=== PATIENT | female | born 1940 | race Caucasian/White ===

== ENCOUNTER 2016-12-19 10:36 | Inpatient (IN) | payer MEDICARE, BC ==
[~2016-12-19] VITALS: Ht 152.4 cm; Wt 86.0 kg
[2016-12-19] VITALS (9 sets, daily range): BP systolic 141–161; BP diastolic 65–73; PULSE 78–104; RESP 20–28; TEMP 96.4–97.7; O2SAT 88–94; Ht 152.4 cm; Wt 86.0 kg
[~2016-12-19 10:36] MED LIST: ACET-2723 PO; ALBU1.252 AEROSOL; ALBU18HF2 INH; AMLO5TAB2 PO; ASPI81TA2 PO; CITA10TA7 PO; FURO40TA5 PO; GABA-305 PO; GABA-336 PO; HYDR-4246 PO; LANS15TA3 PO; MELO-32 PO; POTA10TA14 PO; PRED20TA PO
--- OUTSIDE RECORDS SUMMARY | 2016-12-19 10:44 | XMS REPORT | Referral Summary ---
Author Author [facility], Family [facility] Organization [facility] Address Unknown Phone Unavailable Care Team Providers Care Hat Marker Name Role Phone Angelique Santiago Primary Care Physician [phone] Encounter VC Date(s): 11/14/16 - 11/14/16 [facility], [address] [place] [id number] Discharge Diagnosis: Chronic pain Discharge Diagnosis: Benign hypertension Discharge Diagnosis: Great toe pain Discharge Diagnosis: COPD (chronic obstructive pulmonary disease) Discharge Disposition: 01-Home or Self Care Attending Physician: Feli Santiago DO Admitting Physician: Feli Santiago DO Vital Signs Most recent to 1 oldest [Reference Range]: Temperature Tympanic 36.7 degC [36.6-38.1 degC] (11/14/16 8:24 AM) Peripheral Pulse 73 bpm Rate [60-100 bpm] (11/14/16 8:24 AM) Blood Pressure 134/78 mmHg [90-140/60-90 mmHg] (11/14/16 8:24 AM) SpO2 95 % (11/14/16 8:24 AM) Problem List Condition Effective Dates Status Health Status Informant COPD with acute Active exacerbation(Confirm ed) Anxiety(Confirmed) Active Asthma(Confirmed) Active Benign Active hypertension(Confirm ed) Spondylosis of Active cervical joint(Confirmed) COPD (chronic Active obstructive pulmonary disease)(Confirmed) Chronic Active pain(Confirmed) Degenerative disc Active disease, cervical(Confirmed) Gout(Confirmed) Active Cervicalgia(Confirme Active d) Obesity(Confirmed) Active patient Osteoarthritis(Confi Active rmed) Acute and chronic Active respiratory failure with hypoxia(Confirmed) Acquired Active spondylolisthesis(Co nfirmed) Tobacco Active patient user(Confirmed) Allergies, Adverse Reactions, Alerts Substance Reaction Severity Status cefaclor MUSCLES RELAX Active Medications amLODIPine 5 mg oral tablet 5 mg 1 tabs, Oral, Daily, for blood pressures above 140, # 30 tabs, 11 Refill(s) , Pharmacy: [facility] #[id number], 1 tabs Oral Daily,Instr:for blood pressures above 140 Start Date: 08/14/16 Status: Ordered aspirin 81 mg, Oral, Daily, 0 Refill(s) Start Date: 06/30/14 Status: Ordered Breo Ellipta 100 mcg-25 mcg/inh inhalation powder 1 puffs, Inhalation, Daily, SAMPLE GIVEN, # 30 Each, 0 Refill(s) Start Date: 05/15/16 Status: Ordered citalopram 10 mg oral tablet 10 mg 1 tabs, Oral, Daily, # 30 tabs, 11 Refill(s), Pharmacy: [facility] # [id number], 1 tabs Oral Daily Start Date: 08/14/16 Status: Ordered DuoNeb 0.5 mg-2.5 mg/3 mL inhalation solution 3 mL, Inhalation, QID, # 30 Each, 2 Refill(s), Pharmacy: [facility] # [id number] Start Date: 07/24/16 Status: Ordered gabapentin 100 mg oral capsule 100 mg 1 caps, Oral, BID, as needed for pain, 0 Refill(s) Start Date: 06/19/16 Status: Ordered gabapentin 600 mg oral tablet See Instructions, TAKE ONE TABLET BY MOUTH AT BEDTIME, # 90 tabs, eRx: [facility] #[id number], TAKE ONE TABLET BY MOUTH AT BEDTIME Start Date: 09/20/16 Status: Ordered gabapentin 600 mg oral tablet 600 mg 1 tabs, Oral, Bedtime (once a day), 0 Refill(s) Start Date: 06/19/16 Status: Ordered Lasix 40 mg oral tablet See Instructions, TAKE 1 TABLET BY MOUTH EVERY DAY, # 30 tabs, 2 Refill(s), eRx : [facility] #[id number], TAKE 1 TABLET BY MOUTH EVERY DAY Start Date: 01/12/15 Status: Ordered meloxicam 15 mg oral tablet 15 mg 1 tabs, Oral, Daily, # 30 tabs, 0 Refill(s) Start Date: 08/14/16 Status: Ordered Mucinex DM 30 mg-600 mg oral tablet, extended release 1 tabs, Oral, q12hr, as needed., 0 Refill(s) Start Date: 05/20/14 Status: Ordered multivitamin Daily, 0 Refill(s) Start Date: 11/17/14 Status: Ordered [place] 5 mg-325 mg oral tablet 1-2 tabs, Oral, q4hr, as needed for pain, # 90 tabs, 0 Refill(s) Start Date: 11/14/16 Status: Ordered potassium chloride 10 mEq oral tablet, extended release See Instructions, TAKE 1 TABLET BY MOUTH EVERY DAY, # 30 unknown unit, 2 Refill( s), eRx: [facility] #[id number], TAKE 1 TABLET BY MOUTH EVERY DAY Start Date: 01/12/15 Status: Ordered PriLOSEC 20 mg oral delayed release capsule 20 mg 1 caps, Oral, BID, # 180 caps, 0 Refill(s), Pharmacy: [facility] # [id number], 1 caps Oral BID Start Date: 11/14/16 Status: Ordered ProAir HFA 90 mcg/inh inhalation aerosol See Instructions, INHALE TWO PUFFS BY MOUTH EVERY 4 TO 6 HOURS NEEDED, # 8.5 g, 2 Refill(s), Pharmacy: [facility] #[id number] Start Date: 07/02/15 Status: Ordered Promethazine DM 6.25 mg-15 mg/5 mL oral syrup 5 mL, Oral, q6hr, as needed for cough, # 120 mL, 0 Refill(s), Pharmacy: [facility] #[id number] Start Date: 09/14/16 Status: Ordered Results No data available for this section Immunizations Given and Recorded Vaccine Date Status Refusal Reason influenza virus vaccine, inactivated1 06/22/16 Given influenza virus vaccine, inactivated 06/25/15 Recorded influenza virus vaccine, live 06/25/13 Given influenza virus vaccine, live 07/15/12 Given pneumococcal 13-valent conjugate vaccine 03/22/15 Given pneumococcal 13-valent conjugate vaccine2 08/14/13 Given pneumococcal 23-polyvalent vaccine 08/14/13 Given tetanus-diphth toxoids (Td) adult/adol 03/27/08 Recorded zoster vaccine live 08/07/13 Given 1Result Comment: Seqirus 2Result Comment: [06/10/2015 Uncharted] Uploaded in Error - CC Procedures Procedure Date Related Diagnosis Body Site Appendectomy Cholecystectomy Hysterectomy Social History Social History Type Response Smoking Status Former smoker; Type: Cigarettes; Tobacco use per day: 1 Pack ; Number of years: 30; Total pack years: 301 1Quit in 1990 Assessment and Plan Extracted from: Title: Office Visit Note Author: Feli Santiago DO Date: 11/14/16 Assessment/Plan Benign hypertension BMP today, continue current regimen. Ordered: Office Visit Level 4 Est 48010 Chronic pain Continue current regimen, return to clinic in 3 months. Ordered: Office Visit Level 4 Est 60999 COPD (chronic obstructive pulmonary disease) Exacerbation is improving, continue to monitor. Ordered: Office Visit Level 4 Est 84799 Great toe pain Uric acid today with further recommendations after results. Ordered: Office Visit Level 4 Est 54719 Uric Acid
--- OUTSIDE RECORDS SUMMARY | 2016-12-19 10:44 | XMS REPORT | Continuity of Care Document ---
Author Author [facility] Organization [facility] Address Unknown Phone Unavailable Support Name Relationship Address Phone ALIREZA MOBLEY MD Caregiver [address] [place] [address] [place] [address] JALYN DONOVAN MD Caregiver [address] [place] [address] [place] [address] [phone] RAMIRO SHARPE Next Of Kin [address] [place] [address] Insurance Providers Payer Name Policy Number Subscriber Name Relationship Medicare [id number] Valeria Corrigan 18 Self [facility] [id number] Valeria Corrigan 18 Self Advance Directives Directive Response Recorded Date/Time Advanced Directives Type Living Will DPOA for Healthcare 05/07/14 5:47pm Ordered Resuscitation Status Full Code 05/07/14 5:50pm Resuscitation Documents on File No 05/07/14 5:47pm Chief Complaint and Reason for Visit Chief Complaint COPD EXACERBATION Reason for Visit COPD exacerbation Hyponatremia Hypokalemia Atrial fibrillation, currently in sinus rhythm Constipation Problems Medical Problems Problem Onset Date Status COPD exacerbation Unknown Active COPD exacerbation Unknown Active Hypoxia Unknown Active COPD exacerbation Unknown Active Acute respiratory insufficiency Unknown Active HTN (hypertension) Unknown Active Obesity (BMI 30-39.9) Unknown Active Steroid-induced hyperglycemia Unknown Active Hyponatremia Unknown Active Elevated serum creatinine Unknown Resolved Hypokalemia Unknown Resolved Atrial fibrillation, currently in sinus rhythm Unknown Active Constipation Unknown Active Medications Medication Dose Route Sig Days/Qty Instructions Order Date Discontinued Date Status Meloxicam 15 Mg PO DAILY 03/14/11 Active Hydrochlorothiazide 25 Mg PO DAILY 03/14/11 Active Lansoprazole 15 Mg PO DAILY 03/14/11 05/07/14 Discontinued Gabapentin 300 TID PRN 04/30/14 05/07/14 Discontinued Gabapentin 500 BEDTIME 04/30/14 05/18/14 Discontinued Acetaminophen 325-650 EVERY 5 HOURS PRN PRN ORDERS 05/08/14 Active Amlodipine Besylate 5 Mg PO DAILY 05/08/14 05/18/14 Discontinued Azithromycin IV DAILY 05/08/14 05/18/14 Discontinued Budesonide 05/08/14 05/18/14 Discontinued Ceftriaxone Na/Dextrose,Iso IV DAILY 05/08/14 05/18/14 Discontinued Clotrimazole 1 Tab PO 5 TIMES DAILY DISSOLVE IN MOUTH. 05/08/14 Discontinued Diphenhydramine HCl 1 Cap PO BEDTIME 05/08/14 Active Docusate Sodium 1 Cap PO TWICE A DAY 05/08/14 Active Guaifenesin EVERY 12 HOURS 05/08/14 05/18/14 Discontinued Hydrocodone/Acetaminophen 1-2 EVERY 4 HOURS PRN PRN ORDERS Active Hydrocodone/Chlorphen Polis TWICE A DAY 05/08/14 05/18/14 Discontinued Insulin Glargine,Hum.rec.anlog 5 SQ BEDTIME 05/08/14 05/18/14 Discontinued Loratadine 1 Tab PO DAILY 05/08/14 Active Lorazepam 0.5 IV Every 6 Hours PRN PRN ORDERS 05/08/14 05/18/14 Discontinued Methylprednisolone Sod Succ IV Every 6 Hours 05/08/14 05/18/14 Discontinued Albuterol Sulfate 2 Puff ORAL INH Q4H PRN SHORTNESS OF AIR/WHEEZING 30 Days 05/18/14 Active Amlodipine Besylate 10 Mg PO DAILY 30 Qty 05/18/14 Active Digoxin 125 Mcg PO DAILY 30 Qty 05/18/14 Active Gabapentin 300 Mg PO BEDTIME 30 Days 05/18/14 Active Guaifenesin/Dextromethorphan 1 Tab PO EVERY 12 HOURS 30 Days 05/18/14 Active Hydrocodone/Chlorphen Polis 5 Ml PO TWICE A DAY PRN COUGH 150 Qty 05/18 Active Polyethylene Glycol 3350 17 Gm PO DAILY 1 Qty 05/18/14 Active Sodium Chloride 2 Ransom EA NOSTRIL FOUR TIMES DAILY 30 Days 05/18/14 Active Lorazepam 0.5 Mg PO Every 6 Hours PRN ANXIETY/AIRHUNGER/AGITATION 30 Qty 05/18/14 Active Fluticasone/Salmeterol 1 Puff ORAL INH TWICE A DAY 1 Qty 05/18/14 Active Lansoprazole 1 Cap PO DAILY 30 Qty 05/18/14 Active Prednisone 1 Tab PO taper 13 Qty Take 1 tablet, by mouth, daily with breakfast. 05/18/14 Active Social History No social history. Hospital Discharge Instructions Instructions: Care Instructions: Reason for Hospitalization: COPD exasterbation I was in the hospital because (patient own words): " I couldn't breathe" Discharge Diet: No added salt, may have up to 2 Quarts fluid a day Discharge Activity: As tolerated Follow Up Appointments: Dr Donovan in 1 week Patient Instructions: Refrain from smoking Use Acapella regularly Condition at time of discharge: Good If you have questions about your care or wound, Call [facility] at [phone] and have the smokehouse operator page Dr. Schneider. Condition at time of discharge: Good 1.May drive in 4 weeks if you had your LEFT extremity operated on. 2.May drive in 6 weeks if you had your RIGHT extremity operated on. Wound/Incision Care: Tegaderm 1.Clear dressing is to remain in place for 2 weeks. 2.Do not pick at it or scrub it while showering. 3.If the dressing begins to pull up, secure it with 4x4 gauze pad and tape. 4.You may shower; however, do not submerge yourself in water until the incision is completely healed. Mepilex 1.Dressing to remain in place until your follow up appointment. 2.If this dressing starts peeling up slightly, it may be reinforced, if it peels excessively, notify your surgeon's office. 3.You may shower with the dressing in place, but do not submerge in water 4.Do not allow water to seep under the dressing, if it should seep under, remove the dressing and notify your surgeon. Notify Physician If: Call your Surgeon if you have: 1.Chest pain, difficulty breathing, fever>100.5 degrees, chills, heart rate >100, confusion, or persistent nausea/vomitting. 2.Severe pain, swelling, redness, or warmth in either of your legs. 3.During office hours, call [phone] 4. After hours, please call [facility] at [phone], and have the smokehouse operator page your Surgeon IN THE EVENT OF AN EMERGENCY, seek medical care at the nearest Emergency Room General Information: Please make a follow up with Dr. Grant in regards to the questionable pulmonary nodule seen on CXR. It likely appears as artifact, but follow up is warrented in 2 weeks. Condition at time of discharge: Good Care Plan Discharge Patient: Goal: Understand discharge plan Patient Instructions: see patient instructions Plan of Care Discharge Date 05/18/14 6:10pm Disposition 01 DISCHARGED HOME, SELF-CARE Instructions/Education Provided Chronic Obstructive Pulmonary Disease Prescriptions See Medications Section Functional Status Query Response Date Recorded Physical Hygiene Self May 18, 2014 3:50pm Disabilities Visual May 18, 2014 3:50pm Devices Used Glasses May 18, 2014 3:50pm Dressing Self May 18, 2014 3:50pm Ambulation Self May 18, 2014 3:50pm Diet Self May 18, 2014 3:50pm Mental Status Alert May 18, 2014 3:50pm Disabilities Visual May 18, 2014 3:50pm Devices Used Glasses May 18, 2014 3:50pm Physical Hygiene Self May 18, 2014 3:50pm Dressing Self May 18, 2014 3:50pm Ambulation Self May 18, 2014 3:50pm Diet Self May 18, 2014 3:50pm Allergies, Adverse Reactions, Alerts Allergen Type Severity Reaction Status Last Updated No Known Allergies Active 04/30/14 Immunizations Name Given Type Hx Influenza Vaccination Y fall 2012 Historical Hx Pneumococcal Vaccination Y fall 2012 Historical Hx Influenza Vaccination Y fall 2012 Historical Vital Signs Acute Vital Signs Vital Response Date/Time Temperature (Fahrenheit) 95.8 deg F (96.8 - 99.1) Temperature (Calculated Celsius) 35.11252 degrees C (36.0 - 37.3) Temperature Source Oral Pulse Rate (adult) 81 bpm (60 - 100) Respiratory Rate 12 breaths/min (10 - 20) O2 Sat by Pulse Oximetry 95 % (90 - 100) Oxygen Delivery Method Room Air Blood Pressure 161/71 mm Hg Blood Pressure Source Automatic Cuff Height 5 ft 3 in Weight 199 lb Body Mass Index 35.0 kg/m^2 Results Test Source Date Result Interp. Ref. Range Comments Activated Partial Thromboplast Time March 13, 2011 11:50pm 30.1 SEC N 24- 36 Alanine Aminotransferase (ALT/SGPT) May 11, 2014 4:25am 52 U/L N 9- 52 Albumin May 11, 2014 4:25am 3.2 G/DL L 3.5-5.0 Albumin/Globulin Ratio May 11, 2014 4:25am 1.4 RATIO N 1.1-2.2 Alkaline Phosphatase May 11, 2014 4:25am 65 U/L N 38-126 Amylase Level March 13, 2011 11:50pm 68 U/L N 30-110 Anion Gap May 18, 2014 4:48am 7 MEQ/L N 5-15 Anisocytosis May 18, 2014 4:48am 1+ - Aspartate Amino Transf (AST/SGOT) May 11, 2014 4:25am 30 U/L N 14-36 B-Type Natriuretic Peptide March 13, 2011 11:50pm 117 PG/ML H 15-100 BUN/Creatinine Ratio May 18, 2014 4:48am 34 RATIO H 6-26 Band Neutrophils # May 18, 2014 4:48am 0.1 T/MM3 - Band Neutrophils % May 18, 2014 4:48am 1.0 % N 0-6 Basophils # (Auto) March 13, 2011 11:50pm 0.0 T/MM3 N 0-0.2 Basophils (%) (Auto) March 13, 2011 11:50pm 0.5 % N 0-2 Blood Urea Nitrogen May 18, 2014 4:48am 41.0 MG/DL H 7-17 Calcium Level May 18, 2014 4:48am 9.0 MG/DL N 8.4-10.2 Calculated Osmolality May 18, 2014 4:48am 260 MOSM/KG L 261-280 Carbon Dioxide Level May 18, 2014 4:48am 28 MEQ/L N 22-30 Chemistry Specimen Hemolysis May 18, 2014 4:48am < 15 0-25 0-25: No Hemolysis.26-70: Slight Hemolysis - can falsely elevate K and Urine Protein. 71-285: Moderate Hemolysis - can falsely elevate K, Troponin I, CA 19-9, PTH, CSF GLucose, and Urine Protein, and can falsely decrease Phenytoin. 286-999: Gross Hemolysis - can falsely elevate K, Troponin I, CA 19-9, PTH, CSF Glucose, and Urine Protine, and can falsely decrease Phenytoin. Recommend specimen recollection. Chloride Level May 18, 2014 4:48am 94 MEQ/L L 98-107 Conjugated Bilirubin March 13, 2011 11:50pm 0.00 MG/DL N 0.00-0.30 Creatinine May 18, 2014 4:48am 1.2 MG/DL N 0.7-1.2 D-Dimer April 12, 2011 11:35am 349 NG/ML H 0-230 CALLED TO SANA 1225 CAU READ BACK <224 NG/ML=PRESUMPTIVE NEGATIVE FOR PE OR DVT >224 NG/ML=ADDITIONAL EVALUATION FOR PE OR DVT RECOMMENDED Eosinophils # (Auto) March 13, 2011 11:50pm 0.4 T/MM3 N 0-0.5 Eosinophils (%) (Auto) March 13, 2011 11:50pm 4.9 % H 0-4 Globulin May 11, 2014 4:25am 2.3 G/DL L 2.4-3.6 Glomerular Filtration Rate Calc May 18, 2014 4:48am 44 - Glucometer May 18, 2014 5:06pm 108 mg/dL N 65-110 Glucose Level May 18, 2014 4:48am 123 MG/DL H 65-110 Hematocrit May 18, 2014 4:48am 35.9 % L 36-46 Hemoglobin May 18, 2014 4:48am 12.2 GM/DL N 12-16 Hemoglobin A1c May 04, 2014 5:05am 5.3 % L 6-7 <6.0 NON-DIABETIC RANGE6.0-7.0 ADA THERAPEUTIC RANGE >7.0 ACTION SUGGESTED Icterus Index May 18, 2014 4:48am < 2 0-7 Immature Granulocyte # (Auto) March 13, 2011 11:50pm 0.02 T/MM3 N 0.00- 0.03 Immature Granulocyte % (Auto) March 13, 2011 11:50pm 0.3 % N 0.0-0.5 Lab Scanned Report December 02, 2013 1:53pm LAB TEST FORM REQUEST [id number] - Lipase March 13, 2011 11:50pm 112 U/L N 23-300 Lymphocytes # (Auto) March 13, 2011 11:50pm 3.7 T/MM3 N 1-4.8 Lymphocytes # (Manual) May 18, 2014 4:48am 0.5 T/MM3 L 1-4.8 Lymphocytes % (Manual) May 18, 2014 4:48am 6.0 % L 23-45 Lymphocytes (%) (Auto) March 13, 2011 11:50pm 47.1 % H 23-45 Magnesium Level May 09, 2014 4:36am 2.0 MG/DL N 1.6-2.3 COMMENT sampson Mean Corpuscular Hemoglobin May 18, 2014 4:48am 30.1 UUG N 26-34 Mean Corpuscular Hemoglobin Concent May 18, 2014 4:48am 34.0 GM/DL N 31-37 Mean Corpuscular Volume May 18, 2014 4:48am 88.6 UM3 N 80-100 Mean Platelet Volume May 18, 2014 4:48am 10.2 UM3 N 9.4-12.4 Metamyelocytes # May 10, 2014 4:50am 0.1 T/MM3 - Metamyelocytes % May 10, 2014 4:50am 1.0 % H 0-0 Monocytes # (Auto) March 13, 2011 11:50pm 0.7 T/MM3 N 0-0.8 Monocytes # (Manual) May 18, 2014 4:48am 0.2 T/MM3 N 0-0.8 Monocytes % (Manual) May 18, 2014 4:48am 2.0 % N 0-9.0 Monocytes (%) (Auto) March 13, 2011 11:50pm 8.4 % N 0-9.0 AB-Hrl-P-Type Natriuretic Peptide April 30, 2014 8:30pm 441 PG/ML H 0- 175 Rule in cut points: <50 years old=450; 50-75 years old=900; >75 years old=1800; When utilizing ProBNP rule-in cut points, adjustment for impaired renal function is typically not required. Neutrophils # (Auto) March 13, 2011 11:50pm 3.0 T/MM3 N 1.8-7.7 Neutrophils # (Manual) May 18, 2014 4:48am 8.2 T/MM3 H 1.8-7.7 Neutrophils % (Manual) May 18, 2014 4:48am 91.0 % H 33-66 Neutrophils (%) (Auto) March 13, 2011 11:50pm 38.8 % N 33-66 Platelet Count May 18, 2014 4:48am 93 T/MM3 L 130-400 Potassium Level May 18, 2014 4:48am 4.7 MEQ/L N 3.6-5 Prealbumin May 01, 2014 4:00am 27.1 MG/DL N 17.6-36.0 COMMENT sampson Prothromb Time International Ratio March 13, 2011 11:50pm 1.01 N 0.86- 1.10 THERAPUTIC RANGE=2.00-3.00 FOR ANTI-THROMBOSIS THERAPUTIC RANGE=2.50- 3.50 FOR IMPLANTED VALVE RDW Standard Deviation May 18, 2014 4:48am 45.1 FL N 36.9-50.2 Reactive Lymphocytes # April 30, 2014 8:30pm 0.1 T/MM3 H 0-0 Reactive Lymphocytes % April 30, 2014 8:30pm 1.0 % H 0-0 Red Blood Count May 18, 2014 4:48am 4.05 M/MM3 N 4.00-5.20 Sodium Level May 18, 2014 4:48am 129 MEQ/L L 134-144 Thyroid Stimulating Hormone (TSH) May 01, 2014 4:00am 1.10 MIU/L N 0.47-4.68 COMMENT sampson Total Bilirubin May 11, 2014 4:25am 0.40 MG/DL N 0.20-1.30 Total Protein May 11, 2014 4:25am 5.5 G/DL L 6.3-8.2 Troponin I April 30, 2014 8:30pm < 0.012 ng/ml 0-0.12 Turbidity May 18, 2014 4:48am < 20 0-20 Unconjugated Bilirubin March 13, 2011 11:50pm 0.10 MG/DL N 0.00-1.10 Urinalysis Comment May 01, 2014 12:01am Microscopic not ind. - Has specimen been collected/obtained? Y Urine Bilirubin May 01, 2014 12:01am Negative - Has specimen been collected/obtained? Y Urine Blood May 01, 2014 12:01am Negative - Has specimen been collected/obtained? Y Urine Collection Type May 01, 2014 12:01am Voided-not cc-midstr - Has specimen been collected/obtained? Y Urine Color May 01, 2014 12:01am Yellow - Has specimen been collected/obtained? Y Urine Glucose (UA) May 01, 2014 12:01am Negative - Has specimen been collected/obtained? Y Urine Ketones May 01, 2014 12:01am Negative - Has specimen been collected/obtained? Y Urine Leukocyte Esterase May 01, 2014 12:01am Negative - Has specimen been collected/obtained? Y Urine Nitrite May 01, 2014 12:01am Negative - Has specimen been collected/obtained? Y Urine Protein May 01, 2014 12:01am Negative - Has specimen been collected/obtained? Y Urine Specific Hope May 01, 2014 12:01am 1.010 L - Has specimen been collected/obtained? Y Urine Turbidity May 01, 2014 12:01am Clear - Has specimen been collected/obtained? Y Urine Urobilinogen May 01, 2014 12:01am 0.2 EU/DL - Has specimen been collected/obtained? Y Urine pH May 01, 2014 12:01am 6.0 - Has specimen been collected/ obtained? Y White Blood Count May 18, 2014 4:48am 9.0 T/MM3 N 4.5-11.0 Name: VALERIA CORRIGAN Unit #: [id number] : 1940 Sex: F Loc / Svc: MED DOS: Signed Report #: [id number] DIAGNOSTIC IMAGING REPORT TYPE OF EXAM: CHEST 1 VIEW Dictated By: JACKY GRANT MD INDICATION: ITS.REASON: cough, soa CHEST 1 VIEW: Comparison: May 11, 2014 Findings: New platelike atelectasis in the right lung base. Left lung base is stable. Upper lung mott are clear. No pneumothorax. Left-sided PICC line in place. Cardiac silhouette, pulmonary vascularity and mediastinal contours are within normal limits. Impression: New right basilar atelectasis. Small left effusion. . Procedures No known history of procedures. Encounters Encounter Location Date/Time Discharged Inpatient [facility] 05/07/14 5:25pm Discharged Inpatient [facility] 04/30/14 10:28pm Recent Diagnosis COPD exacerbation Hyponatremia Hypokalemia Atrial fibrillation, currently in sinus rhythm Constipation
--- OUTSIDE RECORDS SUMMARY | 2016-12-19 10:44 | XMS REPORT | Referral Summary ---
Author Author [facility], [facility] Organization [facility] Address Unknown Phone Unavailable Care Team Providers Care Laryngologist Name Role Phone Angelique Santiago Primary Care Physician [phone] Encounter Date(s): 06/22/16 - 06/22/16 [facility] Tenorio [place], [address] [place] [address] Discharge Diagnosis: COPD with acute exacerbation Discharge Diagnosis: Acute and chronic respiratory failure with hypoxia Discharge Diagnosis: Benign hypertension Discharge Diagnosis: Encounter for immunization Discharge Diagnosis: Hospital discharge follow-up Discharge Disposition: 01-Home or Self Care Attending Physician: Feli Santiago DO Admitting Physician: Feli Santiago DO Vital Signs Most recent to 1 oldest [Reference Range]: Temperature Tympanic 36.6 degC [36.6-38.1 degC] (06/22/16 9:00 AM) Peripheral Pulse 70 bpm Rate [60-100 bpm] (06/22/16 9:00 AM) Respiratory Rate 18 br/min [14-20 br/min] (06/22/16 9:00 AM) Blood Pressure 160/80 mmHg [90-140/60-90 mmHg] *HI* (06/22/16 9:00 AM) SpO2 90 % (06/22/16 9:00 AM) Problem List Condition Effective Dates Status [...] Severity Status cefaclor MUSCLES RELAX Active Medications acetaminophen 325 mg oral tablet 1-2 tabs, Oral, q5hr, as needed for pain, 0 Refill(s) Start Date: 05/20/14 Status: Ordered amLODIPine 5 mg oral tablet 5 mg 1 tabs, Oral, Daily, for blood pressures above 140, # 30 tabs, 0 Refill(s) , Pharmacy: [facility] #[id number], 1 tabs Oral Daily,Instr:for blood pressures above 140 Start Date: 06/22/16 Status: Ordered aspirin 81 mg, Oral, Daily, 0 Refill(s) Start Date: 06/30/14 Status: Ordered Bactroban 2% topical cream 1 donta, Topical, TID, # 30 g, 0 Refill(s), Pharmacy: [facility] #[id number] Start Date: 05/03/16 Status: Ordered Breo Ellipta 100 mcg-25 mcg/inh inhalation powder 1 puffs, Inhalation, Daily, SAMPLE GIVEN, # 30 Each, 0 Refill(s) Start Date: 05/15/16 Status: Ordered citalopram 10 mg oral tablet 10 mg 1 tabs, Oral, Daily, # 30 tabs, 1 Refill(s), Pharmacy: [facility] # [id number], 1 tabs Oral Daily Start Date: 05/15/16 Status: Ordered Colace 100 mg oral capsule 1 caps, Oral, BID, as needed for constipation, # 20 caps, 0 Refill(s) Start Date: 05/20/14 Status: Ordered DuoNeb 0.5 mg-2.5 mg/3 mL inhalation solution 3 mL, Inhalation, QID, # 30 Each, 0 Refill(s), Pharmacy: [facility] # [id number] Start Date: 11/05/14 Status: Ordered gabapentin 100 mg oral capsule [...] # 30 tabs, 2 Refill(s), eRx : [facility] #[id number], TAKE 1 TABLET BY MOUTH EVERY DAY Start Date: 01/12/15 Status: Ordered Mucinex DM 30 mg-600 mg oral tablet, extended release 1 tabs, Oral, q12hr, as needed., 0 Refill(s) Start Date: 05/20/14 Status: Ordered multivitamin Daily, 0 Refill(s) Start Date: 11/17/14 Status: Ordered Longview 5 mg-325 mg oral tablet 1-2 tabs, Oral, q4hr, as needed for pain, # 90 tabs, 0 Refill(s) Start Date: 05/15/16 Status: Ordered potassium chloride 10 mEq oral tablet, extended release See Instructions, TAKE 1 TABLET BY MOUTH EVERY DAY, # 30 unknown unit, 2 Refill( s), eRx: [facility] #[id number], TAKE 1 TABLET BY MOUTH EVERY DAY Start Date: 01/12/15 Status: Ordered predniSONE 20 mg oral tablet 20 mg 1 tabs, Oral, Daily, X 14 days, # 14 tabs, 0 Refill(s), Pharmacy: [facility] #[id number], 1 tabs Oral Daily,x14 days Start Date: 06/22/16 Stop Date: 07/06/16 Status: Ordered Prevacid SoluTab 15 mg oral tablet, disintegrating 15 mg 1 tabs, Oral, BID, 0 Refill(s) Start Date: 06/19/16 Status: Ordered ProAir HFA 90 mcg/inh inhalation aerosol See Instructions, INHALE TWO PUFFS BY MOUTH EVERY 4 TO 6 HOURS NEEDED, # 8.5 g, 2 Refill(s), Pharmacy: [facility] #[id number] Start Date: 07/02/15 Status: Ordered Spiriva 18 mcg, Inhalation, Daily, 0 Refill(s), Samples: 1 Start Date: 06/22/16 Status: Ordered Valium 5 mg oral tablet 2.5 mg 0.5 tabs, Oral, Daily, as needed for anxiety, # 15 tabs, 0 Refill(s) Start Date: 10/25/15 Status: Ordered Results No data available for this section Immunizations Vaccine Date Refusal Reason influenza virus vaccine, inactivated1 06/22/16 influenza virus vaccine, inactivated 06/25/15 influenza virus vaccine, live 06/25/13 influenza virus vaccine, live 07/15/12 pneumococcal 13-valent conjugate vaccine 03/22/15 pneumococcal 23-polyvalent vaccine 08/14/13 tetanus-diphth toxoids (Td) adult/adol 03/27/08 zoster vaccine live 08/07/13 1Result Comment: Seqirus Procedures Procedure Date Related Diagnosis Body Site Appendectomy Cholecystectomy Hysterectomy Social History Social History Type Response Smoking Status Former smoker; Type: Cigarettes; Tobacco use per day: 1 Pack ; Number of years: 30; Total pack years: 301 1Quit in 1990 Assessment and Plan Extracted from: Title: TCM Hosp f/u Author: Feli Santiago DO Date: 06/22/16 Assessment/Plan Acute and chronic respiratory failure with hypoxia Continue the oxygen for now. We discussed that her goal will be to try to get herO2 sat above 92 percent. She should probably wear oxygen at all times now as indicated by her O2 sats off of oxygen. We will reevaluate in one month. Ordered: [facility] 7 Day Disch 71518 Benign hypertension Continue amlodipine, recheck blood pressure was 144/68. We'll reevaluate in one month when she is off the steroids. Ordered: [facility] 7 Day Disch [id number] COPD with acute exacerbation We will go ahead and add Spiriva and a sample was given today. We will lengthen out patient's prednisone taper. She'll go back up to 20 mg dose and will do this for 2 weeks and then come down to 10 mg for one week prior to discontinuing. In 1 month she will follow-up in one been off the steroids for about a week. Ordered: [facility] 7 Day Disch [id number] Encounter for immunization Hospital discharge follow-up Continue oxygen, continue all medication changes, return to clinic in 1 month. Ordered: [facility] 7 Day Disch [id number]
--- OUTSIDE RECORDS SUMMARY | 2016-12-19 10:44 | XMS REPORT | Continuity of Care Document ---
Author Author [facility] Organization [facility] Address Unknown Phone Unavailable Support Name Relationship Address Phone SERENITYEKATERINA CALLEJAS Caregiver [address] [place] [address] [address] [place] [address] NEENA SIMS MD Caregiver [address] [place] [address] JALYN TIDWELL MD Caregiver [address] [phone] RAMIRO SHARPE Next Of Kin [address] [place] [address] Insurance Providers Payer Name Policy Number Subscriber Name Relationship Medicare [id number] Valeria Corrigan 18 Self [facility] [id number] Valeria Corrigan 18 Self Advance Directives Directive Response Recorded Date/Time Advanced Directives Type Living Will DPOA for Healthcare 05/01/14 12:11am Ordered Resuscitation Status Full Code 04/30/14 10:28pm Resuscitation Documents on File Yes 05/01/14 12:11am Chief Complaint and Reason for Visit Chief Complaint COPD EXACERBATION Reason for Visit COPD exacerbation COPD exacerbation Hypoxia COPD exacerbation Acute respiratory insufficiency HTN (hypertension) Obesity (BMI 30-39.9) Steroid-induced hyperglycemia Hyponatremia Elevated serum creatinine Problems Medical Problems Problem Onset Date Status COPD exacerbation Unknown Active COPD exacerbation Unknown Active Hypoxia Unknown Active COPD exacerbation Unknown Active Acute respiratory insufficiency Unknown Active HTN (hypertension) Unknown Active Obesity (BMI 30-39.9) Unknown Active Steroid-induced hyperglycemia Unknown Active Hyponatremia Unknown Resolved Elevated serum creatinine Unknown Resolved Medications Medication Dose Route Sig Days/Qty Instructions Order Date Discontinued Date Status Meloxicam 15 Mg PO DAILY 03/14/11 Active Hydrochlorothiazide 25 Mg PO DAILY 03/14/11 Active Lansoprazole 15 Mg PO DAILY 03/14/11 05/07/14 Discontinued Gabapentin 300 TID PRN 04/30/14 05/07/14 Discontinued Gabapentin 500 BEDTIME 04/30/14 Active Social History No social history. Hospital Discharge Instructions Instructions: Care Instructions: Reason for Hospitalization: COPD I was in the hospital because (patient own words): copd-help breathe Discharge Diet: 1800 ada New Scripts Called to Pharmacy: -Duoneb QID 3ml -Norvasc 5mg daily -Zithromax 500mg IV daily -Pulmicort 0.5 mg aerosol BID -Rocephin 1 gm IV daily -Mycelex 10mg PO 5xD -Colace 100mg BID -Benadryl 25mg at bedtime -Mucinex LA 600mg q12hrs -Tussionex 5ml po BID -Lantus 5 units at bedtime -Claritin 10mg before breakfast -Solumedrol 62.5mg IV every 6hrs -Protonix 40mg daily before breakfast -Deep Sea 2 sprays each nostril 4 times a day -Tylenol 325-650mg every 5 hours as needed for pain/fever -Ventolin HFA 2 puffs inhalation every 4hours as needed -Duoneb 3ml aerosol as needed -[place] 5/325 1-2 tablets every 5 hours as needed for pain -Humalog (sliding scale) as needed -Ativan 0.5mg IV every 6 hours as needed for anxiety -Metoprolol 5mg IV every 4 hours for Blood pressure greater then 180 as needed -Zofran 4mg IV every 6 hours as needed -Miralax 17 grams daily as needed -saline flush as needed -PRN orders - Condition at time of discharge: Good Care Plan Discharge Patient: Goal: Baseline oxygen level Patient Instructions: other see patient instructions Discharge Patient: Goal: Baseline oxygen level Patient Instructions: other see patient instructions Patient Instructions: see patient instructions see patient instructions Care Plan Discharge Patient: Goal: Maximum functional status Patient Instructions: see patient instructions Plan of Care Discharge Date 05/07/14 5:24pm Disposition 61 TO ANY SWING BED Instructions/Education Provided Chronic Obstructive Pulmonary Disease Prescriptions See Medications Section Functional Status Query Response Date Recorded Physical Hygiene Self May 07, 2014 5:20pm Disabilities Visual May 07, 2014 5:20pm Devices Used Glasses None May 07, 2014 5:20pm Dressing Self May 07, 2014 5:20pm Ambulation Self May 07, 2014 5:20pm Diet Self May 07, 2014 5:20pm Mental Status Alert Oriented May 07, 2014 5:20pm Disabilities Visual May 07, 2014 5:20pm Devices Used Glasses None May 07, 2014 5:20pm Physical Hygiene Self May 07, 2014 5:20pm Dressing Self May 07, 2014 5:20pm Ambulation Self May 07, 2014 5:20pm Diet Self May 07, 2014 5:20pm Allergies, Adverse Reactions, Alerts Allergen Type Severity Reaction Status Last Updated No Known Allergies Active 04/30/14 Immunizations Name Given Type Hx Influenza Vaccination Y fall 2012 Historical Hx Pneumococcal Vaccination fall Historical Hx Influenza Vaccination fall Historical Vital Signs Acute Vital Signs Vital Response Date/Time Temperature (Fahrenheit) 98.0 deg F (96.8 - 99.1) Temperature (Calculated Celsius) 36.78197 degrees C (36.0 - 37.3) Temperature Source Temporal Pulse Rate (adult) 73 bpm (60 - 100) Respiratory Rate 16 breaths/min (10 - 20) O2 Sat by Pulse Oximetry 93 % (90 - 100) Oxygen Flow Rate 3.00 L/min Blood Pressure 148/67 mm Hg Blood Pressure Source Automatic Cuff Height 5 ft 3 in Weight 206 lb Body Mass Index 36.0 kg/m^2 Results Test Source Date Result Interp. Ref. Range Comments Activated Partial Thromboplast Time March 13, 2011 11:50pm 30.1 SEC N 24- 36 Alanine Aminotransferase (ALT/SGPT) May 05, 2014 4:38am 69 U/L H 9- 52 Albumin May 05, 2014 4:38am 3.1 G/DL L 3.5-5.0 Albumin/Globulin Ratio May 05, 2014 4:38am 1.5 RATIO N 1.1-2.2 Alkaline Phosphatase May 05, 2014 4:38am 61 U/L N 38-126 Amylase Level March 13, 2011 11:50pm 68 U/L N 30-110 Anion Gap May 07, 2014 4:30am 9 MEQ/L N 5-15 Aspartate Amino Transf (AST/SGOT) May 05, 2014 4:38am 48 U/L H 14-36 B-Type Natriuretic Peptide March 13, 2011 11:50pm 117 PG/ML H 15-100 BUN/Creatinine Ratio May 07, 2014 4:30am 36 RATIO H 6-26 Band Neutrophils # May 06, 2014 5:21am 0.2 T/MM3 - Band Neutrophils % May 06, 2014 5:21am 2.0 % N 0-6 Basophils # (Auto) March 13, 2011 11:50pm 0.0 T/MM3 N 0-0.2 Basophils (%) (Auto) March 13, 2011 11:50pm 0.5 % N 0-2 Blood Urea Nitrogen May 07, 2014 4:30am 36.0 MG/DL H 7-17 Calcium Level May 07, 2014 4:30am 9.2 MG/DL N 8.4-10.2 Calculated Osmolality May 07, 2014 4:30am 276 MOSM/KG N 261-280 Carbon Dioxide Level May 07, 2014 4:30am 30 MEQ/L N 22-30 Chemistry Specimen Hemolysis May 07, 2014 4:30am 136 H 0-25 0-25: No Hemolysis.26-70: Slight Hemolysis - [...] Phenytoin. Recommend specimen recollection. Chloride Level May 07, 2014 4:30am 100 MEQ/L N 98-107 Conjugated Bilirubin March 13, 2011 11:50pm 0.00 MG/DL N 0.00-0.30 Creatinine May 07, 2014 4:30am 1.0 MG/DL N 0.7-1.2 D-Dimer April 12, 2011 11:35am 349 NG/ML H 0-230 CALLED TO SANA 1225 CAU READ BACK <224 NG/ML=PRESUMPTIVE NEGATIVE FOR PE OR DVT >224 NG/ML=ADDITIONAL EVALUATION FOR PE OR DVT RECOMMENDED Eosinophils # (Auto) March 13, 2011 11:50pm 0.4 T/MM3 N 0-0.5 Eosinophils (%) (Auto) March 13, 2011 11:50pm 4.9 % H 0-4 Globulin May 05, 2014 4:38am 2.1 G/DL L 2.4-3.6 Glomerular Filtration Rate Calc May 07, 2014 4:30am 54 - Glucometer May 07, 2014 10:02am 165 mg/dL H 65-110 Glucose Level May 07, 2014 4:30am 105 MG/DL N 65-110 Hematocrit May 07, 2014 4:30am 35.1 % L 36-46 Hemoglobin May 07, 2014 4:30am 11.4 GM/DL L 12-16 Hemoglobin A1c May 04, 2014 5:05am 5.3 % L 6-7 <6.0 NON-DIABETIC RANGE6.0-7.0 ADA THERAPEUTIC RANGE >7.0 ACTION SUGGESTED Icterus Index May 07, 2014 4:30am < 2 0-7 Immature Granulocyte # (Auto) March 13, 2011 11:50pm 0.02 T/MM3 N 0.00- 0.03 Immature Granulocyte % (Auto) March 13, 2011 11:50pm 0.3 % N 0.0-0.5 Lab Scanned Report December 02, 2013 1:53pm LAB TEST FORM REQUEST [id number] - Lipase March 13, 2011 11:50pm 112 U/L N 23-300 Lymphocytes # (Auto) March 13, 2011 11:50pm 3.7 T/MM3 N 1-4.8 Lymphocytes # (Manual) May 07, 2014 4:30am 0.7 T/MM3 L 1-4.8 Lymphocytes % (Manual) May 07, 2014 4:30am 7.0 % L 23-45 Lymphocytes (%) (Auto) March 13, 2011 11:50pm 47.1 % H 23-45 Mean Corpuscular Hemoglobin May 07, 2014 4:30am 29.3 UUG N 26-34 Mean Corpuscular Hemoglobin Concent May 07, 2014 4:30am 32.5 GM/DL N 31-37 Mean Corpuscular Volume May 07, 2014 4:30am 90.2 UM3 N 80-100 Mean Platelet Volume May 07, 2014 4:30am 10.9 UM3 N 9.4-12.4 Monocytes # (Auto) March 13, 2011 11:50pm 0.7 T/MM3 N 0-0.8 Monocytes # (Manual) May 07, 2014 4:30am 0.2 T/MM3 N 0-0.8 Monocytes % (Manual) May 07, 2014 4:30am 2.0 % N 0-9.0 Monocytes (%) (Auto) March 13, 2011 11:50pm 8.4 % N 0-9.0 SH-Xhg-L-Type Natriuretic Peptide April 30, 2014 8:30pm 441 PG/ML H 0- 175 Rule in cut points: <50 years old=450; 50-75 years old=900; >75 years old=1800; When utilizing ProBNP rule-in cut points, adjustment for impaired renal function is typically not required. Neutrophils # (Auto) March 13, 2011 11:50pm 3.0 T/MM3 N 1.8-7.7 Neutrophils # (Manual) May 07, 2014 4:30am 8.7 T/MM3 H 1.8-7.7 Neutrophils % (Manual) May 07, 2014 4:30am 91.0 % H 33-66 Neutrophils (%) (Auto) March 13, 2011 11:50pm 38.8 % N 33-66 Platelet Count May 07, 2014 4:30am 188 T/MM3 N 130-400 Potassium Level May 07, 2014 4:30am 4.1 MEQ/L N 3.6-5 Prealbumin May 01, 2014 4:00am 27.1 MG/DL N 17.6-36.0 COMMENT sampson Prothromb Time International Ratio March 13, 2011 11:50pm 1.01 N 0.86- 1.10 THERAPUTIC RANGE=2.00-3.00 FOR ANTI-THROMBOSIS THERAPUTIC RANGE=2.50- 3.50 FOR IMPLANTED VALVE RDW Standard Deviation May 07, 2014 4:30am 46.4 FL N 36.9-50.2 Reactive Lymphocytes # April 30, 2014 8:30pm 0.1 T/MM3 H 0-0 Reactive Lymphocytes % April 30, 2014 8:30pm 1.0 % H 0-0 Red Blood Count May 07, 2014 4:30am 3.89 M/MM3 L 4.00-5.20 Sodium Level May 07, 2014 4:30am 139 MEQ/L N 134-144 Thyroid Stimulating Hormone (TSH) May 01, 2014 4:00am 1.10 MIU/L N 0.47-4.68 COMMENT sampson Total Bilirubin May 05, 2014 4:38am < 0.10 MG/DL L 0.20-1.30 Total Protein May 05, 2014 4:38am 5.2 G/DL L 6.3-8.2 Troponin I April 30, 2014 8:30pm < 0.012 ng/ml 0-0.12 Turbidity May 07, 2014 4:30am 82 H 0-20 0-21: Turbidity not present.22-999: Turbidity present - Gross turbidity can falsely decrease Lipase and Triglycerides. Unconjugated Bilirubin March 13, 2011 11:50pm 0.10 [...] Has specimen been collected/obtained? Y Urine Specific Sprakers May 01, 2014 12:01am 1.010 L - Has specimen been collected/obtained? Y Urine Turbidity May 01, 2014 12:01am Clear - Has specimen been collected/obtained? Y Urine Urobilinogen May 01, 2014 12:01am 0.2 EU/DL - Has specimen been collected/obtained? Y Urine pH May 01, 2014 12:01am 6.0 - Has specimen been collected/ obtained? Y White Blood Count May 07, 2014 4:30am 9.6 T/MM3 N 4.5-11.0 Name: VALERIA CORRIGAN Unit #: [id number] : 1940 Sex: F Loc / Svc: MED DOS: 04/30/14 Signed Report #: [id number] DIAGNOSTIC IMAGING REPORT TYPE OF EXAM: CHEST POST PROCEDURE 1 VIEW Dictated By: JACKY GRANT MD INDICATION: ITS.REASON: confirm picc placement CHEST POST PROCEDURE 1 VIEW: Comparison: May 04, 2014 Findings: New left PICC line tip projects over the mid SVC. No pneumothorax. No new areas of airspace consolidation. No pleural effusion. Heart size, pulmonary vascularity and mediastinal contours are unchanged. Impression: New left PICC line tip projects over the mid SVC. . Procedures No known history of procedures. Encounters Encounter Location Date/Time Discharged Inpatient [facility] 04/30/14 10:28pm Recent Diagnosis COPD exacerbation COPD exacerbation Hypoxia COPD exacerbation Acute respiratory insufficiency HTN (hypertension) Obesity (BMI 30-39.9) Steroid-induced hyperglycemia Hyponatremia Elevated serum creatinine
--- OUTSIDE RECORDS SUMMARY | 2016-12-19 10:45 | XMS REPORT | Continuity of Care Document ---
Author Author [facility] Organization [facility] Address Unknown Phone Unavailable Support Name Relationship Address Phone ARCHANATAISHA LICEA Caregiver [facility] [address], [place] [id number] JALYN TIDWELL MD Caregiver [address], [place] [phone] RAMIRO SHARPE Next Of Kin [address] [place], [place] [id number] Insurance Providers Payer Name Policy Number Subscriber Name Relationship Medicare [id number] Valeria Corrigan 17 Self Blue [employer] Select Plan 65 [id number] Valeria Corrigan 17 Self Advance Directives Directive Response Recorded Date/Time Advanced Directives Type Living Will DPOA for Healthcare 10/16/14 6:55pm Problems Medical Problems Problem Onset Date Status COPD exacerbation Unknown Active COPD exacerbation Unknown Active Hypoxia Unknown Active COPD exacerbation Unknown Active Acute respiratory insufficiency Unknown Active HTN (hypertension) Unknown Active Obesity (BMI 30-39.9) Unknown Active Steroid-induced hyperglycemia Unknown Active Hyponatremia Unknown Active Elevated serum creatinine Unknown Resolved Hypokalemia Unknown Resolved Atrial fibrillation, currently in sinus rhythm Unknown Active Constipation Unknown Active Serum potassium elevated Unknown Active Serum potassium elevated Unknown Active Medications Medication Dose Route Sig Days/Qty Instructions Order Date Discontinued Date Status Meloxicam 15 Mg PO DAILY 03/14/11 Active Lansoprazole 15 [...] TIMES DAILY DISSOLVE IN MOUTH. 05/08/14 Discontinued Docusate Sodium 1 Cap PO TWICE A DAY 05/08/14 Active Guaifenesin EVERY 12 HOURS 05/08/14 05/18/14 Discontinued Hydrocodone/Acetaminophen 1-2 EVERY 4 HOURS PRN PRN ORDERS Active Hydrocodone/Chlorphen Polis TWICE A DAY 05/08/14 05/18/14 Discontinued Insulin Glargine,Hum.rec.anlog 5 SQ BEDTIME 05/08/14 05/18/14 Discontinued Lorazepam 0.5 IV Every 6 Hours PRN [...] Mg PO BEDTIME 30 Days 05/18/14 Active Hydrocodone/Chlorphen Polis 5 Ml PO TWICE A DAY PRN COUGH 150 Qty 05/18 Active Lansoprazole 1 Cap PO DAILY 30 Qty 05/18/14 Active Social History Query Response Start Date Stop Date Smoking Status Former smoker Hospital Discharge Instructions No hospital discharge instructions. Plan of Care No plan of care. Functional Status Query Response Date Recorded Physical Hygiene Self October 16, 2014 8:41pm Disabilities Visual October 16, 2014 8:41pm Devices Used Cane October 16, 2014 8:41pm Dressing Self October 16, 2014 8:41pm Ambulation Self October 16, 2014 8:41pm Diet Self October 16, 2014 8:41pm Mental Status Alert October 16, 2014 8:41pm Disabilities Visual October 16, 2014 8:41pm Devices Used Cane October 16, 2014 8:41pm Physical Hygiene Self October 16, 2014 8:41pm Dressing Self October 16, 2014 8:41pm Ambulation Self October 16, 2014 8:41pm Diet Self October 16, 2014 8:41pm Allergies, Adverse Reactions, Alerts Allergen Type Severity Reaction Status Last Updated Cefaclor Allergy Unknown Active 10/16/14 Immunizations Name Given Type Hx Influenza Vaccination Y 2013 Historical Hx Pneumococcal Vaccination Y fall 2012 Historical Hx Tetanus, Diptheria, Pertussis Y PAST 10 YRS Historical Hx Influenza Vaccination Y 2014 Historical Hx Tetanus, Diptheria, Pertussis Y PAST 10 YRS Historical Vital Signs Acute Vital Signs Vital Response Date/Time Temperature (Fahrenheit) 96.8 deg F (96.8 - 99.1) Temperature (Calculated Celsius) 36.62692 degrees C (36.0 - 37.3) Pulse Rate (adult) 71 bpm (60 - 100) Respiratory Rate 18 breaths/min (10 - 20) O2 Sat by Pulse Oximetry 95 % (90 - 100) Blood Pressure 178/75 mm Hg Height 5 ft 2 in Weight 197 lb Body Mass Index 36.0 kg/m^2 Results Test Source Date Result Interp. Ref. Range Comments Activated Partial Thromboplast Time March 13, 2011 11:50pm 30.1 SEC N 24- 36 Alanine Aminotransferase (ALT/SGPT) October 16, 2014 7:20pm 18 U/L N 9- 52 Albumin October 16, 2014 7:20pm 3.9 G/DL N 3.5-5.0 Albumin/Globulin Ratio October 16, 2014 7:20pm 1.3 RATIO N 1.1-2.2 Alkaline Phosphatase October 16, 2014 7:20pm 107 U/L N 38-126 Amylase Level October 16, 2014 5:20pm 100 U/L N 30-110 Anion Gap October 16, 2014 7:20pm 4 MEQ/L L 5-15 Anisocytosis May 18, 2014 4:48am 1+ - Aspartate Amino Transf (AST/SGOT) October 16, 2014 7:20pm 25 U/L N 14- 36 B-Type Natriuretic Peptide March 13, 2011 11:50pm 117 PG/ML H 15-100 BUN/Creatinine Ratio October 16, 2014 7:20pm 24 RATIO N 6-26 Band Neutrophils # May 18, 2014 4:48am 0.1 T/MM3 - Band Neutrophils % May 18, 2014 4:48am 1.0 % N 0-6 Basophils # (Auto) March 13, 2011 11:50pm 0.0 T/MM3 N 0-0.2 Basophils (%) (Auto) March 13, 2011 11:50pm 0.5 % N 0-2 Blood Urea Nitrogen October 16, 2014 7:20pm 29.0 MG/DL H 7-17 Calcium Level October 16, 2014 7:20pm 9.7 MG/DL N 8.4-10.2 Calculated Osmolality October 16, 2014 7:20pm 273 MOSM/KG N 261-280 Carbon Dioxide Level October 16, 2014 7:20pm 24 MEQ/L N 22-30 Chloride Level October 16, 2014 7:20pm 111 MEQ/L H 98-107 Conjugated Bilirubin March 13, 2011 11:50pm 0.00 MG/DL N 0.00-0.30 Creatinine October 16, 2014 7:20pm 1.2 MG/DL N 0.7-1.2 D-Dimer April 12, 2011 11:35am 349 NG/ML H 0-230 CALLED TO SANA 1225 CAU READ BACK <224 NG/ML=PRESUMPTIVE NEGATIVE FOR PE OR DVT >224 NG/ML=ADDITIONAL EVALUATION FOR PE OR DVT RECOMMENDED Eosinophils # (Auto) March 13, 2011 11:50pm 0.4 T/MM3 N 0-0.5 Eosinophils (%) (Auto) March 13, 2011 11:50pm 4.9 % H 0-4 Globulin October 16, 2014 7:20pm 2.9 G/DL N 2.4-3.6 Glucose Level October 16, 2014 7:20pm 81 MG/DL N 65-110 Hematocrit May 18, 2014 4:48am 35.9 % L 36-46 Hemoglobin May 18, 2014 4:48am 12.2 GM/DL N 12-16 Hemoglobin A1c May 04, 2014 5:05am 5.3 % L 6-7 <6.0 NON-DIABETIC RANGE6.0-7.0 ADA THERAPEUTIC RANGE >7.0 ACTION SUGGESTED Lipase October 16, 2014 5:20pm 174 U/L N 23-300 Lymphocytes # (Auto) March [...] 13, 2011 11:50pm 8.4 % N 0-9.0 Neutrophils # (Auto) March 13, 2011 11:50pm 3.0 T/MM3 N 1.8-7.7 Neutrophils # (Manual) May 18, 2014 4:48am 8.2 T/MM3 H 1.8-7.7 Neutrophils % (Manual) May 18, 2014 4:48am 91.0 % H 33-66 Neutrophils (%) (Auto) March 13, 2011 11:50pm 38.8 % N 33-66 Platelet Count May 18, 2014 4:48am 93 T/MM3 L 130-400 Potassium Level October 16, 2014 9:50pm 5.3 MEQ/L H 3.6-5 Prealbumin May 01, 2014 4:00am 27.1 MG/DL N 17.6-36.0 COMMENT sampson Prothromb Time International Ratio March 13, 2011 11:50pm 1.01 N 0.86- 1.10 THERAPUTIC RANGE=2.00-3.00 FOR ANTI-THROMBOSIS THERAPUTIC RANGE=2.50- 3.50 FOR IMPLANTED VALVE RDW Standard Deviation May 18, 2014 4:48am 45.1 FL N 36.9-50.2 Red Blood Count May 18, 2014 4:48am 4.05 M/MM3 N 4.00-5.20 Sodium Level October 16, 2014 7:20pm 139 MEQ/L N 134-144 Thyroid Stimulating Hormone (TSH) May 01, 2014 4:00am 1.10 MIU/L N 0.47-4.68 COMMENT sampson Total Bilirubin October 16, 2014 7:20pm 0.30 MG/DL N 0.20-1.30 Total Protein October 16, 2014 7:20pm 6.8 G/DL N 6.3-8.2 Troponin I April 30, 2014 8:30pm < 0.012 ng/ml 0-0.12 Unconjugated Bilirubin March 13, 2011 11:50pm 0.10 MG/DL N 0.00-1.10 Urine Bilirubin May 01, 2014 12:01am Negative [...] Has specimen been collected/obtained? Y Urine Specific [place] May 01, 2014 12:01am 1.010 L - [...] 18, 2014 4:48am 9.0 T/MM3 N 4.5-11.0 Chemistry Specimen Hemolysis October 16, 2014 9:50pm < 15 0-25 0-25: No Hemolysis.26-70: Slight [...] can falsely decrease Phenytoin. Recommend specimen recollection. Urinalysis Comment May 01, 2014 12:01am Microscopic not ind. - Has specimen been collected/obtained? Y Glucometer May 18, 2014 5:06pm 108 mg/dL N 65-110 Lab Scanned Report October 16, 2014 8:34pm LAB TEST FORM REQUEST [id number] - Turbidity October 16, 2014 7:20pm < 20 0-20 Reactive Lymphocytes % April 30, 2014 8:30pm 1.0 % H 0-0 Glomerular Filtration Rate Calc October 16, 2014 7:20pm 44 - Reactive Lymphocytes # April 30, 2014 8:30pm 0.1 T/MM3 H 0-0 Immature Granulocyte # (Auto) March 13, 2011 11:50pm 0.02 T/MM3 N 0.00- 0.03 Immature Granulocyte % (Auto) March 13, 2011 11:50pm 0.3 % N 0.0-0.5 Icterus Index October 16, 2014 7:20pm < 2 0-7 [id number] Natriuretic Peptide June 22, 2014 11:13am 433 PG/ML H 0-175 Rule in cut points: <50 years old=450; 50-75 years old=900; >75 years old=1800; When utilizing ProBNP rule-in cut points, adjustment for impaired renal function is typically not required. Procedures No known history of procedures. Encounters Encounter Location Date/Time Departed Emergency Room [facility] 10/16/14 6:45pm Registered Clinic [facility] 10/16/14 5:29pm Recent Diagnosis
--- OUTSIDE RECORDS SUMMARY | 2016-12-19 10:45 | XMS REPORT | Continuity of Care Document ---
Author Author [facility] Organization [facility] Address Unknown Phone Unavailable Support Name Relationship Address Phone SILVIO JARRETT MD Caregiver [address] [place] [address] [place] [address] Unavailable SILVIO JARRETT MD Caregiver [address] [place] [address] [place] [id number] Unavailable ARTEM GOODMAN DO Caregiver Unknown Unavailable BRITT LEW MD Caregiver [address] [place] [address] [place] [id number] Unavailable MEENU REKHA Next Of Kin [address] [id number] C Insurance Providers Guarantor Valeria Corrigan Address [address] [place], [place] [id number] Email DENIED/NO PT PORTAL Payer Medicare Policy Number [id number] Subscriber's Name Valeria Corrigan Relationship 18 Self Effective Date 04 Payer [employer] Select Plan 65 Policy Number [id number] Subscriber's Name Valeria Corrigan Relationship 18 Self Group Number [id number] Effective Date 90 Advance Directives Directive Response Recorded Date/Time Advanced Directives Type Living Will DPOA for Healthcare 06/12/16 2:35pm Ordered Resuscitation Status Full Code 06/12/16 5:24pm Resuscitation Documents on File Yes 06/12/16 4:19pm DPOA for Healthcare Only Y brennan Paul 06/12/16 4:19pm Living Will Yes 06/12/16 4:19pm Problems Active Problems Medical Problem Onset Date Status Acute respiratory insufficiency Unknown Acute Anxiety Unknown Chronic Atrial fibrillation, currently in sinus rhythm Unknown Acute Bronchitis Unknown Acute COPD exacerbation Unknown Acute COPD exacerbation Unknown Acute COPD exacerbation Unknown Acute Constipation Unknown Acute Elevated serum creatinine Unknown Resolved GERD (gastroesophageal reflux disease) Unknown Chronic Gouty arthritis Unknown Chronic HTN (hypertension) Unknown Chronic Hyperkalemia Unknown Resolved Hypokalemia Unknown Resolved Hyponatremia Unknown Acute Hypoxia Unknown Acute Moderate to severe pulmonary hypertension Unknown Chronic OA (osteoarthritis) Unknown Chronic Obesity (BMI 30-39.9) Unknown Chronic Rash Unknown Acute Serum potassium elevated Unknown Acute Serum potassium elevated Unknown Acute Steroid-induced hyperglycemia Unknown Acute Thrush Unknown Acute Varicella zoster Unknown Acute Medications Current Home Medications Medication Dose Units Route Directions Days Qty Instructions Start Date Acetaminophen (Tylenol Extra Strength) 500 Mg Tablet 1,000 Mg Oral Every 6 Hours as needed for Pain 02/10/15 Albuterol Sulfate 1.25 Mg/3 Ml Vial.neb 1 Vial Aerosol Tx. Every 6 Hours as needed for Prn Orders 06/12/16 Albuterol Sulfate (Ventolin Hfa 90 Mcg/Actuation) 18 Gm Hfa.aer.ad 1 Puff Inhalation Daily as needed for Prn Orders 06/12/16 Amlodipine Besylate 5 Mg Tablet 5 Mg Oral Daily 30 Days 30 Tablet Aspirin 81 Mg Tab.chew 81 Mg Oral Daily 02/09/15 Citalopram Hydrobromide (Citalopram Hbr) 10 Mg Tablet 5 Mg Oral Daily 06/12/16 Furosemide 40 Mg Tablet 40 Mg Oral Daily as needed for Edema 09/14 Gabapentin 100 Mg Capsule 100 Mg Oral Twice A Day as needed for Prn Orders 06/12/16 Gabapentin 600 Mg Tablet 600 Mg Oral Bedtime 02/09/15 Hydrocodone/Acetaminophen ([place] 5-325 Tablet) 1 Each Tablet 1-2 Tab Oral Every 4-6 Hours as needed for Pain 60 Tablet 02/10/15 Lansoprazole (Prevacid) 15 Mg Tab.rap.dr 15 Mg Oral Twice A Day 06/12/16 Meloxicam (Mobic) 15 Mg Tablet 15 Mg Oral Daily as needed for Pain 03/14/11 Potassium Chloride 10 Meq Tablet.er 10 Meq Oral Daily as needed for With Furosemide 02/09/15 Prednisone 20 Mg Tablet 40 Mg Oral Daily 10 Days 20 Tablet 40 mg PO daily X1 day 30 mg PO dailyt X3 days 20 mg PO dailyt X3 days 10 mg PO dailyt X3 days Then discontinue 06/17/16 Past Home Medications Medication Directions Ordered Status Amlodipine Besylate 5 Mg Tablet, 5 Mg Oral Daily 05/08/14 Discontinued Azithromycin 500 Mg Vial, Intraven Daily 05/08/14 Discontinued Budesonide (Pulmicort) 0.5 Mg/2 Ml Inha, 05/08/14 Discontinued Ceftriaxone Na/Dextrose,Iso (Ceftriaxone 1 Gm Piggyback) 1 Gm/50 Ml Froz.piggy , Intraven Daily 05/08/14 Discontinued Clotrimazole 10 Mg Guillermo, 1 Tab Oral 5 Times Daily 05/08/14 Discontinued Gabapentin 100 Mg Capsule, 500 Bedtime 04/30/14 Discontinued Gabapentin 300 Mg Capsule, 300 Tid Prn 04/30/14 Discontinued Guaifenesin 600 Mg Tablet.er, Every 12 Hours 05/08/14 Discontinued Hydrocodone/Acetaminophen (Hydrocodon-Acetaminophen 5-325) 1 Each Tablet, 1 Tab Oral Every 6 Hours as needed for Pain 02/09/15 Discontinued Hydrocodone/Chlorphen Polis (Hydrocodone-Chlorpheniram Susp) 5 Ml Agueda.er.12h, Twice A Day 05/08/14 Discontinued Ibuprofen 200 Mg Tablet, 800 Mg Oral Every 8 Hours as needed for Pain Discontinued Insulin Glargine,Hum.rec.anlog (Lantus) 100 Unit/Ml Inj, 5 Sub-Q Bedtime 05/14 Discontinued Lansoprazole (Prevacid) 15 Mg Capsule.dr, 15 Mg Oral Daily 03/14/11 Discontinued Lorazepam 2 Mg/1 Ml Vial, 0.5 Intraven Every 6 Hours as needed for Prn Orders 05/08/14 Discontinued Meloxicam (Mobic) 15 Mg Tablet, 1 Tab Oral Daily 02/10/15 Discontinued Methylprednisolone Sod Succ 125 Mg Vial, Intraven Every 6 Hours 05/08/14 Discontinued Ondansetron Hcl (Zofran) 4 Mg Tablet, 4 Mg Oral Every 6 Hours for Nausea Discontinued Social History Social History Problem Response Recorded Date/Time Onset Date Status Tobacco abuse 05/01/2014 10:30am Unknown Active Reason for Hospitalization COPD EXASERBATION 06/17/2016 9:39am Not Applicable Not Applicable Hx Substance Use No 06/12/2016 2:47pm Not Applicable Not Applicable Hx Alcohol Use Yes 06/12/2016 2:47pm Not Applicable Not Applicable Has the pt used tobacco in the last 12 months Yes 06/12/2016 4:26pm Not Applicable Not Applicable Tobacco Usage none 05/08/2014 5:50pm Not Applicable Not Applicable Query Response Start Date Stop Date Smoking Status Former smoker Hospital Discharge Instructions Instructions: Care Instructions: I was in the hospital because (patient own words): I had trouble breathing Discharge Diet: regular Discharge Activity: ad rema Follow Up Appointments: with pcp in 1 week Pending Lab / Results: No Pending Lab Wound/Incision Care: na Pain Management/Treatment: as needed, tylenol, meloxicam Expected Signs/Symptoms: cough Notify Physician If: worsening dyspnea During Business Hours:: Please call the physician's office at After Business Hours:: Please call [phone] and have the blow down operator page the physician. Condition at time of discharge: Good Plan of Care Discharge Date 06/17/16 3:15pm Disposition 01 DISCHARGED HOME, SELF-CARE Instructions/Education Provided DI for Chronic Obstructive Pulmonary Disease Prescriptions See Medication Section Care Plan and Goals See Discharge Instructions Section Functional Status Query Response Date Recorded Mobility Status Ambulatory June 17, 2016 9:39am Assistive Devices Cane June 17, 2016 9:39am Activity Limitations Shortness of breath June 17, 2016 9:39am Feeding Ability Independent June 17, 2016 9:39am Toileting Ability Independent June 17, 2016 9:39am Grooming Ability Independent June 17, 2016 9:39am Dressing Ability Independent June 17, 2016 9:39am Driving Ability Assist June 17, 2016 9:39am Housework Ability Independent June 17, 2016 9:39am Meal Preparation Ability Independent June 17, 2016 9:39am Stair Climbing Ability Assist June 17, 2016 9:39am Ability to complete ADL's impeded by No change June 17, 2016 9:39am Cognitive/Perceptual Impairments Impaired vision June 17, 2016 9:39am Visual Assistive Devices Glasses June 15, 2016 4:20pm Preferred Method of Learning Reading June 15, 2016 4:20pm Allergies, Adverse Reactions, Alerts Allergen Type Severity Reaction Status Last Updated Cefaclor Allergy Unknown Active 06/12/16 Immunizations Query Response on File Recorded Date/Time Hx Influenza Vaccination Y fall 201406/12/16 4:26pm Hx Pneumococcal Vaccination Y prevfall06/12/16 4:26pm Hx Tetanus, Diptheria, Pertussis Y PAST 10 YRS 10/16/14 8:41pm Hx Influenza Vaccination Y fall 201406/12/16 4:26pm Hx Tetanus, Diptheria, Pertussis Y PAST 10 YRS 10/16/14 8:41pm Influenza Vaccine Hx Jul 2015 06/14/16 12:00pm Vital Signs Acute Vital Signs Vital Response Date/Time Temperature (Fahrenheit) 96.3 deg F (96.8 - 99.1) 06/17/2016 8:08am Temperature (Calculated Celsius) 35.08193 degrees C (36.0 - 37.3) 06/17/2016 8:08am Pulse Rate (adult) 74 bpm (60 - 100) 06/17/2016 10:59am Respiratory Rate 20 breaths/min (10 - 20) 06/17/2016 10:59am O2 Sat by Pulse Oximetry 89 % (90 - 100) 06/17/2016 3:00pm Oxygen Delivery Method Nasal Cannula 06/17/2016 3:14pm Oxygen Delivery Method Room Air 06/17/2016 8:08am Oxygen Flow Rate 0.50 L/min 06/16/2016 7:39am Blood Pressure 155/65 mm Hg 06/17/2016 8:08am Blood Pressure Source Automatic Cuff 06/17/2016 8:08am Height (Feet) 5 feet 06/16/2016 8:55am Height (Inches) 2.00 inches 06/16/2016 8:55am Weight (Kilograms) 85.700 kg 06/17/2016 8:08am Body Mass Index (BMI) 33.9 06/12/2016 4:18pm Results Laboratory Results Test Name Result Units Flags Reference Collection Date/Time Result Date/ Time Comments NZ-Zdi-D-Type Natriuretic Peptide 271 PG/ML H 0-175 04/28/2016 9:18am 9:56am Rule in cut points: <50 years old=450; 50-75 years old=900; >75 years old=1800; When utilizing ProBNP rule-in cut points, adjustment for impaired renal function is typically not required. White Blood Count 9.4 T/MM3 D 4.5-11.0 06/14/2016 4:23am 06/14/2016 5: 38am Red Blood Count 4.06 M/MM3 4.00-5.20 06/14/2016 4:23am 06/14/2016 5: 38am Hemoglobin 12.3 GM/DL 12-16 06/14/2016 4:06/14/2016 5:38am Hematocrit 37.5 % 36-46 06/14/2016 4:23am 06/14/2016 5:38am Mean Corpuscular Volume 92.4 UM3 80-100 06/14/2016 4:am 06/14/2016 5: 38am Mean Corpuscular Hemoglobin 30.3 UUG 26-34 06/14/2016 4:2015 5:38am Mean Corpuscular Hemoglobin Concent 32.8 GM/DL 31-37 06/14/2016 4:06/14/2016 5:38am RDW Standard Deviation 47.2 FL 36.9-50.2 06/14/2016 4:06/14/2016 5 :38am Platelet Count 224 T/MM3 130-400 06/14/2016 4:06/14/2016 5:38am Mean Platelet Volume 10.6 UM3 9.4-12.4 06/14/2016 4:06/14/2016 5: 38am Neutrophils % (Manual) 90.0 % H 33-66 06/14/2016 4:06/14/2016 6: 05am Band Neutrophils % 1.0 % 0-6 06/14/2016 4:06/14/2016 6:05am Lymphocytes % (Manual) 8.0 % L 23-45 06/14/2016 4:06/14/2016 6: 05am Monocytes % (Manual) 1.0 % 0-9.0 06/14/2016 4:06/14/2016 6:05am Band Neutrophils # 0.1 T/MM3 06/14/2016 4:06/14/2016 6:05am Absolute Neutrophils (Manual) 8.5 T/MM3 H 1.8-7.7 06/14/2016 4: 6:05am Lymphocytes # (Manual) 0.8 T/MM3 L 1-4.8 06/14/2016 4:06/14/2016 6: 05am Monocytes # (Manual) 0.1 T/MM3 0-0.8 06/14/2016 4:06/14/2016 6: 05am Red Cell Morphology Comment NORMAL 06/14/2016 4:06/14/2016 6: 05am Icterus Index < 2 0-7 06/15/2016 4:06/15/2016 5:32am Chemistry Specimen Hemolysis < 15 0-25 06/15/2016 4:06/15/2016 5 :32am 0-25: Specimen Exhibited No Hemolysis. Turbidity < 20 0-20 06/15/2016 4:1806/15/2016 5:32am Sodium Level 141 MEQ/L 134-144 06/15/2016 4:06/15/2016 5:32am Potassium Level 5.0 MEQ/L 3.6-5 06/15/2016 4:06/15/2016 5:32am Chloride Level 103 MEQ/L 98-107 06/15/2016 4:06/15/2016 5:32am Carbon Dioxide Level 29 MEQ/L 22-30 06/15/2016 4:06/15/2016 5: 32am Anion Gap 9 MEQ/L 5-15 06/15/2016 4:06/15/2016 5:32am Blood Urea Nitrogen 30.0 MG/DL H 7-17 06/15/2016 4:06/15/2016 5: 32am Creatinine 0.9 MG/DL 0.7-1.2 06/15/2016 4:06/15/2016 5:32am BUN/Creatinine Ratio 33 RATIO H 6-26 06/15/2016 4:06/15/2016 5: 32am Glomerular Filtration Rate Calc 61 06/15/2016 4:06/15/2016 5: 32am Glucose Level 147 MG/DL H 65-110 06/15/2016 4:06/15/2016 5:32am Calculated Osmolality 280 MOSM/KG 261-280 06/15/2016 4:06/15/2016 5:32am Calcium Level 9.6 MG/DL 8.4-10.2 06/15/2016 4:06/15/2016 5:32am Total Bilirubin 0.30 MG/DL 0.20-1.30 06/15/2016 4:06/15/2016 5: 32am Alkaline Phosphatase 66 U/L 38-126 06/15/2016 4:06/15/2016 5:32am Total Protein 6.1 G/DL L 6.3-8.2 06/15/2016 4:06/15/2016 5:32am Albumin 3.6 G/DL 3.5-5.0 06/15/2016 4:06/15/2016 5:32am Globulin 2.5 G/DL 2.4-3.6 06/15/2016 4:18am 06/15/2016 5:32am Albumin/Globulin Ratio 1.4 RATIO 1.1-2.2 06/15/2016 4:18am 06/15/2016 5 :32am Aspartate Amino Transf (AST/SGOT) 44 U/L H 14-36 06/15/2016 4:18am 06/15 5:32am Alanine Aminotransferase (ALT/SGPT) 36 U/L 9-52 06/15/2016 4:18am 06/15 5:32am Microbiology Results Procedure Source Organism/Result Collection Date/Time Result Date/Time Result Status Blood Culture Peripheral/Iv Start NO GROWTH AFTER 5 DAYS 06/12/2016 3:55pm 06/17/2016 3:58pm Final Name: VALERAI CORRIGAN Unit #: [id number] : 1940 Sex: F DISCHARGE SUMMARY Admit Date: 06/12/16 Report #: [id number] [facility] General Date Date DATE: 06/17/16 TIME: 11:11 Attending Physician Silvio Jarrett MD Admitting Physician Silvio Jarrett MD Consulting Physician Admitting Diagnosis COPD with acute exacerbation, hypoxia, acute respiratiory insufficiency Discharge Diagnosis COPD with acute exacerbation, acute bronchitis Dyspnea on exertion, hypoxia with exertion Hospital Course 06/12 - Admitted to inpatient status for COPD exacerbation. Started Levaquin 500 mg daily. Solu- Medrol 125 mg QID and DuoNeb + budesonide treatments. Placed on oxygen. SCDs. PT /OT consult. 06/13 - Continue with Levaquin, IV steroids given her pulmonary debility. K improved and is back within normal range at 4.7. BUN decreased to 22 and creatinine improved to 1.0. Norvasc started for elevated BP. 06/14 COPD exacerbation improving. Decrease solu-medrol dosing to 62.5 mg QID. Continue Levaquin. Will repeat CXR in am due to abnormal findings of atelectasis vs. infiltrate on initial CXR. Continue with nebs. Wean oxygen as able - she's down to 2.5L today. Start Mycelex for thrush. PT and OT both noted her to be completely independent with ambulation and 6/7 with ADLs. Both services were discontinued but they recommended that nurses ambulate with her 3- 4 x/days to maintain her strength. Blood pressure mildly improved after starting her on Norvasc. Will discuss with attending. Possible discharge in next 1-2 days, though she may need home oxygen. 06/15/16 Until used to make improvements requiring less oxygen. Is currently down to 1 liter. Will continue to wean down as able Continue to encourage use of a cappella and ambulation. Chest x-ray today does show improvement in atelectasis of the right base. Continue Mycelex PO for thrush Continue Levaquin and solu-medrol 40 mg BID for pulmonary inflammation Hopeful for discharge in the next 1-2 days depending on hypoxia. 06/16/16 Currently weaning down off of oxygen. Is on room air during conversation sats 90 -91%. Will have respiratory therapy do an ambulatory saturation monitoring. Overall, patient is feeling better and improving. She still does have some mild inspiratory wheezing on auscultation. Continue Mycelex PO for thrush Continue Levaquin and solu-medrol 40 mg BID for pulmonary inflammation Will reevaluate patient later today and recheck oxygenation. Hopeful for discharge either later today or tomorrow. 06/17/16 Patient remained on room air overnight, was able to go to the [facility] and come back, still a little short of breath after activity, cough is persistent, mainly nonproductive, afebrile, overall feels better, no new complaints, appetite is good, no chest pain or palpitation, fever or chills, nausea or vomiting. Exam is unchanged, lungs are clear to auscultation bilaterally, good air exchange, no wheezing Atraumatic normocephalic, alert and oriented 3, no acute distress, cooperative , normal judgment Abdomen is soft, nondistended, nontender. Heart normal S1 and S2 without murmurs. Skin is warm and dry without rash, neuro grossly intact without focal deficits. Plan is to discharge the patient home with oxygen to be used with exercise 4 L according to her exercise oximetry test. She will be sent on 10 more days of oral redness or tape, she has finished 5 days course of Levaquin for acute bronchitis, repeat chest x-ray showed resolution of right lower lobe atelectasis. She is to follow-up with her physician in one week, discharge condition was stable and improved. One new medication aside from steroids was added which is amlodipine 5 mg daily for blood pressures above 140 persistently in the hospital. This will also need to be followed up with her PCP. Her other medications were unchanged. Problems: (1) COPD exacerbation Status: Acute (2) Acute respiratory insufficiency Status: Acute (3) Hypoxia Status: Acute (4) Hyperkalemia Status: Resolved Assessment & Plan: POA (5) Moderate to severe pulmonary hypertension Status: Chronic (6) HTN (hypertension) Status: Chronic (7) GERD (gastroesophageal reflux disease) Status: Chronic (8) Anxiety Status: Chronic (9) OA (osteoarthritis) Status: Chronic (10) Gouty arthritis Status: Chronic (11) Steroid-induced hyperglycemia Status: Acute (12) Obesity (BMI 30-39.9) Status: Chronic (13) Thrush Status: Acute Assessment & Plan: Mycelex started on 06/14 Code Status Full Code Home Meds Active Scripts Amlodipine Besylate (Amlodipine Besylate) 5 Mg Tablet, 5 MG PO DAILY for 30 Days , #30 TAB Prov:OLIVIA WALLACE MD 06/17/16 Prednisone (Prednisone) 20 Mg Tablet, 40 MG PO DAILY for 10 Days, #20 TAB 40 mg PO daily X1 day 30 mg PO dailyt X3 days 20 mg PO dailyt X3 days 10 mg PO dailyt X3 days Then discontinue Prov:OLIVIA WALLACE MD 06/17/16 Hydrocodone/Acetaminophen ([place] 5-325 Tablet) 1 Each Tablet, 1-2 TAB PO Q4-6H Y for PAIN, #60 TAB Prov:TORY CATES 02/10/15 Reported Medications Citalopram Hydrobromide (Citalopram HBr) 10 Mg Tablet, 5 MG PO DAILY 06/12/16 Lansoprazole (Prevacid) 15 Mg Tab.rap.dr, 15 MG PO BID 06/12/16 Gabapentin (Gabapentin) 100 Mg Capsule, 100 MG PO BID Y for PRN ORDERS 06/12/16 Albuterol Sulfate (Ventolin HFA 90 mcg/actuation) 18 Gm Hfa.aer.ad, 1 PUFF INH DAILY Y for PRN ORDERS 06/12/16 Albuterol Sulfate (Albuterol Sulfate) 1.25 Mg/3 Ml Vial.neb, 1 VIAL AEROSOL Q6H Y for PRN ORDERS 06/12/16 Acetaminophen (Tylenol Extra Strength) 500 Mg Tablet, 1000 MG PO Q6H Y for PAIN 02/10/15 Potassium Chloride (Potassium Chloride) 10 Meq Tablet.er, 10 MEQ PO DAILY Y for WITH FUROSEMIDE 02/09/15 Furosemide (Furosemide) 40 Mg Tablet, 40 MG PO DAILY Y for EDEMA 02/09/15 Gabapentin (Gabapentin) 600 Mg Tablet, 600 MG PO HS 02/09/15 Aspirin (Aspirin) 81 Mg Tab.chew, 81 MG PO DAILY 02/09/15 Meloxicam (Mobic) 15 Mg Tablet, 15 MG PO DAILY Y for PAIN 03/14/11 Discontinued Reported Medications Ibuprofen (Ibuprofen) 200 Mg Tablet, 800 MG PO Q8H Y for PAIN 06/12/16 Discharge Disposition Home OLIVIA WALLACE MD Jun 17, 2016 11:11 Procedures Procedure Status Date Provider(s) ASSAY OF NATRIURETIC PEPTIDE Completed 04/28/16 Encounters Encounter Location Arrival/Admit Date Discharge/Depart Date Attending Provider Discharged Inpatient [facility] 06/12/16 3:33pm 06/17/16 3:15pm SILVIO JARRETT MD Registered Clinic [facility] 04/28/16 9:33am CHAPARRO FRANCIS APRN
--- OUTSIDE RECORDS SUMMARY | 2016-12-19 10:45 | XMS REPORT | Continuity of Care Document ---
Author Author [facility] Organization [facility] Address Unknown Phone Unavailable Allergies Medications Problems Procedures Results Encounters ACCT No. Visit Date/Time Discharge Status Pt. Type Provider Facility Loc./Unit Complaint [id number] 12/25/2013 09:42:00 12/25/2013 23 :59:59 CLS Outpatient [id number] 12/18/2013 10:35:00 12/18/2013 23 :59:59 CLS Outpatient [id number] 12/05/2013 08:26:00 12/05/2013 23 :59:59 CLS Outpatient [id number] 12/02/2013 10:50:00 12/02/2013 23 :59:59 CLS Outpatient [id number] 11/13/2013 09:25:00 11/13/2013 23 :59:59 CLS Outpatient [id number] 10/16/2013 12:00:00 10/16/2013 23 :59:59 CLS Outpatient [id number] 07/22/2013 13:41:00 07/22/2013 23 :59:59 CLS Outpatient
--- OUTSIDE RECORDS SUMMARY | 2016-12-19 10:45 | XMS REPORT | Referral Summary ---
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 Name Role Phone Angelique Santiago Primary Care Physician [phone] Encounter Date(s): 08/14/16 - 08/14/16 [facility], [address] [place] [id number] Discharge Diagnosis: Chronic pain Discharge Diagnosis: Muscle spasm Discharge Diagnosis: Benign hypertension Discharge Diagnosis: COPD (chronic obstructive pulmonary disease) Discharge Disposition: 01-Home or Self Care Attending Physician: Feli Santiago DO Admitting Physician: Feli Santiago DO Vital Signs Most recent to 1 oldest [Reference Range]: Temperature Tympanic 36.9 degC [36.6-38.1 degC] (08/14/16 8:56 AM) Peripheral Pulse 71 bpm Rate [60-100 bpm] (08/14/16 8:56 AM) Respiratory Rate 16 br/min [14-20 br/min] (08/14/16 8:56 AM) Blood Pressure 130/62 mmHg [90-140/60-90 mmHg] (08/14/16 8:56 AM) SpO2 92 % (08/14/16 8:56 AM) Problem List Condition Effective Dates Status [...] # 30 tabs, 11 Refill(s) , Pharmacy: [facility] #[id number], 1 tabs Oral Daily,Instr:for blood pressures above 140 Start Date: 08/14/16 Status: Ordered aspirin 81 mg, Oral, Daily, 0 Refill(s) Start Date: 06/30/14 Status: Ordered Bactroban 2% topical cream 1 donta, Topical, TID, # 30 g, 0 Refill(s), Pharmacy: [facility] #[id number] Start Date: 05/03/16 Status: Ordered Breo Ellipta 100 mcg-25 mcg/inh inhalation powder 1 puffs, Inhalation, Daily, SAMPLE GIVEN, # 30 Each, 0 Refill(s) Start Date: 05/15/16 Status: Ordered citalopram 10 mg oral tablet 10 mg 1 tabs, Oral, Daily, # 30 tabs, 11 Refill(s), Pharmacy: [facility] # [id number], 1 tabs Oral Daily Start Date: 08/14/16 Status: Ordered Colace 100 mg oral capsule 1 caps, Oral, BID, as needed for constipation, # 20 caps, 0 Refill(s) Start Date: 05/20/14 Status: Ordered DuoNeb 0.5 mg-2.5 mg/3 mL inhalation solution 3 mL, Inhalation, QID, # 30 Each, 2 Refill(s), Pharmacy: [facility] # [id number] Start Date: 07/24/16 Status: Ordered gabapentin 100 [...] # 30 tabs, 2 Refill(s), eRx : [facility] #[id number], TAKE 1 TABLET BY MOUTH EVERY DAY [...] 0 Refill(s) Start Date: 11/17/14 Status: Ordered [place] 5 mg-325 mg oral tablet 1-2 tabs, Oral, q4hr, as needed for pain, # 90 tabs, 0 Refill(s) Start Date: 08/14/16 Status: Ordered potassium chloride 10 mEq oral tablet, extended release See Instructions, TAKE 1 TABLET BY MOUTH EVERY DAY, # 30 unknown unit, 2 Refill( s), eRx: [facility] #[id number], TAKE 1 TABLET BY MOUTH EVERY DAY Start Date: 01/12/15 Status: Ordered Prevacid SoluTab 15 mg oral tablet, disintegrating 15 mg 1 tabs, Oral, BID, 0 Refill(s) Start Date: 06/19/16 Status: Ordered ProAir HFA 90 mcg/inh inhalation aerosol See Instructions, INHALE TWO PUFFS BY MOUTH EVERY 4 TO 6 HOURS NEEDED, # 8.5 g, 2 Refill(s), Pharmacy: [facility] #[id number] Start Date: 07/02/15 Status: Ordered Spiriva 18 [...] Visit Note Author: Feli Santiago DO Date: 08/14/16 Assessment/Plan Benign hypertension Continue current regimen, return to clinic in 3 months. Ordered: Office Visit Level 4 Est 81328 Chronic pain New controlled substance agreement signed today,patient should return to clinic in 3 months, continue current regimen. Ordered: Office Visit Level 4 Est 19586 COPD (chronic obstructive pulmonary disease) Advised patient that it was time to contact pulmonology and get in to see them. Continue oxygen, return to clinic with any signs or symptoms of COPD exacerbation. Ordered: Office Visit Level 4 Est 60712 Muscle spasm This is improving with tonic water, continue current plan. Ordered: Office Visit Level 4 Est 84993
--- OUTSIDE RECORDS SUMMARY | 2016-12-19 10:46 | XMS REPORT | Referral Summary ---
Author Author [facility], Family [facility] Organization [facility] Address Unknown Phone Unavailable Care Team Providers Care Manager Club Name Role Phone Angelique Santiago Primary Care Physician [phone] Encounter VC Date(s): 10/31/16 - 10/31/16 [facility], [address] [place] [address] Discharge Diagnosis: Acute bacterial sinusitis Discharge Disposition: 01-Home or Self Care Attending Physician: Feli Santiago DO Admitting Physician: Feli Santiago DO Vital Signs Most recent to 1 oldest [Reference Range]: Temperature Tympanic 37.4 degC [36.6-38.1 degC] (10/31/16 1:12 PM) Peripheral Pulse 69 bpm Rate [60-100 bpm] (10/31/16 1:12 PM) Blood Pressure 136/88 mmHg [90-140/60-90 mmHg] (10/31/16 1:12 PM) SpO2 97 % (10/31/16 1:12 PM) Problem List Condition Effective Dates Status Health [...] # 30 tabs, 11 Refill(s) , Pharmacy: [facility] #[id number], 1 tabs Oral Daily,Instr:for blood pressures above 140 Start Date: 08/14/16 Status: Ordered aspirin 81 mg, Oral, Daily, 0 Refill(s) Start Date: 06/30/14 Status: Ordered Augmentin 875 mg-125 mg oral tablet 1 tabs, Oral, q12hr, X 7 days, # 14 tabs, 0 Refill(s), Pharmacy: [facility] #[id number] Start Date: 10/31/16 Stop Date: 11/07/16 Status: Ordered Breo Ellipta 100 mcg-25 mcg/inh inhalation powder 1 puffs, Inhalation, Daily, SAMPLE GIVEN, # 30 Each, 0 Refill(s) Start Date: 05/15/16 Status: Ordered citalopram 10 mg oral tablet 10 mg 1 tabs, Oral, Daily, # 30 tabs, 11 Refill(s), Pharmacy: [facility] # [id number], 1 tabs Oral Daily Start Date: 08/14/16 Status: Ordered DuoNeb 0.5 mg-2.5 mg/3 mL inhalation solution 3 mL, Inhalation, QID, # 30 Each, 2 Refill(s), Pharmacy: [facility] # [id number] Start Date: 07/24/16 Status: Ordered gabapentin 100 mg oral capsule 100 mg 1 caps, Oral, BID, as needed for pain, 0 Refill(s) Start Date: 06/19/16 Status: Ordered gabapentin 600 mg oral tablet See Instructions, TAKE ONE TABLET BY MOUTH AT BEDTIME, # 90 tabs, eRx: [facility] #[id number], TAKE ONE TABLET BY MOUTH AT BEDTIME Start Date: 09/20/16 Status: Ordered gabapentin 600 mg oral tablet 600 mg 1 tabs, Oral, Bedtime (once a day), 0 Refill(s) Start Date: 06/19/16 Status: Ordered Lasix 40 mg oral tablet See Instructions, TAKE 1 TABLET BY MOUTH EVERY DAY, # 30 tabs, 2 Refill(s), eRx : [facility] #[id number], TAKE 1 TABLET BY MOUTH EVERY DAY [...] 0 Refill(s) Start Date: 11/17/14 Status: Ordered [place] 5 mg-325 mg oral tablet 1-2 tabs, Oral, q4hr, as needed for pain, # 90 tabs, 0 Refill(s) Start Date: 08/14/16 Status: Ordered potassium chloride 10 mEq oral tablet, extended release See Instructions, TAKE 1 TABLET BY MOUTH EVERY DAY, # 30 unknown unit, 2 Refill( s), eRx: [facility] #[id number], TAKE 1 TABLET BY MOUTH EVERY DAY Start Date: 01/12/15 Status: Ordered ProAir HFA 90 mcg/inh inhalation aerosol See Instructions, INHALE TWO PUFFS BY MOUTH EVERY 4 TO 6 HOURS NEEDED, # 8.5 g, 2 Refill(s), Pharmacy: [facility] #[id number] Start Date: 07/02/15 Status: Ordered Promethazine DM 6.25 mg-15 mg/5 mL oral syrup 5 mL, Oral, q6hr, as needed for cough, # 120 mL, 0 Refill(s), Pharmacy: [facility] #[id number] Start Date: 09/14/16 Status: Ordered Results No [...] Visit Note Author: Feli Santiago DO Date: 10/31/16 Assessment/Plan Acute bacterial sinusitis Augmentin, try Flonase and/or nasal saline, otherwise continue supportive care, keep appointment in 2 weeks for regular med check, return to clinic sooner if needed. Ordered: Office Visit Level 3 Est 35208
--- OUTSIDE RECORDS SUMMARY | 2016-12-19 10:46 | XMS REPORT | Referral Summary ---
Author Author [facility], [facility]monary Organization [facility], [facility] Address Unknown Phone Unavailable Care Team Providers Care Educator Senior Clinical Name Role Phone Angelique Santiago Primary Care Physician [phone] Encounter Date(s): 10/10/16 - 10/10/16 [facility] [address] [place], [place] [address] Discharge Diagnosis: Abnormal CT scan, chest Discharge Diagnosis: Focal atelectasis Discharge Disposition: 01-Home or Self Care Attending Physician: Xander Ford MD Admitting Physician: Xander Ford MD Vital Signs Most recent to 1 oldest [Reference Range]: Peripheral Pulse 66 bpm Rate [60-100 bpm] (10/10/16 9:15 AM) Respiratory Rate 18 br/min [14-20 br/min] (10/10/16 9:15 AM) Blood Pressure 150/82 mmHg [90-140/60-90 mmHg] *[place]* (10/10/16 9:15 AM) SpO2 91 % (10/10/16 9:15 AM) Problem List Condition Effective Dates Status [...] # 30 tabs, 11 Refill(s) , Pharmacy: [facility] #[id number], 1 tabs Oral Daily,Instr:for blood pressures above [...] Daily, # 30 tabs, 11 Refill(s), Pharmacy: [facility] # [id number], 1 tabs Oral Daily Start Date: 08/14/16 Status: Ordered DuoNeb 0.5 mg-2.5 mg/3 mL inhalation solution 3 mL, Inhalation, QID, # 30 Each, 2 Refill(s), Pharmacy: [facility] # [id number] Start Date: 07/24/16 Status: Ordered gabapentin 100 mg oral capsule 100 mg 1 caps, Oral, BID, as needed for pain, 0 Refill(s) Start Date: 06/19/16 Status: Ordered gabapentin 600 mg oral tablet See Instructions, TAKE ONE TABLET BY MOUTH AT BEDTIME, # 90 tabs, eRx: [facility] #[id number], TAKE ONE TABLET BY MOUTH AT BEDTIME Start Date: 09/20/16 Status: Ordered gabapentin 600 mg oral tablet 600 mg 1 tabs, Oral, Bedtime (once a day), 0 Refill(s) Start Date: 06/19/16 Status: Ordered Lasix 40 mg oral tablet See Instructions, TAKE 1 TABLET BY MOUTH EVERY DAY, # 30 tabs, 2 Refill(s), eRx : [facility] #[id number], TAKE 1 TABLET BY MOUTH EVERY DAY [...] 0 Refill(s) Start Date: 11/17/14 Status: Ordered [place] 5 mg-325 mg oral tablet 1-2 tabs, Oral, q4hr, as needed for pain, # 90 tabs, 0 Refill(s) Start Date: 08/14/16 Status: Ordered potassium chloride 10 mEq oral tablet, extended release See Instructions, TAKE 1 TABLET BY MOUTH EVERY DAY, # 30 unknown unit, 2 Refill( s), eRx: [facility] #[id number], TAKE 1 TABLET BY MOUTH EVERY DAY Start Date: 01/12/15 Status: Ordered ProAir HFA 90 mcg/inh inhalation aerosol See Instructions, INHALE TWO PUFFS BY MOUTH EVERY 4 TO 6 HOURS NEEDED, # 8.5 g, 2 Refill(s), Pharmacy: [facility] #[id number] Start Date: 07/02/15 Status: Ordered Promethazine DM 6.25 mg-15 mg/5 mL oral syrup 5 mL, Oral, q6hr, as needed for cough, # 120 mL, 0 Refill(s), Pharmacy: [facility] #[id number] Start Date: 09/14/16 Status: Ordered Spiriva 18 mcg, Inhalation, Daily, 0 Refill(s), Samples: 1 Start Date: 06/22/16 Status: Ordered Results No data available for [...] Extracted from: Title: Office Visit Note Author: Xander Ford MD Date: 10/10/16 Assessment/Plan 1.Abnormal CT scan, chest 1. Reassurance about the pulmonary nodules. These appear smaller to resolved than on previous. 2. Have discussed the causes of atelectasis with the patient. Because of the findings of atelectasis the right middle lobe which I think her acute although asymptomatic would repeat her CT scan in 6 months. She agrees this is reasonable. 2.Focal atelectasis 1. Please see above. We'll see her back in [address] scan without contrast. She's come back if she has worsening symptoms. She's currently asymptomatic.
--- OUTSIDE RECORDS SUMMARY | 2016-12-19 10:46 | XMS REPORT | Referral Summary ---
Author Author [facility], Family [facility] Organization [facility] Address Unknown Phone Unavailable Care Team Providers Care Public Health Professor Name Role Phone Angelique Santiago Primary Care Physician [phone] Encounter Date(s): 07/24/16 - 07/24/16 [facility] Newton, [address] [place] [address] Discharge Diagnosis: Muscle cramps Discharge Diagnosis: Benign hypertension Discharge Disposition: 01-Home or Self Care Attending Physician: Feli Santiago DO Admitting Physician: Feli Santiago DO Vital Signs Most recent to 1 oldest [Reference Range]: Temperature Tympanic 36.7 degC [36.6-38.1 degC] (07/24/16 8:38 AM) Peripheral Pulse 71 bpm Rate [60-100 bpm] (07/24/16 8:38 AM) Respiratory Rate 16 br/min [14-20 br/min] (07/24/16 8:38 AM) Blood Pressure 140/60 mmHg [90-140/60-90 mmHg] (07/24/16 8:38 AM) SpO2 95 % (07/24/16 8:38 AM) Problem List Condition Effective Dates Status [...] # 30 tabs, 0 Refill(s) , Pharmacy: [facility] #[id number], 1 tabs Oral Daily,Instr:for blood pressures above 140 Start Date: 06/22/16 Status: Ordered aspirin 81 mg, Oral, Daily, 0 Refill(s) Start Date: 06/30/14 Status: Ordered Bactroban 2% topical cream 1 donta, Topical, TID, # 30 g, 0 Refill(s), Pharmacy: [facility] #[id number] Start Date: 05/03/16 Status: Ordered Breo Ellipta 100 mcg-25 mcg/inh inhalation powder 1 puffs, Inhalation, Daily, SAMPLE GIVEN, # 30 Each, 0 Refill(s) Start Date: 05/15/16 Status: Ordered citalopram 10 mg oral tablet 10 mg 1 tabs, Oral, Daily, # 30 tabs, 1 Refill(s), Pharmacy: [facility] # [id number], 1 tabs Oral Daily Start Date: 05/15/16 Status: Ordered Colace 100 mg oral capsule 1 caps, Oral, BID, as needed for constipation, # 20 caps, 0 Refill(s) Start Date: 05/20/14 Status: Ordered DuoNeb 0.5 mg-2.5 mg/3 mL inhalation solution 3 mL, Inhalation, QID, # 30 Each, 2 Refill(s), Pharmacy: [facility] # [id number] Start Date: 07/24/16 Status: Ordered gabapentin 100 [...] # 30 tabs, 2 Refill(s), eRx : [facility] #[id number], TAKE 1 TABLET BY MOUTH EVERY DAY Start Date: 01/12/15 Status: Ordered Mucinex DM 30 mg-600 mg oral tablet, extended release 1 tabs, Oral, q12hr, as needed., 0 Refill(s) Start Date: 05/20/14 Status: Ordered multivitamin Daily, 0 Refill(s) Start Date: 11/17/14 Status: Ordered [place] 5 mg-325 mg oral tablet 1-2 tabs, Oral, q4hr, as needed for pain, # 90 tabs, 0 Refill(s) Start Date: 05/15/16 Status: Ordered potassium chloride 10 mEq oral tablet, extended release See Instructions, TAKE 1 TABLET BY MOUTH EVERY DAY, # 30 unknown unit, 2 Refill( s), eRx: [facility] #[id number], TAKE 1 TABLET BY MOUTH EVERY DAY Start Date: 01/12/15 Status: Ordered Prevacid SoluTab 15 mg oral tablet, disintegrating 15 mg 1 tabs, Oral, BID, 0 Refill(s) Start Date: 06/19/16 Status: Ordered ProAir HFA 90 mcg/inh inhalation aerosol See Instructions, INHALE TWO PUFFS BY MOUTH EVERY 4 TO 6 HOURS NEEDED, # 8.5 g, 2 Refill(s), Pharmacy: [facility] #[id number] Start Date: 07/02/15 Status: Ordered Spiriva 18 [...] Visit Note Author: Feli Santiago DO Date: 07/24/16 Assessment/Plan Benign hypertension Advised patient to take her blood pressure every day for the next couple of weeks so that we can decide whether she needs to use the amlodipine or not. As have an appointmentin about 3 weeks already for her chronic disease follow-up. Ordered: Office Visit Level 4 Est 31417 Chronic obstructive pulmonary disease (COPD) Continue with the Brio samples , continue with oxygenwith activity during the day and all night long. Ordered: ipratropium-albuterol, 3 mL, Inhalation, QID, # 30 Each, 2 Refill(s), Pharmacy : [facility] #[id number] Office Visit Level 4 Est 81924 Muscle cramps Patient will try tonic water and if this is not effective we will do lab work at her chronic disease visit in a few weeks. Ordered: Office Visit Level 4 Est 91795
--- OUTSIDE RECORDS SUMMARY | 2016-12-19 10:47 | XMS REPORT | Referral Summary ---
Author Author [facility], Family [facility] Organization [facility] Address Unknown Phone Unavailable Care Team Providers Care Supervisor Costuming Name Role Phone Angelique Santiago Primary Care Physician [phone] Encounter VC Date(s): 11/20/16 - 11/20/16 [facility], [address] [place] [address] Discharge Diagnosis: COPD with acute exacerbation Discharge Disposition: 01-Home or Self Care Attending Physician: Feli Santiago DO Admitting Physician: Feli Santiago DO Vital Signs Most recent to 1 oldest [Reference Range]: Temperature Tympanic 37.1 degC [36.6-38.1 degC] (11/20/16 10:48 AM) Peripheral Pulse 73 bpm Rate [60-100 bpm] (11/20/16 10:48 AM) Respiratory Rate 20 br/min [14-20 br/min] (11/20/16 10:48 AM) Blood Pressure 130/58 mmHg [90-140/60-90 mmHg] (11/20/16 10:48 AM) SpO2 92 % (11/20/16 10:48 AM) Problem List Condition Effective Dates Status [...] Severity Status cefaclor MUSCLES RELAX Active Medications allopurinol 100 mg oral tablet 100 mg 1 tabs, Oral, Daily, # 90 tabs, 0 Refill(s), Pharmacy: [facility] # [id number], 1 tabs Oral Daily Start Date: 11/17/16 Status: Ordered amLODIPine 5 mg oral tablet 5 mg 1 tabs, Oral, Daily, for blood pressures above 140, # 30 tabs, 11 Refill(s) , Pharmacy: [facility] #[id number], 1 tabs Oral Daily,Instr:for blood pressures above 140 Start Date: 08/14/16 Status: Ordered aspirin 81 mg, Oral, Daily, 0 Refill(s) Start Date: 06/30/14 Status: Ordered Augmentin 875 mg-125 mg oral tablet 1 tabs, Oral, q12hr, X 10 days, # 20 tabs, 0 Refill(s), Pharmacy: [facility] #[id number] Start Date: 11/20/16 Stop Date: 11/30/16 Status: Ordered Breo Ellipta 100 mcg-25 mcg/inh inhalation powder 1 puffs, Inhalation, Daily, SAMPLE GIVEN, # 30 Each, 0 Refill(s) Start Date: 05/15/16 Status: Ordered citalopram 10 mg oral tablet 10 mg 1 tabs, Oral, Daily, # 30 tabs, 11 Refill(s), Pharmacy: [facility] # [id number], 1 tabs Oral Daily Start Date: 08/14/16 Status: Ordered DuoNeb 0.5 mg-2.5 mg/3 mL inhalation solution 3 mL, Inhalation, QID, # 30 Each, 2 Refill(s), Pharmacy: [facility] # [id number] Start Date: 07/24/16 Status: Ordered gabapentin 100 mg oral capsule 100 mg 1 caps, Oral, BID, as needed for pain, 0 Refill(s) Start Date: 06/19/16 Status: Ordered gabapentin 600 mg oral tablet See Instructions, TAKE ONE TABLET BY MOUTH AT BEDTIME, # 90 tabs, eRx: [facility] #[id number], TAKE ONE TABLET BY MOUTH AT BEDTIME Start Date: 09/20/16 Status: Ordered gabapentin 600 mg oral tablet 600 mg 1 tabs, Oral, Bedtime (once a day), 0 Refill(s) Start Date: 06/19/16 Status: Ordered Lasix 40 mg oral tablet See Instructions, TAKE 1 TABLET BY MOUTH EVERY DAY, # 30 tabs, 2 Refill(s), eRx : [facility] #[id number], TAKE 1 TABLET BY MOUTH EVERY DAY [...] 0 Refill(s) Start Date: 11/17/14 Status: Ordered [place] 5 mg-325 mg oral tablet 1-2 tabs, Oral, q4hr, as needed for pain, # 90 tabs, 0 Refill(s) Start Date: 11/14/16 Status: Ordered potassium chloride 10 mEq oral tablet, extended release See Instructions, TAKE 1 TABLET BY MOUTH EVERY DAY, # 30 unknown unit, 2 Refill( s), eRx: [facility] #[id number], TAKE 1 TABLET BY MOUTH EVERY DAY Start Date: 01/12/15 Status: Ordered predniSONE 20 mg oral tablet See Instructions, 80mg X 4 days 60mg X 4 days 40mg X 4 days 20mg X 4 days 10mg X 4 days, # 45 tabs, 0 Refill(s), Pharmacy: [facility] #[id number], 80mg X 4 days; 60mg X 4 days; 40mg X 4 days; 20mg X 4 days; 10mg X 4 days Start Date: 11/20/16 Status: Ordered PriLOSEC 20 mg oral delayed release capsule 20 mg 1 caps, Oral, BID, # 180 caps, 0 Refill(s), Pharmacy: [facility] # [id number], 1 caps Oral BID Start Date: 11/14/16 Status: Ordered ProAir HFA 90 mcg/inh inhalation aerosol See Instructions, INHALE TWO PUFFS BY MOUTH EVERY 4 TO 6 HOURS NEEDED, # 8.5 g, 2 Refill(s), Pharmacy: [facility] #[id number] Start Date: 07/02/15 Status: Ordered Promethazine DM 6.25 mg-15 mg/5 mL oral syrup 5 mL, Oral, q6hr, as needed for cough, # 120 mL, 0 Refill(s), Pharmacy: [facility] #[id number] Start Date: 09/14/16 Status: Ordered Results No [...] 1990 Assessment and Plan Extracted from: Title: ACUTE COPD exac Author: Feli Santiago DO Date: 11/20/16 Assessment/Plan COPD with acute exacerbation Chest x-ray was negative for pneumonia,this is likely COPD exacerbation, will give patient Augmentin as well as a slow prednisone taper. Patient should continue oxygen and return to clinic or emergency department with any significant change in symptoms or respiratory distress. Ordered: Office Visit Level 4 Est 42049 Cough Ordered: amoxicillin-clavulanate, 1 tabs, Oral, q12hr, X 10 days, # 20 tabs, 0 Refill (s), Pharmacy: [facility] #[id number] predniSONE, See Instructions, 80mg X 4 days 60mg X 4 days 40mg X 4 days 20mg X 4 days 10mg X 4 days, # 45 tabs, 0 Refill(s), Pharmacy: [facility] # [id number], 80mg X 4 days; 60mg X 4 days; 40mg X 4 days; 20mg X 4 days; 10mg X 4 days XR Chest 2 Views
--- OUTSIDE RECORDS SUMMARY | 2016-12-19 10:47 | XMS REPORT | Referral Summary ---
Author Author [facility], [facility] Organization [facility] Address Unknown Phone Unavailable Care Team Providers Care Certified Rehabilitation Counselor Name Role Phone Angelique Santiago Primary Care Physician [phone] Encounter VC Date(s): 08/21/16 - 08/21/16 [facility], [address] [place] [address] Discharge Diagnosis: COPD with acute exacerbation Discharge Disposition: 01-Home or Self Care Attending Physician: Feli Santiago DO Admitting Physician: Feli Santiago DO Vital Signs Most recent to 1 oldest [Reference Range]: Temperature Tympanic 36.7 degC [36.6-38.1 degC] (08/21/16 2:41 PM) Peripheral Pulse 89 bpm Rate [60-100 bpm] (08/21/16 2:41 PM) Respiratory Rate 28 br/min [14-20 br/min] *[place]* (08/21/16 2:41 PM) Blood Pressure 138/66 mmHg [90-140/60-90 mmHg] (08/21/16 2:41 PM) SpO2 76 % (08/21/16 2:41 PM) Problem List Condition Effective Dates Status [...] # 30 tabs, 11 Refill(s) , Pharmacy: [facility] #[id number], 1 tabs Oral Daily,Instr:for blood pressures above 140 Start Date: 08/14/16 Status: Ordered aspirin 81 mg, Oral, Daily, 0 Refill(s) Start Date: 06/30/14 Status: Ordered Bactroban 2% topical cream 1 donta, Topical, TID, # 30 g, 0 Refill(s), Pharmacy: [facility] #[id number] Start Date: 05/03/16 Status: Ordered Breo Ellipta 100 mcg-25 mcg/inh inhalation powder 1 puffs, Inhalation, Daily, SAMPLE GIVEN, # 30 Each, 0 Refill(s) Start Date: 05/15/16 Status: Ordered citalopram 10 mg oral tablet 10 mg 1 tabs, Oral, Daily, # 30 tabs, 11 Refill(s), Pharmacy: [facility] # [id number], 1 tabs Oral Daily Start Date: 08/14/16 Status: Ordered Colace 100 mg oral capsule 1 caps, Oral, BID, as needed for constipation, # 20 caps, 0 Refill(s) Start Date: 05/20/14 Status: Ordered doxycycline hyclate 100 mg oral tablet 100 mg 1 tabs, Oral, Daily, X 10 days, # 10 tabs, 0 Refill(s), Pharmacy: [facility] #[id number], 1 tabs Oral Daily,x10 days Start Date: 08/21/16 Stop Date: 08/31/16 Status: Ordered DuoNeb 0.5 mg-2.5 mg/3 mL inhalation solution 3 mL, Inhalation, QID, # 30 Each, 2 Refill(s), Pharmacy: [facility] # [id number] Start Date: 07/24/16 Status: Ordered gabapentin 100 [...] # 30 tabs, 2 Refill(s), eRx : [facility] #[id number], TAKE 1 TABLET BY MOUTH EVERY DAY [...] 0 Refill(s) Start Date: 11/17/14 Status: Ordered [place] 5 mg-325 mg oral tablet 1-2 tabs, Oral, q4hr, as needed for pain, # 90 tabs, 0 Refill(s) Start Date: 08/14/16 Status: Ordered potassium chloride 10 mEq oral tablet, extended release See Instructions, TAKE 1 TABLET BY MOUTH EVERY DAY, # 30 unknown unit, 2 Refill( s), eRx: [facility] #[id number], TAKE 1 TABLET BY MOUTH EVERY DAY Start Date: 01/12/15 Status: Ordered predniSONE 20 mg oral tablet See Instructions, 3 tablets daily for 3 days, 2 tables daily for 3 days, 1 tablet daily for 3 days, 1/2 tablet daily for 3 days. with food., # 20 tabs, 0 Refill(s), Pharmacy: [facility] #[id number], 3 tablets daily for 3 days, 2 tables daily for 3 d... Start Date: 08/21/16 Status: Ordered Prevacid SoluTab 15 mg oral tablet, disintegrating 15 mg 1 tabs, Oral, BID, 0 Refill(s) Start Date: 06/19/16 Status: Ordered ProAir HFA 90 mcg/inh inhalation aerosol See Instructions, INHALE TWO PUFFS BY MOUTH EVERY 4 TO 6 HOURS NEEDED, # 8.5 g, 2 Refill(s), Pharmacy: [facility] #[id number] Start Date: 07/02/15 Status: Ordered Spiriva 18 [...] Assessment and Plan Extracted from: Title: ACUTE copd exac Author: Feli Santiago DO Date: 08/21/16 Assessment/Plan COPD with acute exacerbation Patient has her oxygen out in the car and will go immediately and place this on. She'll continue to do breathing treatments regularly. Steroids and doxycycline were prescribed today. Patient should return to clinic if not improving orpresent to emergency department with worsening respiratory distress. Ordered: Office Visit Level 4 Est 24218
--- NOTE | 2016-12-19 11:08 | NUR ---
PHYSICIAN VISIT DR. MAGAÑA IN TO SEE PATIENT.
--- OUTSIDE RECORDS SUMMARY | 2016-12-19 11:13 | XMS REPORT | Continuity of Care Document ---
Author Author [facility] Organization [facility] Address Unknown Phone Unavailable Support Name Relationship Address Phone ALIREZA MOBLEY MD Caregiver [address] [place] [address] [place] [address] JALYN DONOVAN MD Caregiver [address] [place] [address] [place] [address] [phone] RAMIRO SHARPE Next Of Kin [address] [place] [address] Insurance Providers Payer Name Policy Number Subscriber Name Relationship Medicare [id number] Valeria Corrigan 17 Self [facility] [id number] Valeria Corrigan 17 Self Advance Directives Directive [...] 1 Qty 05/18/14 Active Sodium Chloride 2 [place] EA NOSTRIL FOUR TIMES DAILY 30 Days [...] questions about your care or wound, Call [facility] at [phone] and have the auxiliary equipment operator page Dr. Schneider. Condition at time [...] of your legs. 3.During office hours, call [phone] 4. After hours, please call [facility] at [phone], and have the auxiliary equipment operator page your Surgeon IN THE EVENT [...] F (96.8 - 99.1) Temperature (Calculated Celsius) 35.21464 degrees C (36.0 - 37.3) Temperature Source [...] 02, 2013 1:53pm LAB TEST FORM REQUEST [id number] - Lipase March 13, 2011 11:50pm 112 [...] 13, 2011 11:50pm 8.4 % N 0-9.0 EX-Dzv-I-Type Natriuretic Peptide April 30, 2014 8:30pm 441 [...] Has specimen been collected/obtained? Y Urine Specific [place] May 01, 2014 12:01am 1.010 L - [...] N 4.5-11.0 Name: VALERIA CORRIGAN Unit #: [id number] : 1940 Sex: F Loc / Svc: MED DOS: Signed Report #: [id number] DIAGNOSTIC IMAGING REPORT TYPE OF EXAM: CHEST [...] procedures. Encounters Encounter Location Date/Time Discharged Inpatient [facility] 05/07/14 5:25pm Discharged Inpatient [facility] 04/30/14 10:28pm Recent Diagnosis COPD exacerbation Hyponatremia Hypokalemia Atrial fibrillation, currently in sinus rhythm Constipation
--- OUTSIDE RECORDS SUMMARY | 2016-12-19 11:14 | XMS REPORT | Continuity of Care Document ---
Author Author [facility] Organization [facility] Address Unknown Phone Unavailable Allergies Medications Problems Procedures Results Encounters ACCT No. Visit Date/Time Discharge Status Pt. Type Provider Facility Loc./Unit Complaint [id number] 12/25/2013 09:42:00 12/25/2013 23 :59:59 CLS Outpatient [id number] 12/18/2013 10:35:00 12/18/2013 23 :59:59 CLS Outpatient [id number] 12/05/2013 08:26:00 12/05/2013 23 :59:59 CLS Outpatient [id number] 12/02/2013 10:50:00 12/02/2013 23 :59:59 CLS Outpatient [id number] 11/13/2013 09:25:00 11/13/2013 23 :59:59 CLS Outpatient [id number] 10/16/2013 12:00:00 10/16/2013 23 :59:59 CLS Outpatient [id number] 07/22/2013 13:41:00 07/22/2013 23 :59:59 CLS Outpatient
--- OUTSIDE RECORDS SUMMARY | 2016-12-19 11:14 | XMS REPORT | Continuity of Care Document ---
Author Author [facility] Organization [facility] Address Unknown Phone Unavailable Support Name Relationship Address Phone ARCHANATAISHA LICEA Caregiver [facility] [address] [place], [place] [id number] JALYN TIDWELL MD Caregiver [address] [place], [place] [phone] RAMIRO SHARPE Next Of Kin [address] [place], [place] [id number] Insurance Providers Payer Name Policy Number Subscriber Name Relationship Medicare [id number] Valeria Crorigan 17 Self Blue Cross Select Plan 65 [id number] Valeria Corrigan 17 Self Advance Directives Directive [...] F (96.8 - 99.1) Temperature (Calculated Celsius) 36.59833 degrees C (36.0 - 37.3) Pulse Rate [...] Has specimen been collected/obtained? Y Urine Specific [place] May 01, 2014 12:01am 1.010 L - [...] 16, 2014 8:34pm LAB TEST FORM REQUEST [id number] - Turbidity October 16, 2014 7:20pm < [...] October 16, 2014 7:20pm < 2 0-7 ED-Kbo-R-Type Natriuretic Peptide June 22, 2014 11:13am 433 PG/ML H 0-175 Rule in cut points: <50 years old=450; 50-75 years old=900; >75 years old=1800; When utilizing ProBNP rule-in cut points, adjustment for impaired renal function is typically not required. Procedures No known history of procedures. Encounters Encounter Location Date/Time Departed Emergency Room [facility] 10/16/14 6:45pm Registered Clinic [facility] 10/16/14 5:29pm Recent Diagnosis
--- OUTSIDE RECORDS SUMMARY | 2016-12-19 11:14 | XMS REPORT | Continuity of Care Document ---
Author Author [facility] Organization [facility] Address Unknown Phone Unavailable Support Name Relationship Address Phone SERENITYEKATERINA CALLEJAS Caregiver [address] [place] [address] [address] [place] [address] NEENA SIMS MD Caregiver [address] [place] [address] JALYN TIDWELL MD Caregiver [address] [place] [phone] RAMIRO SHARPE Next Of Kin [address] [place] [address] Insurance Providers Payer Name Policy Number Subscriber Name Relationship Medicare [id number] Valeria Corrigan 17 Self [facility] [id number] Valeria Corrigan 17 Self Advance Directives Directive [...] as needed -Duoneb 3ml aerosol as needed -[place] 5/325 1-2 tablets every 5 hours as [...] F (96.8 - 99.1) Temperature (Calculated Celsius) 36.51911 degrees C (36.0 - 37.3) Temperature Source [...] 02, 2013 1:53pm LAB TEST FORM REQUEST [id number] - Lipase March 13, 2011 11:50pm 112 [...] 13, 2011 11:50pm 8.4 % N 0-9.0 AI-Pnk-J-Type Natriuretic Peptide April 30, 2014 8:30pm 441 [...] Has specimen been collected/obtained? Y Urine Specific [place] May 01, 2014 12:01am 1.010 L - [...] N 4.5-11.0 Name: VALERIA CORRIGAN Unit #: [id number] : 1940 Sex: F Loc / Svc: MED DOS: 04/30/14 Signed Report #: [id number] DIAGNOSTIC IMAGING REPORT TYPE OF EXAM: CHEST [...] procedures. Encounters Encounter Location Date/Time Discharged Inpatient [facility] 04/30/14 10:28pm Recent Diagnosis COPD exacerbation COPD exacerbation Hypoxia COPD exacerbation Acute respiratory insufficiency HTN (hypertension) Obesity (BMI 30-39.9) Steroid-induced hyperglycemia Hyponatremia Elevated serum creatinine
[2016-12-19] MEDS ORDERED: ALBUTEROL/IPRATROPIUM INHAL. 2.5mg-0.5mg/3ml Neb. AEROSOL ONE (11:15)
[2016-12-19 11:16] LABS: BASOPHILS % (AUTO) 0.2 % (0-2); EOSINOPHILS % (AUTO) 0.3 % (0-4); HCT - HEMATOCRIT 40.9 % (36-46); IMMATURE GRANULOCYTE # (AUTO) 0.16 T/MM3 (0.00-0.03); IMMATURE GRANULOCYTE % (AUTO) 1.4 % (0.0-0.5); LYMPHOCYTES # (AUTO) 1.5 T/MM3 (1-4.8); LYMPHOCYTES % (AUTO) 13.3 % (23-45); MEAN CORPUSCULAR HGB 29.4 UUG (26-34); MEAN CORPUSCULAR HGB CONC(MCHC 31.8 GM/DL (31-37); MEAN CORPUSCULAR VOLUME 92.5 UM3 (80-100); MEAN PLATELET VOLUME 10.2 UM3 (9.4-12.4); MONOCYTES # (AUTO) 0.5 T/MM3 (0-0.8); MONOCYTES % (AUTO) 4.1 % (0-9.0); NEUTROPHILS #(AUTO)-ABSOLUTE 9.3 T/MM3 (1.8-7.7); NEUTROPHILS % (AUTO) 80.7 % (33-66); RED BLOOD COUNT 4.42 M/MM3 (4.00-5.20); WBC - WHITE BLOOD COUNT 11.5 T/MM3 (4.5-11.0)
[2016-12-19] MEDS ORDERED: ALLO100T PEG (11:17)
[2016-12-19 11:21] LABS: ANION GAP 9 MEQ/L (5-15); BUN/CREATININE RATIO 29 RATIO (6-26); CALCIUM 10.2 MG/DL (8.4-10.2); CHLORIDE 104 MEQ/L (98-107); CO2 - CARBON DIOXIDE 32 MEQ/L (22-30); CREATININE 0.9 MG/DL (0.7-1.2); GLOMERULAR FILTRATION RATE 61; GLUCOSE 94 MG/DL (65-110); POTASSIUM 4.1 MEQ/L (3.6-5); SODIUM 145 MEQ/L (134-144)
[2016-12-19 11:33] LABS: PROBNP 612 PG/ML (0-175)
--- NOTE | 2016-12-19 11:55 | NUR ---
X-RAY X-RAY IN ROOM TO PERFORM PORTABLE CHEST X-RAY.
[2016-12-19 12:02] LABS: INFLUENZA A AG SCREEN NEGATIVE (NEGATIVE); INFLUENZA B AG SCREEN NEGATIVE (NEGATIVE)
--- NOTE | 2016-12-19 12:05 | DI ---
Indication: ITS.REASON: Dyspnea PROCEDURE: CHEST 1 VIEW: Encounter: Initial Comparison: June 15, 2016, June 12, 2016 and May 11, 2014 Findings: There is some hazy airspace opacity in the right infrahilar region and right base along the diaphragm which is slightly more prominent than the comparison studies. Left lung appears clear. No pneumothorax or definite pleural effusion. Heart size and mediastinal contours are stable. Pulmonary vascularity is within normal limits. Impression: Increasing prominence of right basilar airspace opacity, some of which is chronic although there is probably superimposed atelectasis or pneumonia. .
[2016-12-19] MEDS ORDERED: LEVOFLOXACIN 750 mg IVPB 750 MG in D5W 150 ML IV ONE (12:30)
--- NOTE | 2016-12-19 12:35 | ERPDOC ---
Departure Disposition Decision Date: Dec 19, 2016 Disposition Decision Time: 12:15 Disposition: 02 TO [facility] Impression Impression Impression: Primary Impression: Pneumonia Pneumonia type: due to unspecified organism Laterality: right Lung location : lower lobe of lung Qualified Codes: J18.1 - Lobar pneumonia, unspecified organism Severity: Moderate Condition: Stable Seen By: Physician only Referrals: ARTEM GOODMAN DO (Family) Problems/Meds/Labs Reviewed?: Yes Medications reviewed and manag: Yes Follow up care ordered?: Yes Mental Status: Alert, Oriented HPI - Cough/URI General Chief Complaint: Dyspnea/Respdistress Stated Complaint: DIFF BREATHING Time Seen by Provider: 11:07 Source: patient (Patient presents to the ER with a 1 week complaint of increasing SOA. Patient was seen by Dr. Goodman, started on a Prednisone taper, but the patient is not getting relief. Patient has home nebs and a concentrator at home, which she usualy utilizes at night, but has had to use continuously. ), other (Patient's Initial oxygen saturations at 88% on room air ) Exam Limitations: no limitations HPI - Cough/URI Occurred At: home Onset/Timing: Changing over time Duration: 1 week Pain/Severity Scale: Now & Worst: 0/10 Prior Episodes/Possible Cause: occasional episodes Modifying Factors: IMPROVES WITH: inhaler, nebulizer, oxygen, rest, WORSE WITH : activity, coughing Associated Symptoms: cough, shortness of breath, wheezing, DENIES: chest pain/ soreness, dizziness, earache, facial pain, fever/chills, headache, lightheadedness, muscle aches, nasal congestion, nasal drainage, sinus infection , sore throat Hx of Similar Symptoms: Yes Allergies: Coded Allergies: cefaclor (Verified Allergy, Unknown, 06/12/16) Past History Past Medical History Metabolic: hypertension Respiratory: COPD GI: GERD, gallbladder disease Musculoskeletal: osteoarthritis Psychological: anxiety Surgical History General: appendix, gallbladder Reproductive/: hysterectomy Family History Family PMH: FOUND: CAD, COPD, cancer Vaccines Hx Influenza Vaccination: Yes (FALL 2014) Hx Pneumococcal Vaccination: Yes (fall) Hx Tetanus, Diptheria, Pertuss: Yes (PAST 10 YRS) Social History Smoking Status: Former smoker Does patient use chewing tobac: No Second Hand Exposure: No Substance Use Type: does not use Alcohol Intake: none Sexuality: male partner Housing: house Service: No Occupational Hazard: No Advance Directives: Yes Full Code Record Review Pertinent history updated: Yes Review of Systems Constitutional Constitutional: DENIES: chills, fever Eyes Lids/Accessories: DENIES: erythema, swelling ENMT Ears: DENIES: erythema, pain Balance: DENIES: ataxia, vertigo Sinuses: DENIES: congestion, rhinorrhea Mouth/Throat: DENIES: sore throat Cardiovascular Cardiac: DENIES: chest pain, dyspnea on exertion, orthopnea Rhythm/Rate: DENIES: tachycardia Pulmonary Respiratory: cough, dyspnea, tachypnea, DENIES: sputum GI Upper Abdomen: DENIES: nausea, pain, vomiting Lower Abdomen: DENIES: constipation, diarrhea, pain General: DENIES: dysuria Musculoskeletal General: DENIES: cramps, pain, weakness Integumentary Skin: DENIES: color change, itching, rash Neurological General: DENIES: ataxia, change in strength, headache, numbness, poor coordination, seizures, syncope, vertigo, weakness Psychiatric Psychiatric: DENIES: anxiety, depression, nervousness Hematologic/Lymphatic Hematologic/Lymphatic: DENIES: anemia Allergic/Immunological Allergic/Immunoligical: DENIES: sneezing All other Systems All Other Systems: Reviewed and Negative Physical Exam General General Nourishment: well nourished, well developed, appears stated age, adult General Body Habitus: well groomed Vitals and Pain First Documented Vital Signs Date Time Temp Pulse Resp B/P Pulse Ox O2 Delivery O2 Flow Rate FiO2 12/19/16 10:38 98.2 76 28 159/70 88 Room Air 12/19/16 10:41 2.00 Weight: Kilograms: 85.900 Height (feet): 5 Height (inches): 0 Triage Pain Scale: RN VS reviewed by Provider: Yes Eyes (brief) Eyes Brief: found: EOMI, PERRL ENMT (brief) ENMT Brief: FOUND: TM clear, TM good light reflex, mucosa moist, NOT FOUND: pharnyx erythema Neck (brief) Neck: FOUND: trachea midline, NOT FOUND: adenopathy, tenderness, tracheal deviation Respiratory Inspection: FOUND: increased effort, tachypnea, NOT FOUND: accessory muscle use , asymmetry, audible stridor, audible wheezing Palpation: NOT FOUND: tenderness Auscultation: FOUND: decreased, rhonchi, wheezes Cardiovascular (brief) Cardiac: FOUND: regular rate, regular rhythm Capillary Refill: <2 sec Pulses: all distal extremities, equal, strong Abdomen (brief) Abdominal Brief: FOUND: bowel normo active x4, soft, NOT FOUND: distended, tender Lymphatic (brief) Lymphatic Brief: NOT FOUND: adenopathy Musculoskeletal (brief) Musculoskeletal Brief: NOT FOUND: spasm, tenderness Integumentary (brief) Integumentary Brief: FOUND: pink, warm Neurologic (brief) Neurological Brief: FOUND: CN w/o gross def to obs, gait w/o gross def to obs, motor-no gross deficits, sensory-no gross deficits, NOT FOUND: ataxia Psychiatric (brief) Psychiatric Brief: FOUND: alert, attentive, normal affect, oriented Differential Diagnoses Differential Diagnoses Considering: Acute Bronchitis, Asthma Exacerbation, COPD Exacerbation, Influenza, Pneumonia, URI, Viral Syndrome, Other Progress Results/Orders Orders Procedure Category Date Status Time Bmp - Basic Metabolic LAB 12/19/16 Complete Panel 11:07 Blood Gas, Arterial - LAB 12/19/16 Logged ABG 11:07 Probnp LAB 12/19/16 Complete 11:07 Cbc W/Auto LAB 12/19/16 Complete Diff-Reflex Manual 11:07 Blood Culture TRACEY 12/19/16 In Process 11:07 Troponin I W LAB 12/19/16 Complete Hemolysis Index 11:07 EKG EKG 12/19/16 Taken 11:07 Chest 1 View RAD 12/19/16 Resulted 11:07 Iv Lock (Ed Only) EDM 12/19/16 Transmitted 11:07 Albuterol/Ipratropium PHA 12/19/16 Complete (Duoneb) 11:15 Methylprednisolone PHA 12/19/16 Complete Sod Succ (Solu-Medrol 11:15 Oxygen Administration EDM 12/19/16 Transmitted 11:07 Influenza A/B Screen LAB 12/19/16 Complete 11:07 Lactate - Lactic Acid LAB 12/19/16 Complete Procalcitonin LAB 12/19/16 Complete 11:50 Levofloxacin 750 Mg PHA 12/19/16 In Process Ivpb (Levaquin 750 M 12:30 Place In Facility: ED ADM 12/19/16 Transmitted 12:20 Measure Vital Signs MARTHA 12/19/16 In Process 12:20 Up In Room With Assist MARTHA 12/19/16 In Process 12:20 Regular Diet DIET 12/19/16 Transmitted Dinner Iv Lock (Nursing) MARTHA 12/19/16 In Process 12:20 Notify Adm Physician MARTHA 12/19/16 In Process In Am 12:20 Albuterol/Ipratropium PHA 12/19/16 In Process (Duoneb) 15:00 Albuterol/Ipratropium PHA 12/19/16 In Process (Duoneb) 12:30 Levofloxacin 750 Mg PHA 12/20/16 In Process Ivpb (Levaquin 750 M 09:00 Methylprednisolone PHA 12/19/16 In Process Sod Succ (Solu-Medrol 15:00 Lab Results Laboratory Tests Test 12/19/16 10:58 12/19/16 11:37 White Blood Count 11.5T/MM3 Red Blood Count 4.42M/MM3 Hemoglobin 13.0GM/DL Hematocrit 40.9% Mean Corpuscular Volume 92.5UM3 Mean Corpuscular Hemoglobin 29.4UUG Mean Corpuscular Hemoglobin Concent 31.8GM/DL RDW Standard Deviation 47.1FL Platelet Count 274T/MM3 Mean Platelet Volume 10.2UM3 Immature Granulocyte % (Auto) 1.4% Neutrophils (%) (Auto) 80.7% Lymphocytes (%) (Auto) 13.3% Monocytes (%) (Auto) 4.1% Eosinophils (%) (Auto) 0.3% Basophils (%) (Auto) 0.2% Absolute Immature Granulocyte (auto 0.16T/MM3 Absolute Neutrophils (auto) 9.3T/MM3 Absolute Lymphocytes (auto) 1.5T/MM3 Absolute Monocytes (auto) 0.5T/MM3 Absolute Eosinophils (auto) 0.0T/MM3 Absolute Basophils (auto) 0.0T/MM3 Turbidity < 20 Sodium Level 145MEQ/L Potassium Level 4.1MEQ/L Chloride Level 104MEQ/L Carbon Dioxide Level 32MEQ/L Anion Gap 9MEQ/L Blood Urea Nitrogen 26.0MG/DL Creatinine 0.9MG/DL Glomerular Filtration Rate Calc 61 BUN/Creatinine Ratio 29RATIO Glucose Level 94MG/DL Calculated Osmolality 284MOSM/KG Calcium Level 10.2MG/DL Icterus Index < 2 Troponin I < 0.012ng/ml YH-Srr-S-Type Natriuretic Peptide 612PG/ML Chemistry Specimen Hemolysis < 15 Plasma Lactate 1.8MMOL/L Procalcitonin < 0.05NG/ML Influenza Type A Antigen Negative Influenza Type B Antigen Negative Medications Current ED Medications Albuterol/ Ipratropium (Duoneb) 3 ml O ONCE AEROSOL Last administered on 11:15; Start 12/19/16 at 11:15; Stop 12/19/16 at 11:16; Status DC Methylprednisolone Sodium Succinate 125 mg 125 mg O ONCE IV Last administered on 12/19/16 12:01; Start 12/19/16 at 11:15; Stop 12/19/16 at 11:16; Status DC Levofloxacin/ Dextrose/Water (LEVAQUIN 750 mg IVPB/D5W) 150 ml @ 100 mls/hr O ONCE IV Last administered on 12/19/16 12:30; Start 12/19/16 at 12:30; Stop at 13:59 Albuterol/ Ipratropium (Duoneb) 3 ml RTQID AEROSOL ; Start 12/19/16 at 15:00 Albuterol/ Ipratropium 3 ml 3 ml Q4HR PRN AEROSOL SHORTNESS OF AIR; Start 12/19 at 12:30 Levofloxacin/ Dextrose/Water (LEVAQUIN 750 mg IVPB/D5W) 150 ml @ 100 mls/hr DAILY IV ; Start 12/20/16 at 09:00 Methylprednisolone Sodium Succinate (Solu-Medrol) 125 mg Q6HR IV ; Start at 15:00 Progress Progress Patient breathing easier following medications Patient continues to have expiratory wheezing Patient refused ABG EKG EKG : Rate: 60-100 Rhythm: sinus [place]: normal QRS: normal Intervals: normal ST/T: non-specific changes Interpreted by: signing physician EKG ScImage/Pico EKG interpreted in ScImage/Pic: No Consult/PCP Consult/PCP : Physician Contacted: Dr. Jarrett Time Called: 12:15 Time of first response: 12:19 Type of discussion: Admit Discussion/PCP Discussion Details Discussed patient history, examination, labs and x-ray Comments Admit Inpatient Levaquin 750 mg IV Daily Solu Medrol 125mg IV q6hrs DuoNeb RTQID then q4hrs PRN Regular Diet Xray Xray : Reason for Exam: SOA Xray: CXR Portable Interpretation: Abnormal, Reviewed Written Report (RLL infiltrate) TAISHA MAGAÑA DO Dec 19, 2016 12:34
--- NOTE | 2016-12-19 12:36 | NUR ---
ADMISSION SPOKE WITH FRANNY ARSHAD, MEDICAL UNIT CHARGE. PATIENT ASSIGNED ROOM 140. SERGEY TO TAKE REPORT AT EXTENSION [id number].
--- NOTE | 2016-12-19 12:40 | NUR ---
REPORT REPORT CALLED TO FRANNY RINCON, MEDICAL UNIT.
--- NOTE | 2016-12-19 12:43 | NUR ---
REPORT THIS NURSE RECEIVED REPORT FROM ARTEM BLANTON AT THIS TIME, NO CONCERNS AT THIS TIME.
--- NOTE | 2016-12-19 12:55 | NUR ---
ADMIT PT ADMITTED BY CART TO ROOM 140 AT THIS TIME. PT ALERT AND ORIENTED X3. PT ON 4L/NC, EXPERIENCES SOA WITH ACTIVITY. WILL CONTINUE TO MONITOR.
[2016-12-19] MEDS ORDERED: PRN ORDERS MC (13:00)
[2016-12-19] MEDS ORDERED: MILK OF MAGNESIA 30 ML SUSP PO PRN (13:00)
[2016-12-19] MEDS ORDERED: ONDANSETRON 4mg/2ml INJECTION IV PRN (13:00)
[2016-12-19] MEDS ORDERED: MELOXICAM 15 MG TABLET PO PRN (13:00)
[2016-12-19] MEDS ORDERED: MAG-AL + SIM LIQUID 30 ML UDC PO PRN (13:00)
[2016-12-19] MEDS ORDERED: NITROGLYCERIN 0.4 MG SUBLINGUAL TABLET SL PRN (13:00)
[2016-12-19] MEDS ORDERED: BISACODYL 10 MG SUPPOSITORY RECTALLY PRN (13:00)
[2016-12-19 13:34] LABS: ALBUMIN 4.1 G/DL (3.5-5.0); ALBUMIN/GLOBULIN RATIO 1.4 RATIO (1.1-2.2); ALKALINE PHOSPHATASE 79 U/L (38-126); ALT (SGPT) 26 U/L (9-52); AST (SGOT) 24 U/L (14-36)
[2016-12-19 13:43] LABS: BLOOD, URINE NEGATIVE (NEGATIVE); COLOR,URINE YELLOW (YELLOW); LEUKOCYTE ESTERASE ,URINE NEGATIVE (NEGATIVE); NITRITE,URINE NEGATIVE (NEGATIVE); UROBILINOGEN,URINE 0.2 EU/DL (NORMAL)
[2016-12-19] MEDS ORDERED: PNEUMOCOCCAL 23 VACCINE 0.5 ML INJECTION IM ONE (13:45)
--- NOTE | 2016-12-19 14:10 | HPPDOC ---
BRYCE STAFFORD 12/19/16 1350: HPI - Adult Date DATE: 12/19/16 TIME: 13:41 General Chief Complaint: shortness of breath History of Present Illness Valeria Corrigan (Judy) is a pleasant 76-year-old female with COPD/emphysema and severe pulmonary hypertension who presented to [facility] emergency room today, 12/19/16 , for evaluation fo progressively worsening shortness of breath and cough. She reports that about 4-5 days ago she started to have increased shortness of breath and difficulty breathing with non-productive, "deep" cough. She admits to chronically requiring 2L nocturnal O2 but for the past few days was requiring supplemental oxygen. She also states that she has been using her breathing treatments more frequently without complete improvement in her symptoms. She admits to chills and denies any fevers, headache, changes in vision, chest pain, abdominal pain, nausea, vomiting, dysuria, diarrhea or constipation. No recent travel or known sick contacts. Appetite has been stable. She was seen by her PCP, Dr. Santiago on 12/14/16 and started on a prednisone taper without improvement. She tried to follow up with her PCP but was notified that she is currently out of town. Due to her worsening shortness of breath and cough, she presented to [facility] emergency department for further evaluation. Upon arrival, she was found to have a SAO2 of 88% on room air which improved with supplemental oxygen and tachypneic with respiratory rate of 28. CXR was obtained and revealed increasing prominence of right basilar airspace opacity, some of which is chronic, although there is probably superimposed atelectasis or pneumonia. Labs were obtained and revealed leukocytosis 11.5, hgb 13.0, platelets 274, hypernatremia 145, potassium 4.1, BUN 26, SCr 0.9 and glucose 94. Troponin was negative at <0.012. Lactate was 1.8 and procalcitonin was negative at <0.05. Influenza was negative. Due to her acute respiratory failure secondary to pneumonia and COPD, Dr. Jarrett was contacted and she was admitted into inpatient status for further evaluation , close respiratory monitoring, IV antibiotics and respiratory support. Her length of stay is expected to exceed more than 2 over nights. She is seen shortly after her arrival to her room, #140. She is sitting up in bed and is alert and orientated x 3 and nontoxic. She has mild conversational dyspnea with 4-5 word sentences despite wearing supplemental oxygen at 4L. Deep , nonproductive cough noted on exam. Cardiac exam reveals regular rate and rhythm. Lung sounds are diminished bilaterally, worse in the right base with fine crackles noted in the right base. No wheezing or rhonchi. Abdomen is soft , nontender with active bowel sounds. 2+ pedal pulses bilaterally with SCDs in place and no edema noted. . Past Medical History Past Medical History Patient's Medical History: (1) COPD (chronic obstructive pulmonary disease) (2) History of atrial fibrillation (3) HTN (hypertension) (4) Obesity (BMI 30-39.9) (5) GERD (gastroesophageal reflux disease) (6) Moderate to severe pulmonary hypertension (7) OA (osteoarthritis) (8) Gouty arthritis (9) Anxiety Surgical History Patient's Surgical History: Appendectomy - 1954. Cholecystectomy - 1984. Hysterectomy - 1984. Left knee arthroscopy - 2013. Bilateral cataract - 2015. Current Medications Home Meds Active Scripts Amlodipine Besylate (Amlodipine Besylate) 5 Mg Tablet, 5 MG PO DAILY for 30 Days , #30 TAB Prov:OLIVIA WALLACE MD 06/17/16 Prednisone (Prednisone) 20 Mg Tablet, 40 MG PO DAILY for 10 Days, #20 TAB 40 mg PO daily X1 day 30 mg PO dailyt X3 days 20 mg PO dailyt X3 days 10 mg PO dailyt X3 days Then discontinue Prov:OLIVIA WALLACE MD 06/17/16 Hydrocodone/Acetaminophen ([place] 5-325 Tablet) 1 Each Tablet, 1-2 TAB PO Q4-6H Y for PAIN, #60 TAB Prov:TORY CATES 02/10/15 Reported Medications Allopurinol (Allopurinol) 100 Mg Tablet, 100 MG PEG DAILY, TAB 12/19/16 Citalopram Hydrobromide (Citalopram HBr) 10 Mg Tablet, 5 MG PO DAILY 06/12/16 Lansoprazole (Prevacid) 15 Mg Tab.rap.dr, 15 MG PO BID 06/12/16 Gabapentin (Gabapentin) 100 Mg Capsule, 100 MG PO BID Y for PRN ORDERS 06/12/16 Albuterol Sulfate (Ventolin HFA 90 mcg/actuation) 18 Gm Hfa.aer.ad, 1 PUFF INH DAILY Y for PRN ORDERS 06/12/16 Albuterol Sulfate (Albuterol Sulfate) 1.25 Mg/3 Ml Vial.neb, 1 VIAL AEROSOL Q6H Y for PRN ORDERS 06/12/16 Acetaminophen (Tylenol Extra Strength) 500 Mg Tablet, 1000 MG PO Q6H Y for PAIN 02/10/15 Potassium Chloride (Potassium Chloride) 10 Meq Tablet.er, 10 MEQ PO DAILY Y for WITH FUROSEMIDE 02/09/15 Furosemide (Furosemide) 40 Mg Tablet, 40 MG PO DAILY Y for EDEMA 02/09/15 Gabapentin (Gabapentin) 600 Mg Tablet, 600 MG PO HS 02/09/15 Aspirin (Aspirin) 81 Mg Tab.chew, 81 MG PO DAILY 02/09/15 Meloxicam (Mobic) 15 Mg Tablet, 15 MG PO DAILY Y for PAIN 03/14/11 Allergies: Coded Allergies: cefaclor (Verified Allergy, Unknown, 06/12/16) Family History Family History: Mother - , 61, oat cell cancer. Father - , 77, [place], CAD. Daughter - , 55, CHF. 3 living children, reportedly healthy. Social History Smoking Status: Former smoker Does patient use chewing tobac: No Second Hand Exposure: No Quit Date: Oct 01, 1990 Substance Use Type: does not use Alcohol Intake: none, occasionally, a few times a month Marital Status: Housing: house (lives alone) Household Members: none Service: No Occupational Hazard: No Advance Directives: Yes DPOA for Healthcare Only (REKHA CORRIGAN-SON), Yes Full Code Social History Comments PCP - Dr. Santiago. Review of Systems Constitutional: REPORTS: chills, DENIES: appetite decrease, appetite increase, dizziness, fatigue, fever, syncope, weakness, weight gain, weight loss Eyes General: DENIES: photophobia Vision: DENIES: blurring, double vision ENMT Sinuses: NOT FOUND: congestion Mouth/Throat: DENIES: change in swallowing, sore throat Cardiovascular dyspnea on exertion, DENIES: chest pain Rhythm/Rate: DENIES: irregular beat, palpitations, tachycardia Vascular: DENIES: pallor of an extremity, pedal edema, unilateral swelling Pulmonary Respiratory: cough, dyspnea, pneumonia hx, tachypnea, DENIES: pleuritic chest pain, sputum GI Upper Abdomen: DENIES: dysphagia, heartburn/indigestion, nausea, pain, vomiting Lower Abdomen: DENIES: blood in stool, constipation, diarrhea, pain General: DENIES: burning, dysuria, frequency, pain, urgency Musculoskeletal General: DENIES: pain, weakness Integumentary Skin: DENIES: rash Neurological General: DENIES: change in strength, headache, memory disturbances, numbness, seizures, syncope, vertigo, weakness Psychiatric Psychiatric: anxiety, DENIES: depression, memory impairment All Other Systems All Other Systems: Reviewed (remainder of 10-point ROS Neg.) Physical Exam General General Nourishment: well nourished, well developed, obese, adult General Body Habitus: well groomed Vital Signs Vital Signs Date Time Temp Pulse Resp B/P Pulse Ox O2 Delivery O2 Flow Rate FiO2 12/19/16 13:11 91 Nasal Cannula 4.00 12/19/16 13:02 97.7 80 28 161/73 Height (Feet): 5 Height (Inches): 0.00 Eyes Brief: FOUND: PERRL, NOT FOUND: scleral icterus ENMT Brief: FOUND: mucosa moist, normal dentition Neck Brief: FOUND: midline, NOT FOUND: nuchal rigidity, tracheal deviation Respiratory Inspection: FOUND: increased effort, tachypnea, NOT FOUND: asymmetry, audible stridor, prolonged expiration Palpation: NOT FOUND: tenderness Percussion: FOUND: hyper-resonance Auscultation: FOUND: decreased, rales, NOT FOUND: rhonchi, wheezes Breasts: FOUND: symmetric Cardiovascular Auscultation: FOUND: S1, S2, regular Peripheral Pulses: 2+: Carotid (L), Carotid (R), Dorasalis Pedis (L), Dorsalis Pedis (R), Radial (L), Radial (R) Edema: 0: Anasarca, Arm (L), Arm (R), Face, Leg (L), Leg (R) Abdomen Inspection: NOT FOUND: distention Palpation: FOUND: soft, NOT FOUND: involuntary guarding, rebound, tender, voluntary guarding Auscultation: FOUND: normo active Lymphatic (brief) Lymphatic Brief: NOT FOUND: lymphedema Musculoskeletal (brief) Musculoskeletal Brief: FOUND: extremities move equally, NOT FOUND: deformity, loss of motion Integumentary (brief) Integumentary Brief: FOUND: dry, pink, warm Comments afebrile Neurologic (brief) Neurological Brief: FOUND: cranial 2-12 intact, NOT FOUND: facial droop Neurologic RN Documented GCS Eye Opening: Verbal: Motor: Total: Cranial Nerves: FOUND: shoulder shrug, NOT FOUND: facial asymmetry Motor: 5: Biceps (L), Biceps (R), Finger Extensors (L), Foot Extension (L), Foot Extension (R), Foot Flexion (L), Foot Flexion (R), Hamstring (L), Hamstring (R), Quadriceps (L), Quadriceps (R), Triceps (L), Triceps (R), Wrist Extensors (L), Wrist Extensors (R) Sensation: FOUND: cold, soft touch Other Reflexes: FOUND: great toe movement Psychiatric (brief) FOUND: alert, attentive, normal affect, oriented Psychiatric Attitude: FOUND: cooperative Laboratory Laboratory Tests Test 12/19/16 10:58 12/19/16 11:37 12/19/16 13:08 White Blood Count 11.5T/MM3 Red Blood Count 4.42M/MM3 Hemoglobin 13.0GM/DL Hematocrit 40.9% Mean Corpuscular Volume 92.5UM3 Mean Corpuscular Hemoglobin 29.4UUG Mean Corpuscular Hemoglobin Concent 31.8GM/DL RDW Standard Deviation 47.1FL Platelet Count 274T/MM3 Mean Platelet Volume 10.2UM3 Immature Granulocyte % (Auto) 1.4% Neutrophils (%) (Auto) 80.7% Lymphocytes (%) (Auto) 13.3% Monocytes (%) (Auto) 4.1% Eosinophils (%) (Auto) 0.3% Basophils (%) (Auto) 0.2% Absolute Immature Granulocyte (auto 0.16T/MM3 Absolute Neutrophils (auto) 9.3T/MM3 Absolute Lymphocytes (auto) 1.5T/MM3 Absolute Monocytes (auto) 0.5T/MM3 Absolute Eosinophils (auto) 0.0T/MM3 Absolute Basophils (auto) 0.0T/MM3 Turbidity < 20 < 20 Sodium Level 145MEQ/L Potassium Level 4.1MEQ/L Chloride Level 104MEQ/L Carbon Dioxide Level 32MEQ/L Anion Gap 9MEQ/L Blood Urea Nitrogen 26.0MG/DL Creatinine 0.9MG/DL Glomerular Filtration Rate Calc 61 BUN/Creatinine Ratio 29RATIO Glucose Level 94MG/DL Calculated Osmolality 284MOSM/KG Calcium Level 10.2MG/DL Icterus Index < 2 < 2 Troponin I < 0.012ng/ml [id number] Natriuretic Peptide 612PG/ML Chemistry Specimen Hemolysis < 15 < 15 Total Bilirubin 0.70MG/DL Conjugated Bilirubin 0.00MG/DL Unconjugated Bilirubin 0.10MG/DL Aspartate Amino Transf (AST/SGOT) 24U/L Alanine Aminotransferase (ALT/SGPT) 26U/L Alkaline Phosphatase 79U/L Total Protein 7.0G/DL Albumin 4.1G/DL Globulin 2.9G/DL Albumin/Globulin Ratio 1.4RATIO Plasma Lactate 1.8MMOL/L Procalcitonin < 0.05NG/ML Influenza Type A Antigen Negative Influenza Type B Antigen Negative Assessment & Plan Problems: (1) Acute respiratory failure with hypoxia Status: Acute Assessment & Plan: present on admission. (2) Pneumonia Status: Acute Qualifiers: Pneumonia type: due to unspecified organism Laterality: right Lung location: lower lobe of lung Qualified Codes: J18.1 - Lobar pneumonia, unspecified organism (3) COPD exacerbation Status: Acute (4) Leukocytosis Status: Acute Assessment & Plan: present on admission. (5) Hypernatremia Status: Acute Assessment & Plan: present on admission. (6) HTN (hypertension) Status: Chronic (7) Atrial fibrillation, currently in sinus rhythm Status: Chronic (8) Moderate to severe pulmonary hypertension Status: Chronic (9) Anxiety Status: Chronic (10) GERD (gastroesophageal reflux disease) Status: Chronic (11) Obesity (BMI 30-39.9) Status: Chronic Plan/Intensity of Service 12/19/16: Marc.ADMIT - Assessment/Plan. Acute respiratory failure with hypoxia: * Admit to inpatient status under the care of Dr. Jarrett. * Monitor respiratory function closely with continuous pulse oximetry. * SCDs for DVT prophylaxis. Pneumonia, acute with leukocytosis (WBC 11.5 on admission): * CXR in ED showed increased prominence of right basilar airspace opacity, some of which is chronic although maybe superimposed atelectasis or pneumonia. * Levaquin 750mg IV daily initiated in ED for coverage of pulmonary pathogens. Blood cultures pending; monitor sensitivities. Will try and obtain sputum culture. * Acapella for pulmonary toileting. * Mucinex for mucolytic effect. * Respiratory support including breathing treatments - DuoNeb QID and PRN and budesonide BID. * Tessalon pearls and Ricola for cough. * Routine medications for bowel motivation. * Recheck CBC and BMP in AM to monitor blood counts, electrolytes and renal function. Acute COPD exacerbation: * Solu-medrol 125mg IV Q6H for pulmonary inflammation. Consider changing to oral prednisone when more stable. * Influenza swab negative. Will check respiratory panel now. Hypernatremia: * Initiate NS 75cc/hr for gentle hydration. Monitor closely for signs of fluid overload with daily weights. Hypertension, chronic: * Continue home Norvasc and Lasix; monitor blood pressure closely. History of a-fib, currently sinus rhythm: * Monitor closely on telemetry. Moderate to severe pulmonary hypertension: * Echocardiogram from 05/05/2014 - normal VL systolic function with EF 70%; biatrial dilation, mitral sclerosis and mild mitral regurg, mild tricuspid regurg with severe pulmonary hypertension with estimated pulmonary artery systolic pressure of 73. GERD: * Continue home Prevacid for GI protection and GERD. Anxiety, chronic: * Ativan as needed for anxiety. Obesity: Upon discharge, patient's care will be returned to her PCP, Dr. Santiago. DVT Prophylaxis: SCD'S Code Status Full Code Hospital Course Summary Disclaimer The hospital course summary below is not to be considered part of the above Progress Note. Hospital Course Summary 12/19/16: Marc.ADMIT - Assessment/Plan. Acute respiratory failure with hypoxia: * Admit to inpatient status under the care of Dr. Jarrett. * Monitor respiratory function closely with continuous pulse oximetry. * SCDs for DVT prophylaxis. Pneumonia, acute with leukocytosis (WBC 11.5 on admission): * CXR in ED showed increased prominence of right basilar airspace opacity, some of which is chronic although maybe superimposed atelectasis or pneumonia. * Levaquin 750mg IV daily initiated in ED for coverage of pulmonary pathogens. Blood cultures pending; monitor sensitivities. Will try and obtain sputum culture. * Acapella for pulmonary toileting. * Mucinex for mucolytic effect. * Respiratory support including breathing treatments - DuoNeb QID and PRN and budesonide BID. * Tessalon pearls and Ricola for cough. * Routine medications for bowel motivation. * Recheck CBC and BMP in AM to monitor blood counts, electrolytes and renal function. Acute COPD exacerbation: * Solu-medrol 125mg IV Q6H for pulmonary inflammation. Consider changing to oral prednisone when more stable. * Influenza swab negative. Will check respiratory panel now. Hypernatremia: * Initiate NS 75cc/hr for gentle hydration. Monitor closely for signs of fluid overload with daily weights. Hypertension, chronic: * Continue home Norvasc and Lasix; monitor blood pressure closely. History of a-fib, currently sinus rhythm: * Monitor closely on telemetry. Moderate to severe pulmonary hypertension: * Echocardiogram from 05/05/2014 - normal VL systolic function with EF 70%; biatrial dilation, mitral sclerosis and mild mitral regurg, mild tricuspid regurg with severe pulmonary hypertension with estimated pulmonary artery systolic pressure of 73. GERD: * Continue home Prevacid for GI protection and GERD. Anxiety, chronic: * Ativan as needed for anxiety. Obesity: Upon discharge, patient's care will be returned to her PCP, Dr. Santiago. ALIREZA JARRETT MD 12/19/16 3481: Past Medical History Current Medications Home Meds Active Scripts Amlodipine Besylate (Amlodipine Besylate) 5 Mg Tablet, 5 MG PO DAILY for 30 Days , #30 TAB Prov:OLIVIA WALLACE MD 06/17/16 Prednisone (Prednisone) 20 Mg Tablet, 40 MG PO DAILY for 10 Days, #20 TAB 40 mg PO daily X1 day 30 mg PO dailyt X3 days 20 mg PO dailyt X3 days 10 mg PO dailyt X3 days Then discontinue Prov:OLIVIA WALLACE MD 06/17/16 Hydrocodone/Acetaminophen ([place] 5-325 Tablet) 1 Each Tablet, 1-2 TAB PO Q4-6H Y for PAIN, #60 TAB Prov:TORY CATES 02/10/15 Reported Medications Allopurinol (Allopurinol) 100 Mg Tablet, 100 MG PEG DAILY, TAB 12/19/16 Citalopram Hydrobromide (Citalopram HBr) 10 Mg Tablet, 5 MG PO DAILY 06/12/16 Lansoprazole (Prevacid) 15 Mg Tab.rap., 15 MG PO BID 06/12/16 Gabapentin (Gabapentin) 100 Mg Capsule, 100 MG PO BID Y for PRN ORDERS 06/12/16 Albuterol Sulfate (Ventolin HFA 90 mcg/actuation) 18 Gm Hfa.aer.ad, 1 PUFF INH DAILY Y for PRN ORDERS 06/12/16 Albuterol Sulfate (Albuterol Sulfate) 1.25 Mg/3 Ml Vial.neb, 1 VIAL AEROSOL Q6H Y for PRN ORDERS 06/12/16 Acetaminophen (Tylenol Extra Strength) 500 Mg Tablet, 1000 MG PO Q6H Y for PAIN 02/10/15 Potassium Chloride (Potassium Chloride) 10 Meq Tablet.er, 10 MEQ PO DAILY Y for WITH FUROSEMIDE 02/09/15 Furosemide (Furosemide) 40 Mg Tablet, 40 MG PO DAILY Y for EDEMA 02/09/15 Gabapentin (Gabapentin) 600 Mg Tablet, 600 MG PO HS 02/09/15 Aspirin (Aspirin) 81 Mg Tab.chew, 81 MG PO DAILY 02/09/15 Meloxicam (Mobic) 15 Mg Tablet, 15 MG PO DAILY Y for PAIN 03/14/11 Allergies: Coded Allergies: cefaclor (Verified Allergy, Unknown, 06/12/16) Assessment & Plan Problems: (1) Pneumonia Status: Acute Qualifiers: Pneumonia type: due to unspecified organism Laterality: right Lung location: lower lobe of lung Qualified Codes: J18.1 - Lobar pneumonia, unspecified organism (2) Acute respiratory failure with hypoxia Status: Acute Assessment & Plan: present on admission. (3) COPD exacerbation Status: Acute (4) Leukocytosis Status: Acute Assessment & Plan: present on admission. (5) Hypernatremia Status: Acute Assessment & Plan: present on admission. (6) HTN (hypertension) Status: Chronic (7) Atrial fibrillation, currently in sinus rhythm Status: Chronic (8) Moderate to severe pulmonary hypertension Status: Chronic (9) Anxiety Status: Chronic (10) GERD (gastroesophageal reflux disease) Status: Chronic (11) Obesity (BMI 30-39.9) Status: Chronic Plan/Intensity of Service Have independently interviewed and examined pt. Chart reviewed. Case discussed with ED physician and my DRAY DRIVER. Care plan developed with my supervision; agree with above. Increasing SOA and cough for the past week. Cough nonproductive - not able to mobilize sputum. More winded with activities-walks short distances and O2 saturations will decrease to 85-88%. Seen in clinic and started on Prednisone 40mg, but not helping symptoms. Using Mucinex DM and acapella to no avail. Having episodes of anxiety due to shortness of breath. Notes chills. No nausea or ab pain. Eating well - trying to drink plenty of fluids to maintain hydration. Bowel stable. Urine stable. Notes increased sinus congestion and dryness. Much more tired and weak. Not smoking. Lungs: decreased, little air movement, scattered wheezes. Conversational dyspnea despite O2. Frequent cough. CV: regular. AB: soft nt/nd +BS MSE: awake alert appropriate Gen: looks tired and ill Plan: Inpatient admission-anticipate greater than 2 midnights of care needed. IV Levaquin for pulmonary coverage. IV Solu-Medrol to decrease pulmonary inflammation. Neb treatments of Duoneb and budesonide. Mucinex DM routinely with Tessalon Perle and Phenergan with Codeine prn cough. Acapella. Supplemental O2. Ativan prn anxiety due to air hunger. SCD. PRN medications okayed. Continue home medications. Monitor lab. BRYCE STAFFORD Dec 19, 2016 13:50 ALIREZA JARRETT MD Dec 19, 2016 15:51
[2016-12-19] MEDS: GUAIFENESIN DM 600mg/30mg TABLET PO SCH ×2 (14:13→20:49)
[2016-12-19] MEDS ORDERED: FUROSEMIDE 40 MG TABLET PO PRN ×2 (14:30→18:15)
[2016-12-19] MEDS ORDERED: POTASSIUM CHLORIDE 10 MEQ TABLET PO PRN (14:30)
[2016-12-19] MEDS: NORMAL SALINE 1,000 ML IV SCH (14:47)
[2016-12-19] MEDS: SALINE NASAL SPRAY 45ml EA NOSTRIL SCH ×3 (15:30→20:50)
[2016-12-19] MEDS: ALBUTEROL/IPRATROPIUM INHAL. 2.5mg-0.5mg/3ml Neb. AEROSOL SCH ×2 (16:57→21:15)
[2016-12-19] MEDS: PROMETHAZINE/CODEINE ORAL SYRUP PO PRN (17:08)
--- NOTE | 2016-12-19 18:32 | NUR ---
SHIFT SUMMARY PT ALERT AND ORIENTED X3. PT ON 3.5L/NC, EXPERIENCES SOA WITH COUGHING SPELLS WELL ACTIVITY. PT DENIES PAIN, DENIES N/V. UP WITH STAND BY ASSIST, STEADY ON FEET. PT DENIES LIGHTHEADEDNESS, DENIES DIZZINESS. IVF INFUSING ORDERED INTO LEFT AC. ADEQUATE URINE OUTPUT. PT ABLE TO MAKE NEEDS KNOWN. BED ALARM ON, CALL LIGHT WITHIN REACH.
[2016-12-19] MEDS: GABAPENTIN 600 MG TABLET PO SCH (20:49)
[2016-12-19] MEDS: DOCUSATE SODIUM 100 MG CAPSULE PO SCH (20:49)
[2016-12-19] MEDS: LANSOPRAZOLE SOLU-TAB 15 MG TABLET PO SCH (20:49)
[2016-12-19] MEDS: BUDESONIDE INH.SOLN. 0.5mg/2ml NEB AEROSOL SCH (21:14)
[2016-12-19] MEDS: ACETAMINOPHEN 500 MG TABLET PO PRN (22:20)
[2016-12-20] VITALS (7 sets, daily range): BP systolic 153–168; BP diastolic 62–68; PULSE 72–85; RESP 16–24; TEMP 96.2–98.5; O2SAT 90–95
[2016-12-20] MEDS: NORMAL SALINE 1,000 ML IV SCH ×2 (03:47→10:15)
[2016-12-20 05:21] LABS: HGB - HEMOGLOBIN 11.8 GM/DL (12-16); MEAN CORPUSCULAR HGB 29.4 UUG (26-34); MEAN CORPUSCULAR HGB CONC(MCHC 31.9 GM/DL (31-37); MEAN CORPUSCULAR VOLUME 92.3 UM3 (80-100); MEAN PLATELET VOLUME 10.3 UM3 (9.4-12.4); RED BLOOD COUNT 4.01 M/MM3 (4.00-5.20); WBC - WHITE BLOOD COUNT 6.1 T/MM3 (4.5-11.0)
[2016-12-20] MEDS: ACETAMINOPHEN 500 MG TABLET PO PRN (05:22)
--- NOTE | 2016-12-20 05:29 | NUR ---
SUMMARY PT SLEPT ON AND OFF THIS SHIFT. A&O X3. ABLE TO VOICE NEEDS TOT THE STAFFS. PT IS ASSIST X 1 TO THE BATHROOM. WAS GIVEN TYLENOL X 2 THIS SHIFT FOR HEADACHE. WAS EDUCATED ABOUT CALL LIGHT USE AND PT SAFETY. VOICED UNDERSTANDING. CONTINUES ON IV FLUIDS THAT SHE TOLERATES WELL.
[2016-12-20 05:41] LABS: ANION GAP 10 MEQ/L (5-15); BUN/CREATININE RATIO 29 RATIO (6-26); CALCIUM 9.2 MG/DL (8.4-10.2); CHLORIDE 105 MEQ/L (98-107); CO2 - CARBON DIOXIDE 25 MEQ/L (22-30); CREATININE 0.8 MG/DL (0.7-1.2); GLOMERULAR FILTRATION RATE 70; GLUCOSE 132 MG/DL (65-110); SODIUM 140 MEQ/L (134-144)
[2016-12-20 05:42] LABS: POTASSIUM 5.5 MEQ/L (3.6-5)
[2016-12-20 06:12] LABS: MYELOCYTES # 0.1 T/MM3; NEUTROPHILS #(MANUAL)-ABSOLUTE 1.7 T/MM3 (1.8-7.7); TOTAL CELLS COUNTED 100 %
[2016-12-20] MEDS: BUDESONIDE INH.SOLN. 0.5mg/2ml NEB AEROSOL SCH ×2 (07:33→19:57)
[2016-12-20] MEDS: ALBUTEROL/IPRATROPIUM INHAL. 2.5mg-0.5mg/3ml Neb. AEROSOL SCH ×4 (07:33→19:57)
--- NOTE | 2016-12-20 10:20 | PNPDOC ---
Subjective Date DATE: 12/20/16 TIME: 10:06 Subjective F/U: Pneumonia, acute respiratory failure with hypoxia Doing a little better. Feels able to breath slightly better. Still with significant cough and congestion, not mobilizing sputum. Notes frontal NGO - feels from all the coughing. No nausea or ab pain. Eating well. Passing flatus. Urinating well. Did go for walk this am, but O2 saturations decreased to the 80' s. Objective Vital Signs Vital signs Vital Signs Date Time Temp Pulse Resp B/P Pulse Ox O2 Delivery O2 Flow Rate FiO2 12/20/16 08:12 96.2 72 16 168/67 92 Nasal Cannula 12/20/16 07:34 2.00 Height (Feet): 5 Height (Inches): 0.00 Weight (Kilograms): 85.200 General General Appearance: Alert, Obese, Orientated x 3, Well Nourished, Well Developed, Cooperative, Mild Distress Eyes (Brief) Eyes: FOUND: EOMI, PERRL, NOT FOUND: scleral icterus ENMT (Brief) ENMT: FOUND: hearing intact, mucosa moist Neck (Brief) Neck: FOUND: nuchal rigidity, spasm, NOT FOUND: midline Respiratory (Brief) Respiratory: FOUND: other (Conversational dyspnea. ), wheezes, NOT FOUND: clear all mott (Coarse bilaterally. Decreased air movement.) Cardiovascular (Brief) Cardiac: FOUND: regular rate, regular rhythm, NOT FOUND: pedal edema Abdomen (Brief) Abdominal: FOUND: BS normo active x4, soft, NOT FOUND: distended, tender Extremities (Brief) Extremity : Side: Bilateral Extremity: leg Extremity Finding: FOUND: other (SCD ), NOT FOUND: edema Musculoskeletal (Brief) Musculoskeletal: FOUND: extremities move equally, NOT FOUND: deformity, loss of motion, spasm, tenderness Neurologic (Brief) Neurological: FOUND: cranial 2-12 intact, motor (Intact ) Psychiatric (Brief) Psychiatric: FOUND: alert, attentive, normal affect, oriented Laboratory Laboratory Laboratory Tests 12/19/16 10:58 12/20/16 03:42 Laboratory Tests 12/19/16 10:58 12/20/16 03:42 Microbiology Microbiology Microbiology Date/Time Source Procedure Growth Status 12/19/16 11:38 Peripheral/Iv Start Blood Culture - Preliminary CULTURE INITIATED - RESULTS PENDING Resulted 12/19/16 11:38 Peripheral/Iv Start Blood Culture - Preliminary CULTURE INITIATED - RESULTS PENDING Resulted Assessment & Plan Problems: (1) Pneumonia Status: Acute Qualifiers: Pneumonia type: due to unspecified organism Laterality: right Lung location: lower lobe of lung Qualified Codes: J18.1 - Lobar pneumonia, unspecified organism (2) Acute respiratory failure with hypoxia Status: Acute Assessment & Plan: present on admission. (3) COPD exacerbation Status: Acute (4) Leukocytosis Status: Acute Assessment & Plan: present on admission. (5) Hypernatremia Status: Acute Assessment & Plan: present on admission. (6) HTN (hypertension) Status: Chronic (7) Atrial fibrillation, currently in sinus rhythm Status: Chronic (8) Moderate to severe pulmonary hypertension Status: Chronic (9) Anxiety Status: Chronic (10) GERD (gastroesophageal reflux disease) Status: Chronic (11) Obesity (BMI 30-39.9) Status: Chronic Plan/Intensity of Service Continue Levaquin 750mg IV daily for antimicrobial coverage. Continue with Steroids and Neb treatments. Decrease IVF to 50cc/hr. Continue supplemental O2, weaning as able. Encourage ambulation as able. Will hold on am lab tomorrow due to pt's request. Time spent with patient 25 minutes. DVT Prophylaxis: SCD'S Code Status Full Code Hospital Course Summary Disclaimer The hospital course summary below is not to be considered part of the above Progress Note. Hospital Course Summary 12/19/16: Marc.ADMIT - Assessment/Plan. Acute respiratory failure with hypoxia: * Admit to inpatient status under the care of Dr. Jarrett. * Monitor respiratory function closely with continuous pulse oximetry. * SCDs for DVT prophylaxis. Pneumonia, acute with leukocytosis (WBC 11.5 on admission): * CXR in ED showed increased prominence of right basilar airspace opacity, some of which is chronic although maybe superimposed atelectasis or pneumonia. * Levaquin 750mg IV daily initiated in ED for coverage of pulmonary pathogens. Blood cultures pending; monitor sensitivities. Will try and obtain sputum culture. * Acapella for pulmonary toileting. * Mucinex for mucolytic effect. * Respiratory support including breathing treatments - DuoNeb QID and PRN and budesonide BID. * Tessalon pearls and Ricola for cough. * Routine medications for bowel motivation. * Recheck CBC and BMP in AM to monitor blood counts, electrolytes and renal function. Acute COPD exacerbation: * Solu-medrol 125mg IV Q6H for pulmonary inflammation. Consider changing to oral prednisone when more stable. * Influenza swab negative. Will check respiratory panel now. Hypernatremia: * Initiate NS 75cc/hr for gentle hydration. Monitor closely for signs of fluid overload with daily weights. Hypertension, chronic: * Continue home Norvasc and Lasix; monitor blood pressure closely. History of a-fib, currently sinus rhythm: * Monitor closely on telemetry. Moderate to severe pulmonary hypertension: * Echocardiogram from 05/05/2014 - normal VL systolic function with EF 70%; biatrial dilation, mitral sclerosis and mild mitral regurg, mild tricuspid regurg with severe pulmonary hypertension with estimated pulmonary artery systolic pressure of 73. GERD: * Continue home Prevacid for GI protection and GERD. Anxiety, chronic: * Ativan as needed for anxiety. Obesity: Upon discharge, patient's care will be returned to her PCP, Dr. Santiago. 12/20 Doing a little better. Feels able to breath slightly better. Still with significant cough and congestion, not mobilizing sputum. Notes frontal NGO - feels from all the coughing. No nausea or ab pain. Eating well. Passing flatus. Urinating well. Did go for walk this am, but O2 saturations decreased to the 80' s. Potassium with increase, but with significant hemolysis. Continue Levaquin 750mg IV daily for antimicrobial coverage. Continue with Steroids and Neb treatments. Decrease IVF to 50cc/hr. Continue supplemental O2, weaning as able. Encourage ambulation as able. Will hold on am lab tomorrow due to pt's request. ALIREZA JARRETT MD Dec 20, 2016 10:10
[2016-12-20] MEDS: CITALOPRAM 10mg TABLET PO SCH (10:27)
[2016-12-20] MEDS: ASPIRIN 81 MG CHEWABLE TABLET PO SCH (10:27)
[2016-12-20] MEDS: ALLOPURINOL 100 MG TABLET PO SCH (10:28)
[2016-12-20] MEDS: SALINE NASAL SPRAY 45ml EA NOSTRIL SCH ×4 (10:28→21:00)
[2016-12-20] MEDS: LANSOPRAZOLE SOLU-TAB 15 MG TABLET PO SCH ×2 (10:28→21:31)
[2016-12-20] MEDS: AMLODIPINE 5 MG TABLET PO SCH (10:28)
[2016-12-20] MEDS: GUAIFENESIN DM 600mg/30mg TABLET PO SCH ×2 (10:28→21:31)
[2016-12-20] MEDS: DOCUSATE SODIUM 100 MG CAPSULE PO SCH ×2 (10:28→21:31)
--- NOTE | 2016-12-20 11:05 | NUR ---
CM HAYDENE SCORE IS 8 Addendum: 12/20/16 at 1105 by [place] Amended: Links added.
--- NOTE | 2016-12-20 11:13 | NUR ---
CM SPOKE WITH PT, INTRODUCED SELF, EXPLAINED ROLE, PROVIDED CONTACT INFO. PT STATED SHE LIVES IN [place] AND PLANS ON RETURNING HOME UPON DC. HER SON WILL PICK HER UP. SHE HAS OXYGEN AT NIGHT THROUGH [employer], AND SHE HAS A PORTABLE THAT SHE KEEPS FOR EMERGENCIES. SHE HAS NO OTHER DME, AND STATED SHE WILL NOT NEED ANY DME. SHE HAD NO DC QUESTIONS/NEEDS FOR THIS WORKER. ENCOURAGED HER TO CALL IF QUESTIONS/NEEDS DO ARISE. Addendum: 12/20/16 at 1116 by [place] Amended: Links added.
[2016-12-20] MEDS: LEVOFLOXACIN 750 mg IVPB 750 MG in D5W 150 ML IV SCH (11:58)
[2016-12-20] MEDS: HYDROCODONE/APAP 5 mg/325 mg TABLET PO PRN (12:00)
--- NOTE | 2016-12-20 15:49 | NUR ---
Shift summary Pt experienced SOA with ambulation. Oxygen saturation remained between 83-99 during ambulation with increasing oxygen to 5L. Patient oxygen levels reached 93% once resting in bed after ambulation with oxygen at 3L. Patient stated this being the first time she has walked in the halls.
--- NOTE | 2016-12-20 19:16 | NUR ---
status Pt A/O x3, V/S stable on 2-4L depending on if she has ambulated to bathroom. Pt eating well, good urination for shift. Pt denies pain and no PRN meds given. Pt did ambulate in halls, did have SOA but denies pain while ambulating.
[2016-12-20] MEDS: GABAPENTIN 100 MG CAPSULE PO PRN (21:31)
[2016-12-20] MEDS: LORAZEPAM 2 MG/ML INJECTION IV PRN (21:32)
[2016-12-20] MEDS: GABAPENTIN 600 MG TABLET PO SCH (22:00)
[2016-12-21] VITALS (11 sets, daily range): BP systolic 153–157; BP diastolic 69–80; PULSE 75–103; RESP 18–28; TEMP 95.8–96.5; O2SAT 91–98
[2016-12-21] MEDS: PROMETHAZINE/CODEINE ORAL SYRUP PO PRN ×3 (00:02→20:58)
[2016-12-21] MEDS: LORAZEPAM 2 MG/ML INJECTION IV PRN ×3 (02:04→21:00)
[2016-12-21] MEDS: HYDROCODONE/APAP 5 mg/325 mg TABLET PO PRN ×2 (02:10→15:04)
--- NOTE | 2016-12-21 04:56 | NUR ---
SHIFT SUMMARY PT A/O X 3. CONTINUE ON 4L OF 02 PER PT'S REQUEST. SHE STATES FEELING SOA WITH ACTIVITIES. V/S STABLE THIS SHIFT. PT REQUESTED ATIVAN FOR SLEEP X 2. PT UP TO BATHROOM WITH ONE ASSIST AFTER RECEIVING ATIVAN. INCREASED COUGHING PER PT THOUGH SHIFT. SCD'S ON FOR MOST OF THE SHIFT. PT ASKED FOR THEM TO BE OFF AT 0300 FOR COMFORT. HAD HEADACHE MOST OF THE SHIFT WAS UNABLE TO SLEEP. PT ASKED FOR MEDICATION FOR H/A. CALL LIGHT WITHIN REACH. BED ALARM OFF.
[2016-12-21] MEDS: NORMAL SALINE 1,000 ML IV SCH (06:15)
[2016-12-21] MEDS: ALBUTEROL/IPRATROPIUM INHAL. 2.5mg-0.5mg/3ml Neb. AEROSOL SCH ×4 (07:12→19:21)
[2016-12-21] MEDS: BUDESONIDE INH.SOLN. 0.5mg/2ml NEB AEROSOL SCH ×2 (07:13→19:21)
--- NOTE | 2016-12-21 08:00 | NUR ---
received report Patient is alert and oriented. Resting in bed in no apparent distress at this time. Patient gets SOA with Ambulation. Remain in bed with 2LNC, 3L with bathroom trip. Denies any concerns at this time. NS @50ml/hr LAC.
[2016-12-21] MEDS: ASPIRIN 81 MG CHEWABLE TABLET PO SCH (09:15)
[2016-12-21] MEDS: AMLODIPINE 5 MG TABLET PO SCH ×2 (09:15→09:17)
[2016-12-21] MEDS: SALINE NASAL SPRAY 45ml EA NOSTRIL SCH ×4 (09:16→21:00)
[2016-12-21] MEDS: ALLOPURINOL 100 MG TABLET PO SCH (09:17)
[2016-12-21] MEDS: GUAIFENESIN DM 600mg/30mg TABLET PO SCH ×2 (09:17→20:59)
[2016-12-21] MEDS: CITALOPRAM 10mg TABLET PO SCH (09:17)
[2016-12-21] MEDS: LANSOPRAZOLE SOLU-TAB 15 MG TABLET PO SCH ×2 (09:17→20:59)
[2016-12-21] MEDS: DOCUSATE SODIUM 100 MG CAPSULE PO SCH ×2 (09:19→20:59)
[2016-12-21] MEDS ORDERED: POLYETHYL.GLYCOL 3350 PACKET 17gm PO PRN (09:45)
[2016-12-21] MEDS: LEVOFLOXACIN 750 mg IVPB 750 MG in D5W 150 ML IV SCH (12:16)
--- NOTE | 2016-12-21 12:22 | PNPDOC ---
Subjective Date DATE: 12/21/16 TIME: 12:13 Subjective F/U: Pneumonia, acute respiratory failure with hypoxia Rough night-slept poorly. More SOA and O2 needed to be increased. Continued cough. Minimal sputum production. Does feel lungs starting to loosen up slightly. Eating well without nausea or ab pain. Did have bowel movement. Tongue starting to feel sore - worries about developing thrush. Urinating well. Did ambulate this am. Objective Vital Signs Vital signs Vital Signs Date Time Temp Pulse Resp B/P Pulse Ox O2 Delivery O2 Flow Rate FiO2 12/21/16 11:53 70 12/21/16 11:46 96 3.00 12/21/16 11:43 18 12/21/16 08:00 96.1 153/71 Nasal Cannula Height (Feet): 5 Height (Inches): 0.00 Weight (Kilograms): 85.900 General General Appearance: Alert, Obese, Orientated x 3, Well Nourished, Well Developed, Cooperative, Other (Looks more tired and weak today), Moderate Distress, Looks Stated Age Eyes (Brief) Eyes: FOUND: EOMI, PERRL, NOT FOUND: scleral icterus ENMT (Brief) ENMT: FOUND: hearing intact, mucosa moist (No thrush ) Neck (Brief) Neck: FOUND: midline, NOT FOUND: nuchal rigidity, spasm Respiratory (Brief) Respiratory: FOUND: other (Conversational dyspnea despite O2 use. ), wheezes, NOT FOUND: clear all mott, equal bilaterally (Better air movement on left as compaired to right. ) Cardiovascular (Brief) Cardiac: FOUND: pedal edema (trace ), regular rate, regular rhythm Abdomen (Brief) Abdominal: FOUND: BS normo active x4, soft, NOT FOUND: distended, tender Musculoskeletal (Brief) Musculoskeletal: FOUND: extremities move equally, NOT FOUND: deformity, spasm Integumentary (Brief) Integumentary: FOUND: dry, warm Neurologic (Brief) Neurological: FOUND: cranial 2-12 intact, motor (Intact ) Psychiatric (Brief) Psychiatric: FOUND: alert, attentive, normal affect, oriented Laboratory Laboratory Laboratory Tests 12/20/16 03:42 Laboratory Tests 12/20/16 03:42 Microbiology Microbiology Microbiology Date/Time Source Procedure Growth Status 12/19/16 11:38 Peripheral/Iv Start Blood Culture - Preliminary NO GROWTH AFTER 48 HOURS Resulted 12/19/16 11:38 Peripheral/Iv Start Blood Culture - Preliminary NO GROWTH AFTER 48 HOURS Resulted Assessment & Plan Problems: (1) Pneumonia Status: Acute Qualifiers: Pneumonia type: due to unspecified organism Laterality: right Lung location: lower lobe of lung Qualified Codes: J18.1 - Lobar pneumonia, unspecified organism (2) Acute respiratory failure with hypoxia Status: Acute Assessment & Plan: present on admission. (3) COPD exacerbation Status: Acute (4) Leukocytosis Status: Acute Assessment & Plan: present on admission. (5) Hypernatremia Status: Acute Assessment & Plan: present on admission. (6) HTN (hypertension) Status: Chronic (7) Atrial fibrillation, currently in sinus rhythm Status: Chronic (8) Moderate to severe pulmonary hypertension Status: Chronic (9) Anxiety Status: Chronic (10) GERD (gastroesophageal reflux disease) Status: Chronic (11) Obesity (BMI 30-39.9) Status: Chronic Plan/Intensity of Service Continue Levaquin 750mg IV daily for antimicrobial coverage. Day #3. Continue with Steroids and Neb treatments. Continue acapella use. Continue with supplemental O2. May d/c IVF as taking po well. Will place PICC line as having difficulty maintaining IV access. Start Mycelex to decrease risk of thrush - antibiotics and steroids risk factors. Encourage ambulation as able. Recheck BMP in am to assess electrolytes and renal status in light of medication use. Recheck CBC in am due to pneumonia CXR PA/Lat in am for F/U of infiltrate. Time spent with patient 35 minutes. DVT Prophylaxis: SCD'S Code Status Full Code Hospital Course Summary Disclaimer The hospital course summary below is not to be considered part of the above Progress Note. Hospital Course Summary 12/19/16: Marc.ADMIT - Assessment/Plan. Acute respiratory failure with hypoxia: * Admit to inpatient status under the care of Dr. Jarrett. * Monitor respiratory function closely with continuous pulse oximetry. * SCDs for DVT prophylaxis. Pneumonia, acute with leukocytosis (WBC 11.5 on admission): * CXR in ED showed increased prominence of right basilar airspace opacity, some of which is chronic although maybe superimposed atelectasis or pneumonia. * Levaquin 750mg IV daily initiated in ED for coverage of pulmonary pathogens. Blood cultures pending; monitor sensitivities. Will try and obtain sputum culture. * Acapella for pulmonary toileting. * Mucinex for mucolytic effect. * Respiratory support including breathing treatments - DuoNeb QID and PRN and budesonide BID. * Tessalon pearls and Ricola for cough. * Routine medications for bowel motivation. * Recheck CBC and BMP in AM to monitor blood counts, electrolytes and renal function. Acute COPD exacerbation: * Solu-medrol 125mg IV Q6H for pulmonary inflammation. Consider changing to oral prednisone when more stable. * Influenza swab negative. Will check respiratory panel now. Hypernatremia: * Initiate NS 75cc/hr for gentle hydration. Monitor closely for signs of fluid overload with daily weights. Hypertension, chronic: * Continue home Norvasc and Lasix; monitor blood pressure closely. History of a-fib, currently sinus rhythm: * Monitor closely on telemetry. Moderate to severe pulmonary hypertension: * Echocardiogram from 05/05/2014 - normal VL systolic function with EF 70%; biatrial dilation, mitral sclerosis and mild mitral regurg, mild tricuspid regurg with severe pulmonary hypertension with estimated pulmonary artery systolic pressure of 73. GERD: * Continue home Prevacid for GI protection and GERD. Anxiety, chronic: * Ativan as needed for anxiety. Obesity: Upon discharge, patient's care will be returned to her PCP, Dr. Santiago. 12/20 Doing a little better. Feels able to breath slightly better. Still with significant cough and congestion, not mobilizing sputum. Notes frontal NGO - feels from all the coughing. No nausea or ab pain. Eating well. Passing flatus. Urinating well. Did go for walk this am, but O2 saturations decreased to the 80' s. Potassium with increase, but with significant hemolysis. Continue Levaquin 750mg IV daily for antimicrobial coverage. Continue with Steroids and Neb treatments. Decrease IVF to 50cc/hr. Continue supplemental O2, weaning as able. Encourage ambulation as able. Will hold on am lab tomorrow due to pt's request. 12/21 Rough night-slept poorly. More SOA and O2 needed to be increased. Continued cough. Minimal sputum production. Does feel lungs starting to loosen up slightly. Eating well without nausea or ab pain. Did have bowel movement. Tongue starting to feel sore - worries about developing thrush. Urinating well. Did ambulate this am. Continue Levaquin 750mg IV daily for antimicrobial coverage. Day #3. Continue with Steroids and Neb treatments. Continue acapella use. Continue with supplemental O2. May d/c IVF as taking po well. Will place PICC line as having difficulty maintaining IV access. Start Mycelex to decrease risk of thrush - antibiotics and steroids risk factors. Encourage ambulation as able. Recheck BMP in am to assess electrolytes and renal status in light of medication use. Recheck CBC in am due to pneumonia CXR PA/Lat in am for F/U of infiltrate. ALIREZA JARRETT MD Dec 21, 2016 12:16
--- NOTE | 2016-12-21 12:30 | NUR ---
Elevated BNP IVF stopped. Patient remains on antibiotics. Mid line is ordered due exhaustion with peripheral sites.
--- NOTE | 2016-12-21 12:57 | NUR ---
CM CM IN TO VISIT PATIENT, SHE VERIFIES THE DISCHARGE PLAN IS TO RETURN HOME. SHE HAS HOME OXYGEN THAT PRIOR TO ADMISSION SHE WAS ON OXYGEN AT NIGHT ONLY BUT HAS A PORTABLE OXYGEN SYSTEM ALREADY. THIS CM CONTACT INFORMATION GIVEN.
[2016-12-21] MEDS: BENZONATATE 200 MG CAPSULE PO PRN (15:04)
[2016-12-21] MEDS: CLOTRIMAZOLE 10 MG TROCHE PO SCH ×3 (15:04→23:00)
--- NOTE | 2016-12-21 17:35 | NUR ---
Ambulation Patient requests to ambulate. Uses 5L NC during ambulation and still gets SOA.
--- NOTE | 2016-12-21 19:23 | NUR ---
EOS Patient is resting in bed in no apparent distress. Report given to oncoming nurse. Remains on 2L NC O2 this evening.
[2016-12-21] MEDS: MENTHOL COUGH DROPS (RICOLA) MM PRN (20:59)
[2016-12-21] MEDS: GABAPENTIN 600 MG TABLET PO SCH (20:59)
[2016-12-22] VITALS (9 sets, daily range): BP systolic 158–177; BP diastolic 72–80; PULSE 71–87; RESP 12–22; TEMP 96.1–96.7; O2SAT 92–97
[2016-12-22] MEDS: BENZONATATE 200 MG CAPSULE PO PRN ×3 (01:59→20:35)
[2016-12-22] MEDS: LORAZEPAM 2 MG/ML INJECTION IV PRN ×3 (02:00→20:25)
[2016-12-22 05:36] LABS: HCT - HEMATOCRIT 36.2 % (36-46); HGB - HEMOGLOBIN 11.7 GM/DL (12-16); MEAN CORPUSCULAR HGB 29.5 UUG (26-34); MEAN CORPUSCULAR HGB CONC(MCHC 32.3 GM/DL (31-37); MEAN CORPUSCULAR VOLUME 91.4 UM3 (80-100); MEAN PLATELET VOLUME 10.2 UM3 (9.4-12.4); RED BLOOD COUNT 3.96 M/MM3 (4.00-5.20); WBC - WHITE BLOOD COUNT 7.6 T/MM3 (4.5-11.0)
[2016-12-22 05:40] LABS: ANION GAP 7 MEQ/L (5-15); BUN/CREATININE RATIO 28 RATIO (6-26); CALCIUM 9.6 MG/DL (8.4-10.2); CHLORIDE 103 MEQ/L (98-107); CO2 - CARBON DIOXIDE 31 MEQ/L (22-30); GLOMERULAR FILTRATION RATE 54; GLUCOSE 186 MG/DL (65-110); SODIUM 141 MEQ/L (134-144)
[2016-12-22 06:16] LABS: BAND NEUTROPHILS # 0.8 T/MM3; LYMPHOCYTES # (MANUAL) 0.2 T/MM3 (1-4.8); MONOCYTES # (MANUAL) 0.2 T/MM3 (0-0.8); NEUTROPHILS #(MANUAL)-ABSOLUTE 6.5 T/MM3 (1.8-7.7); REACTIVE LYMPHOCYTES # 0.1 T/MM3 (0-0); TOTAL CELLS COUNTED 100 %
--- NOTE | 2016-12-22 06:17 | NUR ---
SHIFT SUMMARY PT ALERT AND ORIENTED X 3. UP AT [facility]ATTY IN HER ROOM. CALLS NEEDED FOR ASSIST. PT BECOMES SOA WITH ACTIVITIES. CONTINUES ON 02 PER NC ON 2-3L AT REST. 02 TURNED UP TO 4-5L NEEDED WITH PT IS WALKING. MIDLINE INTACT DIFFICULT AT TIMES TO PUSH MEDICATIONS. LABS WERE DONE USING MIDLINE PER PT'S REQUEST. RECEIVED IN REPORT NOT TO USE THE MIDLINE FOR LABS. INFUSION STAFF WAS CONCERN IT EFFECT THE MIDLINE. REVIEWED WITH LAB STAFF AND PT. PT WAS ABLE TO SLEEP FOR 3 HOURS AFTER TAKING ATIVAN. WENT FOR X-RAY PER W/C CALL LIGHT WITHIN REACH.
[2016-12-22] MEDS: CLOTRIMAZOLE 10 MG TROCHE PO SCH ×5 (06:53→23:46)
[2016-12-22] MEDS: BUDESONIDE INH.SOLN. 0.5mg/2ml NEB AEROSOL SCH ×2 (08:19→21:01)
[2016-12-22] MEDS: ALBUTEROL/IPRATROPIUM INHAL. 2.5mg-0.5mg/3ml Neb. AEROSOL SCH ×4 (08:19→21:01)
--- NOTE | 2016-12-22 08:19 | DI ---
INDICATION: ITS.REASON: F/U PROCEDURE: CHEST 2-VIEWS UPRIGHT (PA \T\ LAT) Encounter: Initial COMPARISON: December 19, 2016 FINDINGS: Aeration of the right lung base has improved with minimal residual opacity. Lung mott are otherwise clear. Probable calcified granuloma in the right upper lobe. There is no pleural effusion or pneumothorax. The heart size, mediastinal contours and pulmonary vascularity are within normal limits. There is no significant skeletal abnormality. IMPRESSION: Improving aeration of the right lower lobe. .
[2016-12-22] MEDS: LANSOPRAZOLE SOLU-TAB 15 MG TABLET PO SCH ×2 (09:05→20:25)
[2016-12-22] MEDS: ALLOPURINOL 100 MG TABLET PO SCH (09:06)
[2016-12-22] MEDS: GUAIFENESIN DM 600mg/30mg TABLET PO SCH ×2 (09:06→20:25)
[2016-12-22] MEDS: CITALOPRAM 10mg TABLET PO SCH (09:06)
[2016-12-22] MEDS: SALINE NASAL SPRAY 45ml EA NOSTRIL SCH ×4 (09:06→20:27)
[2016-12-22] MEDS: ASPIRIN 81 MG CHEWABLE TABLET PO SCH (09:06)
[2016-12-22] MEDS: DOCUSATE SODIUM 100 MG CAPSULE PO SCH ×2 (09:07→20:25)
--- NOTE | 2016-12-22 10:09 | PNPDOC ---
Subjective Date DATE: 12/22/16 TIME: 09:54 Subjective F/U: Pneumonia, acute respiratory failure with hypoxia Feeling making gains. Did sleep better last night-still very tired and weak this am. Cough with decrease, not mobilizing sputum. Feels less SOA and congested. Eating well. Mouth much less discomfortable. Bowels moving. Working on ambulating to keep strength up. No f/c. Urinating well. Objective Vital Signs Vital signs Vital Signs Date Time Temp Pulse Resp B/P Pulse Ox O2 Delivery O2 Flow Rate FiO2 12/22/16 08:20 20 12/22/16 08:20 97 Nasal Cannula 2.00 12/22/16 01:43 96.1 86 165/74 Height (Feet): 5 Height (Inches): 0.00 Weight (Kilograms): 85.900 General General Appearance: Alert, Obese, Orientated x 3, Well Nourished, Well Developed, Cooperative, Mild Distress, Other (Appears tired), Looks Stated Age Eyes (Brief) Eyes: FOUND: EOMI, PERRL, NOT FOUND: scleral icterus ENMT (Brief) ENMT: FOUND: hearing intact, NOT FOUND: mucosa moist (Dry) Neck (Brief) Neck: FOUND: nuchal rigidity, spasm, NOT FOUND: midline Respiratory (Brief) Respiratory: FOUND: other (Decrease breath sounds bilaterally, improving air movement on right. No coverasational dyspnea with O2.), NOT FOUND: rales, wheezes Cardiovascular (Brief) Cardiac: FOUND: regular rate, regular rhythm, NOT FOUND: pedal edema Abdomen (Brief) Abdominal: FOUND: BS normo active x4, soft, NOT FOUND: distended, tender Extremities (Brief) Extremity : Side: Bilateral Extremity: leg Extremity Finding: NOT FOUND: edema Musculoskeletal (Brief) Musculoskeletal: FOUND: extremities move equally, NOT FOUND: deformity, loss of motion, spasm, tenderness Integumentary (Brief) Integumentary: FOUND: dry, warm Neurologic (Brief) Neurological: FOUND: cranial 2-12 intact, motor (Intact ) Psychiatric (Brief) Psychiatric: FOUND: alert, attentive, normal affect, oriented Laboratory Laboratory Laboratory Tests 12/22/16 04:31 Laboratory Tests 12/22/16 04:31 Microbiology Microbiology Microbiology Date/Time Source Procedure Growth Status 12/19/16 11:38 Peripheral/Iv Start Blood Culture - Preliminary NO GROWTH AFTER 48 HOURS Resulted 3/21/17 11:38 Peripheral/Iv Start Blood Culture - Preliminary NO GROWTH AFTER 48 HOURS Resulted Assessment & Plan Problems: (1) Pneumonia Status: Acute Qualifiers: Pneumonia type: due to unspecified organism Laterality: right Lung location: lower lobe of lung Qualified Codes: J18.1 - Lobar pneumonia, unspecified organism (2) Acute respiratory failure with hypoxia Status: Acute Assessment & Plan: present on admission. (3) COPD exacerbation Status: Acute (4) Leukocytosis Status: Acute Assessment & Plan: present on admission. (5) Hypernatremia Status: Resolved Assessment & Plan: present on admission. (6) HTN (hypertension) Status: Chronic (7) Atrial fibrillation, currently in sinus rhythm Status: Chronic (8) Moderate to severe pulmonary hypertension Status: Chronic (9) Anxiety Status: Chronic (10) GERD (gastroesophageal reflux disease) Status: Chronic (11) Obesity (BMI 30-39.9) Status: Chronic Plan/Intensity of Service Continue Levaquin 750mg IV daily for antimicrobial coverage. Day #4. Decrease Solu-Medrol to 62.5mg IV q 6 hours. Continue with DuoNeb and budesonide. Pt using Acapella routinely and finds is helpful. Continue with supplemental O2 - wean as able. Encourage ambulation to increase functional status. Case discussed with CM. Time spent with patient 35 minutes. DVT Prophylaxis: SCD'S Code Status Full Code Hospital Course Summary Disclaimer The hospital course summary below is not to be considered part of the above Progress Note. Hospital Course Summary 12/19/16: Marc.ADMIT - Assessment/Plan. Acute respiratory failure with hypoxia: * Admit to inpatient status under the care of Dr. Jarrett. * Monitor respiratory function closely with continuous pulse oximetry. * SCDs for DVT prophylaxis. Pneumonia, acute with leukocytosis (WBC 11.5 on admission): * CXR in ED showed increased prominence of right basilar airspace opacity, some of which is chronic although maybe superimposed atelectasis or pneumonia. * Levaquin 750mg IV daily initiated in ED for coverage of pulmonary pathogens. Blood cultures pending; monitor sensitivities. Will try and obtain sputum culture. * Acapella for pulmonary toileting. * Mucinex for mucolytic effect. * Respiratory support including breathing treatments - DuoNeb QID and PRN and budesonide BID. * Tessalon pearls and Ricola for cough. * Routine medications for bowel motivation. * Recheck CBC and BMP in AM to monitor blood counts, electrolytes and renal function. Acute COPD exacerbation: * Solu-medrol 125mg IV Q6H for pulmonary inflammation. Consider changing to oral prednisone when more stable. * Influenza swab negative. Will check respiratory panel now. Hypernatremia: * Initiate NS 75cc/hr for gentle hydration. Monitor closely for signs of fluid overload with daily weights. Hypertension, chronic: * Continue home Norvasc and Lasix; monitor blood pressure closely. History of a-fib, currently sinus rhythm: * Monitor closely on telemetry. Moderate to severe pulmonary hypertension: * Echocardiogram from 05/05/2014 - normal VL systolic function with EF 70%; biatrial dilation, mitral sclerosis and mild mitral regurg, mild tricuspid regurg with severe pulmonary hypertension with estimated pulmonary artery systolic pressure of 73. GERD: * Continue home Prevacid for GI protection and GERD. Anxiety, chronic: * Ativan as needed for anxiety. Obesity: Upon discharge, patient's care will be returned to her PCP, Dr. Santiago. 12/20 Doing a little better. Feels able to breath slightly better. Still with significant cough and congestion, not mobilizing sputum. Notes frontal NGO - feels from all the coughing. No nausea or ab pain. Eating well. Passing flatus. Urinating well. Did go for walk this am, but O2 saturations decreased to the 80' s. Potassium with increase, but with significant hemolysis. Continue Levaquin 750mg IV daily for antimicrobial coverage. Continue with Steroids and Neb treatments. Decrease IVF to 50cc/hr. Continue supplemental O2, weaning as able. Encourage ambulation as able. Will hold on am lab tomorrow due to pt's request. 12/21 Rough night-slept poorly. More SOA and O2 needed to be increased. Continued cough. Minimal sputum production. Does feel lungs starting to loosen up slightly. Eating well without nausea or ab pain. Did have bowel movement. Tongue starting to feel sore - worries about developing thrush. Urinating well. Did ambulate this am. Continue Levaquin 750mg IV daily for antimicrobial coverage. Day #3. Continue with Steroids and Neb treatments. Continue acapella use. Continue with supplemental O2. May d/c IVF as taking po well. Will place PICC line as having difficulty maintaining IV access. Start Mycelex to decrease risk of thrush - antibiotics and steroids risk factors. Encourage ambulation as able. Recheck BMP in am to assess electrolytes and renal status in light of medication use. Recheck CBC in am due to pneumonia CXR PA/Lat in am for F/U of infiltrate. 12/22 Feeling making gains. Did sleep better last night-still very tired and weak this am. Cough with decrease, not mobilizing sputum. Feels less SOA and congested. Eating well. Mouth much less discomfortable. Bowels moving. Working on ambulating to keep strength up. No f/c. Urinating well. Continue Levaquin 750mg IV daily for antimicrobial coverage. Day #4. Decrease Solu-Medrol to 62.5mg IV q 6 hours. Continue with DuoNeb and budesonide. Pt using Acapella routinely and finds is helpful. Continue with supplemental O2 - wean as able. Encourage ambulation to increase functional status. ALIREZA JARRETT MD Dec 22, 2016 09:57
[2016-12-22] MEDS: LEVOFLOXACIN 750 mg IVPB 750 MG in D5W 150 ML IV SCH (12:33)
--- NOTE | 2016-12-22 18:42 | NUR ---
status Pt A/O x3, V/S stable on 3-5L, pt will increase O2 when ambulating and turn back down after recovering. Pt denies pain at this time and no PRN meds given for pain. PRN ativan to help with sleep this afternoon, pt stated it helps. Pt up at rema in room, denies dizziness. Urine output good for shift, had 2 BM today. Midline remains hard to flush, does not aspirate. Pt did walk the halls with RT, O2 elevated to 5L to maintain 90%, this is her baseline at home.
[2016-12-22] MEDS: GABAPENTIN 100 MG CAPSULE PO PRN (20:25)
[2016-12-22] MEDS: GABAPENTIN 600 MG TABLET PO SCH (20:29)
--- NOTE | 2016-12-22 20:40 | NUR ---
PRN PT WAS GIVEN PRN COUGH MEDICATION AND ATIVAN FOR ANXIETY PER HER REQUEST. PT ALERT AND ORIENTED. EDUCATED ABOUT USE OF CALL LIGHT AND SAFETY. DENIED ANY PAIN.
[2016-12-23] VITALS (11 sets, daily range): BP systolic 143–184; BP diastolic 76–96; PULSE 78–150; RESP 20–24; TEMP 96.2–96.7; O2SAT 92–97
[2016-12-23] MEDS: CLOTRIMAZOLE 10 MG TROCHE PO SCH ×4 (05:40→19:47)
--- NOTE | 2016-12-23 06:28 | NUR ---
SUMMARY. PT WATCHING TV AT THE MOMENT. CALL LIGHT WITHIN REACH. PT A&O X 3. DENIED ANY PAIN. SLEPT WELL AFTER TAKING ATIVAN LAST NIGHT. AMBULATE TO THE BATHROOM WITH NO ASSIST. GAIT STEADY. EDUCATED ABOUT CALL LIGHT USE AND SAFETY. WILL CONTINUE TO MONITOR.
[2016-12-23] MEDS: ALBUTEROL/IPRATROPIUM INHAL. 2.5mg-0.5mg/3ml Neb. AEROSOL SCH ×4 (07:40→14:56)
[2016-12-23] MEDS: BUDESONIDE INH.SOLN. 0.5mg/2ml NEB AEROSOL SCH ×2 (07:40→20:09)
[2016-12-23] MEDS: ALLOPURINOL 100 MG TABLET PO SCH (09:08)
[2016-12-23] MEDS: ASPIRIN 81 MG CHEWABLE TABLET PO SCH (09:08)
[2016-12-23] MEDS: SALINE NASAL SPRAY 45ml EA NOSTRIL SCH ×4 (09:08→21:13)
[2016-12-23] MEDS: CITALOPRAM 10mg TABLET PO SCH (09:08)
[2016-12-23] MEDS: GUAIFENESIN DM 600mg/30mg TABLET PO SCH ×2 (09:08→21:12)
[2016-12-23] MEDS: AMLODIPINE 5 MG TABLET PO SCH (09:08)
[2016-12-23] MEDS: BENZONATATE 200 MG CAPSULE PO PRN (09:08)
[2016-12-23] MEDS: DOCUSATE SODIUM 100 MG CAPSULE PO SCH ×2 (09:08→21:23)
[2016-12-23] MEDS: LANSOPRAZOLE SOLU-TAB 15 MG TABLET PO SCH ×2 (09:08→21:12)
[2016-12-23] MEDS: PROMETHAZINE/CODEINE ORAL SYRUP PO PRN ×2 (10:18→19:47)
[2016-12-23] MEDS: LEVOFLOXACIN 750 mg IVPB 750 MG in D5W 150 ML IV SCH (11:20)
[2016-12-23] MEDS ORDERED: DILTIAZEM 25mg/5ml INJECTION IV ONE ×2 (12:30→13:15)
--- NOTE | 2016-12-23 12:47 | NUR ---
status Talked with EDWARD Cole with increased SOA for pt, N.O. to use more PRN breathing TX and start incentive spirometer. Addendum: 12/23/16 at 1252 by CRISTAL MANN RN this was at 0830.
--- NOTE | 2016-12-23 12:48 | NUR ---
status Talked with dr Jarrett at 1200 r/t increased hrt and SOA. N.O. for state EKG and 1x cardizem IV. SBP came down, hrt down to 140-150.
--- NOTE | 2016-12-23 12:52 | NUR ---
status Cardizem given, pt denies hrt chest pain before and after med given. Through out morning pt has denies any pain, just hard to breath.
--- NOTE | 2016-12-23 14:04 | NUR ---
status Updated dr Jarrett on hrt after 1st does of arnold. N.O. to give another does.
[2016-12-23] MEDS ORDERED: DIGOXIN 500mcg/2ml INJECTION IV ONE ×2 (14:15→20:00)
--- NOTE | 2016-12-23 14:57 | PNPDOC ---
Subjective Date DATE: 12/23/16 TIME: 14:32 Subjective F/U: Pneumonia, acute respiratory failure with hypoxia More SOA today. O2 needs increased. Cough, but no sputum. No chest pain or pain with breathing. Not with nausea or ab pain. More tired and weak today. HR did increase around noon. EKG showing Afib with RVR. Objective Vital Signs Vital signs Vital Signs Date Time Temp Pulse Resp B/P Pulse Ox O2 Delivery O2 Flow Rate FiO2 12/23/16 14:20 144 12/23/16 12:39 22 143/96 94 Nasal Cannula 5.00 12/23/16 08:00 96.7 Height (Feet): 5 Height (Inches): 0.00 Weight (Kilograms): 85.100 General General Appearance: Alert, Obese, Orientated x 3, Well Nourished, Well Developed, Cooperative, Mild Distress, Other (Appears more weak and tired. ), Looks Stated Age Eyes (Brief) Eyes: FOUND: EOMI, PERRL, NOT FOUND: scleral icterus ENMT (Brief) ENMT: FOUND: hearing intact, mucosa moist Neck (Brief) Neck: FOUND: midline, NOT FOUND: nuchal rigidity, spasm Respiratory (Brief) Respiratory: FOUND: equal bilaterally, other (Conversational dyspnea ), wheezes (Increased wheezes bilaterally ), NOT FOUND: clear all mott Cardiovascular (Brief) Cardiac: NOT FOUND: pedal edema, regular rate (irregular ), regular rhythm ( Irregular ) Abdomen (Brief) Abdominal: FOUND: BS normo active x4, soft, NOT FOUND: distended, tender Extremities (Brief) Extremity : Side: Bilateral Extremity: leg Extremity Finding: NOT FOUND: edema Musculoskeletal (Brief) Musculoskeletal: FOUND: extremities move equally, NOT FOUND: deformity, loss of motion, spasm, tenderness Integumentary (Brief) Integumentary: FOUND: dry, warm Neurologic (Brief) Neurological: FOUND: cranial 2-12 intact, motor (Intact ) Psychiatric (Brief) Psychiatric: FOUND: alert, attentive, normal affect, oriented, other (Tired apearing ) Laboratory Laboratory Laboratory Tests 12/22/16 04:31 Laboratory Tests 12/22/16 04:31 Assessment & Plan Problems: (1) Atrial fibrillation with rapid ventricular response Status: Acute Assessment & Plan: Onset 12/23 (2) Pneumonia Status: Acute Qualifiers: Pneumonia type: due to unspecified organism Laterality: right Lung location: lower lobe of lung Qualified Codes: J18.1 - Lobar pneumonia, unspecified organism (3) Acute respiratory failure with hypoxia Status: Acute Assessment & Plan: present on admission. (4) COPD exacerbation Status: Acute (5) Leukocytosis Status: Acute Assessment & Plan: present on admission. (6) Hypernatremia Status: Resolved Assessment & Plan: present on admission. (7) HTN (hypertension) Status: Chronic (8) Atrial fibrillation, currently in sinus rhythm Status: Chronic Assessment & Plan: POA - RVR developed on 12/23 (9) Moderate to severe pulmonary hypertension Status: Chronic (10) Anxiety Status: Chronic (11) GERD (gastroesophageal reflux disease) Status: Chronic (12) Obesity (BMI 30-39.9) Status: Chronic Plan/Intensity of Service Diltiazem bolus of 5mgx1 and then 10mgx1 given without decrease in HR. Digoxin 0.5mg IV x1 given Monitor HR - if not decreasing will need to transfer to CCU for diltiazem drip. Continue Levaquin 750mg IV daily for antimicrobial coverage. Day #5. Decrease Solu-Medrol to 62.5mg IV q 6 hours. Continue with DuoNeb and budesonide. Continue Acapella. Continue with supplemental O2. Case discussed with CM, nursing and pt's daughter. Time spent with patient 35 minutes. Code Status Full Code Hospital Course Summary Disclaimer The hospital course summary below is not to be considered part of the above Progress Note. Hospital Course Summary 12/19/16: Marc.ADMIT - Assessment/Plan. Acute respiratory failure with hypoxia: * Admit to inpatient status under the care of Dr. Jarrett. * Monitor respiratory function closely with continuous pulse oximetry. * SCDs for DVT prophylaxis. Pneumonia, acute with leukocytosis (WBC 11.5 on admission): * CXR in ED showed increased prominence of right basilar airspace opacity, some of which is chronic although maybe superimposed atelectasis or pneumonia. * Levaquin 750mg IV daily initiated in ED for coverage of pulmonary pathogens. Blood cultures pending; monitor sensitivities. Will try and obtain sputum culture. * Acapella for pulmonary toileting. * Mucinex for mucolytic effect. * Respiratory support including breathing treatments - DuoNeb QID and PRN and budesonide BID. * Tessalon pearls and Ricola for cough. * Routine medications for bowel motivation. * Recheck CBC and BMP in AM to monitor blood counts, electrolytes and renal function. Acute COPD exacerbation: * Solu-medrol 125mg IV Q6H for pulmonary inflammation. Consider changing to oral prednisone when more stable. * Influenza swab negative. Will check respiratory panel now. Hypernatremia: * Initiate NS 75cc/hr for gentle hydration. Monitor closely for signs of fluid overload with daily weights. Hypertension, chronic: * Continue home Norvasc and Lasix; monitor blood pressure closely. History of a-fib, currently sinus rhythm: * Monitor closely on telemetry. Moderate to severe pulmonary hypertension: * Echocardiogram from 05/05/2014 - normal VL systolic function with EF 70%; biatrial dilation, mitral sclerosis and mild mitral regurg, mild tricuspid regurg with severe pulmonary hypertension with estimated pulmonary artery systolic pressure of 73. GERD: * Continue home Prevacid for GI protection and GERD. Anxiety, chronic: * Ativan as needed for anxiety. Obesity: Upon discharge, patient's care will be returned to her PCP, Dr. Santiago. 12/20 Doing a little better. Feels able to breath slightly better. Still with significant cough and congestion, not mobilizing sputum. Notes frontal NGO - feels from all the coughing. No nausea or ab pain. Eating well. Passing flatus. Urinating well. Did go for walk this am, but O2 saturations decreased to the 80' s. Potassium with increase, but with significant hemolysis. Continue Levaquin 750mg IV daily for antimicrobial coverage. Continue with Steroids and Neb treatments. Decrease IVF to 50cc/hr. Continue supplemental O2, weaning as able. Encourage ambulation as able. Will hold on am lab tomorrow due to pt's request. 12/21 Rough night-slept poorly. More SOA and O2 needed to be increased. Continued cough. Minimal sputum production. Does feel lungs starting to loosen up slightly. Eating well without nausea or ab pain. Did have bowel movement. Tongue starting to feel sore - worries about developing thrush. Urinating well. Did ambulate this am. Continue Levaquin 750mg IV daily for antimicrobial coverage. Day #3. Continue with Steroids and Neb treatments. Continue acapella use. Continue with supplemental O2. May d/c IVF as taking po well. Will place PICC line as having difficulty maintaining IV access. Start Mycelex to decrease risk of thrush - antibiotics and steroids risk factors. Encourage ambulation as able. Recheck BMP in am to assess electrolytes and renal status in light of medication use. Recheck CBC in am due to pneumonia CXR PA/Lat in am for F/U of infiltrate. 12/22 Feeling making gains. Did sleep better last night-still very tired and weak this am. Cough with decrease, not mobilizing sputum. Feels less SOA and congested. Eating well. Mouth much less discomfortable. Bowels moving. Working on ambulating to keep strength up. No f/c. Urinating well. Continue Levaquin 750mg IV daily for antimicrobial coverage. Day #4. Solu-Medrol continues Continue with DuoNeb and budesonide. Pt using Acapella routinely and finds is helpful. Continue with supplemental O2 - wean as able. Encourage ambulation to increase functional status. 12/23 More SOA today. O2 needs increased. Cough, but no sputum. No chest pain or pain with breathing. Not with nausea or ab pain. More tired and weak today. HR did increase around noon. EKG showing Afib with RVR. Diltiazem bolus of 5mgx1 and then 10mgx1 given without decrease in HR. Digoxin 0.5mg IV x1 given Monitor HR - if not decreasing will need to transfer to CCU for diltiazem drip. Continue Levaquin 750mg IV daily for antimicrobial coverage. Day #5. Decrease Solu-Medrol to 62.5mg IV q 6 hours. Continue with DuoNeb and budesonide. Continue Acapella. Continue with supplemental O2. ALIREZA JARRETT MD Dec 23, 2016 14:36
[2016-12-23] MEDS: LORAZEPAM 2 MG/ML INJECTION IV PRN ×2 (15:37→21:22)
[2016-12-23] MEDS: ALBUTEROL/IPRATROPIUM INHAL. 2.5mg-0.5mg/3ml Neb. AEROSOL PRN ×2 (17:06→20:13)
--- NOTE | 2016-12-23 19:52 | NUR ---
status Pt A/O x3, V/S stable on 5L after digoxin, hrt remained between 90-110. Pt denies pain and no PRN pain meds given. PRN ativan given and pt able to get rest. Pt eating well, urine output good for shift. O2 remains on 5L for comfort.
[2016-12-23] MEDS: GABAPENTIN 600 MG TABLET PO SCH (21:12)
--- NOTE | 2016-12-23 22:00 | NUR ---
PRN PT WAS GIVEN ATIVAN FOR ANXIETY AND PHENERGAN PER HER REQUEST. PT DENIED ANY PAIN. COUGHING AT THE MOMENT. PT HAD REQUESTED TO GET HER HS MEDS EARLY SO THAT SHE CAN SLEEP. ON 5L/NC O2. WILL CONTINUE TO MONITOR.
[2016-12-24] VITALS (14 sets, daily range): BP systolic 143–196; BP diastolic 71–101; PULSE 76–97; RESP 16–22; TEMP 96–96.9; O2SAT 92–99
[2016-12-24] MEDS: CLOTRIMAZOLE 10 MG TROCHE PO SCH ×6 (00:05→22:21)
[2016-12-24 05:09] LABS: HCT - HEMATOCRIT 38.8 % (36-46); HGB - HEMOGLOBIN 12.4 GM/DL (12-16); MEAN CORPUSCULAR VOLUME 90.9 UM3 (80-100); MEAN PLATELET VOLUME 9.7 UM3 (9.4-12.4); RED BLOOD COUNT 4.27 M/MM3 (4.00-5.20); WBC - WHITE BLOOD COUNT 6.6 T/MM3 (4.5-11.0)
[2016-12-24 05:28] LABS: ANION GAP 4 MEQ/L (5-15); BUN/CREATININE RATIO 28 RATIO (6-26); CALCIUM 9.2 MG/DL (8.4-10.2); CHLORIDE 101 MEQ/L (98-107); CO2 - CARBON DIOXIDE 34 MEQ/L (22-30); CREATININE 0.9 MG/DL (0.7-1.2); GLOMERULAR FILTRATION RATE 61; GLUCOSE 173 MG/DL (65-110); POTASSIUM 3.8 MEQ/L (3.6-5); SODIUM 139 MEQ/L (134-144)
[2016-12-24 06:15] LABS: LYMPHOCYTES # (MANUAL) 0.5 T/MM3 (1-4.8); MONOCYTES # (MANUAL) 0.1 T/MM3 (0-0.8); NEUTROPHILS #(MANUAL)-ABSOLUTE 5.9 T/MM3 (1.8-7.7); TOTAL CELLS COUNTED 100 %
--- NOTE | 2016-12-24 06:51 | NUR ---
SUMMARY PT HAS NO CHANGES THIS SHIFT. A&O X3. SLEPT WELL AFTER HS ATIVAN. DENIED PAIN THIS AM. TOOK A BATH THIS AM. EDUCATED ABOUT CALL LIGHT USE AND PT SAFETY. WATCHING TV AT THE MOMENT.
[2016-12-24] MEDS: ALBUTEROL/IPRATROPIUM INHAL. 2.5mg-0.5mg/3ml Neb. AEROSOL SCH ×4 (07:03→20:48)
[2016-12-24] MEDS: BUDESONIDE INH.SOLN. 0.5mg/2ml NEB AEROSOL SCH ×2 (07:03→20:49)
[2016-12-24] MEDS: PROMETHAZINE/CODEINE ORAL SYRUP PO PRN ×3 (07:41→22:21)
[2016-12-24] MEDS: BENZONATATE 200 MG CAPSULE PO PRN ×2 (07:41→14:16)
[2016-12-24] MEDS: ASPIRIN 81 MG CHEWABLE TABLET PO SCH (09:48)
[2016-12-24] MEDS: CITALOPRAM 10mg TABLET PO SCH (09:49)
[2016-12-24] MEDS: DOCUSATE SODIUM 100 MG CAPSULE PO SCH ×2 (09:49→20:18)
[2016-12-24] MEDS: GUAIFENESIN DM 600mg/30mg TABLET PO SCH ×2 (09:49→20:15)
[2016-12-24] MEDS: LANSOPRAZOLE SOLU-TAB 15 MG TABLET PO SCH ×2 (09:49→20:17)
[2016-12-24] MEDS: DIGOXIN 125 MCG TABLET PO SCH (09:49)
[2016-12-24] MEDS: AMLODIPINE 5 MG TABLET PO SCH (09:49)
[2016-12-24] MEDS: ALLOPURINOL 100 MG TABLET PO SCH (09:49)
[2016-12-24] MEDS: SALINE NASAL SPRAY 45ml EA NOSTRIL SCH ×4 (09:53→20:16)
[2016-12-24] MEDS: LORAZEPAM 2 MG/ML INJECTION IV PRN ×3 (09:58→20:16)
[2016-12-24] MEDS ORDERED: acetaZOLAMIDE 250 MG TABLET PO ONE (10:15)
--- NOTE | 2016-12-24 11:26 | PNPDOC ---
Subjective Date DATE: 12/24/16 TIME: 11:16 Subjective F/U: Pneumonia, acute respiratory failure with hypoxia About the same. Breathing still very short and congested. Cough, but not able to mobilize sputum. Chest wall sore from coughing. Very tired and fatigued-did sleep okay last night, but just washed out this am. No chest pressure or heaviness. No nausea. Eating okay. Ab with slight bloating-feels like she needs to have bowel movement. Urinating well. No f/c. Objective Vital Signs Vital signs Vital Signs Date Time Temp Pulse Resp B/P Pulse Ox O2 Delivery O2 Flow Rate FiO2 12/24/16 10:43 89 170/77 12/24/16 09:30 20 12/24/16 07:35 96.0 94 Nasal Cannula 5.00 Height (Feet): 5 Height (Inches): 0.00 Weight (Kilograms): 82.300 General General Appearance: Alert, Obese, Orientated x 3, Well Nourished, Well Developed, Cooperative, Mild Distress, Other (Looks very tired ) Eyes (Brief) Eyes: FOUND: EOMI, PERRL, NOT FOUND: scleral icterus ENMT (Brief) ENMT: FOUND: hearing intact, mucosa moist (No thrush ) Neck (Brief) Neck: FOUND: midline, NOT FOUND: nuchal rigidity, spasm Respiratory (Brief) Respiratory: FOUND: other (Mild conversational dyspnea despite O2. ), NOT FOUND : clear all mott (Coarse upper airway noises. ), wheezes Cardiovascular (Brief) Cardiac: FOUND: regular rate, regular rhythm, NOT FOUND: pedal edema Abdomen (Brief) Abdominal: FOUND: soft, NOT FOUND: BS normo active x4 (Decreased ), distended, tender Extremities (Brief) Extremity : Side: Bilateral Extremity: leg Extremity Finding: NOT FOUND: edema Musculoskeletal (Brief) Musculoskeletal: FOUND: extremities move equally, NOT FOUND: deformity, spasm Integumentary (Brief) Integumentary: FOUND: dry, warm Neurologic (Brief) Neurological: FOUND: cranial 2-12 intact, motor (Intact ) Psychiatric (Brief) Psychiatric: FOUND: alert, attentive, normal affect, oriented, other (Looks tired and weak. ) Laboratory Laboratory Laboratory Tests 12/24/16 04:29 Laboratory Tests 12/24/16 04:29 Assessment & Plan Problems: (1) Pneumonia Status: Acute Qualifiers: Pneumonia type: due to unspecified organism Laterality: right Lung location: lower lobe of lung Qualified Codes: J18.1 - Lobar pneumonia, unspecified organism (2) Acute respiratory failure with hypoxia Status: Acute Assessment & Plan: present on admission. (3) COPD exacerbation Status: Acute (4) Atrial fibrillation with rapid ventricular response Status: Resolved Assessment & Plan: Onset 12/23 (5) Leukocytosis Status: Resolved Assessment & Plan: present on admission. (6) Hypernatremia Status: Resolved Assessment & Plan: present on admission. (7) HTN (hypertension) Status: Chronic (8) Atrial fibrillation, currently in sinus rhythm Status: Chronic Assessment & Plan: POA - RVR developed on 12/23 (9) Moderate to severe pulmonary hypertension Status: Chronic (10) Anxiety Status: Chronic (11) GERD (gastroesophageal reflux disease) Status: Chronic (12) Obesity (BMI 30-39.9) Status: Chronic Plan/Intensity of Service Converted to NSR yesterday evening. Will continue with Digoxin. Change Norvasc to Cardizem 180mg to help BP and HR. Diamox 500mg today to help motivate fluid and minimize contraction alkalosis. Continue Levaquin 750mg IV daily for antimicrobial coverage. Day #6. Continue Solu-Medrol to 62.5mg IV q 6 hours. Continue with DuoNeb and budesonide. Continue Acapella. Encourage deep breathing for gas exchange. Continue with supplemental O2, using lowest flow to keep sats 89-91%. Recheck CXR in am. Repeat BMP in am due to medication use. Time spent with patient care 35 minutes. DVT Prophylaxis: SCD'S Code Status Full Code Hospital Course Summary Disclaimer The hospital course summary below is not to be considered part of the above Progress Note. Hospital Course Summary 12/19/16: Marc ADMIT - Assessment/Plan. Acute respiratory failure with hypoxia: * Admit to inpatient status under the care of Dr. Jarrett. * Monitor respiratory function closely with continuous pulse oximetry. * SCDs for DVT prophylaxis. Pneumonia, acute with leukocytosis (WBC 11.5 on admission): * CXR in ED showed increased prominence of right basilar airspace opacity, some of which is chronic although maybe superimposed atelectasis or pneumonia. * Levaquin 750mg IV daily initiated in ED for coverage of pulmonary pathogens. Blood cultures pending; monitor sensitivities. Will try and obtain sputum culture. * Acapella for pulmonary toileting. * Mucinex for mucolytic effect. * Respiratory support including breathing treatments - DuoNeb QID and PRN and budesonide BID. * Tessalon pearls and Ricola for cough. * Routine medications for bowel motivation. * Recheck CBC and BMP in AM to monitor blood counts, electrolytes and renal function. Acute COPD exacerbation: * Solu-medrol 125mg IV Q6H for pulmonary inflammation. Consider changing to oral prednisone when more stable. * Influenza swab negative. Will check respiratory panel now. Hypernatremia: * Initiate NS 75cc/hr for gentle hydration. Monitor closely for signs of fluid overload with daily weights. Hypertension, chronic: * Continue home Norvasc and Lasix; monitor blood pressure closely. History of a-fib, currently sinus rhythm: * Monitor closely on telemetry. Moderate to severe pulmonary hypertension: * Echocardiogram from 05/05/2014 - normal VL systolic function with EF 70%; biatrial dilation, mitral sclerosis and mild mitral regurg, mild tricuspid regurg with severe pulmonary hypertension with estimated pulmonary artery systolic pressure of 73. GERD: * Continue home Prevacid for GI protection and GERD. Anxiety, chronic: * Ativan as needed for anxiety. Obesity: Upon discharge, patient's care will be returned to her PCP, Dr. Santiago. 12/20 Doing a little better. Feels able to breath slightly better. Still with significant cough and congestion, not mobilizing sputum. Notes frontal NGO - feels from all the coughing. No nausea or ab pain. Eating well. Passing flatus. Urinating well. Did go for walk this am, but O2 saturations decreased to the 80' s. Potassium with increase, but with significant hemolysis. Continue Levaquin 750mg IV daily for antimicrobial coverage. Continue with Steroids and Neb treatments. Decrease IVF to 50cc/hr. Continue supplemental O2, weaning as able. Encourage ambulation as able. Will hold on am lab tomorrow due to pt's request. 12/21 Rough night-slept poorly. More SOA and O2 needed to be increased. Continued cough. Minimal sputum production. Does feel lungs starting to loosen up slightly. Eating well without nausea or ab pain. Did have bowel movement. Tongue starting to feel sore - worries about developing thrush. Urinating well. Did ambulate this am. Continue Levaquin 750mg IV daily for antimicrobial coverage. Day #3. Continue with Steroids and Neb treatments. Continue acapella use. Continue with supplemental O2. May d/c IVF as taking po well. Will place PICC line as having difficulty maintaining IV access. Start Mycelex to decrease risk of thrush - antibiotics and steroids risk factors. Encourage ambulation as able. Recheck BMP in am to assess electrolytes and renal status in light of medication use. Recheck CBC in am due to pneumonia CXR PA/Lat in am for F/U of infiltrate. 24 Feeling making gains. Did sleep better last night-still very tired and weak this am. Cough with decrease, not mobilizing sputum. Feels less SOA and congested. Eating well. Mouth much less discomfortable. Bowels moving. Working on ambulating to keep strength up. No f/c. Urinating well. Continue Levaquin 750mg IV daily for antimicrobial coverage. Day #4. Solu-Medrol continues Continue with DuoNeb and budesonide. Pt using Acapella routinely and finds is helpful. Continue with supplemental O2 - wean as able. Encourage ambulation to increase functional status. /25 More SOA today. O2 needs increased. Cough, but no sputum. No chest pain or pain with breathing. Not with nausea or ab pain. More tired and weak today. HR did increase around noon. EKG showing Afib with RVR. Diltiazem bolus of 5mgx1 and then 10mgx1 given without decrease in HR. Digoxin 0.5mg IV x1 given Monitor HR - if not decreasing will need to transfer to CCU for diltiazem drip. Continue Levaquin 750mg IV daily for antimicrobial coverage. Day #5. Decrease Solu-Medrol to 62.5mg IV q 6 hours. Continue with DuoNeb and budesonide. Continue Acapella. Continue with supplemental O2. 12/24 About the same. Breathing still very short and congested. Cough, but not able to mobilize sputum. Chest wall sore from coughing. Very tired and fatigued-did sleep okay last night, but just washed out this am. No chest pressure or heaviness. No nausea. Eating okay. Ab with slight bloating-feels like she needs to have bowel movement. Urinating well. No f/c. Converted to NSR yesterday evening. Will continue with Digoxin. Change Norvasc to Cardizem 180mg to help BP and HR. Diamox 500mg today to help motivate fluid and minimize contraction alkalosis. Continue Levaquin 750mg IV daily for antimicrobial coverage. Day #6. Continue Solu-Medrol to 62.5mg IV q 6 hours. Continue with DuoNeb and budesonide. Continue Acapella. Encourage deep breathing for gas exchange. Continue with supplemental O2, using lowest flow to keep sats 89-91%. Recheck CXR in am. Repeat BMP in am due to medication use. ALIREZA JARRETT MD Dec 24, 2016 11:19
[2016-12-24] MEDS: LEVOFLOXACIN 750 mg IVPB 750 MG in D5W 150 ML IV SCH (12:18)
--- NOTE | 2016-12-24 17:50 | NUR ---
status Pt A/O x3, V/S stable. Weaning O2, after ambulating requiring more, constant changing of O2 during the day. Pt able to adjust the O2 as needed. Pt denies pain and no PRN pain meds given. PRN ativan given 2xs, pt stated it helps with breathing and rest. Urine output good, no BM this shift. Using PRN cough syrup and tesslon perls to help control coughing.
--- NOTE | 2016-12-24 18:19 | NUR ---
meds Pt received new cardiac meds during the day. Pt was given teaching and instructed to call if any chest discomfort. Pt denies any chest pain.
[2016-12-24] MEDS: GABAPENTIN 600 MG TABLET PO SCH (20:14)
[2016-12-24] MEDS: ACETAMINOPHEN 500 MG TABLET PO PRN (20:15)
--- NOTE | 2016-12-24 20:20 | NUR ---
PRN PT WAS GIVEN TYLENOL FOR HEADACHE AND ATIVAN FOR ANXIETY PER HER REQUEST. PT ALERT AND ORIENTED. DENIED ANY PAIN. EDUCATED ABOUT CALL LIGHT USE AND SAFETY. AMBULATE HERSELF TO THE BATHROOM. ON O2 3-5 L/NC DEPENDING ON ACTIVITY.
--- NOTE | 2016-12-24 22:25 | NUR ---
PRN. PT WAS GIVEN LIQUID COUGH MEDICATION PER HER REQUEST. REPORTED HEADACHE HAS BEEN RESOLVED. WILL CONTINUE TO MONITOR.
[2016-12-25] VITALS (9 sets, daily range): BP systolic 148–164; BP diastolic 66–85; PULSE 74–92; RESP 16–24; TEMP 96.7–96.9; O2SAT 90–98
[2016-12-25 05:43] LABS: HCT - HEMATOCRIT 39.4 % (36-46); HGB - HEMOGLOBIN 12.8 GM/DL (12-16); MEAN CORPUSCULAR HGB 29.5 UUG (26-34); MEAN CORPUSCULAR HGB CONC(MCHC 32.5 GM/DL (31-37); MEAN CORPUSCULAR VOLUME 90.8 UM3 (80-100); MEAN PLATELET VOLUME 9.9 UM3 (9.4-12.4); RED BLOOD COUNT 4.34 M/MM3 (4.00-5.20); WBC - WHITE BLOOD COUNT 7.2 T/MM3 (4.5-11.0)
[2016-12-25] MEDS: CLOTRIMAZOLE 10 MG TROCHE PO SCH ×5 (05:51→23:00)
[2016-12-25 05:54] LABS: ALBUMIN 3.2 G/DL (3.5-5.0); ALBUMIN/GLOBULIN RATIO 1.4 RATIO (1.1-2.2); ALKALINE PHOSPHATASE 70 U/L (38-126); ALT (SGPT) 40 U/L (9-52); ANION GAP 7 MEQ/L (5-15); AST (SGOT) 21 U/L (14-36); BUN/CREATININE RATIO 31 RATIO (6-26); CALCIUM 9.3 MG/DL (8.4-10.2); CHLORIDE 102 MEQ/L (98-107); CO2 - CARBON DIOXIDE 31 MEQ/L (22-30); GLOMERULAR FILTRATION RATE 54; GLUCOSE 190 MG/DL (65-110); POTASSIUM 3.7 MEQ/L (3.6-5); SODIUM 140 MEQ/L (134-144); TOTAL PROTEIN 5.5 G/DL (6.3-8.2)
[2016-12-25 06:04] LABS: DIGOXIN 1.2 NG/ML (0.8-2.0)
[2016-12-25 06:18] LABS: LYMPHOCYTES # (MANUAL) 0.4 T/MM3 (1-4.8); MONOCYTES # (MANUAL) 0.1 T/MM3 (0-0.8); NEUTROPHILS #(MANUAL)-ABSOLUTE 6.6 T/MM3 (1.8-7.7); TOTAL CELLS COUNTED 100 %
[2016-12-25 06:23] LABS: THYROID STIM HORMONE-TSH 0.09 MIU/L (0.47-4.68)
[2016-12-25] MEDS: BUDESONIDE INH.SOLN. 0.5mg/2ml NEB AEROSOL SCH ×2 (07:26→19:13)
[2016-12-25] MEDS: ALBUTEROL/IPRATROPIUM INHAL. 2.5mg-0.5mg/3ml Neb. AEROSOL SCH ×4 (07:26→19:13)
--- NOTE | 2016-12-25 07:53 | NUR ---
SUMMARY PT SLEPT ON AND OFF WITH EPISODES OF COUGHING. PT ALERT AND ORIENTED X 3. DENIED ANY PAIN. AMBULATES SELF TO THE BATHROOM. PT WAS EDUCATED ABOUT CALL LIGHT USE AND PT SAFETY. ABLE TO VOICE NEEDS TO THE STAFFS.
--- NOTE | 2016-12-25 09:21 | DI ---
INDICATION: ITS.REASON: F/U PROCEDURE: CHEST 2-VIEWS UPRIGHT (PA \T\ LAT) Encounter: Subsequent COMPARISON: Two-view chest, 12/22/2016 FINDINGS: Continued right basal infiltrate or atelectasis. Plate of atelectasis in the left base. Lungs otherwise clear. There is no pleural effusion or pneumothorax. The heart size, mediastinal contours and pulmonary vascularity are within normal limits. There is no significant skeletal abnormality. Monitor leads overlie the chest. IMPRESSION: Bibasal opacities most in keeping with atelectasis, slightly progressive. .
[2016-12-25] MEDS: DOCUSATE SODIUM 100 MG CAPSULE PO SCH ×2 (09:36→20:26)
[2016-12-25] MEDS: ASPIRIN 81 MG CHEWABLE TABLET PO SCH (09:36)
[2016-12-25] MEDS: ALLOPURINOL 100 MG TABLET PO SCH (09:36)
[2016-12-25] MEDS: LANSOPRAZOLE SOLU-TAB 15 MG TABLET PO SCH ×2 (09:36→20:26)
[2016-12-25] MEDS: CITALOPRAM 10mg TABLET PO SCH (09:37)
[2016-12-25] MEDS: DIGOXIN 125 MCG TABLET PO SCH (09:38)
[2016-12-25] MEDS: GUAIFENESIN DM 600mg/30mg TABLET PO SCH ×2 (09:38→20:26)
[2016-12-25] MEDS: DILTIAZEM CD 180 MG PO SCH (09:39)
[2016-12-25] MEDS: SALINE NASAL SPRAY 45ml EA NOSTRIL SCH ×4 (09:39→20:31)
[2016-12-25] MEDS: LORAZEPAM 2 MG/ML INJECTION IV PRN ×2 (10:01→20:30)
--- NOTE | 2016-12-25 10:36 | PNPDOC ---
ADDIS OBREGON V [employer] 12/25/16 1031: Subjective Date DATE: 12/25/16 TIME: 10:27 Subjective Delma is seen today in follow up for Pneumonia and COPD. She complains of feeling extremely weak today. She reports feeling "worn out" and she is worried about getting too weak while laying in the hospital as she wants to return home independly. Denies having any chest pain or GI complaints. Breathing is about the same. Dry coughing without production. Currently on 3-5 liters of oxygen. Usually uses 2 liters of oxygen at night only. BP 143/71. Objective Vital Signs Vital signs Vital Signs Date Time Temp Pulse Resp B/P Pulse Ox O2 Delivery O2 Flow Rate FiO2 12/25/16 09:38 82 12/25/16 07:29 95 Nasal Cannula 3.00 12/25/16 07:29 20 12/24/16 23:53 96.6 143/71 Height (Feet): 5 Height (Inches): 0.00 Weight (Kilograms): 82.300 General General Appearance: Alert, Orientated x 3, Cooperative, No Acute Distress Eyes (Brief) Eyes: FOUND: EOMI ENMT (Brief) ENMT: FOUND: mucosa moist, normal dentition, NOT FOUND: pharnyx erythema Neck (Brief) Neck: FOUND: midline, NOT FOUND: adenopathy, carotid bruits, tracheal deviation Respiratory (Brief) Respiratory: NOT FOUND: wheezes Comments Diminished with course breath sounds Cardiovascular (Brief) Cardiac: FOUND: regular rate, regular rhythm, NOT FOUND: murmur, pedal edema Capillary Refill: <2 sec Abdomen (Brief) Abdominal: FOUND: BS normo active x4, soft, NOT FOUND: distended, tender Extremities (Brief) Extremity : Side: Bilateral Extremity: leg Extremity Finding: FOUND: edema (mild) Lymphatic (Brief) Lymphatic: NOT FOUND: adenopathy Musculoskeletal (Brief) Musculoskeletal: NOT FOUND: tenderness Integumentary (Brief) Integumentary: FOUND: dry, pink, warm Neurologic (Brief) Neurological: FOUND: cranial 2-12 intact Psychiatric (Brief) Psychiatric: FOUND: alert, attentive, normal affect, oriented Laboratory Laboratory Laboratory Tests 12/24/16 04:29 12/25/16 05:21 Laboratory Tests 12/24/16 04:29 12/25/16 05:21 Assessment & Plan Problems: (1) Pneumonia Status: Acute Qualifiers: Pneumonia type: due to unspecified organism Laterality: right Lung location: lower lobe of lung Qualified Codes: J18.1 - Lobar pneumonia, unspecified organism (2) Acute respiratory failure with hypoxia Status: Acute Assessment & Plan: present on admission. (3) COPD exacerbation Status: Acute (4) Atrial fibrillation with rapid ventricular response Status: Resolved Assessment & Plan: Onset 12/23 (5) Leukocytosis Status: Resolved Assessment & Plan: present on admission. (6) Hypernatremia Status: Resolved Assessment & Plan: present on admission. (7) HTN (hypertension) Status: Chronic (8) Atrial fibrillation, currently in sinus rhythm Status: Chronic Assessment & Plan: POA - RVR developed on 12/23 (9) Moderate to severe pulmonary hypertension Status: Chronic (10) Anxiety Status: Chronic (11) GERD (gastroesophageal reflux disease) Status: Chronic (12) Obesity (BMI 30-39.9) Status: Chronic Plan/Intensity of Service 12/25/16 Overall fatigued and worn out. Discussed resting today and attempting to get up with PT tomorrow Continues in NSR on telemetry. Continue with Cardizem and digoxin Today is day 7 of Levaquin antibiotic Chest X-ray this morning does show a slight improvement in bibasilar atelectasis Continue with scheduled Solu-Medrol every 6 hours for pulmonary inflammation Continue with scheduled DuoNeb and budesonide. Continue Acapella. Will place PT/OT order for tomorrow Code Status Full Code Hospital Course Summary Disclaimer The hospital course summary below is not to be considered part of the above Progress Note. Hospital Course Summary 12/19/16: Marc ADMIT - Assessment/Plan. Acute respiratory failure with hypoxia: * Admit to inpatient status under the care of Dr. Jarrett. * Monitor respiratory function closely with continuous pulse oximetry. * SCDs for DVT prophylaxis. Pneumonia, acute with leukocytosis (WBC 11.5 on admission): * CXR in ED showed increased prominence of right basilar airspace opacity, some of which is chronic although maybe superimposed atelectasis or pneumonia. * Levaquin 750mg IV daily initiated in ED for coverage of pulmonary pathogens. Blood cultures pending; monitor sensitivities. Will try and obtain sputum culture. * Acapella for pulmonary toileting. * Mucinex for mucolytic effect. * Respiratory support including breathing treatments - DuoNeb QID and PRN and budesonide BID. * Tessalon pearls and Ricola for cough. * Routine medications for bowel motivation. * Recheck CBC and BMP in AM to monitor blood counts, electrolytes and renal function. Acute COPD exacerbation: * Solu-medrol 125mg IV Q6H for pulmonary inflammation. Consider changing to oral prednisone when more stable. * Influenza swab negative. Will check respiratory panel now. Hypernatremia: * Initiate NS 75cc/hr for gentle hydration. Monitor closely for signs of fluid overload with daily weights. Hypertension, chronic: * Continue home Norvasc and Lasix; monitor blood pressure closely. History of a-fib, currently sinus rhythm: * Monitor closely on telemetry. Moderate to severe pulmonary hypertension: * Echocardiogram from 05/05/2014 - normal VL systolic function with EF 70%; biatrial dilation, mitral sclerosis and mild mitral regurg, mild tricuspid regurg with severe pulmonary hypertension with estimated pulmonary artery systolic pressure of 73. GERD: * Continue home Prevacid for GI protection and GERD. Anxiety, chronic: * Ativan as needed for anxiety. Obesity: Upon discharge, patient's care will be returned to her PCP, Dr. Santiago. 12/20 Doing a little better. Feels able to breath slightly better. Still with significant cough and congestion, not mobilizing sputum. Notes frontal NGO - feels from all the coughing. No nausea or ab pain. Eating well. Passing flatus. Urinating well. Did go for walk this am, but O2 saturations decreased to the 80' s. Potassium with increase, but with significant hemolysis. Continue Levaquin 750mg IV daily for antimicrobial coverage. Continue with Steroids and Neb treatments. Decrease IVF to 50cc/hr. Continue supplemental O2, weaning as able. Encourage ambulation as able. Will hold on am lab tomorrow due to pt's request. 12/21 Rough night-slept poorly. More SOA and O2 needed to be increased. Continued cough. Minimal sputum production. Does feel lungs starting to loosen up slightly. Eating well without nausea or ab pain. Did have bowel movement. Tongue starting to feel sore - worries about developing thrush. Urinating well. Did ambulate this am. Continue Levaquin 750mg IV daily for antimicrobial coverage. Day #3. Continue with Steroids and Neb treatments. Continue acapella use. Continue with supplemental O2. May d/c IVF as taking po well. Will place PICC line as having difficulty maintaining IV access. Start Mycelex to decrease risk of thrush - antibiotics and steroids risk factors. Encourage ambulation as able. Recheck BMP in am to assess electrolytes and renal status in light of medication use. Recheck CBC in am due to pneumonia CXR PA/Lat in am for F/U of infiltrate. 12/22 Feeling making gains. Did sleep better last night-still very tired and weak this am. Cough with decrease, not mobilizing sputum. Feels less SOA and congested. Eating well. Mouth much less discomfortable. Bowels moving. Working on ambulating to keep strength up. No f/c. Urinating well. Continue Levaquin 750mg IV daily for antimicrobial coverage. Day #4. Solu-Medrol continues Continue with DuoNeb and budesonide. Pt using Acapella routinely and finds is helpful. Continue with supplemental O2 - wean as able. Encourage ambulation to increase functional status. 12/23 More SOA today. O2 needs increased. Cough, but no sputum. No chest pain or pain with breathing. Not with nausea or ab pain. More tired and weak today. HR did increase around noon. EKG showing Afib with RVR. Diltiazem bolus of 5mgx1 and then 10mgx1 given without decrease in HR. Digoxin 0.5mg IV x1 given Monitor HR - if not decreasing will need to transfer to CCU for diltiazem drip. Continue Levaquin 750mg IV daily for antimicrobial coverage. Day #5. Decrease Solu-Medrol to 62.5mg IV q 6 hours. Continue with DuoNeb and budesonide. Continue Acapella. Continue with supplemental O2. 12/24 About the same. Breathing still very short and congested. Cough, but not able to mobilize sputum. Chest wall sore from coughing. Very tired and fatigued-did sleep okay last night, but just washed out this am. No chest pressure or heaviness. No nausea. Eating okay. Ab with slight bloating-feels like she needs to have bowel movement. Urinating well. No f/c. Converted to NSR yesterday evening. Will continue with Digoxin. Change Norvasc to Cardizem 180mg to help BP and HR. Diamox 500mg today to help motivate fluid and minimize contraction alkalosis. Continue Levaquin 750mg IV daily for antimicrobial coverage. Day #6. Continue Solu-Medrol to 62.5mg IV q 6 hours. Continue with DuoNeb and budesonide. Continue Acapella. Encourage deep breathing for gas exchange. Continue with supplemental O2, using lowest flow to keep sats 89-91%. Recheck CXR in am. Repeat BMP in am due to medication use. 12/25/16 Overall fatigued and worn out. Discussed resting today and attempting to get up with PT tomorrow Continues in NSR on telemetry. Continue with Cardizem and digoxin Today is day 7 of Levaquin antibiotic Chest X-ray this morning does show a slight improvement in bibasilar atelectasis Continue with scheduled Solu-Medrol every 6 hours for pulmonary inflammation Continue with scheduled DuoNeb and budesonide. Continue Acapella. Will place PT/OT order for tomorrow ALIREZA JARRETT MD 12/25/16 1453: Assessment & Plan Plan/Intensity of Service Have independently interviewed and examined pt. Chart reviewed. Case discussed with my [employer]. Care plan developed with my supervision; agree with above. Rough day. Very tired. No strength/energy. Not feeling able to be up much. Did sleep okay last night. Less appetite. No nausea or ab pain. Stools stable-not getting loose or too urgent. No chest pressure or palpations. No f/c. Lungs: decreased and congested bilaterally; continued wheezing. Less conversational dyspnea as compared to yesterday. CV: regular Ab; soft nt/nd +BS Ext: trace edema. MSE: awake alert appropriate GEN: looks very weak and tired Plan: Continue Levaquin for antimicrobial coverage. Steroids decreased yesterday. HR improved - continue with Cardizem to help hr and BP; can stop digoxin. Monitor HR. Encourage activities - not sure how much she will be able to do today, hope for more activities tomorrow. Will need home O2 at discharge ( met qualification at last discharge, but had not been using at home except for at night). Time spent with pt care 35 minutes. DVT Prophylaxis: SCD'S ADDIS OBREGON APRN Dec 25, 2016 10:31 ALIREZA JARRETT MD Dec 25, 2016 14:53
[2016-12-25] MEDS: LEVOFLOXACIN 750 mg IVPB 750 MG in D5W 150 ML IV SCH (13:39)
[2016-12-25] MEDS: ACETAMINOPHEN 500 MG TABLET PO PRN (15:06)
--- NOTE | 2016-12-25 20:09 | NUR ---
Shift summary. Patient alert and oriented x3. Did not want to walk in halls this shift. PT and OT ordered. Patient aware. Midline to left upper extremity patent. Patient up ad rema to the bathroom. Appetite good. Short of breath with activity. O2 at 3 liters. Lungs coarse and with wheezes, loose sounding cough. Tylenol for headache this afternoon with stated relief.
[2016-12-25] MEDS: GABAPENTIN 100 MG CAPSULE PO PRN ×2 (20:28→20:31)
[2016-12-25] MEDS: PROMETHAZINE/CODEINE ORAL SYRUP PO PRN (20:29)
[2016-12-25] MEDS: BENZONATATE 200 MG CAPSULE PO PRN (20:29)
[2016-12-25] MEDS: GABAPENTIN 600 MG TABLET PO SCH (20:32)
[2016-12-26] VITALS (10 sets, daily range): BP systolic 150–157; BP diastolic 70–71; PULSE 85–88; RESP 16–20; TEMP 96.4–97.6; O2SAT 90–96
[2016-12-26] MEDS: ALBUTEROL/IPRATROPIUM INHAL. 2.5mg-0.5mg/3ml Neb. AEROSOL PRN (05:12)
--- NOTE | 2016-12-26 05:25 | NUR ---
END OF SHIFT SUMMARY: Alert and orientated. Had PRN: Tesslon Pearls; Phenergan with Codeine and Ativan at HS last evening. Slept well. Awakened at 3am when scheduled solu medrol was given; then this morning at 5AM when V/S checked. Deep cough, non productive causing some discomfort in her chest. HOB elevated. O2 @ 3L. SPO2 is 94%. V/S checked. 98.2; 98; 24; 163/81; . Phone call to Resp. Therapy. PRN Breathing treatment administered by Resp. Therapist. Pt. reports easier breathing and chest discomfort much less after breathing tx. Pt. asks for cup of coffee. Coffee brought.
[2016-12-26 05:44] LABS: HCT - HEMATOCRIT 39.3 % (36-46); HGB - HEMOGLOBIN 12.7 GM/DL (12-16); MEAN CORPUSCULAR HGB 29.3 UUG (26-34); MEAN CORPUSCULAR HGB CONC(MCHC 32.3 GM/DL (31-37); MEAN CORPUSCULAR VOLUME 90.6 UM3 (80-100); MEAN PLATELET VOLUME 10.2 UM3 (9.4-12.4); RED BLOOD COUNT 4.34 M/MM3 (4.00-5.20); WBC - WHITE BLOOD COUNT 8.2 T/MM3 (4.5-11.0)
[2016-12-26 05:53] LABS: ANION GAP 5 MEQ/L (5-15); BUN/CREATININE RATIO 28 RATIO (6-26); CALCIUM 9.1 MG/DL (8.4-10.2); CHLORIDE 102 MEQ/L (98-107); CO2 - CARBON DIOXIDE 31 MEQ/L (22-30); CREATININE 1.1 MG/DL (0.7-1.2); GLOMERULAR FILTRATION RATE 48; GLUCOSE 181 MG/DL (65-110); POTASSIUM 3.9 MEQ/L (3.6-5); SODIUM 138 MEQ/L (134-144)
[2016-12-26] MEDS: CLOTRIMAZOLE 10 MG TROCHE PO SCH ×5 (06:06→22:23)
[2016-12-26 06:20] LABS: LYMPHOCYTES # (MANUAL) 0.3 T/MM3 (1-4.8); MONOCYTES # (MANUAL) 0.2 T/MM3 (0-0.8); NEUTROPHILS #(MANUAL)-ABSOLUTE 7.7 T/MM3 (1.8-7.7); TOTAL CELLS COUNTED 100 %
[2016-12-26] MEDS: BUDESONIDE INH.SOLN. 0.5mg/2ml NEB AEROSOL SCH ×2 (07:02→21:32)
[2016-12-26] MEDS: ALBUTEROL/IPRATROPIUM INHAL. 2.5mg-0.5mg/3ml Neb. AEROSOL SCH ×4 (07:02→21:32)
[2016-12-26] MEDS: CITALOPRAM 10mg TABLET PO SCH (07:27)
[2016-12-26] MEDS: GUAIFENESIN DM 600mg/30mg TABLET PO SCH ×2 (07:27→22:17)
[2016-12-26] MEDS: DILTIAZEM CD 180 MG PO SCH (07:27)
[2016-12-26] MEDS: ASPIRIN 81 MG CHEWABLE TABLET PO SCH (07:27)
[2016-12-26] MEDS: DOCUSATE SODIUM 100 MG CAPSULE PO SCH ×2 (07:27→22:17)
[2016-12-26] MEDS: SALINE NASAL SPRAY 45ml EA NOSTRIL SCH ×4 (07:28→22:20)
[2016-12-26] MEDS: ALLOPURINOL 100 MG TABLET PO SCH (07:28)
[2016-12-26] MEDS: LANSOPRAZOLE SOLU-TAB 15 MG TABLET PO SCH ×2 (07:28→22:17)
[2016-12-26] MEDS: PROMETHAZINE/CODEINE ORAL SYRUP PO PRN ×2 (07:29→22:19)
--- NOTE | 2016-12-26 07:55 | NUR ---
Status Pt alert and oriented. Pt continues to have harsh-sounding cough. Phenergan with codeine given for cough. O2 sat 94% with O2 at 3L per nc. Lungs diminished/coarse sounding through-out. Pt denies pain except with coughing. Will continue to monitor.
[2016-12-26] MEDS: LEVOFLOXACIN 750 mg IVPB 750 MG in D5W 150 ML IV SCH (11:39)
[2016-12-26] MEDS: LORAZEPAM 2 MG/ML INJECTION IV PRN (12:25)
--- NOTE | 2016-12-26 12:25 | NUR ---
STATUS PT CONTINUES TO C/O FEELING EXHAUSTED. PT SLEEPS BETWEEN CARES AND THEN AT TIMES DOES NOT KNOW WHAT TIME OF DAY IT IS UPON AWAKING. VITALS OBTAINED AND STABLE CHARTED. O2 SAT 90-91% WITH O2 AT 3L PER NC. ATIVAN 0.5 MG IV GIVEN AT PT REQUEST FOR "PANIC" FEELING WITH HER COUGH. STATUS UPDATE GIVEN TO DR. JOHNSON. WILL CONTINUE TO MONITOR.
--- NOTE | 2016-12-26 16:32 | PNPDOC ---
Subjective Date DATE: 12/26/16 TIME: 16:23 Subjective The patient was seen today accompanied by her daughter, Kelly. The patient states she's been feeling heavy in her chest for about 3 days and then describes it as more congestion. She has some pleuritic pain if she takes a deep breath or coughs. She continues to have a nonproductive cough. She feels like she needs to cough something up however. She is eating and drinking okay. She feels very exhausted and states she can't sleep well at night because of interruptions frequently for vital signs were labs. She was able to get up and walk with physical therapy and had no chest pain or shortness of breath. She states overall she is feeling a little bit better every day. She is urinating without difficulties. She had a bowel movement today. Patient has a suppressed TSH. She states she does not have history of any thyroid problems that she is aware of. She does not take any thyroid medications. There is no family history of any thyroid problems. Objective Vital Signs Vital signs Vital Signs Date Time Temp Pulse Resp B/P Pulse Ox O2 Delivery O2 Flow Rate FiO2 12/26/16 14:39 72 12/26/16 14:36 16 96 12/26/16 12:23 97.5 12/26/16 11:46 150/71 Nasal Cannula 3.00 Weight is stable at 85 kg GEN-alert, oriented, no acute distress HEENT-clear and anicteric, oropharynx is moist NECK-supple without lymphadenopathy or thyromegaly CV-regular rate and rhythm CHEST-mild wheezing bilaterally, deep inspiration elicits a cough, decreased breath sounds in the bases ABD-soft, nontender, nondistended with positive bowel sounds -no Jacome EXT-no edema NEURO-focal deficits SKIN-warm and dry and without rashes Height (Feet): 5 Height (Inches): 0.00 Weight (Kilograms): 85.300 Laboratory Laboratory Laboratory Tests 12/25/16 05:21 12/26/16 05:10 Laboratory Tests 12/25/16 05:21 12/26/16 05:10 TSH yesterday 0.09 Assessment & Plan Problems: (1) Pneumonia Status: Acute Qualifiers: Pneumonia type: due to unspecified organism Laterality: right Lung location: lower lobe of lung Qualified Codes: J18.1 - Lobar pneumonia, unspecified organism (2) Acute respiratory failure with hypoxia Status: Acute Assessment & Plan: present on admission. (3) COPD exacerbation Status: Acute (4) Atrial fibrillation with rapid ventricular response Status: Resolved Assessment & Plan: Onset 12/23 (5) Leukocytosis Status: Resolved Assessment & Plan: present on admission. (6) Hypernatremia Status: Resolved Assessment & Plan: present on admission. (7) HTN (hypertension) Status: Chronic (8) Atrial fibrillation, currently in sinus rhythm Status: Chronic Assessment & Plan: POA - RVR developed on 12/23 (9) Moderate to severe pulmonary hypertension Status: Chronic (10) Anxiety Status: Chronic (11) GERD (gastroesophageal reflux disease) Status: Chronic (12) Obesity (BMI 30-39.9) Status: Chronic Assessment 12/26/2016-Dr. Davidson Acute hypoxic respiratory failure-currently requiring 3 L Pneumonia-improving, day 7 Levaquin, change to oral. Check chest x-ray tomorrow COPD exacerbation-requiring 3 L of oxygen, was only needing 2 L at night at home. Change to oral steroids. Continue breathing treatments. Continue incentive spirometer and Acapella. A. fib with RVR-resolved Suppressed TSH-check free T3 and free T4 Leukocytosis-resolved Anxiety-change lorazepam to by mouth Questionable chest tightness-check EKG and troponin, doubt cardiac PT saw the patient and recommended home with home health. OT recommended home. Hyperglycemia-likely secondary to steroids, change to ADA diet Possibly home in the next 1-2 days. Discussed with the patient's daughter. Discussed with case management. Greater than 35 minutes of time spent seeing and evaluating the patient, reviewing chart, and determining care plan. DVT Prophylaxis: SCD'S Code Status Full Code Hospital Course Summary Disclaimer The hospital course summary below is not to be considered part of the above Progress Note. Hospital Course Summary 12/19/16: Marc ADMIT - Assessment/Plan. Acute respiratory failure with hypoxia: * Admit to inpatient status under the care of Dr. Jarrett. * Monitor respiratory function closely with continuous pulse oximetry. * SCDs for DVT prophylaxis. Pneumonia, acute with leukocytosis (WBC 11.5 on admission): * CXR in ED showed increased prominence of right basilar airspace opacity, some of which is chronic although maybe superimposed atelectasis or pneumonia. * Levaquin 750mg IV daily initiated in ED for coverage of pulmonary pathogens. Blood cultures pending; monitor sensitivities. Will try and obtain sputum culture. * Acapella for pulmonary toileting. * Mucinex for mucolytic effect. * Respiratory support including breathing treatments - DuoNeb QID and PRN and budesonide BID. * Tessalon pearls and Ricola for cough. * Routine medications for bowel motivation. * Recheck CBC and BMP in AM to monitor blood counts, electrolytes and renal function. Acute COPD exacerbation: * Solu-medrol 125mg IV Q6H for pulmonary inflammation. Consider changing to oral prednisone when more stable. * Influenza swab negative. Will check respiratory panel now. Hypernatremia: * Initiate NS 75cc/hr for gentle hydration. Monitor closely for signs of fluid overload with daily weights. Hypertension, chronic: * Continue home Norvasc and Lasix; monitor blood pressure closely. History of a-fib, currently sinus rhythm: * Monitor closely on telemetry. Moderate to severe pulmonary hypertension: * Echocardiogram from 05/05/2014 - normal VL systolic function with EF 70%; biatrial dilation, mitral sclerosis and mild mitral regurg, mild tricuspid regurg with severe pulmonary hypertension with estimated pulmonary artery systolic pressure of 73. GERD: * Continue home Prevacid for GI protection and GERD. Anxiety, chronic: * Ativan as needed for anxiety. Obesity: Upon discharge, patient's care will be returned to her PCP, Dr. Santiago. 12/20 Doing a little better. Feels able to breath slightly better. Still with significant cough and congestion, not mobilizing sputum. Notes frontal NGO - feels from all the coughing. No nausea or ab pain. Eating well. Passing flatus. Urinating well. Did go for walk this am, but O2 saturations decreased to the 80' s. Potassium with increase, but with significant hemolysis. Continue Levaquin 750mg IV daily for antimicrobial coverage. Continue with Steroids and Neb treatments. Decrease IVF to 50cc/hr. Continue supplemental O2, weaning as able. Encourage ambulation as able. Will hold on am lab tomorrow due to pt's request. 12/21 Rough night-slept poorly. More SOA and O2 needed to be increased. Continued cough. Minimal sputum production. Does feel lungs starting to loosen up slightly. Eating well without nausea or ab pain. Did have bowel movement. Tongue starting to feel sore - worries about developing thrush. Urinating well. Did ambulate this am. Continue Levaquin 750mg IV daily for antimicrobial coverage. Day #3. Continue with Steroids and Neb treatments. Continue acapella use. Continue with supplemental O2. May d/c IVF as taking po well. Will place PICC line as having difficulty maintaining IV access. Start Mycelex to decrease risk of thrush - antibiotics and steroids risk factors. Encourage ambulation as able. Recheck BMP in am to assess electrolytes and renal status in light of medication use. Recheck CBC in am due to pneumonia CXR PA/Lat in am for F/U of infiltrate. 24 Feeling making gains. Did sleep better last night-still very tired and weak this am. Cough with decrease, not mobilizing sputum. Feels less SOA and congested. Eating well. Mouth much less discomfortable. Bowels moving. Working on ambulating to keep strength up. No f/c. Urinating well. Continue Levaquin 750mg IV daily for antimicrobial coverage. Day #4. Solu-Medrol continues Continue with DuoNeb and budesonide. Pt using Acapella routinely and finds is helpful. Continue with supplemental O2 - wean as able. Encourage ambulation to increase functional status. /25 More SOA today. O2 needs increased. Cough, but no sputum. No chest pain or pain with breathing. Not with nausea or ab pain. More tired and weak today. HR did increase around noon. EKG showing Afib with RVR. Diltiazem bolus of 5mgx1 and then 10mgx1 given without decrease in HR. Digoxin 0.5mg IV x1 given Monitor HR - if not decreasing will need to transfer to CCU for diltiazem drip. Continue Levaquin 750mg IV daily for antimicrobial coverage. Day #5. Decrease Solu-Medrol to 62.5mg IV q 6 hours. Continue with DuoNeb and budesonide. Continue Acapella. Continue with supplemental O2. 12/24 About the same. Breathing still very short and congested. Cough, but not able to mobilize sputum. Chest wall sore from coughing. Very tired and fatigued-did sleep okay last night, but just washed out this am. No chest pressure or heaviness. No nausea. Eating okay. Ab with slight bloating-feels like she needs to have bowel movement. Urinating well. No f/c. Converted to NSR yesterday evening. Will continue with Digoxin. Change Norvasc to Cardizem 180mg to help BP and HR. Diamox 500mg today to help motivate fluid and minimize contraction alkalosis. Continue Levaquin 750mg IV daily for antimicrobial coverage. Day #6. Continue Solu-Medrol to 62.5mg IV q 6 hours. Continue with DuoNeb and budesonide. Continue Acapella. Encourage deep breathing for gas exchange. Continue with supplemental O2, using lowest flow to keep sats 89-91%. Recheck CXR in am. Repeat BMP in am due to medication use. 12/25/16 Overall fatigued and worn out. Discussed resting today and attempting to get up with PT tomorrow Continues in NSR on telemetry. Continue with Cardizem and digoxin Today is day 7 of Levaquin antibiotic Chest X-ray this morning does show a slight improvement in bibasilar atelectasis Continue with scheduled Solu-Medrol every 6 hours for pulmonary inflammation Continue with scheduled DuoNeb and budesonide. Continue Acapella. Will place PT/OT order for tomorrow FOZIA DAVIDSON MD Dec 26, 2016 16:26
[2016-12-26] MEDS: LORAZEPAM 0.5 MG TABLET PO SCH (22:17)
[2016-12-26] MEDS: GABAPENTIN 600 MG TABLET PO SCH (22:18)
[2016-12-27] VITALS (9 sets, daily range): BP systolic 147–153; BP diastolic 61–74; PULSE 74–81; RESP 16–20; TEMP 96.4–96.9; O2SAT 91–95
[2016-12-27] MEDS: BENZONATATE 200 MG CAPSULE PO PRN (01:12)
[2016-12-27] MEDS: HYDROCODONE/APAP 5 mg/325 mg TABLET PO PRN (01:13)
[2016-12-27] MEDS: LORAZEPAM 0.5 MG TABLET PO PRN (01:18)
[2016-12-27 01:46] LABS: FREE T4 (FREE THYROXINE)-BATCH 0.52 NG/DL (0.78-2.19)
[2016-12-27 01:47] LABS: T3 FREE - BATCH 1.88 PG/ML (2.77-5.27)
--- NOTE | 2016-12-27 03:01 | NUR ---
SUMMARY PT ALERT AND ORIENTED. PT HAS REPORTED BEING ANXIOUS 2 TIMES DURING SHIFT, THE FIRST TIME SHE WAS GIVEN HR BEDTIME LORAZEPAM 0.5MG, THE SECOND SHE WAS GIVEN A PRN LORAZEPAM 0.5MG. NO FURTHER ANXIETY REPORTED. PT HAS ALSO REPORTED A HEADACHE RATED 7/10, NORCO 5/325 WAS ADMINISTERED ORDERED. PT IS UP AD MATTY IN HER ROOM. PT HAS A LOCKED MIDLINE IN THE UPPER LT ARM, FLUSHES AND ASPIRATES WELL.
[2016-12-27 05:55] LABS: HCT - HEMATOCRIT 35.6 % (36-46); HGB - HEMOGLOBIN 11.6 GM/DL (12-16); MEAN CORPUSCULAR HGB 29.2 UUG (26-34); MEAN CORPUSCULAR HGB CONC(MCHC 32.6 GM/DL (31-37); MEAN CORPUSCULAR VOLUME 89.7 UM3 (80-100); MEAN PLATELET VOLUME 10.6 UM3 (9.4-12.4); RED BLOOD COUNT 3.97 M/MM3 (4.00-5.20); WBC - WHITE BLOOD COUNT 7.3 T/MM3 (4.5-11.0)
[2016-12-27] MEDS: CLOTRIMAZOLE 10 MG TROCHE PO SCH ×5 (06:03→23:30)
[2016-12-27 06:36] LABS: BAND NEUTROPHILS # 0.1 T/MM3; LYMPHOCYTES # (MANUAL) 0.2 T/MM3 (1-4.8); MONOCYTES # (MANUAL) 0.3 T/MM3 (0-0.8); NEUTROPHILS #(MANUAL)-ABSOLUTE 6.7 T/MM3 (1.8-7.7); TOTAL CELLS COUNTED 100 %
[2016-12-27] MEDS: ALBUTEROL/IPRATROPIUM INHAL. 2.5mg-0.5mg/3ml Neb. AEROSOL SCH ×4 (06:55→19:00)
[2016-12-27] MEDS: BUDESONIDE INH.SOLN. 0.5mg/2ml NEB AEROSOL SCH ×2 (06:55→20:24)
--- NOTE | 2016-12-27 08:23 | DI ---
INDICATION: ITS.REASON: pneumonia and hypoxia PROCEDURE: CHEST 2-VIEWS UPRIGHT (PA \T\ LAT) Encounter: Initial COMPARISON: December 25, 2016 FINDINGS: Improving aeration of the right lower lobe with decreasing airspace disease. Remaining lung mott are stable and clear. There is no pleural effusion or pneumothorax. The heart size, mediastinal contours and pulmonary vascularity are unchanged. IMPRESSION: Improving right lower lobe pneumonia. .
[2016-12-27] MEDS: PredniSONE 10 MG TABLET PO SCH (08:34)
[2016-12-27] MEDS: DOCUSATE SODIUM 100 MG CAPSULE PO SCH ×2 (08:34→20:48)
[2016-12-27] MEDS: GUAIFENESIN DM 600mg/30mg TABLET PO SCH ×2 (08:34→20:48)
[2016-12-27] MEDS: ASPIRIN 81 MG CHEWABLE TABLET PO SCH (08:34)
[2016-12-27] MEDS: LANSOPRAZOLE SOLU-TAB 15 MG TABLET PO SCH ×2 (08:34→20:48)
[2016-12-27] MEDS: SALINE NASAL SPRAY 45ml EA NOSTRIL SCH ×4 (08:35→20:48)
[2016-12-27] MEDS: DILTIAZEM CD 180 MG PO SCH (08:35)
[2016-12-27] MEDS: ALLOPURINOL 100 MG TABLET PO SCH (08:35)
[2016-12-27] MEDS: CITALOPRAM 10mg TABLET PO SCH (08:35)
[2016-12-27 08:59] LABS: ALBUMIN 3.4 G/DL (3.5-5.0); ANION GAP 5 MEQ/L (5-15); BUN/CREATININE RATIO 29 RATIO (6-26); CALCIUM 9.2 MG/DL (8.4-10.2); CHLORIDE 100 MEQ/L (98-107); CO2 - CARBON DIOXIDE 33 MEQ/L (22-30); GLOMERULAR FILTRATION RATE 54; GLUCOSE 139 MG/DL (65-110); PHOSPHORUS 3.9 MG/DL (2.5-4.5); POTASSIUM 4.2 MEQ/L (3.6-5); SODIUM 138 MEQ/L (134-144)
[2016-12-27] MEDS: LEVOFLOXACIN 750 MG TABLET PO SCH (11:24)
[2016-12-27] MEDS: PROMETHAZINE/CODEINE ORAL SYRUP PO PRN ×2 (13:01→20:52)
--- NOTE | 2016-12-27 13:56 | NUR ---
SCARLETT PANTOJA VISITED PT. CM EXPLAINED ROLE AND PROVIDED CONTACT INFORMATION. PT PLANS TO RETURN HOME POST STAY AT [facility]. PT DOES WANT TO USE [facility] AT TIME OF D/C FROM [facility]. SCARLETT SPOKE WITH JUAN FROM HOME HEALTH AND SHE IS AWARE OF ANTICIPATED D/C FOR TOMORROW. PT DOES HAVE HOME OXYGEN SUPPLIED BY [facility]. PT IS AWARE TO CONTACT CM IF NEEDS ARISE.
--- NOTE | 2016-12-27 14:10 | PNPDOC ---
ADDIS OBREGON V [employer] 12/27/16 1409: Subjective Date DATE: 12/27/16 TIME: 14:07 Subjective Delma is seen twice throughout the day. She continues to have intermittent shortness of breath and coughing. She does reports that she has "congestion" in her chest that is only present with coughing spells. She is currently on 3 liters of oxygen with mild respiratory distress. Appetite is fair, no difficulty with urination and bowels are moving regularly. BP this morning 153/ 74. Objective Vital Signs Vital signs Vital Signs Date Time Temp Pulse Resp B/P Pulse Ox O2 Delivery O2 Flow Rate FiO2 12/27/16 12:06 72 12/27/16 11:55 22 95 12/27/16 11:55 3.00 12/27/16 08:00 96.4 153/74 Nasal Cannula Height (Feet): 5 Height (Inches): 0.00 Weight (Kilograms): 85.900 General General Appearance: Alert, Orientated x 3, Cooperative, No Acute Distress Eyes (Brief) Eyes: FOUND: EOMI ENMT (Brief) ENMT: FOUND: mucosa moist, normal dentition, NOT FOUND: pharnyx erythema Neck (Brief) Neck: FOUND: midline, NOT FOUND: adenopathy, carotid bruits, tracheal deviation Respiratory (Brief) Respiratory: NOT FOUND: wheezes Comments Diminished throughout Cardiovascular (Brief) Cardiac: FOUND: regular rate, regular rhythm, NOT FOUND: murmur, pedal edema Capillary Refill: <2 sec Abdomen (Brief) Abdominal: FOUND: BS normo active x4, soft, NOT FOUND: distended, tender Lymphatic (Brief) Lymphatic: NOT FOUND: adenopathy Musculoskeletal (Brief) Musculoskeletal: NOT FOUND: tenderness Integumentary (Brief) Integumentary: FOUND: dry, pink, warm Neurologic (Brief) Neurological: FOUND: cranial 2-12 intact Psychiatric (Brief) Psychiatric: FOUND: alert, attentive, normal affect, oriented Laboratory Laboratory Laboratory Tests 12/26/16 05:10 12/27/16 08:31 Laboratory Tests 12/26/16 05:10 12/27/16 04:20 Assessment & Plan Problems: (1) Pneumonia Status: Acute Qualifiers: Pneumonia type: due to unspecified organism Laterality: right Lung location: lower lobe of lung Qualified Codes: J18.1 - Lobar pneumonia, unspecified organism (2) Acute respiratory failure with hypoxia Status: Acute Assessment & Plan: present on admission. (3) COPD exacerbation Status: Acute (4) Atrial fibrillation with rapid ventricular response Status: Resolved Assessment & Plan: Onset 12/23 (5) Leukocytosis Status: Resolved Assessment & Plan: present on admission. (6) Hypernatremia Status: Resolved Assessment & Plan: present on admission. (7) HTN (hypertension) Status: Chronic (8) Atrial fibrillation, currently in sinus rhythm Status: Chronic Assessment & Plan: POA - RVR developed on 12/23 (9) Moderate to severe pulmonary hypertension Status: Chronic (10) Anxiety Status: Chronic (11) GERD (gastroesophageal reflux disease) Status: Chronic (12) Obesity (BMI 30-39.9) Status: Chronic Assessment Plan/Intensity of Service 12/27/16 In regards to acute on chronic respiratory failure, patient is currently requiring 3 liters of oxygen by nasal cannula chronically. She'll likely need to be discharged home on 24-hour oxygen. Today is day 8 of [facility]. Chest x-ray repeated this morning does show an improvement in right-sided pneumonia. Continue with oral steroids for acute pulmonary. Patient does voice concern of steroid taper as she feels that every time she is off of steroid she gets another exacerbation. She does have a medical referral coordinator, Dr. Ford in [employer]. May need to discuss discharge plan. Consult placed to Dr. Galdamez in regards to thyroid abnormalities. Appreciate his expertise in endocrinology. Serial troponins were evaluated, however, never elevated to a critical level. Likely chest "congestion"/pressure is pulmonary in nature We did discuss in great detail regarding her discharge plans. She does want to go home independently, however, agrees that she needs home health assistance. She would also like to have PT and OT for continued strengthening Will discuss further plan of care with Dr. Davidson Code Status Full Code Hospital Course Summary Disclaimer The hospital course summary below is not to be considered part of the above Progress Note. Hospital Course Summary 12/19/16: Marc ADMIT - Assessment/Plan. Acute respiratory failure with hypoxia: * Admit to inpatient status under the care of Dr. Jarrett. * Monitor respiratory function closely with continuous pulse oximetry. * SCDs for DVT prophylaxis. Pneumonia, acute with leukocytosis (WBC 11.5 on admission): * CXR in ED showed increased prominence of right basilar airspace opacity, some of which is chronic although maybe superimposed atelectasis or pneumonia. * Levaquin 750mg IV daily initiated in ED for coverage of pulmonary pathogens. Blood cultures pending; monitor sensitivities. Will try and obtain sputum culture. * Acapella for pulmonary toileting. * Mucinex for mucolytic effect. * Respiratory support including breathing treatments - DuoNeb QID and PRN and budesonide BID. * Tessalon pearls and Ricola for cough. * Routine medications for bowel motivation. * Recheck CBC and BMP in AM to monitor blood counts, electrolytes and renal function. Acute COPD exacerbation: * Solu-medrol 125mg IV Q6H for pulmonary inflammation. Consider changing to oral prednisone when more stable. * Influenza swab negative. Will check respiratory panel now. Hypernatremia: * Initiate NS 75cc/hr for gentle hydration. Monitor closely for signs of fluid overload with daily weights. Hypertension, chronic: * Continue home Norvasc and Lasix; monitor blood pressure closely. History of a-fib, currently sinus rhythm: * Monitor closely on telemetry. Moderate to severe pulmonary hypertension: * Echocardiogram from 05/05/2014 - normal VL systolic function with EF 70%; biatrial dilation, mitral sclerosis and mild mitral regurg, mild tricuspid regurg with severe pulmonary hypertension with estimated pulmonary artery systolic pressure of 73. GERD: * Continue home Prevacid for GI protection and GERD. Anxiety, chronic: * Ativan as needed for anxiety. Obesity: Upon discharge, patient's care will be returned to her PCP, Dr. Santiago. 12/20 Doing a little better. Feels able to breath slightly better. Still with significant cough and congestion, not mobilizing sputum. Notes frontal NGO - feels from all the coughing. No nausea or ab pain. Eating well. Passing flatus. Urinating well. Did go for walk this am, but O2 saturations decreased to the 80' s. Potassium with increase, but with significant hemolysis. Continue Levaquin 750mg IV daily for antimicrobial coverage. Continue with Steroids and Neb treatments. Decrease IVF to 50cc/hr. Continue supplemental O2, weaning as able. Encourage ambulation as able. Will hold on am lab tomorrow due to pt's request. 12/21 Rough night-slept poorly. More SOA and O2 needed to be increased. Continued cough. Minimal sputum production. Does feel lungs starting to loosen up slightly. Eating well without nausea or ab pain. Did have bowel movement. Tongue starting to feel sore - worries about developing thrush. Urinating well. Did ambulate this am. Continue Levaquin 750mg IV daily for antimicrobial coverage. Day #3. Continue with Steroids and Neb treatments. Continue acapella use. Continue with supplemental O2. May d/c IVF as taking po well. Will place PICC line as having difficulty maintaining IV access. Start Mycelex to decrease risk of thrush - antibiotics and steroids risk factors. Encourage ambulation as able. Recheck BMP in am to assess electrolytes and renal status in light of medication use. Recheck CBC in am due to pneumonia CXR PA/Lat in am for F/U of infiltrate. 12/22 Feeling making gains. Did sleep better last night-still very tired and weak this am. Cough with decrease, not mobilizing sputum. Feels less SOA and congested. Eating well. Mouth much less discomfortable. Bowels moving. Working on ambulating to keep strength up. No f/c. Urinating well. Continue Levaquin 750mg IV daily for antimicrobial coverage. Day #4. Solu-Medrol continues Continue with DuoNeb and budesonide. Pt using Acapella routinely and finds is helpful. Continue with supplemental O2 - wean as able. Encourage ambulation to increase functional status. 12/23 More SOA today. O2 needs increased. Cough, but no sputum. No chest pain or pain with breathing. Not with nausea or ab pain. More tired and weak today. HR did increase around noon. EKG showing Afib with RVR. Diltiazem bolus of 5mgx1 and then 10mgx1 given without decrease in HR. Digoxin 0.5mg IV x1 given Monitor HR - if not decreasing will need to transfer to CCU for diltiazem drip. Continue Levaquin 750mg IV daily for antimicrobial coverage. Day #5. Decrease Solu-Medrol to 62.5mg IV q 6 hours. Continue with DuoNeb and budesonide. Continue Acapella. Continue with supplemental O2. 12/24 About the same. Breathing still very short and congested. Cough, but not able to mobilize sputum. Chest wall sore from coughing. Very tired and fatigued-did sleep okay last night, but just washed out this am. No chest pressure or heaviness. No nausea. Eating okay. Ab with slight bloating-feels like she needs to have bowel movement. Urinating well. No f/c. Converted to NSR yesterday evening. Will continue with Digoxin. Change Norvasc to Cardizem 180mg to help BP and HR. Diamox 500mg today to help motivate fluid and minimize contraction alkalosis. Continue Levaquin 750mg IV daily for antimicrobial coverage. Day #6. Continue Solu-Medrol to 62.5mg IV q 6 hours. Continue with DuoNeb and budesonide. Continue Acapella. Encourage deep breathing for gas exchange. Continue with supplemental O2, using lowest flow to keep sats 89-91%. Recheck CXR in am. Repeat BMP in am due to medication use. 12/25/16 Overall fatigued and worn out. Discussed resting today and attempting to get up with PT tomorrow Continues in NSR on telemetry. Continue with Cardizem and digoxin Today is day 7 of Levaquin antibiotic Chest X-ray this morning does show a slight improvement in bibasilar atelectasis Continue with scheduled Solu-Medrol every 6 hours for pulmonary inflammation Continue with scheduled DuoNeb and budesonide. Continue Acapella. Will place PT/OT order for tomorrow 12/26/2016-Dr. Davidson Acute hypoxic respiratory failure-currently requiring 3 L Pneumonia-improving, day 7 Levaquin, change to oral. Check chest x-ray tomorrow COPD exacerbation-requiring 3 L of oxygen, was only needing 2 L at night at home. Change to oral steroids. Continue breathing treatments. Continue incentive spirometer and Acapella. A. fib with RVR-resolved Suppressed TSH-check free T3 and free T4 Leukocytosis-resolved Anxiety-change lorazepam to by mouth Questionable chest tightness-check EKG and troponin, doubt cardiac PT saw the patient and recommended home with home health. OT recommended home. Hyperglycemia-likely secondary to steroids, change to ADA diet Possibly home in the next 1-2 days. Discussed with the patient's daughter. Discussed with case management. Greater than 35 minutes of time spent seeing and evaluating the patient, reviewing chart, and determining care plan. 12/27/16 In regards to acute on chronic respiratory failure, patient is currently requiring 3 liters of oxygen by nasal cannula chronically. She'll likely need to be discharged home on 24-hour oxygen. Today is day 8 of [facility]. Chest x-ray repeated this morning does show an improvement in right-sided pneumonia. Continue with oral steroids for acute pulmonary. Patient does voice concern of steroid taper as she feels that every time she is off of steroid she gets another exacerbation. She does have a medical referral coordinator, Dr. Ford in [employer]. May need to discuss discharge plan. Consult placed to Dr. Galdamez in regards to thyroid abnormalities. Appreciate his expertise in endocrinology. Serial troponins were evaluated, however, never elevated to a critical level. Likely chest "congestion"/pressure is pulmonary in nature We did discuss in great detail regarding her discharge plans. She does want to go home independently, however, agrees that she needs home health assistance. She would also like to have PT and OT for continued strengthening Will discuss further plan of care with FOZIA Ventura MD 12/27/162027: Assessment & Plan Assessment 12/27/2016-I reviewed this chart, the patient history, and the [employer]'s/PA's documented findings as above. We discussed and formulated the assessment and plan as above with the additions below.-Stuart The patient had a low TSH of 0.09. On testing her free T4 and free T3 were also low. I did call and talk with Dr. Galdamez this morning and he recommended a reverse T3 test and asked if she had signs or symptoms of hypothyroidism. The patient does complain of being very fatigued for the past 2 months and having no energy. She has been feeling sleepy and a little depressed. She is slow to improve with her COPD exacerbation and pneumonia this time. She has been coughing more today. She is currently on 2.5 L per nasal cannula. On exam she appears mildly drowsy. She is able to stay awake during the entire visit. Neck is supple. Chest reveals expiratory wheezes throughout posteriorly. Cardiovascular reveals a regular rate and rhythm. Abdomen is soft and nontender. Extremities are free of edema. Chest x-ray today shows improving right lower lobe pneumonia on my read and per radiology Continue with current treatment for now. Reverse T3 was obtained and will need to be followed up as an outpatient by her primary care physician with a call to Dr. Galdamez. Will discuss with Dr. Galdamez whether or not thyroid placement should be started this hospitalization. ADDIS OBREGON APRN Dec 27, 2016 14:09 FOZIA DAVIDSON MD Dec 27, 2016 20:28
--- NOTE | 2016-12-27 19:13 | NUR ---
Shift Summary Patient alert and oriented x3 this shift. VSS. Weaned down to 2L NC, used 4L while walking in halls. Patient ambulated in halls twice today. Up ad rema in room. Patient reported adequate output, small BM this AM. Patient had adequate oral intake. IVL left upper arm midline, flushed and aspirated. Patient c/o fatigue today, slept often between cares.
[2016-12-27] MEDS: LORAZEPAM 0.5 MG TABLET PO SCH (20:48)
[2016-12-27] MEDS: GABAPENTIN 600 MG TABLET PO SCH (20:50)
--- NOTE | 2016-12-27 23:00 | NUR ---
status Assumed care of pt at 2300. patient is a/ox4 in room. Denies pain/discomfort. independent with cares. able to make needs known. will continue to monitor.
[2016-12-28] VITALS (8 sets, daily range): BP systolic 143–160; BP diastolic 66–69; PULSE 69–85; RESP 18–20; TEMP 96.6–96.9; O2SAT 92–95
[2016-12-28] MEDS: LORAZEPAM 0.5 MG TABLET PO PRN (01:10)
--- NOTE | 2016-12-28 01:32 | NUR ---
PRN Patient complained of racing thoughts, being anxious, and not able to sleep. PRN Ativan 0.5mg given PO per patient request.
[2016-12-28] MEDS: CLOTRIMAZOLE 10 MG TROCHE PO SCH ×5 (05:43→22:54)
[2016-12-28] MEDS: BUDESONIDE INH.SOLN. 0.5mg/2ml NEB AEROSOL SCH ×2 (06:36→20:13)
[2016-12-28] MEDS: ALBUTEROL/IPRATROPIUM INHAL. 2.5mg-0.5mg/3ml Neb. AEROSOL SCH ×4 (06:36→20:14)
--- NOTE | 2016-12-28 07:26 | NUR ---
summary patient a/ox4 able to make needs known. patient walked in the halls accompanied by staff. patient only complained of SOA during activity. While walking patient's O2sat drops to 85% on 4L. Returns to 92-95% on 2L while resting. patient received ativan 0.5mg during the night at 0132 per request. no other complaints. VSS.
--- NOTE | 2016-12-28 07:45 | NUR ---
Pt Assessment Pt is alert and oriented x4, able to verbalize needs. Reports she plans to go home today. Has nonproductive cough and coarse lungs sounds bilaterally with rhonchi and left greater than right and expiratory wheezes bilaterally. O2 continued at 2L per cannula. Denies pain at this time.
[2016-12-28 08:39] LABS: ANION GAP 7 MEQ/L (5-15); BUN/CREATININE RATIO 33 RATIO (6-26); CHLORIDE 102 MEQ/L (98-107); CO2 - CARBON DIOXIDE 31 MEQ/L (22-30); GLOMERULAR FILTRATION RATE 54; GLUCOSE 79 MG/DL (65-110); POTASSIUM 3.9 MEQ/L (3.6-5); SODIUM 140 MEQ/L (134-144)
[2016-12-28] MEDS: ASPIRIN 81 MG CHEWABLE TABLET PO SCH (09:07)
[2016-12-28] MEDS: PredniSONE 10 MG TABLET PO SCH (09:07)
[2016-12-28] MEDS: LANSOPRAZOLE SOLU-TAB 15 MG TABLET PO SCH ×2 (09:08→19:52)
[2016-12-28] MEDS: CITALOPRAM 10mg TABLET PO SCH (09:08)
[2016-12-28] MEDS: DILTIAZEM CD 180 MG PO SCH (09:08)
[2016-12-28] MEDS: DOCUSATE SODIUM 100 MG CAPSULE PO SCH ×2 (09:08→20:03)
[2016-12-28] MEDS: ALLOPURINOL 100 MG TABLET PO SCH (09:08)
[2016-12-28] MEDS: GUAIFENESIN DM 600mg/30mg TABLET PO SCH ×2 (09:08→20:03)
[2016-12-28] MEDS: SALINE NASAL SPRAY 45ml EA NOSTRIL SCH ×4 (09:09→20:03)
[2016-12-28] MEDS ORDERED: LEVOTHYROXINE 50 MCG TABLET PO ONE (11:00)
[2016-12-28] MEDS ORDERED: FUROSEMIDE 20 MG/2 ML INJECTION IV ONE (11:15)
--- NOTE | 2016-12-28 11:15 | PNPDOC ---
ADDIS OBREGON V SEWER AND INSPECTOR 12/28/16 1111: Subjective Date DATE: 12/28/16 TIME: 11:05 Subjective Delma is seen this morning for follow-up pneumonia, COPD exacerbation. She continues to have a significant amount of wheezing on auscultation. She continues on 2 liters of oxygen by nasal cannula. She does report that she was up and ambulated in the [place] without oxygen and quickly became significantly short of breath with sats at 85%. Denies having chest pain, or GI complaints. She continues to feel significantly weak and fatigued. She has a significant amount of anxiety about being discharged home. Objective Vital Signs Vital signs Vital Signs Date Time Temp Pulse Resp B/P Pulse Ox O2 Delivery O2 Flow Rate FiO2 12/28/16 11:02 69 12/28/16 10:59 94 Nasal Cannula 2.00 12/28/16 10:51 20 12/28/16 08:00 96.8 151/68 Height (Feet): 5 Height (Inches): 0.00 Weight (Kilograms): 86.400 General General Appearance: Alert, Orientated x 3, Cooperative, No Acute Distress Eyes (Brief) Eyes: FOUND: EOMI ENMT (Brief) ENMT: FOUND: mucosa moist, normal dentition, NOT FOUND: pharnyx erythema Neck (Brief) Neck: FOUND: midline, NOT FOUND: adenopathy, carotid bruits, tracheal deviation Respiratory (Brief) Respiratory: FOUND: wheezes Cardiovascular (Brief) Cardiac: FOUND: regular rate, regular rhythm, NOT FOUND: murmur, pedal edema Capillary Refill: <2 sec Abdomen (Brief) Abdominal: FOUND: BS normo active x4, soft, NOT FOUND: distended, tender Lymphatic (Brief) Lymphatic: NOT FOUND: adenopathy Musculoskeletal (Brief) Musculoskeletal: NOT FOUND: tenderness Integumentary (Brief) Integumentary: FOUND: dry, pink, warm Neurologic (Brief) Neurological: FOUND: cranial 2-12 intact Psychiatric (Brief) Psychiatric: FOUND: alert, attentive, normal affect, oriented Laboratory Laboratory Laboratory Tests 12/27/16 08:31 12/28/16 08:23 Laboratory Tests 12/27/16 04:20 Assessment & Plan Problems: (1) Pneumonia Status: Acute Qualifiers: Pneumonia type: due to unspecified organism Laterality: right Lung location: lower lobe of lung Qualified Codes: J18.1 - Lobar pneumonia, unspecified organism (2) Acute respiratory failure with hypoxia Status: Acute Assessment & Plan: present on admission. (3) COPD exacerbation Status: Acute (4) Atrial fibrillation with rapid ventricular response Status: Resolved Assessment & Plan: Onset 12/23 (5) Leukocytosis Status: Resolved Assessment & Plan: present on admission. (6) Hypernatremia Status: Resolved Assessment & Plan: present on admission. (7) HTN (hypertension) Status: Chronic (8) Atrial fibrillation, currently in sinus rhythm Status: Chronic Assessment & Plan: POA - RVR developed on 12/23 (9) Moderate to severe pulmonary hypertension Status: Chronic (10) Anxiety Status: Chronic (11) GERD (gastroesophageal reflux disease) Status: Chronic (12) Obesity (BMI 30-39.9) Status: Chronic Plan/Intensity of Service 12/28/16 Wheezing continues to be moderate, noted that weight is up this morning. Will give 20 grams of IV Lasix 1 now. Continue to work on weaning oxygen as able. Today is day 9 of Levaquin for treatment of pneumonia, which appears to be improving on x-ray. Continue on prednisone 30 milligrams daily for pulmonary inflammation. Continue with scheduled DuoNeb and Pulmicort breathing treatments. Encourage the use of Tessalon Perles and Mucinex to help with coughing. Reverse T3 lab is pending for further endocrinology evaluation. Patient is started on levothyroxine 50 micrograms daily PT and OT for continued strengthening Delma continues to verbalize her fear and anxiety regarding being discharged Will discuss further plan of care with Dr. Davidson Code Status Full Code Hospital Course Summary Disclaimer The hospital course summary below is not to be considered part of the above Progress Note. Hospital Course Summary 12/19/16: Marc ADMIT - Assessment/Plan. Acute respiratory failure with hypoxia: * Admit to inpatient status under the care of Dr. Jarrett. * Monitor respiratory function closely with continuous pulse oximetry. * SCDs for DVT prophylaxis. Pneumonia, acute with leukocytosis (WBC 11.5 on admission): * CXR in ED showed increased prominence of right basilar airspace opacity, some of which is chronic although maybe superimposed atelectasis or pneumonia. * Levaquin 750mg IV daily initiated in ED for coverage of pulmonary pathogens. Blood cultures pending; monitor sensitivities. Will try and obtain sputum culture. * Acapella for pulmonary toileting. * Mucinex for mucolytic effect. * Respiratory support including breathing treatments - DuoNeb QID and PRN and budesonide BID. * Tessalon pearls and Ricola for cough. * Routine medications for bowel motivation. * Recheck CBC and BMP in AM to monitor blood counts, electrolytes and renal function. Acute COPD exacerbation: * Solu-medrol 125mg IV Q6H for pulmonary inflammation. Consider changing to oral prednisone when more stable. * Influenza swab negative. Will check respiratory panel now. Hypernatremia: * Initiate NS 75cc/hr for gentle hydration. Monitor closely for signs of fluid overload with daily weights. Hypertension, chronic: * Continue home Norvasc and Lasix; monitor blood pressure closely. History of a-fib, currently sinus rhythm: * Monitor closely on telemetry. Moderate to severe pulmonary hypertension: * Echocardiogram from 05/05/2014 - normal VL systolic function with EF 70%; biatrial dilation, mitral sclerosis and mild mitral regurg, mild tricuspid regurg with severe pulmonary hypertension with estimated pulmonary artery systolic pressure of 73. GERD: * Continue home Prevacid for GI protection and GERD. Anxiety, chronic: * Ativan as needed for anxiety. Obesity: Upon discharge, patient's care will be returned to her PCP, Dr. Santiago. 12/20 Doing a little better. Feels able to breath slightly better. Still with significant cough and congestion, not mobilizing sputum. Notes frontal NGO - feels from all the coughing. No nausea or ab pain. Eating well. Passing flatus. Urinating well. Did go for walk this am, but O2 saturations decreased to the 80' s. Potassium with increase, but with significant hemolysis. Continue Levaquin 750mg IV daily for antimicrobial coverage. Continue with Steroids and Neb treatments. Decrease IVF to 50cc/hr. Continue supplemental O2, weaning as able. Encourage ambulation as able. Will hold on am lab tomorrow due to pt's request. 12/21 Rough night-slept poorly. More SOA and O2 needed to be increased. Continued cough. Minimal sputum production. Does feel lungs starting to loosen up slightly. Eating well without nausea or ab pain. Did have bowel movement. Tongue starting to feel sore - worries about developing thrush. Urinating well. Did ambulate this am. Continue Levaquin 750mg IV daily for antimicrobial coverage. Day #3. Continue with Steroids and Neb treatments. Continue acapella use. Continue with supplemental O2. May d/c IVF as taking po well. Will place PICC line as having difficulty maintaining IV access. Start Mycelex to decrease risk of thrush - antibiotics and steroids risk factors. Encourage ambulation as able. Recheck BMP in am to assess electrolytes and renal status in light of medication use. Recheck CBC in am due to pneumonia CXR PA/Lat in am for F/U of infiltrate. 12/22 Feeling making gains. Did sleep better last night-still very tired and weak this am. Cough with decrease, not mobilizing sputum. Feels less SOA and congested. Eating well. Mouth much less discomfortable. Bowels moving. Working on ambulating to keep strength up. No f/c. Urinating well. Continue Levaquin 750mg IV daily for antimicrobial coverage. Day #4. Solu-Medrol continues Continue with DuoNeb and budesonide. Pt using Acapella routinely and finds is helpful. Continue with supplemental O2 - wean as able. Encourage ambulation to increase functional status. /25 More SOA today. O2 needs increased. Cough, but no sputum. No chest pain or pain with breathing. Not with nausea or ab pain. More tired and weak today. HR did increase around noon. EKG showing Afib with RVR. Diltiazem bolus of 5mgx1 and then 10mgx1 given without decrease in HR. Digoxin 0.5mg IV x1 given Monitor HR - if not decreasing will need to transfer to CCU for diltiazem drip. Continue Levaquin 750mg IV daily for antimicrobial coverage. Day #5. Decrease Solu-Medrol to 62.5mg IV q 6 hours. Continue with DuoNeb and budesonide. Continue Acapella. Continue with supplemental O2. 12/24 About the same. Breathing still very short and congested. Cough, but not able to mobilize sputum. Chest wall sore from coughing. Very tired and fatigued-did sleep okay last night, but just washed out this am. No chest pressure or heaviness. No nausea. Eating okay. Ab with slight bloating-feels like she needs to have bowel movement. Urinating well. No f/c. Converted to NSR yesterday evening. Will continue with Digoxin. Change Norvasc to Cardizem 180mg to help BP and HR. Diamox 500mg today to help motivate fluid and minimize contraction alkalosis. Continue Levaquin 750mg IV daily for antimicrobial coverage. Day #6. Continue Solu-Medrol to 62.5mg IV q 6 hours. Continue with DuoNeb and budesonide. Continue Acapella. Encourage deep breathing for gas exchange. Continue with supplemental O2, using lowest flow to keep sats 89-91%. Recheck CXR in am. Repeat BMP in am due to medication use. 12/25/16 Overall fatigued and worn out. Discussed resting today and attempting to get up with PT tomorrow Continues in NSR on telemetry. Continue with Cardizem and digoxin Today is day 7 of Levaquin antibiotic Chest X-ray this morning does show a slight improvement in bibasilar atelectasis Continue with scheduled Solu-Medrol every 6 hours for pulmonary inflammation Continue with scheduled DuoNeb and budesonide. Continue Acapella. Will place PT/OT order for tomorrow 12/26/2016-Dr. Davidson Acute hypoxic respiratory failure-currently requiring 3 L Pneumonia-improving, day 7 Levaquin, change to oral. Check chest x-ray tomorrow COPD exacerbation-requiring 3 L of oxygen, was only needing 2 L at night at home. Change to oral steroids. Continue breathing treatments. Continue incentive spirometer and Acapella. A. fib with RVR-resolved Suppressed TSH-check free T3 and free T4 Leukocytosis-resolved Anxiety-change lorazepam to by mouth Questionable chest tightness-check EKG and troponin, doubt cardiac PT saw the patient and recommended home with home health. OT recommended home. Hyperglycemia-likely secondary to steroids, change to ADA diet Possibly home in the next 1-2 days. Discussed with the patient's daughter. Discussed with case management. Greater than 35 minutes of time spent seeing and evaluating the patient, reviewing chart, and determining care plan. 12/27/16 In regards to acute on chronic respiratory failure, patient is currently requiring 3 liters of oxygen by nasal cannula chronically. She'll likely need to be discharged home on 24-hour oxygen. Today is day 8 of Levaquin. Chest x-ray repeated this morning does show an improvement in right-sided pneumonia. Continue with oral steroids for acute pulmonary. Patient does voice concern of steroid taper as she feels that every time she is off of steroid she gets another exacerbation. She does have a healthcare business analyst, Dr. Ford in [place]. May need to discuss discharge plan. Consult placed to Dr. Galdamez in regards to thyroid abnormalities. Appreciate his expertise in endocrinology. Serial troponins were evaluated, however, never elevated to a critical level. Likely chest "congestion"/pressure is pulmonary in nature We did discuss in great detail regarding her discharge plans. She does want to go home independently, however, agrees that she needs home health assistance. She would also like to have PT and OT for continued strengthening Will discuss further plan of care with Dr. Davidson 12/28/16 Wheezing continues to be moderate, noted that weight is up this morning. Will give 20 grams of IV Lasix 1 now. Continue to work on weaning oxygen as able. Today is day 9 of Levaquin for treatment of pneumonia, which appears to be improving on x-ray. Continue on prednisone 30 milligrams daily for pulmonary inflammation. Continue with scheduled DuoNeb and Pulmicort breathing treatments. Encourage the use of Tessalon Perles and Mucinex to help with coughing. Reverse T3 lab is pending for further endocrinology evaluation. Patient is started on levothyroxine 50 micrograms daily PT and OT for continued strengthening Delma continues to verbalize her fear and anxiety regarding being discharged Will discuss further plan of care with FOZIA Ventura MD 12/28/16 1935: Assessment & Plan Assessment 12/28/2016-I reviewed this chart, the patient history, and the SEWER AND INSPECTOR's/PA's documented findings as above. We discussed and formulated the assessment and plan as above with the additions below.-Dr. Davidson Patient states she feels a little bit better today. She's not coughing quite as much. She is down to 2 L of oxygen. She is still worried about her breathing worsening when she goes home. She is eating okay. On exam she is alert and oriented and in no acute distress. She does cough during the exam. Chest reveals continued wheezing throughout but a little better than yesterday. Cardiovascular reveals a regular rate and rhythm. Abdomen is soft and nontender. Extremities are free of edema. In a dose of Lasix today to see if this would help with her breathing. I talked with Dr. Galdamez earlier today and the patient was started on Synthroid low-dose. Reverse T3 was ordered and obtained prior to starting Synthroid. Hopefully the thyroid replacement will help with her excessive fatigue. Possibly home in the next 1-2 days. ADDIS OBREGON APRN Dec 28, 2016 11:11 FOZIA DAVIDSON MD Dec 28, 2016 19:35
[2016-12-28] MEDS: LEVOFLOXACIN 750 MG TABLET PO SCH (11:43)
--- NOTE | 2016-12-28 11:43 | NUR ---
SCARLETT PANTOJA VISITED PT. PT IS AWARE THAT SHE WILL NOT BE GOING HOME TODAY. PT IS HOPEFUL TO GO HOME TOMORROW. PT PLANS TO USE [employer] AT TIME OF D/C FROM [facility]. SCARLETT SPOKE WITH JUAN FROM [employer] AND SHE IS AWARE THAT PT IS NOT GOING HOME TODAY BUT MAY D/C HOME TOMORROW. JUAN AWARE TO CONTACT CM IF NEEDS [facility].
[2016-12-28] MEDS: PROMETHAZINE/CODEINE ORAL SYRUP PO PRN ×2 (13:46→20:05)
--- NOTE | 2016-12-28 14:27 | CONSF ---
DATE OF CONSULT 12/28/2016 DATE OF ADMISSION 12/19/2016 REASON FOR CONSULTATION Abnormal thyroid tests. HISTORY OF PRESENT ILLNESS This 76-year-old female with COPD and severe pulmonary hypertension was admitted for worsening dyspnea with cough. She was found to have pneumonia and is under treatment with oxygen and antibiotics. During the course of her hospital stay she was found to have a suppressed TSH of 0.09 but free T4 was only to 0.52 and free T3 1.88 which did not seem to agree with the low TSH level. She is not known to have had any prior thyroid disorder. She denies any swelling or tightness in her neck. She has had no difficulty swallowing. She has had extreme fatigue that had been ascribed to her exacerbated lung disease. She occasionally notices some palpitations and tremor, usually after some of her breathing treatments. She denies any change of bowel habits. She has not had unusual amount of hair loss. She tends to have some heat intolerance. She denies anxiety. She has had some depression but attributes this to a in the family last year. ALLERGIES Cefaclor. PAST MEDICAL HISTORY Remarkable for COPD, atrial fibrillation, hypertension, GERD, pulmonary hypertension, osteoarthritis, gouty arthritis, and obesity. She is status post appendectomy, cholecystectomy, hysterectomy, left knee arthroscopy and bilateral cataract excision. CURRENT MEDICATIONS Per EMR. FAMILY HISTORY Remarkable for oat cell cancer, PR, coronary artery disease and CHF. SOCIAL HISTORY The patient is a former smoker and quit in 1990. She rarely drinks any alcohol. Her primary care physician is Feli Santiago DO. REVIEW OF SYSTEMS Remarkable for cough, dyspnea, wheezing and otherwise as mentioned in HPI. PHYSICAL EXAM GENERAL: Well-developed, well-nourished obese female, alert, oriented and in no acute distress. HEENT: Unremarkable. NECK: Without thyromegaly or lymphadenopathy. LUNGS: Reveal expiratory wheezes. HEART: Regular rate and rhythm. ABDOMEN: Normal bowel sounds. Soft. Nontender. EXTREMITIES: Without edema. SKIN: Warm and dry. NEUROLOGIC: No hand tremor today. LABS Reverse T3 is pending. ASSESSMENT 1. Abnormal thyroid tests. The patient's low TSH in the presence of low free T4 and free T3 suggest either central hypothyroidism or the euthyroid sick syndrome. The reverse T3 will help discriminate between these possibilities. Meanwhile a low dose of thyroid hormone replacement would certainly be acceptable until the exact diagnosis is known. 2. Hypertension. 3. COPD. 4. Pneumonia. 5. Atrial fibrillation. 6. Obesity. RECOMMENDATIONS I discussed yesterday evening with Dr. Davidson the checking of reverse T3 which has been sent. We also discussed starting 50 mcg of Synthroid q.a.m. This should not be high enough to risk reverting into atrial fibrillation. She will be able to follow up for the results of the reverse T3 and to decide whether ongoing thyroid hormone supplementation is required about three weeks after her hospitalization at my office. Thank you very much for asking me to assist in caring for this nice lady. I will follow her along with you while she remains in the hospital. KEISHA
[2016-12-28] MEDS: HYDROCODONE/APAP 5 mg/325 mg TABLET PO PRN (18:23)
[2016-12-28] MEDS: LORAZEPAM 0.5 MG TABLET PO SCH (20:03)
[2016-12-28] MEDS: BENZONATATE 200 MG CAPSULE PO PRN (20:05)
[2016-12-28] MEDS: GABAPENTIN 600 MG TABLET PO SCH (22:54)
[2016-12-29] VITALS (9 sets, daily range): BP systolic 141–149; BP diastolic 67–75; PULSE 80–88; RESP 14–16; TEMP 96–96.4; O2SAT 3–94
[2016-12-29] MEDS: LORAZEPAM 0.5 MG TABLET PO PRN (01:55)
--- NOTE | 2016-12-29 01:59 | NUR ---
PRN PT WAS GIVEN ATIVAN PRN PER HER REQUEST FOR ANXIETY. PT VOICED THAT SHE CAN'T SLEEP. ON 2 L NC O2 THAT SHE TOLERATES WELL. WILL CONTINUE TO MONITOR.
[2016-12-29] MEDS: MENTHOL COUGH DROPS (RICOLA) MM PRN (04:26)
[2016-12-29 05:15] LABS: ANION GAP 4 MEQ/L (5-15); BUN/CREATININE RATIO 27 RATIO (6-26); CALCIUM 8.4 MG/DL (8.4-10.2); CHLORIDE 103 MEQ/L (98-107); CO2 - CARBON DIOXIDE 32 MEQ/L (22-30); GLOMERULAR FILTRATION RATE 54; GLUCOSE 90 MG/DL (65-110); POTASSIUM 4.6 MEQ/L (3.6-5); SODIUM 139 MEQ/L (134-144)
[2016-12-29] MEDS: LEVOTHYROXINE 50 MCG TABLET PO SCH (05:46)
[2016-12-29] MEDS: CLOTRIMAZOLE 10 MG TROCHE PO SCH ×5 (05:46→21:20)
--- NOTE | 2016-12-29 06:46 | NUR ---
SUMMARY PT AWAKE. WATCHING TV AND DRINKING COFFEE. PT IS ALERT AND ORIENTED. DENIED ANY PAIN THIS SHIFT. WAS GIVEN PRN ATIVAN FOR ANXIETY AND COUGH DROP PER HER REQUEST. VOICED THAT SHE DIDN'T SLEEP WELL THIS SHIFT. AMBULATE SELF TO THE BATHROOM. GAIT STEADY. EDUCATED ABOUT THE CALL LIGHT USE AND SAFETY. PT TELE SINUS RHYTHM. MIDLINE IN PLACE. FLUSHING AND ASPIRATING.
[2016-12-29] MEDS: ALBUTEROL/IPRATROPIUM INHAL. 2.5mg-0.5mg/3ml Neb. AEROSOL SCH ×4 (07:24→19:08)
[2016-12-29] MEDS: BUDESONIDE INH.SOLN. 0.5mg/2ml NEB AEROSOL SCH ×2 (07:24→19:08)
--- NOTE | 2016-12-29 08:35 | PNPDOC ---
Subjective Date DATE: 12/29/16 TIME: 08:26 Subjective Still tired. Little less dyspnea. Wants to go home. Tolerating Synthroid without problems thus far. No palpitations. Objective Vital Signs Vital Signs Vital Signs 12/29/16 12/29/16 12/29/16 12/29/16 00:39 07:25 07:25 07:25 Temp 96.0 Pulse 80 88 Resp 16 22 B/P 141/69 Pulse Ox 93 93 3 O2 Delivery Nasal Cannula O2 Flow Rate 2.00 2.00 12/29/16 12/29/16 07:43 08:25 Temp 96.0 Pulse 75 88 Resp 14 B/P 142/75 Pulse Ox 90 O2 Delivery Nasal Cannula O2 Flow Rate 2.00 Height (Feet): 5 Height (Inches): 0.00 Weight (Kilograms): 86.400 General General Nourishment: Well Nourished, Well Developed, Obese, Adult Eyes (Brief) Eyes Brief: FOUND: EOMI, PERRL Neck (Brief) Neck Brief: NOT FOUND: adenopathy, thyromegaly Respiratory (Brief) Respiratory Brief: FOUND rales Cardiovascular (Brief) Cardiac Brief: FOUND: regular rate, regular rhythm, NOT FOUND: pedal edema Abdomen (Brief) Abdominal Brief: FOUND: BS normo active x4 Integumentary(Brief) Integumentary Brief: FOUND: dry, warm Neurologic(Brief) Neurological Brief: FOUND: motor Psychiatric(Brief) Psychiatric Brief: FOUND: alert, attentive, normal affect, oriented Laboratory Laboratory Laboratory Tests Test 12/29/16 04:21 Anion Gap 4MEQ/L (5-15) BUN/Creatinine Ratio 27RATIO (6-26) Blood Urea Nitrogen 27.0MG/DL (7-17) Calcium Level 8.4MG/DL (8.4-10.2) Calculated Osmolality 273MOSM/KG (261-280) Carbon Dioxide Level 32MEQ/L (22-30) Chloride Level 103MEQ/L (98-107) Creatinine 1.0MG/DL (0.7-1.2) Glomerular Filtration Rate Calc 54 Glucose Level 90MG/DL (65-110) Potassium Level 4.6MEQ/L (3.6-5) Sodium Level 139MEQ/L (134-144) Laboratory Tests Test 12/29/16 04:21 Turbidity < 20 (0-20) Sodium Level 139MEQ/L (134-144) Potassium Level 4.6MEQ/L (3.6-5) Chloride Level 103MEQ/L (98-107) Carbon Dioxide Level 32MEQ/L (22-30) Anion Gap 4MEQ/L (5-15) Blood Urea Nitrogen 27.0MG/DL (7-17) Creatinine 1.0MG/DL (0.7-1.2) Glomerular Filtration Rate Calc 54 BUN/Creatinine Ratio 27RATIO (6-26) Glucose Level 90MG/DL (65-110) Calculated Osmolality 273MOSM/KG (261-280) Calcium Level 8.4MG/DL (8.4-10.2) Icterus Index < 2 (0-7) Chemistry Specimen Hemolysis < 15 (0-25) Assessment & Plan Problems: (1) Abnormal thyroid blood test Status: Acute Assessment & Plan: The rT3 is still pending at this time. Unclear whether low TSH, FT4 and FT3 are due to euthyroid sick syndrome vs central hypothyroidism. Would advise continuing Synthroid 50 mcg until office followup which should be in 3-4 weeks. ABIGAIL STEELE MD Dec 29, 2016 08:34
[2016-12-29] MEDS: ASPIRIN 81 MG CHEWABLE TABLET PO SCH (08:43)
[2016-12-29] MEDS: DILTIAZEM CD 180 MG PO SCH (08:44)
[2016-12-29] MEDS: GUAIFENESIN DM 600mg/30mg TABLET PO SCH ×2 (08:44→21:14)
[2016-12-29] MEDS: LANSOPRAZOLE SOLU-TAB 15 MG TABLET PO SCH ×2 (08:46→21:13)
[2016-12-29] MEDS: CITALOPRAM 10mg TABLET PO SCH (08:46)
[2016-12-29] MEDS: ALLOPURINOL 100 MG TABLET PO SCH (08:47)
[2016-12-29] MEDS: DOCUSATE SODIUM 100 MG CAPSULE PO SCH ×2 (08:47→21:12)
[2016-12-29] MEDS: PredniSONE 10 MG TABLET PO SCH (08:48)
[2016-12-29] MEDS: SALINE NASAL SPRAY 45ml EA NOSTRIL SCH ×4 (08:49→21:13)
[2016-12-29] MEDS: LEVOFLOXACIN 750 MG TABLET PO SCH (11:45)
[2016-12-29] MEDS: HYDROCODONE/APAP 5 mg/325 mg TABLET PO PRN (11:46)
--- NOTE | 2016-12-29 18:22 | NUR ---
SHIFT SUMMARY Patient has been pleasant, patient complained of pain this morning [place] 5/325 po PRN was given this morning, during follow up patient stated it helped her reduce her pain. patient has not taken any naps today, patient has a midline on her left arm, midline is not patent, unable to flush, and unable to aspirate. Dressing is CDI. patient has a steady gait and is able to ambulate her self to the bathroom. patient denies needs or concerns at the moment.
[2016-12-29] MEDS: LORAZEPAM 0.5 MG TABLET PO SCH (21:13)
[2016-12-29] MEDS: GABAPENTIN 600 MG TABLET PO SCH (21:17)
[2016-12-29] MEDS: ALBUTEROL/IPRATROPIUM INHAL. 2.5mg-0.5mg/3ml Neb. AEROSOL PRN (21:41)
[2016-12-30] VITALS (10 sets, daily range): BP systolic 126–152; BP diastolic 56–74; PULSE 71–92; RESP 16–18; TEMP 96.3–97.8; O2SAT 91–95
--- NOTE | 2016-12-30 00:03 | PNPDOC ---
Subjective Date DATE: 12/29/16 TIME: 23:56 Subjective The patient was seen a little earlier this evening. She states her breathing is about the same to a little better. She is having more cough this evening and would like her cough suppressant. She is eating and drinking okay. She is hoping to be well enough to be discharged tomorrow. She does complain of a painful rash on her left buttock. Vesicles appear to be scabbed over and there is some raw skin as well. She states it is been there for several days. When I looked at the rash it looks like possible shingles. She states she has had shingles a couple of times in the past. Objective Vital Signs Vital signs Vital Signs Date Time Temp Pulse Resp B/P Pulse Ox O2 Delivery O2 Flow Rate FiO2 12/29/16 21:48 92 12/29/16 21:38 18 94 12/29/16 15:36 96.4 149/67 Nasal Cannula 2.00 GEN-alert, oriented, no acute distress HEENT-sclera anicteric, oropharynx is moist NECK-supple CV-regular rate and rhythm CHEST-minimal wheezing, mild coarse breath most likely sounds from upper airways ABD-soft, nontender, nondistended -no Jacome EXT-edema NEURO-focal deficits SKIN-approximately 2-3 inch area of rash on her left buttock/hip which looks like it was a vesicular rash that is now mostly scabbed over with some denuded skin Height (Feet): 5 Height (Inches): 0.00 Weight (Kilograms): 86.400 Laboratory Laboratory Laboratory Tests 12/28/16 08:23 12/29/16 04:21 Assessment & Plan Problems: (1) Pneumonia Status: Acute Qualifiers: Pneumonia type: due to unspecified organism Laterality: right Lung location: lower lobe of lung Qualified Codes: J18.1 - Lobar pneumonia, unspecified organism (2) Acute respiratory failure with hypoxia Status: Acute Assessment & Plan: present on admission. (3) COPD exacerbation Status: Acute (4) Atrial fibrillation with rapid ventricular response Status: Resolved Assessment & Plan: Onset 12/23 (5) Leukocytosis Status: Resolved Assessment & Plan: present on admission. (6) Hypernatremia Status: Resolved Assessment & Plan: present on admission. (7) HTN (hypertension) Status: Chronic (8) Atrial fibrillation, currently in sinus rhythm Status: Chronic Assessment & Plan: POA - RVR developed on 12/23 (9) Moderate to severe pulmonary hypertension Status: Chronic (10) Anxiety Status: Chronic (11) GERD (gastroesophageal reflux disease) Status: Chronic (12) Obesity (BMI 30-39.9) Status: Chronic Assessment 12/29/2016-Dr. Davidson Re: COPD exacerbation-continue with current treatment regarding pneumonia-we'll likely discontinue Levaquin after discharge Regarding possible shingles-likely start oral medication tomorrow. 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 Discussed with Dr. Galdamez. He recommends continuing Synthroid 50 g daily and following up 3-4 weeks. Patient continues to feel fatigued. Hopefully discharge tomorrow. Code Status Full Code Hospital Course Summary Disclaimer The hospital course summary below is not to be considered part of the above Progress Note. Hospital Course Summary 12/19/16: Marc ADMIT - Assessment/Plan. Acute respiratory failure with hypoxia: * Admit to inpatient status under the care of Dr. Jarrett. * Monitor respiratory function closely with continuous pulse oximetry. * SCDs for DVT prophylaxis. Pneumonia, acute with leukocytosis (WBC 11.5 on admission): * CXR in ED showed increased prominence of right basilar airspace opacity, some of which is chronic although maybe superimposed atelectasis or pneumonia. * Levaquin 750mg IV daily initiated in ED for coverage of pulmonary pathogens. Blood cultures pending; monitor sensitivities. Will try and obtain sputum culture. * Acapella for pulmonary toileting. * Mucinex for mucolytic effect. * Respiratory support including breathing treatments - DuoNeb QID and PRN and budesonide BID. * Tessalon pearls and Ricola for cough. * Routine medications for bowel motivation. * Recheck CBC and BMP in AM to monitor blood counts, electrolytes and renal function. Acute COPD exacerbation: * Solu-medrol 125mg IV Q6H for pulmonary inflammation. Consider changing to oral prednisone when more stable. * Influenza swab negative. Will check respiratory panel now. Hypernatremia: * Initiate NS 75cc/hr for gentle hydration. Monitor closely for signs of fluid overload with daily weights. Hypertension, chronic: * Continue home Norvasc and Lasix; monitor blood pressure closely. History of a-fib, currently sinus rhythm: * Monitor closely on telemetry. Moderate to severe pulmonary hypertension: * Echocardiogram from 05/05/2014 - normal VL systolic function with EF 70%; biatrial dilation, mitral sclerosis and mild mitral regurg, mild tricuspid regurg with severe pulmonary hypertension with estimated pulmonary artery systolic pressure of 73. GERD: * Continue home Prevacid for GI protection and GERD. Anxiety, chronic: * Ativan as needed for anxiety. Obesity: Upon discharge, patient's care will be returned to her PCP, Dr. Santiago. 12/20 Doing a little better. Feels able to breath slightly better. Still with significant cough and congestion, not mobilizing sputum. Notes frontal NGO - feels from all the coughing. No nausea or ab pain. Eating well. Passing flatus. Urinating well. Did go for walk this am, but O2 saturations decreased to the 80' s. Potassium with increase, but with significant hemolysis. Continue Levaquin 750mg IV daily for antimicrobial coverage. Continue with Steroids and Neb treatments. Decrease IVF to 50cc/hr. Continue supplemental O2, weaning as able. Encourage ambulation as able. Will hold on am lab tomorrow due to pt's request. 12/21 Rough night-slept poorly. More SOA and O2 needed to be increased. Continued cough. Minimal sputum production. Does feel lungs starting to loosen up slightly. Eating well without nausea or ab pain. Did have bowel movement. Tongue starting to feel sore - worries about developing thrush. Urinating well. Did ambulate this am. Continue Levaquin 750mg IV daily for antimicrobial coverage. Day #3. Continue with Steroids and Neb treatments. Continue acapella use. Continue with supplemental O2. May d/c IVF as taking po well. Will place PICC line as having difficulty maintaining IV access. Start Mycelex to decrease risk of thrush - antibiotics and steroids risk factors. Encourage ambulation as able. Recheck BMP in am to assess electrolytes and renal status in light of medication use. Recheck CBC in am due to pneumonia CXR PA/Lat in am for F/U of infiltrate. 12/22 Feeling making gains. Did sleep better last night-still very tired and weak this am. Cough with decrease, not mobilizing sputum. Feels less SOA and congested. Eating well. Mouth much less discomfortable. Bowels moving. Working on ambulating to keep strength up. No f/c. Urinating well. Continue Levaquin 750mg IV daily for antimicrobial coverage. Day #4. Solu-Medrol continues Continue with DuoNeb and budesonide. Pt using Acapella routinely and finds is helpful. Continue with supplemental O2 - wean as able. Encourage ambulation to increase functional status. 12/23 More SOA today. O2 needs increased. Cough, but no sputum. No chest pain or pain with breathing. Not with nausea or ab pain. More tired and weak today. HR did increase around noon. EKG showing Afib with RVR. Diltiazem bolus of 5mgx1 and then 10mgx1 given without decrease in HR. Digoxin 0.5mg IV x1 given Monitor HR - if not decreasing will need to transfer to CCU for diltiazem drip. Continue Levaquin 750mg IV daily for antimicrobial coverage. Day #5. Decrease Solu-Medrol to 62.5mg IV q 6 hours. Continue with DuoNeb and budesonide. Continue Acapella. Continue with supplemental O2. 12/24 About the same. Breathing still very short and congested. Cough, but not able to mobilize sputum. Chest wall sore from coughing. Very tired and fatigued-did sleep okay last night, but just washed out this am. No chest pressure or heaviness. No nausea. Eating okay. Ab with slight bloating-feels like she needs to have bowel movement. Urinating well. No f/c. Converted to NSR yesterday evening. Will continue with Digoxin. Change Norvasc to Cardizem 180mg to help BP and HR. Diamox 500mg today to help motivate fluid and minimize contraction alkalosis. Continue Levaquin 750mg IV daily for antimicrobial coverage. Day #6. Continue Solu-Medrol to 62.5mg IV q 6 hours. Continue with DuoNeb and budesonide. Continue Acapella. Encourage deep breathing for gas exchange. Continue with supplemental O2, using lowest flow to keep sats 89-91%. Recheck CXR in am. Repeat BMP in am due to medication use. 12/25/16 Overall fatigued and worn out. Discussed resting today and attempting to get up with PT tomorrow Continues in NSR on telemetry. Continue with Cardizem and digoxin Today is day 7 of Levaquin antibiotic Chest X-ray this morning does show a slight improvement in bibasilar atelectasis Continue with scheduled Solu-Medrol every 6 hours for pulmonary inflammation Continue with scheduled DuoNeb and budesonide. Continue Acapella. Will place PT/OT order for tomorrow 12/26/2016-Dr. Davidson Acute hypoxic respiratory failure-currently requiring 3 L Pneumonia-improving, day 7 Levaquin, change to oral. Check chest x-ray tomorrow COPD exacerbation-requiring 3 L of oxygen, was only needing 2 L at night at home. Change to oral steroids. Continue breathing treatments. Continue incentive spirometer and Acapella. A. fib with RVR-resolved Suppressed TSH-check free T3 and free T4 Leukocytosis-resolved Anxiety-change lorazepam to by mouth Questionable chest tightness-check EKG and troponin, doubt cardiac PT saw the patient and recommended home with home health. OT recommended home. Hyperglycemia-likely secondary to steroids, change to ADA diet Possibly home in the next 1-2 days. Discussed with the patient's daughter. Discussed with case management. Greater than 35 minutes of time spent seeing and evaluating the patient, reviewing chart, and determining care plan. 12/27/16 In regards to acute on chronic respiratory failure, patient is currently requiring 3 liters of oxygen by nasal cannula chronically. She'll likely need to be discharged home on 24-hour oxygen. Today is day 8 of Levaquin. Chest x-ray repeated this morning does show an improvement in right-sided pneumonia. Continue with oral steroids for acute pulmonary. Patient does voice concern of steroid taper as she feels that every time she is off of steroid she gets another exacerbation. She does have a inspector outside [employer], Dr. Ford in [place]. May need to discuss discharge plan. Consult placed to Dr. Galdamez in regards to thyroid abnormalities. Appreciate his expertise in endocrinology. Serial troponins were evaluated, however, never elevated to a critical level. Likely chest "congestion"/pressure is pulmonary in nature We did discuss in great detail regarding her discharge plans. She does want to go home independently, however, agrees that she needs home health assistance. She would also like to have PT and OT for continued strengthening Will discuss further plan of care with Dr. Davidson 12/28/16 Wheezing continues to be moderate, noted that weight is up this morning. Will give 20 grams of IV Lasix 1 now. Continue to work on weaning oxygen as able. Today is day 9 of Levaquin for treatment of pneumonia, which appears to be improving on x-ray. Continue on prednisone 30 milligrams daily for pulmonary inflammation. Continue with scheduled DuoNeb and Pulmicort breathing treatments. Encourage the use of Tessalon Perles and Mucinex to help with coughing. Reverse T3 lab is pending for further endocrinology evaluation. Patient is started on levothyroxine 50 micrograms daily PT and OT for continued strengthening Delma continues to verbalize her fear and anxiety regarding being discharged Will discuss further plan of care with Dr. Davidson 12/28/2016-I reviewed this chart, the patient history, and the SENIOR HOUSEKEEPER's/PA's documented findings as above. We discussed and formulated the assessment and plan as above with the additions below.-Dr. Davidson Patient states she feels a little bit better today. She's not coughing quite as much. She is down to 2 L of oxygen. She is still worried about her breathing worsening when she goes home. She is eating okay. On exam she is alert and oriented and in no acute distress. She does cough during the exam. Chest reveals continued wheezing throughout but a little better than yesterday. Cardiovascular reveals a regular rate and rhythm. Abdomen is soft and nontender. Extremities are free of edema. In a dose of Lasix today to see if this would help with her breathing. I talked with Dr. Galdamez earlier today and the patient was started on Synthroid low-dose. Reverse T3 was ordered and obtained prior to starting Synthroid. Hopefully the thyroid replacement will help with her excessive fatigue. Possibly home in the next 1-2 days. FOZIA DAVIDSON MD Dec 29, 2016 23:59
[2016-12-30] MEDS: PROMETHAZINE/CODEINE ORAL SYRUP PO PRN (02:49)
--- NOTE | 2016-12-30 02:54 | NUR ---
PRN PT REPORTS COUGHING AND REQUESTS COUGH MEDICATION AND NEB TREATMENT. SEE EMAR. RT NOTIFIED. PT HAS WHEEZES IN UPPER LOBES.
[2016-12-30] MEDS: ALBUTEROL/IPRATROPIUM INHAL. 2.5mg-0.5mg/3ml Neb. AEROSOL PRN ×2 (03:08→10:48)
[2016-12-30] MEDS: HYDROCODONE/APAP 5 mg/325 mg TABLET PO PRN ×3 (04:01→18:09)
[2016-12-30] MEDS: CLOTRIMAZOLE 10 MG TROCHE PO SCH ×5 (05:40→22:16)
[2016-12-30] MEDS: LEVOTHYROXINE 50 MCG TABLET PO SCH (05:40)
--- NOTE | 2016-12-30 06:50 | NUR ---
SHIFT SUMMARY PT A&O X3 PT PLEASANT AND REPORTED AT START OF SHIFT SHE WAS VERY TIRED AND HAD NOT SLEPT MUCH SINCE IN HOSPITAL REPORTS SHE IS EXCITED TO BE GOING HOME IN MORNING. PT WAS SEEN BY PROVIDER AND TOLD POSSIBLE SHINGLES AND WOULD BE TESTED IN THE MORNING. PT GOT MINIMAL SLEEP COMPLAINED THROUGH THE NIGHT OF COUGH AND HEADACHE AND WAS REQUESTING COFFEE (DECAF) AND LIGHTS WERE ON MOST OF THE NIGHT. PT WAS GIVEN PRN MEDS SEE EMAR. PT REMAINED IN GOOD SPIRITS. PT ON OXYGEN 2-5L NC ADJUSTED BY PT WHO IS UP AD MATTY IN ROOM TO RESTROOM. PT TAKES MEDS WELL AND HAD MINIMAL COMPLAINTS OTHER THAN LACK OF SLEEP, COUGH AND HEADACHE. PT CURRENTLY ON PRECAUTIONS UNTIL SCREENING COMPLETE FOR SHINGLES. MIDLINE IV SITE IN LEFT UPPER ARM. FLUSHED DIFFICULTY FOR THIS RN PRIOR REPORTED NO FLUSH NO ASPIRATION. NO ASPIRATION FOR THIS RN. PT DID NOT RECEIVE FLUIDS OR MEDICATIONS THRU SITE.
[2016-12-30] MEDS: BUDESONIDE INH.SOLN. 0.5mg/2ml NEB AEROSOL SCH ×2 (08:31→20:26)
[2016-12-30] MEDS: ALBUTEROL/IPRATROPIUM INHAL. 2.5mg-0.5mg/3ml Neb. AEROSOL SCH ×4 (08:31→20:26)
[2016-12-30] MEDS: PredniSONE 10 MG TABLET PO SCH (08:32)
[2016-12-30] MEDS: ASPIRIN 81 MG CHEWABLE TABLET PO SCH (08:32)
[2016-12-30] MEDS: CITALOPRAM 10mg TABLET PO SCH (08:33)
[2016-12-30] MEDS: DILTIAZEM CD 180 MG PO SCH (08:33)
[2016-12-30] MEDS: DOCUSATE SODIUM 100 MG CAPSULE PO SCH ×2 (08:33→19:54)
[2016-12-30] MEDS: LANSOPRAZOLE SOLU-TAB 15 MG TABLET PO SCH ×2 (08:34→19:55)
[2016-12-30] MEDS: ALLOPURINOL 100 MG TABLET PO SCH (08:34)
[2016-12-30] MEDS: SALINE NASAL SPRAY 45ml EA NOSTRIL SCH ×4 (08:34→19:55)
[2016-12-30] MEDS: GUAIFENESIN DM 600mg/30mg TABLET PO SCH ×2 (08:34→19:54)
--- NOTE | 2016-12-30 11:22 | NUR ---
Status/PRN Pt is A/O x3. Pt has been in bed resting most of the morning. Pt does have redness and open areas to lt buttock, Dr. Davidson aware order was put in last night to check for Shingles, Dr. Davidson gave verbal order to cancel this order this morning. Pt denies pain this area. Did complain of NGO, [place] given. Pt also received prn breathing tx. Pt is able to ambulate in room on own. Ate most of breakfast, denies other needs at this time.
[2016-12-30] MEDS: LEVOFLOXACIN 750 MG TABLET PO SCH (11:39)
--- NOTE | 2016-12-30 21:02 | PNPDOC ---
Subjective Date DATE: 12/30/16 TIME: 20:57 Subjective The patient was seen earlier this evening accompanied by her daughter. She was feeling worn out by the day and did not feel ready to go home. She is continuing to have some cough. We have been able to wean down on her oxygen. Her fatigue has not been improving with addition of levothyroxin so far. She denies any pain. She is eating okay. She denies any other complaints. Objective Vital Signs Vital signs Vital Signs Date Time Temp Pulse Resp B/P Pulse Ox O2 Delivery O2 Flow Rate FiO2 12/30/16 20:36 Nasal Cannula 2.00 12/30/16 20:36 85 12/30/16 20:21 18 93 12/30/16 15:40 97.0 143/74 GEN-alert, oriented, no acute distress HEENT-sclera anicteric, oropharynx is moist NECK-supple CV-regular rate and rhythm CHEST-mild wheezing, upper airway rhonchi ABD-soft, nontender, nondistended with positive bowel sounds -no Jacome EXT-no edema NEURO-no focal deficits SKIN-warm and dry Height (Feet): 5 Height (Inches): 0.00 Weight (Kilograms): 83.900 Laboratory Laboratory Laboratory Tests 12/29/16 04:21 Assessment & Plan Problems: (1) Pneumonia Status: Resolved Qualifiers: Pneumonia type: due to unspecified organism Laterality: right Lung location: lower lobe of lung Qualified Codes: J18.1 - Lobar pneumonia, unspecified organism (2) Acute respiratory failure with hypoxia Status: Acute Assessment & Plan: present on admission. (3) COPD exacerbation Status: Acute (4) Atrial fibrillation with rapid ventricular response Status: Resolved Assessment & Plan: Onset 12/23 (5) Leukocytosis Status: Resolved Assessment & Plan: present on admission. (6) Hypernatremia Status: Resolved Assessment & Plan: present on admission. (7) HTN (hypertension) Status: Chronic (8) Atrial fibrillation, currently in sinus rhythm Status: Chronic Assessment & Plan: POA - RVR developed on 12/23 (9) Moderate to severe pulmonary hypertension Status: Chronic (10) Anxiety Status: Chronic (11) GERD (gastroesophageal reflux disease) Status: Chronic (12) Obesity (BMI 30-39.9) Status: Chronic Assessment 12/30/2016-Dr. 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 Galdamez Home tomorrow morning Code Status Full Code Hospital Course Summary Disclaimer The hospital course summary below is not to be considered part of the above Progress Note. Hospital Course Summary 12/19/16: Marc ADMIT - Assessment/Plan. Acute respiratory failure with hypoxia: * Admit to inpatient status under the care of Dr. Jarrett. * Monitor respiratory function closely with continuous pulse oximetry. * SCDs for DVT prophylaxis. Pneumonia, acute with leukocytosis (WBC 11.5 on admission): * CXR in ED showed increased prominence of right basilar airspace opacity, some of which is chronic although maybe superimposed atelectasis or pneumonia. * Levaquin 750mg IV daily initiated in ED for coverage of pulmonary pathogens. Blood cultures pending; monitor sensitivities. Will try and obtain sputum culture. * Acapella for pulmonary toileting. * Mucinex for mucolytic effect. * Respiratory support including breathing treatments - DuoNeb QID and PRN and budesonide BID. * Tessalon pearls and Ricola for cough. * Routine medications for bowel motivation. * Recheck CBC and BMP in AM to monitor blood counts, electrolytes and renal function. Acute COPD exacerbation: * Solu-medrol 125mg IV Q6H for pulmonary inflammation. Consider changing to oral prednisone when more stable. * Influenza swab negative. Will check respiratory panel now. Hypernatremia: * Initiate NS 75cc/hr for gentle hydration. Monitor closely for signs of fluid overload with daily weights. Hypertension, chronic: * Continue home Norvasc and Lasix; monitor blood pressure closely. History of a-fib, currently sinus rhythm: * Monitor closely on telemetry. Moderate to severe pulmonary hypertension: * Echocardiogram from 05/05/2014 - normal VL systolic function with EF 70%; biatrial dilation, mitral sclerosis and mild mitral regurg, mild tricuspid regurg with severe pulmonary hypertension with estimated pulmonary artery systolic pressure of 73. GERD: * Continue home Prevacid for GI protection and GERD. Anxiety, chronic: * Ativan as needed for anxiety. Obesity: Upon discharge, patient's care will be returned to her PCP, Dr. Santiago. 12/20 Doing a little better. Feels able to breath slightly better. Still with significant cough and congestion, not mobilizing sputum. Notes frontal NGO - feels from all the coughing. No nausea or ab pain. Eating well. Passing flatus. Urinating well. Did go for walk this am, but O2 saturations decreased to the 80' s. Potassium with increase, but with significant hemolysis. Continue Levaquin 750mg IV daily for antimicrobial coverage. Continue with Steroids and Neb treatments. Decrease IVF to 50cc/hr. Continue supplemental O2, weaning as able. Encourage ambulation as able. Will hold on am lab tomorrow due to pt's request. 12/21 Rough night-slept poorly. More SOA and O2 needed to be increased. Continued cough. Minimal sputum production. Does feel lungs starting to loosen up slightly. Eating well without nausea or ab pain. Did have bowel movement. Tongue starting to feel sore - worries about developing thrush. Urinating well. Did ambulate this am. Continue Levaquin 750mg IV daily for antimicrobial coverage. Day #3. Continue with Steroids and Neb treatments. Continue acapella use. Continue with supplemental O2. May d/c IVF as taking po well. Will place PICC line as having difficulty maintaining IV access. Start Mycelex to decrease risk of thrush - antibiotics and steroids risk factors. Encourage ambulation as able. Recheck BMP in am to assess electrolytes and renal status in light of medication use. Recheck CBC in am due to pneumonia CXR PA/Lat in am for F/U of infiltrate. 12/22 Feeling making gains. Did sleep better last night-still very tired and weak this am. Cough with decrease, not mobilizing sputum. Feels less SOA and congested. Eating well. Mouth much less discomfortable. Bowels moving. Working on ambulating to keep strength up. No f/c. Urinating well. Continue Levaquin 750mg IV daily for antimicrobial coverage. Day #4. Solu-Medrol continues Continue with DuoNeb and budesonide. Pt using Acapella routinely and finds is helpful. Continue with supplemental O2 - wean as able. Encourage ambulation to increase functional status. 12/23 More SOA today. O2 needs increased. Cough, but no sputum. No chest pain or pain with breathing. Not with nausea or ab pain. More tired and weak today. HR did increase around noon. EKG showing Afib with RVR. Diltiazem bolus of 5mgx1 and then 10mgx1 given without decrease in HR. Digoxin 0.5mg IV x1 given Monitor HR - if not decreasing will need to transfer to CCU for diltiazem drip. Continue Levaquin 750mg IV daily for antimicrobial coverage. Day #5. Decrease Solu-Medrol to 62.5mg IV q 6 hours. Continue with DuoNeb and budesonide. Continue Acapella. Continue with supplemental O2. 12/24 About the same. Breathing still very short and congested. Cough, but not able to mobilize sputum. Chest wall sore from coughing. Very tired and fatigued-did sleep okay last night, but just washed out this am. No chest pressure or heaviness. No nausea. Eating okay. Ab with slight bloating-feels like she needs to have bowel movement. Urinating well. No f/c. Converted to NSR yesterday evening. Will continue with Digoxin. Change Norvasc to Cardizem 180mg to help BP and HR. Diamox 500mg today to help motivate fluid and minimize contraction alkalosis. Continue Levaquin 750mg IV daily for antimicrobial coverage. Day #6. Continue Solu-Medrol to 62.5mg IV q 6 hours. Continue with DuoNeb and budesonide. Continue Acapella. Encourage deep breathing for gas exchange. Continue with supplemental O2, using lowest flow to keep sats 89-91%. Recheck CXR in am. Repeat BMP in am due to medication use. 12/25/16 Overall fatigued and worn out. Discussed resting today and attempting to get up with PT tomorrow Continues in NSR on telemetry. Continue with Cardizem and digoxin Today is day 7 of Levaquin antibiotic Chest X-ray this morning does show a slight improvement in bibasilar atelectasis Continue with scheduled Solu-Medrol every 6 hours for pulmonary inflammation Continue with scheduled DuoNeb and budesonide. Continue Acapella. Will place PT/OT order for tomorrow 12/26/2016-Dr. Davidson Acute hypoxic respiratory failure-currently requiring 3 L Pneumonia-improving, day 7 Levaquin, change to oral. Check chest x-ray tomorrow COPD exacerbation-requiring 3 L of oxygen, was only needing 2 L at night at home. Change to oral steroids. Continue breathing treatments. Continue incentive spirometer and Acapella. A. fib with RVR-resolved Suppressed TSH-check free T3 and free T4 Leukocytosis-resolved Anxiety-change lorazepam to by mouth Questionable chest tightness-check EKG and troponin, doubt cardiac PT saw the patient and recommended home with home health. OT recommended home. Hyperglycemia-likely secondary to steroids, change to ADA diet Possibly home in the next 1-2 days. Discussed with the patient's daughter. Discussed with case management. Greater than 35 minutes of time spent seeing and evaluating the patient, reviewing chart, and determining care plan. 12/27/16 In regards to acute on chronic respiratory failure, patient is currently requiring 3 liters of oxygen by nasal cannula chronically. She'll likely need to be discharged home on 24-hour oxygen. Today is day 8 of Levaquin. Chest x-ray repeated this morning does show an improvement in right-sided pneumonia. Continue with oral steroids for acute pulmonary. Patient does voice concern of steroid taper as she feels that every time she is off of steroid she gets another exacerbation. She does have a field sales consultant, Dr. Ford in [place]. May need to discuss discharge plan. Consult placed to Dr. Galdamez in regards to thyroid abnormalities. Appreciate his expertise in endocrinology. Serial troponins were evaluated, however, never elevated to a critical level. Likely chest "congestion"/pressure is pulmonary in nature We did discuss in great detail regarding her discharge plans. She does want to go home independently, however, agrees that she needs home health assistance. She would also like to have PT and OT for continued strengthening Will discuss further plan of care with Dr. Davidson 12/28/16 Wheezing continues to be moderate, noted that weight is up this morning. Will give 20 grams of IV Lasix 1 now. Continue to work on weaning oxygen as able. Today is day 9 of Levaquin for treatment of pneumonia, which appears to be improving on x-ray. Continue on prednisone 30 milligrams daily for pulmonary inflammation. Continue with scheduled DuoNeb and Pulmicort breathing treatments. Encourage the use of Tessalon Perles and Mucinex to help with coughing. Reverse T3 lab is pending for further endocrinology evaluation. Patient is started on levothyroxine 50 micrograms daily PT and OT for continued strengthening Delma continues to verbalize her fear and anxiety regarding being discharged Will discuss further plan of care with Dr. Davidson 12/28/2016-I reviewed this chart, the patient history, and the ROOM COOLER INSTALLER's/PA's documented findings as above. We discussed and formulated the assessment and plan as above with the additions below.-Dr. Davidson Patient states she feels a little bit better today. She's not coughing quite as much. She is down to 2 L of oxygen. She is still worried about her breathing worsening when she goes home. She is eating okay. On exam she is alert and oriented and in no acute distress. She does cough during the exam. Chest reveals continued wheezing throughout but a little better than yesterday. Cardiovascular reveals a regular rate and rhythm. Abdomen is soft and nontender. Extremities are free of edema. In a dose of Lasix today to see if this would help with her breathing. I talked with Dr. Galdamez earlier today and the patient was started on Synthroid low-dose. Reverse T3 was ordered and obtained prior to starting Synthroid. Hopefully the thyroid replacement will help with her excessive fatigue. Possibly home in the next 1-2 days. 12/29/2016-Dr. Davidson Re: COPD exacerbation-continue with current treatment regarding pneumonia-we'll likely discontinue Levaquin after discharge Regarding possible shingles-likely start oral medication tomorrow. 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 Discussed with Dr. Galdamez. He recommends continuing Synthroid 50 g daily and following up 3-4 weeks. Patient continues to feel fatigued. Hopefully discharge tomorrow. FOZIA DAVIDSON MD Dec 30, 2016 21:02
[2016-12-30] MEDS: GABAPENTIN 600 MG TABLET PO SCH (22:16)
[2016-12-30] MEDS: LORAZEPAM 0.5 MG TABLET PO SCH (22:16)
[2016-12-31] VITALS (7 sets, daily range): BP systolic 149–159; BP diastolic 69–71; PULSE 73–88; RESP 15–22; TEMP 96.6–97; O2SAT 92–96
--- NOTE | 2016-12-31 03:10 | NUR ---
STATUS PT AWOKE SUDDENLY COMPLAINT OF ANXIOUS FEELING WITH PAIN IN HER CHEST AND FEELING SHORT OF BREATH LIKE SHE CANNOT GET A BGOOD BREATH. PT HR 73 NOTED ON ECG TO HAVE OCCASIONAL PVC'S. BP 143/67 SP02 95% 2L NC. TIGER TEXT TO DR. JHAVERI WITH REQUEST FOR ORDERS ON TREATMENT. PT REQUESTING ATIVAN STATING IT WAS A PANIC ATTACK, CONCERNED ABOUT CHEST PAIN AND SOA.
--- NOTE | 2016-12-31 03:14 | NUR ---
PROVIDER CALL DR. JHAVERI CALLED AT THIS TIME REQUEST TO GIVE PT ATIVAN AND HAVE EKG PERFORMED AND FAXED TO HIM.
[2016-12-31] MEDS: LORAZEPAM 0.5 MG TABLET PO PRN (03:25)
--- NOTE | 2016-12-31 05:44 | NUR ---
PROVIDER CALL DR. JHAVERI CALLED BACK AT THIS TIME ABOUT PT EKG FAXED TO HIM. NO CONCERN AT THIS TIME, PT MORE COMFORTABLE NO CHEST PAIN AT THIS TIME. WILL CONTINUE TO MONITOR PT AND NOTIFY PROVIDER OF ANY CHANGES.
--- NOTE | 2016-12-31 06:27 | NUR ---
SHIFT SUMMARY PT A&O X3. PT PLEASANT AND APPROPRIATE. PT HAD MINIMAL COMPLAINT THROUGHOUT THE NIGHT UNTIL AROUND 0300 WHEN SHE AWOKE AND HAD CHEST PAIN. SINCE PT HAS BEEN COMFORTABLE IN BED WITH NO COMPLAINTS. PT SLEPT BETTER THIS EVENING. PT INSISTS THAT SHE IS GOING HOME IN THE MORNING. PT ON OXYGEN SHE ADJUSTS NEEDED FOR SOA WITH EXERTION. PT UP AD MATTY TO RESTROOM.
[2016-12-31] MEDS: BUDESONIDE INH.SOLN. 0.5mg/2ml NEB AEROSOL SCH ×2 (06:36→21:03)
[2016-12-31] MEDS: ALBUTEROL/IPRATROPIUM INHAL. 2.5mg-0.5mg/3ml Neb. AEROSOL SCH ×4 (06:37→21:03)
[2016-12-31] MEDS: LEVOTHYROXINE 50 MCG TABLET PO SCH (06:47)
[2016-12-31] MEDS: CLOTRIMAZOLE 10 MG TROCHE PO SCH ×5 (06:48→23:12)
--- NOTE | 2016-12-31 07:00 | NUR ---
BEGINNING OF SHIFT PT IS AWAKE AND A&OX3, RESP RATE IS RAPID AND SHALLOW, COARSE LUNG SOUNDS AUSCULTATED THROUGHOUT. PT WEARING 2L OF NC, DENIES ANY PAIN, REPORTS SHE IS SUPPOSED TO GO HOME TODAY. DENIES ANY NEEDS AT THIS TIME.
[2016-12-31] MEDS: SALINE NASAL SPRAY 45ml EA NOSTRIL SCH ×4 (07:48→21:21)
[2016-12-31] MEDS: DOCUSATE SODIUM 100 MG CAPSULE PO SCH ×2 (07:48→21:20)
[2016-12-31] MEDS: DILTIAZEM CD 180 MG PO SCH (07:48)
[2016-12-31] MEDS: ASPIRIN 81 MG CHEWABLE TABLET PO SCH (07:48)
[2016-12-31] MEDS: LANSOPRAZOLE SOLU-TAB 15 MG TABLET PO SCH ×2 (07:48→21:20)
[2016-12-31] MEDS: ALLOPURINOL 100 MG TABLET PO SCH (07:48)
[2016-12-31] MEDS: GUAIFENESIN DM 600mg/30mg TABLET PO SCH ×2 (07:48→21:20)
[2016-12-31] MEDS: CITALOPRAM 10mg TABLET PO SCH (07:48)
[2016-12-31] MEDS: PredniSONE 10 MG TABLET PO SCH (07:48)
--- NOTE | 2016-12-31 10:40 | NUR ---
STATUS DR JOHNSON AT BEDSIDE. STATES WE WILL CONTINUE TO MONITOR PT TODAY AND REPEAT LAB WORK WELL X-RAY. PT REPORTS SOME SOA, STILL WHEEZE. BLOOD DRAWN FROM PTS MIDLINE. HUB CHANGED AND FLUSHED WITH 20ML OF NS.
[2016-12-31 10:45] LABS: HCT - HEMATOCRIT 38.9 % (36-46); HGB - HEMOGLOBIN 12.6 GM/DL (12-16); MEAN CORPUSCULAR HGB 29.4 UUG (26-34); MEAN CORPUSCULAR HGB CONC(MCHC 32.4 GM/DL (31-37); MEAN CORPUSCULAR VOLUME 90.7 UM3 (80-100); MEAN PLATELET VOLUME 10.5 UM3 (9.4-12.4); RED BLOOD COUNT 4.29 M/MM3 (4.00-5.20); WBC - WHITE BLOOD COUNT 13.7 T/MM3 (4.5-11.0)
[2016-12-31 10:57] LABS: ANION GAP 4 MEQ/L (5-15); BUN/CREATININE RATIO 23 RATIO (6-26); CALCIUM 9.3 MG/DL (8.4-10.2); CHLORIDE 95 MEQ/L (98-107); CO2 - CARBON DIOXIDE 33 MEQ/L (22-30); GLOMERULAR FILTRATION RATE 54; GLUCOSE 113 MG/DL (65-110); POTASSIUM 5.2 MEQ/L (3.6-5); SODIUM 132 MEQ/L (134-144)
[2016-12-31 11:16] LABS: BAND NEUTROPHILS # 0.5 T/MM3; EOSINOPHILS # (MANUAL) 0.3 T/MM3 (0-0.5); LYMPHOCYTES # (MANUAL) 0.3 T/MM3 (1-4.8); METAMYELOCYTES # 0.1 T/MM3; MONOCYTES # (MANUAL) 0.7 T/MM3 (0-0.8); NEUTROPHILS #(MANUAL)-ABSOLUTE 11.8 T/MM3 (1.8-7.7); TOTAL CELLS COUNTED 100 %
[2016-12-31] MEDS: ACETAMINOPHEN 500 MG TABLET PO PRN (13:36)
--- NOTE | 2016-12-31 13:46 | DI ---
INDICATION: ITS.REASON: dyspnea, copd exac recent pneumonia PROCEDURE: CHEST 2-VIEWS UPRIGHT (PA \T\ LAT) Encounter: Initial COMPARISON: December 27, 2016 FINDINGS: Right lower lobe pneumonia continues to improve with minimal residual opacity. There is some new platelike atelectasis in the left lower lobe. Upper lung mott are clear. No pneumothorax or significant pleural fluid. Heart size and mediastinal contours are within normal limits. Pulmonary vascularity appears normal. Impression: Continued improvement in the right lower lobe pneumonia which has nearly resolved. .
--- NOTE | 2016-12-31 18:31 | NUR ---
SHIFT SUMMARY PT WAS UNABLE TO GO HOME TODAY DUE TO INCREASED SHORTNESS OF AIR EARLY THIS AM. HOWEVER PT WAS ABLE TO AMBULATE TWICE, ONCE DURING THE AFTERNOON AND ONCE DURING THE EVENING, BOTH TIMES HER O2 SAT DROPPED TO 90% WHILE ON 2L WHEN WALKING BUT PT WAS ABLE TO TOLERATE WELL. PT HAS COARSE LUNG SOUNDS THROUGHOUT, X-RAY TODAY SHOWED IMPROVEMENT OF THE PNEUMONIA. PT CONTINUES TO GET SCHEDULED BREATHING TREATMENTS, DENIES ANY PAIN.
--- NOTE | 2016-12-31 20:21 | PNPDOC ---
Subjective Date DATE: 12/31/16 TIME: 20:11 Subjective The patient was seen this morning and she was still complaining of cough and excessive fatigue. She stated she had an episode of chest pain and shortness of breath that awoke her from sleep. She wonders if it was a panic attack. Symptoms resolved with Ativan. She denied any associated nausea or sweating. The pain did not radiate anywhere. She has no further chest pain. She is urinating well. She did have a bowel movement today. Objective Vital Signs Vital signs Vital Signs Date Time Temp Pulse Resp B/P Pulse Ox O2 Delivery O2 Flow Rate FiO2 12/31/16 15:52 20 95 12/31/16 15:52 69 12/31/16 15:28 96.6 149/69 Nasal Cannula 2.00 Weight is stable GEN-alert, oriented, no acute distress, respiratory rate is 26 HEENT-clear and anicteric, oropharynx is moist NECK-supple CV-regular rate and rhythm CHEST-mild coarse upper airway rhonchi, minimal end expiratory wheezing ABD-soft, nontender, nondistended with positive bowel sounds -no Jacome EXT-no edema NEURO-no focal deficits SKIN-warm and dry without rashes Height (Feet): 5 Height (Inches): 0.00 Weight (Kilograms): 84.200 Laboratory Laboratory Laboratory Tests 12/31/16 10:32 Laboratory Tests 12/31/16 10:32 Troponin 0.034 EKG EKG shows sinus rhythm, minimal voltage for LVH, nonspecific T-wave abnormalities overall looks okay- Radiology Chest x-ray on my read and per radiology showed continued improvement in the right lower lobe pneumonia which has nearly resolved Assessment & Plan Problems: (1) Pneumonia Status: Resolved Qualifiers: Pneumonia type: due to unspecified organism Laterality: right Lung location: lower lobe of lung Qualified Codes: J18.1 - Lobar pneumonia, unspecified organism (2) Acute respiratory failure with hypoxia Status: Acute Assessment & Plan: present on admission. (3) COPD exacerbation Status: Acute (4) Atrial fibrillation with rapid ventricular response Status: Resolved Assessment & Plan: Onset 12/23 (5) Leukocytosis Status: Resolved Assessment & Plan: present on admission. (6) Hypernatremia Status: Resolved Assessment & Plan: present on admission. (7) HTN (hypertension) Status: Chronic (8) Atrial fibrillation, currently in sinus rhythm Status: Chronic Assessment & Plan: POA - RVR developed on 12/23 (9) Moderate to severe pulmonary hypertension Status: Chronic (10) Anxiety Status: Chronic (11) GERD (gastroesophageal reflux disease) Status: Chronic (12) Obesity (BMI 30-39.9) Status: Chronic Assessment 12/31/2016-Dr. 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 Galdamez Hypokalemia Hyponatremia Impression Had increased respiratory rate and cough this morning. Chest x-ray was obtained and fortunately showed improvement. She continues to have excessive fatigue. Hopefully she will be stable for discharge tomorrow. Regarding chest pain, EKG and troponin were okay. She most likely had an anxiety attack. Symptoms resolved with Ativan. Hopefully home tomorrow. We'll recheck basic metabolic profile regarding hyperkalemia and hyponatremia DVT Prophylaxis: SCD'S Code Status Full Code Hospital Course Summary Disclaimer The hospital course summary below is not to be considered part of the above Progress Note. Hospital Course Summary 12/19/16: Marc ADMIT - Assessment/Plan. Acute respiratory failure with hypoxia: * Admit to inpatient status under the care of Dr. Jarrett. * Monitor respiratory function closely with continuous pulse oximetry. * SCDs for DVT prophylaxis. Pneumonia, acute with leukocytosis (WBC 11.5 on admission): * CXR in ED showed increased prominence of right basilar airspace opacity, some of which is chronic although maybe superimposed atelectasis or pneumonia. * Levaquin 750mg IV daily initiated in ED for coverage of pulmonary pathogens. Blood cultures pending; monitor sensitivities. Will try and obtain sputum culture. * Acapella for pulmonary toileting. * Mucinex for mucolytic effect. * Respiratory support including breathing treatments - DuoNeb QID and PRN and budesonide BID. * Tessalon pearls and Ricola for cough. * Routine medications for bowel motivation. * Recheck CBC and BMP in AM to monitor blood counts, electrolytes and renal function. Acute COPD exacerbation: * Solu-medrol 125mg IV Q6H for pulmonary inflammation. Consider changing to oral prednisone when more stable. * Influenza swab negative. Will check respiratory panel now. Hypernatremia: * Initiate NS 75cc/hr for gentle hydration. Monitor closely for signs of fluid overload with daily weights. Hypertension, chronic: * Continue home Norvasc and Lasix; monitor blood pressure closely. History of a-fib, currently sinus rhythm: * Monitor closely on telemetry. Moderate to severe pulmonary hypertension: * Echocardiogram from 05/05/2014 - normal VL systolic function with EF 70%; biatrial dilation, mitral sclerosis and mild mitral regurg, mild tricuspid regurg with severe pulmonary hypertension with estimated pulmonary artery systolic pressure of 73. GERD: * Continue home Prevacid for GI protection and GERD. Anxiety, chronic: * Ativan as needed for anxiety. Obesity: Upon discharge, patient's care will be returned to her PCP, Dr. Santiago. 12/20 Doing a little better. Feels able to breath slightly better. Still with significant cough and congestion, not mobilizing sputum. Notes frontal NGO - feels from all the coughing. No nausea or ab pain. Eating well. Passing flatus. Urinating well. Did go for walk this am, but O2 saturations decreased to the 80' s. Potassium with increase, but with significant hemolysis. Continue Levaquin 750mg IV daily for antimicrobial coverage. Continue with Steroids and Neb treatments. Decrease IVF to 50cc/hr. Continue supplemental O2, weaning as able. Encourage ambulation as able. Will hold on am lab tomorrow due to pt's request. 12/21 Rough night-slept poorly. More SOA and O2 needed to be increased. Continued cough. Minimal sputum production. Does feel lungs starting to loosen up slightly. Eating well without nausea or ab pain. Did have bowel movement. Tongue starting to feel sore - worries about developing thrush. Urinating well. Did ambulate this am. Continue Levaquin 750mg IV daily for antimicrobial coverage. Day #3. Continue with Steroids and Neb treatments. Continue acapella use. Continue with supplemental O2. May d/c IVF as taking po well. Will place PICC line as having difficulty maintaining IV access. Start Mycelex to decrease risk of thrush - antibiotics and steroids risk factors. Encourage ambulation as able. Recheck BMP in am to assess electrolytes and renal status in light of medication use. Recheck CBC in am due to pneumonia CXR PA/Lat in am for F/U of infiltrate. 12/22 Feeling making gains. Did sleep better last night-still very tired and weak this am. Cough with decrease, not mobilizing sputum. Feels less SOA and congested. Eating well. Mouth much less discomfortable. Bowels moving. Working on ambulating to keep strength up. No f/c. Urinating well. Continue Levaquin 750mg IV daily for antimicrobial coverage. Day #4. Solu-Medrol continues Continue with DuoNeb and budesonide. Pt using Acapella routinely and finds is helpful. Continue with supplemental O2 - wean as able. Encourage ambulation to increase functional status. 12/23 More SOA today. O2 needs increased. Cough, but no sputum. No chest pain or pain with breathing. Not with nausea or ab pain. More tired and weak today. HR did increase around noon. EKG showing Afib with RVR. Diltiazem bolus of 5mgx1 and then 10mgx1 given without decrease in HR. Digoxin 0.5mg IV x1 given Monitor HR - if not decreasing will need to transfer to CCU for diltiazem drip. Continue Levaquin 750mg IV daily for antimicrobial coverage. Day #5. Decrease Solu-Medrol to 62.5mg IV q 6 hours. Continue with DuoNeb and budesonide. Continue Acapella. Continue with supplemental O2. 12/24 About the same. Breathing still very short and congested. Cough, but not able to mobilize sputum. Chest wall sore from coughing. Very tired and fatigued-did sleep okay last night, but just washed out this am. No chest pressure or heaviness. No nausea. Eating okay. Ab with slight bloating-feels like she needs to have bowel movement. Urinating well. No f/c. Converted to NSR yesterday evening. Will continue with Digoxin. Change Norvasc to Cardizem 180mg to help BP and HR. Diamox 500mg today to help motivate fluid and minimize contraction alkalosis. Continue Levaquin 750mg IV daily for antimicrobial coverage. Day #6. Continue Solu-Medrol to 62.5mg IV q 6 hours. Continue with DuoNeb and budesonide. Continue Acapella. Encourage deep breathing for gas exchange. Continue with supplemental O2, using lowest flow to keep sats 89-91%. Recheck CXR in am. Repeat BMP in am due to medication use. 12/25/16 Overall fatigued and worn out. Discussed resting today and attempting to get up with PT tomorrow Continues in NSR on telemetry. Continue with Cardizem and digoxin Today is day 7 of Levaquin antibiotic Chest X-ray this morning does show a slight improvement in bibasilar atelectasis Continue with scheduled Solu-Medrol every 6 hours for pulmonary inflammation Continue with scheduled DuoNeb and budesonide. Continue Acapella. Will place PT/OT order for tomorrow 12/26/2016-Dr. Davidson Acute hypoxic respiratory failure-currently requiring 3 L Pneumonia-improving, day 7 Levaquin, change to oral. Check chest x-ray tomorrow COPD exacerbation-requiring 3 L of oxygen, was only needing 2 L at night at home. Change to oral steroids. Continue breathing treatments. Continue incentive spirometer and Acapella. A. fib with RVR-resolved Suppressed TSH-check free T3 and free T4 Leukocytosis-resolved Anxiety-change lorazepam to by mouth Questionable chest tightness-check EKG and troponin, doubt cardiac PT saw the patient and recommended home with home health. OT recommended home. Hyperglycemia-likely secondary to steroids, change to ADA diet Possibly home in the next 1-2 days. Discussed with the patient's daughter. Discussed with case management. Greater than 35 minutes of time spent seeing and evaluating the patient, reviewing chart, and determining care plan. 12/27/16 In regards to acute on chronic respiratory failure, patient is currently requiring 3 liters of oxygen by nasal cannula chronically. She'll likely need to be discharged home on 24-hour oxygen. Today is day 8 of Levaquin. Chest x-ray repeated this morning does show an improvement in right-sided pneumonia. Continue with oral steroids for acute pulmonary. Patient does voice concern of steroid taper as she feels that every time she is off of steroid she gets another exacerbation. 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 Ford in [place]. May need to discuss discharge plan. Consult placed to Dr. Galdamez in regards to thyroid abnormalities. Appreciate his expertise in endocrinology. Serial troponins were evaluated, however, never elevated to a critical level. Likely chest "congestion"/pressure is pulmonary in nature We did discuss in great detail regarding her discharge plans. She does want to go home independently, however, agrees that she needs home health assistance. She would also like to have PT and OT for continued strengthening Will discuss further plan of care with Dr. Davidson 12/28/16 Wheezing continues to be moderate, noted that weight is up this morning. Will give 20 grams of IV Lasix 1 now. Continue to work on weaning oxygen as able. Today is day 9 of Levaquin for treatment of pneumonia, which appears to be improving on x-ray. Continue on prednisone 30 milligrams daily for pulmonary inflammation. Continue with scheduled DuoNeb and Pulmicort breathing treatments. Encourage the use of Tessalon Perles and Mucinex to help with coughing. Reverse T3 lab is pending for further endocrinology evaluation. Patient is started on levothyroxine 50 micrograms daily PT and OT for continued strengthening Delma continues to verbalize her fear and anxiety regarding being discharged Will discuss further plan of care with Dr. Davidson 12/28/2016-I reviewed this chart, the patient history, and the [employer]'s/PA's documented findings as above. We discussed and formulated the assessment and plan as above with the additions below.-Dr. Davidson Patient states she feels a little bit better today. She's not coughing quite as much. She is down to 2 L of oxygen. She is still worried about her breathing worsening when she goes home. She is eating okay. On exam she is alert and oriented and in no acute distress. She does cough during the exam. Chest reveals continued wheezing throughout but a little better than yesterday. Cardiovascular reveals a regular rate and rhythm. Abdomen is soft and nontender. Extremities are free of edema. In a dose of Lasix today to see if this would help with her breathing. I talked with Dr. Galdamez earlier today and the patient was started on Synthroid low-dose. Reverse T3 was ordered and obtained prior to starting Synthroid. Hopefully the thyroid replacement will help with her excessive fatigue. Possibly home in the next 1-2 days. 12/29/2016-Dr. Davidson Re: COPD exacerbation-continue with current treatment regarding pneumonia-we'll likely discontinue Levaquin after discharge Regarding possible shingles-likely start oral medication tomorrow. 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 Discussed with Dr. Galdamez. He recommends continuing Synthroid 50 g daily and following up 3-4 weeks. Patient continues to feel fatigued. Hopefully discharge tomorrow. 12/30/2016-Dr. 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 Galdamez Home tomorrow morning FOZIA DAVIDSON MD Dec 31, 2016 20:14
[2016-12-31] MEDS: LORAZEPAM 0.5 MG TABLET PO SCH (21:20)
[2016-12-31] MEDS: PROMETHAZINE/CODEINE ORAL SYRUP PO PRN (21:20)
[2016-12-31] MEDS: GABAPENTIN 600 MG TABLET PO SCH (21:20)
[2016-12-31] MEDS: MENTHOL COUGH DROPS (RICOLA) MM PRN (23:12)
--- NOTE | 2016-12-31 23:15 | NUR ---
PRN PT WAS GIVEN PRN COUGH MEDICINE AND LOZENGES PER HER REQUEST. PT IN BED WATCHING TV.
[2017-01-01 00:13] VITALS: BP 126/56; PULSE 79; RESP 20; TEMP 97.4; O2SAT 90
[2017-01-01] MEDS: LEVOTHYROXINE 50 MCG TABLET PO SCH (05:59)
[2017-01-01] MEDS: CLOTRIMAZOLE 10 MG TROCHE PO SCH ×2 (05:59→11:09)
--- NOTE | 2017-01-01 06:30 | NUR ---
SUMMARY. PT ALERT AND ORIENTED. AMBULATING ALONG THE HALLWAY WITH NO ASSIST. GAIT STEADY. PT USING PORTABLE O2 AT THE MOMENT. USING 4L/NC WHEN AMBULATING. PT O2 LEVELS 92% WHEN AMBULATING. DENIED ANY PAIN THIS SHIFT. WAS GIVEN PRN COUGH MEDICATION AT THE BEGINNING OF THE SHIFT. PT IS ON 2L/NC WHEN SLEEPING. PT HAS A DRY COUGH. EDUCATED ABOUT USE OF CALL LIGHT AND PT SAFETY.
[2017-01-01] MEDS: ALBUTEROL/IPRATROPIUM INHAL. 2.5mg-0.5mg/3ml Neb. AEROSOL SCH ×2 (07:00→10:43)
[2017-01-01] MEDS: BUDESONIDE INH.SOLN. 0.5mg/2ml NEB AEROSOL SCH (07:23)
[2017-01-01 07:25] VITALS: O2SAT 95
[2017-01-01 08:00] VITALS: BP 156/70; PULSE 84; RESP 18; TEMP 96.7; O2SAT 90
[2017-01-01] MEDS: ASPIRIN 81 MG CHEWABLE TABLET PO SCH (08:25)
[2017-01-01] MEDS: ALLOPURINOL 100 MG TABLET PO SCH (08:26)
[2017-01-01] MEDS: HYDROCODONE/APAP 5 mg/325 mg TABLET PO PRN (08:26)
[2017-01-01] MEDS: GUAIFENESIN DM 600mg/30mg TABLET PO SCH (08:26)
[2017-01-01] MEDS: SALINE NASAL SPRAY 45ml EA NOSTRIL SCH ×2 (08:27→13:34)
[2017-01-01] MEDS: LANSOPRAZOLE SOLU-TAB 15 MG TABLET PO SCH (08:27)
[2017-01-01] MEDS: DILTIAZEM CD 180 MG PO SCH (08:27)
[2017-01-01] MEDS: PredniSONE 10 MG TABLET PO SCH (08:27)
[2017-01-01] MEDS: CITALOPRAM 10mg TABLET PO SCH (08:27)
[2017-01-01] MEDS: DOCUSATE SODIUM 100 MG CAPSULE PO SCH (08:27)
[2017-01-01] MEDS: BENZONATATE 200 MG CAPSULE PO PRN (08:28)
[2017-01-01 08:30] LABS: HCT - HEMATOCRIT 39.3 % (36-46); HGB - HEMOGLOBIN 12.8 GM/DL (12-16); MEAN CORPUSCULAR HGB 29.6 UUG (26-34); MEAN CORPUSCULAR HGB CONC(MCHC 32.6 GM/DL (31-37); RED BLOOD COUNT 4.32 M/MM3 (4.00-5.20); WBC - WHITE BLOOD COUNT 11.3 T/MM3 (4.5-11.0)
--- NOTE | 2017-01-01 08:40 | PNPDOC ---
Subjective Date DATE: 01/01/17 TIME: 08:38 Subjective Tolerating Synthroid without problems. No palpitations. Objective Vital Signs Vital Signs Vital Signs 12/31/16 12/31/16 12/31/16 12/31/16 20:57 20:57 21:12 21:14 Pulse 74 78 Resp 18 Pulse Ox 94 O2 Delivery Nasal Cannula O2 Flow Rate 2.00 01/01/17 01/01/17 01/01/17 01/01/17 00:13 07:24 07:25 07:30 Temp 97.4 Pulse 79 76 79 Resp 20 16 B/P 126/56 Pulse Ox 90 95 O2 Delivery Nasal Cannula O2 Flow Rate 2.00 Height (Feet): 5 Height (Inches): 0.00 Weight (Kilograms): 84.200 General General Nourishment: Well Nourished, Well Developed, Obese, Adult Eyes (Brief) Eyes Brief: FOUND: EOMI, PERRL Neck (Brief) Neck Brief: NOT FOUND: adenopathy, thyromegaly Respiratory (Brief) Respiratory Brief: FOUND rales Cardiovascular (Brief) Cardiac Brief: FOUND: regular rate, regular rhythm, NOT FOUND: pedal edema Abdomen (Brief) Abdominal Brief: FOUND: BS normo active x4 Integumentary(Brief) Integumentary Brief: FOUND: dry, warm Neurologic(Brief) Neurological Brief: FOUND: motor Psychiatric(Brief) Psychiatric Brief: FOUND: alert, attentive, normal affect, oriented Laboratory Laboratory Laboratory Tests Test 12/31/16 10:32 01/01/17 08:17 Anion Gap 4MEQ/L (5-15) Pending BUN/Creatinine Ratio 23RATIO (6-26) Pending Blood Urea Nitrogen 23.0MG/DL (7-17) Pending Calcium Level 9.3MG/DL (8.4-10.2) Pending Calculated Osmolality 260MOSM/KG (261-280) Pending Carbon Dioxide Level 33MEQ/L (22-30) Pending Chloride Level 95MEQ/L (98-107) Pending Creatinine 1.0MG/DL (0.7-1.2) Pending Glomerular Filtration Rate Calc 54 Pending Glucose Level 113MG/DL (65-110) Pending Potassium Level 5.2MEQ/L (3.6-5) Pending Sodium Level 132MEQ/L (134-144) Pending Laboratory Tests Test 12/31/16 10:32 01/01/17 08:17 White Blood Count 13.7T/MM3 (4.5-11.0) 11.3T/MM3 (4.5-11.0) Red Blood Count 4.29M/MM3 (4.00-5.20) 4.32M/MM3 (4.00-5.20) Hemoglobin 12.6GM/DL (12-16) 12.8GM/DL (12-16) Hematocrit 38.9% (36-46) 39.3% (36-46) Mean Corpuscular Volume 90.7UM3 (80-100) 91.0UM3 (80-100) Mean Corpuscular Hemoglobin 29.4UUG (26-34) 29.6UUG (26-34) Mean Corpuscular Hemoglobin Concent 32.4GM/DL (31-37) 32.6GM/DL (31-37) RDW Standard Deviation 48.1FL (36.9-50.2) 47.2FL (36.9-50.2) Platelet Count 139T/MM3 (130-400) 130T/MM3 (130-400) Mean Platelet Volume 10.5UM3 (9.4-12.4) 11.0UM3 (9.4-12.4) Neutrophils % (Manual) 86.0% (33-66) Band Neutrophils % 4.0% (0-6) Lymphocytes % (Manual) 2.0% (23-45) Monocytes % (Manual) 5.0% (0-9.0) Eosinophils % (Manual) 2.0% (0-4) Metamyelocytes % 1.0% (0-0) Absolute Neutrophils (Manual) 11.8T/MM3 (1.8-7.7) Band Neutrophils # 0.5T/MM3 Lymphocytes # (Manual) 0.3T/MM3 (1-4.8) Monocytes # (Manual) 0.7T/MM3 (0-0.8) Eosinophils # (Manual) 0.3T/MM3 (0-0.5) Metamyelocytes # 0.1T/MM3 Red Cell Morphology Comment Normal Turbidity < 20 (0-20) Sodium Level 132MEQ/L (134-144) Potassium Level 5.2MEQ/L (3.6-5) Chloride Level 95MEQ/L (98-107) Carbon Dioxide Level 33MEQ/L (22-30) Anion Gap 4MEQ/L (5-15) Blood Urea Nitrogen 23.0MG/DL (7-17) Creatinine 1.0MG/DL (0.7-1.2) Glomerular Filtration Rate Calc 54 BUN/Creatinine Ratio 23RATIO (6-26) Glucose Level 113MG/DL (65-110) Calculated Osmolality 260MOSM/KG (261-280) Calcium Level 9.3MG/DL (8.4-10.2) Icterus Index < 2 (0-7) Troponin I 0.034ng/ml (0-0.12) Chemistry Specimen Hemolysis < 15 (0-25) Assessment & Plan Problems: (1) Abnormal thyroid blood test Status: Acute Assessment & Plan: The rT3 is still pending and will need to be followed up as an outpatient. Unclear whether low TSH, FT4 and FT3 are due to euthyroid sick syndrome vs central hypothyroidism. Would advise continuing Synthroid 50 mcg until office followup which should be in 3-4 weeks. ABIGAIL STEELE MD Jan 01, 2017 08:40
[2017-01-01 08:42] LABS: ANION GAP 9 MEQ/L (5-15); BUN/CREATININE RATIO 24 RATIO (6-26); CALCIUM 9.3 MG/DL (8.4-10.2); CHLORIDE 98 MEQ/L (98-107); CO2 - CARBON DIOXIDE 31 MEQ/L (22-30); GLOMERULAR FILTRATION RATE 54; GLUCOSE 94 MG/DL (65-110); POTASSIUM 4.1 MEQ/L (3.6-5); SODIUM 138 MEQ/L (134-144)
[2017-01-01 08:56] LABS: BAND NEUTROPHILS # 0.3 T/MM3; EOSINOPHILS # (MANUAL) 0.5 T/MM3 (0-0.5); LYMPHOCYTES # (MANUAL) 1.4 T/MM3 (1-4.8); MONOCYTES # (MANUAL) 0.8 T/MM3 (0-0.8); NEUTROPHILS #(MANUAL)-ABSOLUTE 8.4 T/MM3 (1.8-7.7); TOTAL CELLS COUNTED 100 %
[2017-01-01 09:53] VITALS: PULSE 112
[2017-01-01 10:44] VITALS: O2SAT 92
--- NOTE | 2017-01-01 12:08 | NUR ---
SCARLETT CM PT PLANS TO DC TO HOME. PT SON WILL COME TO GET HER AND IS ABLE TO COME ANY TIME. PT WILL DC TO HOME WITH [facility].
[2017-01-01] MEDS ORDERED: DILT180C63 PO (13:42)
[2017-01-01] MEDS ORDERED: POLY17PO18 PO (13:42)
[2017-01-01] MEDS ORDERED: DOCU-168 PO (13:42)
[2017-01-01] MEDS ORDERED: LORA0.5T86 PO (13:42)
[2017-01-01] MEDS ORDERED: IPRA3AMP AEROSOL (13:42)
[2017-01-01] MEDS ORDERED: PRED10TA PO (13:42)
[2017-01-01] MEDS ORDERED: BENZ200C36 PO (13:42)
[2017-01-01] MEDS ORDERED: HYDR-4246 PO (13:42)
--- NOTE | 2017-01-01 14:30 | NUR ---
SCARLETT MARTINEZ FROM [facility] IS AWARE THAT PT IS D/C HOME TODAY. PT IS AWARE TO CONTACT CM IF NEEDS ARISE.
--- NOTE | 2017-01-01 14:38 | DSPDOC ---
ADDIS OBREGON V HYDROCHLORIC ACID OPERATOR 01/01/17 1422: General Date Date DATE: 01/01/17 TIME: 14:19 Attending Physician Fozia Davidson MD Admitting Physician Fozia Davidson MD Consulting Physician Luis Alberto Galdamez MD Admitting Diagnosis Pneumonia Discharge Diagnosis Pneumonia Respiratory failure with hypoxia COPD exacerbation Leukocytosis. Hypernatremia- resolved Abnormal thyroid studies Procedures none Laboratory Laboratory Tests Test 12/31/16 10:32 01/01/17 08:17 White Blood Count 13.7T/MM3 (4.5-11.0) 11.3T/MM3 (4.5-11.0) Red Blood Count 4.29M/MM3 (4.00-5.20) 4.32M/MM3 (4.00-5.20) Hemoglobin 12.6GM/DL (12-16) 12.8GM/DL (12-16) Hematocrit 38.9% (36-46) 39.3% (36-46) Mean Corpuscular Volume 90.7UM3 (80-100) 91.0UM3 (80-100) Mean Corpuscular Hemoglobin 29.4UUG (26-34) 29.6UUG (26-34) Mean Corpuscular Hemoglobin Concent 32.4GM/DL (31-37) 32.6GM/DL (31-37) RDW Standard Deviation 48.1FL (36.9-50.2) 47.2FL (36.9-50.2) Platelet Count 139T/MM3 (130-400) 130T/MM3 (130-400) Mean Platelet Volume 10.5UM3 (9.4-12.4) 11.0UM3 (9.4-12.4) Neutrophils % (Manual) 86.0% (33-66) 74.0% (33-66) Band Neutrophils % 4.0% (0-6) 3.0% (0-6) Lymphocytes % (Manual) 2.0% (23-45) 12.0% (23-45) Monocytes % (Manual) 5.0% (0-9.0) 7.0% (0-9.0) Eosinophils % (Manual) 2.0% (0-4) 4.0% (0-4) Metamyelocytes % 1.0% (0-0) Absolute Neutrophils (Manual) 11.8T/MM3 (1.8-7.7) 8.4T/MM3 (1.8-7.7) Band Neutrophils # 0.5T/MM3 0.3T/MM3 Lymphocytes # (Manual) 0.3T/MM3 (1-4.8) 1.4T/MM3 (1-4.8) Monocytes # (Manual) 0.7T/MM3 (0-0.8) 0.8T/MM3 (0-0.8) Eosinophils # (Manual) 0.3T/MM3 (0-0.5) 0.5T/MM3 (0-0.5) Metamyelocytes # 0.1T/MM3 Red Cell Morphology Comment Normal Normal Turbidity < 20 (0-20) < 20 (0-20) Sodium Level 132MEQ/L (134-144) 138MEQ/L (134-144) Potassium Level 5.2MEQ/L (3.6-5) 4.1MEQ/L (3.6-5) Chloride Level 95MEQ/L (98-107) 98MEQ/L (98-107) Carbon Dioxide Level 33MEQ/L (22-30) 31MEQ/L (22-30) Anion Gap 4MEQ/L (5-15) 9MEQ/L (5-15) Blood Urea Nitrogen 23.0MG/DL (7-17) 24.0MG/DL (7-17) Creatinine 1.0MG/DL (0.7-1.2) 1.0MG/DL (0.7-1.2) Glomerular Filtration Rate Calc 54 54 BUN/Creatinine Ratio 23RATIO (6-26) 24RATIO (6-26) Glucose Level 113MG/DL (65-110) 94MG/DL (65-110) Calculated Osmolality 260MOSM/KG (261-280) 270MOSM/KG (261-280) Calcium Level 9.3MG/DL (8.4-10.2) 9.3MG/DL (8.4-10.2) Icterus Index < 2 (0-7) < 2 (0-7) Troponin I 0.034ng/ml (0-0.12) Chemistry Specimen Hemolysis < 15 (0-25) < 15 (0-25) Microbiology PATIENT: VALERIA CORRIGAN#:[id number] Loc: MED 140-P Specimen: [id number] Collected: 12/19/16 Received: 12/19/[address]: TAISHA MAGAÑA DO Source: PERIPHERAL Procedure Result Verified MICROBIOLOGY BLOOD CULTURE. Final 12/24/16 NO GROWTH AFTER 5 DAYS BLOOD CULTURE. Preliminary (changed) 12/23/16 NO GROWTH AFTER 4 DAYS BLOOD CULTURE. Preliminary (changed) 12/22/16 NO GROWTH AFTER 72 HOURS BLOOD CULTURE. Preliminary (changed) 12/21/16 NO GROWTH AFTER 48 HOURS BLOOD CULTURE. Preliminary (changed) 12/20/16 NO GROWTH AFTER 24 HOURS BLOOD CULTURE. Preliminary (changed) 12/19/16 CULTURE INITIATED - RESULTS PENDING Radiology 12/19/16-chest x-ray increasing prominence in the right basilar airspace opacity likely representing pneumonia 12/22/16-chest [id number] aeration in the right lower lobe 12/25/16-chest x-ray by basilar opacities with progression 12/27/16- rest x-ray- overall improving right lower lobe pneumonia 12/31/16-chest [id number] improvement in right lower lobe pneumonia, Nearly resolved History of Present Illness Valeria Corrigan (Judy) is a pleasant 76-year-old female with COPD/emphysema and severe pulmonary hypertension who presented [place] [facility] [place] today, 12/19/16 , for evaluation fo progressively worsening shortness of breath and cough. She reports that about 4-5 days ago she started to have increased shortness of breath and difficulty breathing with non-productive, "deep" cough. She admits to chronically requiring 2L nocturnal O2 but for the past few days was requiring supplemental oxygen. She also states that she has been using her breathing treatments more frequently without complete improvement in her symptoms. She admits to chills and denies any fevers, headache, changes in vision, chest pain, abdominal pain, nausea, vomiting, dysuria, diarrhea or constipation. No recent travel or known sick contacts. Appetite has been stable. She was seen by her PCP, Dr. Santiago on 12/14/16 and started on a prednisone taper without improvement. She tried to follow up with her PCP but was notified that she is currently out of town. Due to her worsening shortness of breath and cough, she presented to [facility] emergency department for further evaluation. Upon arrival, she was found to have a SAO2 of 88% on room air which improved with supplemental oxygen and tachypneic with respiratory rate of 28. CXR was obtained and revealed increasing prominence of right basilar airspace opacity, some of which is chronic, although there is probably superimposed atelectasis or pneumonia. Labs were obtained and revealed leukocytosis 11.5, hgb 13.0, platelets 274, hypernatremia 145, potassium 4.1, BUN 26, SCr 0.9 and glucose 94. Troponin was negative at <0.012. Lactate was 1.8 and procalcitonin was negative at <0.05. Influenza was negative. Due to her acute respiratory failure secondary to pneumonia and COPD, Dr. Jarrett was contacted and she was admitted into inpatient status for further evaluation , close respiratory monitoring, IV antibiotics and respiratory support. Her length of stay is expected to exceed more than 2 over nights. She is seen shortly after her arrival to her room, #140. She is sitting up in bed and is alert and orientated x 3 and nontoxic. She has mild conversational dyspnea with 4-5 word sentences despite wearing supplemental oxygen at 4L. Deep , nonproductive cough noted on exam. Cardiac exam reveals regular rate and rhythm. Lung sounds are diminished bilaterally, worse in the right base with fine crackles noted in the right base. No wheezing or rhonchi. Abdomen is soft , nontender with active bowel sounds. 2+ pedal pulses bilaterally with SCDs in place and no edema noted. . Hospital Course 12/19/16: Marc ADMIT - Assessment/Plan. Acute respiratory failure with hypoxia: * Admit to inpatient status under the care of Dr. Jarrett. * Monitor respiratory function closely with continuous pulse oximetry. * SCDs for DVT prophylaxis. Pneumonia, acute with leukocytosis (WBC 11.5 on admission): * CXR in ED showed increased prominence of right basilar airspace opacity, some of which is chronic although maybe superimposed atelectasis or pneumonia. * Levaquin 750mg IV daily initiated in ED for coverage of pulmonary pathogens. Blood cultures pending; monitor sensitivities. Will try and obtain sputum culture. * Acapella for pulmonary toileting. * Mucinex for mucolytic effect. * Respiratory support including breathing treatments - DuoNeb QID and PRN and budesonide BID. * Tessalon pearls and Ricola for cough. * Routine medications for bowel motivation. * Recheck CBC and BMP in AM to monitor blood counts, electrolytes and renal function. Acute COPD exacerbation: * Solu-medrol 125mg IV Q6H for pulmonary inflammation. Consider changing to oral prednisone when more stable. * Influenza swab negative. Will check respiratory panel now. Hypernatremia: * Initiate NS 75cc/hr for gentle hydration. Monitor closely for signs of fluid overload with daily weights. Hypertension, chronic: * Continue home Norvasc and Lasix; monitor blood pressure closely. History of a-fib, currently sinus rhythm: * Monitor closely on telemetry. Moderate to severe pulmonary hypertension: * Echocardiogram from 05/05/2014 - normal VL systolic function with EF 70%; biatrial dilation, mitral sclerosis and mild mitral regurg, mild tricuspid regurg with severe pulmonary hypertension with estimated pulmonary artery systolic pressure of 73. GERD: * Continue home Prevacid for GI protection and GERD. Anxiety, chronic: * Ativan as needed for anxiety. Obesity: Upon discharge, patient's care will be returned to her PCP, Dr. Santiago. 12/20 Doing a little better. Feels able to breath slightly better. Still with significant cough and congestion, not mobilizing sputum. Notes frontal NGO - feels from all the coughing. No nausea or ab pain. Eating well. Passing flatus. Urinating well. Did go for walk this am, but O2 saturations decreased to the 80' s. Potassium with increase, but with significant hemolysis. Continue Levaquin 750mg IV daily for antimicrobial coverage. Continue with Steroids and Neb treatments. Decrease IVF to 50cc/hr. Continue supplemental O2, weaning as able. Encourage ambulation as able. Will hold on am lab tomorrow due to pt's request. 12/21 Rough night-slept poorly. More SOA and O2 needed to be increased. Continued cough. Minimal sputum production. Does feel lungs starting to loosen up slightly. Eating well without nausea or ab pain. Did have bowel movement. Tongue starting to feel sore - worries about developing thrush. Urinating well. Did ambulate this am. Continue Levaquin 750mg IV daily for antimicrobial coverage. Day #3. Continue with Steroids and Neb treatments. Continue acapella use. Continue with supplemental O2. May d/c IVF as taking po well. Will place PICC line as having difficulty maintaining IV access. Start Mycelex to decrease risk of thrush - antibiotics and steroids risk factors. Encourage ambulation as able. Recheck BMP in am to assess electrolytes and renal status in light of medication use. Recheck CBC in am due to pneumonia CXR PA/Lat in am for F/U of infiltrate. 12/22 Feeling making gains. Did sleep better last night-still very tired and weak this am. Cough with decrease, not mobilizing sputum. Feels less SOA and congested. Eating well. Mouth much less discomfortable. Bowels moving. Working on ambulating to keep strength up. No f/c. Urinating well. Continue Levaquin 750mg IV daily for antimicrobial coverage. Day #4. Solu-Medrol continues Continue with DuoNeb and budesonide. Pt using Acapella routinely and finds is helpful. Continue with supplemental O2 - wean as able. Encourage ambulation to increase functional status. 12/23 More SOA today. O2 needs increased. Cough, but no sputum. No chest pain or pain with breathing. Not with nausea or ab pain. More tired and weak today. HR did increase around noon. EKG showing Afib with RVR. Diltiazem bolus of 5mgx1 and then 10mgx1 given without decrease in HR. Digoxin 0.5mg IV x1 given Monitor HR - if not decreasing will need to transfer to CCU for diltiazem drip. Continue Levaquin 750mg IV daily for antimicrobial coverage. Day #5. Decrease Solu-Medrol to 62.5mg IV q 6 hours. Continue with DuoNeb and budesonide. Continue Acapella. Continue with supplemental O2. 12/24 About the same. Breathing still very short and congested. Cough, but not able to mobilize sputum. Chest wall sore from coughing. Very tired and fatigued-did sleep okay last night, but just washed out this am. No chest pressure or heaviness. No nausea. Eating okay. Ab with slight bloating-feels like she needs to have bowel movement. Urinating well. No f/c. Converted to NSR yesterday evening. Will continue with Digoxin. Change Norvasc to Cardizem 180mg to help BP and HR. Diamox 500mg today to help motivate fluid and minimize contraction alkalosis. Continue Levaquin 750mg IV daily for antimicrobial coverage. Day #6. Continue Solu-Medrol to 62.5mg IV q 6 hours. Continue with DuoNeb and budesonide. Continue Acapella. Encourage deep breathing for gas exchange. Continue with supplemental O2, using lowest flow to keep sats 89-91%. Recheck CXR in am. Repeat BMP in am due to medication use. 12/25/16 Overall fatigued and worn out. Discussed resting today and attempting to get up with PT tomorrow Continues in NSR on telemetry. Continue with Cardizem and digoxin Today is day 7 of Levaquin antibiotic Chest X-ray this morning does show a slight improvement in bibasilar atelectasis Continue with scheduled Solu-Medrol every 6 hours for pulmonary inflammation Continue with scheduled DuoNeb and budesonide. Continue Acapella. Will place PT/OT order for tomorrow 12/26/2016-Dr. Davidson Acute hypoxic respiratory failure-currently requiring 3 L Pneumonia-improving, day 7 Levaquin, change to oral. Check chest x-ray tomorrow COPD exacerbation-requiring 3 L of oxygen, was only needing 2 L at night at home. Change to oral steroids. Continue breathing treatments. Continue incentive spirometer and Acapella. A. fib with RVR-resolved Suppressed TSH-check free T3 and free T4 Leukocytosis-resolved Anxiety-change lorazepam to by mouth Questionable chest tightness-check EKG and troponin, doubt cardiac PT saw the patient and recommended home with home health. OT recommended home. Hyperglycemia-likely secondary to steroids, change to ADA diet Possibly home in the next 1-2 days. Discussed with the patient's daughter. Discussed with case management. Greater than 35 minutes of time spent seeing and evaluating the patient, reviewing chart, and determining care plan. 12/27/16 In regards to acute on chronic respiratory failure, patient is currently requiring 3 liters of oxygen by nasal cannula chronically. She'll likely need to be discharged home on 24-hour oxygen. Today is day 8 of Levaquin. Chest x-ray repeated this morning does show an improvement in right-sided pneumonia. Continue with oral steroids for acute pulmonary. Patient does voice concern of steroid taper as she feels that every time she is off of steroid she gets another exacerbation. She does have a instrument technician apprentice, Dr. Ford in [place]. May need to discuss discharge plan. Consult placed to Dr. Galdamez in regards to thyroid abnormalities. Appreciate his expertise in endocrinology. Serial troponins were evaluated, however, never elevated to a critical level. Likely chest "congestion"/pressure is pulmonary in nature We did discuss in great detail regarding her discharge plans. She does want to go home independently, however, agrees that she needs home health assistance. She would also like to have PT and OT for continued strengthening Will discuss further plan of care with Dr. Davidson 12/28/16 Wheezing continues to be moderate, noted that weight is up this morning. Will give 20 grams of IV Lasix 1 now. Continue to work on weaning oxygen as able. Today is day 9 of Levaquin for treatment of pneumonia, which appears to be improving on x-ray. Continue on prednisone 30 milligrams daily for pulmonary inflammation. Continue with scheduled DuoNeb and Pulmicort breathing treatments. Encourage the use of Tessalon Perles and Mucinex to help with coughing. Reverse T3 lab is pending for further endocrinology evaluation. Patient is started on levothyroxine 50 micrograms daily PT and OT for continued strengthening Delma continues to verbalize her fear and anxiety regarding being discharged Will discuss further plan of care with Dr. Davidson 12/28/2016-I reviewed this chart, the patient history, and the HYDROCHLORIC ACID OPERATOR's/PA's documented findings as above. We discussed and formulated the assessment and plan as above with the additions below.-Dr. Davidson Patient states she feels a little bit better today. She's not coughing quite as much. She is down to 2 L of oxygen. She is still worried about her breathing worsening when she goes home. She is eating okay. On exam she is alert and oriented and in no acute distress. She does cough during the exam. Chest reveals continued wheezing throughout but a little better than yesterday. Cardiovascular reveals a regular rate and rhythm. Abdomen is soft and nontender. Extremities are free of edema. In a dose of Lasix today to see if this would help with her breathing. I talked with Dr. Galdamez earlier today and the patient was started on Synthroid low-dose. Reverse T3 was ordered and obtained prior to starting Synthroid. Hopefully the thyroid replacement will help with her excessive fatigue. Possibly home in the next 1-2 days. 12/29/2016-Dr. Davidson Re: COPD exacerbation-continue with current treatment regarding pneumonia-we'll likely discontinue Levaquin after discharge Regarding possible shingles-likely start oral medication tomorrow. 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 Discussed with Dr. Galdamez. He recommends continuing Synthroid 50 g daily and following up 3-4 weeks. Patient continues to feel fatigued. Hopefully discharge tomorrow. 12/30/2016-Dr. 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 Galdamez Home tomorrow morning 01/01/17- Discharge Valeria was seen and examined today. She overall is looking good today and appears less wheezing. She feels that she is getting stronger and feels ready to go home. She continues to worry about her chronic lung disease and verbalizes anxiety regarding breathing. She has received 11 days of IV antibiotics. We will continue on a prednisone taper for treatment of her underlying COPD. Will decrease today to 20 mg daily for 5 days, then 10 milligrams daily for 5 days. At that time. She will need to follow with primary care to discuss further in taper and/or discontinuation of steroids. Patient will be discharged on Ativan to utilize at night to help with anxiety and breathing. Patient will be discharged on home oxygen to utilize 24 hours a day. She requires 3 liters of oxygen to maintain adequate saturations. Patient will be discharged home on levothyroxine, which is a new medication for her. She is planning to follow with Dr. Galdamez in the next 3-4 weeks. Delma will be discharged home with home health for outpatient follow-up and therapy. Total discharge time greater than 35 minutes. This is a general summation of the patients hospital course. Please refer to the medical record if additional detail is needed. Problems: (1) Pneumonia Status: Resolved (2) Acute respiratory failure with hypoxia Status: Acute Assessment & Plan: present on admission. (3) COPD exacerbation Status: Acute (4) Atrial fibrillation with rapid ventricular response Status: Resolved Assessment & Plan: Onset 12/23 (5) Leukocytosis Status: Resolved Assessment & Plan: present on admission. (6) Hypernatremia Status: Resolved Assessment & Plan: present on admission. (7) HTN (hypertension) Status: Chronic (8) Atrial fibrillation, currently in sinus rhythm Status: Chronic Assessment & Plan: POA - RVR developed on 12/23 (9) Moderate to severe pulmonary hypertension Status: Chronic (10) Anxiety Status: Chronic (11) GERD (gastroesophageal reflux disease) Status: Chronic (12) Obesity (BMI 30-39.9) Status: Chronic Code Status Full Code Home Meds Active Scripts Prednisone (Prednisone) 10 Mg Tablet, 10 MG PO WB, #15 TAB Take 2 tabs daily in the morning for 5 days, then decrease to 1 tab daily in the morning for 5 days Prov:ADDIS OBREGON APRN 01/01/17 Polyethylene Glycol 3350 (Healthylax) 17 Gm Powd.pack, 17 G PO DAILY Y for CONSTIPATION for 30 Days Prov:ADDIS OBREGON APRN 01/01/17 Docusate Sodium (Colace) 100 Mg Capsule, 100 MG PO BID for 30 Days, #60 CAP Prov:ADDIS OBREGON APRN 01/01/17 Benzonatate (Benzonatate) 200 Mg Capsule, 200 MG PO TID Y for COUGH, #20 CAP Prov:ADDIS OBREGON APRN 01/01/17 Lorazepam (Ativan) 0.5 Mg Tablet, 0.5 MG PO HS for 30 Days, #30 TAB Prov:ADDIS OBREGON APRN 01/01/17 Diltiazem HCl (Cardizem Cd) 180 Mg Cap.er.24h, 180 MG PO DAILY for 30 Days, #30 CAP Prov:ADDIS OBREGON APRN 01/01/17 Ipratropium/Albuterol Sulfate (Iprat-Albut 0.5-3(2.5) mg/3 ml) 3 Ml Ampul.neb, 3 ML AEROSOL RTQID for 30 Days Prov:ADDIS OBREGON APRN 01/01/17 Hydrocodone/Acetaminophen ([place] 5-325 Tablet) 1 Each Tablet, 1-2 TAB PO Q4-6H Y for PAIN, #60 TAB Prov:ADDIS OBREGON APRN 01/01/17 Reported Medications Allopurinol (Allopurinol) 100 Mg Tablet, 100 MG PEG DAILY, TAB 12/19/16 Citalopram Hydrobromide (Citalopram HBr) 10 Mg Tablet, 5 MG PO DAILY 06/12/16 Lansoprazole (Prevacid) 15 Mg Tab.rap.dr, 15 MG PO BID 06/12/16 Gabapentin (Gabapentin) 100 Mg Capsule, 100 MG PO BID Y for PRN ORDERS 06/12/16 Albuterol Sulfate (Ventolin HFA 90 mcg/actuation) 18 Gm Hfa.aer.ad, 1 PUFF INH DAILY Y for PRN ORDERS 06/12/16 Acetaminophen (Tylenol Extra Strength) 500 Mg Tablet, 1000 MG PO Q6H Y for PAIN 02/10/15 Potassium Chloride (Potassium Chloride) 10 Meq Tablet.er, 10 MEQ PO DAILY Y for WITH FUROSEMIDE 02/09/15 Furosemide (Furosemide) 40 Mg Tablet, 40 MG PO DAILY Y for EDEMA 02/09/15 Gabapentin (Gabapentin) 600 Mg Tablet, 600 MG PO HS 02/09/15 Aspirin (Aspirin) 81 Mg Tab.chew, 81 MG PO DAILY 02/09/15 Meloxicam (Mobic) 15 Mg Tablet, 15 MG PO DAILY Y for PAIN 03/14/11 Discontinued Reported Medications Albuterol Sulfate (Albuterol Sulfate) 1.25 Mg/3 Ml Vial.neb, 1 VIAL AEROSOL Q6H Y for PRN ORDERS 06/12/16 Discontinued Scripts Amlodipine Besylate (Amlodipine Besylate) 5 Mg Tablet, 5 MG PO DAILY for 30 Days , #30 TAB Prov:OLIVIA WALLACE MD 06/17/16 Prednisone (Prednisone) 20 Mg Tablet, 40 MG PO DAILY for 10 Days, #20 TAB 40 mg PO daily X1 day 30 mg PO dailyt X3 days 20 mg PO dailyt X3 days 10 mg PO dailyt X3 days Then discontinue Prov:OLIVIA WALLACE MD 06/17/16 Face to Face Encounter I met with patient on the day of dismissal and discussed follow up appointments , medications, and safety plan. Discharge Disposition stable Copies To 1: ARTEM SANTIAGO DO Copies To 2: FOZIA Cohen MD 01/01/172007: Hospital Course 01/01/2017-I reviewed this chart, the patient history, and the HYDROCHLORIC ACID OPERATOR's/PA's documented findings as above. We discussed and formulated the assessment and plan as above with the additions below.-Dr. Davidson The patient is doing better today. Her energy seems to be improved. She is coughing much less. Breathing seems easier. On exam chest reveals decreased wheezing. Cardiovascular reveals a regular rate and rhythm. Abdomen is soft and nontender. Extremities are free of edema. The patient appears to be stable for dismissal to home with home health. Problems: Home Meds Active Scripts Prednisone (Prednisone) 10 Mg Tablet, 10 MG PO WB, #15 TAB Take 2 tabs daily in the morning for 5 days, then decrease to 1 tab daily in the morning for 5 days Prov:ADDIS OBREGON APRN 01/01/17 Polyethylene Glycol 3350 (Healthylax) 17 Gm Powd.pack, 17 G PO DAILY Y for CONSTIPATION for 30 Days Prov:ADDIS OBREGON APRN 01/01/17 Docusate Sodium (Colace) 100 Mg Capsule, 100 MG PO BID for 30 Days, #60 CAP Prov:ADDIS OBREGON APRN 01/01/17 Benzonatate (Benzonatate) 200 Mg Capsule, 200 MG PO TID Y for COUGH, #20 CAP Prov:ADDIS OBREGON APRN 01/01/17 Lorazepam (Ativan) 0.5 Mg Tablet, 0.5 MG PO HS for 30 Days, #30 TAB Prov:ADDIS OBREGON APRN 01/01/17 Diltiazem HCl (Cardizem Cd) 180 Mg Cap.er.24h, 180 MG PO DAILY for 30 Days, #30 CAP Prov:ADDIS OBREGON APRN 01/01/17 Ipratropium/Albuterol Sulfate (Iprat-Albut 0.5-3(2.5) mg/3 ml) 3 Ml Ampul.neb, 3 ML AEROSOL RTQID for 30 Days Prov:ADDIS OBREGON APRN 01/01/17 Hydrocodone/Acetaminophen ([place] 5-325 Tablet) 1 Each Tablet, 1-2 TAB PO Q4-6H Y for PAIN, #60 TAB Prov:ADDIS OBREGON APRN 01/01/17 Reported Medications Allopurinol (Allopurinol) 100 Mg Tablet, 100 MG PEG DAILY, TAB 12/19/16 Citalopram Hydrobromide (Citalopram HBr) 10 Mg Tablet, 5 MG PO DAILY 06/12/16 Lansoprazole (Prevacid) 15 Mg Tab.rap.dr, 15 MG PO BID 06/12/16 Gabapentin (Gabapentin) 100 Mg Capsule, 100 MG PO BID Y for PRN ORDERS 06/12/16 Albuterol Sulfate (Ventolin HFA 90 mcg/actuation) 18 Gm Hfa.aer.ad, 1 PUFF INH DAILY Y for PRN ORDERS 06/12/16 Acetaminophen (Tylenol Extra Strength) 500 Mg Tablet, 1000 MG PO Q6H Y for PAIN 02/10/15 Potassium Chloride (Potassium Chloride) 10 Meq Tablet.er, 10 MEQ PO DAILY Y for WITH FUROSEMIDE 02/09/15 Furosemide (Furosemide) 40 Mg Tablet, 40 MG PO DAILY Y for EDEMA 02/09/15 Gabapentin (Gabapentin) 600 Mg Tablet, 600 MG PO HS 02/09/15 Aspirin (Aspirin) 81 Mg Tab.chew, 81 MG PO DAILY 02/09/15 Meloxicam (Mobic) 15 Mg Tablet, 15 MG PO DAILY Y for PAIN 03/14/11 Discontinued Reported Medications Albuterol Sulfate (Albuterol Sulfate) 1.25 Mg/3 Ml Vial.neb, 1 VIAL AEROSOL Q6H Y for PRN ORDERS 06/12/16 Discontinued Scripts Amlodipine Besylate (Amlodipine Besylate) 5 Mg Tablet, 5 MG PO DAILY for 30 Days , #30 TAB Prov:OLIVIA WALLACE MD 06/17/16 Prednisone (Prednisone) 20 Mg Tablet, 40 MG PO DAILY for 10 Days, #20 TAB 40 mg PO daily X1 day 30 mg PO dailyt X3 days 20 mg PO dailyt X3 days 10 mg PO dailyt X3 days Then discontinue Prov:OLIVIA WALLACE MD 06/17/16 Copies To 1: ARTEM SANTIAGO DO Copies To 2: ADDIS Arndt APRN Jan 01, 2017 14:22 FOZIA DAVIDSON MD Jan 01, 2017 20:08
--- NOTE | 2017-01-01 14:40 | NUR ---
status/ DC Pt A/O x3, V/S stable on RA. Pt ambulating well in room, denies pain and no PRN meds given. Eating well, no N/V. DC instructions given and no questions at this time. Midline taken out, cath tip intact. Pt dressed, belongings gathered and waiting for family to pickle pumper.
--- NOTE | 2017-01-01 15:05 | NUR ---
DC Family here to pickup pt, taken to front via WC with O2.
== END 2017-01-01 15:05 | disposition home health service (06) | DRG 193 ==
LOC: ED 10:36 → EDHOLD 12:20 → MED 12:52
PROVIDERS: ADMIT Hospitalist; ATTEND Internal Medicine
DX: J18.9 Pneumonia, unspecified organism (principal); J96.01 Acute respiratory failure with hypoxia; J44.1 Chronic obstructive pulmonary disease with (acute) exacerbation; E87.0 Hyperosmolality and hypernatremia; I10 Essential (primary) hypertension; I48.91 Unspecified atrial fibrillation; R23.8 Other skin changes; R94.6 Abnormal results of thyroid function studies; E66.9 Obesity, unspecified; K21.9 Gastro-esophageal reflux disease without esophagitis; I27.2 Other secondary pulmonary hypertension; F41.9 Anxiety disorder, unspecified; M19.91 Primary osteoarthritis, unspecified site; M10.9 Gout, unspecified; Z79.82 Long term (current) use of aspirin; Z79.52 Long term (current) use of systemic steroids; Z87.891 Personal history of nicotine dependence; Z68.37 Body mass index [BMI] 37.0-37.9, adult
CPT/HCPCS: 36415; 80048; 80053; 80069; 80076; 80162; 81003; 83605; 83880; 84145; 84439; 84443; 84481; 84482; 84484; 85007; 85025; 85027; 87040; 87400; 87486; 87581; 87633; 87798; 93005; 94640; 94667; 94668; 94762; 96374

== ENCOUNTER 2017-01-11 12:11 | Emergency (ER) | payer MEDICARE, BC ==
[~2017-01-11] VITALS: Ht 157.5 cm; Wt 82.5 kg
[~2017-01-11 12:11] MED LIST changes: -ALBU1.252 AEROSOL; +ALLO100T PO; -AMLO5TAB2 PO; +BENZ200C36 PO; +DILT180C63 PO; +DOCU-168 PO; +IPRA3AMP AEROSOL; +LORA0.5T86 PO; +POLY17PO18 PO; +PRED10TA PO; -PRED20TA PO
[2017-01-11 12:13] VITALS: Ht 157.5 cm; Wt 82.5 kg
--- OUTSIDE RECORDS SUMMARY | 2017-01-11 12:16 | XMS REPORT | Continuity of Care Document ---
Author Author [facility] Organization [facility] Address Unknown Phone Unavailable Support Name Relationship Address Phone ARTEM GOODMAN Angelique PISANO Caregiver Unknown Unavailable REKHA CORRIGAN Next Of Kin [address] [place] [address] Insurance Providers Guarantor Valeria Corrigan Address [address] [place], [place] [address] Payer Medicare Policy Number [id number] Subscriber's Name Valeria Corrigan Relationship 18 Self Effective Date 04 Payer [id number] Select Plan 65 Policy Number [id number] Subscriber's Name Valeria Corrigan Relationship 18 Self Group Number [id number] Effective Date 90 Problems Active Problems Medical Problem Onset Date Status Abnormal thyroid blood test Unknown Acute Acute respiratory failure with hypoxia Unknown Acute Acute respiratory insufficiency Unknown Acute Anxiety Unknown Chronic Atrial fibrillation with rapid ventricular response Unknown Resolved Atrial fibrillation, currently in sinus rhythm Unknown Chronic Bronchitis Unknown Acute COPD (chronic obstructive pulmonary disease) Unknown COPD exacerbation Unknown Acute COPD exacerbation Unknown Acute COPD exacerbation Unknown Acute Constipation Unknown Acute Elevated serum creatinine Unknown Resolved GERD (gastroesophageal reflux disease) Unknown Chronic Gouty arthritis Unknown Chronic HTN (hypertension) Unknown Chronic History of atrial fibrillation Unknown Hyperkalemia Unknown Resolved Hypernatremia Unknown Resolved Hypokalemia Unknown Resolved Hyponatremia Unknown Acute Hypoxia Unknown Acute Leukocytosis Unknown Resolved Moderate to severe pulmonary hypertension Unknown Chronic OA (osteoarthritis) Unknown Chronic Obesity (BMI 30-39.9) Unknown Chronic Rash Unknown Acute Serum potassium elevated Unknown Acute Serum potassium elevated Unknown Acute Steroid-induced hyperglycemia Unknown Acute Thrush Unknown Acute Varicella zoster Unknown Acute Past Problems Medical Problem Onset Date Pneumonia Unknown Medications Current Home Medications Medication Dose Units Route Directions Days Qty Instructions Start Date Acetaminophen (Tylenol Extra Strength) 500 Mg Tablet 1,000 Mg Oral Every 6 Hours as needed for Pain 02/10/15 Albuterol Sulfate (Ventolin Hfa 90 Mcg/Actuation) 18 Gm Hfa.aer.ad 1 Puff Inhalation Daily as needed for Prn Orders 06/12/16 Allopurinol 100 Mg Tablet 100 Mg Peg Tube Daily 12/19/16 Aspirin 81 Mg Tab.chew 81 Mg Oral Daily 02/09/15 Benzonatate 200 Mg Capsule 200 Mg Oral Three Times A Day as needed for Cough 20 Capsule 01/01/17 Citalopram Hydrobromide (Citalopram Hbr) 10 Mg Tablet 5 Mg Oral Daily 06/12/16 Diltiazem Hcl (Cardizem Cd) 180 Mg Cap.er.24h 180 Mg Oral Daily 30 Days 30 Capsule 01/01/17 Docusate Sodium (Colace) 100 Mg Capsule 100 Mg Oral Twice A Day 30 Days 60 Capsule 01/01/17 Furosemide 40 Mg Tablet 40 Mg Oral Daily as needed for Edema 09/14 Gabapentin 100 Mg Capsule 100 Mg Oral Twice A Day as needed for Prn Orders 06/12/16 Gabapentin 600 Mg Tablet 600 Mg Oral Bedtime 02/09/15 Hydrocodone/Acetaminophen ([place] 5-325 Tablet) 1 Each Tablet 1-2 Tab Oral Every 4-6 Hours as needed for Pain 60 Tablet 01/01/17 Ipratropium/Albuterol Sulfate (Iprat-Albut 0.5-3(2.5) Mg/3 Ml) 3 Ml Ampul.neb 3 Ml Aerosol Tx. Resp.tx 4 Times A Day 30 Days 01/01/17 Lansoprazole (Prevacid) 15 Mg Tab.rap.dr 15 Mg Oral Twice A Day 06/12/16 Lorazepam (Ativan) 0.5 Mg Tablet 0.5 Mg Oral Bedtime 30 Days 30 Tablet 01/01/17 Meloxicam (Mobic) 15 Mg Tablet 15 Mg Oral Daily as needed for Pain 03/14/11 Polyethylene Glycol 3350 (Healthylax) 17 Gm Powd.pack 17 G Oral Daily as needed for Constipation 30 Days 01/01/17 Potassium Chloride 10 Meq Tablet.er 10 Meq Oral Daily as needed for With Furosemide 02/09/15 Prednisone 10 Mg Tablet 10 Mg Oral Give With Breakfast 15 Tablet Take 2 tabs daily in the morning for 5 days, then decrease to 1 tab daily in the morning for 5 days 01/01/17 Past Home Medications Medication Directions Ordered Status Acetaminophen/Hydrocodone Bitart ([place] 5-325 Tablet) 1 Each Tablet, 1 Tab Oral Every 6 Hours as needed for Pain 02/09/15 Discontinued Albuterol Sulfate 1.25 Mg/3 Ml Vial.neb, 1 Vial Aerosol Tx. Every 6 Hours as needed for Prn Orders 06/12/16 Discontinued Amlodipine Besylate 5 Mg Tablet, 5 Mg Oral Daily 06/17/16 Discontinued Amlodipine Besylate 5 Mg Tablet, 5 Mg [...] Tablet.er, Every 12 Hours 05/08/14 Discontinued Hydrocodone/Acetaminophen ([place] 5-325 Tablet) 1 Each Tablet, 1-2 Tab Oral Every 4-6 Hours as needed for Pain 02/10/15 Discontinued Hydrocodone/Chlorphen Polis (Hydrocodone-Chlorpheniram Susp) 5 Ml [...] Oral Every 6 Hours for Nausea Discontinued Prednisone 20 Mg Tablet, 40 Mg Oral Daily 06/17/16 Discontinued Social History Social History Problem Response Recorded Date/Time Onset Date Status Tobacco abuse 05/01/2014 10:30am Unknown Active Hx Substance Use No 12/19/2016 10:38am Not Applicable Not Applicable Hx Alcohol Use Y OCCASIONAL 12/19/2016 10:38am Not Applicable Not Applicable Has the pt used tobacco in the last 12 months Yes 12/19/2016 1:15pm Not Applicable Not Applicable Tobacco Usage none 05/08/2014 5:50pm Not Applicable Not Applicable Hospital Discharge Instructions Current inpatient/outpatient. Discharge instructions are currently unavailable. Plan of Care Current inpatient/outpatient. The plan of care is currently unavailable Functional Status No functional status results. Allergies, Adverse Reactions, Alerts Allergen Type Severity Reaction Status Last Updated Cefaclor Allergy Unknown Active 12/19/16 Immunizations Immunization Event Date Type Not Given Reason Dose Number Lot Number [employer] Grade [employer] VIS Given pneumococcal polysaccharide [id number] 12/19/16 Not Given Discontinued Query Response on File Recorded Date/Time Hx Influenza Vaccination Y JUN 2016 12/19/16 1:15pm Hx Pneumococcal Vaccination Y prevnar 13, 03/22/15 12/19/16 1:15pm Hx Tetanus, Diptheria, Pertussis Y PAST 10 YRS 10/16/14 8:41pm Hx Influenza Vaccination Y JUN 2016 12/19/16 1:15pm Hx Tetanus, Diptheria, Pertussis Y PAST 10 YRS 10/16/14 8:41pm Influenza Vaccine Hx 06/22/16 12/19/16 2:16pm Vital Signs Acute Vital Signs Vital Response Date/Time Temperature (Fahrenheit) 96.7 deg F (96.8 - 99.1) 01/01/2017 8:00am Temperature (Calculated Celsius) 35.14616 degrees C (36.0 - 37.3) 01/01/2017 8:00am Pulse Rate (adult) 112 bpm (60 - 100) 01/01/2017 9:53am Respiratory Rate 18 breaths/min (10 - 20) 01/01/2017 8:00am O2 Sat by Pulse Oximetry 92 % (90 - 100) 01/01/2017 10:44am Oxygen Delivery Method Nasal Cannula 01/01/2017 3:05pm Oxygen Delivery Method Nasal Cannula 01/01/2017 8:00am Oxygen Flow Rate 2.00 L/min 01/01/2017 3:05pm Blood Pressure 156/70 mm Hg 01/01/2017 8:00am Blood Pressure Source Automatic Cuff 01/01/2017 8:00am Height (Feet) 5 feet 12/31/2016 8:21pm Height (Inches) 0.00 inches 12/31/2016 8:21pm Weight (Kilograms) 86.000 kg 01/01/2017 8:00am Body Mass Index (BMI) 36.3 12/19/2016 1:03pm Results No known relevant diagnostic tests, laboratory data and/or discharge summary. Procedures No known history of procedures. Encounters Encounter Location Arrival/Admit Date Discharge/Depart Date Attending Provider Registered Recurring [facility] 01/01/17 2:13pm ARTEM GOODMAN DO Discharged Inpatient [facility] 12/19/16 12:20pm 01/01/17 3:05pm FOZIA JOHNSON MD
--- OUTSIDE RECORDS SUMMARY | 2017-01-11 12:16 | XMS REPORT | Continuity of Care Document ---
Author Author [facility] Organization [facility] Address Unknown Phone Unavailable Support Name Relationship Address Phone ALIREZA MOBLEY MD Caregiver [address] [place] [address] [place] [address] JALYN DONOVAN MD Caregiver [address] [place] [address] [place] [address] [phone] RAMIRO SHARPE Next Of Kin [address] [place] [address] Insurance Providers Payer Name Policy Number Subscriber Name Relationship Medicare [id number] Valeria Corrigan 18 Self [facility] [id number] Valeria Corrigan 18 Self Advance Directives Directive [...] 1 Qty 05/18/14 Active Sodium Chloride 2 [place] EA NOSTRIL FOUR TIMES DAILY 30 Days [...] questions about your care or wound, Call [facility] at [phone] and have the resistance welding machine operator page Dr. Schneider. Condition at time [...] of your legs. 3.During office hours, call [phone] 4. After hours, please call [facility] at [phone], and have the resistance welding machine operator page your Surgeon IN THE EVENT [...] F (96.8 - 99.1) Temperature (Calculated Celsius) 35.13732 degrees C (36.0 - 37.3) Temperature Source [...] 02, 2013 1:53pm LAB TEST FORM REQUEST [id number] - Lipase March 13, 2011 11:50pm 112 [...] 13, 2011 11:50pm 8.4 % N 0-9.0 CM-Rxb-G-Type Natriuretic Peptide April 30, 2014 8:30pm 441 [...] Has specimen been collected/obtained? Y Urine Specific [place] May 01, 2014 12:01am 1.010 L - [...] N 4.5-11.0 Name: VALERIA CORRIGAN Unit #: [id number] : 1940 Sex: F Loc / Svc: MED DOS: Signed Report #: [id number] DIAGNOSTIC IMAGING REPORT TYPE OF EXAM: CHEST [...] procedures. Encounters Encounter Location Date/Time Discharged Inpatient [facility] 05/07/14 5:25pm Discharged Inpatient [facility] 04/30/14 10:28pm Recent Diagnosis COPD exacerbation Hyponatremia Hypokalemia Atrial fibrillation, currently in sinus rhythm Constipation
--- OUTSIDE RECORDS SUMMARY | 2017-01-11 12:16 | XMS REPORT | Continuity of Care Document ---
Author Author [facility] Organization [facility] Address Unknown Phone Unavailable Support Name Relationship Address Phone SERENITYEKATERINA CALLEJAS Caregiver [address] [place] [address] [address] [place] [address] NEENA SIMS MD Caregiver [address] [facility] [place] [address] JALYN TIDWELL MD Caregiver [address] [facility] [facility] [place] [phone] RAMIRO SHARPE Next Of Kin [address] [place] [address] Insurance Providers Payer Name Policy Number Subscriber Name Relationship Medicare [id number] Valeria Corrigan 18 Self [facility] [id number] Valeria Corrigan 18 Self Advance Directives Directive [...] as needed -Duoneb 3ml aerosol as needed -[place] 5/325 1-2 tablets every 5 hours as [...] F (96.8 - 99.1) Temperature (Calculated Celsius) 36.59214 degrees C (36.0 - 37.3) Temperature Source [...] 02, 2013 1:53pm LAB TEST FORM REQUEST [id number] - Lipase March 13, 2011 11:50pm 112 [...] 13, 2011 11:50pm 8.4 % N 0-9.0 ZF-Ctr-I-Type Natriuretic Peptide April 30, 2014 8:30pm 441 [...] Has specimen been collected/obtained? Y Urine Specific [place] May 01, 2014 12:01am 1.010 L - [...] N 4.5-11.0 Name: VALERIA CORRIGAN Unit #: [id number] : 1940 Sex: F Loc / Svc: MED DOS: 04/30/14 Signed Report #: [id number] DIAGNOSTIC IMAGING REPORT TYPE OF EXAM: CHEST [...] procedures. Encounters Encounter Location Date/Time Discharged Inpatient [facility] 04/30/14 10:28pm Recent Diagnosis COPD exacerbation COPD exacerbation Hypoxia COPD exacerbation Acute respiratory insufficiency HTN (hypertension) Obesity (BMI 30-39.9) Steroid-induced hyperglycemia Hyponatremia Elevated serum creatinine
--- OUTSIDE RECORDS SUMMARY | 2017-01-11 12:18 | XMS REPORT | Continuity of Care Document ---
Author Author [facility] Organization [facility] Address Unknown Phone Unavailable Allergies Medications Problems Procedures Results Encounters ACCT No. Visit Date/Time Discharge Status Pt. Type Provider Facility Loc./Unit Complaint [id number] 12/25/2013 09:42:00 12/25/2013 23 :59:59 [facility] Outpatient [id number] 12/18/2013 10:35:00 12/18/2013 23 :59:59 CLS Outpatient [id number] 12/05/2013 08:26:00 12/05/2013 23 :59:59 CLS Outpatient [id number] 12/02/2013 10:50:00 12/02/2013 23 :59:59 CLS Outpatient [id number] 11/13/2013 09:25:00 11/13/2013 23 :59:59 CLS Outpatient [id number] 10/16/2013 12:00:00 10/16/2013 23 :59:59 CLS Outpatient [id number] 07/22/2013 13:41:00 07/22/2013 23 :59:59 CLS Outpatient
--- OUTSIDE RECORDS SUMMARY | 2017-01-11 12:18 | XMS REPORT | Continuity of Care Document ---
Author Author [facility] Organization [facility] Address Unknown Phone Unavailable Support Name Relationship Address Phone ARCHANATAISHA LICEA Caregiver [facility] [address] [place], [place] [id number] JALYN TIDWELL MD Caregiver [address] [place], [place] [phone] RAMIRO SHARPE Next Of Kin [address] [place], [place] [address] Insurance Providers Payer Name Policy Number Subscriber Name Relationship Medicare [id number] Valeria Corrigan 18 Self [employer] Select Plan 65 [id number] Valeria Corrigan 18 Self Advance Directives Directive [...] F (96.8 - 99.1) Temperature (Calculated Celsius) 36.66977 degrees C (36.0 - 37.3) Pulse Rate [...] Has specimen been collected/obtained? Y Urine Specific [place] May 01, 2014 12:01am 1.010 L - [...] 16, 2014 8:34pm LAB TEST FORM REQUEST [id number] - Turbidity October 16, 2014 7:20pm < [...] October 16, 2014 7:20pm < 2 0-7 EK-Tlv-G-Type Natriuretic Peptide June 22, 2014 11:13am 433 PG/ML H 0-175 Rule in cut points: <50 years old=450; 50-75 years old=900; >75 years old=1800; When utilizing ProBNP rule-in cut points, adjustment for impaired renal function is typically not required. Procedures No known history of procedures. Encounters Encounter Location Date/Time Departed Emergency Room [facility] 10/16/14 6:45pm Registered Clinic [facility] 10/16/14 5:29pm Recent Diagnosis
--- NOTE | 2017-01-11 12:35 | ERPDOC ---
Departure Disposition Decision Date: Jan 11, 2017 Disposition Decision Time: 14:54 (YANELI SILVERMAN APRN) Disposition: 01 DISCHARGED HOME, SELF-CARE Impression Impression (YANELI SILVERMAN APRN) Impression: Primary Impression: COPD exacerbation Additional Impression: CHF (congestive heart failure) Condition: Improved Seen By: Mid-level only (YANELI SILVERMAN APRN) Referrals: ARTEM HOPSON DO (Family) Patient Instructions: COPD (Chronic Obstructive Pulmonary Disease) (ED), Heart Failure (ED) Problems/Meds/Labs Reviewed?: Yes Medications reviewed and manag: Yes (YANELI SILVERMAN APRN) Additional Instructions: 1. Use nebulized treatments and rescue inhaler as instructed 2. Take your home Lasix if you have lower extremity swelling 3. Follow up with Dr. Hopson tomorrow at 2:40 pm in her clinic 4. Return to ER if you develop worsening breathing. Follow up care ordered?: Yes Mental Status: Alert, Oriented (YANELI SILVERMAN APRN) HPI - Dyspnea General Chief Complaint: Dyspnea/Respdistress Stated Complaint: SOB Time Seen by Provider: 12:48 Source: patient, family (DAUGHTER IN LAW) (YANELI SILVERMAN APRN) Time Seen by Provider: 12:48 (OLMAN RZAA DO) HPI - Dyspnea Initial Comments Delma is a 76 year old female patient of Dr. Hopson who was discharged from [facility] on 01/02 with PNA and exacerbation of COPD. Patient has long history of COPD and is o2 dependent usually on 2 liters. Over the last two days has increased her o2 up to 4 liters. Last night felt her breathing was getting more difficult and came to ER today to get checked out. Saw Dr. Hopson on 01/09 for follow up and had a chest xray done that day. Was supposed to start on another round of prednisone however insurance would not pay for the medication until 01/12 so she has been off steroids for a week. Has not been on any diuretics although was diagnosed with CHF with this recent hospitalization and reportedly has some Lasix at home she is supposed to take when she gets more lower leg swelling. She has noticed more swelling over the last few days, but just didn't take any Lasix, she states. Denies fevers. Denies productive cough. Has had shingles since hospitalization as well, no antiviral therapy completed due to duration of rash prior to diagnosis. Denies chest pain. Denies abdominal pain. Denies n/v /d. Daughter in law does report patient's health has deteriorated over last few months and since recent hospitalization patient has had minimal activity, goes from chair to bathroom and has home health. Occurred At: home Onset/Timing: Getting worse Duration: other (2 ays) Activities at Onset: none Prior Episodes/Possible Cause: frequent episodes, chronic episodes Associated Symptoms: shortness of breath Hx of Similar Symptoms: Yes (YANELI SILVERMAN APRN) Allergies: Coded Allergies: cefaclor (Verified Allergy, Unknown, 01/11/17) Past History Patient Surgical History Appendectomy - 1954. Cholecystectomy - 1984. Hysterectomy - 1984. Left knee arthroscopy - 2013. Bilateral cataract - 2015. (YANELI SILVERMAN APRN) Past Medical History Metabolic: hypertension, hypothyroidism ENMT: cataracts, sleep apnea Cardiac: A-fib, CHF Respiratory: COPD, pulmonary hypertension GI: GERD, gallbladder disease Musculoskeletal: osteoarthritis Integumentary: rashes (shingles) Psychological: anxiety, depression (YANELI SILVERMAN APRN) Surgical History General: appendix, gallbladder Reproductive/: hysterectomy (YANELI SILVERMAN APRN) Family History Family PMH: FOUND: CAD, CHF, COPD, cancer (oat cell) (YANELI SILVERMAN APRN) Vaccines Hx Influenza Vaccination: Yes (JUN 2016) Hx Pneumococcal Vaccination: Yes (prevnar 13, 03/22/15) Hx Tetanus, Diptheria, Pertuss: Yes (PAST 10 YRS) (YANELI SILVERMAN APRN) Social History Smoking Status: Former smoker Does patient use chewing tobac: No Second Hand Exposure: No Quit Date: Oct 01, 1990 Substance Use Type: does not use Alcohol Intake: none, occasionally, a few times a month Marital Status: Housing: house Household Members: none Service: No Occupational Hazard: No Advance Directives: Yes Full Code (YANELI SILVERMAN APRN) Review of Systems Constitutional Constitutional: chills, DENIES: fever (YANELI SILVERMAN APRN) ENMT Sinuses: DENIES: congestion, rhinorrhea Mouth/Throat: DENIES: sore throat (YANELI SILVERMAN APRN) Cardiovascular Cardiac: dyspnea on exertion, DENIES: chest pain (SILVERMAN,YANELI SUSTAINABLE DEVELOPMENT POLICY ANALYST) Pulmonary Respiratory: cough, dyspnea, DENIES: sputum (YANELI SILVERMAN SUSTAINABLE DEVELOPMENT POLICY ANALYST) GI Upper Abdomen: DENIES: vomiting Lower Abdomen: DENIES: diarrhea (YANELI SILVERMAN SUSTAINABLE DEVELOPMENT POLICY ANALYST) General: DENIES: dysuria (KRIS SILVERMANARA SUSTAINABLE DEVELOPMENT POLICY ANALYST) Musculoskeletal General: weakness (YANELI SILVERMAN SUSTAINABLE DEVELOPMENT POLICY ANALYST) Integumentary Skin: rash (shingles) (YANELI SILVERMAN SUSTAINABLE DEVELOPMENT POLICY ANALYST) All other Systems All Other Systems: Reviewed and Negative (YANELI SILVERMAN APRN) Physical Exam General General Nourishment: well developed, obese, acute distress (mild) (YANELI SILVERMAN SUSTAINABLE DEVELOPMENT POLICY ANALYST) Vitals and Pain First Documented Vital Signs Date Time Temp Pulse Resp B/P Pulse Ox O2 Delivery O2 Flow Rate FiO2 01/11/17 12:13 98.0 77 28 140/63 90 Nasal Cannula 4.00 (OLMAN RAZA DO) Vitals and Pain Weight: Kilograms: 82.500 Height (feet): 5 Height (inches): 2.00 Triage Pain Scale: (YANELI SILVERMAN APRN) Eyes (brief) Eyes Brief: found: PERRL, not found: scleral icterus (KRIS SILVERMANARA SUSTAINABLE DEVELOPMENT POLICY ANALYST) ENMT (brief) ENMT Brief: FOUND: mucosa moist, NOT FOUND: nasal exudate, nasal swelling, pharnyx erythema (KRIS SILVERMANARA SUSTAINABLE DEVELOPMENT POLICY ANALYST) Neck (brief) Neck: NOT FOUND: adenopathy (KRIS SILVERMANARA SUSTAINABLE DEVELOPMENT POLICY ANALYST) Respiratory (brief) Respiratory: FOUND: wheezes (diminished throughout) (YANELI SILVERMAN SUSTAINABLE DEVELOPMENT POLICY ANALYST) Cardiovascular (brief) Cardiac: FOUND: peripheral edema, regular rate, regular rhythm Pulses: all distal extremities (KRIS SILVERMANARA SUSTAINABLE DEVELOPMENT POLICY ANALYST) Abdomen (brief) Abdominal Brief: FOUND: bowel normo active x4, soft, NOT FOUND: tender (ANDRA YANELI SUSTAINABLE DEVELOPMENT POLICY ANALYST) Lymphatic (brief) Lymphatic Brief: NOT FOUND: adenopathy (ANDRAYANELI SUSTAINABLE DEVELOPMENT POLICY ANALYST) Musculoskeletal (brief) Musculoskeletal Brief: NOT FOUND: tenderness (SILVERMANYANELI SUSTAINABLE DEVELOPMENT POLICY ANALYST) Integumentary (brief) Integumentary Brief: FOUND: dry, pink, rash (healing plaque like area to left glute), warm (KRIS SILVERMANARA SUSTAINABLE DEVELOPMENT POLICY ANALYST) Psychiatric (brief) Psychiatric Brief: FOUND: alert, attentive, normal affect, oriented (YANELI SILVERMAN APRN) Differential Diagnoses Considering: CHF, COPD Exacerbation, Pneumonia, Pulmonary Embolus, Viral Syndrome (YANELI SILVERMAN APRN) Progress Results/Orders Orders Procedure Category Date Status Time Bmp - Basic Metabolic LAB 01/11/17 Complete Panel 12:48 Probnp LAB 01/11/17 Complete 12:48 Cbc W/Auto LAB 01/11/17 Complete Diff-Reflex Manual 12:48 D-Dimer LAB 01/11/17 Complete 12:48 Troponin I W LAB 01/11/17 Complete Hemolysis Index 12:48 EKG EKG 01/11/17 Taken 12:48 Iv Lock (Ed Only) EDM 01/11/17 Transmitted 12:48 Albuterol/Ipratropium PHA 01/11/17 Complete (Duoneb) 13:00 Methylprednisolone PHA 01/11/17 Complete Sod Succ (Solu-Medrol 13:00 Oxygen Administration EDM 01/11/17 Transmitted 12:[address] 01/11/17 Resulted Iohexol (Omnipaque) PHA 01/11/17 Complete 13:56 Normal Saline (Ns) PHA 01/11/17 Complete 13:56 Saline Flush (Iv PHA 01/11/17 Complete Flush) 13:56 Furosemide (Lasix) PHA 01/11/17 Complete 15:00 (OLMAN RAZA DO) Lab Results Laboratory Tests Test 01/11/17 13:24 White Blood Count 3.5T/MM3 Red Blood Count 3.50M/MM3 Hemoglobin 10.2GM/DL Hematocrit 31.0% Mean Corpuscular Volume 88.6UM3 Mean Corpuscular Hemoglobin 29.1UUG Mean Corpuscular Hemoglobin Concent 32.9GM/DL RDW Standard Deviation 45.7FL Platelet Count 266T/MM3 Mean Platelet Volume 9.9UM3 Immature Granulocyte % (Auto) 0.6% Neutrophils (%) (Auto) 84.9% Lymphocytes (%) (Auto) 9.9% Monocytes (%) (Auto) 4.0% Eosinophils (%) (Auto) 0.3% Basophils (%) (Auto) 0.3% Absolute Immature Granulocyte (auto 0.02T/MM3 Absolute Neutrophils (auto) 3.0T/MM3 Absolute Lymphocytes (auto) 0.4T/MM3 Absolute Monocytes (auto) 0.1T/MM3 Absolute Eosinophils (auto) 0.0T/MM3 Absolute Basophils (auto) 0.0T/MM3 D-Dimer 645NG/ML Turbidity < 20 Sodium Level 138MEQ/L Potassium Level 3.9MEQ/L Chloride Level 101MEQ/L Carbon Dioxide Level 26MEQ/L Anion Gap 11MEQ/L Blood Urea Nitrogen 20.0MG/DL Creatinine 0.8MG/DL Glomerular Filtration Rate Calc 70 BUN/Creatinine Ratio 25RATIO Glucose Level 151MG/DL Calculated Osmolality 272MOSM/KG Calcium Level 8.8MG/DL Icterus Index < 2 Troponin I < 0.012ng/ml KJ-Fdg-L-Type Natriuretic Peptide 1080PG/ML Chemistry Specimen Hemolysis < 15 (OLMAN RAZA DO) Lab Results Laboratory Tests Test 01/11/17 13:24 White Blood Count 3.5T/MM3 Red Blood Count 3.50M/MM3 Hemoglobin 10.2GM/DL Hematocrit 31.0% Mean Corpuscular Volume 88.6UM3 Mean Corpuscular Hemoglobin 29.1UUG Mean Corpuscular Hemoglobin Concent 32.9GM/DL RDW Standard Deviation 45.7FL Platelet Count 266T/MM3 Mean Platelet Volume 9.9UM3 Immature Granulocyte % (Auto) 0.6% Neutrophils (%) (Auto) 84.9% Lymphocytes (%) (Auto) 9.9% Monocytes (%) (Auto) 4.0% Eosinophils (%) (Auto) 0.3% Basophils (%) (Auto) 0.3% Absolute Immature Granulocyte (auto 0.02T/MM3 Absolute Neutrophils (auto) 3.0T/MM3 Absolute Lymphocytes (auto) 0.4T/MM3 Absolute Monocytes (auto) 0.1T/MM3 Absolute Eosinophils (auto) 0.0T/MM3 Absolute Basophils (auto) 0.0T/MM3 D-Dimer 645NG/ML Turbidity < 20 Sodium Level 138MEQ/L Potassium Level 3.9MEQ/L Chloride Level 101MEQ/L Carbon Dioxide Level 26MEQ/L Anion Gap 11MEQ/L Blood Urea Nitrogen 20.0MG/DL Creatinine 0.8MG/DL Glomerular Filtration Rate Calc 70 BUN/Creatinine Ratio 25RATIO Glucose Level 151MG/DL Calculated Osmolality 272MOSM/KG Calcium Level 8.8MG/DL Icterus Index < 2 Troponin I < 0.012ng/ml HU-Jpp-L-Type Natriuretic Peptide 1080PG/ML Chemistry Specimen Hemolysis < 15 (YANELI SILVERMAN APRN) Medications Current ED Medications Albuterol/ Ipratropium (Duoneb) 3 ml O ONCE AEROSOL Last administered on 13:01; Start 01/11/17 at 13:00; Stop 01/11/17 at 13:01; Status DC Methylprednisolone Sodium Succinate (Solu-Medrol) 125 mg O ONCE IV Last administered on 01/11/17 13:23; Start 01/11/17 at 13:00; Stop 01/11/17 at 13:01 ; Status DC Iohexol 1 bottle 1 bottle STK-MED ONCE .ROUTE ; Start 01/11/17 at 13:56; Stop at 13:57; Status DC Sodium Chloride (NS) 100 ml @ As Directed STK-MED ONCE .ROUTE ; Start 01/11/17 at 13:56; Stop 01/11/17 at 13:57; Status DC Sodium Chloride (Iv Flush) 10 ml STK-MED ONCE .ROUTE ; Start 01/11/17 at 13:56; Stop 01/11/17 at 13:57; Status DC Furosemide (Lasix) 20 mg O ONCE IV Last administered on 01/11/17 14:58; Start 01/11/17 at 15:00; Stop 01/11/17 at 15:01; Status DC (OLMAN RAZA DO) Progress Progress 1320 - Duoneb treatment given. Improved aeration to left but remains diminished with few wheezes on right. Patient states does not feel significantly better yet. 1450 - patient breathing better. feels able to go home with op f/u tomorrow with dr. hopson. agrees to return to ER if soa worsens. (YANELI SILVERMAN APRN) EKG EKG : Rate: 60-100 Rhythm: sinus [place]: normal QRS: normal Intervals: normal ST/T: normal Interpreted by: signing physician (YANELI SILVERMAN APRN) Consult/PCP Consult/PCP : Physician Contacted: Pamela Time Called: 14:40 Time of first response: 14:42 Type of discussion: Phone Consult/PCP Discussion Details ok for home. maintaining sats on 02 at 4 liters. SM given. F/u clinic 240 pm tomorrow (YANELI SILVERMAN APRN) CT CT : CT: Other (CTA) Interpretation: Abnormal (groundglass opacities, no PE, no consolidative pna ), Reviewed Written Report (YANELI SILVERMAN APRN) YANELI SILVERMAN APRN Jan 11, 2017 12:35 OLMAN RAZA DO Jan 11, 2017 15:13
[2017-01-11] MEDS ORDERED: DILT180C63 PO (12:41)
[2017-01-11] MEDS ORDERED: ALBUTEROL/IPRATROPIUM INHAL. 2.5mg-0.5mg/3ml Neb. AEROSOL ONE (13:00)
--- NOTE | 2017-01-11 13:00 | NUR ---
RT RT HERE GIVING BREATHING TREATMENT.
--- OUTSIDE RECORDS SUMMARY | 2017-01-11 13:11 | XMS REPORT | Continuity of Care Document ---
Author Author [facility] Organization [facility] Address Unknown Phone Unavailable Support Name Relationship Address Phone ALIREZA MOBLEY MD Caregiver [address] [place] [address] [place] [address] JALYN DONOVAN MD Caregiver [address] [place] [address] [place] [address] [phone] RAMIRO SHARPE Next Of Kin [address] [place] [address] Insurance Providers Payer Name Policy Number Subscriber Name Relationship Medicare [id number] Valeria Corrigan 17 Self [facility] [id number] Valeria Corrigan 17 Self Advance Directives Directive [...] 1 Qty 05/18/14 Active Sodium Chloride 2 Stites EA NOSTRIL FOUR TIMES DAILY 30 Days [...] questions about your care or wound, Call [facility] at [phone] and have the gauge machine operator page Dr. Schneider. Condition at [...] of your legs. 3.During office hours, call [phone] 4. After hours, please call [facility] at [phone], and have the gauge machine operator page your Surgeon IN THE [...] F (96.8 - 99.1) Temperature (Calculated Celsius) 35.02502 degrees C (36.0 - 37.3) Temperature Source [...] 02, 2013 1:53pm LAB TEST FORM REQUEST [id number] - Lipase March 13, 2011 11:50pm 112 [...] 13, 2011 11:50pm 8.4 % N 0-9.0 LV-Aod-O-Type Natriuretic Peptide April 30, 2014 8:30pm 441 [...] Has specimen been collected/obtained? Y Urine Specific [place] May 01, 2014 12:01am 1.010 L - [...] N 4.5-11.0 Name: VALERIA CORRIGAN Unit #: [id number] : 1940 Sex: F Loc / Svc: MED DOS: Signed Report #: [id number] DIAGNOSTIC IMAGING REPORT TYPE OF EXAM: CHEST [...] procedures. Encounters Encounter Location Date/Time Discharged Inpatient [facility] 05/07/14 5:25pm Discharged Inpatient [facility] 04/30/14 10:28pm Recent Diagnosis COPD exacerbation Hyponatremia Hypokalemia Atrial fibrillation, currently in sinus rhythm Constipation
--- OUTSIDE RECORDS SUMMARY | 2017-01-11 13:12 | XMS REPORT | Continuity of Care Document ---
Author Author [facility] Organization [facility] Address Unknown Phone Unavailable Support Name Relationship Address Phone SERENITYEKATERINA CALLEJAS Caregiver [address] [place] [address] [address] [place] [address] NEENA SIMS MD Caregiver [address] [place] [address] JALYN TIDWELL MD Caregiver [address] [phone] RAMIRO SHARPE Next Of Kin [address] [place] [address] Insurance Providers Payer Name Policy Number Subscriber Name Relationship Medicare [id number] Valeria Corrigan 17 Self [facility] [id number] Valeria Corrigan 17 Self Advance Directives Directive [...] as needed -Duoneb 3ml aerosol as needed -[place] 5/325 1-2 tablets every 5 hours as [...] F (96.8 - 99.1) Temperature (Calculated Celsius) 36.90306 degrees C (36.0 - 37.3) Temperature Source [...] 02, 2013 1:53pm LAB TEST FORM REQUEST [id number] - Lipase March 13, 2011 11:50pm 112 [...] 13, 2011 11:50pm 8.4 % N 0-9.0 UZ-Smv-N-Type Natriuretic Peptide April 30, 2014 8:30pm 441 [...] Has specimen been collected/obtained? Y Urine Specific [place] May 01, 2014 12:01am 1.010 L - [...] N 4.5-11.0 Name: VALERIA CORRIGAN Unit #: [id number] : 1940 Sex: F Loc / Svc: MED DOS: 04/30/14 Signed Report #: [id number] DIAGNOSTIC IMAGING REPORT TYPE OF EXAM: CHEST [...] procedures. Encounters Encounter Location Date/Time Discharged Inpatient [facility] 04/30/14 10:28pm Recent Diagnosis COPD exacerbation COPD exacerbation Hypoxia COPD exacerbation Acute respiratory insufficiency HTN (hypertension) Obesity (BMI 30-39.9) Steroid-induced hyperglycemia Hyponatremia Elevated serum creatinine
--- OUTSIDE RECORDS SUMMARY | 2017-01-11 13:12 | XMS REPORT | Continuity of Care Document ---
Author Author [facility] Organization [facility] Address Unknown Phone Unavailable Support Name Relationship Address Phone ARCHANATAISHA LICEA Caregiver [facility] [address] [place], [place] [phone] JALYN TIDWELL MD Caregiver [address] [place], [place] [phone] RAMIRO SHARPE Next Of Kin [address] [place], [place] [id number] Insurance Providers Payer Name Policy Number Subscriber Name Relationship Medicare [id number] Valeria Corrigan 17 Self [employer] Plan 65 [id number] Valeria Corrigan 17 Self Advance Directives Directive [...] F (96.8 - 99.1) Temperature (Calculated Celsius) 36.29808 degrees C (36.0 - 37.3) Pulse Rate [...] Has specimen been collected/obtained? Y Urine Specific [place] May 01, 2014 12:01am 1.010 L - [...] 16, 2014 8:34pm LAB TEST FORM REQUEST [id number] - Turbidity October 16, 2014 7:20pm < [...] October 16, 2014 7:20pm < 2 0-7 AJ-Sds-J-Type Natriuretic Peptide June 22, 2014 11:13am 433 PG/ML H 0-175 Rule in cut points: <50 years old=450; 50-75 years old=900; >75 years old=1800; When utilizing ProBNP rule-in cut points, adjustment for impaired renal function is typically not required. Procedures No known history of procedures. Encounters Encounter Location Date/Time Departed Emergency Room [facility] 10/16/14 6:45pm Registered Clinic [facility] 10/16/14 5:29pm Recent Diagnosis
--- OUTSIDE RECORDS SUMMARY | 2017-01-11 13:13 | XMS REPORT | Continuity of Care Document ---
Author Author [facility] Organization [facility] Address Unknown Phone Unavailable Allergies Medications Problems Procedures Results Encounters ACCT No. Visit Date/Time Discharge Status Pt. Type Provider Facility Loc./Unit Complaint [id number] 12/25/2013 09:42:00 12/25/2013 23 :59:59 CLS Outpatient [id number] 12/18/2013 10:35:00 12/18/2013 23 :59:59 CLS Outpatient [id number] 12/05/2013 08:26:00 12/05/2013 23 :59:59 CLS Outpatient [id number] 12/02/2013 10:50:00 12/02/2013 23 :59:59 CLS Outpatient [id number] 11/13/2013 09:25:00 11/13/2013 23 :59:59 CLS Outpatient [id number] 10/16/2013 12:00:00 10/16/2013 23 :59:59 CLS Outpatient [id number] 07/22/2013 13:41:00 07/22/2013 23 :59:59 CLS Outpatient
--- NOTE | 2017-01-11 13:15 | NUR ---
IVL IV LOCK STARTED ON SECOND ATTEMPT AND BLOOD DRAWN FOR LAB.
--- NOTE | 2017-01-11 13:23 | NUR ---
SOLUMEDROL SOLUMEDROL GIVEN IV.
[2017-01-11 13:30] LABS: BASOPHILS % (AUTO) 0.3 % (0-2); EOSINOPHILS % (AUTO) 0.3 % (0-4); HGB - HEMOGLOBIN 10.2 GM/DL (12-16); IMMATURE GRANULOCYTE # (AUTO) 0.02 T/MM3 (0.00-0.03); IMMATURE GRANULOCYTE % (AUTO) 0.6 % (0.0-0.5); LYMPHOCYTES # (AUTO) 0.4 T/MM3 (1-4.8); LYMPHOCYTES % (AUTO) 9.9 % (23-45); MEAN CORPUSCULAR HGB 29.1 UUG (26-34); MEAN CORPUSCULAR HGB CONC(MCHC 32.9 GM/DL (31-37); MEAN CORPUSCULAR VOLUME 88.6 UM3 (80-100); MEAN PLATELET VOLUME 9.9 UM3 (9.4-12.4); MONOCYTES # (AUTO) 0.1 T/MM3 (0-0.8); NEUTROPHILS % (AUTO) 84.9 % (33-66); WBC - WHITE BLOOD COUNT 3.5 T/MM3 (4.5-11.0)
[2017-01-11 13:40] LABS: ANION GAP 11 MEQ/L (5-15); BUN/CREATININE RATIO 25 RATIO (6-26); CALCIUM 8.8 MG/DL (8.4-10.2); CHLORIDE 101 MEQ/L (98-107); CO2 - CARBON DIOXIDE 26 MEQ/L (22-30); CREATININE 0.8 MG/DL (0.7-1.2); GLOMERULAR FILTRATION RATE 70; GLUCOSE 151 MG/DL (65-110); POTASSIUM 3.9 MEQ/L (3.6-5); SODIUM 138 MEQ/L (134-144)
[2017-01-11] MEDS ORDERED: SALINE FLUSH 10ml SYRINGE ONE (13:56)
[2017-01-11] MEDS ORDERED: IOHEXOL 350 MG/ML 75ml INJECTION ONE (13:56)
[2017-01-11] MEDS ORDERED: NORMAL SALINE 100 ML ONE (13:56)
--- NOTE | 2017-01-11 14:00 | NUR ---
CT PT. TO CT PER CART.
[2017-01-11 14:13] LABS: PROBNP 1080 PG/ML (0-175)
--- NOTE | 2017-01-11 14:16 | NUR ---
CT PT. RETURNS FROM CT.
--- NOTE | 2017-01-11 14:32 | DI ---
Indication: ITS.REASON: elev ddimer. soa PROCEDURE: CTA PULMONARY EMBOLI: Encounter: Initial Comparison: Chest x-ray dated December 31, 2016 Technique: Axial CT pulmonary angiographic phase images were performed through the chest after the administration of intravenous contrast. Coronal and Sagittal MIP reconstructed images were created and reviewed. Automated Exposure Control and Iterative Reconstruction dose reducing techniques were utilized. Contrast: Omnipaque 350 70 mL Findings: Pulmonary arteries: Exam is diagnostic to the interlobar pulmonary arterial level. No large or saddle embolus identified. The segmental and subsegmental pulmonary cannot be well evaluated due to severe motion artifact. Other findings: There is scattered groundglass opacities seen in both upper lobes. No pneumothorax or focal consolidative pneumonia. The central airways are patent. There are two nodules seen in the superior segment left lower lobe best seen on coronal image #48 measuring up to 7 mm in diameter. No axillary or mediastinal adenopathy. The heart size is normal. No pericardial effusion. The upper abdomen shows no acute findings. Bone windows are unremarkable for age. Impression: 1. No large or central pulmonary embolus. 2. Scattered inflammatory or infectious opacities in the upper lobes which are nonspecific. 3. Left lower lobe pulmonary nodules for which a noncontrast CT follow-up is recommended in 6-12 months. .
--- NOTE | 2017-01-11 14:58 | NUR ---
LASIX LASIX GIVEN IV.
[2017-01-11] MEDS ORDERED: FUROSEMIDE 20 MG/2 ML INJECTION IV ONE (15:00)
--- NOTE | 2017-01-11 15:10 | NUR ---
ELIMINATION PT. TAKEN TO BATHROOM PER WHEELCHAIR.
--- NOTE | 2017-01-11 15:15 | NUR ---
DISMISSAL NOTE DISMISSAL INSTRUCTIONS GIVEN TO PT. AND NO FURTHER QUESTIONS. PT. LEFT ED PER WHEELCHAIR WITH HER O2 ACCOMPANIED BY SON.
[2017-01-11 18:41] VITALS: BP 107/53; PULSE 67; RESP 30; TEMP 98; O2SAT 95
== END 2017-01-11 15:15 | disposition home or self-care (01) ==
LOC: ED 12:11
DX: J44.1 Chronic obstructive pulmonary disease with (acute) exacerbation (principal); I11.0 Hypertensive heart disease with heart failure; I50.9 Heart failure, unspecified; Z99.81 Dependence on supplemental oxygen; Z87.891 Personal history of nicotine dependence
CPT/HCPCS: 71275; 80048; 83880; 84484; 85025; 85379; 93005; 94640; 96374; 96375; 99284; J1940; J2930; J7050; Q9967

== ENCOUNTER 2017-07-19 16:36 | Inpatient (IN) ==
[2017-07-19] MEDS ORDERED: ALBUTEROL/IPRATROPIUM 2.5mg-0.5mg/3ml NEB AEROSOL ONE (16:48)
[2017-07-19] MEDS ORDERED: METHYLPREDNISOLONE SOD SUCC 125mg/2ml INJECTION IVP ONE (16:48)
--- NOTE | 2017-07-19 16:52 | Emergency Department Report ---
SOB HPI - General Chief Complaint: Shortness of Breath/Dyspnea Stated Complaint: diff breathing Time Seen by Provider: 07/19/17 16:44 Source: patient Mode of arrival: ambulatory Limitations: no limitations - History of Present Illness She has a history of COPD. She has been having increased SOA over the last 2 weeks. Is worse today. Has been seeing her PCP for this and was started on Prednisone. Is taking 80mg/day currently. Last took an RT treatment at home just prior to arrival. She does wear O2 at home overnight. Is noted to be tachypneic and in tripod position. She is speaking in complete sentences. O2 sats are 90% on RA. MD Complaint: shortness of breath Severity: moderate Relieving factors: oxygen, rest Exacerbating factors: exertion Known history of: COPD Associated symptoms: cough, wheezing, sputum production, orthopnea Treatment prior to arrival: none - Related Data Home Medications Medication Instructions Recorded Confirmed Meloxicam 15 mg PO DAILY PRN #0 03/14/11 07/19/17 Gabapentin 600 mg PO HS #0 02/09/15 07/19/17 Potassium Chloride 10 meq PO DAILY PRN #0 02/09/15 07/19/17 Acetaminophen [Tylenol Extra 1,000 mg PO Q6H PRN #0 02/10/15 07/19/17 Strength] Albuterol Sulfate [Ventolin Hfa] 1 puff INH DAILY PRN #0 06/12/16 07/19/17 Citalopram Hydrobromide 10 mg PO DAILY #0 06/12/16 07/19/17 [Citalopram HBr] Gabapentin 100 mg PO TID PRN #0 06/12/16 07/19/17 Lansoprazole [Prevacid] 15 mg PO BID #0 06/12/16 07/19/17 Allopurinol 100 mg PO DAILY #0 12/19/16 07/19/17 Amox/Clav [Augmentin] 1 tab PO BID 07/19/17 07/19/17 Furosemide [Lasix] 20 mg PO DAILY PRN 07/19/17 07/19/17 LORazepam [Ativan] 0.5 mg PO HS PRN 07/19/17 07/19/17 PredniSONE [Deltasone] 80 mg PO DAILY 07/19/17 07/19/17 Promethazine + Dm Liq [Phenergan 5 ml PO Q4H PRN 07/19/17 07/19/17 Dm Syrup] dilTIAZem HCl [Cartia Xt] 180 mg PO DAILY 07/19/17 07/19/17 Allergies Allergy/AdvReac Type Severity Reaction Status Date / Time cefaclor Allergy Unknown Verified 07/19/17 16:41 Review of Systems Constitutional: Denies: fever, chills, weakness ENT: Denies: ear pain, throat pain, congestion Cardiovascular: Denies: chest pain, palpitations, dyspnea on exertion, edema Respiratory: Denies: cough, dyspnea, wheezes Gastrointestinal: Denies: abdominal pain, nausea, vomiting, diarrhea Integumentary: Denies: rash Neurological: Denies: headache, weakness, numbness, paresthesias PFSH Patient Stated Medical History Cataracts Yes Cardiac Arrhythmia Yes: A FIB Hypertension Yes Asthma Yes Bronchitis Yes Chronic Obstructive Pulmonary Yes Disease (COPD) Pneumonia Yes Gastroesophageal Reflux Yes Disease Ulcer Yes Shingles Yes COPD - Social History Smoking status: Former smoker Physical Exam - Limitations Limitations: no limitations - General General appearance: alert, in no apparent distress - Normal Exams: Neck:: Full range of motion, without adenopathy, JVD, bruits or thyromegaly Cardiovascular:: Regular rate and rhythm, without murmur or gallop, Pulses 2+ all extremities, capillary refill, <2 seconds all extremities Abdomen:: Bowel sounds positive, soft, non-tender, non-distended, no hepatosplenomegaly, masses or bruits noted Neurological:: Patient is alert, and oriented Psychiatric:: Patient exhibits, appropriate attention, emotion and affect - Respiratory Respiratory exam: Present: wheezes (inspiratory and expiratory wheezes throughout all lobes) Course Vital Signs Temperature 97.6 F 07/19/17 16:41 Pulse Rate 84 07/19/17 16:41 Respiratory Rate 26 H 07/19/17 16:41 Blood Pressure 186/81 H 07/19/17 16:41 Pulse Oximetry 92 07/19/17 16:41 Temperature 97.6 F 07/19/17 16:41 Pulse Rate 69 07/19/17 18:51 Respiratory Rate 16 07/19/17 18:51 Blood Pressure 152/68 H 07/19/17 18:51 Pulse Oximetry 96 07/19/17 18:51 Shortness of Breath/Dyspnea - [facility] Narrative Medical decision making narrative: She does have a right middle lobe pneumonia so will start her on some Levaquin today. Labs are normal. She does feel a little better after the duoneb and the solumedrol. Is sating 93% on 3.5 liters per NC. Did talk with Dr Wells and he will accept for admission given her failure on prednisone as an outpatient. - Differential Diagnosis Likely: acute exacerbation of chronic obstructive airways disease, community acquired pneumonia, asthma with exacerbation - Lab Data Attestation: I reviewed the patient's lab results. Result diagrams: 07/19/17 17:56 07/19/17 17:56 Lab Results 07/19/17 07/19/17 Range/Units 17:56 17:56 WBC 8.8 (4.5-11.0) T/MM3 RBC 4.25 (4.00-5.20) M/MM3 Hgb 12.3 (12-16) GM/DL Hct 39.3 (36-46) % MCV 92.5 (80-100) UM3 MCH 28.9 (26-34) UUG MCHC 31.3 (31-37) GM/DL RDW Std Deviation 52.7 H (36.9-50.2) FL Plt Count 253 (130-400) T/MM3 MPV 10.8 (9.4-12.4) UM3 Immature Gran % (Auto) 1.4 H (0.0-0.5) % Neut % (Auto) 84.5 H (33-66) % Lymph % (Auto) 9.8 L (23-45) % [place] % (Auto) 4.1 (0-9.0) % Eos % (Auto) 0.1 (0-4) % Baso % (Auto) 0.1 (0-2) % Neut # (Auto) 7.5 (1.8-7.7) T/MM3 Lymph # (Auto) 0.9 L (1-4.8) T/MM3 [place] # (Auto) 0.4 (0-0.8) T/MM3 Eos # (Auto) 0.0 (0-0.5) T/MM3 Baso # (Auto) 0.0 (0-0.2) T/MM3 Abs Immat Gran (auto) 0.12 H (0.00-0.03) T/MM3 Turbidity < 20 (0-20) Sodium 145 H (134-144) MEQ/L Potassium 4.9 (3.6-5) MEQ/L Chloride 113 H (98-107) MEQ/L Carbon Dioxide 23 (22-30) MEQ/L Anion Gap 9 (5-15) MEQ/L BUN 27.0 H (7-17) MG/DL Creatinine 1.1 (0.7-1.2) MG/DL GFR Calculation 48 BUN/Creatinine Ratio 25 (6-26) RATIO Glucose 111 H (65-110) MG/DL Calculated Osmolality 285 H (261-280) MOSM/KG Calcium 9.4 (8.4-10.2) MG/DL Icterus Index < 2 (0-7) Troponin I < 0.012 (0-0.12) ng/ml Specimen Hemolysis < 15 (0-25) - Radiology Data Attestation: I reviewed the patient's radiology results. Date of Exam: 07/19/17 Ordering Provider: Cherrie Elizondo APRN Type of Exam(s): XR chest 2V Reason for Exam(s): dyspnea INDICATION: dyspnea PROCEDURE: CHEST 2-VIEWS UPRIGHT (PA & LAT) Encounter: Initial COMPARISON: Chest CT dated January 11, 2017 and chest x-ray dated December 31, 2016 FINDINGS: New airspace consolidation in the right middle lobe with obscuration of the right heart border. Left lung appears clear. There is no pleural effusion or pneumothorax. The heart size, mediastinal contours and pulmonary vascularity are within normal limits. There is no significant skeletal abnormality. IMPRESSION: Right middle lobe pneumonia or atelectasis. . Disposition Clinical Impression: COPD exacerbation Disposition: 01 Discharged Home, Self-Care Condition: Stable Prescriptions: No Action Meloxicam 15 mg PO DAILY PRN #0 PRN Reason: PAIN Gabapentin 600 mg PO HS #0 Potassium Chloride 10 meq PO DAILY PRN #0 PRN Reason: WITH FUROSEMIDE Acetaminophen [Tylenol Extra Strength] 1,000 mg PO Q6H PRN #0 PRN Reason: PAIN Albuterol Sulfate [Ventolin Hfa] 1 puff INH DAILY PRN #0 PRN Reason: PRN ORDERS Lansoprazole [Prevacid] 15 mg PO BID #0 Citalopram Hydrobromide [Citalopram HBr] 10 mg PO DAILY #0 Amox/Clav [Augmentin] 1 tab PO BID Promethazine + Dm Liq [Phenergan Dm Syrup] 5 ml PO Q4H PRN PRN Reason: Cough dilTIAZem HCl [Cartia Xt] 180 mg PO DAILY LORazepam [Ativan] 0.5 mg PO HS PRN PRN Reason: Prn Orders Furosemide [Lasix] 20 mg PO DAILY PRN PRN Reason: Prn Orders Gabapentin 100 mg PO TID PRN #0 PRN Reason: PRN ORDERS Allopurinol 100 mg PO DAILY #0 PredniSONE [Deltasone] 80 mg PO DAILY Time of Disposition: 18:53 - Seen By: saud
--- OUTSIDE RECORDS SUMMARY | 2017-07-19 17:23 | External Medical Summary | Referral Summary ---
:1940 Author Organization [facility] Address [address] [place] [address] [place] [address] Care Team Providers Name Role Phone Feli Santiago Primary Care Physician Encounter [facility] [id number] Date(s): 05/13/15 - 05/13/15 [facility] [place] [phone] [place] Discharge Diagnosis: Bronchitis Discharge Diagnosis: Asthma Discharge Disposition: 01-Home or Self Care Attending Physician: Donna Donovan MD Admitting Physician: Donna Donovan MD Vital Signs Most recent to oldest [Reference Range]: 1 Temperature Tympanic [36.6-38.1 degC] 36.9 degC (05/13/15 8:52 AM) Peripheral Pulse Rate [60-100 bpm] 78 bpm (05/13/15 8:52 AM) Respiratory Rate [14-20 br/min] 17 br/min (05/13/15 8:52 AM) Blood Pressure [90-140/60-90 mmHg] 150/68 mmHg *[place]* (05/13/15 8:52 AM) Problem List Condition Effective Dates Status Health Status Informant COPD with acute Active exacerbation(Confirmed) Asthma(Confirmed) Active COPD (chronic obstructive pulmonary Active disease)(Confirmed) Chronic pain(Confirmed) Active Gout(Confirmed) Active Obesity(Confirmed) Active patient Osteoarthritis(Confirmed) Active Tobacco user(Confirmed) Active patient Allergies, Adverse Reactions, Alerts Substance Reaction Severity Status cefaclor MUSCLES RELAX Active Medications acetaminophen 325 mg oral tablet 1-2 tabs, Oral, q5hr, as needed for pain, 0 Refill(s) Start Date: 05/20/14 Status: Orderedaspirin 81 mg, Oral, Daily, 0 Refill(s) Start Date: 06/30/14 Status: Orderedcitalopram 10 mg oral tablet 10 mg 1 tabs, Oral, Daily, # 30 tabs, 0 Refill(s), Pharmacy: [facility] # [id number], 1 tabs Oral Daily Start Date: 10/25/15 Status: OrderedColace 100 mg oral capsule 1 caps, Oral, BID, as needed for constipation, # 20 caps, 0 Refill(s) Start Date: 05/20/14 Status: OrderedDuoNeb 0.5 mg-2.5 mg/3 mL inhalation solution 3 mL, Inhalation, QID, # 30 Each, 0 Refill(s), Pharmacy: [facility] # [id number] Start Date: 11/05/14 Status: Orderedgabapentin 100 mg oral capsule 200 mg 2 caps, Oral, BID, # 120 caps, 4 Refill(s) Start Date: 03/12/15 Status: Orderedipratropium 500 mcg/2.5 mL inhalation solution See Instructions, INHALE ONE VIAL VIA NEBULIZER THREE TIMES A DAY NEEDED FOR WHEEZING, # 120 Each, 1 Refill(s), Pharmacy: [facility] #[id number], INHALE ONE VIAL VIA NEBULIZER THREE TIMES A DAY ASNEEDED FOR WHEEZING Start Date: 08/31/15 Status: OrderedLasix 40 mg oral tablet See Instructions, TAKE 1 TABLET BY MOUTH EVERY DAY, # 30 tabs, 2 Refill(s), eRx : [facility] #[id number], TAKE 1 TABLET BY MOUTH EVERY DAY Start Date: 01/12/15 Status: OrderedMucinex DM 30 mg-600 mg oral tablet, extended release 1 tabs, Oral, q12hr, as needed., 0 Refill(s) Start Date: 05/20/14 Status: Orderedmultivitamin Daily, 0 Refill(s) Start Date: 11/17/14 Status: OrderedNorco 5 mg-325 mg oral tablet 1-2 tabs, Oral, q4hr, as needed for pain, # 90 tabs, 0 Refill(s) Start Date: 05/13/15 Status: Orderedpotassium chloride 10 mEq oral tablet, extended release See Instructions, TAKE 1 TABLET BY MOUTH EVERY DAY, # 30 unknown unit, 2 Refill( s), eRx: [facility] #[id number], TAKE 1 TABLET BY MOUTH EVERY DAY Start Date: 01/12/15 Status: OrderedPriLOSEC 20 mg oral delayed release capsule 20 mg 1 caps, Oral, BID, # 180 caps, 3 Refill(s), Pharmacy: [facility] # [id number], 1 caps Oral BID Start Date: 03/12/15 Status: OrderedProAir HFA 90 mcg/inh inhalation aerosol See Instructions, INHALE TWO PUFFS BY MOUTH EVERY 4 TO 6 HOURS NEEDED, # 8.5 g, 2 Refill(s), Pharmacy: [facility] #[id number] Start Date: 07/02/15 Status: Orderedpromethazine-dextromethorphan 6.25 mg-15 mg/5 mL oral syrup See Instructions, TAKE 5 ML BY MOUTH EVERY 6 HOURS NEEDED FOR COUGH, # 120 unknown unit, eRx: [facility] #[id number], TAKE 5 ML BY MOUTH EVERY 6 HOURS NEEDED FOR COUGH Start Date: 08/31/15 Status: OrderedTessalon Perles 100 mg oral capsule 100 mg 1 caps, Oral, TID, # 30 caps, 3 Refill(s), Pharmacy: [facility] # [id number], 1 caps Oral TID Start Date: 09/23/15 Status: OrderedValium 5 mg oral tablet 2.5 mg 0.5 tabs, Oral, Daily, as needed for anxiety, # 15 tabs, 0 Refill(s) Start Date: 10/25/15 Status: OrderedVentolin HFA 90 mcg/inh inhalation aerosol 1 puffs, Inhalation, QID, as needed for wheezing, # 8 g, 6 Refill(s), Pharmacy: [facility] #[id number], 1 puffs Inhalation QID,PRN:as needed for wheezing Start Date: 09/23/15 Status: Ordered Results No data available for this section Immunizations Vaccine Date Refusal Reason influenza virus vaccine, inactivated 06/25/15 influenza virus vaccine, live 06/25/13 influenza virus vaccine, live 07/15/12 pneumococcal 13-valent conjugate vaccine 03/22/15 pneumococcal 23-polyvalent vaccine 08/14/13 tetanus-diphth toxoids (Td) adult/adol 03/27/08 zoster vaccine live 08/07/13 Procedures Procedure Date Related Diagnosis Body Site Appendectomy Cholecystectomy Hysterectomy Social History Social History Type Response Smoking Status Former smoker; Type: Cigarettes; Tobacco use per day: 1 Pack; Number of years: 30; Total pack years: 301 1Quit in 1990 Assessment and Plan Extracted from: Title: Ambulatory Patient Education Author: Donna Donovan MD Date: 05/13/15 Family Medicine Bronchitis Bronchitis is inflammation of the airways that extend from the windpipe into the lungs (bronchi). The inflammation often causes mucus to develop, which leads to a cough. If the inflammation becomes severe, it may cause shortness of breath. CAUSES Bronchitis may be caused by: Viral infections. Bacteria. Cigarette smoke. Allergens, pollutants, and other irritants. SIGNS AND SYMPTOMS The most common symptom of bronchitis is a frequent cough that produces mucus. Other symptoms include: Fever. Body aches. Chest congestion. Chills. Shortness of breath. Sore throat. DIAGNOSIS Bronchitis is usually diagnosed through a medical history and physical exam. Tests, such as chest X-rays, are sometimes done to rule out other conditions. TREATMENT You may need to avoid contact with whatever caused the problem (smoking, for example). Medicines are sometimes needed. These may include: Antibiotics. These may be prescribed if the condition is caused by bacteria. Cough suppressants. These may be prescribed for relief of cough symptoms. Inhaled medicines. These may be prescribed to help open your airways and make it easier for you to breathe. Steroid medicines. These may be prescribed for those with recurrent ( chronic) bronchitis. HOME CARE INSTRUCTIONS Get plenty of rest. Drink enough fluids to keep your urine clear or pale yellow (unless you have a medical condition that requires fluid restriction). Increasing fluids may help thin your secretions and will prevent dehydration. Only take [id number] or prescription medicines as directed by your health care provider. Only take antibiotics as directed. Make sure you finish them even if you start to feel better. Avoid secondhand smoke, irritating chemicals, and strong fumes. These will make bronchitis worse. If you are a smoker, quit smoking. Consider using nicotine gum or skin patches to help control with drawal symptoms. Quitting smoking will help your lungs heal faster. Put a cool-mist humidifier in your bedroom at night to moisten the air. This may help loosen mucus. Change the water in the humidifier daily. You can also run the hot water in your shower and sit i n the bathroom with the door closed for 510 minutes. Follow up with your health care provider as directed. Wash your hands frequently to avoid catching bronchitis again or spreading an infection to others. SEEK MEDICAL CARE IF: Your symptoms do not improve after 1 week of treatment. SEEK IMMEDIATE MEDICAL CARE IF: Your fever increases. You have chills. You have chest pain. You have worsening shortness of breath. You have bloody sputum. You faint. You have lightheadedness. You have a severe headache. You vomit repeatedly. MAKE SURE YOU: Understand these instructions. Will watch your condition. Will get help right away if you are not doing well or get worse. Document Released: 09/17/2006 Document Revised: 07/08/2014 Document Reviewed: 05/12/2014 [facility] Patient Information 2015 aroundtheway. This information is not intended to replace advice given to you by your health care provider. Make sure you discuss any questions you have with your health care provider. No follow up information was provided. Extracted from: Title: Office Visit Note Author: Donna Donovan MD Date: 05/13/15 Assessment/Plan Asthma Bronchitis Orders: doxycycline, 100 mg 1 caps, Oral, BID, X 3 weeks, # 42 caps, 0 Refill (s), Pharmacy: [facility] #[id number], 1 caps Oral BID,x3 weeks HYDROcodone-acetaminophen, 1-2 tabs, Oral, q4hr, as needed for pain, # 90 tabs, 0 Refill(s) promethazine-codeine, 5 mL, Oral, q4hr, as needed for cough, # 120 mL, 0 Refill(s)
--- OUTSIDE RECORDS SUMMARY | 2017-07-19 17:23 | External Medical Summary | Referral Summary ---
:1940 Author [facility] Address [address] [place] [address] [place] [address] Care Team Providers Name Role Phone Feli Santiago Primary Care Physician Encounter [facility] [id number] Date(s): 10/15/15 - 10/15/15 [facility] [place] [phone] [place] Discharge Diagnosis: COPD with acute exacerbation Discharge Disposition: 01-Home or Self Care Attending Physician: Leona Castro APRN Admitting Physician: Leona Castro APRN Vital Signs Most recent to oldest [Reference Range]: 1 Temperature Tympanic [36.6-38.1 degC] 36.6 degC (10/15/15 1:26 PM) Peripheral Pulse Rate [60-100 bpm] 75 bpm (10/15/15 1:26 PM) Blood Pressure [90-140/60-90 mmHg] 142/72 mmHg *[place]* (10/15/15 1:26 PM) SpO2 94 % (10/15/15 1:26 PM) Problem List Condition Effective Dates Status [...] Daily, # 30 tabs, 0 Refill(s), Pharmacy: [facility] # [id number], 1 tabs Oral Daily Start Date: 10/15/15 Status: OrderedColace 100 mg oral capsule 1 caps, Oral, BID, as needed for constipation, # 20 caps, 0 Refill(s) Start Date: 05/20/14 Status: OrderedDuoNeb 0.5 mg-2.5 mg/3 mL inhalation solution 3 mL, Inhalation, QID, # 30 Each, 0 Refill(s), Pharmacy: [facility] # [id number] Start Date: 11/05/14 Status: Orderedgabapentin 100 mg oral capsule 200 mg 2 caps, Oral, BID, # 120 caps, 4 Refill(s) Start Date: 03/12/15 Status: Orderedipratropium 500 mcg/2.5 mL inhalation solution See Instructions, INHALE ONE VIAL VIA NEBULIZER THREE TIMES A DAY NEEDED FOR WHEEZING, # 120 Each, 1 Refill(s), Pharmacy: [facility] #[id number], INHALE ONE VIAL VIA NEBULIZER THREE TIMES A DAY ASNEEDED FOR WHEEZING Start Date: 08/31/15 Status: OrderedLasix 40 mg oral tablet See Instructions, TAKE 1 TABLET BY MOUTH EVERY DAY, # 30 tabs, 2 Refill(s), eRx : [facility] #[id number], TAKE 1 TABLET BY MOUTH EVERY DAY Start Date: 01/12/15 Status: OrderedLevaquin 750 mg oral tablet 750 mg 1 tabs, Oral, q24hr, X 10 days, # 10 tabs, 0 Refill(s), Pharmacy: [facility] #[id number], 1tabs Oral q24hr,x10 days Start Date: 10/15/15 Stop Date: 10/25/15 Status: OrderedMucinex DM 30 mg-600 mg oral [...] 30 unknown unit, 2 Refill( s), eRx: [facility] #[id number], TAKE 1 TABLET BY MOUTH EVERY DAY Start Date: 01/12/15 Status: OrderedPriLOSEC 20 mg oral delayed release capsule 20 mg 1 caps, Oral, BID, # 180 caps, 3 Refill(s), Pharmacy: [facility] # [id number], 1 caps Oral BID Start Date: 03/12/15 Status: OrderedProAir HFA 90 mcg/inh inhalation aerosol See Instructions, INHALE TWO PUFFS BY MOUTH EVERY 4 TO 6 HOURS NEEDED, # 8.5 g, 2 Refill(s), Pharmacy: [facility] #[id number] Start Date: 07/02/15 Status: Orderedpromethazine-dextromethorphan 6.25 mg-15 mg/5 mL oral syrup See Instructions, TAKE 5 ML BY MOUTH EVERY 6 HOURS NEEDED FOR COUGH, # 120 unknown unit, eRx: [facility] #[id number], TAKE 5 ML BY MOUTH EVERY 6 HOURS NEEDED FOR COUGH Start Date: 08/31/15 Status: OrderedTessalon Perles 100 mg oral capsule 100 mg 1 caps, Oral, TID, # 30 caps, 3 Refill(s), Pharmacy: [facility] # [id number], 1 caps Oral TID Start Date: 09/23/15 Status: OrderedValium 5 mg oral tablet 2.5 mg 0.5 tabs, Oral, Daily, as needed for anxiety, FAX TO El[facility], # 15 tabs, 0 Refill(s) Start Date: 10/11/15 Status: OrderedVentolin HFA 90 mcg/inh inhalation aerosol 1 puffs, Inhalation, QID, as needed for wheezing, # 8 g, 6 Refill(s), Pharmacy: [facility] #[id number], 1 puffs Inhalation QID,PRN:as needed for wheezing [...] 301 1Quit in 1990 Assessment and Plan No data available for this section
--- OUTSIDE RECORDS SUMMARY | 2017-07-19 17:23 | External Medical Summary | Referral Summary ---
:1939 Author Organization [facility] Address [address] [place] [address] [place] [address] Care Team Providers Name Role Phone Feli Santiago Primary Care Physician Encounter [facility] Date(s): 08/20/15 - 08/20/15 [facility] [address] [place] [phone] [place] Discharge Disposition: 01-Home or Self Care Attending Physician: Leona Castro APRN Admitting Physician: Leona Castro APRN Vital Signs Most recent to oldest [Reference Range]: 1 Temperature Tympanic [36.6-38.1 degC] 36.9 degC (08/20/15 10:03 AM) Peripheral Pulse Rate [60-100 bpm] 63 bpm (08/20/15 10:03 AM) Blood Pressure [90-140/60-90 mmHg] 144/76 mmHg *[place]* (08/20/15 10:03 AM) SpO2 96 % (08/20/15 10:03 AM) Problem List Condition Effective Dates Status Health Status Informant COPD with acute Active exacerbation(Confirmed) Asthma(Confirmed) Active Chronic pain(Confirmed) Active Gout(Confirmed) Active Obesity(Confirmed) Active patient Osteoarthritis(Confirmed) Active Tobacco user(Confirmed) Active patient Allergies, Adverse Reactions, Alerts Substance Reaction Severity Status cefaclor MUSCLES RELAX Active Medications acetaminophen 325 mg oral tablet 1-2 tabs, Oral, q5hr, as needed for pain, 0 Refill(s) Start Date: 05/20/14 Status: Orderedaspirin 81 mg, Oral, Daily, 0 Refill(s) Start Date: 06/30/14 Status: OrderedColace 100 mg oral capsule 1 caps, Oral, BID, as needed for constipation, # 20 caps, 0 Refill(s) Start Date: 05/20/14 Status: OrderedDuoNeb 0.5 mg-2.5 mg/3 mL inhalation solution 3 mL, Inhalation, QID, # 30 Each, 0 Refill(s), Pharmacy: [facility] # [id number] Start Date: 11/05/14 Status: Orderedgabapentin 100 mg oral capsule 200 mg 2 caps, Oral, BID, # 120 caps, 4 Refill(s) Start Date: 03/12/15 Status: Orderedipratropium 500 mcg/2.5 mL inhalation solution See Instructions, INHALE ONE VIAL VIA NEBULIZER THREE TIMES A DAY NEEDED FOR WHEEZING, # 225 unknown unit, eRx: [facility] #[id number], INHALE ONE VIAL VIA NEBULIZER THREE TIMES A DAY NEEDED FOR WHEEZING Start Date: 06/30/15 Status: OrderedLasix 40 mg oral tablet See Instructions, TAKE 1 TABLET BY MOUTH EVERY DAY, # 30 tabs, 2 Refill(s), eRx : [facility] #[id number], TAKE 1 TABLET BY MOUTH EVERY DAY [...] 30 unknown unit, 2 Refill( s), eRx: [facility] #[id number], TAKE 1 TABLET BY MOUTH EVERY DAY Start Date: 01/12/15 Status: OrderedPriLOSEC 20 mg oral delayed release capsule 20 mg 1 caps, Oral, BID, # 180 caps, 3 Refill(s), Pharmacy: [facility] # [id number], 1 caps Oral BID Start Date: 03/12/15 Status: OrderedProAir HFA 90 mcg/inh inhalation aerosol See Instructions, INHALE TWO PUFFS BY MOUTH EVERY 4 TO 6 HOURS NEEDED, # 8.5 g, 2 Refill(s), Pharmacy: [facility] #[id number] Start Date: 07/02/15 Status: OrderedPromethazine VC with Codeine oral syrup See Instructions, as needed for cough, 5-10 mL Oral q4-6hr, # 240 mL, 0 Refill(s ) Start Date: 08/20/15 Status: OrderedValium 5 mg oral tablet 2.5 mg 0.5 tabs, Oral, Daily, as needed for anxiety, # 15 tabs, 0 Refill(s) Start Date: 03/12/15 Status: OrderedZithromax Z-Best 250 mg oral tablet 1 packets, Oral, Daily, as directed on package labeling, X 5 days, # 6 tabs, 0 Refill(s), Pharmacy: [facility] #[id number], 1 packets Oral Daily,x5 days, Instr:as directed on package labeling Start Date: 08/20/15 Stop Date: 08/25/15 Status: Ordered Results No data available for [...]
--- OUTSIDE RECORDS SUMMARY | 2017-07-19 17:23 | External Medical Summary | Referral Summary ---
:1940 Author Organization [facility] Address [address] [place] [address] [place] [address] Care Team Providers Name Role Phone Feli Santiago Primary Care Physician Encounter VC Date(s): 02/07/16 - 02/07/16 [facility] [place] [address] Discharge Diagnosis: Chronic pain Discharge Diagnosis: COPD (chronic obstructive pulmonary disease) Discharge Disposition: 01-Home or Self Care Attending Physician: Feli Santiago DO Admitting Physician: Feli Santiago DO Vital Signs Most recent to oldest [Reference Range]: 1 Peripheral Pulse Rate [60-100 bpm] 78 bpm (02/07/16 8:29 AM) Blood Pressure [90-140/60-90 mmHg] 145/78 mmHg *[place]* (02/07/16 8:29 AM) SpO2 97 % (02/07/16 8:29 AM) Problem List Condition Effective Dates Status [...] 06/30/14 Status: Orderedcitalopram 10 mg oral tablet See Instructions, 1 tabs Oral every other day., # 30 tabs, 0 Refill(s), Pharmacy : [facility] #[id number], 1 tabs Oral every other day. Start Date: 01/07/16 Status: OrderedColace 100 mg oral capsule 1 caps, Oral, BID, as needed for constipation, # 20 caps, 0 Refill(s) Start Date: 05/20/14 Status: OrderedDuoNeb 0.5 mg-2.5 mg/3 mL inhalation solution 3 mL, Inhalation, QID, # 30 Each, 0 Refill(s), Pharmacy: [facility] # [id number] Start Date: 11/05/14 Status: Orderedgabapentin 100 mg oral capsule 200 mg 2 caps, Oral, BID, # 120 caps, 4 Refill(s) Start Date: 03/12/15 Status: Orderedipratropium 500 mcg/2.5 mL inhalation solution See Instructions, INHALE ONE VIAL VIA NEBULIZER THREE TIMES A DAY NEEDED FOR WHEEZING, # 120 Each, 1 Refill(s), Pharmacy: [facility] #[id number], INHALE ONE VIAL VIA NEBULIZER THREE TIMES A DAY ASNEEDED FOR WHEEZING Start Date: 08/31/15 Status: OrderedLasix 40 mg oral tablet See Instructions, TAKE 1 TABLET BY MOUTH EVERY DAY, # 30 tabs, 2 Refill(s), eRx : [facility] #[id number], TAKE 1 TABLET BY MOUTH EVERY DAY Start Date: 01/12/15 Status: OrderedMucinex DM 30 mg-600 mg oral tablet, extended release 1 tabs, Oral, q12hr, as needed., 0 Refill(s) Start Date: 05/20/14 Status: Orderedmultivitamin Daily, 0 Refill(s) Start Date: 11/17/14 Status: OrderedNorco 5 mg-325 mg oral tablet 1-2 tabs, Oral, q4hr, as needed for pain, # 90 tabs, 0 Refill(s) Start Date: 01/31/16 Status: Orderedpotassium chloride 10 mEq oral tablet, extended release See Instructions, TAKE 1 TABLET BY MOUTH EVERY DAY, # 30 unknown unit, 2 Refill( s), eRx: [facility] #[id number], TAKE 1 TABLET BY MOUTH EVERY DAY Start Date: 01/12/15 Status: OrderedPriLOSEC 20 mg oral delayed release capsule 20 mg 1 caps, Oral, BID, # 180 caps, 3 Refill(s), Pharmacy: [facility] # [id number], 1 caps Oral BID Start Date: 03/12/15 Status: OrderedProAir HFA 90 mcg/inh inhalation aerosol See Instructions, INHALE TWO PUFFS BY MOUTH EVERY 4 TO 6 HOURS NEEDED, # 8.5 g, 2 Refill(s), Pharmacy: [facility] #[id number] Start Date: 07/02/15 Status: OrderedValium 5 mg oral tablet 2.5 mg 0.5 tabs, Oral, Daily, as needed for anxiety, # 15 tabs, 0 Refill(s) Start Date: 10/25/15 Status: OrderedVentolin HFA 90 mcg/inh inhalation aerosol 1 puffs, Inhalation, QID, as needed for wheezing, # 8 g, 6 Refill(s), Pharmacy: [facility] #[id number], 1 puffs Inhalation QID,PRN:as needed for wheezing Start Date: 01/07/16 Status: Ordered Results No data available for [...] Visit Note Author: Feli Santiago DO Date: 02/07/16 Assessment/Plan Chronic pain Discussed with patient thatit is imperative that she comes in to see me every 3 months and that we cannot continue to prescribe prescriptions if she doesn't comply with this. We victoria terated the conditions of her controlled substance agreement. Patient voices understanding. Return to clinic in 3 months. Ordered: Office Visit Level 4 Est 06724 COPD (chronic obstructive pulmonary disease) She is to let me know if she has any increased sputum production. I advised that she start using her nebulizer again to see if this will improve her symptoms. Ordered: Office Visit Level 4 Est 09328
--- OUTSIDE RECORDS SUMMARY | 2017-07-19 17:23 | External Medical Summary | Referral Summary ---
:1940 Author [facility] Address [address] [place] [address] [place] [address] Care Team Providers Name Role Phone Feli Santiago Primary Care Physician Encounter VC Date(s): 05/03/16 - 05/03/16 [facility] [place] [phone] [place] Discharge Diagnosis: COPD with acute exacerbation Discharge Diagnosis: Rash Discharge Disposition: 01-Home or Self Care Attending Physician: Feli Santiago DO Admitting Physician: Feli Santiago DO Vital Signs Most recent to oldest [Reference Range]: 1 Temperature Tympanic [36.6-38.1 degC] 37.0 degC (05/03/16 9:21 AM) Peripheral Pulse Rate [60-100 bpm] 63 bpm (05/03/16 9:21 AM) Respiratory Rate [14-20 br/min] 18 br/min (05/03/16 9:21 AM) Blood Pressure [90-140/60-90 mmHg] 118/72 mmHg (05/03/16 9:21 AM) SpO2 96 % (05/03/16 9:21 AM) Problem List Condition Effective Dates Status Health Status Informant COPD with acute Active exacerbation(Confirmed) Asthma(Confirmed) Active Spondylosis of cervical Active joint(Confirmed) COPD (chronic obstructive pulmonary Active disease)(Confirmed) Chronic pain(Confirmed) Active Degenerative disc disease, Active cervical(Confirmed) Gout(Confirmed) Active Cervicalgia(Confirmed) Active Obesity(Confirmed) Active patient Osteoarthritis(Confirmed) Active Acquired spondylolisthesis(Confirmed) Active Tobacco user(Confirmed) Active patient Allergies, Adverse Reactions, Alerts Substance Reaction Severity Status cefaclor MUSCLES RELAX Active Medications acetaminophen 325 mg oral tablet 1-2 tabs, Oral, q5hr, as needed for pain, 0 Refill(s) Start Date: 05/20/14 Status: Orderedaspirin 81 mg, Oral, Daily, 0 Refill(s) Start Date: 06/30/14 Status: OrderedBactroban 2% topical cream 1 donta, Topical, TID, # 30 g, 0 Refill(s), Pharmacy: [facility] #[id number] Start Date: 05/03/16 Status: Orderedcitalopram 10 mg oral tablet See Instructions, TAKE ONE TABLET BY MOUTH EVERY OTHER DAY, # 30 tabs, eRx: [facility] #[id number], TAKE ONE TABLET BY MOUTH EVERY OTHER DAY Start Date: 04/24/16 Status: OrderedColace 100 mg oral capsule 1 caps, Oral, BID, as needed for constipation, # 20 caps, 0 Refill(s) Start Date: 05/20/14 Status: Ordereddoxycycline hyclate 100 mg oral tablet 100 mg 1 tabs, Oral, BID, X 7 days, # 14 tabs, 0 Refill(s), Pharmacy: [facility] #[id number], 1 tabs Oral BID,x7 days Start Date: 05/03/16 Stop Date: 05/10/16 Status: OrderedDuoNeb 0.5 mg-2.5 mg/3 mL inhalation solution 3 mL, Inhalation, QID, # 30 Each, 0 Refill(s), Pharmacy: [facility] # [id number] Start Date: 11/05/14 Status: Orderedgabapentin 100 mg oral capsule 200 mg 2 caps, Oral, BID, # 120 caps, 4 Refill(s) Start Date: 03/12/15 Status: Orderedipratropium 500 mcg/2.5 mL inhalation solution See Instructions, INHALE ONE VIAL VIA NEBULIZER THREE TIMES A DAY NEEDED FOR WHEEZING, # 120 Each, 1 Refill(s), Pharmacy: [facility] #[id number], INHALE ONE VIAL VIA NEBULIZER THREE TIMES A DAY ASNEEDED FOR WHEEZING Start Date: 08/31/15 Status: OrderedLasix 40 mg oral tablet See Instructions, TAKE 1 TABLET BY MOUTH EVERY DAY, # 30 tabs, 2 Refill(s), eRx : [facility] #[id number], TAKE 1 TABLET BY MOUTH EVERY DAY [...] 30 unknown unit, 2 Refill( s), eRx: [facility] #[id number], TAKE 1 TABLET BY MOUTH EVERY DAY Start Date: 01/12/15 Status: OrderedpredniSONE 10 mg oral tablet See Instructions, 5 tabs PO daily x3 days, 4 tabs PO daily x3 days, 3 tabs PO daily x3 days, 2 tabs PO daily x3 days, 1 tab PO daily x3 days, # 45 tabs, 0 Refill(s), Pharmacy: [facility] #[id number],5 tabs PO daily x3 days, 4 tabs PO daily x3 days,... Start Date: 04/28/16 Stop Date: 05/05/16 Status: OrderedPriLOSEC 20 mg oral delayed release capsule 20 mg 1 caps, Oral, BID, # 180 caps, 0 Refill(s), Pharmacy: [facility] # [id number], 1 caps Oral BID Start Date: 05/01/16 Status: OrderedProAir HFA 90 mcg/inh inhalation aerosol See Instructions, INHALE TWO PUFFS BY MOUTH EVERY 4 TO 6 HOURS NEEDED, # 8.5 g, 2 Refill(s), Pharmacy: [facility] #[id number] Start Date: 07/02/15 Status: OrderedValium 5 mg oral tablet 2.5 mg 0.5 tabs, Oral, Daily, as needed for anxiety, # 15 tabs, 0 Refill(s) Start Date: 10/25/15 Status: OrderedVentolin HFA 90 mcg/inh inhalation aerosol 1 puffs, Inhalation, QID, as needed for wheezing, # 8 g, 6 Refill(s), Pharmacy: [facility] #[id number], 1 puffs Inhalation QID,PRN:as needed for wheezing [...] Visit Note Author: Feli Santiago DO Date: 05/03/16 Assessment/Plan COPD with acute exacerbation We will go ahead and give her doxycycline and she should continue steroid therapy. Ordered: Office Visit Level 3 Est 06521 Rash We discussed thatit's tough to say if this started out as a spider bite secondary to thetime that it's taken and the differing look of it today. If it was a spider bite we would simply be having her on some steroids and since she is Gene on oral we will make no changes. She is concerned about secondary infection so we will give her some Bactroban toward this off. Ordered: Office Visit Level 3 Est 23495 Orders: doxycycline, 100 mg 1 tabs, Oral, BID, X 7 days, # 14 tabs, 0 Refill( s), Pharmacy: [facility] #[id number], 1 tabs Oral BID,x7 days mupirocin topical, 1 donta, Topical, TID, # 30 g, 0 Refill(s), Pharmacy: [facility] #[id number]
--- OUTSIDE RECORDS SUMMARY | 2017-07-19 17:23 | External Medical Summary | Referral Summary ---
:1939 Author Organization [facility] Address [address] [place] [address] Care Team Providers Name Role Phone Feli Santiago Primary Care Physician Encounter VC Date(s): 03/22/15 - 03/22/15 [facility] [address] [place] [address]- [place] Discharge Diagnosis: Abnormal CT scan, chest Discharge Diagnosis: Multiple lung nodules Discharge Diagnosis: Need for pneumococcal vaccine Discharge Disposition: 01-Home or Self Care Attending Physician: Xander Ford MD Admitting Physician: Xander Ford MD Vital Signs Most recent to oldest [Reference Range]: 1 Temperature Oral [35.8-37.3 degC] 36.9 degC (03/22/15 10:28 AM) Peripheral Pulse Rate [60-100 bpm] 58 bpm *LOW* (03/22/15 10:28 AM) Respiratory Rate [14-20 br/min] 14 br/min (03/22/15 10:28 AM) Blood Pressure [90-140/60-90 mmHg] 140/72 mmHg (03/22/15 10:28 AM) SpO2 96 % (03/22/15 10:28 AM) Problem List Condition Effective Dates Status [...] QID, # 30 Each, 0 Refill(s), Pharmacy: [facility] # [id number] Start Date: 11/05/14 Status: Orderedgabapentin 100 mg oral capsule 200 mg 2 caps, Oral, BID, # 120 caps, 4 Refill(s) Start Date: 03/12/15 Status: Orderedipratropium 500 mcg/2.5 mL inhalation solution See Instructions, INHALE ONE VIAL VIA NEBULIZER THREE TIMES A DAY NEEDED FOR WHEEZING, # 120 Each, 1 Refill(s), Pharmacy: [facility] #[id number], INHALE ONE VIAL VIA NEBULIZER THREE TIMES A DAY ASNEEDED FOR WHEEZING Start Date: 08/31/15 Status: OrderedLasix 40 mg oral tablet See Instructions, TAKE 1 TABLET BY MOUTH EVERY DAY, # 30 tabs, 2 Refill(s), eRx : [facility] #[id number], TAKE 1 TABLET BY MOUTH EVERY DAY [...] 30 unknown unit, 2 Refill( s), eRx: [facility] #[id number], TAKE 1 TABLET BY MOUTH EVERY DAY Start Date: 01/12/15 Status: OrderedPriLOSEC 20 mg oral delayed release capsule 20 mg 1 caps, Oral, BID, # 180 caps, 3 Refill(s), Pharmacy: [facility] # [id number], 1 caps Oral BID Start Date: 03/12/15 Status: OrderedProAir HFA 90 mcg/inh inhalation aerosol See Instructions, INHALE TWO PUFFS BY MOUTH EVERY 4 TO 6 HOURS NEEDED, # 8.5 g, 2 Refill(s), Pharmacy: [facility] #[id number] Start Date: 07/02/15 Status: OrderedPromethazine VC with Codeine oral syrup See Instructions, as needed for cough, 5-10 mL Oral q4-6hr, # 240 mL, 0 Refill(s ) Start Date: 08/20/15 Status: Orderedpromethazine-dextromethorphan 6.25 mg-15 mg/5 mL oral syrup See Instructions, TAKE 5 ML BY MOUTH EVERY 6 HOURS NEEDED FOR COUGH, # 120 unknown unit, eRx: [facility] #[id number], TAKE 5 ML BY MOUTH EVERY 6 HOURS NEEDED FOR COUGH Start Date: 08/31/15 Status: OrderedTessalon Perles 100 mg oral capsule 100 mg 1 caps, Oral, TID, # 30 caps, 3 Refill(s), Pharmacy: [facility] # [id number], 1 caps Oral TID Start Date: 09/23/15 Status: OrderedValium 5 mg oral tablet 2.5 mg 0.5 tabs, Oral, Daily, as needed for anxiety, # 15 tabs, 0 Refill(s) Start Date: 03/12/15 Status: OrderedVentolin HFA 90 mcg/inh inhalation aerosol 1 puffs, Inhalation, QID, as needed for wheezing, # 8 g, 6 Refill(s), Pharmacy: [facility] #[id number], 1 puffs Inhalation QID,PRN:as needed for wheezing [...]
--- OUTSIDE RECORDS SUMMARY | 2017-07-19 17:23 | External Medical Summary | Referral Summary ---
:1939 Author Organization [facility] Address [address] [place] [address] [place] [address] Care Team Providers Name Role Phone Feli Santiago Primary Care Physician Encounter VC Date(s): 05/15/16 - 05/15/16 [facility] [place] [address] [place] Discharge Diagnosis: Anxiety Discharge Diagnosis: COPD (chronic obstructive pulmonary disease) Discharge Diagnosis: Chronic pain Discharge Disposition: 01-Home or Self Care Attending Physician: Feli Santiago DO Admitting Physician: Feli Santiago DO Vital Signs Most recent to oldest [Reference Range]: 1 Peripheral Pulse Rate [60-100 bpm] 62 bpm (05/15/16 8:30 AM) Respiratory Rate [14-20 br/min] 18 br/min (05/15/16 8:30 AM) Blood Pressure [90-140/60-90 mmHg] 144/84 mmHg *[place]* (05/15/16 8:30 AM) SpO2 94 % (05/15/16 8:30 AM) Problem List Condition Effective Dates Status Health Status Informant COPD with acute Active exacerbation(Confirmed) Anxiety(Confirmed) Active Asthma(Confirmed) Active Spondylosis of cervical Active joint(Confirmed) [...] TID, # 30 g, 0 Refill(s), Pharmacy: [facility] #[id number] Start Date: 05/03/16 Status: OrderedBreo Ellipta 100 mcg-25 mcg/inh inhalation powder 1 puffs, Inhalation, Daily, SAMPLE GIVEN, # 30 Each, 0 Refill(s) Start Date: 05/15/16 Status: Orderedcitalopram 10 mg oral tablet 10 mg 1 tabs, Oral, Daily, # 30 tabs, 1 Refill(s), Pharmacy: [facility] # [id number], 1 tabs Oral Daily Start Date: 05/15/16 Status: OrderedColace 100 mg oral capsule 1 caps, Oral, BID, as needed for constipation, # 20 caps, 0 Refill(s) Start Date: 05/20/14 Status: OrderedDuoNeb 0.5 mg-2.5 mg/3 mL inhalation solution 3 mL, Inhalation, QID, # 30 Each, 0 Refill(s), Pharmacy: [facility] # [id number] Start Date: 11/05/14 Status: Orderedgabapentin 100 mg oral capsule 200 mg 2 caps, Oral, BID, # 120 caps, 4 Refill(s) Start Date: 03/12/15 Status: Orderedipratropium 500 mcg/2.5 mL inhalation solution See Instructions, INHALE ONE VIAL VIA NEBULIZER THREE TIMES A DAY NEEDED FOR WHEEZING, # 120 Each, 1 Refill(s), Pharmacy: [facility] #[id number], INHALE ONE VIAL VIA NEBULIZER THREE TIMES A DAY ASNEEDED FOR WHEEZING Start Date: 08/31/15 Status: OrderedLasix 40 mg oral tablet See Instructions, TAKE 1 TABLET BY MOUTH EVERY DAY, # 30 tabs, 2 Refill(s), eRx : [facility] #[id number], TAKE 1 TABLET BY MOUTH EVERY DAY Start Date: 01/12/15 Status: OrderedMucinex DM 30 mg-600 mg oral tablet, extended release 1 tabs, Oral, q12hr, as needed., 0 Refill(s) Start Date: 05/20/14 Status: Orderedmultivitamin Daily, 0 Refill(s) Start Date: 11/17/14 Status: OrderedNorco 5 mg-325 mg oral tablet 1-2 tabs, Oral, q4hr, as needed for pain, # 90 tabs, 0 Refill(s) Start Date: 05/15/16 Status: Orderedpotassium chloride 10 mEq oral tablet, extended release See Instructions, TAKE 1 TABLET BY MOUTH EVERY DAY, # 30 unknown unit, 2 Refill( s), eRx: [facility] #[id number], TAKE 1 TABLET BY MOUTH EVERY DAY Start Date: 01/12/15 Status: OrderedPriLOSEC 20 mg oral delayed release capsule 20 mg 1 caps, Oral, BID, # 180 caps, 0 Refill(s), Pharmacy: [facility] # [id number], 1 caps Oral BID Start Date: 05/01/16 Status: OrderedProAir HFA 90 mcg/inh inhalation aerosol See Instructions, INHALE TWO PUFFS BY MOUTH EVERY 4 TO 6 HOURS NEEDED, # 8.5 g, 2 Refill(s), Pharmacy: [facility] #[id number] Start Date: 07/02/15 Status: OrderedValium 5 mg oral tablet 2.5 mg 0.5 tabs, Oral, Daily, as needed for anxiety, # 15 tabs, 0 Refill(s) Start Date: 10/25/15 Status: OrderedVentolin HFA 90 mcg/inh inhalation aerosol 1 puffs, Inhalation, QID, as needed for wheezing, # 8 g, 6 Refill(s), Pharmacy: [facility] #[id number], 1 puffs Inhalation QID,PRN:as needed for wheezing [...] Visit Note Author: Feli Santiago DO Date: 05/15/16 Assessment/Plan Anxiety We will go ahead and officially increase hercitalopram to daily. We will follow-up with her in 3 months. Ordered: Office Visit Level 4 Est 08112 Chronic pain Continue current pain regimen. Return to clinic 3 months. Ordered: Office Visit Level 4 Est 51335 COPD (chronic obstructive pulmonary disease) We will add BreoEllipta 100 daily to her regimen. I demonstrated the inhaler to her and advised her to rinse her mouth out after use. She will retu rn to clinic in 3 months if this is effective and sooner if it is not. Ordered: Office Visit Level 4 Est 01817 Orders: citalopram, 10 mg 1 tabs, Oral, Daily, # 30 tabs, 1 Refill(s), Pharmacy: [facility] #[id number], 1 tabs Oral Daily HYDROcodone-acetaminophen, 1-2 tabs, Oral, q4hr, as needed for pain, # 90 tabs, 0 Refill(s) Lipid Panel
--- OUTSIDE RECORDS SUMMARY | 2017-07-19 17:23 | External Medical Summary | Referral Summary ---
:1939 Author Organization [facility] Address [address] [place] [address] Care Team Providers Name Role Phone Feli Santiago Primary Care Physician Encounter VC Date(s): 03/22/15 - 03/22/15 [facility] [address] [place] [address]- [place] Discharge Diagnosis: Abnormal CT [...] QID, # 30 Each, 0 Refill(s), Pharmacy: [facility] # [id number] Start Date: 11/05/14 Status: Orderedgabapentin 100 mg oral capsule 200 mg 2 caps, Oral, BID, # 120 caps, 4 Refill(s) Start Date: 03/12/15 Status: Orderedipratropium 500 mcg/2.5 mL inhalation solution See Instructions, INHALE ONE VIAL VIA NEBULIZER THREE TIMES A DAY NEEDED FOR WHEEZING, # 120 Each, 1 Refill(s), Pharmacy: [facility] #[id number], INHALE ONE VIAL VIA NEBULIZER THREE TIMES A DAY ASNEEDED FOR WHEEZING Start Date: 08/31/15 Status: OrderedLasix 40 mg oral tablet See Instructions, TAKE 1 TABLET BY MOUTH EVERY DAY, # 30 tabs, 2 Refill(s), eRx : [facility] #[id number], TAKE 1 TABLET BY MOUTH EVERY DAY [...] unknown unit, 2 Refill( s), eRx: [facility] #[id number], TAKE 1 TABLET BY MOUTH EVERY DAY Start Date: 01/12/15 Status: OrderedPriLOSEC 20 mg oral delayed release capsule 20 mg 1 caps, Oral, BID, # 180 caps, 3 Refill(s), Pharmacy: [facility] # [id number], 1 caps Oral BID Start Date: 03/12/15 Status: OrderedProAir HFA 90 mcg/inh inhalation aerosol See Instructions, INHALE TWO PUFFS BY MOUTH EVERY 4 TO 6 HOURS NEEDED, # 8.5 g, 2 Refill(s), Pharmacy: [facility] #[id number] Start Date: 07/02/15 Status: OrderedPromethazine VC with Codeine oral syrup See Instructions, as needed for cough, 5-10 mL Oral q4-6hr, # 240 mL, 0 Refill(s ) Start Date: 08/20/15 Status: Orderedpromethazine-dextromethorphan 6.25 mg-15 mg/5 mL oral syrup See Instructions, TAKE 5 ML BY MOUTH EVERY 6 HOURS NEEDED FOR COUGH, # 120 unknown unit, eRx: [facility] #[id number], TAKE 5 ML BY MOUTH EVERY 6 HOURS NEEDED FOR COUGH Start Date: 08/31/15 Status: OrderedTessalon Perles 100 mg oral capsule 100 mg 1 caps, Oral, TID, # 30 caps, 3 Refill(s), Pharmacy: [facility] # [id number], 1 caps Oral TID Start Date: 09/23/15 Status: OrderedValium 5 mg oral tablet 2.5 mg 0.5 tabs, Oral, Daily, as needed for anxiety, # 15 tabs, 0 Refill(s) Start Date: 03/12/15 Status: OrderedVentolin HFA 90 mcg/inh inhalation aerosol 1 puffs, Inhalation, QID, as needed for wheezing, # 8 g, 6 Refill(s), Pharmacy: [facility] #[id number], 1 puffs Inhalation QID,PRN:as needed for wheezing [...]
--- OUTSIDE RECORDS SUMMARY | 2017-07-19 17:23 | External Medical Summary | Referral Summary ---
:1940 Author Organization [facility] Address [address] [place] [address] [place] [address] Care Team Providers Name Role Phone Feli Santiago Primary Care Physician Encounter VC Date(s): 11/14/16 - 11/14/16 [facility] [place] [address] [place] Discharge Diagnosis: Chronic pain Discharge Diagnosis: Benign hypertension Discharge Diagnosis: Great toe pain Discharge Diagnosis: COPD (chronic obstructive pulmonary disease) Discharge Disposition: 01-Home or Self Care Attending Physician: Feli Santiago DO Admitting Physician: Feli Santiago DO Vital Signs Most recent to oldest [Reference Range]: 1 Temperature Tympanic [36.6-38.1 degC] 36.7 degC (11/14/16 8:24 AM) Peripheral Pulse Rate [60-100 bpm] 73 bpm (11/14/16 8:24 AM) Blood Pressure [90-140/60-90 mmHg] 134/78 mmHg (11/14/16 8:24 AM) SpO2 95 % (11/14/16 8:24 AM) Problem List Condition Effective Dates Status Health Status Informant COPD with acute Active exacerbation(Confirmed) Anxiety(Confirmed) Active Asthma(Confirmed) Active Benign hypertension(Confirmed) Active Spondylosis of cervical Active joint(Confirmed) COPD (chronic obstructive pulmonary Active disease)(Confirmed) Chronic pain(Confirmed) Active Degenerative disc disease, Active cervical(Confirmed) Gout(Confirmed) Active Cervicalgia(Confirmed) Active Obesity(Confirmed) Active patient Osteoarthritis(Confirmed) Active Acute and chronic respiratory failure Active with hypoxia(Confirmed) Acquired spondylolisthesis(Confirmed) Active Tobacco user(Confirmed) Active patient Allergies, Adverse Reactions, Alerts Substance Reaction Severity Status cefaclor MUSCLES RELAX Active Medications amLODIPine 5 mg oral tablet 5 mg 1 tabs, Oral, Daily, for blood pressures above 140, # 30 tabs, 11 Refill(s) , Pharmacy: [facility] #[id number], 1 tabs Oral Daily,Instr:for blood pressures above 140 Start Date: 08/14/16 Status: Orderedaspirin 81 mg, Oral, Daily, 0 Refill(s) Start Date: 06/30/14 Status: OrderedBreo Ellipta 100 mcg-25 mcg/inh inhalation powder 1 puffs, Inhalation, Daily, SAMPLE GIVEN, # 30 Each, 0 Refill(s) Start Date: 05/15/16 Status: Orderedcitalopram 10 mg oral tablet 10 mg 1 tabs, Oral, Daily, # 30 tabs, 11 Refill(s), Pharmacy: [facility] # [id number], 1 tabs Oral Daily Start Date: 08/14/16 Status: OrderedDuoNeb 0.5 mg-2.5 mg/3 mL inhalation solution 3 mL, Inhalation, QID, # 30 Each, 2 Refill(s), Pharmacy: [facility] # [id number] Start Date: 07/24/16 Status: Orderedgabapentin 100 mg oral capsule 100 mg 1 caps, Oral, BID, as needed for pain, 0 Refill(s) Start Date: 06/19/16 Status: Orderedgabapentin 600 mg oral tablet See Instructions, TAKE ONE TABLET BY MOUTH AT BEDTIME, # 90 tabs, eRx: [facility] #[id number], TAKE ONE TABLET BY MOUTH AT BEDTIME Start Date: 09/20/16 Status: Orderedgabapentin 600 mg oral tablet 600 mg 1 tabs, Oral, Bedtime (once a day), 0 Refill(s) Start Date: 06/19/16 Status: OrderedLasix 40 mg oral tablet See Instructions, TAKE 1 TABLET BY MOUTH EVERY DAY, # 30 tabs, 2 Refill(s), eRx : [facility] #[id number], TAKE 1 TABLET BY MOUTH EVERY DAY Start Date: 01/12/15 Status: Orderedmeloxicam 15 mg oral tablet 15 mg 1 tabs, Oral, Daily, # 30 tabs, 0 Refill(s) Start Date: 08/14/16 Status: OrderedMucinex DM 30 mg-600 mg oral tablet, extended release 1 tabs, Oral, q12hr, as needed., 0 Refill(s) Start Date: 05/20/14 Status: Orderedmultivitamin Daily, 0 Refill(s) Start Date: 11/17/14 Status: OrderedNorco 5 mg-325 mg oral tablet 1-2 tabs, Oral, q4hr, as needed for pain, # 90 tabs, 0 Refill(s) Start Date: 11/14/16 Status: Orderedpotassium chloride 10 mEq oral tablet, extended release See Instructions, TAKE 1 TABLET BY MOUTH EVERY DAY, # 30 unknown unit, 2 Refill( s), eRx: [facility] #[id number], TAKE 1 TABLET BY MOUTH EVERY DAY Start Date: 01/12/15 Status: OrderedPriLOSEC 20 mg oral delayed release capsule 20 mg 1 caps, Oral, BID, # 180 caps, 0 Refill(s), Pharmacy: [facility] # [id number], 1 caps Oral BID Start Date: 11/14/16 Status: OrderedProAir HFA 90 mcg/inh inhalation aerosol See Instructions, INHALE TWO PUFFS BY MOUTH EVERY 4 TO 6 HOURS NEEDED, # 8.5 g, 2 Refill(s), Pharmacy: [facility] #[id number] Start Date: 07/02/15 Status: OrderedPromethazine DM 6.25 mg-15 mg/5 mL oral syrup 5 mL, Oral, q6hr, as needed for cough, # 120 mL, 0 Refill(s), Pharmacy: [facility] #[id number] Start Date: 09/14/16 Status: Ordered Results No [...] zoster vaccine live 08/07/13 Given 1Result Comment: [id number] Comment: [06/10/2015 Uncharted] Uploaded in Error - [...] regimen. Ordered: Office Visit Level 4 Est 90803 Chronic pain Continue current regimen, return to clinic in 3 months. Ordered: Office Visit Level 4 Est 86323 COPD (chronic obstructive pulmonary disease) Exacerbation is improving, continue to monitor. Ordered: Office Visit Level 4 Est 25979 Great toe pain Uric acid today with further recommendations after results. Ordered: Office Visit Level 4 Est 75160 Uric Acid
--- OUTSIDE RECORDS SUMMARY | 2017-07-19 17:23 | External Medical Summary | Referral Summary ---
:1940 Author Organization [facility], [facility] Address [address] [place] [address] Care Team Providers Name Role Phone Feli Santiago Primary Care Physician Encounter VC Date(s): 03/22/15 - 03/22/15 [facility] [address] [place] [address]- [place] Discharge Diagnosis: Abnormal CT [...] # 30 Each, 0 Refill(s), Pharmacy: [facility] # [id number] Start Date: 11/05/14 Status: Orderedgabapentin 100 mg oral capsule 200 mg 2 caps, Oral, BID, # 120 caps, 4 Refill(s) Start Date: 03/12/15 Status: Orderedipratropium 500 mcg/2.5 mL inhalation solution See Instructions, INHALE ONE VIAL VIA NEBULIZER THREE TIMES A DAY NEEDED FOR WHEEZING, # 225 unknown unit, eRx: [facility] #[id number], INHALE ONE VIAL VIA NEBULIZER THREE TIMES A DAY NEEDED FOR WHEEZING Start Date: 06/30/15 Status: OrderedLasix 40 mg oral tablet See Instructions, TAKE 1 TABLET BY MOUTH EVERY DAY, # 30 tabs, 2 Refill(s), eRx : [facility] #[id number], TAKE 1 TABLET BY MOUTH EVERY DAY [...] unknown unit, 2 Refill( s), eRx: [facility] #[id number], TAKE 1 TABLET BY MOUTH EVERY DAY Start Date: 01/12/15 Status: OrderedPriLOSEC 20 mg oral delayed release capsule 20 mg 1 caps, Oral, BID, # 180 caps, 3 Refill(s), Pharmacy: [facility] # [id number], 1 caps Oral BID Start Date: 03/12/15 Status: OrderedProAir HFA 90 mcg/inh inhalation aerosol See Instructions, INHALE TWO PUFFS BY MOUTH EVERY 4 TO 6 HOURS NEEDED, # 8.5 g, 2 Refill(s), Pharmacy: [facility] #[id number] Start Date: 07/02/15 Status: OrderedPromethazine VC with Codeine oral syrup 5 mL, Oral, q4hr, as needed for cough, # 240 mL, 0 Refill(s) Start Date: 06/16/15 Status: OrderedValium 5 mg oral tablet 2.5 mg 0.5 tabs, Oral, Daily, as needed for anxiety, # 15 tabs, 0 Refill(s) Start Date: 03/12/15 Status: Ordered Results No data available for [...]
--- OUTSIDE RECORDS SUMMARY | 2017-07-19 17:24 | External Medical Summary | Referral Summary ---
:1939 Author Organization [facility]BDIR[facility], [facility] Address [address] [place] [address] [place] [address] Care Team Providers Name Role Phone Feli Santiago Primary Care Physician Encounter VC Date(s): 07/19/15 - 07/19/15 [facility], [address] [place] [address] [place] Discharge Diagnosis: Viral URI with cough Discharge Diagnosis: Gastroenteritis Discharge Disposition: 01-Home or Self Care Attending Physician: Fausto Garcia PA-C Admitting Physician: Fausto Garcia PA-C Vital Signs Most recent to oldest [Reference Range]: 1 Temperature Tympanic [36.6-38.1 degC] 36.7 degC (07/19/15 12:50 PM) Apical Heart Rate [60-100 bpm] 62 bpm (07/19/15 12:50 PM) Blood Pressure [90-140/60-90 mmHg] 116/68 mmHg (07/19/15 12:50 PM) SpO2 96 % (07/19/15 12:50 PM) Problem List Condition Effective Dates Status [...] Refill(s), Pharmacy: [facility] # [id number] Start Date: 11/05/14 Status: Orderedgabapentin 100 mg oral capsule 200 mg 2 caps, Oral, BID, # 120 caps, 4 Refill(s) Start Date: 03/12/15 Status: Orderedipratropium 500 mcg/2.5 mL inhalation solution See Instructions, INHALE ONE VIAL VIA NEBULIZER THREE TIMES A DAY NEEDED FOR WHEEZING, # 225 unknown unit, eRx: [facility] #[id number], INHALE ONE VIAL VIA NEBULIZER THREE TIMES A DAY NEEDED FOR WHEEZING Start Date: 06/30/15 Status: OrderedLasix 40 mg oral tablet See Instructions, TAKE 1 TABLET BY MOUTH EVERY DAY, # 30 tabs, 2 Refill(s), eRx : [facility] #[id number], TAKE 1 TABLET BY MOUTH EVERY DAY [...] Refill( s), eRx: [facility] #[id number], TAKE 1 TABLET BY MOUTH EVERY DAY Start Date: 01/12/15 Status: OrderedPriLOSEC 20 mg oral delayed release capsule 20 mg 1 caps, Oral, BID, # 180 caps, 3 Refill(s), Pharmacy: [facility] # [id number], 1 caps Oral BID Start Date: 03/12/15 Status: OrderedProAir HFA 90 mcg/inh inhalation aerosol See Instructions, INHALE TWO PUFFS BY MOUTH EVERY 4 TO 6 HOURS NEEDED, # 8.5 g, 2 Refill(s), Pharmacy: [facility] #[id number] Start Date: 07/02/15 Status: OrderedPromethazine VC with Codeine oral syrup 5 mL, Oral, q4hr, as needed for cough, # 240 mL, 0 Refill(s) Start Date: 06/16/15 Status: OrderedValium 5 mg oral tablet 2.5 mg 0.5 tabs, Oral, Daily, as needed for anxiety, # 15 tabs, 0 Refill(s) Start Date: 03/12/15 Status: Ordered Results Hematology Most recent to oldest [Reference Range]: 1 WBC [5.0-10.0 10*3/uL] 7.8 10*3/uL (07/19/15 1:45 PM) RBC [3.70-5.20] 3.99 (07/19/15 1:45 PM) Hgb [12.0-16.0 gm/dL] 11.7 gm/dL *LOW* (07/19/15 1:45 PM) Hct [37.0-47.0 %] 35.3 % *LOW* (07/19/15 1:45 PM) MCV [80.0-96.0 fL] 88.5 fL (07/19/15 1:45 PM) MCH [26.0-34.0 pg] 29.3 pg (07/19/15 1:45 PM) MCHC [32.0-36.0 gm/dL] 33.1 gm/dL (07/19/15 1:45 PM) RDW [0.0-14.5 %] 12.9 % (07/19/15 1:45 PM) Platelet [150-400 10*3/uL] 301 10*3/uL (07/19/15 1:45 PM) MPV [8.8-14.8 fL] 9.7 fL (07/19/15 1:45 PM) Neutrophils [50-70 %] 58 % (07/19/15 1:45 PM) Lymphocytes [20-40 %] 32 % (07/19/15 1:45 PM) Monocytes [4-8 %] 6 % (07/19/15 1:45 PM) Eosinophils [0-6 %] 3 % (07/19/15 1:45 PM) Basophils [0-2 %] 0 % (07/19/15 1:45 PM) Neutro Absolute [2.50-7.00 10*3] 4.57 10*3 (07/19/15 1:45 PM) Lymph Absolute [1.00-4.00 10*3] 2.48 10*3 (07/19/15 1:45 PM) [place] Absolute [0.20-0.80 10*3] 0.50 10*3 (07/19/15 1:45 PM) Eos Absolute [0.00-0.60 10*3] 0.27 10*3 (07/19/15 1:45 PM) Baso Absolute [0.00-0.30] 0.02 (07/19/15 1:45 PM) Immunizations Vaccine Date Refusal Reason influenza virus [...] 1990 Assessment and Plan Extracted from: Title: diarrhea, nausea Author: Fausto Garcia PA-C Date: 07/19/15 Assessment/Plan Gastroenteritis Patient requested something to make something for the stomach ; I don't think there is anything that I can give her that would be helpful. Her nausea and vomiting and diarrhea ceased, she just doesn't feel right. If her abdomen becomes acute,discussed those symptoms, Irecommended follow up with the emergency roomassessment by primary care if still symptomatic in a week. Viral URI with cough Recommend supportive care. Rest. Practice good hand hygiene. Increase fluids. Okay to use [id number] cough and cold medication as needed. Tylenol/Ibuprofen as needed for fev er or pain. FU with PCP if not improving, worsening symptoms, or as needed. Questions were answered. Patient verbalized understanding. Patient left in stable condition. Orders: CBC w/ Differential Comprehensive Metabolic Panel XR Chest 2 Views
--- OUTSIDE RECORDS SUMMARY | 2017-07-19 17:24 | External Medical Summary | Referral Summary ---
:1939 Author Organization [facility] Address [address] [place] [address] [place] [address] Care Team Providers Name Role Phone Feli Santiago Primary Care Physician Encounter [facility] [id number] Date(s): 06/22/16 - 06/22/16 [facility] [place] [address] [place] Discharge Diagnosis: [...] 1 Temperature Tympanic [36.6-38.1 degC] 36.6 degC (06/22/16 9:00 AM) Peripheral Pulse Rate [60-100 bpm] 70 bpm (06/22/16 9:00 AM) Respiratory Rate [14-20 br/min] 18 br/min (06/22/16 9:00 AM) Blood Pressure [90-140/60-90 mmHg] 160/80 mmHg *HI* (06/22/16 9:00 AM) SpO2 90 % [...] pain, 0 Refill(s) Start Date: 05/20/14 Status: OrderedamLODIPine 5 mg oral tablet 5 mg 1 tabs, Oral, Daily, for blood pressures above 140, # 30 tabs, 0 Refill(s) , Pharmacy: [facility] #[id number], 1 tabs Oral Daily,Instr:for blood pressures above 140 Start Date: 06/22/16 Status: Orderedaspirin 81 mg, Oral, Daily, 0 Refill(s) Start Date: 06/30/14 Status: OrderedBactroban 2% topical cream 1 donta, Topical, TID, # 30 g, 0 Refill(s), Pharmacy: [facility] #[id number] Start Date: 05/03/16 Status: OrderedBreo Ellipta 100 mcg-25 mcg/inh inhalation powder 1 puffs, Inhalation, Daily, SAMPLE GIVEN, # 30 Each, 0 Refill(s) Start Date: 05/15/16 Status: Orderedcitalopram 10 mg oral tablet 10 mg 1 tabs, Oral, Daily, # 30 tabs, 1 Refill(s), Pharmacy: [facility] # [id number], 1 tabs Oral Daily Start Date: 05/15/16 Status: OrderedColace 100 mg oral capsule 1 caps, Oral, BID, as needed for constipation, # 20 caps, 0 Refill(s) Start Date: 05/20/14 Status: OrderedDuoNeb 0.5 mg-2.5 mg/3 mL inhalation solution 3 mL, Inhalation, QID, # 30 Each, 0 Refill(s), Pharmacy: [facility] # [id number] Start Date: 11/05/14 Status: Orderedgabapentin 100 mg oral capsule 100 mg 1 caps, Oral, BID, as needed for pain, 0 Refill(s) Start Date: 06/19/16 Status: Orderedgabapentin 600 mg oral tablet 600 mg 1 tabs, Oral, Bedtime (once a day), 0 Refill(s) Start Date: 06/19/16 Status: OrderedLasix 40 mg oral tablet See Instructions, TAKE 1 TABLET BY MOUTH EVERY DAY, # 30 tabs, 2 Refill(s), eRx : [facility] #[id number], TAKE 1 TABLET BY MOUTH EVERY DAY [...] 30 unknown unit, 2 Refill( s), eRx: [facility] #[id number], TAKE 1 TABLET BY MOUTH EVERY DAY Start Date: 01/12/15 Status: OrderedpredniSONE 20 mg oral tablet 20 mg 1 tabs, Oral, Daily, X 14 days, # 14 tabs, 0 Refill(s), Pharmacy: [facility] #[id number], 1 tabs Oral Daily,x14 days Start Date: 06/22/16 Stop Date: 07/06/16 Status: OrderedPrevacid SoluTab 15 mg oral tablet, disintegrating 15 mg 1 tabs, Oral, BID, 0 Refill(s) Start Date: 06/19/16 Status: OrderedProAir HFA 90 mcg/inh inhalation aerosol See Instructions, INHALE TWO PUFFS BY MOUTH EVERY 4 TO 6 HOURS NEEDED, # 8.5 g, 2 Refill(s), Pharmacy: [facility] #[id number] Start Date: 07/02/15 Status: OrderedSpiriva 18 mcg, Inhalation, Daily, 0 Refill(s), Samples: 1 Start Date: 06/22/16 Status: OrderedValium 5 mg oral tablet 2.5 [...] in one month. Ordered: [facility] 7 Day Disch 91921 Benign hypertension Continue amlodipine, recheck blood pressure was 144/ 68. We'll reevaluate in one month when she is off the steroids. Ordered: [facility] 7 Day Disch 71276 COPD with acute exacerbation We will go [...] about a week. Ordered: [facility] 7 Day Disch [id number] Encounter for immunization Hospital discharge follow-up Continue oxygen, continue all medication changes, return to clinic in 1 month. Ordered: [facility] 7 Day Disch [id number]
--- OUTSIDE RECORDS SUMMARY | 2017-07-19 17:24 | External Medical Summary | Referral Summary ---
:1939 Author [facility] Address [address] [place] [address] [place] [address] Care Team Providers Name Role Phone Feli Santiago Primary Care Physician Encounter [facility] [id number] Date(s): 01/07/16 - 01/07/16 [facility] [place] [address] [place] Discharge Diagnosis: Neck pain Discharge Disposition: 01-Home or Self Care Attending Physician: Leona Castro APRN Admitting Physician: Leona Castro APRN Vital Signs Most recent to oldest [Reference Range]: 1 Temperature Tympanic [36.6-38.1 degC] 36.6 degC (01/07/16 9:55 AM) Peripheral Pulse Rate [60-100 bpm] 50 bpm *LOW* (01/07/16 9:55 AM) Blood Pressure [90-140/60-90 mmHg] 130/68 mmHg (01/07/16 9:55 AM) SpO2 97 % (01/07/16 9:55 AM) Problem List Condition Effective Dates Status [...] # 30 tabs, 0 Refill(s), Pharmacy : [facility] #[id number], 1 tabs Oral every other day. Start Date: 01/07/16 Status: OrderedColace 100 mg oral capsule 1 caps, Oral, BID, as needed for constipation, # 20 caps, 0 Refill(s) Start Date: 05/20/14 Status: OrderedDuoNeb 0.5 mg-2.5 mg/3 mL inhalation solution 3 mL, Inhalation, QID, # 30 Each, 0 Refill(s), Pharmacy: [facility] # [id number] Start Date: 11/05/14 Status: Orderedgabapentin 100 mg oral capsule 200 mg 2 caps, Oral, BID, # 120 caps, 4 Refill(s) Start Date: 03/12/15 Status: Orderedipratropium 500 mcg/2.5 mL inhalation solution See Instructions, INHALE ONE VIAL VIA NEBULIZER THREE TIMES A DAY NEEDED FOR WHEEZING, # 120 Each, 1 Refill(s), Pharmacy: [facility] #[id number], INHALE ONE VIAL VIA NEBULIZER THREE TIMES A DAY ASNEEDED FOR WHEEZING Start Date: 08/31/15 Status: OrderedLasix 40 mg oral tablet See Instructions, TAKE 1 TABLET BY MOUTH EVERY DAY, # 30 tabs, 2 Refill(s), eRx : [facility] #[id number], TAKE 1 TABLET BY MOUTH EVERY DAY [...] Refill( s), eRx: [facility] #[id number], TAKE 1 TABLET BY MOUTH EVERY DAY Start Date: 01/12/15 Status: OrderedPriLOSEC 20 mg oral delayed release capsule 20 mg 1 caps, Oral, BID, # 180 caps, 3 Refill(s), Pharmacy: [facility] # [id number], 1 caps Oral BID Start Date: 03/12/15 Status: OrderedProAir HFA 90 mcg/inh inhalation aerosol See Instructions, INHALE TWO PUFFS BY MOUTH EVERY 4 TO 6 HOURS NEEDED, # 8.5 g, 2 Refill(s), Pharmacy: [facility] #[id number] Start Date: 07/02/15 Status: OrderedValium 5 mg oral tablet 2.5 mg 0.5 tabs, Oral, Daily, as needed for anxiety, # 15 tabs, 0 Refill(s) Start Date: 10/25/15 Status: OrderedVentolin HFA 90 mcg/inh inhalation aerosol 1 puffs, Inhalation, QID, as needed for wheezing, # 8 g, 6 Refill(s), Pharmacy: [facility] #[id number], 1 puffs Inhalation QID,PRN:as needed for wheezing [...]
--- OUTSIDE RECORDS SUMMARY | 2017-07-19 17:24 | External Medical Summary | Referral Summary ---
:1939 Author Organization [facility] Address [address] [place] [address] [place] [address] Care Team Providers Name Role Phone Feli Santiago Primary Care Physician Encounter [facility] [id number] Date(s): 08/14/16 - 08/14/16 [facility] [place] [address] [place] Discharge Diagnosis: Chronic pain Discharge Diagnosis: Muscle spasm Discharge Diagnosis: Benign hypertension Discharge Diagnosis: COPD (chronic obstructive pulmonary disease) Discharge Disposition: 01-Home or Self Care Attending Physician: Feli Santiago DO Admitting Physician: Feli Santiago DO Vital Signs Most recent to oldest [Reference Range]: 1 Temperature Tympanic [36.6-38.1 degC] 36.9 degC (08/14/16 8:56 AM) Peripheral Pulse Rate [60-100 bpm] 71 bpm (08/14/16 8:56 AM) Respiratory Rate [14-20 br/min] 16 br/min (08/14/16 8:56 AM) Blood Pressure [90-140/60-90 mmHg] 130/62 mmHg (08/14/16 8:56 AM) SpO2 92 % (08/14/16 [...] # 30 tabs, 11 Refill(s) , Pharmacy: [facility] #[id number], 1 tabs Oral Daily,Instr:for blood pressures above 140 Start Date: 08/14/16 Status: Orderedaspirin 81 mg, Oral, Daily, 0 Refill(s) Start Date: 06/30/14 Status: OrderedBactroban 2% topical cream 1 donta, Topical, TID, # 30 g, 0 Refill(s), Pharmacy: [facility] #[id number] Start Date: 05/03/16 Status: OrderedBreo Ellipta 100 mcg-25 mcg/inh inhalation powder 1 puffs, Inhalation, Daily, SAMPLE GIVEN, # 30 Each, 0 Refill(s) Start Date: 05/15/16 Status: Orderedcitalopram 10 mg oral tablet 10 mg 1 tabs, Oral, Daily, # 30 tabs, 11 Refill(s), Pharmacy: [facility] # [id number], 1 tabs Oral Daily Start Date: 08/14/16 Status: OrderedColace 100 mg oral capsule 1 caps, Oral, BID, as needed for constipation, # 20 caps, 0 Refill(s) Start Date: 05/20/14 Status: OrderedDuoNeb 0.5 mg-2.5 mg/3 mL inhalation solution 3 mL, Inhalation, QID, # 30 Each, 2 Refill(s), Pharmacy: [facility] # [id number] Start Date: 07/24/16 Status: Orderedgabapentin 100 mg [...] # 30 tabs, 2 Refill(s), eRx : [facility] #[id number], TAKE 1 TABLET BY MOUTH EVERY DAY [...] tabs, 0 Refill(s) Start Date: 08/14/16 Status: Orderedpotassium chloride 10 mEq oral tablet, extended release See Instructions, TAKE 1 TABLET BY MOUTH EVERY DAY, # 30 unknown unit, 2 Refill( s), eRx: [facility] #[id number], TAKE 1 TABLET BY MOUTH EVERY DAY Start Date: 01/12/15 Status: OrderedPrevacid SoluTab 15 mg oral tablet, disintegrating 15 mg 1 tabs, Oral, BID, 0 Refill(s) Start Date: 06/19/16 Status: OrderedProAir HFA 90 mcg/inh inhalation aerosol See Instructions, INHALE TWO PUFFS BY MOUTH EVERY 4 TO 6 HOURS NEEDED, # 8.5 g, 2 Refill(s), Pharmacy: [facility] #[id number] Start Date: 07/02/15 Status: OrderedSpiriva 18 mcg, [...] months. Ordered: Office Visit Level 4 Est 92186 Chronic pain New controlled substance agreement signed today,patient should return to clinic in 3 months, continue current regimen. Ordered: Office Visit Level 4 Est 55881 COPD (chronic obstructive pulmonary disease) Advised patient that it was time to contact pulmonology and get in to see them. Continue oxygen, return to clinic with any signs or symptoms of COPD exacerbation. Ordered: Office Visit Level 4 Est 15098 Muscle spasm This is improving with tonic water, continue current plan. Ordered: Office Visit Level 4 Est 47667
--- OUTSIDE RECORDS SUMMARY | 2017-07-19 17:24 | External Medical Summary | Referral Summary ---
:1940 Author Organization [facility] Address [address] [place] [address] Care Team Providers Name Role Phone Feli Santiago Primary Care Physician Encounter VC Date(s): 03/22/15 - 03/22/15 [facility] [address] [place] [address]- [place] Discharge Diagnosis: Abnormal CT [...] QID, # 30 Each, 0 Refill(s), Pharmacy: [facility] # [id number] Start Date: 11/05/14 Status: Orderedgabapentin 100 mg oral capsule 200 mg 2 caps, Oral, BID, # 120 caps, 4 Refill(s) Start Date: 03/12/15 Status: Orderedipratropium 500 mcg/2.5 mL inhalation solution See Instructions, INHALE ONE VIAL VIA NEBULIZER THREE TIMES A DAY NEEDED FOR WHEEZING, # 120 Each, 1 Refill(s), Pharmacy: [facility] #[id number], INHALE ONE VIAL VIA NEBULIZER THREE TIMES A DAY ASNEEDED FOR WHEEZING Start Date: 08/31/15 Status: OrderedLasix 40 mg oral tablet See Instructions, TAKE 1 TABLET BY MOUTH EVERY DAY, # 30 tabs, 2 Refill(s), eRx : [facility] #[id number], TAKE 1 TABLET BY MOUTH EVERY DAY [...] 30 unknown unit, 2 Refill( s), eRx: [facility] #[id number], TAKE 1 TABLET BY MOUTH EVERY DAY Start Date: 01/12/15 Status: OrderedPriLOSEC 20 mg oral delayed release capsule 20 mg 1 caps, Oral, BID, # 180 caps, 3 Refill(s), Pharmacy: [facility] # [id number], 1 caps Oral BID Start Date: 03/12/15 Status: OrderedProAir HFA 90 mcg/inh inhalation aerosol See Instructions, INHALE TWO PUFFS BY MOUTH EVERY 4 TO 6 HOURS NEEDED, # 8.5 g, 2 Refill(s), Pharmacy: [facility] #[id number] Start Date: 07/02/15 Status: OrderedPromethazine VC with Codeine oral syrup See Instructions, as needed for cough, 5-10 mL Oral q4-6hr, # 240 mL, 0 Refill(s ) Start Date: 08/20/15 Status: Orderedpromethazine-dextromethorphan 6.25 mg-15 mg/5 mL oral syrup See Instructions, TAKE 5 ML BY MOUTH EVERY 6 HOURS NEEDED FOR COUGH, # 120 unknown unit, eRx: [facility] #[id number], TAKE 5 ML BY MOUTH EVERY 6 HOURS NEEDED FOR COUGH Start Date: 08/31/15 Status: OrderedTessalon Perles 100 mg oral capsule 100 mg 1 caps, Oral, TID, # 30 caps, 3 Refill(s), Pharmacy: [facility] # [id number], 1 caps Oral TID Start Date: 09/23/15 Status: OrderedValium 5 mg oral tablet 2.5 mg 0.5 tabs, Oral, Daily, as needed for anxiety, # 15 tabs, 0 Refill(s) Start Date: 03/12/15 Status: OrderedVentolin HFA 90 mcg/inh inhalation aerosol 1 puffs, Inhalation, QID, as needed for wheezing, # 8 g, 6 Refill(s), Pharmacy: [facility] #[id number], 1 puffs Inhalation QID,PRN:as needed for wheezing [...]
--- OUTSIDE RECORDS SUMMARY | 2017-07-19 17:24 | External Medical Summary | Referral Summary ---
:1939 Author Organization [facility] Address [address] [place] [address] [place] [address] Care Team Providers Name Role Phone Feli Santiago Primary Care Physician Encounter VC Date(s): 04/28/16 - 04/28/16 [facility] [place] [address]- [place] Discharge Disposition: 01-Home or Self Care Attending Physician: Eloy Singleton APRN Admitting Physician: Eloy Singleton APRN Vital Signs Most recent to oldest [Reference Range]: 1 Peripheral Pulse Rate [60-100 bpm] 64 bpm (04/28/16 8:19 AM) Respiratory Rate [14-20 br/min] 18 br/min (04/28/16 8:19 AM) Blood Pressure [90-140/60-90 mmHg] 124/68 mmHg (04/28/16 8:19 AM) SpO2 94 % (04/28/16 8:19 AM) Problem List Condition Effective Dates Status [...] EVERY OTHER DAY, # 30 tabs, eRx: [facility] #[id number], TAKE ONE TABLET BY MOUTH EVERY OTHER DAY Start Date: 04/24/16 Status: OrderedColace 100 mg oral capsule 1 caps, Oral, BID, as needed for constipation, # 20 caps, 0 Refill(s) Start Date: 05/20/14 Status: OrderedDuoNeb 0.5 mg-2.5 mg/3 mL inhalation solution 3 mL, Inhalation, QID, # 30 Each, 0 Refill(s), Pharmacy: [facility] # [id number] Start Date: 11/05/14 Status: Orderedgabapentin 100 mg oral capsule 200 mg 2 caps, Oral, BID, # 120 caps, 4 Refill(s) Start Date: 03/12/15 Status: Orderedipratropium 500 mcg/2.5 mL inhalation solution See Instructions, INHALE ONE VIAL VIA NEBULIZER THREE TIMES A DAY NEEDED FOR WHEEZING, # 120 Each, 1 Refill(s), Pharmacy: [facility] #[id number], INHALE ONE VIAL VIA NEBULIZER THREE TIMES A DAY ASNEEDED FOR WHEEZING Start Date: 08/31/15 Status: OrderedLasix 40 mg oral tablet See Instructions, TAKE 1 TABLET BY MOUTH EVERY DAY, # 30 tabs, 2 Refill(s), eRx : [facility] #[id number], TAKE 1 TABLET BY MOUTH EVERY DAY [...] s), eRx: [facility] #[id number], TAKE 1 TABLET BY MOUTH EVERY DAY Start Date: 01/12/15 Status: OrderedpredniSONE 10 mg oral tablet See Instructions, 5 tabs PO daily x3 days, 4 tabs PO daily x3 days, 3 tabs PO daily x3 days, 2 tabs PO daily x3 days, 1 tab PO daily x3 days, # 45 tabs, 0 Refill(s), Pharmacy: [facility] #[id number],5 tabs PO daily x3 days, 4 tabs PO daily x3 days,... Start Date: 04/28/16 Stop Date: 05/05/16 Status: OrderedPriLOSEC 20 mg oral delayed release capsule 20 mg 1 caps, Oral, BID, # 180 caps, 1 Refill(s), Pharmacy: [facility] # [id number], 1 caps Oral BID Start Date: 04/28/16 Status: OrderedProAir HFA 90 mcg/inh inhalation aerosol See Instructions, INHALE TWO PUFFS BY MOUTH EVERY 4 TO 6 HOURS NEEDED, # 8.5 g, 2 Refill(s), Pharmacy: [facility] #[id number] Start Date: 07/02/15 Status: OrderedValium 5 mg oral tablet 2.5 mg 0.5 tabs, Oral, Daily, as needed for anxiety, # 15 tabs, 0 Refill(s) Start Date: 10/25/15 Status: OrderedVentolin HFA 90 mcg/inh inhalation aerosol 1 puffs, Inhalation, QID, as needed for wheezing, # 8 g, 6 Refill(s), Pharmacy: [facility] #[id number], 1 puffs Inhalation QID,PRN:as needed for wheezing Start Date: 01/07/16 Status: Ordered Results Hematology Most recent to oldest [Reference Range]: 1 WBC [5.0-10.0 10*3/uL] 12.6 10*3/uL *HI* (04/28/16 9:18 AM) RBC [3.70-5.20] 4.33 (04/28/16 9:18 AM) Hgb [12.0-16.0 gm/dL] 13.1 gm/dL (04/28/16 9:18 AM) Hct [37.0-47.0 %] 40.4 % (04/28/16 9:18 AM) MCV [80.0-96.0 fL] 93.3 fL (04/28/16 9:18 AM) MCH [26.0-34.0 pg] 30.3 pg (04/28/16:18 AM) MCHC [32.0-36.0 gm/dL] 32.4 gm/dL (04/28/16:18 AM) RDW [0.0-14.5 %] 14.9 % *HI* (04/28/16:18 AM) Platelet [150-400 10*3/uL] 205 10*3/uL (04/28/16 9:18 AM) MPV [8.8-14.8 fL] 10.3 fL (04/28/16:18 AM) Neutrophils [50-70 %] 45 % *LOW* (04/28/16:18 AM) Lymphocytes [20-40 %] 44 % *HI* (04/28/16:18 AM) Abn Lymph Man [-1-0 %] 2 % *HI* (04/28/16:18 AM) Monocytes [4-8 %] 6 % (04/28/16 9:18 AM) Eosinophils [0-6 %] 3 % (04/28/16 9:18 AM) Basophils [0-2 %] 0 % (04/28/16:18 AM) Neutro Absolute [2.50-7.00 10*3] 5.67 10*3 (04/28/16 9:18 AM) Lymph Absolute [1.00-4.00 10*3] 5.80 10*3 *HI* (04/28/16 9:18 AM) Marinette Absolute [0.20-0.80 10*3] 0.76 10*3 (04/28/16 9:18 AM) Eos Absolute [0.00-0.60 10*3] 0.38 10*3 (04/28/16 9:18 AM) Baso Absolute [0.00-0.30] 0.00 (04/28/16 9:18 AM) Differential Manual *ABN* (04/28/16:18 AM) Chemistry Most recent to oldest [Reference Range]: 1 Sodium Venous [136-145 mmol/L] 139 mmol/L (04/28/16 9:18 AM) Potassium Venous [3.5-5.1 mmol/L] 4.2 mmol/L 1 (04/28/16 9:18 AM) Calcium Ionized Venous [1.10-1.30 mmol/L] 1.21 mmol/L (04/28/16 9:18 AM) Total CO2 Venous [24-29 mmol/L] 25 mmol/L (04/28/16 9:18 AM) Glucose Venous [70-100 mg/dL] 81 mg/dL (04/28/16 9:18 AM) BUN Venous [8-26] 23 (04/28/16 9:18 AM) Creatinine Venous [0.6-1.2 mg/dL] 1.0 mg/dL (04/28/16 9:18 AM) Venous CL [98-109 mmol/L] 103 mmol/L (04/28/16 9:18 AM) 1Result Comment: This test was performed on a whole blood specimen. The presence or absence of hemolysis cannot be assessed. Hemolysis can falsely elevate potassium levels. Normals are for venous specimens only. Immunizations Vaccine Date Refusal Reason influenza virus [...]
--- OUTSIDE RECORDS SUMMARY | 2017-07-19 17:24 | External Medical Summary | Referral Summary ---
:1939 Author Organization [facility] Address [address] [place] [address] Care Team Providers Name Role Phone Feli Santiago Primary Care Physician Encounter VC [facility] [id number] Date(s): 12/20/15 - 12/20/15 [facility] [address] [place] [address]- [place] Discharge Diagnosis: Abnormal chest CT Discharge Diagnosis: Multiple lung nodules Discharge Disposition: 01-Home or Self Care Attending Physician: Xander Ford MD Admitting Physician: Xander Ford MD Vital Signs Most recent to oldest [Reference Range]: 1 Peripheral Pulse Rate [60-100 bpm] 52 bpm *LOW* (12/20/15 10:37 AM) Respiratory Rate [14-20 br/min] 16 br/min (12/20/15 10:37 AM) Blood Pressure [90-140/60-90 mmHg] 120/70 mmHg (12/20/15 10:37 AM) SpO2 94 % (12/20/15 10:37 AM) Problem List Condition Effective Dates Status [...] Daily, 0 Refill(s) Start Date: 06/30/14 Status: Orderedazithromycin 250 mg oral tablet See Instructions, as directed on package labeling, # 6 tabs, 0 Refill(s), Pharmacy: [facility]#[id number], as directed on package labeling Start Date: 12/20/15 Stop Date: 12/28/15 Status: Orderedcitalopram 10 mg oral tablet See Instructions, TAKE ONE TABLET BY MOUTH DAILY, # 30 tabs, eRx: [facility] #[id number], TAKE ONETABLET BY MOUTH DAILY Start Date: 12/13/15 Status: OrderedColace 100 mg oral capsule 1 caps, Oral, BID, as needed for constipation, # 20 caps, 0 Refill(s) Start Date: 05/20/14 Status: OrderedDuoNeb 0.5 mg-2.5 mg/3 mL inhalation solution 3 mL, Inhalation, QID, # 30 Each, 0 Refill(s), Pharmacy: [facility] # [id number] Start Date: 11/05/14 Status: Orderedgabapentin 100 mg oral capsule 200 mg 2 caps, Oral, BID, # 120 caps, 4 Refill(s) Start Date: 03/12/15 Status: Orderedipratropium 500 mcg/2.5 mL inhalation solution See Instructions, INHALE ONE VIAL VIA NEBULIZER THREE TIMES A DAY NEEDED FOR WHEEZING, # 120 Each, 1 Refill(s), Pharmacy: [facility] #[id number], INHALE ONE VIAL VIA NEBULIZER THREE TIMES A DAY ASNEEDED FOR WHEEZING Start Date: 08/31/15 Status: OrderedLasix 40 mg oral tablet See Instructions, TAKE 1 TABLET BY MOUTH EVERY DAY, # 30 tabs, 2 Refill(s), eRx : [facility] #[id number], TAKE 1 TABLET BY MOUTH EVERY DAY [...] 30 unknown unit, 2 Refill( s), eRx: [facility] #[id number], TAKE 1 TABLET BY MOUTH EVERY DAY Start Date: 01/12/15 Status: OrderedpredniSONE 10 mg oral tablet See Instructions, Take 4 tabs daily for 4 days, then take 3 tabs on day 5, then take 2 tabs on day 6, then take 1 tab on day 7., # 22 tabs, 0 Refill(s), Pharmacy: [facility] #[id number], Take 4 tabs daily for 4 days, then take 3 tabs on day 5, then... Start Date: 12/20/15 Stop Date: 12/26/15 Status: OrderedPriLOSEC 20 mg oral delayed release capsule 20 mg 1 caps, Oral, BID, # 180 caps, 3 Refill(s), Pharmacy: [facility] # [id number], 1 caps Oral BID Start Date: 03/12/15 Status: OrderedProAir HFA 90 mcg/inh inhalation aerosol See Instructions, INHALE TWO PUFFS BY MOUTH EVERY 4 TO 6 HOURS NEEDED, # 8.5 g, 2 Refill(s), Pharmacy: [facility] #[id number] Start Date: 07/02/15 Status: Orderedpromethazine-dextromethorphan 6.25 mg-15 mg/5 mL oral syrup See Instructions, TAKE 5 ML BY MOUTH EVERY 6 HOURS NEEDED FOR COUGH, # 120 unknown unit, eRx: [facility] #[id number], TAKE 5 ML BY MOUTH EVERY 6 HOURS NEEDED FOR COUGH Start Date: 08/31/15 Status: OrderedTessalon Perles 100 mg oral capsule 100 mg 1 caps, Oral, TID, # 30 caps, 3 Refill(s), Pharmacy: [facility] # [id number], 1 caps Oral TID Start Date: 09/23/15 Status: OrderedValium 5 mg oral tablet 2.5 mg 0.5 tabs, Oral, Daily, as needed for anxiety, # 15 tabs, 0 Refill(s) Start Date: 10/25/15 Status: OrderedVentolin HFA 90 mcg/inh inhalation aerosol 1 puffs, Inhalation, QID, as needed for wheezing, # 8 g, 6 Refill(s), Pharmacy: [facility] #[id number], 1 puffs Inhalation QID,PRN:as needed for wheezing [...]
--- OUTSIDE RECORDS SUMMARY | 2017-07-19 17:24 | External Medical Summary | Referral Summary ---
:1939 Author Organization [facility] Address [address] [place] [address] [place] [address] Care Team Providers Name Role Phone Feli Santiago Primary Care Physician Encounter VC Date(s): 09/23/15 - 09/23/15 [facility] [place] [address]- [place] Discharge Diagnosis: COPD (chronic obstructive pulmonary disease) Discharge Diagnosis: Chronic pain Discharge Disposition: 01-Home or Self Care Attending Physician: Feli Santiago DO Admitting Physician: Feli Santiago DO Vital Signs Most recent to oldest [Reference Range]: 1 Temperature Tympanic [36.6-38.1 degC] 36.9 degC (09/23/15 9:33 AM) Peripheral Pulse Rate [60-100 bpm] 76 bpm (09/23/15 9:33 AM) Respiratory Rate [14-20 br/min] 17 br/min (09/23/15 9:33 AM) Blood Pressure [90-140/60-90 mmHg] 120/80 mmHg (09/23/15 9:33 AM) SpO2 98 % (09/23/15 9:33 AM) Problem List Condition Effective Dates Status [...] QID, # 30 Each, 0 Refill(s), Pharmacy: [facility] # [id number] Start Date: 11/05/14 Status: Orderedgabapentin 100 mg oral capsule 200 mg 2 caps, Oral, BID, # 120 caps, 4 Refill(s) Start Date: 03/12/15 Status: Orderedipratropium 500 mcg/2.5 mL inhalation solution See Instructions, INHALE ONE VIAL VIA NEBULIZER THREE TIMES A DAY NEEDED FOR WHEEZING, # 120 Each, 1 Refill(s), Pharmacy: [facility] #[id number], INHALE ONE VIAL VIA NEBULIZER THREE TIMES A DAY ASNEEDED FOR WHEEZING Start Date: 08/31/15 Status: OrderedLasix 40 mg oral tablet See Instructions, TAKE 1 TABLET BY MOUTH EVERY DAY, # 30 tabs, 2 Refill(s), eRx : [facility] #[id number], TAKE 1 TABLET BY MOUTH EVERY DAY [...] 30 unknown unit, 2 Refill( s), eRx: [facility] #[id number], TAKE 1 TABLET BY MOUTH EVERY DAY Start Date: 01/12/15 Status: OrderedPriLOSEC 20 mg oral delayed release capsule 20 mg 1 caps, Oral, BID, # 180 caps, 3 Refill(s), Pharmacy: [facility] # [id number], 1 caps Oral BID Start Date: 03/12/15 Status: OrderedProAir HFA 90 mcg/inh inhalation aerosol See Instructions, INHALE TWO PUFFS BY MOUTH EVERY 4 TO 6 HOURS NEEDED, # 8.5 g, 2 Refill(s), Pharmacy: [facility] #[id number] Start Date: 07/02/15 Status: OrderedPromethazine VC with Codeine oral syrup See Instructions, as needed for cough, 5-10 mL Oral q4-6hr, # 240 mL, 0 Refill(s ) Start Date: 08/20/15 Status: Orderedpromethazine-dextromethorphan 6.25 mg-15 mg/5 mL oral syrup See Instructions, TAKE 5 ML BY MOUTH EVERY 6 HOURS NEEDED FOR COUGH, # 120 unknown unit, eRx: [facility] #[id number], TAKE 5 ML BY MOUTH EVERY 6 HOURS NEEDED FOR COUGH Start Date: 08/31/15 Status: OrderedTessalon Perles 100 mg oral capsule 100 mg 1 caps, Oral, TID, # 30 caps, 3 Refill(s), Pharmacy: [facility] # [id number], 1 caps Oral TID Start Date: 09/23/15 Status: OrderedValium 5 mg oral tablet 2.5 mg 0.5 tabs, Oral, Daily, as needed for anxiety, # 15 tabs, 0 Refill(s) Start Date: 03/12/15 Status: OrderedVentolin HFA 90 mcg/inh inhalation aerosol 1 puffs, Inhalation, QID, as needed for wheezing, # 8 g, 6 Refill(s), Pharmacy: [facility] #[id number], 1 puffs Inhalation QID,PRN:as needed for wheezing [...] Visit Note Author: Feli Santiago DO Date: 09/23/15 Assessment/Plan Chronic pain Controlled substance agreement signed today. Return to clinic in 3 months. Ordered: Office Visit Level 4 Est 40365 COPD (chronic obstructive pulmonary disease) Due to patient's increased nebulizer use will start patient on Breo Ellipta 100/25. 6 boxes with 14 day sample inhalers were given to patient and she was instructed on their use. We'll reevaluate effectiveness at visit in 3 months. Patient was also given a when necessary Rx for Tessalon Perles. Ordered: Office Visit Level 4 Est 81283 Orders: albuterol, 1 puffs, Inhalation, QID, as needed for wheezing, # 8 g, 6 Refill(s), Pharmacy: [facility] #[id number], 1 puffs Inhalation QID,PRN:as needed for wheezing benzonatate, 100 mg 1 caps, Oral, TID, # 30 caps, 3 Refill(s), Pharmacy: [facility] #[id number], 1 caps Oral TID
--- OUTSIDE RECORDS SUMMARY | 2017-07-19 17:24 | External Medical Summary | Referral Summary ---
:1940 Author Organization [facility] Address [address] [place] [address] [place] [id number] Care Team Providers Name Role Phone Feli Santiago Primary Care Physician Encounter [facility] Date(s): 06/16/15 - 06/16/15 [facility] [address] [place] [phone] [place] Discharge Diagnosis: Chronic pain Discharge Diagnosis: COPD with acute exacerbation Discharge Disposition: 01-Home or Self Care Attending Physician: Feli Santiago DO Admitting Physician: Feli Santiago DO Vital Signs Most recent to oldest [Reference Range]: 1 Temperature Tympanic [36.6-38.1 degC] 36.9 degC (06/16/15 8:48 AM) Peripheral Pulse Rate [60-100 bpm] 82 bpm (06/16/15 8:48 AM) Respiratory Rate [14-20 br/min] 16 br/min (06/16/15 8:48 AM) Blood Pressure [90-140/60-90 mmHg] 130/70 mmHg (06/16/15 8:48 AM) SpO2 96 % (06/16/15 8:48 AM) Problem List Condition Effective Dates Status [...] labeling, # 6 tabs, 0 Refill(s), Pharmacy: [facility]#[id number], as directed on package labeling Start Date: 12/20/15 Stop Date: 12/28/15 Status: Orderedcitalopram 10 mg oral tablet See Instructions, TAKE ONE TABLET BY MOUTH DAILY, # 30 tabs, eRx: [facility] #[id number], TAKE ONETABLET BY MOUTH DAILY Start Date: 12/13/15 Status: OrderedColace 100 mg oral capsule 1 caps, Oral, BID, as needed for constipation, # 20 caps, 0 Refill(s) Start Date: 05/20/14 Status: OrderedDuoNeb 0.5 mg-2.5 mg/3 mL inhalation solution 3 mL, Inhalation, QID, # 30 Each, 0 Refill(s), Pharmacy: [facility] # [id number] Start Date: 11/05/14 Status: Orderedgabapentin 100 mg oral capsule 200 mg 2 caps, Oral, BID, # 120 caps, 4 Refill(s) Start Date: 03/12/15 Status: Orderedipratropium 500 mcg/2.5 mL inhalation solution See Instructions, INHALE ONE VIAL VIA NEBULIZER THREE TIMES A DAY NEEDED FOR WHEEZING, # 120 Each, 1 Refill(s), Pharmacy: [facility] #[id number], INHALE ONE VIAL VIA NEBULIZER THREE TIMES A DAY ASNEEDED FOR WHEEZING Start Date: 08/31/15 Status: OrderedLasix 40 mg oral tablet See Instructions, TAKE 1 TABLET BY MOUTH EVERY DAY, # 30 tabs, 2 Refill(s), eRx : [facility] #[id number], TAKE 1 TABLET BY MOUTH EVERY DAY [...] unknown unit, 2 Refill( s), eRx: [facility] #[id number], TAKE 1 TABLET BY MOUTH EVERY DAY Start Date: 01/12/15 Status: OrderedPriLOSEC 20 mg oral delayed release capsule 20 mg 1 caps, Oral, BID, # 180 caps, 3 Refill(s), Pharmacy: [facility] # [id number], 1 caps Oral BID Start Date: 03/12/15 Status: OrderedProAir HFA 90 mcg/inh inhalation aerosol See Instructions, INHALE TWO PUFFS BY MOUTH EVERY 4 TO 6 HOURS NEEDED, # 8.5 g, 2 Refill(s), Pharmacy: [facility] #[id number] Start Date: 07/02/15 Status: Orderedpromethazine-dextromethorphan 6.25 mg-15 mg/5 mL oral syrup See Instructions, TAKE 5 ML BY MOUTH EVERY 6 HOURS NEEDED FOR COUGH, # 120 unknown unit, eRx: [facility] #[id number], TAKE 5 ML BY MOUTH EVERY 6 HOURS NEEDED FOR COUGH Start Date: 08/31/15 Status: OrderedTessalon Perles 100 mg oral capsule 100 mg 1 caps, Oral, TID, # 30 caps, 3 Refill(s), Pharmacy: [facility] # [id number], 1 caps Oral TID Start Date: 09/23/15 Status: OrderedValium 5 mg oral tablet 2.5 mg 0.5 tabs, Oral, Daily, as needed for anxiety, # 15 tabs, 0 Refill(s) Start Date: 10/25/15 Status: OrderedVentolin HFA 90 mcg/inh inhalation aerosol 1 puffs, Inhalation, QID, as needed for wheezing, # 8 g, 6 Refill(s), Pharmacy: [facility] #[id number], 1 puffs Inhalation QID,PRN:as needed for wheezing [...] Extracted from: Title: Ambulatory Patient Education Author: Feli Santiago DO Date: 06/16/15 [facility] Chronic Obstructive Pulmonary Disease Exacerbation Chronic obstructive pulmonary disease (COPD) is a common lung condition in which airflow from the lungs is limited. COPD is a general term that can be used to describe many different lung problems that limit airflow, including chronic bronchitis and emphysema. COPD exacerbations are episodes when breathing symptoms become much worse and require extra treatment. Without treatment, COPD exacerbations ca n be life threatening, and frequent COPD exacerbations can cause further damage to your lungs. CAUSES Respiratory infections. Exposure to smoke. Exposure to air pollution, chemical fumes, or dust. Sometimes there is no apparent cause or trigger. RISK FACTORS Smoking cigarettes. Older age. Frequent prior COPD exacerbations. SIGNS AND SYMPTOMS Increased coughing. Increased thick spit (sputum) production. Increased wheezing. Increased shortness of breath. Rapid breathing. Chest tightness. DIAGNOSIS Your medical history, a physical exam, and tests will help your health care provider make a diagnosis. Tests may include: A chest X-ray. Basic lab tests. Sputum testing. An arterial blood gas test. TREATMENT Depending on the severity of your COPD exacerbation, you may need to be admitted to a hospital for treatment. Some of the treatments commonly used to treat COPD exacerbations are: Antibiotic medicines. Bronchodilators. These are drugs that expand the air passages. They may be given with an inhaler or nebulizer. Spacer devices may be needed to help improve drug delivery. Corticosteroid medicines. Supplemental oxygen therapy. HOME CARE INSTRUCTIONS Do not smoke. Quitting smoking is very important to prevent COPD from getting worse and exacerbations from happening as often. Avoid exposure to all substances that irritate the airway, especially to tobacco smoke. If you were prescribed an antibiotic medicine, finish it all even if you start to feel better. Take all medicines as directed by your health care provider.It is important to use correct technique with inhaled medicines. Drink enough fluids to keep your urine clear or pale yellow (unless you have a medical condition that requires fluid restriction). Use a cool mist vaporizer. This makes it easier to clear your chest when you cough. If you have a home nebulizer and oxygen, continue to use them as directed. Maintain all necessary vaccinations to prevent infections. Exercise regularly. Eat a healthy diet. Keep all follow-up appointments as directed by your health care provider. SEEK IMMEDIATE MEDICAL CARE IF: You have worsening shortness of breath. You have trouble talking. You have severe chest pain. You have blood in your sputum. You have a fever. You have weakness, vomit repeatedly, or faint. You feel confused. You continue to get worse. MAKE SURE YOU: Understand these instructions. Will watch your condition. Will get help right away if you are not doing well or get worse. Document Released: 07/14/2008 Document Revised: 02/01/2015 Document Reviewed: 05/22/2014 [facility] Patient Information 2015 [employer]. This information is not intended to replace advice given to you by your health care provider. Make sure you discuss any questions you have with your health care provider. No follow up information was provided. Extracted from: Title: Office Visit Note Author: Feli Santiago DO Date: 06/16/15 Assessment/Plan Chronic pain continue current regimen, return to clinic in 3 mo. Ordered: Office Visit Level 4 Est 23481 COPD with acute exacerbation will try augmentin, patient advised to use caution with cough syrup and chronic norco, patient will call if not improved at the end of the antibiotic or with worsening symptoms. She should continue her nebulizer. Ordered: Office Visit Level 4 Est [id number] Orders: amoxicillin-clavulanate, 1 tabs, Oral, q12hr, X 14 days, # 28 tabs, 0 Refill(s), Pharmacy: [facility] #[id number] promethazine/phenylephrine/codeine, 5 mL, Oral, q4hr, as needed for cough, # 240 mL, 0 Refill(s)
--- OUTSIDE RECORDS SUMMARY | 2017-07-19 17:24 | External Medical Summary | Referral Summary ---
:1939 Author Care Team Providers Name Role Phone Donna Donovan Primary Care Physician Encounter [facility] [id number] Date(s): 01/25/15 - 01/25/15 [facility] Tenorio, [place], Family [address] [place] [address] Discharge Diagnosis: OA (osteoarthritis) of knee Discharge Diagnosis: Asthma Discharge Diagnosis: Pre-operative laboratory examination Discharge Diagnosis: Pre-operative respiratory examination Discharge Disposition: Home or Self Care Attending Physician: Donna Donovan MD Admitting Physician: Donna Donovan MD Vital Signs Most recent to oldest [Reference Range]: 1 Temperature Tympanic [36.6-38.1 degC] 36.9 degC (01/25/15 8:28 AM) Peripheral Pulse Rate [60-100 bpm] 68 bpm (01/25/15 8:28 AM) Blood Pressure [90-140/60-90 mmHg] 130/70 mmHg (01/25/15 8:28 AM) Problem List Condition Effective Dates Status Health Status Informant Asthma(Confirmed) Active Gout(Confirmed) Active Osteoarthritis(Confirmed) Active Tobacco user(Confirmed) Active patient Allergies, [...] caps, 0 Refill(s) Start Date: 05/20/14 Status: OrderedDeep Sea Nasal [place] 2 sprays, Nasal, QID, 0 Refill(s) Start Date: 05/20/14 Status: OrderedDuoNeb 0.5 mg-2.5 mg/3 mL inhalation solution 3 mL, Inhalation, QID, # 30 Each, 0 Refill(s), Pharmacy: [facility] # [id number] Start Date: 11/05/14 Status: Orderedgabapentin 300 mg oral capsule 1 caps, Oral, Bedtime (once a day) Start Date: 03/05/14 Status: OrderedLasix 40 mg oral tablet See Instructions, TAKE 1 TABLET BY MOUTH EVERY DAY, # 30 tabs, 2 Refill(s), eRx : [facility] #[id number], TAKE 1 TABLET BY MOUTH EVERY DAY Special Instructions: TAKE 1 TABLET BY MOUTH EVERY DAY Start Date: 01/12/15 Status: OrderedLORazepam 0.5 mg oral tablet 1 tabs, Oral, TID, as needed for anxiety, # 30 tabs, 0 Refill(s) Start Date: 06/02/14 Status: Orderedmeloxicam 15 mg oral tablet See Instructions, TAKE ONE TABLET BY MOUTH EVERY DAY WITH FOOD, # 90 tabs, 1 Refill(s), eRx: [facility] #[id number], TAKE ONE TABLET BY MOUTH EVERY DAY WITH FOOD Special Instructions: TAKE ONE TABLET BY MOUTH EVERY DAY WITH FOOD Start Date: 12/03/14 Status: OrderedMiraLax oral powder for reconstitution 17 g, Oral, Daily, as needed., 0 Refill(s) Special Instructions: as needed. Start Date: 05/20/14 Status: OrderedMucinex DM 30 mg-600 mg oral tablet, extended release 1 tabs, Oral, q12hr, as needed., 0 Refill(s) Special Instructions: as needed. Start Date: 05/20/14 Status: Orderedmultivitamin Daily, 0 Refill(s) Start Date: 11/17/14 Status: OrderedNorco 5 mg-325 mg oral tablet 1-2 tabs, Oral, q4hr, as needed for pain, # 90 tabs, 0 Refill(s) Start Date: 01/25/15 Status: Orderedomeprazole 20 mg oral delayed release capsule 1 caps, Oral, BID, # 90 caps, 0 Refill(s), Pharmacy: [facility] #[id number], 1 caps Oral BID Start Date: 06/02/14 Status: Orderedpotassium chloride 10 mEq oral tablet, extended release See Instructions, TAKE 1 TABLET BY MOUTH EVERY DAY, # 30 unknown unit, 2 Refill( s), eRx: [facility] #[id number], TAKE 1 TABLET BY MOUTH EVERY DAY Special Instructions: TAKE 1 TABLET BY MOUTH EVERY DAY Start Date: 01/12/15 Status: OrderedProAir HFA 90 mcg/inh inhalation aerosol See Instructions, INHALE TWO PUFFS BY MOUTH EVERY 4 TO 6 HOURS NEEDED, # 8.5 unknown unit, 1 Refill(s), eRx: [facility] #[id number], INHALE TWO PUFFS BY MOUTH EVERY 4 TO 6 HOURS NEEDED Special Instructions: INHALE TWO PUFFS BY MOUTH EVERY 4 TO 6 HOURS NEEDED Start Date: 04/13/14 Status: OrderedTussionex [employer] 10 mg-8 mg/5 mL oral suspension, extended release 5 mL, Oral, q12hr, as needed for cough, # 120 mL, 0 Refill(s) Start Date: 06/02/14 Status: OrderedTussionex [employer] 10 mg-8 mg/5 mL oral suspension, extended release 5 mL, Oral, q12hr, as needed for cough, # 120 mL, 0 Refill(s) Start Date: 11/05/14 Status: OrderedTussionex [employer] 10 mg-8 mg/5 mL oral suspension, extended release 5 mL, Oral, q12hr, as needed for cough, [place], # 120 mL, 0 Refill(s) Special Instructions: Alexis Phillip Start Date: 11/05/14 Status: OrderedValium 5 mg oral tablet 0.5 tabs, Oral, Daily, as needed for anxiety, # 15 tabs, 0 Refill(s) Start Date: 10/02/14 Status: Ordered Results Hematology Most recent to oldest [Reference Range]: 1 WBC [4.8-10.8 K/uL] 5.7 K/uL (01/25/15 9:13 AM) RBC [4.00-5.20 M/uL] 4.40 M/uL (01/25/15 9:13 AM) Hgb [12.0-16.0 gm/dL] 12.5 gm/dL (01/25/15 9:13 AM) Hct [37.0-47.0 %] 38.5 % (01/25/15:13 AM) MCV [82.0-99.0 fL] 87.5 fL (01/25/15: AM) MCH [27.0-32.0 pg] 28.4 pg (01/25/15 AM) MCHC [32.0-36.0 gm/dL] 32.5 gm/dL (01/25/15 AM) RDW [11.5-14.5 %] 15.0 % *HI* (01/25/15 AM) Platelet [150-400 K/uL] 263 K/uL (01/25/15: AM) MPV [8.8-14.8 fL] 11.2 fL (01/25/15 AM) Immature Granulocytes [0.0-1.0 %] 0.5 % (01/25/15 AM) Neutrophils [51-75 %] 46 % *LOW* (01/25/15 AM) Lymphocytes [20-46 %] 38 % (01/25/15: AM) Monocytes [4-11 %] 12 % *HI* (01/25/15 AM) Eosinophils [0-4 %] 4 % (01/25/15: AM) Basophils [0-2 %] 0 % (01/25/15 AM) Neutro Absolute [1.90-7.00 THOUS] 2.61 THOUS (01/25/15: AM) Lymph Absolute [0.80-3.30 THOUS] 2.17 THOUS (01/25/15: AM) Pershing Absolute [0.30-1.00 THOUS] 0.68 THOUS (01/25/15:13 AM) Eos Absolute [0.00-0.50 THOUS] 0.24 THOUS (01/25/15:13 AM) Baso Absolute [0.00-0.20 THOUS] 0.01 THOUS (01/25/15: AM) Chemistry Most recent to oldest [Reference Range]: 1 Sodium Lvl [135-144 mEq/L] 143 mEq/L (01/25/15: AM) Potassium Lvl [3.5-5.2 mEq/L] 4.8 mEq/L (01/25/15 9:13 AM) Chloride [99-111 mEq/L] 112 mEq/L *HI* (01/25/15 9:13 AM) CO2 [22-31 mEq/L] 21 mEq/L *LOW* (01/25/15 9:13 AM) AGAP [3-20] 10 (01/25/15 9:13 AM) BUN [10-20 mg/dL] 26 mg/dL *HI* (01/25/15 9:13 AM) Glucose Lvl [70-99 mg/dL] 92 mg/dL (01/25/15 9:13 AM) Creatinine Lvl [0.57-1.11 mg/dL] 1.03 mg/dL (01/25/15 9:13 AM) eGFR [>60 mL/min] 52 mL/min 1 *ABN* (01/25/15 9:13 AM) Calcium Lvl [8.9-10.5 mg/dL] 9.8 mg/dL (01/25/15 9:13 AM) 1Result Comment: Multiply eGFR results by 1.21 for race. Immunizations Vaccine Date Refusal Reason influenza virus vaccine, live 06/25/13 influenza virus vaccine, live 07/15/12 pneumococcal 13-valent conjugate vaccine 08/14/13 tetanus-diphth toxoids (Td) adult/adol 03/27/08 [...] Patient Education Author: Donna Donovan MD Date: 01/25/15 Dentistry General Anesthesia, Adult General anesthesia is a sleep-like state of non-feeling produced by medicines ( anesthetics ). General anesthesia prevents you from being alert and feeling pain during a medical procedure. Your caregiver may recommend general anesthesia if your procedure: Is long. Is painful or uncomfortable. Would be frightening to see or hear. Requires you to be still. Affects your breathing. Causes significant blood loss. LET YOUR CAREGIVER KNOW ABOUT: Allergies to food or medicine. Medicines taken, including vitamins, herbs, eyedrops, [id number] medicines, and creams. Use of steroids (by mouth or creams). Previous problems with anesthetics or numbing medicines, including problems experienced by relatives. History of bleeding problems or blood clots. Previous surgeries and types of anesthetics received. Possibility of , if this applies. Use of cigarettes, alcohol, or illegal drugs. Any health condition(s), especially diabetes, sleep apnea, and high blood pressure. RISKS AND COMPLICATIONS General anesthesia rarely causes complications. However, if complications do occur, they can be life-threatening. Complications include: A lung infection. A stroke. A heart attack. Waking up during the procedure. When this occurs, the patient may be unable to move and communicate that he or she is awake. The patient may feel severe pain. Older adults and adults with serious medical problems are more likely to have complications than adults who are young and healthy. Some complications can be prevented by answering all of your caregiver' s questions thoroughly and by following all pre-procedure instructions. It is important to tell your caregiver if any of the pre-procedure instructions, especially those related to diet, were not follow ed. Any food or liquid in the stomach can cause problems when you are under general anesthesia. BEFORE THE PROCEDURE Ask your caregiver if you will have to spend the night at the hospital. If you will not have to spend the night, arrange to have an adult drive you and stay with you for 24-hours. Follow your caregiver's instructions if you are taking dietary supplements or medicines. Your caregiver may tell you to stop taking them or to reduce your dosage. Do not smoke for as long as possible before your procedure. If possible, stop smoking 36 weeks before the procedure. Do not take new dietary supplements or medicines within 1 week of your procedure unless your caregiver approves them. Do not eat within 8 hours of your procedure or as directed by your caregiver. Drink only clear liquids, such as water, black coffee (without milk or cream), and fruit juices (without pulp). Do not drink within 3 hours of your procedure or as directed by your caregiver. You may brush your teeth on the morning of the procedure, but make sure to spit out the toothpaste and water when finished. PROCEDURE You will receive anesthetics through a mask, through an intravenous (IV) access tube, or through both. A doctor who specializes in anesthesia ( anesthesiologist ) or a nurse who specializes in anesthesia (nurse newspaper editor ) or both will stay with you throughout the procedure to make sure you remain unconscious. He or she will also watch your blood pressure , pulse, and oxygen levels to make sure that t he anesthetics do not cause any problems. Once you are asleep, a breathing tube or mask may be used to help you breathe. AFTER THE PROCEDURE You will wake up after the procedure is complete. You may be in the room where the procedure was performed or in a recovery area. You may have a sore throat if a breathing tube was used. You may also feel: Dizzy. Weak. Drowsy. Confused. Nauseous. Cold. These are all normal responses and can be expected to last for up to 24 hours after the procedure is complete. A caregiver will tell you when you are ready to go home. This will usually be when you are fully awake and in stable condition. Document Released: 12/24/2008 Document Revised: 09/03/2013 Document Reviewed: 01/15/2013 [facility] Patient Information 2014 [email or web address]. No follow up information was provided. Extracted from: Title: Office Visit Note Author: Donna Donovan MD Date: 01/25/15 Assessment/Plan Asthma OA (osteoarthritis) of knee Pre-operative laboratory examination Please note Dr. Ford's recommendations to ambulate early, minimize narcs, use incentive spirometry, breathing treatments. Ordered: Basic Metabolic Panel CBC w/ Differential Pre-operative respiratory examination Orders: HYDROcodone-acetaminophen, 1-2 tabs, Oral, q4hr, as needed for pain, # 90 tabs, 0 Refill(s)
--- OUTSIDE RECORDS SUMMARY | 2017-07-19 17:24 | External Medical Summary | Referral Summary ---
:1940 Author Organization [facility] Address [address] [place] [address] [place] [address] Care Team Providers Name Role Phone eFli Santiago Primary Care Physician Encounter VC Date(s): 10/07/15 - 10/07/15 [facility] [address] [place] [address] [place] Discharge Diagnosis: Cough Discharge Diagnosis: COPD with acute exacerbation Discharge Disposition: 01-Home or Self Care Attending Physician: Leona Castro APRN Admitting Physician: Leona Castro APRN Referring Physician: Feli Santiago DO Vital Signs Most recent to oldest [Reference Range]: 1 Temperature Tympanic [36.6-38.1 degC] 37.2 degC (10/07/15 1:33 PM) Peripheral Pulse Rate [60-100 bpm] 95 bpm (10/07/15 1:33 PM) Blood Pressure [90-140/60-90 mmHg] 138/64 mmHg (10/07/15 1:33 PM) SpO2 91 % (10/07/15 1:33 PM) Problem List Condition Effective Dates Status [...] QID, # 30 Each, 0 Refill(s), Pharmacy: [facility] # [id number] Start Date: 11/05/14 Status: Orderedgabapentin 100 mg oral capsule 200 mg 2 caps, Oral, BID, # 120 caps, 4 Refill(s) Start Date: 03/12/15 Status: Orderedipratropium 500 mcg/2.5 mL inhalation solution See Instructions, INHALE ONE VIAL VIA NEBULIZER THREE TIMES A DAY NEEDED FOR WHEEZING, # 120 Each, 1 Refill(s), Pharmacy: [facility] #[id number], INHALE ONE VIAL VIA NEBULIZER THREE TIMES A DAY ASNEEDED FOR WHEEZING Start Date: 08/31/15 Status: OrderedLasix 40 mg oral tablet See Instructions, TAKE 1 TABLET BY MOUTH EVERY DAY, # 30 tabs, 2 Refill(s), eRx : [facility] #[id number], TAKE 1 TABLET BY MOUTH EVERY DAY Start Date: 01/12/15 Status: OrderedLevaquin 750 mg oral tablet 750 mg 1 tabs, Oral, q24hr, X 10 days, # 10 tabs, 0 Refill(s), Pharmacy: [facility] #[id number], 1tabs Oral q24hr,x10 days Start Date: 10/07/15 Stop Date: 10/17/15 Status: OrderedMucinex DM 30 mg-600 mg oral [...] 30 unknown unit, 2 Refill( s), eRx: [facility] #[id number], TAKE 1 TABLET BY MOUTH EVERY DAY Start Date: 01/12/15 Status: OrderedpredniSONE 10 mg oral tablet See Instructions, 60mg PO QD x 3 days, 50mg PO QD x 3 days, 40mg PO QD x 3 days , 30mg PO QD x 3 days, 20mg PO QD x 3 days, 10mg PO QD x 3 days, # 63 tabs, 0 Refill(s), Pharmacy: [facility] #[id number], 60mg PO QD x 3 days, 50mg PO QD x 3 days, 40mg... Start Date: 10/07/15 Status: OrderedPriLOSEC 20 mg oral delayed release capsule 20 mg 1 caps, Oral, BID, # 180 caps, 3 Refill(s), Pharmacy: [facility] # [id number], 1 caps Oral BID Start Date: 03/12/15 Status: OrderedProAir HFA 90 mcg/inh inhalation aerosol See Instructions, INHALE TWO PUFFS BY MOUTH EVERY 4 TO 6 HOURS NEEDED, # 8.5 g, 2 Refill(s), Pharmacy: [facility] #[id number] Start Date: 07/02/15 Status: OrderedPromethazine VC with Codeine oral syrup See Instructions, as needed for cough, 5-10 mL Oral q4-6hr, # 240 mL, 0 Refill(s ) Start Date: 08/20/15 Status: Orderedpromethazine-dextromethorphan 6.25 mg-15 mg/5 mL oral syrup See Instructions, TAKE 5 ML BY MOUTH EVERY 6 HOURS NEEDED FOR COUGH, # 120 unknown unit, eRx: [facility] #[id number], TAKE 5 ML BY MOUTH EVERY 6 HOURS NEEDED FOR COUGH Start Date: 08/31/15 Status: OrderedTessalon Perles 100 mg oral capsule 100 mg 1 caps, Oral, TID, # 30 caps, 3 Refill(s), Pharmacy: [facility] # [id number], 1 caps Oral TID Start Date: 09/23/15 Status: OrderedValium 5 mg oral tablet 2.5 mg 0.5 tabs, Oral, Daily, as needed for anxiety, # 15 tabs, 0 Refill(s) Start Date: 03/12/15 Status: OrderedVentolin HFA 90 mcg/inh inhalation aerosol 1 puffs, Inhalation, QID, as needed for wheezing, # 8 g, 6 Refill(s), Pharmacy: [facility] #[id number], 1 puffs Inhalation QID,PRN:as needed for wheezing Start Date: 09/23/15 Status: Ordered Results Hematology Most recent to oldest [Reference Range]: 1 WBC [5.0-10.0 10*3/uL] 18.3 10*3/uL *HI* (10/07/15 1:58 PM) RBC [3.70-5.20] 4.02 (10/07/15 1:58 PM) Hgb [12.0-16.0 gm/dL] 11.8 gm/dL *LOW* (10/07/15 1:58 PM) Hct [37.0-47.0 %] 36.5 % *LOW* (10/07/15 1:58 PM) MCV [80.0-96.0 fL] 90.8 fL (10/07/15 1:58 PM) MCH [26.0-34.0 pg] 29.4 pg (10/07/15 1:58 PM) MCHC [32.0-36.0 gm/dL] 32.3 gm/dL (10/07/15 1:58 PM) RDW [0.0-14.5 %] 14.9 % *HI* (10/07/15 1:58 PM) Platelet [150-400 10*3/uL] 241 10*3/uL (10/07/15 1:58 PM) MPV [8.8-14.8 fL] 10.5 fL (10/07/15 1:58 PM) Neutrophils [50-70 %] 83 % *HI* (10/07/15 1:58 PM) Lymphocytes [20-40 %] 10 % *LOW* (10/07/15 1:58 PM) Monocytes [4-8 %] 6 % (10/07/15 1:58 PM) Eosinophils [0-6 %] 1 % (10/07/15 1:58 PM) Basophils [0-2 %] 0 % (10/07/15 1:58 PM) Neutro Absolute [2.50-7.00 10*3] 15.18 10*3 *HI* (10/07/15 1:58 PM) Lymph Absolute [1.00-4.00 10*3] 1.87 10*3 (10/07/15 1:58 PM) Bourbon Absolute [0.20-0.80 10*3] 1.00 10*3 *HI* (10/07/15 1:58 PM) Eos Absolute [0.00-0.60 10*3] 0.22 10*3 (10/07/15 1:58 PM) Baso Absolute [0.00-0.30] 0.03 (10/07/15 1:58 PM) Immunizations Vaccine Date Refusal Reason influenza [...]
--- OUTSIDE RECORDS SUMMARY | 2017-07-19 17:25 | External Medical Summary | Referral Summary ---
:1939 Author Organization [facility] Address [address] [place] [address] [place] [address] Care Team Providers Name Role Phone Feli Santiago Primary Care Physician Encounter VC Date(s): 10/31/16 - 10/31/16 [facility] Ten[facility] [address] [place] [address] [place] Discharge Diagnosis: Acute bacterial sinusitis Discharge Disposition: 01-Home or Self Care Attending Physician: Feli Santiago DO Admitting Physician: Feli Santiago DO Vital Signs Most recent to oldest [Reference Range]: 1 Temperature Tympanic [36.6-38.1 degC] 37.4 degC (10/31/16 1:12 PM) Peripheral Pulse Rate [60-100 bpm] 69 bpm (10/31/16 1:12 PM) Blood Pressure [90-140/60-90 mmHg] 136/88 mmHg (10/31/16 1:12 PM) SpO2 97 % (10/31/16 [...] # 30 tabs, 11 Refill(s) , Pharmacy: [facility] #[id number], 1 tabs Oral Daily,Instr:for blood pressures above 140 Start Date: 08/14/16 Status: Orderedaspirin 81 mg, Oral, Daily, 0 Refill(s) Start Date: 06/30/14 Status: OrderedAugmentin 875 mg-125 mg oral tablet 1 tabs, Oral, q12hr, X 7 days, # 14 tabs, 0 Refill(s), Pharmacy: [facility] #[id number] Start Date: 10/31/16 Stop Date: 11/07/16 Status: OrderedBreo Ellipta 100 mcg-25 mcg/inh inhalation powder 1 puffs, Inhalation, Daily, SAMPLE GIVEN, # 30 Each, 0 Refill(s) Start Date: 05/15/16 Status: Orderedcitalopram 10 mg oral tablet 10 mg 1 tabs, Oral, Daily, # 30 tabs, 11 Refill(s), Pharmacy: [facility] # [id number], 1 tabs Oral Daily Start Date: 08/14/16 Status: OrderedDuoNeb 0.5 mg-2.5 mg/3 mL inhalation solution 3 mL, Inhalation, QID, # 30 Each, 2 Refill(s), Pharmacy: [facility] # [id number] Start Date: 07/24/16 Status: Orderedgabapentin 100 mg oral capsule 100 mg 1 caps, Oral, BID, as needed for pain, 0 Refill(s) Start Date: 06/19/16 Status: Orderedgabapentin 600 mg oral tablet See Instructions, TAKE ONE TABLET BY MOUTH AT BEDTIME, # 90 tabs, eRx: [facility] #[id number], TAKE ONE TABLET BY MOUTH AT BEDTIME Start Date: 09/20/16 Status: Orderedgabapentin 600 mg oral tablet 600 mg 1 tabs, Oral, Bedtime (once a day), 0 Refill(s) Start Date: 06/19/16 Status: OrderedLasix 40 mg oral tablet See Instructions, TAKE 1 TABLET BY MOUTH EVERY DAY, # 30 tabs, 2 Refill(s), eRx : [facility] #[id number], TAKE 1 TABLET BY MOUTH EVERY DAY [...] 30 unknown unit, 2 Refill( s), eRx: [facility] #[id number], TAKE 1 TABLET BY MOUTH EVERY DAY Start Date: 01/12/15 Status: OrderedProAir HFA 90 mcg/inh inhalation aerosol See Instructions, INHALE TWO PUFFS BY MOUTH EVERY 4 TO 6 HOURS NEEDED, # 8.5 g, 2 Refill(s), Pharmacy: [facility] #[id number] Start Date: 07/02/15 Status: OrderedPromethazine DM 6.25 mg-15 mg/5 mL oral syrup 5 mL, Oral, q6hr, as needed for cough, # 120 mL, 0 Refill(s), Pharmacy: [facility] #[id number] Start Date: 09/14/16 Status: Ordered Results No [...] zoster vaccine live 08/07/13 Given 1Result Comment: [email or web address] Comment: [06/10/2015 Uncharted] Uploaded in Error - [...] needed. Ordered: Office Visit Level 3 Est 74051
--- OUTSIDE RECORDS SUMMARY | 2017-07-19 17:25 | External Medical Summary | Referral Summary ---
:1939 Author Organization [facility] Address [address] [place] [address] [place] [address] Care Team Providers Name Role Phone Feli Santiago Primary Care Physician Encounter VC [facility] [id number] Date(s): 10/25/15 - 10/25/15 [facility] [address] [place] [address] [place] Discharge Diagnosis: History of pneumonia Discharge Disposition: 01-Home or Self Care Attending Physician: Leona Castro APRN Admitting Physician: Leona Castro APRN Vital Signs Most recent to oldest [Reference Range]: 1 Temperature Tympanic [36.6-38.1 degC] 36.5 degC *LOW* (10/25/15 9:28 AM) Peripheral Pulse Rate [60-100 bpm] 73 bpm (10/25/15 9:28 AM) Blood Pressure [90-140/60-90 mmHg] 122/66 mmHg (10/25/15 9:28 AM) SpO2 93 % (10/25/15 9:28 AM) Problem List Condition Effective Dates Status [...] Daily, # 30 tabs, 0 Refill(s), Pharmacy: [facility] # [id number], 1 tabs Oral Daily Start Date: 10/25/15 Status: OrderedColace 100 mg oral capsule 1 caps, Oral, BID, as needed for constipation, # 20 caps, 0 Refill(s) Start Date: 05/20/14 Status: OrderedDuoNeb 0.5 mg-2.5 mg/3 mL inhalation solution 3 mL, Inhalation, QID, # 30 Each, 0 Refill(s), Pharmacy: [facility] # [id number] Start Date: 11/05/14 Status: Orderedgabapentin 100 mg oral capsule 200 mg 2 caps, Oral, BID, # 120 caps, 4 Refill(s) Start Date: 03/12/15 Status: Orderedipratropium 500 mcg/2.5 mL inhalation solution See Instructions, INHALE ONE VIAL VIA NEBULIZER THREE TIMES A DAY NEEDED FOR WHEEZING, # 120 Each, 1 Refill(s), Pharmacy: [facility] #[id number], INHALE ONE VIAL VIA NEBULIZER THREE TIMES A DAY ASNEEDED FOR WHEEZING Start Date: 08/31/15 Status: OrderedLasix 40 mg oral tablet See Instructions, TAKE 1 TABLET BY MOUTH EVERY DAY, # 30 tabs, 2 Refill(s), eRx : [facility] #[id number], TAKE 1 TABLET BY MOUTH EVERY DAY Start Date: 01/12/15 Status: OrderedLevaquin 750 mg oral tablet 750 mg 1 tabs, Oral, q24hr, X 10 days, # 10 tabs, 0 Refill(s), Pharmacy: [facility] #[id number], 1tabs Oral q24hr,x10 days Start Date: 10/25/15 Stop Date: 11/04/15 Status: OrderedMucinex DM 30 mg-600 mg oral [...] 30 unknown unit, 2 Refill( s), eRx: [facility] #[id number], TAKE 1 TABLET BY MOUTH EVERY DAY Start Date: 01/12/15 Status: OrderedPriLOSEC 20 mg oral delayed release capsule 20 mg 1 caps, Oral, BID, # 180 caps, 3 Refill(s), Pharmacy: [facility] # [id number], 1 caps Oral BID Start Date: 03/12/15 Status: OrderedProAir HFA 90 mcg/inh inhalation aerosol See Instructions, INHALE TWO PUFFS BY MOUTH EVERY 4 TO 6 HOURS NEEDED, # 8.5 g, 2 Refill(s), Pharmacy: [facility] #[id number] Start Date: 07/02/15 Status: Orderedpromethazine-dextromethorphan 6.25 mg-15 mg/5 mL oral syrup See Instructions, TAKE 5 ML BY MOUTH EVERY 6 HOURS NEEDED FOR COUGH, # 120 unknown unit, eRx: [facility] #[id number], TAKE 5 ML BY MOUTH EVERY 6 HOURS NEEDED FOR COUGH Start Date: 08/31/15 Status: OrderedTessalon Perles 100 mg oral capsule 100 mg 1 caps, Oral, TID, # 30 caps, 3 Refill(s), Pharmacy: [facility] # [id number], 1 caps Oral TID Start Date: 09/23/15 Status: OrderedValium 5 mg oral tablet 2.5 mg 0.5 tabs, Oral, Daily, as needed for anxiety, # 15 tabs, 0 Refill(s) Start Date: 10/25/15 Status: OrderedVentolin HFA 90 mcg/inh inhalation aerosol 1 puffs, Inhalation, QID, as needed for wheezing, # 8 g, 6 Refill(s), Pharmacy: [facility] #[id number], 1 puffs Inhalation QID,PRN:as needed for wheezing [...]
--- OUTSIDE RECORDS SUMMARY | 2017-07-19 17:25 | External Medical Summary | Continuity of Care Document ---
:1939 Author Organization Via [facility] Allergies Medications Problems Procedures Results Encounters ACCT No. Visit Discharge Status Pt. Type Provider Facility Loc./Unit Complaint Date/Time [id number] 12/25/2013 12/25/2013 CLS Outpatient 09:42:00 23:59:59 [id number] 12/18/2013 12/18/2013 CLS Outpatient 10:35:00 23:59:59 [id number] 12/05/2013 12/05/2013 CLS Outpatient 08:26:00 23:59:59 [id number] 12/02/2013 12/02/2013 CLS Outpatient 10:50:00 23:59:59 [id number] 11/13/2013 11/13/2013 CLS Outpatient 09:25:00 23:59:59 [id number] 10/16/2013 10/16/2013 CLS Outpatient 12:00:00 23:59:59 [id number] 07/22/2013 07/22/2013 CLS Outpatient 13:41:00 23:59:59
--- OUTSIDE RECORDS SUMMARY | 2017-07-19 17:25 | External Medical Summary | Referral Summary ---
:1939 Author Organization Via [facility] Address [address] [place] [address] Care Team Providers Name Role Phone Feli Santiago Primary Care Physician Encounter VC Date(s): 03/22/15 - 03/22/15 [facility] [address] [place] [address]- [place] Discharge Diagnosis: Abnormal CT [...] QID, # 30 Each, 0 Refill(s), Pharmacy: [facility] # [id number] Start Date: 11/05/14 Status: Orderedgabapentin 100 mg oral capsule 200 mg 2 caps, Oral, BID, # 120 caps, 4 Refill(s) Start Date: 03/12/15 Status: Orderedipratropium 500 mcg/2.5 mL inhalation solution See Instructions, INHALE ONE VIAL VIA NEBULIZER THREE TIMES A DAY NEEDED FOR WHEEZING, # 225 unknown unit, eRx: [facility] #[id number], INHALE ONE VIAL VIA NEBULIZER THREE TIMES A DAY NEEDED FOR WHEEZING Start Date: 06/30/15 Status: OrderedLasix 40 mg oral tablet See Instructions, TAKE 1 TABLET BY MOUTH EVERY DAY, # 30 tabs, 2 Refill(s), eRx : [facility] #[id number], TAKE 1 TABLET BY MOUTH EVERY DAY [...] 30 unknown unit, 2 Refill( s), eRx: [facility] #[id number], TAKE 1 TABLET BY MOUTH EVERY DAY Start Date: 01/12/15 Status: OrderedPriLOSEC 20 mg oral delayed release capsule 20 mg 1 caps, Oral, BID, # 180 caps, 3 Refill(s), Pharmacy: [facility] # [id number], 1 caps Oral BID Start Date: 03/12/15 Status: OrderedProAir HFA 90 mcg/inh inhalation aerosol See Instructions, INHALE TWO PUFFS BY MOUTH EVERY 4 TO 6 HOURS NEEDED, # 8.5 g, 2 Refill(s), Pharmacy: [facility] #[id number] Start Date: 07/02/15 Status: OrderedPromethazine VC with [...]
--- OUTSIDE RECORDS SUMMARY | 2017-07-19 17:25 | External Medical Summary | Referral Summary ---
:1939 Author Organization Via [facility] Address [address] [place] [address] Care Team Providers Name Role Phone Feli Santiago Primary Care Physician Encounter VC [facility] [id number] Date(s): 10/10/16 - 10/10/16 [facility] [address] [place] [address]- [place] Discharge Diagnosis: Abnormal CT scan, chest Discharge Diagnosis: Focal atelectasis Discharge Disposition: -Home or Self Care Attending Physician: Xander Ford MD Admitting Physician: Xander Ford MD Vital Signs Most recent to oldest [Reference Range]: 1 Peripheral Pulse Rate [60-100 bpm] 66 bpm (10/10/16 9:15 AM) Respiratory Rate [14-20 br/min] 18 br/min (10/10/16 9:15 AM) Blood Pressure [90-140/60-90 mmHg] 150/82 mmHg *HI* (10/10/16 9:15 AM) SpO2 91 % [...] # 30 tabs, 11 Refill(s) , Pharmacy: [facility] #[id number], 1 tabs Oral Daily,Instr:for blood pressures above 140 Start Date: 08/14/16 Status: Orderedaspirin 81 mg, Oral, Daily, 0 Refill(s) Start Date: 06/30/14 Status: OrderedBreo Ellipta 100 mcg-25 mcg/inh inhalation powder 1 puffs, Inhalation, Daily, SAMPLE GIVEN, # 30 Each, 0 Refill(s) Start Date: 05/15/16 Status: Orderedcitalopram 10 mg oral tablet 10 mg 1 tabs, Oral, Daily, # 30 tabs, 11 Refill(s), Pharmacy: [facility] # [id number], 1 tabs Oral Daily Start Date: 08/14/16 Status: OrderedDuoNeb 0.5 mg-2.5 mg/3 mL inhalation solution 3 mL, Inhalation, QID, # 30 Each, 2 Refill(s), Pharmacy: [facility] # [id number] Start Date: 07/24/16 Status: Orderedgabapentin 100 mg oral capsule 100 mg 1 caps, Oral, BID, as needed for pain, 0 Refill(s) Start Date: 06/19/16 Status: Orderedgabapentin 600 mg oral tablet See Instructions, TAKE ONE TABLET BY MOUTH AT BEDTIME, # 90 tabs, eRx: [facility] #[id number], TAKE ONE TABLET BY MOUTH AT BEDTIME Start Date: 09/20/16 Status: Orderedgabapentin 600 mg oral tablet 600 mg 1 tabs, Oral, Bedtime (once a day), 0 Refill(s) Start Date: 06/19/16 Status: OrderedLasix 40 mg oral tablet See Instructions, TAKE 1 TABLET BY MOUTH EVERY DAY, # 30 tabs, 2 Refill(s), eRx : [facility] #[id number], TAKE 1 TABLET BY MOUTH EVERY DAY [...] s), eRx: [facility] #[id number], TAKE 1 TABLET BY MOUTH EVERY DAY Start Date: 01/12/15 Status: OrderedProAir HFA 90 mcg/inh inhalation aerosol See Instructions, INHALE TWO PUFFS BY MOUTH EVERY 4 TO 6 HOURS NEEDED, # 8.5 g, 2 Refill(s), Pharmacy: [facility] #[id number] Start Date: 07/02/15 Status: OrderedPromethazine DM 6.25 mg-15 mg/5 mL oral syrup 5 mL, Oral, q6hr, as needed for cough, # 120 mL, 0 Refill(s), Pharmacy: [facility] #[id number] Start Date: 09/14/16 Status: OrderedSpiriva 18 mcg, Inhalation, Daily, 0 [...] zoster vaccine live 08/07/13 Given 1Result Comment: [email or web address] Comment: [06/10/2015 Uncharted] Uploaded in Error - [...]
--- OUTSIDE RECORDS SUMMARY | 2017-07-19 17:25 | External Medical Summary | Referral Summary ---
:1939 Author Organization [facility] Address [address] [place] [address] [place] [address] Care Team Providers Name Role Phone Feli Santiago Primary Care Physician Encounter VC Date(s): 08/21/16 - 08/21/16 [facility] [address] [place] [address] [place] Discharge Diagnosis: COPD with acute exacerbation Discharge Disposition: 01-Home or Self Care Attending Physician: Feli Santiago DO Admitting Physician: Feli Santiago DO Vital Signs Most recent to oldest [Reference Range]: 1 Temperature Tympanic [36.6-38.1 degC] 36.7 degC (08/21/16 2:41 PM) Peripheral Pulse Rate [60-100 bpm] 89 bpm (08/21/16 2:41 PM) Respiratory Rate [14-20 br/min] 28 br/min *HI* (08/21/16 2:41 PM) Blood Pressure [90-140/60-90 mmHg] 138/66 mmHg (08/21/16 2:41 PM) SpO2 76 % (08/21/16 [...] # 30 tabs, 11 Refill(s) , Pharmacy: [facility] #[id number], 1 tabs Oral Daily,Instr:for blood pressures above 140 Start Date: 08/14/16 Status: Orderedaspirin 81 mg, Oral, Daily, 0 Refill(s) Start Date: 06/30/14 Status: OrderedBactroban 2% topical cream 1 donta, Topical, TID, # 30 g, 0 Refill(s), Pharmacy: [facility] #[id number] Start Date: 05/03/16 Status: OrderedBreo Ellipta 100 mcg-25 mcg/inh inhalation powder 1 puffs, Inhalation, Daily, SAMPLE GIVEN, # 30 Each, 0 Refill(s) Start Date: 05/15/16 Status: Orderedcitalopram 10 mg oral tablet 10 mg 1 tabs, Oral, Daily, # 30 tabs, 11 Refill(s), Pharmacy: [facility] # [id number], 1 tabs Oral Daily Start Date: 08/14/16 Status: OrderedColace 100 mg oral capsule 1 caps, Oral, BID, as needed for constipation, # 20 caps, 0 Refill(s) Start Date: 05/20/14 Status: Ordereddoxycycline hyclate 100 mg oral tablet 100 mg 1 tabs, Oral, Daily, X 10 days, # 10 tabs, 0 Refill(s), Pharmacy: [facility] #[id number], 1tabs Oral Daily,x10 days Start Date: 08/21/16 Stop Date: 08/31/16 Status: OrderedDuoNeb 0.5 mg-2.5 mg/3 mL inhalation solution 3 mL, Inhalation, QID, # 30 Each, 2 Refill(s), Pharmacy: [facility] # [id number] Start Date: 07/24/16 Status: Orderedgabapentin 100 mg [...] # 30 tabs, 2 Refill(s), eRx : [facility] #[id number], TAKE 1 TABLET BY MOUTH EVERY DAY [...] 30 unknown unit, 2 Refill( s), eRx: [facility] #[id number], TAKE 1 TABLET BY MOUTH EVERY DAY Start Date: 01/12/15 Status: OrderedpredniSONE 20 mg oral tablet See Instructions, 3 tablets daily for 3 days, 2 tables daily for 3 days, 1 tablet daily for 3 days, 1/2 tablet daily for 3 days. with food., # 20 tabs, 0 Refill(s), Pharmacy: [facility] #[id number], 3 tablets daily for 3 days, 2 tables daily for 3 d... Start Date: 08/21/16 Status: OrderedPrevacid SoluTab 15 mg oral tablet, disintegrating 15 mg 1 tabs, Oral, BID, 0 Refill(s) Start Date: 06/19/16 Status: OrderedProAir HFA 90 mcg/inh inhalation aerosol See Instructions, INHALE TWO PUFFS BY MOUTH EVERY 4 TO 6 HOURS NEEDED, # 8.5 g, 2 Refill(s), Pharmacy: [facility] #[id number] Start Date: 07/02/15 Status: OrderedSpiriva 18 mcg, [...] should return to clinic if not improving or present to emergency department with worsening respiratory distress. Ordered: Office Visit Level 4 Est 98104
--- OUTSIDE RECORDS SUMMARY | 2017-07-19 17:25 | External Medical Summary | Referral Summary ---
:1939 Author Organization Via ABDIRASH[facility]orio [facility], [facility] Address [address] [place] [address] [place] [address] Care Team Providers Name Role Phone Feli Santiago Primary Care Physician Encounter VC Date(s): 07/19/15 - 07/19/15 Via ABDIRASHID Tenorio [place], [address] [place] [phone] Discharge Diagnosis: [...] # 30 tabs, 0 Refill(s), Pharmacy : [facility] #[id number], 1 tabs Oral every other day. Start Date: 01/07/16 Status: OrderedColace 100 mg oral capsule 1 caps, Oral, BID, as needed for constipation, # 20 caps, 0 Refill(s) Start Date: 05/20/14 Status: OrderedDuoNeb 0.5 mg-2.5 mg/3 mL inhalation solution 3 mL, Inhalation, QID, # 30 Each, 0 Refill(s), Pharmacy: [facility] # [id number] Start Date: 11/05/14 Status: Orderedgabapentin 100 mg oral capsule 200 mg 2 caps, Oral, BID, # 120 caps, 4 Refill(s) Start Date: 03/12/15 Status: Orderedipratropium 500 mcg/2.5 mL inhalation solution See Instructions, INHALE ONE VIAL VIA NEBULIZER THREE TIMES A DAY NEEDED FOR WHEEZING, # 120 Each, 1 Refill(s), Pharmacy: [facility] #[id number], INHALE ONE VIAL VIA NEBULIZER THREE TIMES A DAY ASNEEDED FOR WHEEZING Start Date: 08/31/15 Status: OrderedLasix 40 mg oral tablet See Instructions, TAKE 1 TABLET BY MOUTH EVERY DAY, # 30 tabs, 2 Refill(s), eRx : [facility] #[id number], TAKE 1 TABLET BY MOUTH EVERY DAY [...] unknown unit, 2 Refill( s), eRx: [facility] #[id number], TAKE 1 TABLET BY MOUTH EVERY DAY Start Date: 01/12/15 Status: OrderedPriLOSEC 20 mg oral delayed release capsule 20 mg 1 caps, Oral, BID, # 180 caps, 3 Refill(s), Pharmacy: [facility] # [id number], 1 caps Oral BID Start Date: 03/12/15 Status: OrderedProAir HFA 90 mcg/inh inhalation aerosol See Instructions, INHALE TWO PUFFS BY MOUTH EVERY 4 TO 6 HOURS NEEDED, # 8.5 g, 2 Refill(s), Pharmacy: [facility] #[id number] Start Date: 07/02/15 Status: OrderedValium 5 mg oral tablet 2.5 mg 0.5 tabs, Oral, Daily, as needed for anxiety, # 15 tabs, 0 Refill(s) Start Date: 10/25/15 Status: OrderedVentolin HFA 90 mcg/inh inhalation aerosol 1 puffs, Inhalation, QID, as needed for wheezing, # 8 g, 6 Refill(s), Pharmacy: [facility] #[id number], 1 puffs Inhalation QID,PRN:as needed for wheezing [...] [1.00-4.00 10*3] 2.48 10*3 (07/19/15 1:45 PM) [place] [facility] [0.20-0.80 10*3] 0.50 10*3 (07/19/15 1:45 [...] hand hygiene. Increase fluids. Okay to use [id number]-fxcnxal cough and cold medication as needed. Tylenol/Ibuprofen as needed for fev er or pain. FU with PCP if not improving, worsening symptoms, or as needed. Questions were answered. Patient verbalized understanding. Patient left in stable condition. Orders: CBC w/ Differential Comprehensive Metabolic Panel XR Chest 2 Views
--- OUTSIDE RECORDS SUMMARY | 2017-07-19 17:25 | External Medical Summary | Referral Summary ---
:1939 Author Organization [facility] Address [address] [place] [address] [place] [address] Care Team Providers Name Role Phone Feli Santiago Primary Care Physician Encounter VC Date(s): 11/20/16 - 11/20/16 [facility] [place] [place] [phone] [place] Discharge Diagnosis: COPD with acute exacerbation Discharge Disposition: 01-Home or Self Care Attending Physician: Feli Santiago DO Admitting Physician: Feli Santiago DO Vital Signs Most recent to oldest [Reference Range]: 1 Temperature Tympanic [36.6-38.1 degC] 37.1 degC (11/20/16 10:48 AM) Peripheral Pulse Rate [60-100 bpm] 73 bpm (11/20/16 10:48 AM) Respiratory Rate [14-20 br/min] 20 br/min (11/20/16 10:48 AM) Blood Pressure [90-140/60-90 mmHg] 130/58 mmHg (11/20/16 10:48 AM) SpO2 92 % (11/20/16 [...] Daily, # 90 tabs, 0 Refill(s), Pharmacy: [facility] # [id number], 1 tabs Oral Daily Start Date: 11/17/16 Status: OrderedamLODIPine 5 mg oral tablet 5 mg 1 tabs, Oral, Daily, for blood pressures above 140, # 30 tabs, 11 Refill(s) , Pharmacy: [facility] #[id number], 1 tabs Oral Daily,Instr:for blood pressures above 140 Start Date: 08/14/16 Status: Orderedaspirin 81 mg, Oral, Daily, 0 Refill(s) Start Date: 06/30/14 Status: OrderedAugmentin 875 mg-125 mg oral tablet 1 tabs, Oral, q12hr, X 10 days, # 20 tabs, 0 Refill(s), Pharmacy: [facility] #[id number] Start Date: 11/20/16 Stop Date: 11/30/16 Status: OrderedBreo Ellipta 100 mcg-25 mcg/inh inhalation powder 1 puffs, Inhalation, Daily, SAMPLE GIVEN, # 30 Each, 0 Refill(s) Start Date: 05/15/16 Status: Orderedcitalopram 10 mg oral tablet 10 mg 1 tabs, Oral, Daily, # 30 tabs, 11 Refill(s), Pharmacy: [facility] # [id number], 1 tabs Oral Daily Start Date: 08/14/16 Status: OrderedDuoNeb 0.5 mg-2.5 mg/3 mL inhalation solution 3 mL, Inhalation, QID, # 30 Each, 2 Refill(s), Pharmacy: [facility] # [id number] Start Date: 07/24/16 Status: Orderedgabapentin 100 mg oral capsule 100 mg 1 caps, Oral, BID, as needed for pain, 0 Refill(s) Start Date: 06/19/16 Status: Orderedgabapentin 600 mg oral tablet See Instructions, TAKE ONE TABLET BY MOUTH AT BEDTIME, # 90 tabs, eRx: [facility] #[id number], TAKE ONE TABLET BY MOUTH AT BEDTIME Start Date: 09/20/16 Status: Orderedgabapentin 600 mg oral tablet 600 mg 1 tabs, Oral, Bedtime (once a day), 0 Refill(s) Start Date: 06/19/16 Status: OrderedLasix 40 mg oral tablet See Instructions, TAKE 1 TABLET BY MOUTH EVERY DAY, # 30 tabs, 2 Refill(s), eRx : [facility] #[id number], TAKE 1 TABLET BY MOUTH EVERY DAY [...] unknown unit, 2 Refill( s), eRx: [facility] #[id number], TAKE 1 TABLET BY MOUTH EVERY DAY Start Date: 01/12/15 Status: OrderedpredniSONE 20 mg oral tablet See Instructions, 80mg X 4 days 60mg X 4 days 40mg X 4 days 20mg X 4 days 10mg X 4 days, # 45 tabs, 0 Refill(s), Pharmacy: [facility] #[id number], 80mg X 4 days; 60mg X 4 days; 40mg X 4 days; 20mg X 4 days; 10mg X 4 days Start Date: 11/20/16 Status: OrderedPriLOSEC 20 mg oral delayed release capsule 20 mg 1 caps, Oral, BID, # 180 caps, 0 Refill(s), Pharmacy: [facility] # [id number], 1 caps Oral BID Start Date: 11/14/16 Status: OrderedProAir HFA 90 mcg/inh inhalation aerosol See Instructions, INHALE TWO PUFFS BY MOUTH EVERY 4 TO 6 HOURS NEEDED, # 8.5 g, 2 Refill(s), Pharmacy: [facility] #[id number] Start Date: 07/02/15 Status: OrderedPromethazine DM 6.25 mg-15 mg/5 mL oral syrup 5 mL, Oral, q6hr, as needed for cough, # 120 mL, 0 Refill(s), Pharmacy: [facility] #[id number] Start Date: 09/14/16 Status: Ordered Results No [...] zoster vaccine live 08/07/13 Given 1Result Comment: [id number] Comment: [06/10/2015 Uncharted] Uploaded in Error - [...] was negative for pneumonia,this is likely COPD exacerbation , will give patient Augmentin as well as a slow prednisone taper. Patient should continue oxygen and return to clinic or e mergency department with any significant change in symptoms or respiratory distress. Ordered: Office Visit Level 4 Est 75734 Cough Ordered: amoxicillin-clavulanate, 1 tabs, Oral, q12hr, X 10 days, # 20 tabs, 0 Refill(s), [facility] #[id number] predniSONE, See Instructions, 80mg X 4 days 60mg X 4 days 40mg X 4 days 20mg X 4 days 10mg X 4 days, # 45 tabs, 0 Refill(s), Pharmacy: [facility] # [id number], 80mg X 4 days; 60mg X 4 days; 40mg X 4 days; 20mg X 4 days; 10mg X 4 days XR Chest 2 Views
--- OUTSIDE RECORDS SUMMARY | 2017-07-19 17:25 | External Medical Summary | Referral Summary ---
:1939 Author Organization [facility] Address [address] [place] [address] [place] [address] Care Team Providers Name Role Phone Feli Santiago Primary Care Physician Encounter VC Date(s): 04/17/16 - 04/17/16 [facility] [place] [place] [phone] [place] Discharge Disposition: 01-Home or Self Care Attending Physician: Eloy Singleton APRN Admitting Physician: Eloy Singleton APRN Vital Signs Most recent to oldest [Reference Range]: 1 Temperature Tympanic [36.6-38.1 degC] 36.6 degC (04/17/16 1:33 PM) Peripheral Pulse Rate [60-100 bpm] 65 bpm (04/17/16 1:33 PM) Respiratory Rate [14-20 br/min] 18 br/min (04/17/16 1:33 PM) Blood Pressure [90-140/60-90 mmHg] 128/70 mmHg (04/17/16 1:33 PM) SpO2 96 % (04/17/16 1:33 PM) Problem List Condition Effective Dates [...] EVERY OTHER DAY, # 30 tabs, eRx: [facility] #[id number], TAKE ONE TABLET BY MOUTH EVERY OTHER DAY Start Date: 03/02/16 Status: OrderedColace 100 mg oral capsule 1 caps, Oral, BID, as needed for constipation, # 20 caps, 0 Refill(s) Start Date: 05/20/14 Status: OrderedDuoNeb 0.5 mg-2.5 mg/3 mL inhalation solution 3 mL, Inhalation, QID, # 30 Each, 0 Refill(s), Pharmacy: [facility] # [id number] Start Date: 11/05/14 Status: Orderedgabapentin 100 mg oral capsule 200 mg 2 caps, Oral, BID, # 120 caps, 4 Refill(s) Start Date: 03/12/15 Status: Orderedipratropium 500 mcg/2.5 mL inhalation solution See Instructions, INHALE ONE VIAL VIA NEBULIZER THREE TIMES A DAY NEEDED FOR WHEEZING, # 120 Each, 1 Refill(s), Pharmacy: [facility] #[id number], INHALE ONE VIAL VIA NEBULIZER THREE TIMES A DAY ASNEEDED FOR WHEEZING Start Date: 08/31/15 Status: OrderedLasix 40 mg oral tablet See Instructions, TAKE 1 TABLET BY MOUTH EVERY DAY, # 30 tabs, 2 Refill(s), eRx : [facility] #[id number], TAKE 1 TABLET BY MOUTH EVERY DAY Start Date: 01/12/15 Status: OrderedLevaquin 500 mg oral tablet 500 mg 1 tabs, Oral, q24hr, X 10 days, # 10 tabs, 0 Refill(s), Pharmacy: [facility] #[id number], 1tabs Oral q24hr,x10 days Start Date: 04/17/16 Stop Date: 04/27/16 Status: OrderedMucinex DM 30 mg-600 mg oral [...] 30 unknown unit, 2 Refill( s), eRx: [facility] #[id number], TAKE 1 TABLET BY MOUTH EVERY DAY Start Date: 01/12/15 Status: OrderedpredniSONE 20 mg oral tablet See Instructions, 2 tablets oral daily for 4 days then 1 tabs Oral Daily for 4 days, # 12 tabs, 0 Refill(s), Pharmacy: [facility] #[id number], 2 tablets oral daily for 4 days then 1 tabs Oral Daily for 4 days Start Date: 04/17/16 Stop Date: 04/25/16 Status: OrderedPriLOSEC 20 mg oral delayed release capsule 20 mg 1 caps, Oral, BID, # 180 caps, 3 Refill(s), Pharmacy: [facility] # [id number], 1 caps Oral BID Start Date: 03/12/15 Status: OrderedProAir HFA 90 mcg/inh inhalation aerosol See Instructions, INHALE TWO PUFFS BY MOUTH EVERY 4 TO 6 HOURS NEEDED, # 8.5 g, 2 Refill(s), Pharmacy: [facility] #[id number] Start Date: 07/02/15 Status: OrderedValium 5 mg oral tablet 2.5 mg 0.5 tabs, Oral, Daily, as needed for anxiety, # 15 tabs, 0 Refill(s) Start Date: 10/25/15 Status: OrderedVentolin HFA 90 mcg/inh inhalation aerosol 1 puffs, Inhalation, QID, as needed for wheezing, # 8 g, 6 Refill(s), Pharmacy: [facility] #[id number], 1 puffs Inhalation QID,PRN:as needed for wheezing [...]
--- OUTSIDE RECORDS SUMMARY | 2017-07-19 17:25 | External Medical Summary | Referral Summary ---
:1939 Author [facility] Address [address] [place] [address] [place] [address] Care Team Providers Name Role Phone Feli Santiago Primary Care Physician Encounter VC Date(s): 11/08/15 - 11/08/15 [facility] [place] [place] [phone] [place] Discharge Diagnosis: History of pneumonia Discharge Disposition: 01-Home or Self Care Attending Physician: Leona Castro APRN Admitting Physician: Leona Castro APRN Vital Signs Most recent to oldest [Reference Range]: 1 Temperature Tympanic [36.6-38.1 degC] 36.5 degC *LOW* (11/08/15 9:23 AM) Peripheral Pulse Rate [60-100 bpm] 75 bpm (11/08/15 9:23 AM) Blood Pressure [90-140/60-90 mmHg] 118/64 mmHg (11/08/15 9:23 AM) SpO2 96 % (11/08/15 9:23 AM) Problem List Condition Effective Dates Status [...] # 30 tabs, 0 Refill(s), Pharmacy: [facility] # [id number], 1 tabs Oral Daily Start Date: 10/25/15 Status: OrderedColace 100 mg oral capsule 1 caps, Oral, BID, as needed for constipation, # 20 caps, 0 Refill(s) Start Date: 05/20/14 Status: OrderedDuoNeb 0.5 mg-2.5 mg/3 mL inhalation solution 3 mL, Inhalation, QID, # 30 Each, 0 Refill(s), Pharmacy: [facility] # [id number] Start Date: 11/05/14 Status: Orderedgabapentin 100 mg oral capsule 200 mg 2 caps, Oral, BID, # 120 caps, 4 Refill(s) Start Date: 03/12/15 Status: Orderedipratropium 500 mcg/2.5 mL inhalation solution See Instructions, INHALE ONE VIAL VIA NEBULIZER THREE TIMES A DAY NEEDED FOR WHEEZING, # 120 Each, 1 Refill(s), Pharmacy: [facility] #[id number], INHALE ONE VIAL VIA NEBULIZER THREE TIMES A DAY ASNEEDED FOR WHEEZING Start Date: 08/31/15 Status: OrderedLasix 40 mg oral tablet See Instructions, TAKE 1 TABLET BY MOUTH EVERY DAY, # 30 tabs, 2 Refill(s), eRx : [facility] #[id number], TAKE 1 TABLET BY MOUTH EVERY DAY [...] s), eRx: [facility] #[id number], TAKE 1 TABLET BY MOUTH EVERY DAY Start Date: 01/12/15 Status: OrderedPriLOSEC 20 mg oral delayed release capsule 20 mg 1 caps, Oral, BID, # 180 caps, 3 Refill(s), Pharmacy: [facility] # [id number], 1 caps Oral BID Start Date: 03/12/15 Status: OrderedProAir HFA 90 mcg/inh inhalation aerosol See Instructions, INHALE TWO PUFFS BY MOUTH EVERY 4 TO 6 HOURS NEEDED, # 8.5 g, 2 Refill(s), Pharmacy: [facility] #[id number] Start Date: 07/02/15 Status: Orderedpromethazine-dextromethorphan 6.25 mg-15 mg/5 mL oral syrup See Instructions, TAKE 5 ML BY MOUTH EVERY 6 HOURS NEEDED FOR COUGH, # 120 unknown unit, eRx: [facility] #[id number], TAKE 5 ML BY MOUTH EVERY 6 HOURS NEEDED FOR COUGH Start Date: 08/31/15 Status: OrderedTessalon Perles 100 mg oral capsule 100 mg 1 caps, Oral, TID, # 30 caps, 3 Refill(s), Pharmacy: [facility] # [id number], 1 caps Oral TID Start Date: 09/23/15 Status: OrderedValium 5 mg oral tablet 2.5 mg 0.5 tabs, Oral, Daily, as needed for anxiety, # 15 tabs, 0 Refill(s) Start Date: 10/25/15 Status: OrderedVentolin HFA 90 mcg/inh inhalation aerosol 1 puffs, Inhalation, QID, as needed for wheezing, # 8 g, 6 Refill(s), Pharmacy: [facility] #[id number], 1 puffs Inhalation QID,PRN:as needed for wheezing [...]
--- OUTSIDE RECORDS SUMMARY | 2017-07-19 17:25 | External Medical Summary | Referral Summary ---
:1939 Author Organization [facility] Address [address] [place] [address] [place] [address] Care Team Providers Name Role Phone Feli Santiago Primary Care Physician Encounter VC [facility] [id number] Date(s): 07/24/16 - 07/24/16 [facility] [address] [place] [phone] [place] Discharge Diagnosis: Muscle cramps Discharge Diagnosis: Benign hypertension Discharge Disposition: 01-Home or Self Care Attending Physician: Feli Santiago DO Admitting Physician: Feli Santiago DO Vital Signs Most recent to oldest [Reference Range]: 1 Temperature Tympanic [36.6-38.1 degC] 36.7 degC (07/24/16 8:38 AM) Peripheral Pulse Rate [60-100 bpm] 71 bpm (07/24/16 8:38 AM) Respiratory Rate [14-20 br/min] 16 br/min (07/24/16 8:38 AM) Blood Pressure [90-140/60-90 mmHg] 140/60 mmHg (07/24/16 8:38 AM) SpO2 95 % (07/24/16 [...] tabs, 0 Refill(s) , Pharmacy: [facility] #[id number], 1 tabs Oral Daily,Instr:for blood pressures above 140 Start Date: 06/22/16 Status: Orderedaspirin 81 mg, Oral, Daily, 0 Refill(s) Start Date: 06/30/14 Status: OrderedBactroban 2% topical cream 1 donta, Topical, TID, # 30 g, 0 Refill(s), Pharmacy: [facility] #[id number] Start Date: 05/03/16 Status: OrderedBreo Ellipta 100 mcg-25 mcg/inh inhalation powder 1 puffs, Inhalation, Daily, SAMPLE GIVEN, # 30 Each, 0 Refill(s) Start Date: 05/15/16 Status: Orderedcitalopram 10 mg oral tablet 10 mg 1 tabs, Oral, Daily, # 30 tabs, 1 Refill(s), Pharmacy: [facility] # [id number], 1 tabs Oral Daily Start Date: 05/15/16 Status: OrderedColace 100 mg oral capsule 1 caps, Oral, BID, as needed for constipation, # 20 caps, 0 Refill(s) Start Date: 05/20/14 Status: OrderedDuoNeb 0.5 mg-2.5 mg/3 mL inhalation solution 3 mL, Inhalation, QID, # 30 Each, 2 Refill(s), Pharmacy: [facility] # [id number] Start Date: 07/24/16 Status: Orderedgabapentin 100 mg [...] tabs, 2 Refill(s), eRx : [facility] #[id number], TAKE 1 TABLET BY MOUTH EVERY DAY [...] unit, 2 Refill( s), eRx: [facility] #[id number], TAKE 1 TABLET BY MOUTH EVERY DAY Start Date: 01/12/15 Status: OrderedPrevacid SoluTab 15 mg oral tablet, disintegrating 15 mg 1 tabs, Oral, BID, 0 Refill(s) Start Date: 06/19/16 Status: OrderedProAir HFA 90 mcg/inh inhalation aerosol See Instructions, INHALE TWO PUFFS BY MOUTH EVERY 4 TO 6 HOURS NEEDED, # 8.5 g, 2 Refill(s), Pharmacy: [facility] #[id number] Start Date: 07/02/15 Status: OrderedSpiriva 18 mcg, [...] the amlodipine or not. As have an appointment in about 3 weeks already for her chronic disease follow-up. Ordered: Office Visit Level 4 Est 56629 Chronic obstructive pulmonary disease (COPD) Continue with the Brio samples , continue with oxygenwith activity during the day and all night long. Ordered: ipratropium-albuterol, 3 mL, Inhalation, QID, # 30 Each, 2 Refill(s), Pharmacy : [facility] #[id number] Office Visit Level 4 Est 03020 Muscle cramps Patient will try tonic water and if this is not effective we will do lab work at her chronic disease visit in a few weeks. Ordered: Office Visit Level 4 Est 29196
--- OUTSIDE RECORDS SUMMARY | 2017-07-19 17:25 | External Medical Summary | Referral Summary ---
:1939 Author Organization Via [facility]IRASH[facility] Address [address] [place] [address] [place] [address] Care Team Providers Name Role Phone Feli Santiago Primary Care Physician Encounter VC Date(s): 03/12/15 - 03/12/15 [facility] [place] [place] [phone] [place] Discharge Diagnosis: Emphysema/COPD Discharge Diagnosis: Osteoarthritis Discharge Diagnosis: Anxiety Discharge Diagnosis: Mammogram Discharge Diagnosis: Neuropathy Discharge Disposition: -Home or Self Care Attending Physician: Donna Donovan MD Admitting Physician: Donna Donovan MD Vital Signs Most recent to oldest [Reference Range]: 1 Temperature Tympanic [36.6-38.1 degC] 36.6 degC (03/12/15 8:48 AM) Peripheral Pulse Rate [60-100 bpm] 64 bpm (03/12/15 8:48 AM) Respiratory Rate [14-20 br/min] 16 br/min (03/12/15 8:48 AM) Blood Pressure [90-140/60-90 mmHg] 122/64 mmHg (03/12/15 8:48 AM) Problem List Condition Effective Dates [...] # 30 Each, 0 Refill(s), Pharmacy: [facility] # [id number] Start Date: 11/05/14 Status: Orderedgabapentin 100 mg oral capsule 200 mg 2 caps, Oral, BID, # 120 caps, 4 Refill(s) Start Date: 03/12/15 Status: Orderedipratropium 500 mcg/2.5 mL inhalation solution See Instructions, INHALE ONE VIAL VIA NEBULIZER THREE TIMES A DAY NEEDED FOR WHEEZING, # 120 Each, 1 Refill(s), Pharmacy: [facility] #[id number], INHALE ONE VIAL VIA NEBULIZER THREE TIMES A DAY ASNEEDED FOR WHEEZING Start Date: 08/31/15 Status: OrderedLasix 40 mg oral tablet See Instructions, TAKE 1 TABLET BY MOUTH EVERY DAY, # 30 tabs, 2 Refill(s), eRx : [facility] #[id number], TAKE 1 TABLET BY MOUTH EVERY DAY [...] unknown unit, 2 Refill( s), eRx: [facility] #[id number], TAKE 1 TABLET BY MOUTH EVERY DAY Start Date: 01/12/15 Status: OrderedPriLOSEC 20 mg oral delayed release capsule 20 mg 1 caps, Oral, BID, # 180 caps, 3 Refill(s), Pharmacy: [facility] # [id number], 1 caps Oral BID Start Date: 03/12/15 Status: OrderedProAir HFA 90 mcg/inh inhalation aerosol See Instructions, INHALE TWO PUFFS BY MOUTH EVERY 4 TO 6 HOURS NEEDED, # 8.5 g, 2 Refill(s), Pharmacy: [facility] #[id number] Start Date: 07/02/15 Status: OrderedPromethazine VC with Codeine oral syrup See Instructions, as needed for cough, 5-10 mL Oral q4-6hr, # 240 mL, 0 Refill(s ) Start Date: 08/20/15 Status: Orderedpromethazine-dextromethorphan 6.25 mg-15 mg/5 mL oral syrup See Instructions, TAKE 5 ML BY MOUTH EVERY 6 HOURS NEEDED FOR COUGH, # 120 unknown unit, eRx: [facility] #[id number], TAKE 5 ML BY MOUTH EVERY 6 HOURS NEEDED FOR COUGH Start Date: 08/31/15 Status: OrderedValium 5 mg oral tablet 2.5 [...] Visit Note Author: Donna Donovan MD Date: 03/12/15 Assessment/Plan Anxiety Emphysema/COPD Mammogram Ordered: MG Mammogram Routine Screening Bilat Neuropathy Osteoarthritis Orders: albuterol, See Instructions, INHALE TWO PUFFS BY MOUTH EVERY 4 TO 6 HOURS NEEDED, # 1 Each, 3 Refill(s) diazepam, 2.5 mg 0.5 tabs, Oral, Daily, as needed for anxiety, # 15 tabs, 0 Refill(s) gabapentin, 200 mg 2 caps, Oral, BID, # 120 caps, 4 Refill(s) gabapentin, 600 mg 1 tabs, Oral, Bedtime (once a day), # 90 tabs, 3 Refill(s) , Pharmacy: [facility] #[id number], 1 tabs Oral Bedtime (once a day) HYDROcodone-acetaminophen, 1-2 tabs, Oral, q4hr, as needed for pain, # 90 tabs, 0 Refill(s) meloxicam, 15 mg 1 tabs, Oral, Daily, # 90 tabs, 3 Refill(s), TAKE ONE TABLET BY MOUTH EVERY DAY WITH FOOD omeprazole, 20 mg 1 caps, Oral, BID, # 180 caps, 3 Refill(s), Pharmacy: [facility] #[id number], 1 caps Oral BID
--- NOTE | 2017-07-19 17:28 | XRay Report ---
INDICATION: dyspnea PROCEDURE: CHEST 2-VIEWS UPRIGHT (PA & LAT) Encounter: Initial COMPARISON: Chest CT dated January 11, 2017 and chest x-ray dated December 31, 2016 FINDINGS: New airspace consolidation in the right middle lobe with obscuration of the right heart border. Left lung appears clear. There is no pleural effusion or pneumothorax. The heart size, mediastinal contours and pulmonary vascularity are within normal limits. There is no significant skeletal abnormality. IMPRESSION: Right middle lobe pneumonia or atelectasis. .
[2017-07-19] MEDS: SALINE FLUSH 10ml SYRINGE IVF PRN (18:06)
[2017-07-19] MEDS ORDERED: LEVOFLOXACIN PB 500 MG/100 ML BAG IV SCH (19:00)
[2017-07-19] MEDS ORDERED: MORPHINE SULFATE 2mg INJECTION IVP PRN (19:30)
[2017-07-19] MEDS ORDERED: GABAPENTIN 100 MG CAPSULE PO PRN (19:30)
[2017-07-19] MEDS ORDERED: ALBUTEROL 2.5mg/3ml (0.083%) NEB AEROSOL PRN (19:30)
[2017-07-19] MEDS: ALBUTEROL/IPRATROPIUM 2.5mg-0.5mg/3ml NEB AEROSOL PRN (20:19)
[2017-07-19] MEDS: BUDESONIDE INH.SOLN 0.5mg/2ml NEB AEROSOL SCH (20:19)
--- NOTE | 2017-07-19 20:19 | History & Physical Report ---
<[place] - Last Filed: 07/19/17 20:16> History of Present Illness Date: 07/19/17 Chief complaint: dyspnea HPI: This is a 76 y/o female with copd oxygen at night dependent 2l. Patient with increased dyspnea over the past 2 weeks. She has seen her PCP who has escalated her treatment to include 80 mg prednisone daily with nebulized therapy. The pateint's sympotms have progressed and she is brought to the ED and found to be more hypoxic. CXR suggests right middle lobe pneumonia. The patient has a cough that is persitent and at times productive of yellow sputum. She is currently on augmentin The patient has remarkable dyspnea with any activity. Review of Systems Review of systems: no headache, no change in vision, no change in hearing, no sores in the mouth, no fever,chills or sweats, no neck or jaw pain, no chest pain, short of breath as noted above, no heart palpitations, hx of atrial fibrillation, no abdomen pain, no nausea or vomiting, bowel movements regualr without change, blood, mild edema recently noted no focal motor deficits. 12 pointROS otherwise negative except for outlined above. [facility] Patient Stated Medical History Cataracts Yes Cardiac Arrhythmia Yes: A FIB Hypertension Yes Asthma Yes Bronchitis Yes Chronic Obstructive Pulmonary Yes Disease (COPD) Pneumonia Yes Gastroesophageal Reflux Yes Disease Shingles Yes Surgical History: TAHBSO, appendectomy, cholecystectomy, arthroscopic procedure knee Family History: uniown at this time - Social History Smoking status: Former smoker Alcohol intake frequency: holidays/special occasions only Household members: none Current residence: Apartment/Private Home Medications Home Medications Medication Instructions Recorded Confirmed Type Meloxicam 15 mg PO DAILY PRN #0 03/14/11 07/19/17 History Gabapentin 600 mg PO HS #0 02/09/15 07/19/17 History Potassium Chloride 10 meq PO DAILY PRN #0 02/09/15 07/19/17 History Acetaminophen [Tylenol Extra 1,000 mg PO Q6H PRN #0 02/10/15 07/19/17 History Strength] Albuterol Sulfate [Ventolin Hfa] 1 puff INH DAILY PRN #0 06/12/16 07/19/17 History Citalopram Hydrobromide 10 mg PO DAILY #0 06/12/16 07/19/17 History [Citalopram HBr] Gabapentin 100 mg PO TID PRN #0 06/12/16 07/19/17 History Lansoprazole [Prevacid] 15 mg PO BID #0 06/12/16 07/19/17 History Allopurinol 100 mg PO DAILY #0 12/19/16 07/19/17 History Amox/Clav [Augmentin] 1 tab PO BID 07/19/17 07/19/17 History Furosemide [Lasix] 20 mg PO DAILY PRN 07/19/17 07/19/17 History LORazepam [Ativan] 0.5 mg PO HS PRN 07/19/17 07/19/17 History PredniSONE [Deltasone] 80 mg PO DAILY 07/19/17 07/19/17 History Promethazine + Dm Liq [Phenergan 5 ml PO Q4H PRN 07/19/17 07/19/17 History Dm Syrup] dilTIAZem HCl [Cartia Xt] 180 mg PO DAILY 07/19/17 07/19/17 History Allergies Allergy/AdvReac Type Severity Reaction Status Date / Time cefaclor Allergy Unknown Verified 07/19/17 16:41 Exam Vital Signs: Temperature 97.6 F 07/19/17 16:41 Pulse Rate 69 07/19/17 18:51 Respiratory Rate 16 07/19/17 18:51 Blood Pressure 152/68 H 07/19/17 18:51 Pulse Oximetry 96 07/19/17 18:51 Telemetry Rhythm: Sinus Rhythm - Constitutional Present: mild distress, well nourished, well developed, average body habitus, cooperative - Routine HEENT Exam Head: Present: normocephalic, atraumatic, cushingoid faces Eye: Present: EOMI, conjunctivae pink. Absent: scleral injection ENT: Present: mucous membranes moist - Routine Neck Exam Present: full ROM - Detailed Respiratory Exam Comments: patient with diminished breath sounds with no obvious wheezes or rhonchi - Routine Cardiovascular Exam Present: RRR, no murmur. Absent: S3 - Routine Abdominal Exam Present: soft, normoactive bowel sounds, non distended, non tender - Routine Extremities Exam Present: full ROM. Absent: cyanosis, clubbing Comments: trace edema - Routine Skin Exam Present: intact - Routine Neurological Exam Present: alert, oriented X3, CN II-XII intact. Absent: motor deficit - Routine Psychiatric Exam Present: normal affect, normal thought process Results - Labs CBC & Chem 7: 07/19/17 17:56 07/19/17 17:56 - ECG Data Tracing #1 sinus, left axis devisation, non ischemic - Imaging and Cardiology Chest x-ray Additional comments: radiology rad as possible right middle lobe infiltrate Assessment and Plan (1) COPD exacerbation Current visit: Yes Status: Acute 07/19/17 20:25 solumedrol, albuterol prn , duoneb, ivf, labs would not inform that this is hypercapnea. reassess in am. discussed with patient this will be along term process of healing. (2) Community acquired pneumonia Current visit: Yes Status: Acute 07/19/17 20:26 levaquin (higher risk for psuedomonas and as such quinalone to start with). cx ordered in ed (3) Acute respiratory failure with hypoxia Current visit: Yes Status: Acute 07/19/17 20:26 related to # 1 and #2, chronically on 2 at night . on 3.5 now. monitor and should improve as copd is improved and pneumonia treated (4) Atrial fibrillation Current visit: Yes Status: Acute 07/19/17 20:27 not presenot on admission. at high risk of reocuring with acute illness, admit to tele as a precaution. continue cardiazem. asa, apparently is not anticoagulated currently (5) GERD (gastroesophageal reflux disease) Current visit: Yes Status: Acute 07/19/17 20:28 continue PPI DVT Prophylaxis: SCD's, Lovenox GI Prophylaxis: Protonix Resuscitation Status: Full Code Hospital Course Summary Disclaimer: The visit summary below is not to be considered part of the above Progress Note. <Ruth Shaffer - Last Filed: 07/20/17 11:19> History of Present Illness Date: 07/20/17 [facility] Patient Stated Medical History Cataracts Yes Cardiac Arrhythmia Yes: A FIB Hypertension Yes Asthma Yes Bronchitis Yes Chronic Obstructive Pulmonary Yes Disease (COPD) Pneumonia Yes Gastroesophageal Reflux Yes Disease Shingles Yes Exam Vital Signs: Temperature 96.9 F 07/20/17 08:10 Pulse Rate 75 07/20/17 08:10 Respiratory Rate 20 07/20/17 08:10 Blood Pressure 160/75 H 07/20/17 08:10 Pulse Oximetry 96 07/20/17 08:10 Height/Weight/BMI: Height 5 ft 2 in Weight 184 lb 11.958 oz Body Mass Index 34.4 Results - Labs CBC & Chem 7: 07/20/17 04:43 07/20/17 04:43 Microbiology Results: Microbiology 07/20/17 10:10 Peripheral/Iv Start Blood Culture - Preliminary Culture Initiated - Results Pending Assessment and Plan (1) COPD exacerbation Current visit: Yes Status: Acute (2) Community acquired pneumonia Current visit: Yes Status: Acute (3) Acute respiratory failure with hypoxia Current visit: Yes Status: Acute (4) Atrial fibrillation Current visit: Yes Status: Acute (5) GERD (gastroesophageal reflux disease) Current visit: Yes Status: Acute Assessment and Plan: The patient was seen by me at 10 AM. Informant is patient patient's chart patient's computerized records. Chief complaint: shortness of breath History of present illness: The patient is a very pleasant 76-year-old white female who reports that she has had COPD for a long period of time and is on 2 L of oxygen at home normally. Over the last 2 weeks, she has been using up to 4 L of oxygen on a daily basis during the day as well as at night. Because of her increased shortness of breath, she has seen Dr. Jacome every week. The first week, she received a steroid injection, this week she received a steroid injection as well as starting on prednisone 80 mg by mouth daily with a taper that would have started today. She also was started on amoxicillin clavulanate 875 mg by mouth twice a day this week as well. She reports she has had no fevers, no chills, no night sweats, she has had more dyspnea on exertion but she can still walk a block or 2 before she has to stop to catch her breath. She has had a dry cough with occasional yellow sputum, no blood in her sputum, she has had no chest pain no pain with inspiration. She called her doctor's office yesterday because of persistent shortness of breath, she was advised to go to the hospital as there is nothing else they can do for her as an outpatient. Her O2 sat was 95% on 2 L at 7:35 PM last night. Her respiratory rate was 24, her temperature is 96.4. Her chest x-ray was reviewed and shows a right middle lobe pneumonia or atelectasis. She was admitted for further therapy and started on IV Solu-Medrol and levofloxacin. Past medical history: Cataracts Cardiac arrhythmia-atrial fibrillation for which she is is scheduled to see Dr. Liao Hypertension Asthma Bronchitis COPD Recurrent pneumonias Gastroesophageal reflux disease Shingles Arthritis primarily involving her back and feet Past surgical history: DHAVAL/BSO Appendectomy Cholecystectomy Left knee arthroscopic procedure Colonoscopy by Dr. Lopez it appears she is due for another one. Family history: Her father at the age of 78 from an [place] Mother age 61 oat cell carcinoma Personal history: She is she lives alone. She helps take care of her 25-year-old grandson with Down syndrome. She smoked from age 19 until age 50 about 1 pack per day, and she resumed smoking about 2 years ago for a short period of time about 6 months only 2-3 cigarettes a day after the sudden of her 54-year-old daughter from cardiac disease and obesity. Alcohol intake socially. She has no animal exposures. Her hobbies include volunteer work which she's not been able to do recently because of her breathing issues. Immunizations: She has had a shingles vaccine and she believes she's had a Prevnar vaccine she' s not sure if she's had a pneumococcal vaccine 23 Valent Because of her recent requirements are high doses of steroids, she has not had a flu vaccine for this year yet and will need when when her prednisone dose is less than 20 mg. In addition she will need to T data when her prednisone has been tapered as well. Allergies: Cefaclor she reports causes a loss of muscle control, however she is able to take ceftriaxone and cephalexin without difficulty. Review of systems: The patient denies fevers chills or sweats.she had occasionally Cecil Henry 5- 10 pounds of weight at which time she takes Lasix. HEENT: No headaches, no sinus problems, no sinus drainage, no visual changes, no sore throat, no sores in the mouth no dental problems. Lungs: See history of present illness CV: No chest pain,no palpitations, occasional swelling of the extremities GI: No nausea, no vomiting, no diarrhea, no constipation, no blood in the stool , no dark-colored stools, no bright red blood per rectum. : No dysuria, no hematuria, no flank pain. Musculoskeletal: No numbness or tingling in the arms or legs, no weakness. She does have occasional joint pains primarily in her back and ankles. Skin: No skin rash In general, the patient is alert and oriented 3, cooperative with exam, and moderate respiratory distress, requiring positives to complete full sentences. She does not use her accessory muscles to breathe. HEENT: Head is atraumatic, normocephalic, no conjunctival petechiae, no oral thrush, mucous membranes are moist and pink. Lungs: Decreased breath sounds bilaterally occasional wheezes on the right CV: Regular rate and rhythm without murmur, occasional extrasystole Abdomen: Soft, nontender, bowel sounds are present, there is no guarding no rebound. Extremities: No clubbing, no cyanosis, no edema. Skin: Warm and dry, no sign of rash Neuro: Patient is alert IV access: Left antecubital fossa Impression: COPD exacerbation, on 2 L of O2 by nasal cannula at night as baseline, with a right middle lobe infiltrate seen on chest x-ray. Interestingly the patient does not have clear-cut symptoms of infection such as fevers, chills etc. however these may be masked secondary to her steroid use. History of atrial fibrillation-normal sinus rhythm on monitor and by EKG at this time GERD Immunization status which cannot be corrected until the patient is on less than 20 mg of prednisone daily Plan: Discussed with respiratory therapy, will use [facility] Protocol. Continue IV Solu-Medrol We'll change to levofloxacin by mouth We'll obtain blood cultures, sputum culture, SOFTWARE [employer]ELOP[employer]ER respiratory panel, urine for Legionella antigen and strep pneumo antigen. Previous antibiotic use may decrease the chance of isolating a pathogen in her cultures. Continue the patient on her Cardizem for her atrial fibrillation, she is not on other anticoagulation other than an aspirin at home. Currently she is receiving enoxaparin. We'll recheck laboratory in the morning. Hospital Course Summary Disclaimer: The visit summary below is not to be considered part of the above Progress Note.
[2017-07-19] MEDS: METHYLPREDNISOLONE SOD SUCC 125mg/2ml INJECTION IVP SCH (21:46)
[2017-07-19] MEDS: ACETAMINOPHEN 325 MG TABLET PO PRN (21:54)
[2017-07-19] MEDS: LANSOPRAZOLE SOLU-TAB 15 MG TABLET PO SCH (21:54)
[2017-07-19] MEDS: GABAPENTIN 600 MG TABLET PO SCH (21:54)
[2017-07-19] MEDS: GUAIFENESIN/CODEINE 5ml ORAL LIQUID PO PRN (21:55)
[2017-07-20] MEDS: METHYLPREDNISOLONE SOD SUCC 125mg/2ml INJECTION IVP SCH ×4 (02:25→20:34)
[2017-07-20] MEDS: GUAIFENESIN/CODEINE 5ml ORAL LIQUID PO PRN ×2 (02:32→13:21)
[2017-07-20] MEDS: ACETAMINOPHEN 325 MG TABLET PO PRN ×2 (04:48→13:21)
[2017-07-20 04:50] VITALS: BMI 34.4
[2017-07-20] MEDS: ENOXAPARIN 40 MG/0.4 ML INJECTION SQ SCH (10:28)
[2017-07-20] MEDS: LANSOPRAZOLE SOLU-TAB 15 MG TABLET PO SCH ×2 (10:30→20:33)
[2017-07-20] MEDS: ALLOPURINOL 100 MG TABLET PO SCH (10:32)
[2017-07-20] MEDS: CITALOPRAM 10 MG TABLET PO SCH (10:32)
[2017-07-20] MEDS: ALBUTEROL/IPRATROPIUM 2.5mg-0.5mg/3ml NEB AEROSOL PRN (11:18)
[2017-07-20] MEDS: BUDESONIDE INH.SOLN 0.5mg/2ml NEB AEROSOL SCH ×3 (11:18→20:52)
[2017-07-20] MEDS: SALINE FLUSH 10ml SYRINGE IVF PRN ×2 (14:47→20:35)
--- NOTE | 2017-07-20 15:47 | Pulmonology Consult Note ---
<Shantel Byrne D - Last Filed: 07/20/17 15:32> History of Present Illness Consult date: 07/20/17 Reason for consult: COPD Chief complaint: SOB, cough History of present illness: This is a 76 yo female, patient of Dr. Ford with known Hx of COPD, abnormal CT with lung nodules (has been following for approx 4 yrs, next CT to be in Oct/Nov) and HTN. She states she usually has exacerbations and pneumonia every 6 months and has previously required hospitalizations. For the past 2 weeks she has noticed increased wheezing, SOB, cough and some sputum. She saw her PCP last Sunday and was given a steroid shot, started on prednisone and doxycycline. She unfortunately didn't improve much and was seen again this past Sunday by her PCP and was given another steroid shot, increased her prednisone to 80mg and started on augmentin. She states she didn't improve on the medications and noted increased SOB and wheezing so presented to the ER yesterday. She does use O2 at 2L per [place] at [facility] but has been using recently at home, is on Breo 100 1 puff daily and atrovent QID and albuterol neb/ventolin prn. On admit sats were 90% on RA, WBC normal, afebrile, CXR shows RML infiltrate on the lateral view. Was started on Levaquin, pulmicort BID, a/a QID and solumedrol 125 q6. We have been consulted for her pulmonary issues and appreciate the consult. She does already have an appointment scheduled with Dr. Castanon in August as she was switching to our practice in [place]. Review of Systems All systems: reviewed and no additional remarkable complaints except as stated - Constitutional Constitutional: Present: fatigue - Respiratory Respiratory: Present: cough, dyspnea, dyspnea on exertion, wheezing, chest congestion PFSH Patient Stated Medical History Cataracts Yes Cardiac Arrhythmia Yes: A FIB Hypertension Yes Asthma Yes Bronchitis Yes Chronic Obstructive Pulmonary Yes Disease (COPD) Pneumonia Yes Gastroesophageal Reflux Yes Disease Shingles Yes Surgical History: TAHBSO, appendectomy, cholecystectomy, arthroscopic procedure knee - Social History Smoking status: Former smoker Substance use type: does not use Current residence: Apartment/Private Home Medications Home Medications Medication Instructions Recorded Confirmed Type Meloxicam 15 mg PO DAILY PRN #0 03/14/11 07/19/17 History Gabapentin 600 mg PO HS #0 05/12/15 10/19/17 History Potassium Chloride 10 meq PO DAILY PRN #0 02/09/15 07/19/17 History Acetaminophen [Tylenol Extra 1,000 mg PO Q6H PRN #0 02/10/15 07/19/17 History Strength] Albuterol Sulfate [Ventolin Hfa] 1 puff INH DAILY PRN #0 06/12/16 07/19/17 History Citalopram Hydrobromide 10 mg PO DAILY #0 06/12/16 07/19/17 History [Citalopram HBr] Gabapentin 100 mg PO TID PRN #0 06/12/16 07/19/17 History Lansoprazole [Prevacid] 15 mg PO BID #0 06/12/16 07/19/17 History Allopurinol 100 mg PO DAILY #0 12/19/16 07/19/17 History Amox/Clav [Augmentin] 1 tab PO BID 07/19/17 07/19/17 History Furosemide [Lasix] 20 mg PO DAILY PRN 07/19/17 07/19/17 History LORazepam [Ativan] 0.5 mg PO HS PRN 07/19/17 07/19/17 History PredniSONE [Deltasone] 80 mg PO DAILY 07/19/17 07/19/17 History Promethazine + Dm Liq [Phenergan 5 ml PO Q4H PRN 07/19/17 07/19/17 History Dm Syrup] dilTIAZem HCl [Cartia Xt] 180 mg PO DAILY 07/19/17 07/19/17 History Allergies Allergy/AdvReac Type Severity Reaction Status Date / Time cefaclor Allergy Unknown Verified 07/19/17 16:41 Exam Vital signs: Temperature 96.9 F 07/20/17 14:50 Pulse Rate 67 07/20/17 14:50 Respiratory Rate 20 07/20/17 14:50 Blood Pressure 176/71 H 07/20/17 14:50 Pulse Oximetry 93 07/20/17 14:50 - Constitutional mild distress, obese - Routine HEENT Exam Head: Present: normocephalic, atraumatic Eye: Present: PERRL ENT: Present: mucous membranes moist - Routine Neck Exam Present: supple, full ROM - Routine Respiratory Exam Present: decreased breath sounds, wheezes - Routine Cardiovascular Exam Present: RRR, no murmur - Routine Abdominal Exam Present: soft, normoactive bowel sounds - Routine Extremities Exam Present: no edema, full ROM - Routine Back/Spine/Pelvis Exam Back/Spine: Present: full ROM - Routine Skin Exam Present: intact, dry - Routine Neurological Exam Present: alert, oriented X3, CN II-XII intact - Routine Psychiatric Exam Present: normal affect, normal thought process Results - Laboratory Findings CBC and BMP: 07/20/17 04:43 07/20/17 04:43 Abnormal lab findings: Abnormal Labs 07/20/17 07/20/17 04:43 04:43 RDW Std Deviation 51.4 H Neutrophils % (Manual) 85.0 H Lymphocytes % (Manual) 13.0 L Lymphocytes # (Manual) 0.9 L Chloride 110 H BUN 25.0 H BUN/Creatinine Ratio 31 H Glucose 129 H Calculated Osmolality 283 H Specimen Hemolysis 67 H - Diagnostic Findings Chest x-ray: image reviewed (as noted in HPI) Assessment and Plan - Assessment and Plan (1) Acute respiratory failure with hypoxia Current visit: Yes Status: Acute (2) COPD exacerbation Current visit: Yes Status: Acute (3) Community acquired pneumonia Current visit: Yes Status: Acute (4) Abnormal CT of the chest Problem details: Hx of lung nodules per patient, next CT to be in Oct/Nov Current visit: Yes Status: Acute - Assessment and Plan Pt currently on O2 at 2L per NC and tolerating (no O2 at home). On pulmicort BID , a/a QID and solumedrol 125mg q6hr. Will increase her A/A to q4hr, on levaquin daily, follow CXR. Hx of lung nodules, will need to f/u till stable for 2 yrs, which patient states nodules have been stable recently. Hx of recurrent pna's vs exacerbations, will check IgG level, if low may benefit from IVIG. She does have some seasonal allergies and instructed to start on tre/claritin/zyrtec OP as this can cause exacerbations. With her recurrent exacerbations she may also benefit from daliresp as OP. Will continue to follow. <Leodan Castanon - Last Filed: 07/20/17 18:42> [facility] Patient Stated Medical History Cataracts Yes Cardiac Arrhythmia Yes: A FIB Hypertension Yes Asthma Yes Bronchitis Yes Chronic Obstructive Pulmonary Yes Disease (COPD) Pneumonia Yes Gastroesophageal Reflux Yes Disease Shingles Yes Exam Vital signs: Temperature 96.9 F 07/20/17 14:50 Pulse Rate 67 07/20/17 14:50 Respiratory Rate 18 07/20/17 17:47 Blood Pressure 176/71 H 07/20/17 14:50 Pulse Oximetry 91 07/20/17 17:47 Results - Laboratory Findings CBC and BMP: 07/20/17 04:43 07/20/17 04:43 Abnormal lab findings: Abnormal Labs 07/20/17 07/20/17 07/20/17 04:38 04:43 04:43 RDW Std Deviation 51.4 H Neutrophils % (Manual) 85.0 H Lymphocytes % (Manual) 13.0 L Lymphocytes # (Manual) 0.9 L Chloride 110 H BUN 25.0 H BUN/Creatinine Ratio 31 H Glucose 129 H Calculated Osmolality 283 H Specimen Hemolysis 67 H IgG 311.84 L Assessment and Plan - Assessment and Plan I have examined this patient and the notes transcribed by Ramiro Byrne represent my findings and recommendations. RML pneumonia as the cause for her COPD exacerbation and acute respiratory failure. 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 Addendum entered and electronically signed by Shantel Byrne APRN 16:01: Leg/strep urine antigen Pending, sputum cx pending, check RVP
[2017-07-20] MEDS: ALBUTEROL/IPRATROPIUM 2.5mg-0.5mg/3ml NEB AEROSOL SCH ×3 (17:46→23:38)
[2017-07-20] MEDS ORDERED: ALBUTEROL/IPRATROPIUM 2.5mg-0.5mg/3ml NEB AEROSOL SCH (19:00)
[2017-07-20] MEDS ORDERED: LEVOFLOXACIN 500 MG TABLET PO SCH (20:00)
[2017-07-20] MEDS: GABAPENTIN 600 MG TABLET PO SCH (20:33)
[2017-07-21] MEDS: ALBUTEROL/IPRATROPIUM 2.5mg-0.5mg/3ml NEB AEROSOL SCH ×6 (03:02→20:25)
[2017-07-21] MEDS: METHYLPREDNISOLONE SOD SUCC 125mg/2ml INJECTION IVP SCH ×4 (03:26→21:36)
[2017-07-21] MEDS: ACETAMINOPHEN 325 MG TABLET PO PRN ×3 (03:27→16:11)
[2017-07-21] MEDS: GUAIFENESIN/CODEINE 5ml ORAL LIQUID PO PRN (06:20)
[2017-07-21] MEDS: BUDESONIDE INH.SOLN 0.5mg/2ml NEB AEROSOL SCH ×3 (07:40→20:25)
[2017-07-21] MEDS: SALINE FLUSH 10ml SYRINGE IVF PRN ×2 (09:45→21:35)
[2017-07-21] MEDS: ALLOPURINOL 100 MG TABLET PO SCH (09:46)
[2017-07-21] MEDS: LANSOPRAZOLE SOLU-TAB 15 MG TABLET PO SCH ×2 (09:47→21:36)
[2017-07-21] MEDS: CITALOPRAM 10 MG TABLET PO SCH (09:48)
[2017-07-21] MEDS: ENOXAPARIN 40 MG/0.4 ML INJECTION SQ SCH (09:48)
--- NOTE | 2017-07-21 15:21 | Progress Note ---
- Date 07/21/17 Subjective: The patient was seen at 1500 with her brother and family at bedside. She reports she is doing well. She feels like her breathing is somewhat better. She asks when she can go off the IVC Solu-Medrol. She slept well. She required pain medications last evening for headache, no complaints of headache at this time. She remains on 2 L nasal cannula. She denies any cough. Objective Vital signs: Temperature 97.6 F 07/21/17 07:44 Pulse Rate 73 07/21/17 08:58 Respiratory Rate 20 07/21/17 12:40 Blood Pressure 178/70 H 07/21/17 14:46 Pulse Oximetry 2 L 07/21/17 07:44 Height/Weight/BMI: Height 5 ft 2 in Weight 186 lb 8.177 oz Body Mass Index 34.4 - Additional findings Additional findings: In general, the patient is alert and oriented 3, cooperative with exam, and in mild respiratory distress. HEENT: Head is atraumatic, normocephalic, no conjunctival petechiae, no oral thrush Lungs: Decreased breath sounds without wheezes, crackles or rhonchi CV: Regular rate and rhythm without murmur Abdomen: Soft, nontender, bowel sounds are present, there is no guarding no rebound. Extremities: No clubbing, no cyanosis, no edema. Skin: Warm and dry no sign of rash Neuro: Patient is alert IV access: Left Antecubital Results - Labs CBC & Chem 7: 07/21/17 04:41 07/21/17 04:41 Labs: Laboratory Tests 07/20/17 04:38 IgG 311.84 L Microbiology Results: Microbiology 07/20/17 10:10 Peripheral/Iv Start Blood Culture - Preliminary No Growth After 1 Day 07/20/17 11:55 Urine Legionella Urinary Antigen - Final 07/20/17 11:55 Urine Streptococcus pneumoniae Antigen (M - Final Apparently a nasopharyngeal swab did not make it to the laboratory - Imaging and Cardiology Chest x-ray Status: image reviewed by me Additional comments: Persistent right middle lobe infiltrate Assessment and Plan (1) COPD exacerbation Current visit: Yes Status: Acute 07/19/17 20:25 solumedrol, albuterol prn , duoneb, ivf, labs would not inform that this is hypercapnea. reassess in am. discussed with patient this will be along term process of healing. (2) Community acquired pneumonia Current visit: Yes Status: Acute 07/19/17 20:26 levaquin (higher risk for psuedomonas and as such quinalone to start with). cx ordered in ed (3) Acute respiratory failure with hypoxia Current visit: Yes Status: Acute 07/19/17 20:26 related to # 1 and #2, chronically on 2 at night . on 3.5 now. monitor and should improve as copd is improved and pneumonia treated (4) Atrial fibrillation Current visit: Yes Status: Acute 07/19/17 20:27 not presenot on admission. at high risk of reocuring with acute illness, admit to tele as a precaution. continue cardiazem. asa, apparently is not anticoagulated currently (5) GERD (gastroesophageal reflux disease) Current visit: Yes Status: Acute 07/19/17 20:28 continue PPI Assessment and Plan: Impression: COPD exacerbation, on 2 L of O2 by nasal cannula at night as baseline, with a right middle lobe infiltrate seen on chest x-ray. Hypogammaglobulinemia History of atrial fibrillation-normal sinus rhythm on monitor GERD Immunization status which cannot be corrected until the patient is on less than 20 mg of prednisone daily Plan: Appreciate Dr. Castanon's help. Continue IV Solu-Medrol Continue levofloxacin for 5 days total Previous antibiotic use may decrease the chance of isolating a pathogen in her cultures. Continue the patient on her Cardizem for her atrial fibrillation, she is not on other anticoagulation other than an aspirin at home. Currently she is receiving enoxaparin. With consult Dr. Windy Lindsay on Sunday to evaluate the patient for possible IV immunoglobulin secondary to her hypogammaglobulinemia.. Hospital Course Summary Disclaimer: The visit summary below is not to be considered part of the above Progress Note.
[2017-07-21] MEDS: FUROSEMIDE 20 MG/2 ML INJECTION IVP SCH (16:06)
[2017-07-21] MEDS: AMLODIPINE 5 MG TABLET PO SCH (16:26)
[2017-07-21] MEDS: CLOTRIMAZOLE 10 MG TROCHE MM SCH ×2 (19:49→21:37)
[2017-07-21] MEDS: LEVOFLOXACIN 500 MG TABLET PO SCH (20:22)
[2017-07-21] MEDS: GABAPENTIN 600 MG TABLET PO SCH (21:36)
[2017-07-21] MEDS ORDERED: DiltiaZEM 25 MG/5 ML INJECTION IVP ONE (22:12)
[2017-07-22] MEDS: METHYLPREDNISOLONE SOD SUCC 125mg/2ml INJECTION IVP SCH ×4 (03:19→20:28)
[2017-07-22] MEDS: SALINE FLUSH 10ml SYRINGE IVF PRN ×3 (03:20→08:15)
[2017-07-22] MEDS: ALBUTEROL/IPRATROPIUM 2.5mg-0.5mg/3ml NEB AEROSOL SCH ×5 (04:20→20:45)
[2017-07-22] MEDS: BUDESONIDE INH.SOLN 0.5mg/2ml NEB AEROSOL SCH ×5 (04:20→20:52)
[2017-07-22] MEDS: LORazepam 0.5 MG TABLET PO PRN ×2 (05:09→23:03)
[2017-07-22] MEDS ORDERED: METOPROLOL 5mg/5ml INJECTION IVP ONE (07:51)
[2017-07-22] MEDS: ALLOPURINOL 100 MG TABLET PO SCH (08:14)
[2017-07-22] MEDS: CLOTRIMAZOLE 10 MG TROCHE MM SCH ×5 (08:15→20:27)
[2017-07-22] MEDS: CITALOPRAM 10 MG TABLET PO SCH (08:15)
[2017-07-22] MEDS: LANSOPRAZOLE SOLU-TAB 15 MG TABLET PO SCH ×3 (08:15→20:27)
[2017-07-22] MEDS: DiltiaZEM Drip 125 MG in NS 125 ML IV SCH ×3 (08:21→17:38)
[2017-07-22] MEDS: AMLODIPINE 5 MG TABLET PO SCH (08:26)
[2017-07-22] MEDS ORDERED: AMIODARONE 150 MG in NS 100 ML IV ONE (09:10)
--- NOTE | 2017-07-22 09:13 | Progress Note ---
- Date 07/22/17 Objective Vital signs: Temperature 98.2 F 07/22/17 04:15 Pulse Rate 96 07/22/17 07:00 Respiratory Rate 16 07/22/17 07:19 Blood Pressure 141/65 H 07/22/17 07:00 Pulse Oximetry 94 07/22/17 07:19 Height/Weight/BMI: Height 1.57 m Weight 84.3 kg Body Mass Index 34.4 Results - Labs CBC & Chem 7: 07/21/17 04:41 07/22/17 03:54 Microbiology Results: Microbiology 07/20/17 10:10 Peripheral/Iv Start Blood Culture - Preliminary No Growth After 1 Day 07/20/17 11:55 Urine Legionella Urinary Antigen - Final 07/20/17 11:55 Urine Streptococcus pneumoniae Antigen (M - Final Assessment and Plan Assessment and Plan: Impression: COPD exacerbation, on 2 L of O2 by nasal cannula at night as baseline, with a right middle lobe infiltrate seen on chest x-ray. Hypogammaglobulinemia History of atrial fibrillation-normal sinus rhythm on monitor GERD Immunization status which cannot be corrected until the patient is on less than 20 mg of prednisone daily Plan: Appreciate Dr. Castanon's help. Continue IV Solu-Medrol Continue levofloxacin for 5 days total Previous antibiotic use may decrease the chance of isolating a pathogen in her cultures. Continue the patient on her Cardizem for her atrial fibrillation, she is not on other anticoagulation other than an aspirin at home. Currently she is receiving enoxaparin. With consult Dr. Windy Lindsay on Sunday to evaluate the patient for possible IV immunoglobulin secondary to her hypogammaglobulinemia.. Hospital Course Summary Disclaimer: The visit summary below is not to be considered part of the above Progress Note.
[2017-07-22] MEDS ORDERED: AMIODARONE 900 MG in NS 500ml 500 ML IV SCH ×2 (09:15→15:15)
--- NOTE | 2017-07-22 10:13 | Cardiology Consult Note ---
<Blanca Peter - Last Filed: 07/23/17 08:55> History of Present Illness Consult date: 07/22/17 Requesting physician: Heron Carson Consult reason: atrial fibrillation Chief complaint: AFib RVR History of present illness: Delma is a 76 year old female who is new to Dr. Lind's practice with a history of COPD oxygen at night dependent 2l. She reported increased dyspnea over the past 2 weeks. She has seen her PCP who has escalated her treatment to include 80 mg prednisone daily with nebulized therapy. Her symptoms have progressed and she is brought to the ED and found to be more hypoxic. CXR suggests right middle lobe pneumonia. She has a cough that is persistent and at times productive of yellow sputum. She is currently on Augmentin. and has remarkable dyspnea with any activity. Last night around 2229 she was noted to have increased heart rate which telemetry reported to be atrial fibrillation, EKG was not obtained but patient was given Cardizem IVP and transferred to CCU for Cardizem drip. This morning Dr. Lind was consulted and she was given a IVP Metoprolol 5mg for rate control. Amiodarone bolus and drip is started at this time. Discussed at length with Delma and her daughter the diagnosis and prognosis and plan for conversion with medication, if unsuccessful, conversion with DCCV tomorrow. She is examined in her room in CCU with her daughter at the bedside. She denies chest pain or pressure, her breathing is stable with no acute distress, on 4L/ NC. Review of Systems - Constitutional Constitutional: Absent: chills, fever(s) - EENMT Eyes: Absent: change in vision Balance: Absent: vertigo Mouth/Throat: Absent: sore throat - Cardiovascular Cardiovascular: Present: dyspnea on exertion. Absent: chest pain, palpitations Vascular: Present: pedal edema - Respiratory Respiratory: Present: cough, dyspnea, dyspnea on exertion, chest congestion - Gastrointestinal Gastrointestinal: Absent: abdominal pain, diarrhea, nausea, vomiting - Genitourinary Genitourinary: Absent: dysuria - Integumentary/Breasts Integumentary: Absent: rash - Neurological Neurological: Absent: dizziness - Endocrine Endocrine: Absent: palpitations PFSH Patient Stated Medical History Cataracts Yes Cardiac Arrhythmia Yes: A FIB Hypertension Yes Asthma Yes Bronchitis Yes Chronic Obstructive Pulmonary Yes Disease (COPD) Pneumonia Yes Gastroesophageal Reflux Yes Disease Shingles Yes Surgical History: TAHBSO, appendectomy, cholecystectomy, arthroscopic procedure knee Family History: Father - CABG in 70s, ETOH abuse, Mother- of cancer Brother- of cancer Sister- DM Daughter- sudden cardiac in her 50s - Social History Smoking status: Former smoker Alcohol intake frequency: holidays/special occasions only Current occupational status: retired Current residence: Apartment/Private Home Medications Home Medications Medication Instructions Recorded Confirmed Type Meloxicam 15 mg PO DAILY PRN #0 03/14/11 07/19/17 History Gabapentin 600 mg PO HS #0 02/09/15 07/19/17 History Potassium Chloride 10 meq PO DAILY PRN #0 02/09/15 07/19/17 History Acetaminophen [Tylenol Extra 1,000 mg PO Q6H PRN #0 02/10/15 07/19/17 History Strength] Albuterol Sulfate [Ventolin Hfa] 1 puff INH DAILY PRN #0 06/12/16 07/19/17 History Citalopram Hydrobromide 10 mg PO DAILY #0 06/12/16 07/19/17 History [Citalopram HBr] Gabapentin 100 mg PO TID PRN #0 06/12/16 07/19/17 History Lansoprazole [Prevacid] 15 mg PO BID #0 06/12/16 07/19/17 History Allopurinol 100 mg PO DAILY #0 12/19/16 07/19/17 History Amox/Clav [Augmentin] 1 tab PO BID 07/19/17 07/19/17 History Furosemide [Lasix] 20 mg PO DAILY PRN 07/19/17 07/19/17 History LORazepam [Ativan] 0.5 mg PO HS PRN 07/19/17 07/19/17 History PredniSONE [Deltasone] 80 mg PO DAILY 07/19/17 07/19/17 History Promethazine + Dm Liq [Phenergan 5 ml PO Q4H PRN 07/19/17 07/19/17 History Dm Syrup] dilTIAZem HCl [Cartia Xt] 180 mg PO DAILY 07/19/17 07/19/17 History Allergies Allergy/AdvReac Type Severity Reaction Status Date / Time cefaclor Allergy Unknown Verified 07/19/17 16:41 Exam Vital signs: Temperature 98.2 F 07/22/17 04:15 Pulse Rate 86 07/22/17 08:00 Respiratory Rate 16 07/22/17 07:19 Blood Pressure 141/65 H 07/22/17 07:00 Pulse Oximetry 94 07/22/17 07:19 - Constitutional no acute distress, well nourished, well developed, cooperative - Routine HEENT Exam Head: Present: normocephalic ENT: Present: mucous membranes dry - Routine Neck Exam Absent: JVD, carotid bruit - Routine Chest/Breast/Axilla Exam Chest wall: Absent: tenderness - Routine Respiratory Exam Present: rhonchi (throughout). Absent: CTA bilaterally - Routine Cardiovascular Exam Present: no murmur, irregular rhythm. Absent: JVD - Routine Abdominal Exam Present: soft, normoactive bowel sounds - Routine Extremities Exam Present: edema, pulses intact - Routine Skin Exam Present: intact, dry, warm - Routine Neurological Exam Present: alert, oriented X3 - Routine Psychiatric Exam Present: normal affect, normal thought process Results 07/23/17 03:55 07/23/17 03:55 Cardiac Enzymes 07/22/17 07/22/17 Range/Units 00:26 03:54 Troponin I 0.020 D 0.024 (0-0.12) ng/ml Comprehensive Metabolic Panel 07/22/17 Range/Units 03:54 Sodium 145 H (134-144) MEQ/L Potassium 3.5 L (3.6-5) MEQ/L Chloride 106 (98-107) MEQ/L Carbon Dioxide 29 (22-30) MEQ/L BUN 28.0 H (7-17) MG/DL Creatinine 0.9 (0.7-1.2) MG/DL Glucose 152 H (65-110) MG/DL Calcium 9.7 (8.4-10.2) MG/DL Intake and Output 07/21/17 07/22/17 07/22/17 22:59 06:59 14:59 Intake Total 740 / 740 80.416 / 80.416 35.25 / 35.25 Output Total 1300 / 1300 1800 / 1800 200 / 200 Balance -560 / -560 -1719.584 / -1719.584 -164.75 / -164.75 Intake: IV 80.416 / 80.416 35.25 / 35.25 DiltiaZEM Drip 125 mg In 80.416 / 80.416 35.25 / 35.25 Ns 125 ml @ 5 mls/hr IV . Q24H [facility] Rx#:[id number] Oral 740 / 740 Output: Urine 1300 / 1300 1800 / 1800 200 / 200 Other: Urine Appearance Clear Clear Urine Color Yellow Pale Yellow Urine Odor Normal Normal Weight 185 lb 13.595 oz Abnormal Lab Results 07/22/17 07/22/17 00:26 03:54 Turbidity < 20 Sodium 145 H Potassium 3.5 L Chloride 106 Carbon Dioxide 29 Anion Gap 10 BUN 28.0 H Creatinine 0.9 GFR Calculation 61 BUN/Creatinine Ratio 31 H Glucose 152 H Calculated Osmolality 288 H Calcium 9.7 Icterus Index < 2 Troponin I 0.020 D 0.024 Specimen Hemolysis 49 H 16 - Imaging and Cardiology Echo: pending EKG results: image reviewed Imaging & Cardiology Narrative: Date of Exam: 07/19/17 Ordering Provider: Cherrie Elizondo APRN Type of Exam(s): XR chest 2V Reason for Exam(s): dyspnea INDICATION: dyspnea PROCEDURE: CHEST 2-VIEWS UPRIGHT (PA & LAT) Encounter: Initial COMPARISON: Chest CT dated January 11, 2017 and chest x-ray dated December 31, 2016 FINDINGS: New airspace consolidation in the right middle lobe with obscuration of the right heart border. Left lung appears clear. There is no pleural effusion or pneumothorax. The heart size, mediastinal contours and pulmonary vascularity are within normal limits. There is no significant skeletal abnormality. IMPRESSION: Right middle lobe pneumonia or atelectasis. EKG interpretations - EKG EKG shows: atrial fibrillation - Blocks, axis, hypertrophy, ST abn Repolarization changes or abnormalities: nonspecific abnormality, ST segment, and/or T wave Assessment and Plan - Assessment and Plan (1) COPD exacerbation Current visit: Yes Status: Acute (2) Community acquired pneumonia Current visit: Yes Status: Acute (3) Acute respiratory failure with hypoxia Current visit: Yes Status: Acute (4) Atrial fibrillation with RVR Current visit: Yes Status: Acute Admit to CCU - EKG now - Cardizem drip, titrate to keep rate 100 - Home po Cardizem given - Amiodarone bolus and drip for antiarrhythmic therapy - EKG in am - Echo in am - monitor cardiac telemetry - If not converted, DCCV tomorrow afternoon - NPO after breakfast tomorrow. I examined the patient independently, review the chart and discussed finding with Dr. Lind. He agrees with the plan of care. Thank you for allowing us to participate in your patient's care, we will follow along with you. Hospital Course Summary Disclaimer: The visit summary below is not to be considered part of the above Progress Note. <Arsalan Lind - Last Filed: 07/24/17 08:33> [facility] Patient Stated Medical History Cataracts Yes Cardiac Arrhythmia Yes: A FIB Hypertension Yes Asthma Yes Bronchitis Yes Chronic Obstructive Pulmonary Yes Disease (COPD) Pneumonia Yes Gastroesophageal Reflux Yes Disease Shingles Yes Exam Vital signs: Temperature 96.1 F L 07/24/17 07:00 Pulse Rate 74 07/24/17 07:00 Respiratory Rate 20 07/24/17 07:00 Blood Pressure 139/73 07/24/17 07:00 Pulse Oximetry 93 07/24/17 07:00 Results 07/24/17 05:33 07/24/17 05:33 CBC 07/24/17 Range/Units 05:33 WBC 7.5 (4.5-11.0) T/MM3 RBC 4.49 (4.00-5.20) M/MM3 Hgb 13.0 (12-16) GM/DL Hct 39.9 (36-46) % Plt Count 195 (130-400) T/MM3 Neut # (Auto) Not performed Lymph # (Auto) Not performed [place] # (Auto) Not performed Eos # (Auto) Not performed Baso # (Auto) Not performed Comprehensive Metabolic Panel 07/24/17 Range/Units 05:33 Sodium 137 (134-144) MEQ/L Potassium 3.8 (3.6-5) MEQ/L Chloride 98 (98-107) MEQ/L Carbon Dioxide 26 (22-30) MEQ/L BUN 34.0 H (7-17) MG/DL Creatinine 0.9 (0.7-1.2) MG/DL Glucose 138 H (65-110) MG/DL Calcium 8.5 (8.4-10.2) MG/DL Intake and Output 07/23/17 07/24/17 07/24/17 22:59 06:59 14:59 Intake Total 740 / 740 240 / 240 Balance 740 / 740 240 / 240 Intake: Oral 740 / 740 240 / 240 Other: Urine Appearance Clear Urine Color Yellow Urine Odor Normal # Voids 1 Weight 86.6 kg Patient Weight 07/25/17 06:59 Weight 86.6 kg Assessment and Plan - Attestation Attestation Narrative: 07/24/17 08:32 Recommendation After examining the patient I agree with the above assessment. I am involved in the formulation of the patient's plan of care. - Assessment and Plan (1) COPD exacerbation Current visit: Yes Status: Acute (2) Community acquired pneumonia Current visit: Yes Status: Acute (3) Acute respiratory failure with hypoxia Current visit: Yes Status: Acute (4) Atrial fibrillation with RVR Current visit: Yes Status: Acute Hospital Course Summary Disclaimer: The visit summary below is not to be considered part of the above Progress Note.
[2017-07-22] MEDS: ENOXAPARIN 40 MG/0.4 ML INJECTION SQ SCH (10:43)
--- NOTE | 2017-07-22 10:47 | Progress Note ---
- Date 07/22/17 Subjective: Patient resting comfortably in CCU. She was transferred there last night when heart rate became very rapid as atrial fibrillation deteriorated and RVR began. Denies any chest pain or shortness of breath. No nausea or vomiting. Objective Vital signs: Temperature 98.2 F 07/22/17 04:15 Pulse Rate 86 07/22/17 08:00 Respiratory Rate 16 07/22/17 07:19 Blood Pressure 141/65 H 07/22/17 07:00 Pulse Oximetry 94 07/22/17 07:19 Height/Weight/BMI: Height 1.57 m Weight 84.3 kg Body Mass Index 34.4 Comments: Atrial fibrillation with RVR. Rate is intermittent between 90 and 110. - Routine HEENT Exam Head: Present: normocephalic Eye: Present: EOMI - Routine Cardiovascular Exam Present: irregular rhythm, irregularly irregular - Routine Abdominal Exam Present: soft, normoactive bowel sounds, non distended, non tender Results - Labs CBC & Chem 7: 07/21/17 04:41 07/22/17 03:54 Microbiology Results: Microbiology 07/20/17 10:10 Peripheral/Iv Start Blood Culture - Preliminary No Growth After 2 Days 07/20/17 11:55 Urine Legionella Urinary Antigen - Final 07/20/17 11:55 Urine Streptococcus pneumoniae Antigen (M - Final Assessment and Plan Assessment and Plan: Impression: COPD exacerbation, on 2 L of O2 by nasal cannula at night as baseline, with a right middle lobe infiltrate seen on chest x-ray. Pneumonia, Treated with levofloxacin currently Hypogammaglobulinemia History of atrial fibrillation, RVR overnight and transferred to CCU. GERD Immunization status which cannot be corrected until the patient is on less than 20 mg of prednisone daily Plan: Appreciate Dr. Castanon's help. Continue IV Solu-Medrol Continue levofloxacin for 5 days total Spoke with cardiology. Patient only anticoagulated with Lovenox. Amiodarone used to treat A. fib with RVR. EKG is ordered for a.m. to ensure no prolongation of QT. With consult Dr. Windy Lindsay on Sunday to evaluate the patient for possible IV immunoglobulin secondary to her hypogammaglobulinemia.. Heron Carson M.D. Hospital Course Summary Disclaimer: The visit summary below is not to be considered part of the above Progress Note. Hospital Course: 07/22/17 10:51 07/22/2017 Impression: COPD exacerbation, on 2 L of O2 by nasal cannula at night as baseline, with a right middle lobe infiltrate seen on chest x-ray. Pneumonia, Treated with levofloxacin currently Hypogammaglobulinemia History of atrial fibrillation, RVR overnight and transferred to CCU. GERD Immunization status which cannot be corrected until the patient is on less than 20 mg of prednisone daily Plan: Appreciate Dr. Castanon's help. Continue IV Solu-Medrol Continue levofloxacin for 5 days total Spoke with cardiology. Patient only anticoagulated with Lovenox. Amiodarone used to treat A. fib with RVR. EKG is ordered for a.m. to ensure no prolongation of QT. With consult Dr. Windy Lindsay on Sunday to evaluate the patient for possible IV immunoglobulin secondary to her hypogammaglobulinemia.. Heron Carson M.D.
--- NOTE | 2017-07-22 10:59 | XRay Report ---
INDICATION: follow-up right middle lobe pneumonia PROCEDURE: CHEST 2-VIEWS UPRIGHT (PA & LAT) Encounter: Initial COMPARISON: July 19, 2017 FINDINGS: Right middle lobe airspace consolidation is grossly stable. No new areas of airspace disease. No pleural effusion or pneumothorax. Heart size, pulmonary vascularity and mediastinal contours are stable. Impression: Stable right middle lobe pneumonia. .
[2017-07-22] MEDS: ENOXAPARIN 100 MG/ML INJECTION SQ SCH ×2 (11:25→20:28)
[2017-07-22] MEDS: ACETAMINOPHEN 325 MG TABLET PO PRN (14:33)
[2017-07-22] MEDS: FUROSEMIDE 20 MG/2 ML INJECTION IVP SCH (17:06)
[2017-07-22] MEDS: LEVOFLOXACIN 500 MG TABLET PO SCH (20:26)
[2017-07-22] MEDS: GABAPENTIN 600 MG TABLET PO SCH (20:27)
[2017-07-23] MEDS: ALBUTEROL/IPRATROPIUM 2.5mg-0.5mg/3ml NEB AEROSOL SCH ×7 (00:02→20:45)
[2017-07-23] MEDS: DiltiaZEM Drip 125 MG in NS 125 ML IV SCH (00:17)
[2017-07-23] MEDS: METHYLPREDNISOLONE SOD SUCC 125mg/2ml INJECTION IVP SCH ×4 (03:51→21:07)
[2017-07-23] MEDS: ACETAMINOPHEN 325 MG TABLET PO PRN (04:52)
[2017-07-23] MEDS: BUDESONIDE INH.SOLN 0.5mg/2ml NEB AEROSOL SCH ×3 (06:59→20:46)
--- NOTE | 2017-07-23 09:00 | Pulmonology Progress Note ---
Subjective Principal diagnosis: COPD exacerbation Interval history: Pt in bed, states she still gets SOB with ambulation, + cough with minimal sputum. No distress noted at this time, still on O2 at 4L. Exam Vital signs: Temperature 98.1 F 07/23/17 07:30 Pulse Rate 66 07/23/17 08:00 Respiratory Rate 38 H 07/23/17 07:30 Blood Pressure 163/70 H 07/23/17 07:01 Pulse Oximetry 93 07/23/17 07:30 - Constitutional no acute distress, obese - Routine HEENT Exam Head: Present: normocephalic, atraumatic Eye: Present: EOMI, PERRL - Routine Neck Exam Present: supple, full ROM - Routine Respiratory Exam Present: dyspnea, rhonchi - Routine Cardiovascular Exam Present: RRR, no murmur - Routine Abdominal Exam Present: soft, normoactive bowel sounds - Routine Extremities Exam Present: no edema, non tender, full ROM - Routine Back/Spine/Pelvis Exam Back/Spine: Present: full ROM - Routine Skin Exam Present: intact, dry - Routine Neurological Exam Present: alert, oriented X3, CN II-XII intact - Routine Psychiatric Exam Present: normal affect, normal thought process Progress Note-A&P - Time Spent With Patient Total time spent is greater than 50% in coordination of care (as documented) at patient's floor/unit and/or counseling patient: less than 15 minutes (1) Acute respiratory failure with hypoxia Status: Acute Current Visit: Yes (2) COPD exacerbation Status: Acute Current Visit: Yes (3) Community acquired pneumonia Status: Acute Current Visit: Yes (4) Abnormal CT of the chest Problem details: Hx of lung nodules per patient, next CT to be in Oct/Nov Status: Acute Current Visit: Yes - Assessment and Plan Pt currently on O2 at 4L per NC, uses 2L O2 at home. CXR yesterday showed some improvement in RML infiltrates from 07/19. Still on BT's with pulmicort BID, A/ A q4hr, solumedrol 125 q6 and levaquin. Currently SR but on amio gtt for Afib, currently getting 2D echo. IgG on admit 311, will likely need to f/u with ID OP for IVIG. Continue to follow, will wean solumedrol and monitor.
[2017-07-23] MEDS: CITALOPRAM 10 MG TABLET PO SCH (09:30)
[2017-07-23] MEDS: AMLODIPINE 5 MG TABLET PO SCH (09:30)
[2017-07-23] MEDS: ALLOPURINOL 100 MG TABLET PO SCH (09:30)
[2017-07-23] MEDS: CLOTRIMAZOLE 10 MG TROCHE MM SCH ×5 (09:31→21:28)
[2017-07-23] MEDS: ENOXAPARIN 100 MG/ML INJECTION SQ SCH (09:31)
[2017-07-23] MEDS: LANSOPRAZOLE SOLU-TAB 15 MG TABLET PO SCH ×2 (09:31→21:12)
--- NOTE | 2017-07-23 10:16 | Infectious Disease Consult ---
Infectious Disease Consult Date of Consultation: 07/23/17 Requesting Physician: Ruth Shaffer Reason for Consultation: hypogammaglobulinemia History of Present Illness: Ms. Marcum is a 76 y/o woman who was admitted here on 07/19 for dyspnea. She has a h/o COPD for a long time and is on 2 L of oxygen nocturnally at home normally. Over the last 2 weeks, she had been using up to 4 L of oxygen on a daily basis during the day as well as at night. Because of her increased shortness of breath, she has seen Dr. Jacome every week. The first week, she received a steroid injection, the second week she received a steroid injection as well as starting on prednisone 80 mg by mouth daily with a taper that would have started the day of admission. She also was started on amoxicillin clavulanate 875 mg by mouth twice a day the week of admission as well. She reports she has had no fevers, no chills, no night sweats, she has had more dyspnea on exertion but she can still walk a block or 2 before she has to stop to catch her breath. She has had a dry cough with occasional yellow sputum, no blood in her sputum, she has had no chest pain no pain with inspiration. She called her doctor's office the day prior to admission because of persistent shortness of breath, she was advised to go to the hospital as there is nothing else they can do for her as an outpatient. Her O2 sat was 95% on 2 L. Her respiratory rate was 24, her temperature is 96.4. Her chest x-ray was reviewed and shows a right middle lobe pneumonia vs atelectasis. She was admitted for further therapy and started on IV Solu-Medrol and levofloxacin. Per records, her O2 requirements have decreased from 4L to 2L. She tells me that she doesn' t feel any better yet. She was noted to be in A fib with RVR and started on cardizem drip, and this was changed to amio drip. Dr. Gomez is following. One blood culture was obtained on admission and is NGTD. She can't produce any sputum. Urine Legionella and S. pneumo antigens are negative. RVP was negative. Her IgG was checked and was found to be low at 311. She reports that she seems to get pneumonia every 6 months. She has occasionally had some sinus problems, but reports most of her problems involve bronchitis or pneumonia. I' ve been asked to see her regarding her low IgG level. Medications Home Medications Medication Instructions Recorded Confirmed Type Meloxicam 15 mg PO DAILY PRN #0 03/14/11 07/19/17 History Gabapentin 600 mg PO HS #0 02/09/15 07/19/17 History Potassium Chloride 10 meq PO DAILY PRN #0 02/09/15 07/19/17 History Acetaminophen [Tylenol Extra 1,000 mg PO Q6H PRN #0 02/10/15 07/19/17 History Strength] Albuterol Sulfate [Ventolin Hfa] 1 puff INH DAILY PRN #0 06/12/16 07/19/17 History Citalopram Hydrobromide 10 mg PO DAILY #0 06/12/16 07/19/17 History [Citalopram HBr] Gabapentin 100 mg PO TID PRN #0 06/12/16 07/19/17 History Lansoprazole [Prevacid] 15 mg PO BID #0 06/12/16 07/19/17 History Allopurinol 100 mg PO DAILY #0 12/19/16 07/19/17 History Amox/Clav [Augmentin] 1 tab PO BID 07/19/17 07/19/17 History Furosemide [Lasix] 20 mg PO DAILY PRN 07/19/17 07/19/17 History LORazepam [Ativan] 0.5 mg PO HS PRN 07/19/17 07/19/17 History PredniSONE [Deltasone] 80 mg PO DAILY 07/19/17 07/19/17 History Promethazine + Dm Liq [Phenergan 5 ml PO Q4H PRN 07/19/17 07/19/17 History Dm Syrup] dilTIAZem HCl [Cartia Xt] 180 mg PO DAILY 07/19/17 07/19/17 History Allergies Allergy/AdvReac Type Severity Reaction Status Date / Time cefaclor Allergy Unknown Verified 07/19/17 16:41 PFS Patient Stated Medical History Cataracts Yes Cardiac Arrhythmia Yes: A FIB Hypertension Yes Asthma Yes Bronchitis Yes Chronic Obstructive Pulmonary Yes Disease (COPD) Pneumonia Yes Gastroesophageal Reflux Yes Disease Shingles Yes Recurrent bronchitis/pneumonia Surgical History: TAHBSO, appendectomy, cholecystectomy, arthroscopic procedure knee Family History: Her father at the age of 78 from an ND Mother age 61 oat cell carcinoma - Social History Smoking status: Former smoker Current residence: Apartment/Private Home Social history: She is she lives alone. She helps take care of her 25-year-old grandson with Down syndrome. She smoked from age 19 until age 50 about 1 pack per day, and she resumed smoking about 2 years ago for a short period of time about 6 months only 2-3 cigarettes a day after the sudden of her 54-year-old daughter from cardiac disease and obesity. Immunizations: She has had a shingles vaccine and she believes she's had a Prevnar vaccine she' s not sure if she's had a pneumococcal vaccine 23 Valent Because of her recent requirements are high doses of steroids, she has not had a flu vaccine for this year yet and will need when when her prednisone dose is less than 20 mg. In addition she will need to T data when her prednisone has been tapered as well. Review of Systems All systems PM: 10-point ROS was reviewed, no additional remarkable complaints except - Constitutional Constitutional: Absent: chills, fever(s) - EENMT Eyes: Absent: change in vision Mouth/Throat: Absent: sore throat - Cardiovascular Cardiovascular: Absent: chest pain - Respiratory Respiratory: Present: cough (non-productive), dyspnea, dyspnea on exertion, wheezing - Gastrointestinal Gastrointestinal: Absent: abdominal pain, diarrhea, nausea, vomiting - Genitourinary Genitourinary: Absent: dysuria - Musculoskeletal Musculoskeletal: Present: arthralgias (chronic). Absent: myalgias - Integumentary/Breasts Integumentary: Absent: erythema, rash - Neurological Neurological: Absent: headache(s) Exam Vital Signs: Temperature 98.1 F 07/23/17 07:30 Pulse Rate 71 07/23/17 10:00 Respiratory Rate 38 H 07/23/17 10:00 Blood Pressure 133/60 07/23/17 09:00 Pulse Oximetry 94 07/23/17 10:00 Height/Weight/BMI: Height 1.57 m Weight 85.5 kg Body Mass Index 34.4 - Constitutional Present: no acute distress, obese - Routine HEENT Exam Head: Present: normocephalic, atraumatic Eye: Present: EOMI, PERRL ENT: Present: mucous membranes moist, dentition normal - Routine Neck Exam Present: supple - Routine Respiratory Exam Present: decreased breath sounds (bilaterally). Absent: accessory muscle use, wheezes Comments: On O2 - Routine Cardiovascular Exam Present: RRR. Absent: murmur - Routine Abdominal Exam Present: soft, normoactive bowel sounds, non distended, non tender. Absent: rebound, guarding - Routine Extremities Exam Absent: cyanosis, clubbing, edema - Routine Skin Exam Absent: intact, erythema, rash - Routine Neurological Exam Present: alert, oriented X3, CN II-XII intact. Absent: motor deficit - Routine Psychiatric Exam Present: normal affect Results - Labs CBC & Chem 7: 07/23/17 03:55 07/23/17 03:55 Microbiology Results: Microbiology 07/20/17 10:10 Peripheral/Iv Start Blood Culture - Preliminary No Growth After 2 Days 07/20/17 11:55 Urine Legionella Urinary Antigen - Final 07/20/17 11:55 Urine Streptococcus pneumoniae Antigen (M - Final Impression: COPD exacerbation, on 2 L of O2 by nasal cannula at night as baseline. Pneumonia: right middle lobe infiltrate seen on chest x-ray. Hypogammaglobulinemia History of atrial fibrillation-on amio drip Recurrent pneumonia/bronchitis GERD Recent steroid use Recommendation: Continue levaquin for now. If she is not felt to be improving, consider broadening antibiotics to Zosyn. I I discussed with her that she might benefit from IVIG. I discussed possibly giving her a dose now, however, she needs a vaccine challenge with the pneumovax to make sure that she meets criteria for IVIG as an outpatient. She wants to wait for now. I would recommend tapering down the steroids as soon as it is felt to be possible. I would like to see her as an outpatient after she recovers from this illness to complete the immune workup.
[2017-07-23] MEDS ORDERED: FLECAINIDE 100 MG TABLET PO ONE (10:39)
[2017-07-23] MEDS: FUROSEMIDE 20 MG/2 ML INJECTION IVP SCH (11:05)
--- NOTE | 2017-07-23 11:39 | Progress Note ---
- Date 07/23/17 Subjective: F/U: Acute hypoxic respiratory failure, pneumonia, COPD with acute exacerbation. Doing okay other than still very SOA. Cough and chest congestion present-not able to mobilize sputum. No chest wall pain from cough. Denies chest pressure or palpitations. No nausea or ab pain. Activities limited secondary to dyspnea with activities. Objective Vital signs: Temperature 98.1 F 07/23/17 07:30 Pulse Rate 71 07/23/17 10:00 Respiratory Rate 38 H 07/23/17 10:00 Blood Pressure 133/60 07/23/17 09:00 Pulse Oximetry 94 07/23/17 10:00 Height/Weight/BMI: Height 1.57 m Weight 85.5 kg Body Mass Index 34.4 - Constitutional Present: well nourished, well developed, obese, cooperative. Absent: agitated - Routine HEENT Exam Head: Present: normocephalic, atraumatic Eye: Present: EOMI, PERRL ENT: Present: mucous membranes moist - Routine Respiratory Exam Present: decreased breath sounds, wheezes, distant breath sounds, diminished air movement - Routine Cardiovascular Exam Present: RRR, no murmur - Routine Abdominal Exam Present: soft, normoactive bowel sounds, non distended, non tender - Routine Extremities Exam Present: edema (Trace LE edema ), pulses intact. Absent: cyanosis, clubbing - Routine Musculoskeletal Exam Musculoskeletal: Present: no clubbing or cyanosis - Routine Skin Exam Present: dry, warm - Routine Neurological Exam Present: alert, oriented X3, CN II-XII intact, moving all extremities, vision grossly intact, hearing grossly intact. Absent: motor deficit, altered mental status - Routine Psychiatric Exam Present: normal affect, normal thought process, cooperative. Absent: anxious, agitated Results - Labs CBC & Chem 7: 07/23/17 03:55 07/23/17 03:55 Microbiology Results: Microbiology 07/20/17 10:10 Peripheral/Iv Start Blood Culture - Preliminary No Growth After 3 Days 07/20/17 11:55 Urine Legionella Urinary Antigen - Final 07/20/17 11:55 Urine Streptococcus pneumoniae Antigen (M - Final Assessment and Plan (1) COPD exacerbation Current visit: Yes Status: Acute (2) Community acquired pneumonia Current visit: Yes Status: Acute (3) Acute respiratory failure with hypoxia Current visit: Yes Status: Acute (4) Atrial fibrillation Current visit: Yes Status: Acute (5) GERD (gastroesophageal reflux disease) Current visit: Yes Status: Acute DVT Prophylaxis: Lovenox Resuscitation Status: Full Code Assessment and Plan: Assessment Pneumonia Acute hypoxic respiratory failure COPD with acute exacerbation Hypogammaglobulinemia Afib with RVR - converted to NSR with medication on 07/22/17 HTN Mod to severe pulm HTN GERD Decreased TSH Obesity with BMI 34.5 Plan Diltiazem and amiodarone drips stopped - cardiology started Flecainide. Eliquis started for anticoagulation in light of afib. Stop Norvasc in light of Diltiazem use. Decrease Solu-Medrol to 62.5mg IV q 6 hours. Continue Neb treatment, Acapella. Continue levofloxacin 500mg daily for pneumonia coverage. Check Free T3 & T4 due to decreased TSH - was present at prior hospitalization this year. See by Dr Galdamez at that time. Wean O2 as able. Will consult with PT/OT to help improve her pulmonary debility. Dr Lindsay planning further evaluation of Hypogammaglobulinemia in outpatient setting. Monitor lab. As HR improved and not needing drips of cardioversion, will transfer to medical floor on Tele. Case discussed with CCU nursing. Time spent with patient care 25 minutes. Hospital Course Summary Disclaimer: The visit summary below is not to be considered part of the above Progress Note. Hospital Course: 07/19/17 Admission Assessment COPD exacerbation Community acquired pneumonia Acute respiratory failure with hypoxia Atrial fibrillation - Hx of Plan Solu-Medrol, albuterol prn , DuoNeb, ivf, labs would not inform that this is hypercapnia. reassess in am. discussed with patient this will be along term process of healing. Levaquin (higher risk for Pseudomonas and as such Quinolone to start with). Chest X-Ray ordered in ED. Chronically on 2 at night . on 3.5 now. monitor and should improve as copd is improved and pneumonia treated. 07/20/17 Dr Shaffer Discussed with respiratory therapy, will use [facility] Protocol. Continue IV Solu-Medrol. We'll change to levofloxacin by mouth. We'll obtain blood cultures, sputum culture, [employer] respiratory panel, urine for Legionella antigen and strep pneumo antigen. Previous antibiotic use may decrease the chance of isolating a pathogen in her cultures. Continue the patient on her Cardizem for her atrial fibrillation, she is not on other anticoagulation other than an aspirin at home. Currently she is receiving enoxaparin. Dr Csatanon consulted for pulmonary evaluation and treatment recommendations. 07/21/[address] Castanon's help. Continue IV Solu-Medrol. Continue levofloxacin for 5 days total. Previous antibiotic use may decrease the chance of isolating a pathogen in her cultures. Continue the patient on her Cardizem for her atrial fibrillation, she is not on other anticoagulation other than an aspirin at home. Currently she is receiving enoxaparin. With consult Dr. Windy Lindsay on Sunday to evaluate the patient for possible IV immunoglobulin secondary to her hypogammaglobulinemia. Blood pressure is slightly elevated, will give IV Lasix 1 and started on Norvasc. Patient has some slight erythema to her tongue will start Mycelex troches. Patient developed afib with RVR - transferred to CCU for IV diltiazem drip. Dr Lind consulted. 07/22/[address] Castanon's help. Continue IV Solu-Medrol. Continue levofloxacin for 5 days total. Spoke with cardiology. Patient only anticoagulated with Lovenox. Amiodarone used to treat A. fib with RVR. EKG is ordered for a.m. to ensure no prolongation of QT. 07/23/17 Luiza Diltiazem and amiodarone drips stopped - cardiology started Flecainide. Eliquis started for anticoagulation in light of afib. Stop Norvasc in light of Diltiazem use. Decrease Solu-Medrol to 62.5mg IV q 6 hours. Continue Neb treatment, Acapella. Continue levofloxacin 500mg daily for pneumonia coverage. Check Free T3 & T4 due to decreased TSH - was present at prior hospitalization this year. See by Dr Galdamez at that time. Wean O2 as able. Will consult with PT/OT to help improve her pulmonary debility. Dr Lindsay planning further evaluation of Hypogammaglobulinemia in outpatient setting. Monitor lab. As HR improved and not needing drips of cardioversion, will transfer to medical floor on Tele.
[2017-07-23] MEDS: DOCUSATE SODIUM 100 MG CAPSULE PO PRN (12:07)
--- NOTE | 2017-07-23 13:37 | Cardiology Progress Note ---
<Blanca Peter - Last Filed: 07/23/17 14:38> Subjective Principal diagnosis: AFIB RVR Interval history: Delma is seen in follow up for atrial fibrillation with Dr. Servin this morning un CCU. She converted from Atrial fibrillation and remains on Amiodarone drip. She denies chest pain or pressure, denies palpitations. Is anxious to get out of CCU. Exam Vital signs: Temperature 98.3 F 07/23/17 12:04 Pulse Rate 64 07/23/17 12:26 Respiratory Rate 28 H 07/23/17 12:00 Blood Pressure 124/83 07/23/17 12:04 Pulse Oximetry 93 07/23/17 12:04 - Constitutional no acute distress, well nourished, cooperative - Routine HEENT Exam Head: Present: normocephalic ENT: Present: mucous membranes moist - Routine Neck Exam Absent: JVD, carotid bruit - Routine Chest/Breast/Axilla Exam Chest wall: Absent: tenderness - Routine Respiratory Exam Present: rhonchi (throughout upper), diminished air movement (bases) - Routine Cardiovascular Exam Present: RRR, no murmur. Absent: JVD - Routine Abdominal Exam Present: soft, normoactive bowel sounds - Routine Extremities Exam Present: no edema - Routine Skin Exam Present: intact, dry, warm - Routine Neurological Exam Present: alert, oriented X3 - Routine Psychiatric Exam Present: normal affect, normal thought process - Additional findings Additional findings: Abnormal Lab Results 07/23/17 07/23/17 07/23/17 03:55 03:55 12:30 WBC 10.1 D RBC 4.18 Hgb 12.2 Hct 37.0 MCV 88.5 MCH 29.2 MCHC 33.0 RDW Std Deviation 48.2 Plt Count 186 MPV 11.7 Immature Gran % (Auto) Not performed Neut % (Auto) Not performed Lymph % (Auto) Not performed [place] % (Auto) Not performed Eos % (Auto) Not performed Baso % (Auto) Not performed Neut # (Auto) Not performed Lymph # (Auto) Not performed [place] # (Auto) Not performed Eos # (Auto) Not performed Baso # (Auto) Not performed Abs Immat Gran (auto) Not performed Neutrophils % (Manual) 95.0 H Band Neutrophils % 1.0 Lymphocytes % (Manual) 4.0 L Neutrophils # (Manual) 9.6 H Band Neutrophils # 0.1 Lymphocytes # (Manual) 0.4 L RBC Morph Comment Normal Turbidity < 20 Sodium 141 Potassium 3.5 L Chloride 103 Carbon Dioxide 29 Anion Gap 9 BUN 45.0 H D Creatinine 1.0 GFR Calculation 54 BUN/Creatinine Ratio 45 H Glucose 148 H Calculated Osmolality 286 H Calcium 8.9 D Magnesium 2.0 Total Bilirubin 0.50 Icterus Index < 2 AST 27 ALT 36 Alkaline Phosphatase 52 Total Protein 5.6 L Albumin 3.3 L Globulin 2.3 L Albumin/Globulin Ratio 1.4 Free T4 Cancelled Free T3 Cancelled Specimen Hemolysis 23 Acetaminophen (Tylenol) 325 - 650 mg PO Q5H PRN PRN Reason: Discomfort Last Admin: 07/23/17 04:52 Dose: 650 mg Albuterol Sulfate (Proventil Neb (0.083%)) 2.5 mg AEROSOL Q6H PRN Albuterol/Ipratropium (Duoneb) 3 ml AEROSOL Q6H PRN Last Admin: 07/20/17 11:18 Dose: 3 ml Albuterol/Ipratropium (Duoneb) 3 ml AEROSOL Q4HR [facility] Last Admin: 07/23/17 11:36 Dose: 3 ml Allopurinol (Zyloprim) 100 mg PO DAILY [facility] Last Admin: 07/23/17 09:30 Dose: 100 mg Apixaban (Eliquis) 5 mg PO BID [facility] Budesonide (Pulmicort Inhalation) 0.5 mg AEROSOL RTBID [facility] Last Admin: 07/23/17 11:34 Dose: Not Given Citalopram Hydrobromide (Celexa) 10 mg PO DAILY [facility] Last Admin: 07/23/17 09:30 Dose: 10 mg Clotrimazole (Mycelex Guillermo) 10 mg MM 5XD [facility] Last Admin: 07/23/17 12:07 Dose: 10 mg Diltiazem HCl (Cardizem Cd) 180 mg PO DAILY [facility] Last Admin: 07/23/17 09:31 Dose: 180 mg Docusate Sodium (Colace) 100 mg PO DAILY PRN Last Admin: 07/23/17 12:07 Dose: 100 mg Flecainide Acetate (Tambocor) 50 mg PO BID [facility] Furosemide (Lasix) 20 mg IVP DAILY [facility] Last Admin: 07/23/17 11:05 Dose: 20 mg Gabapentin (Neurontin) 100 mg PO TID PRN PRN Reason: PRN orders Last Admin: 07/22/17 20:26 Dose: 100 mg Gabapentin (Neurontin) 600 mg PO HS [facility] Last Admin: 07/22/17 20:27 Dose: 600 mg Guaifenesin/Codeine Phosphate (Robitussin Ac) 5 ml PO Q4H PRN PRN Reason: Cough /Congestion Last Admin: 07/21/17 06:20 Dose: 5 ml Lansoprazole (Prevacid Solu-Tab) 15 mg PO BID [facility] Last Admin: 07/23/17 09:31 Dose: 15 mg Levofloxacin (Levaquin) 500 mg PO Q24HR [facility] Stop: 07/23/17 23:00 Last Admin: 07/22/17 20:26 Dose: 500 mg Lorazepam (Ativan) 0.5 mg PO HS PRN PRN Reason: PRN orders Last Admin: 07/22/17 23:03 Dose: 0.5 mg Methylprednisolone Sodium Succinate (Solu-Medrol) 80 mg IVP Q6HR [facility] Morphine Sulfate (Morphine Sulfate Inj) 2 mg IVP Q2HR PRN PRN Reason: Pain Potassium Chloride (K-Dur) 10 meq PO O ONE Stop: 07/23/17 17:31 Sodium Chloride (Iv Flush) 10 - 80 ml IVF PRN PRN PRN Reason: Flushing Last Admin: 07/22/17 08:15 Dose: 10 ml Assessment and Plan - Assessment and Plan (1) COPD exacerbation Current visit: Yes Status: Acute (2) Community acquired pneumonia Current visit: Yes Status: Acute (3) Acute respiratory failure with hypoxia Current visit: Yes Status: Acute (4) Atrial fibrillation with RVR Current visit: Yes Status: Acute Converted to SR with Amiodarone drip - May transfer out of CCU from cardiac standpoint - Start on Flecainide 100mg now then 50mg BID - EKG in am to check QT interval - Continue to monitor on cardiac telemetry - Continue home Cardizem - Eliquis 5mg po BID for anticoagulation to prevent stroke - Will need outpatient stress test to rule out ischemic coronary disease Hospital Course Summary Disclaimer: The visit summary below is not to be considered part of the above Progress Note. Hospital Course: 07/19/17 Admission Assessment COPD exacerbation Community acquired pneumonia Acute respiratory failure with hypoxia Atrial fibrillation - Hx of Plan Solu-Medrol, albuterol prn , DuoNeb, ivf, labs would not inform that this is hypercapnia. reassess in am. discussed with patient this will be along term process of healing. Levaquin (higher risk for Pseudomonas and as such Quinolone to start with). Chest X-Ray ordered in ED. Chronically on 2 at night . on 3.5 now. monitor and should improve as copd is improved and pneumonia treated. 07/20/17 Dr Shaffer Discussed with respiratory therapy, will use [facility] Protocol. Continue IV Solu-Medrol. We'll change to levofloxacin by mouth. We'll obtain blood cultures, sputum culture, [employer] respiratory panel, urine for Legionella antigen and strep pneumo antigen. Previous antibiotic use may decrease the chance of isolating a pathogen in her cultures. Continue the patient on her Cardizem for her atrial fibrillation, she is not on other anticoagulation other than an aspirin at home. Currently she is receiving enoxaparin. Dr Castanon consulted for pulmonary evaluation and treatment recommendations. 07/21/[address] Castanon's help. Continue IV Solu-Medrol. Continue levofloxacin for 5 days total. Previous antibiotic use may decrease the chance of isolating a pathogen in her cultures. Continue the patient on her Cardizem for her atrial fibrillation, she is not on other anticoagulation other than an aspirin at home. Currently she is receiving enoxaparin. With consult Dr. Windy Lindsay on Sunday to evaluate the patient for possible IV immunoglobulin secondary to her hypogammaglobulinemia. Blood pressure is slightly elevated, will give IV Lasix 1 and started on Norvasc. Patient has some slight erythema to her tongue will start Mycelex troches. Patient developed afib with RVR - transferred to CCU for IV diltiazem drip. Dr Lind consulted. 07/22/[address] Castanon's help. Continue IV Solu-Medrol. Continue levofloxacin for 5 days total. Spoke with cardiology. Patient only anticoagulated with Lovenox. Amiodarone used to treat A. fib with RVR. EKG is ordered for a.m. to ensure no prolongation of QT. 07/23/17 Luiza Diltiazem and amiodarone drips stopped - cardiology started Flecainide. Eliquis started for anticoagulation in light of afib. Stop Norvasc in light of Diltiazem use. Decrease Solu-Medrol to 62.5mg IV q 6 hours. Continue Neb treatment, Acapella. Continue levofloxacin 500mg daily for pneumonia coverage. Check Free T3 & T4 due to decreased TSH - was present at prior hospitalization this year. See by Dr Galdamez at that time. Wean O2 as able. Will consult with PT/OT to help improve her pulmonary debility. Dr Lindsay planning further evaluation of Hypogammaglobulinemia in outpatient setting. Monitor lab. As HR improved and not needing drips of cardioversion, will transfer to medical floor on Tele. <Benny Servin - Last Filed: 07/23/17 19:58> Exam Vital signs: Temperature 96.7 F L 07/23/17 19:47 Pulse Rate 75 07/23/17 19:47 Respiratory Rate 18 07/23/17 19:47 Blood Pressure 143/70 H 07/23/17 19:47 Pulse Oximetry 93 07/23/17 19:47 Assessment and Plan - Assessment and Plan (1) COPD exacerbation Current visit: Yes Status: Acute (2) Community acquired pneumonia Current visit: Yes Status: Acute (3) Acute respiratory failure with hypoxia Current visit: Yes Status: Acute (4) Atrial fibrillation with RVR Current visit: Yes Status: Acute Hospital Course Summary Disclaimer: The visit summary below is not to be considered part of the above Progress Note.
[2017-07-23] MEDS: GUAIFENESIN/CODEINE 5ml ORAL LIQUID PO PRN ×2 (17:06→21:21)
[2017-07-23] MEDS: LEVOFLOXACIN 500 MG TABLET PO SCH (21:11)
[2017-07-23] MEDS: GABAPENTIN 600 MG TABLET PO SCH (21:11)
[2017-07-23] MEDS: APIXABAN 5 MG TABLET PO SCH (21:11)
[2017-07-23] MEDS: FLECAINIDE 50 MG TABLET PO SCH (21:12)
[2017-07-23] MEDS: LORazepam 0.5 MG TABLET PO PRN (22:24)
[2017-07-24] MEDS: METHYLPREDNISOLONE SOD SUCC 125mg/2ml INJECTION IVP SCH ×3 (03:40→15:20)
[2017-07-24] MEDS: ALBUTEROL/IPRATROPIUM 2.5mg-0.5mg/3ml NEB AEROSOL SCH ×6 (04:20→20:16)
[2017-07-24] MEDS: ALLOPURINOL 100 MG TABLET PO SCH (08:32)
[2017-07-24] MEDS: CLOTRIMAZOLE 10 MG TROCHE MM SCH ×5 (08:32→20:36)
[2017-07-24] MEDS: APIXABAN 5 MG TABLET PO SCH ×2 (08:33→20:36)
[2017-07-24] MEDS: CITALOPRAM 10 MG TABLET PO SCH (08:33)
[2017-07-24] MEDS: LANSOPRAZOLE SOLU-TAB 15 MG TABLET PO SCH ×2 (08:34→20:36)
[2017-07-24] MEDS: FLECAINIDE 50 MG TABLET PO SCH ×2 (08:34→20:36)
[2017-07-24] MEDS: FUROSEMIDE 20 MG/2 ML INJECTION IVP SCH (08:34)
[2017-07-24] MEDS: DOCUSATE SODIUM 100 MG CAPSULE PO PRN (08:36)
[2017-07-24] MEDS: BUDESONIDE INH.SOLN 0.5mg/2ml NEB AEROSOL SCH ×2 (09:41→20:16)
[2017-07-24] MEDS ORDERED: POLYETHYL GLYCOL 3350 17gm PACKET PO PRN (09:42)
[2017-07-24] MEDS ORDERED: BISACODYL 10 MG SUPPOSITORY RECTALLY PRN (09:42)
--- NOTE | 2017-07-24 10:13 | Progress Note ---
- Date 07/24/17 Subjective: F/U: Acute hypoxic respiratory failure, pneumonia, COPD with acute exacerbation. Making gains. Breathing feels easier, but still has significant cough and congestion. Not mobilizing sputum. Does feel acapella and neb treatments helpful. Worked with therapy and did well-just needs to work on conditioning. Eating well-no nausea or ab pain. Bowels moving. Not having mouth pain or pain with swallowing. No urinary difficulty. No f/c. Still feels very weak and sick in general. Not sleeping well at night-thinks it's the steroids. Is getting neb treatments q4 which may be interrupting sleep. Objective Vital signs: Temperature 96.1 F L 07/24/17 07:00 Pulse Rate 74 07/24/17 07:00 Respiratory Rate 18 07/24/17 09:41 Blood Pressure 139/73 07/24/17 07:00 Pulse Oximetry 95 07/24/17 09:41 Height/Weight/BMI: Height 1.57 m Weight 86.6 kg Body Mass Index 34.4 - Constitutional Present: well nourished, well developed, obese, cooperative - Routine HEENT Exam Head: Present: normocephalic, atraumatic Eye: Present: EOMI, PERRL ENT: Present: mucous membranes moist (No thrush) - Routine Respiratory Exam Present: decreased breath sounds, rales, rhonchi, distant breath sounds. Absent : crackles - Routine Cardiovascular Exam Present: RRR, no murmur - Routine Abdominal Exam Present: soft, normoactive bowel sounds, non distended, non tender. Absent: guarding - Routine Extremities Exam Present: no edema, pulses intact. Absent: cyanosis, clubbing - Routine Musculoskeletal Exam Musculoskeletal: Present: no clubbing or cyanosis, normal strength - Routine Skin Exam Present: dry, warm - Routine Neurological Exam Present: alert, oriented X3, CN II-XII intact, moving all extremities, vision grossly intact, hearing grossly intact. Absent: motor deficit, altered mental status - Routine Psychiatric Exam Present: normal affect, normal thought process, cooperative, good insight, good judgment Results - Labs CBC & Chem 7: 07/24/17 05:33 07/24/17 05:33 Microbiology Results: Microbiology 07/20/17 10:10 Peripheral/Iv Start Blood Culture - Preliminary No Growth After 3 Days 07/20/17 11:55 Urine Legionella Urinary Antigen - Final 07/20/17 11:55 Urine Streptococcus pneumoniae Antigen (M - Final Assessment and Plan (1) COPD exacerbation Current visit: Yes Status: Acute (2) Community acquired pneumonia Current visit: Yes Status: Acute (3) Acute respiratory failure with hypoxia Current visit: Yes Status: Acute (4) Atrial fibrillation Current visit: Yes Status: Acute (5) GERD (gastroesophageal reflux disease) Current visit: Yes Status: Acute DVT Prophylaxis: Eliquis Resuscitation Status: Full Code Assessment and Plan: Assessment Pneumonia Acute hypoxic respiratory failure COPD with acute exacerbation Hypogammaglobulinemia Afib with RVR - converted to NSR with medication on 07/22/17 HTN Mod to severe pulm HTN GERD Decreased TSH Hypokalemia (Not POA) - improved Obesity with BMI 34.5 Plan Patient completed 5 days of levofloxacin therapy. Change Solu-Medrol to Prednisone 40mg daily. Decrease DuoNeb to RT QID (continue prn). Continue acapella use. Nursing to ambulate QID to help strength. Heart rate and BP stable on Flecainide and diltiazem. Potassium improved. Will recheck CXR tomorrow along with lab. Case discussed with CM. Time spent with patient care 25 minutes. - Time spent with patient Time with patient PN: 25 minutes Hospital Course Summary Disclaimer: The visit summary below is not to be considered part of the above Progress Note. Hospital Course: 07/19/17 Admission Assessment COPD exacerbation Community acquired pneumonia Acute respiratory failure with hypoxia Atrial fibrillation - Hx of Plan Solu-Medrol, albuterol prn , DuoNeb, ivf, labs would not inform that this is hypercapnia. reassess in am. discussed with patient this will be along term process of healing. Levaquin (higher risk for Pseudomonas and as such Quinolone to start with). Chest X-Ray ordered in ED. Chronically on 2 at night . on 3.5 now. monitor and should improve as copd is improved and pneumonia treated. 07/20/17 Dr Shaffer Discussed with respiratory therapy, will use [facility] Protocol. Continue IV Solu-Medrol. We'll change to levofloxacin by mouth. We'll obtain blood cultures, sputum culture, [employer] respiratory panel, urine for Legionella antigen and strep pneumo antigen. Previous antibiotic use may decrease the chance of isolating a pathogen in her cultures. Continue the patient on her Cardizem for her atrial fibrillation, she is not on other anticoagulation other than an aspirin at home. Currently she is receiving enoxaparin. Dr Castanon consulted for pulmonary evaluation and treatment recommendations. 07/21/[address] Castanon's help. Continue IV Solu-Medrol. Continue levofloxacin for 5 days total. Previous antibiotic use may decrease the chance of isolating a pathogen in her cultures. Continue the patient on her Cardizem for her atrial fibrillation, she is not on other anticoagulation other than an aspirin at home. Currently she is receiving enoxaparin. With consult Dr. Windy Lindsay on Sunday to evaluate the patient for possible IV immunoglobulin secondary to her hypogammaglobulinemia. Blood pressure is slightly elevated, will give IV Lasix 1 and started on Norvasc. Patient has some slight erythema to her tongue will start Mycelex troches. Patient developed afib with RVR - transferred to CCU for IV diltiazem drip. Dr Lind consulted. 07/22/[address] Castanon's help. Continue IV Solu-Medrol. Continue levofloxacin for 5 days total. Spoke with cardiology. Patient only anticoagulated with Lovenox. Amiodarone used to treat A. fib with RVR. EKG is ordered for a.m. to ensure no prolongation of QT. 07/23/17 Luiza Diltiazem and amiodarone drips stopped - cardiology started Flecainide. Eliquis started for anticoagulation in light of afib. Stop Norvasc in light of Diltiazem use. Decrease Solu-Medrol to 80mg IV q 6 hours. Continue Neb treatment, Acapella. Continue levofloxacin 500mg daily for pneumonia coverage - day 5 of treatment. Check Free T3 & T4 due to decreased TSH - was present at prior hospitalization this year. See by Dr Galdamez at that time. Wean O2 as able. Will consult with PT/OT to help improve her pulmonary debility. Dr Lindsay planning further evaluation of Hypogammaglobulinemia in outpatient setting. Monitor lab. As HR improved and not needing drips of cardioversion, will transfer to medical floor on Tele. 07/24/17 Patient completed 5 days of levofloxacin therapy. Change Solu-Medrol to Prednisone 40mg daily. Decrease DuoNeb to RT QID (continue prn). Continue acapella use. Nursing to ambulate QID to help strength. Heart rate and BP stable on Flecainide and diltiazem. Potassium improved. Will recheck CXR tomorrow along with lab.
--- NOTE | 2017-07-24 12:14 | Cardiology Progress Note ---
<Blanca Peter - Last Filed: 07/24/17 17:20> Subjective Principal diagnosis: AFIB RVR Interval history: Delma is seen in follow up for atrial fibrillation, she is in her bed receiving a nebulizer treatment. She remains in SR on Flecainide. She denies chest pain or pressure, denies palpitations. Exam Vital signs: Temperature 96.1 F L 07/24/17 07:00 Pulse Rate 78 07/24/17 11:00 Respiratory Rate 22 07/24/17 11:00 Blood Pressure 151/68 H 07/24/17 11:00 Pulse Oximetry 94 07/24/17 11:00 - Constitutional no acute distress, well nourished, cooperative - Routine HEENT Exam Head: Present: normocephalic ENT: Present: mucous membranes moist - Routine Neck Exam Absent: JVD, carotid bruit - Routine Chest/Breast/Axilla Exam Chest wall: Absent: tenderness - Routine Respiratory Exam Present: rhonchi (throughout), diminished air movement (bases) - Routine Cardiovascular Exam Present: RRR, no murmur. Absent: JVD - Routine Abdominal Exam Present: soft, normoactive bowel sounds - Routine Extremities Exam Present: no edema - Routine Skin Exam Present: intact, dry, warm - Routine Neurological Exam Present: alert, oriented X3 - Routine Psychiatric Exam Present: normal affect, normal thought process - Additional findings Additional findings: Abnormal Lab Results 07/24/17 07/24/17 05:33 05:33 WBC 7.5 RBC 4.49 Hgb 13.0 Hct 39.9 MCV 88.9 MCH 29.0 MCHC 32.6 RDW Std Deviation 48.0 Plt Count 195 MPV 11.1 Immature Gran % (Auto) Not performed Neut % (Auto) Not performed Lymph % (Auto) Not performed Knox % (Auto) Not performed Eos % (Auto) Not performed Baso % (Auto) Not performed Neut # (Auto) Not performed Lymph # (Auto) Not performed Knox # (Auto) Not performed Eos # (Auto) Not performed Baso # (Auto) Not performed Abs Immat Gran (auto) Not performed Neutrophils % (Manual) 95.0 H Lymphocytes % (Manual) 5.0 L Neutrophils # (Manual) 7.1 Lymphocytes # (Manual) 0.4 L RBC Morph Comment Normal Turbidity < 20 Sodium 137 Potassium 3.8 Chloride 98 Carbon Dioxide 26 Anion Gap 13 BUN 34.0 H Creatinine 0.9 GFR Calculation 61 BUN/Creatinine Ratio 38 H Glucose 138 H Calculated Osmolality 274 Calcium 8.5 Icterus Index < 2 Specimen Hemolysis 42 H Acetaminophen (Tylenol) 325 - 650 mg PO Q5H PRN PRN Reason: Discomfort Last Admin: 07/23/17 04:52 Dose: 650 mg Albuterol Sulfate (Proventil Neb (0.083%)) 2.5 mg AEROSOL Q6H PRN Albuterol/Ipratropium (Duoneb) 3 ml AEROSOL Q6H PRN Last Admin: 07/20/17 11:18 Dose: 3 ml Albuterol/Ipratropium (Duoneb) 3 ml AEROSOL RTQID [facility] Allopurinol (Zyloprim) 100 mg PO DAILY [facility] Last Admin: 07/24/17 08:32 Dose: 100 mg Apixaban (Eliquis) 5 mg PO BID [facility] Last Admin: 07/24/17 08:33 Dose: 5 mg Bisacodyl (Dulcolax) 10 mg RECTALLY DAILY PRN PRN Reason: Constipation Budesonide (Pulmicort Inhalation) 0.5 mg AEROSOL RTBID [facility] Last Admin: 07/24/17 09:41 Dose: 0.5 mg Citalopram Hydrobromide (Celexa) 10 mg PO DAILY [facility] Last Admin: 07/24/17 08:33 Dose: 10 mg Clotrimazole (Mycelex Guillermo) 10 mg MM 5XD [facility] Last Admin: 07/24/17 11:11 Dose: 10 mg Diltiazem HCl (Cardizem Cd) 180 mg PO DAILY [facility] Last Admin: 07/24/17 10:51 Dose: 180 mg Docusate Sodium (Colace) 100 mg PO DAILY PRN Last Admin: 07/24/17 08:36 Dose: 100 mg Flecainide Acetate (Tambocor) 50 mg PO BID [facility] Last Admin: 07/24/17 08:34 Dose: 50 mg Furosemide (Lasix) 20 mg IVP DAILY [facility] Last Admin: 07/24/17 08:34 Dose: 20 mg Gabapentin (Neurontin) 100 mg PO TID PRN PRN Reason: PRN orders Last Admin: 07/22/17 20:26 Dose: 100 mg Gabapentin (Neurontin) 600 mg PO HS [facility] Last Admin: 07/23/17 21:11 Dose: 600 mg Guaifenesin/Codeine Phosphate (Robitussin Ac) 5 ml PO Q4H PRN PRN Reason: Cough /Congestion Last Admin: 07/23/17 21:21 Dose: 5 ml Lansoprazole (Prevacid Solu-Tab) 15 mg PO BID [facility] Last Admin: 07/24/17 08:34 Dose: 15 mg Lorazepam (Ativan) 0.5 mg PO HS PRN PRN Reason: PRN orders Last Admin: 07/23/17 22:24 Dose: 0.5 mg Magnesium Hydroxide (Mom) 30 ml PO DAILY PRN PRN Reason: Constipation Methylprednisolone Sodium Succinate (Solu-Medrol) 80 mg IVP Q6HR [facility] Last Admin: 07/24/17 08:34 Dose: 80 mg Morphine Sulfate (Morphine Sulfate Inj) 2 mg IVP Q2HR PRN PRN Reason: Pain Polyethylene Glycol (Miralax) 17 gm PO DAILY PRN PRN Reason: Constipation Prednisone (Deltasone) 40 mg PO WB [facility] Sodium Chloride (Iv Flush) 10 - 80 ml IVF PRN PRN PRN Reason: Flushing Last Admin: 07/22/17 08:15 Dose: 10 ml EKG : SR with occ. PVCs, rate 67, QTC 432 Assessment and Plan - Assessment and Plan (1) Atrial fibrillation with RVR Status: Acute EKG stable - Continue Flecainide, Cardizem and Eliquis - Monitor cardiac telemetry - monitor hgb and platelet count (2) COPD exacerbation Status: Acute (3) Community acquired pneumonia Status: Acute (4) Acute respiratory failure with hypoxia Status: Acute (5) Essential (primary) hypertension Status: Acute Increase Cardizem to 240mg for better blood pressure control Hospital Course Summary Disclaimer: The visit summary below is not to be considered part of the above Progress Note. Hospital Course: 07/19/17 Admission Assessment COPD exacerbation Community acquired pneumonia Acute respiratory failure with hypoxia Atrial fibrillation - Hx of Plan Solu-Medrol, albuterol prn , DuoNeb, ivf, labs would not inform that this is hypercapnia. reassess in am. discussed with patient this will be along term process of healing. Levaquin (higher risk for Pseudomonas and as such Quinolone to start with). Chest X-Ray ordered in ED. Chronically on 2 at night . on 3.5 now. monitor and should improve as copd is improved and pneumonia treated. 07/20/17 Dr Shaffer Discussed with respiratory therapy, will use [facility] Protocol. Continue IV Solu-Medrol. We'll change to levofloxacin by mouth. We'll obtain blood cultures, sputum culture, [employer] respiratory panel, urine for Legionella antigen and strep pneumo antigen. Previous antibiotic use may decrease the chance of isolating a pathogen in her cultures. Continue the patient on her Cardizem for her atrial fibrillation, she is not on other anticoagulation other than an aspirin at home. Currently she is receiving enoxaparin. Dr Castanon consulted for pulmonary evaluation and treatment recommendations. 07/21/[address] Castanon's help. Continue IV Solu-Medrol. Continue levofloxacin for 5 days total. Previous antibiotic use may decrease the chance of isolating a pathogen in her cultures. Continue the patient on her Cardizem for her atrial fibrillation, she is not on other anticoagulation other than an aspirin at home. Currently she is receiving enoxaparin. With consult Dr. Windy Lindsay on Sunday to evaluate the patient for possible IV immunoglobulin secondary to her hypogammaglobulinemia. Blood pressure is slightly elevated, will give IV Lasix 1 and started on Norvasc. Patient has some slight erythema to her tongue will start Mycelex troches. Patient developed afib with RVR - transferred to CCU for IV diltiazem drip. Dr Lind consulted. 07/22/[address] Castanon's help. Continue IV Solu-Medrol. Continue levofloxacin for 5 days total. Spoke with cardiology. Patient only anticoagulated with Lovenox. Amiodarone used to treat A. fib with RVR. EKG is ordered for a.m. to ensure no prolongation of QT. 07/23/17 Luiza Diltiazem and amiodarone drips stopped - cardiology started Flecainide. Eliquis started for anticoagulation in light of afib. Stop Norvasc in light of Diltiazem use. Decrease Solu-Medrol to 80mg IV q 6 hours. Continue Neb treatment, Acapella. Continue levofloxacin 500mg daily for pneumonia coverage - day 5 of treatment. Check Free T3 & T4 due to decreased TSH - was present at prior hospitalization this year. See by Dr Galdamez at that time. Wean O2 as able. Will consult with PT/OT to help improve her pulmonary debility. Dr Lindsay planning further evaluation of Hypogammaglobulinemia in outpatient setting. Monitor lab. As HR improved and not needing drips of cardioversion, will transfer to medical floor on Tele. 07/24/17 Patient completed 5 days of levofloxacin therapy. Change Solu-Medrol to Prednisone 40mg daily. Decrease DuoNeb to RT QID (continue prn). Continue acapella use. Nursing to ambulate QID to help strength. Heart rate and BP stable on Flecainide and diltiazem. Potassium improved. Will recheck CXR tomorrow along with lab. <Arsalan Lind - Last Filed: 07/27/17 08:18> Exam Vital signs: Temperature 96.9 F 07/25/17 15:23 Pulse Rate 76 07/25/17 15:23 Respiratory Rate 22 07/25/17 15:23 Blood Pressure 157/68 H 07/25/17 15:23 Pulse Oximetry 87 L 07/25/17 15:00 Assessment and Plan - Assessment and Plan (1) COPD exacerbation Status: Acute (2) Community acquired pneumonia Status: Acute (3) Acute respiratory failure with hypoxia Status: Acute (4) Atrial fibrillation with RVR Status: Acute (5) Essential (primary) hypertension Status: Acute - Attestation Attestation Narrative: 07/27/17 08:17 Recommendation After examining the patient I agree with the above assessment. I am involved in the formulation of the patient's plan of care. Hospital Course Summary Disclaimer: The visit summary below is not to be considered part of the above Progress Note.
--- NOTE | 2017-07-24 17:39 | Echocardiogram ---
DATE OF PROCEDURE July 23, 2017 This is a two-dimensional echo with spectral Doppler, color-flow and M-mode. It was obtained in a patient with atrial fibrillation. Left atrial dimension is normal. Left ventricular end-diastolic dimension is normal. Left ventricular wall thickness is normal. LV systolic function is normal with ejection fraction of about 70%. Right atrium is normal. Right ventricle is normal. Aortic root dimension is normal. Mitral valve is morphologically normal with trace of mitral regurgitation. Aortic valve was not visualized well but Doppler studies indicate no stenosis or insufficiency. Tricuspid valve shows trace of tricuspid regurgitation with moderate pulmonary hypertension with estimated pulmonary artery systolic pressure of 44. Pulmonary valve shows no pulmonary insufficiency. There is no pericardial effusion. IMPRESSION 1. Technically difficult study. 2. Normal LV systolic function with ejection fraction of 70%. 3. Trace of mitral regurgitation. 4. Trace of tricuspid regurgitation with moderate pulmonary hypertension with estimated pulmonary artery systolic pressure of 44. MTDD
[2017-07-24] MEDS: GABAPENTIN 600 MG TABLET PO SCH (20:36)
[2017-07-25] MEDS: ACETAMINOPHEN 325 MG TABLET PO PRN ×2 (00:42→14:25)
[2017-07-25] MEDS ORDERED: PredniSONE 20 MG TABLET PO SCH (08:00)
[2017-07-25] MEDS: ALBUTEROL/IPRATROPIUM 2.5mg-0.5mg/3ml NEB AEROSOL SCH ×2 (08:50→13:25)
[2017-07-25] MEDS: CITALOPRAM 10 MG TABLET PO SCH (09:26)
[2017-07-25] MEDS: APIXABAN 5 MG TABLET PO SCH (09:28)
[2017-07-25] MEDS: ALLOPURINOL 100 MG TABLET PO SCH (09:28)
[2017-07-25] MEDS: FUROSEMIDE 20 MG/2 ML INJECTION IVP SCH (09:29)
[2017-07-25] MEDS: LANSOPRAZOLE SOLU-TAB 15 MG TABLET PO SCH (09:29)
[2017-07-25] MEDS: CLOTRIMAZOLE 10 MG TROCHE MM SCH ×4 (09:29→17:41)
[2017-07-25] MEDS: SALINE FLUSH 10ml SYRINGE IVF PRN (09:30)
--- NOTE | 2017-07-25 09:40 | XRay Report ---
EXAM: XR chest 2V COMPARISON: 07/21/2017. 07/19/2017. 01/11/2017 CTA chest. 03/13/2011.. HISTORY: F/U . Patient coughing. Nonproductive. On 2 L oxygen. FINDINGS: The cardiomediastinal silhouette is within limits of normal. The pulmonary vascularity appears unremarkable. Some linear opacities are seen at the lung bases which is improved compared to prior exam and may represent improving atelectasis or infiltrate. There is no evidence for pleural effusion. There is no evidence for a pneumothorax. No osseous abnormalities are identified. IMPRESSION: 1. Interval improvement in the ill-defined opacity at right lung base which may represent improving atelectasis or infiltrate. 2. Left basilar atelectatic changes. [place] [facility] [place]
[2017-07-25] MEDS: DOCUSATE SODIUM 100 MG CAPSULE PO PRN (09:41)
[2017-07-25] MEDS ORDERED: acetaZOLAMIDE 250 MG TABLET PO ONE (09:51)
[2017-07-25] MEDS: FLECAINIDE 50 MG TABLET PO SCH (10:22)
--- NOTE | 2017-07-25 10:36 | Progress Note ---
- Date 07/25/17 Subjective: F/U: Acute hypoxic respiratory failure, pneumonia, COPD with acute exacerbation. Doing better today. Slept well last night. Was walking in halls frequently yesterday. Still with cough/congestion. No pain with breathing. O2 needs decreasing; feeling less SOA. Eating well. No ab pain or bowel problems. Urinating well. Not feeling chest pressure or palpitations. Objective Vital signs: Temperature 96.8 F 07/25/17 07:46 Pulse Rate 75 07/25/17 07:46 Respiratory Rate 20 07/25/17 08:51 Blood Pressure 154/72 H 07/25/17 07:46 Pulse Oximetry 95 07/25/17 08:51 Height/Weight/BMI: Height 1.57 m Weight 86.7 kg Body Mass Index 34.4 - Constitutional Present: well nourished, well developed, obese, cooperative - Routine HEENT Exam Head: Present: normocephalic, atraumatic Eye: Present: EOMI, PERRL ENT: Present: mucous membranes moist - Routine Respiratory Exam Present: decreased breath sounds (Coarse bilaterally), prolonged expiratory phase. Absent: respiratory distress - Routine Cardiovascular Exam Present: RRR, no murmur - Routine Abdominal Exam Present: soft, non distended, non tender. Absent: guarding - Routine Extremities Exam Present: cyanosis, clubbing, no edema, pulses intact - Routine Musculoskeletal Exam Musculoskeletal: Present: no clubbing or cyanosis, normal strength - Routine Skin Exam Present: dry, warm - Routine Neurological Exam Present: alert, oriented X3, CN II-XII intact, moving all extremities, vision grossly intact, hearing grossly intact. Absent: motor deficit, altered mental status - Routine Psychiatric Exam Present: normal affect, normal thought process, cooperative, good insight. Absent: anxious, agitated Results - Labs CBC & Chem 7: 07/25/17 04:25 07/25/17 04:25 Microbiology Results: Microbiology 07/20/17 10:10 Peripheral/Iv Start Blood Culture - Preliminary No Growth After 4 Days 07/20/17 11:55 Urine Legionella Urinary Antigen - Final 07/20/17 11:55 Urine Streptococcus pneumoniae Antigen (M - Final Assessment and Plan (1) COPD exacerbation Current visit: Yes Status: Acute (2) Community acquired pneumonia Current visit: Yes Status: Acute (3) Acute respiratory failure with hypoxia Current visit: Yes Status: Acute (4) Atrial fibrillation Current visit: Yes Status: Acute (5) GERD (gastroesophageal reflux disease) Current visit: Yes Status: Acute Assessment and Plan: Assessment Pneumonia Acute hypoxic respiratory failure COPD with acute exacerbation Hypogammaglobulinemia Afib with RVR - converted to NSR with medication on 07/22/17 HTN Mod to severe pulm HTN GERD Decreased TSH Hypokalemia (Not POA) - improved Obesity with BMI 34.5 Plan Encourage continued ambulation to help strength and functional status. Prednisone at 40mg - tolerating well. Change Lasix to 20mg orally daily. Will give Diamox 500mg po x1 as CO2 slightly increased. CXR showing improvement. Recheck patient later today; possible discharge to home if continues to do well. Case discussed with CM and pulm. Time spent with patient care 25 minutes. DVT Prophylaxis: Coriquis Resuscitation Status: Full Code Hospital Course Summary Disclaimer: The visit summary below is not to be considered part of the above Progress Note. Hospital Course: 07/19/17 Admission Assessment COPD exacerbation Community acquired pneumonia Acute respiratory failure with hypoxia Atrial fibrillation - Hx of Plan Solu-Medrol, albuterol prn , DuoNeb, ivf, labs would not inform that this is hypercapnia. Reassess in am. Discussed with patient this will be along term process of healing. Levaquin (higher risk for Pseudomonas and as such Quinolone to start with). Chest X-Ray ordered in ED. Chronically on 2 at night . on 3.5 now. Monitor and should improve as copd is improved and pneumonia treated. 07/20/17 Dr Shaffer Discussed with respiratory therapy, will use [facility] Protocol. Continue IV Solu-Medrol. We'll change to levofloxacin by mouth. We'll obtain blood cultures, sputum culture, [employer] respiratory panel, urine for Legionella antigen and strep pneumo antigen. Previous antibiotic use may decrease the chance of isolating a pathogen in her cultures. Continue the patient on her Cardizem for her atrial fibrillation, she is not on other anticoagulation other than an aspirin at home. Currently she is receiving enoxaparin. Dr Castanon consulted for pulmonary evaluation and treatment recommendations. 07/21/[address] Castanon's help. Continue IV Solu-Medrol. Continue levofloxacin for 5 days total. Continue the patient on her Cardizem for her atrial fibrillation, she is not on other anticoagulation other than an aspirin at home. Currently she is receiving enoxaparin. With consult Dr. Windy Lindsay on Sunday to evaluate the patient for possible IV immunoglobulin secondary to her hypogammaglobulinemia. Blood pressure is slightly elevated, will give IV Lasix 1 and started on Norvasc. Patient has some slight erythema to her tongue will start Mycelex troches. Patient developed afib with RVR - transferred to CCU for IV diltiazem drip. Dr Lind consulted. 07/22/17 Dr Carson Continue IV Solu-Medrol. Continue levofloxacin for 5 days total. Spoke with cardiology. Patient only anticoagulated with Lovenox. Amiodarone used to treat A. fib with RVR. EKG is ordered for a.m. to ensure no prolongation of QT. 07/23/17 Luiza Diltiazem and amiodarone drips stopped - cardiology started Flecainide. Eliquis started for anticoagulation in light of afib. Stop Norvasc in light of Diltiazem use. Decrease Solu-Medrol to 80mg IV q 6 hours. Continue Neb treatment, Acapella. Continue levofloxacin 500mg daily for pneumonia coverage - day 5 of treatment. Check Free T3 & T4 due to decreased TSH - was present at prior hospitalization this year. See by Dr Galdamez at that time. Wean O2 as able. Will consult with PT/OT to help improve her pulmonary debility. Dr Lindsay planning further evaluation of Hypogammaglobulinemia in outpatient setting. As HR improved and not needing drips of cardioversion, will transfer to medical floor on Tele. 07/24/17 Patient completed 5 days of levofloxacin therapy. Change Solu-Medrol to Prednisone 40mg daily. Decrease DuoNeb to RT QID (continue prn). Continue acapella use. Nursing to ambulate QID to help strength. Heart rate and BP stable on Flecainide and diltiazem. Potassium improved. Will recheck CXR tomorrow along with lab. 07/25/17 Encourage continued ambulation to help strength and functional status. Prednisone at 40mg - tolerating well. Change Lasix to 20mg orally daily. Will give Diamox 500mg po x1 as CO2 slightly increased. CXR showing improvement. Recheck patient later today; possible discharge to home if continues to do well.
--- NOTE | 2017-07-25 11:25 | Pulmonology Progress Note ---
Subjective Principal diagnosis: AFIB RVR Interval history: Pt is in bed, states her breathing is doing ok. Slight cough but no sputum or wheezing noted at this time. Currently on O2 at 1L. Exam Vital signs: Temperature 96.8 F 07/25/17 07:46 Pulse Rate 75 07/25/17 07:46 Respiratory Rate 20 07/25/17 08:51 Blood Pressure 154/72 H 07/25/17 07:46 Pulse Oximetry 95 07/25/17 08:51 - Constitutional no acute distress, obese - Routine HEENT Exam Head: Present: normocephalic, atraumatic Eye: Present: EOMI, PERRL - Routine Neck Exam Present: supple, full ROM - Routine Respiratory Exam Present: decreased breath sounds - Routine Cardiovascular Exam Present: RRR, no murmur - Routine Abdominal Exam Present: soft, normoactive bowel sounds - Routine Extremities Exam Present: no edema, non tender, full ROM - Routine Back/Spine/Pelvis Exam Back/Spine: Present: full ROM - Routine Skin Exam Present: intact, dry - Routine Neurological Exam Present: alert, oriented X3, CN II-XII intact - Routine Psychiatric Exam Present: normal affect, normal thought process Progress Note-A&P - Time Spent With Patient Total time spent is greater than 50% in coordination of care (as documented) at patient's floor/unit and/or counseling patient: less than 15 minutes (1) Acute respiratory failure with hypoxia Status: Acute Current Visit: Yes (2) COPD exacerbation Status: Acute Current Visit: Yes (3) Community acquired pneumonia Status: Acute Current Visit: Yes (4) Abnormal CT of the chest Problem details: Hx of lung nodules per patient, next CT to be in Oct/Nov Status: Acute Current Visit: Yes (5) Hypogammaglobulinemia Status: Acute Current Visit: Yes - Assessment and Plan Pt currently on O2 at 1L per NC and tolerating, continue. Currently on pulmicort BID and a/a QID with prednisone 40mg daily, s/p levaquin. IgG was 500' s, needs to f/u OP for IVIG, would continue on inhaled regimen OP and wean steroids. She already has an appt with Dr. Castanon in August and would have her follow up then. Currently improved from a pulmonary standpoint.
--- NOTE | 2017-07-25 15:22 | Cardiology Progress Note ---
<Daphnie Dominique - Last Filed: 07/25/17 16:45> Subjective Principal diagnosis: AFIB RVR Interval history: CC: AFib RVR Pt seen and examined lying in bed after reporting ambulating in halls and tolerated well. She denies chest pain, dizziness. Exam Vital signs: Temperature 97.8 F 07/25/17 11:59 Pulse Rate 75 07/25/17 11:59 Respiratory Rate 16 07/25/17 13:25 Blood Pressure 149/71 H 07/25/17 11:59 Pulse Oximetry 90 07/25/17 13:25 - Constitutional no acute distress - Routine HEENT Exam Head: Present: normocephalic Eye: Present: PERRL, conjunctivae pink ENT: Present: mucous membranes moist - Routine Neck Exam Absent: JVD - Routine Cardiovascular Exam Present: no murmur - Routine Abdominal Exam Present: soft - Routine Neurological Exam Present: alert, oriented X3 - Routine Psychiatric Exam Present: normal affect, cooperative Assessment and Plan - Assessment and Plan (1) COPD exacerbation Status: Acute (2) Community acquired pneumonia Status: Acute (3) Acute respiratory failure with hypoxia Status: Acute (4) Atrial fibrillation with RVR Status: Acute (5) Essential (primary) hypertension Status: Acute - Assessment and Plan AFib RVR HTN Hypoxia COPD exacerbation Pneumonia Flecainide 50mg bid, ECG today Sinus QTc 431ms, Tele SR. Stable from cardiac standpoint for dismissal. Hospital Course Summary Disclaimer: The visit summary below is not to be considered part of the above Progress Note. Hospital Course: 07/19/17 Admission Assessment COPD exacerbation Community acquired pneumonia Acute respiratory failure with hypoxia Atrial fibrillation - Hx of Plan Solu-Medrol, albuterol prn , DuoNeb, ivf, labs would not inform that this is hypercapnia. Reassess in am. Discussed with patient this will be along term process of healing. Levaquin (higher risk for Pseudomonas and as such Quinolone to start with). Chest X-Ray ordered in ED. Chronically on 2 at night . on 3.5 now. Monitor and should improve as copd is improved and pneumonia treated. 07/20/17 Dr Shaffer Discussed with respiratory therapy, will use [facility] Protocol. Continue IV Solu-Medrol. We'll change to levofloxacin by mouth. We'll obtain blood cultures, sputum culture, [employer] respiratory panel, urine for Legionella antigen and strep pneumo antigen. Previous antibiotic use may decrease the chance of isolating a pathogen in her cultures. Continue the patient on her Cardizem for her atrial fibrillation, she is not on other anticoagulation other than an aspirin at home. Currently she is receiving enoxaparin. Dr Castanon consulted for pulmonary evaluation and treatment recommendations. 07/21/[address] Castanon's help. Continue IV Solu-Medrol. Continue levofloxacin for 5 days total. Continue the patient on her Cardizem for her atrial fibrillation, she is not on other anticoagulation other than an aspirin at home. Currently she is receiving enoxaparin. With consult Dr. Windy Lindsay on Sunday to evaluate the patient for possible IV immunoglobulin secondary to her hypogammaglobulinemia. Blood pressure is slightly elevated, will give IV Lasix 1 and started on Norvasc. Patient has some slight erythema to her tongue will start Mycelex troches. Patient developed afib with RVR - transferred to CCU for IV diltiazem drip. Dr Lind consulted. 07/22/17 Dr Carson Continue IV Solu-Medrol. Continue levofloxacin for 5 days total. Spoke with cardiology. Patient only anticoagulated with Lovenox. Amiodarone used to treat A. fib with RVR. EKG is ordered for a.m. to ensure no prolongation of QT. 07/23/17 Luiza Diltiazem and amiodarone drips stopped - cardiology started Flecainide. Eliquis started for anticoagulation in light of afib. Stop Norvasc in light of Diltiazem use. Decrease Solu-Medrol to 80mg IV q 6 hours. Continue Neb treatment, Acapella. Continue levofloxacin 500mg daily for pneumonia coverage - day 5 of treatment. Check Free T3 & T4 due to decreased TSH - was present at prior hospitalization this year. See by Dr Galdamez at that time. Wean O2 as able. Will consult with PT/OT to help improve her pulmonary debility. Dr Lindsay planning further evaluation of Hypogammaglobulinemia in outpatient setting. As HR improved and not needing drips of cardioversion, will transfer to medical floor on Tele. 07/24/17 Patient completed 5 days of levofloxacin therapy. Change Solu-Medrol to Prednisone 40mg daily. Decrease DuoNeb to RT QID (continue prn). Continue acapella use. Nursing to ambulate QID to help strength. Heart rate and BP stable on Flecainide and diltiazem. Potassium improved. Will recheck CXR tomorrow along with lab. 07/25/17 Encourage continued ambulation to help strength and functional status. Prednisone at 40mg - tolerating well. Change Lasix to 20mg orally daily. Will give Diamox 500mg po x1 as CO2 slightly increased. CXR showing improvement. Recheck patient later today; possible discharge to home if continues to do well. <Arsalan Lind - Last Filed: 07/27/17 08:00> Exam Vital signs: Temperature 96.9 F 07/25/17 15:23 Pulse Rate 76 07/25/17 15:23 Respiratory Rate 22 07/25/17 15:23 Blood Pressure 157/68 H 07/25/17 15:23 Pulse Oximetry 87 L 07/25/17 15:00 Assessment and Plan - Assessment and Plan (1) COPD exacerbation Status: Acute (2) Community acquired pneumonia Status: Acute (3) Acute respiratory failure with hypoxia Status: Acute (4) Atrial fibrillation with RVR Status: Acute (5) Essential (primary) hypertension Status: Acute - Attestation Attestation Narrative: 07/27/17 08:00 Recommendation After examining the patient I agree with the above assessment. I am involved in the formulation of the patient's plan of care. Hospital Course Summary Disclaimer: The visit summary below is not to be considered part of the above Progress Note.
[2017-07-25 15:25] VITALS: BP 157/68; PULSE 76; RESP 22; TEMP 96.9
[2017-07-25 15:28] VITALS: O2SAT 87
--- NOTE | 2017-07-25 15:32 | Discharge Summary ---
Discharge Information Date of admission: 07/19/17 19:02 Anticipated date of discharge: 07/25/17 Attending Physician: Silvio Jarrett MD Primary care physician: Feli Santiago DO Consults: Physician Consult: Leodan Castanon Reason For Exam: COPD RML infiltrate Physician Consult: Windy Lindsay Reason For Exam: hypogammaglobulinemia IgG 311 Physician Consult: Arsalan Lind Reason For Exam: Afib RVR PT/OT - Discharge Diagnosis (1) Community acquired pneumonia Status: Acute (2) COPD exacerbation Status: Acute (3) Acute respiratory failure with hypoxia Status: Acute (4) Atrial fibrillation Status: Acute (5) GERD (gastroesophageal reflux disease) Status: Chronic - Procedures Procedures: Date of Exam: 07/23/17 Type of Exam: US echo doppler complete Left atrial dimension is normal. Left ventricular end-diastolic dimension is normal. Left ventricular wall thickness is normal. LV systolic function is normal with ejection fraction of about 70%. Right atrium is normal. Right ventricle is normal. Aortic root dimension is normal. Mitral valve is morphologically normal with trace of mitral regurgitation. Aortic valve was not visualized well but Doppler studies indicate no stenosis or insufficiency. Tricuspid valve shows trace of tricuspid regurgitation with moderate pulmonary hypertension with estimated pulmonary artery systolic pressure of 44. Pulmonary valve shows no pulmonary insufficiency. There is no pericardial effusion. IMPRESSION 1. Technically difficult study. 2. Normal LV systolic function with ejection fraction of 70%. 3. Trace of mitral regurgitation. 4. Trace of tricuspid regurgitation with moderate pulmonary hypertension with estimated pulmonary artery systolic pressure of 44. - Laboratory Labs: Admit Lab 07/19/17 17:56 WBC 8.8 Hgb 12.3 Hct 39.3 MCV 92.5 Plt Count 253 Immature Gran % (Auto) 1.4 H Neut % (Auto) 84.5 H Lymph % (Auto) 9.8 L Admit Lab 07/19/17 17:56 Sodium 145 H Potassium 4.9 Chloride 113 H Carbon Dioxide 23 Anion Gap 9 BUN 27.0 H Creatinine 1.1 GFR Calculation 48 BUN/Creatinine Ratio 25 Glucose 111 H Calculated Osmolality 285 H Calcium 9.4 Icterus Index < 2 Troponin I < 0.012 Thyroid Tests 07/22/17 07/24/17 11:21 05:33 TSH 0.14 L Free T4 0.90 Free T3 2.85 IGG Test 07/20/17 04:38 IgG 311.84 L Liver Function Tests 07/20/17 07/23/17 04:43 03:55 Total Bilirubin 0.60 0.50 AST 26 27 ALT 36 36 Alkaline Phosphatase 60 52 Total Protein 5.6 L Albumin 3.9 3.3 L Globulin 2.5 2.3 L Albumin/Globulin Ratio 1.6 1.4 07/25/17 04:25 07/25/17 04:25 - Microbiology Microbiology 07/20/17 10:10 Peripheral/Iv Start Blood Culture - Final No Growth After 5 Days 07/20/17 11:55 Urine Legionella Urinary Antigen - Final 07/20/17 11:55 Urine Streptococcus pneumoniae Antigen (M - Final - Radiology Radiology: Date of Exam: 07/19/17 PROCEDURE: CHEST 2-VIEWS UPRIGHT (PA & LAT) FINDINGS: New airspace consolidation in the right middle lobe with obscuration of the right heart border. Left lung appears clear. There is no pleural effusion or pneumothorax. The heart size, mediastinal contours and pulmonary vascularity are within normal limits. There is no significant skeletal abnormality. IMPRESSION: Right middle lobe pneumonia or atelectasis. Date of Exam: 07/21/17 PROCEDURE: CHEST 2-VIEWS UPRIGHT (PA & LAT) FINDINGS: Right middle lobe airspace consolidation is grossly stable. No new areas of airspace disease. No pleural effusion or pneumothorax. Heart size, pulmonary vascularity and mediastinal contours are stable. Impression: Stable right middle lobe pneumonia. Date of Exam: 07/25/17 Type of Exam: XR chest 2V FINDINGS: The cardiomediastinal silhouette is within limits of normal. The pulmonary vascularity appears unremarkable. Some linear opacities are seen at the lung bases which is improved compared to prior exam and may represent improving atelectasis or infiltrate. There is no evidence for pleural effusion. There is no evidence for a pneumothorax. No osseous abnormalities are identified. IMPRESSION: 1. Interval improvement in the ill-defined opacity at right lung base which may represent improving atelectasis or infiltrate. 2. Left basilar atelectatic changes. History of Present Illness HPI: This is a 76 y/o female with copd oxygen at night dependent 2l. Patient with increased dyspnea over the past 2 weeks. She has seen her PCP who has escalated her treatment to include 80 mg prednisone daily with nebulized therapy. The patent's symptoms have progressed and she is brought to the ED and found to be more hypoxic. CXR suggests right middle lobe pneumonia. The patient has a cough that is persistent and at times productive of yellow sputum. She is currently on Augmentin The patient has remarkable dyspnea with any activity. For complete details of the H&P refer to that document. Objective Vital signs: Temperature 96.9 F 07/25/17 15:23 Pulse Rate 76 07/25/17 15:23 Respiratory Rate 22 07/25/17 15:23 Blood Pressure 157/68 H 07/25/17 15:23 Pulse Oximetry 87 L 07/25/17 15:00 Height/Weight/BMI: Height 1.57 m Weight 86.7 kg Body Mass Index 34.4 Hospital Course This is a general summary of the patient's hospital course. For more details refer to the complete medical record. Hospital course: 07/19/17 Admission Assessment COPD exacerbation Community acquired pneumonia Acute respiratory failure with hypoxia Atrial fibrillation - Hx of Plan Solu-Medrol, albuterol prn , DuoNeb, ivf, labs would not inform that this is hypercapnia. Reassess in am. Discussed with patient this will be along term process of healing. Levaquin (higher risk for Pseudomonas and as such Quinolone to start with). Chest X-Ray ordered in ED. Chronically on 2 at night . on 3.5 now. Monitor and should improve as copd is improved and pneumonia treated. 07/20/17 Dr Shaffer Discussed with respiratory therapy, will use [facility] Protocol. Continue IV Solu-Medrol. We'll change to levofloxacin by mouth. We'll obtain blood cultures, sputum culture, DIRECTOR PERSONAL respiratory panel, urine for Legionella antigen and strep pneumo antigen. Previous antibiotic use may decrease the chance of isolating a pathogen in her cultures. Continue the patient on her Cardizem for her atrial fibrillation, she is not on other anticoagulation other than an aspirin at home. Currently she is receiving enoxaparin. Dr Castanon consulted for pulmonary evaluation and treatment recommendations. 07/21/[address] Castanon's help. Continue IV Solu-Medrol. Continue levofloxacin for 5 days total. Continue the patient on her Cardizem for her atrial fibrillation, she is not on other anticoagulation other than an aspirin at home. Currently she is receiving enoxaparin. With consult Dr. Windy Lindsay on Sunday to evaluate the patient for possible IV immunoglobulin secondary to her hypogammaglobulinemia. Blood pressure is slightly elevated, will give IV Lasix 1 and started on Norvasc. Patient has some slight erythema to her tongue will start Mycelex troches. Patient developed afib with RVR - transferred to CCU for IV diltiazem drip. Dr Lind consulted. 07/22/17 Dr Carson Continue IV Solu-Medrol. Continue levofloxacin for 5 days total. Spoke with cardiology. Patient only anticoagulated with Lovenox. Amiodarone used to treat A. fib with RVR. EKG is ordered for a.m. to ensure no prolongation of QT. 07/23/17 Luiza Diltiazem and amiodarone drips stopped - cardiology started Flecainide. Eliquis started for anticoagulation in light of afib. Stop Norvasc in light of Diltiazem use. Decrease Solu-Medrol to 80mg IV q 6 hours. Continue Neb treatment, Acapella. Continue levofloxacin 500mg daily for pneumonia coverage - day 5 of treatment. Check Free T3 & T4 due to decreased TSH - was present at prior hospitalization this year. See by Dr Galdamez at that time. Wean O2 as able. Will consult with PT/OT to help improve her pulmonary debility. Dr Lindsay planning further evaluation of Hypogammaglobulinemia in outpatient setting. As HR improved and not needing drips of cardioversion, will transfer to medical floor on Tele. 07/24/17 Patient completed 5 days of levofloxacin therapy. Change Solu-Medrol to Prednisone 40mg daily. Decrease DuoNeb to RT QID (continue prn). Continue acapella use. Nursing to ambulate QID to help strength. Heart rate and BP stable on Flecainide and diltiazem. Potassium improved. Will recheck CXR tomorrow along with lab. 07/25/17 Encourage continued ambulation to help strength and functional status. Prednisone at 40mg - tolerating well. Change Lasix to 20mg orally daily. Will give Diamox 500mg po x1 as CO2 slightly increased. CXR showing improvement. Recheck patient later today; possible discharge to home if continues to do well. Rechecked patient this afternoon. Doing well. Ambulating well. Medically stable for discharge. Discharge cleared with cardiology and pulmonology. Will have patient follow up with Dr Naqvi in 1 week for medical reevaluation. Keep previously scheduled follow up with Dr Lind and Lg. Will need to see Dr Lindsay in 2 weeks for evaluation of IGG. See orders for details. During hospitalization Diltiazem increased from 180mg to 240mg and Flecainide 50mg BID and Eliquis 5mg BID added for Afib. Discharge diagnosis Pneumonia Associated conditions and complications Acute hypoxic respiratory failure COPD with acute exacerbation Hypogammaglobulinemia Afib with RVR - converted to NSR with medication on 07/22/17 HTN Mod to severe pulm HTN GERD Stage III CKD Decreased TSH Hypokalemia (Not POA) - improved Hypernatremia (POA) - resolved Obesity with BMI 34.5 Time spent with patient: discharge greater than 30 minutes DVT Prophylaxis: Eliquis Discharge Plan - Med Rec/Dispo Referrals/Follow Up: Feli Santiago DO [Family Provider] - 1 Week (Hospital follow up for pneumonia ) Windy Lindsay MD [Physician] - 2 Weeks (Hopsital follow up for IGG deficiency ) Leodan Castanon MD [Physician] - (Keep previously scheduled appointment ) Arsalan Lind MD [Physician] - (Keep previously scheduled appointment ) [place] Instructions: COPD (Chronic Obstructive Pulmonary Disease) (GEN) Prescriptions: New DiltiaZEM CD [Cardizem Cd] 240 mg PO DAILY #30 capsule Flecainide [Tambocor] 50 mg PO BID #60 tab Apixaban [Eliquis] 5 mg PO BID #60 tab Clotrimazole June [Mycelex June] 10 mg MM 5XD #30 june PredniSONE [Deltasone] 40 mg PO WB #14 tablet Continue Meloxicam 15 mg PO DAILY PRN #0 PRN Reason: PAIN Gabapentin 600 mg PO HS #0 Potassium Chloride 10 meq PO DAILY PRN #0 PRN Reason: WITH FUROSEMIDE Acetaminophen [Tylenol Extra Strength] 1,000 mg PO Q6H PRN #0 PRN Reason: PAIN Albuterol Sulfate [Ventolin Hfa] 1 puff INH DAILY PRN #0 PRN Reason: PRN ORDERS Lansoprazole [Prevacid] 15 mg PO BID #0 Citalopram Hydrobromide [Citalopram HBr] 10 mg PO DAILY #0 Promethazine + Dm Liq [Phenergan Dm Syrup] 5 ml PO Q4H PRN PRN Reason: Cough LORazepam [Ativan] 0.5 mg PO HS PRN PRN Reason: Prn Orders Furosemide [Lasix] 20 mg PO DAILY PRN PRN Reason: Prn Orders Gabapentin 100 mg PO TID PRN #0 PRN Reason: PRN ORDERS Allopurinol 100 mg PO DAILY #0 Discontinued Amox/Clav [Augmentin] 1 tab PO BID dilTIAZem HCl [Cartia Xt] 180 mg PO DAILY PredniSONE [Deltasone] 80 mg PO DAILY Discharge Instructions/Outpatient Orders: Provider Discharge Instructions Location: Determined By Patient - Disposition 01 Discharged Home, Self-Care - Attestation Attestation Narrative: 07/25/17 15:58 I have independently interviewed and examined patient prior to discharge. See my progress note from today for details. Medically stable for discharge to home.
[2017-07-25] MEDS: GUAIFENESIN/CODEINE 5ml ORAL LIQUID PO PRN (15:57)
[2017-07-26] MEDS ORDERED: FUROSEMIDE 20 MG TABLET PO SCH (09:00)
== END 2017-07-25 17:51 | disposition home or self-care (01) | DRG 193 ==
LOC: ED 16:36 → MED 19:02 → SUATTDRO 19:02 → MED 19:25 → CCU 07-21 23:20 → MED 07-23 13:25
PROVIDERS: ADMIT Emergency Medicine; ATTEND Hospitalist

== ENCOUNTER 2018-04-19 05:48 | Inpatient (IN) ==
[2018-04-19] MEDS ORDERED: ALBUTEROL/IPRATROPIUM 2.5mg-0.5mg/3ml NEB AEROSOL ONE (05:57)
[2018-04-19] MEDS ORDERED: METHYLPREDNISOLONE SOD SUCC 125mg/2ml INJECTION IVP ONE (05:57)
[2018-04-19] MEDS ORDERED: SALINE FLUSH 10ml SYRINGE IVF PRN (06:09)
--- NOTE | 2018-04-19 06:13 | Emergency Department Report ---
General Adult HPI - General Chief complaint: Shortness of Breath/Dyspnea Stated complaint: Diff BR Time Seen by Provider: 04/19/18 06:04 Source: patient, EMS Mode of arrival: EMS Limitations: no limitations - History of Present Illness HPI narrative: 77 F presents to the ED with the chief complaint of a cough and shortness of breath. Patient has been having increasing shortness of breath over the past week. She saw her primary care physician yesterday and was diagnosed with a COPD exacerbation and started on prednisone. She denies any pain or discomfort. She noted increasing symptoms over night and presents to the emergency department for evaluation today. She does use 2 L by nasal cannula due to COPD. She was at home when her symptoms began. Symptoms have persisted in nature since onset. No other complaints or associated symptoms. Patient is anti-coagulated on Eliquis. - Related Data Home Medications Medication Instructions Recorded Confirmed Prilosec (Omeprazole) 20 mg 20 mg PO BID 90 Days #180 cap 09/18/17 04/19/18 capsule,delayed release Allopurinol [Zyloprim] 100 mg PO PRN PRN 11/26/17 04/19/18 Gabapentin [Neurontin] 600 mg PO HS 03/15/18 04/19/18 Acetaminophen [Tylenol Arthritis] 650 mg PO PRN PRN 03/18/18 04/19/18 Albuterol HFA Inhaler [Ventolin 1 puff ORAL INH PRN PRN 03/18/18 04/19/18 Hfa 90 mcg/actuation] Furosemide [Lasix] 20 mg PO PRN PRN 04/19/18 04/19/18 dilTIAZem HCl [Cartia Xt] 180 mg PO DAILY 04/19/18 04/19/18 Previous Rx's Medication Instructions Recorded Apixaban [Eliquis] 5 mg PO BID #60 tab 07/25/17 Flecainide [Tambocor] 50 mg PO BID #60 tab 07/25/17 Hydrocodone/APAP 5/325 [Ramona 1 - 2 tab PO Q6HR PRN #10 tab 03/18/18 5/325] Ibuprofen [Motrin] 400 - 800 mg PO Q6H PRN tab 03/18/18 Allergies Allergy/AdvReac Type Severity Reaction Status Date / Time cefaclor AdvReac Intermediate "loss of Verified 03/18/18 08:29 muscle control" Review of Systems Constitutional: Denies: fever, chills Eyes: Denies: eye pain, vision change ENT: Denies: ear pain, throat pain Cardiovascular: Denies: chest pain, palpitations Respiratory: Reports: cough, dyspnea, wheezes. Denies: hemoptysis Gastrointestinal: Denies: abdominal pain, nausea, vomiting, diarrhea Genitourinary: Denies: urgency, dysuria Musculoskeletal: Denies: back pain, arthralgia Integumentary: Denies: erythema, rash Neurological: Denies: headache, numbness, paresthesias Psychiatric: Denies: anxiety, depression Endocrine: Denies: polydipsia, polyuria Hematological/Lymphatic: Denies: easy bruising, lymphadenopathy Allergic/Immunologic: Denies: facial swelling, urticaria PFSH Patient Stated Medical History Cataracts Yes Cardiac Arrhythmia Yes: A FIB Congestive Heart Failure Yes: per H&P Hypertension Yes Asthma Yes Bronchitis Yes Chronic Obstructive Pulmonary Yes Disease (COPD) Pneumonia Yes Sleep Apnea Yes: copd/chf Gastroesophageal Reflux Yes: well controlled with meds Disease Ulcer Yes Shingles Yes Anesthesia Reactions Yes: airway problems Clinic Medical History (Last Updated 02/20/18 @ 13:15 by Kenna Huber) Anxiety (Acute Medical) Bronchitis (Acute Medical) CHF (congestive heart failure) (Acute Medical) Cataract (Acute Medical) Emphysema/COPD (Acute Medical) High blood pressure (Acute Medical) High cholesterol (Acute Medical) Hx of cataract (Acute Medical) Neuropathy (Acute Medical) Osteoarthritis (Acute Medical) Pneumonia (Acute Medical) Surgical History: TAHBSO, appendectomy, cholecystectomy, arthroscopic procedure knee, cataract removal. insertion of PowerPort 03/18/2018 for IVIG therapy Derrick. Family History: Family History (Last Updated 02/20/18 @ 13:17 by Kenna Huber) Mother Cancer of lung Cancer Father Heart attack Arthritis Heart failure Brother Cancer of colon Skin cancer (melanoma) - Social History Smoking status: Former smoker Substance use type: does not use Alcohol intake frequency: holidays/special occasions only Household members: none Current occupational status: retired Current residence: Apartment/Private Home Physical Exam - Limitations Limitations: no limitations - General General appearance: alert, in no apparent distress - Normal Exams: Head:: Normocephalic without trauma Eyes:: Pupils are PERRLA w/ EOMI, No scleral icterus, irritation, or foreign bodies noted ENMT:: No facial trauma, nasal exudates, pharyngeal erythema, or exudates are noted Dental: No fractured, loose, or missing teeth noted Neck:: Full range of motion, without adenopathy, JVD, bruits or thyromegaly Chest/Respirations:: Clear all mott (Bilateral harsh end expiratory wheezes. ) , with good airflow, and symmetry bilaterally Cardiovascular:: Regular rate and rhythm, without murmur or gallop, Pulses 2+ all extremities, capillary refill, <2 seconds all extremities Abdomen:: Bowel sounds positive, soft, non-tender, non-distended, no hepatosplenomegaly, masses or bruits noted Musculoskeletal:: No tenderness, or deformity noted, good range of motion, all extremities Integumentary:: No rashes, hives, or bruising noted, hair and nails, without abnormality Neurological:: Patient is alert, and oriented, cranial nerves, motor/sensory/ cerebellar, exams w/o gross deficits, to observation Psychiatric:: Patient exhibits, appropriate attention, emotion and affect Course Vital Signs Pulse Rate 94 04/19/18 05:48 Respiratory Rate 24 04/19/18 05:48 Blood Pressure 181/73 H 04/19/18 05:48 Pulse Oximetry 78 L 04/19/18 05:48 Temperature 96.6 F L 04/19/18 15:26 Pulse Rate 77 04/19/18 15:26 Respiratory Rate 20 04/19/18 15:26 Blood Pressure 147/69 H 04/19/18 15:26 Pulse Oximetry 93 04/19/18 15:26 Medical Decision Making - [facility] Narrative Medical decision making narrative: Labs/imaging were discussed in detail with the patient and questions are answered. Patient received 2 DuoNeb treatments from EMS prior to arrival to the emergency department. A 3rd DuoNeb treatment is given in the emergency department with improvement of symptoms per patient. Patient is on 5 L by nasal cannula and is maintaining her oxygen saturation between 91-94%. She will be weaned as tolerated. Patient is given Levaquin 750 mg IV times one at 0756 when sespsis was considered. She was never hypotensive in the emergency department and her lactic acid was less than 4. Patient is discussed with Dr. Stanley who agrees to accept the patient to his service for further evaluation and treatment. No further orders from accepting physician who is in agreement with the current plan of management. Patient is admitted to the service of the hospitalist in improved condition. Patient is in agreement with the current plan of management. She was also given Solu-Medrol 125 mg IV 1 in the emergency department. Patient is given Levaquin 750 mg IV times one at 0756 when sespsis was considered. She was never hypotensive in the emergency department and her lactic acid was less than 4. - Differential Diagnosis COPD, PNA, Viral syndrome, metabolic disorder - Lab Data Result diagrams: 04/19/18 06:17 04/19/18 06:17 Lab Results 04/19/18 04/19/18 04/19/18 Range/Units 06:17 06:17 06:17 WBC 8.0 (4.5-11.0) T/MM3 RBC 3.65 L (4.00-5.20) M/MM3 Hgb 10.8 L (12-16) GM/DL Hct 33.4 L (36-46) % MCV 91.5 (80-100) UM3 MCH 29.6 (26-34) UUG MCHC 32.3 (31-37) GM/DL RDW Std Deviation 47.0 (36.9-50.2) FL Plt Count 210 (130-400) T/MM3 MPV 10.7 (9.4-12.4) UM3 Immature Gran % (Auto) 0.2 (0.0-0.5) % Neut % (Auto) 65.1 (33-66) % Lymph % (Auto) 28.5 (23-45) % Hyde % (Auto) 5.6 (0-9.0) % Eos % (Auto) 0.5 (0-4) % Baso % (Auto) 0.1 (0-2) % Neut # (Auto) 5.2 (1.8-7.7) T/MM3 Lymph # (Auto) 2.3 (1-4.8) T/MM3 Hyde # (Auto) 0.5 (0-0.8) T/MM3 Eos # (Auto) 0.0 (0-0.5) T/MM3 Baso # (Auto) 0.0 (0-0.2) T/MM3 Abs Immat Gran (auto) 0.02 (0.00-0.03) T/MM3 Turbidity < 20 (0-20) Sodium 145 (136-146) MEQ/L Potassium 3.9 (3.6-5) MEQ/L Chloride 112 H (98-107) MEQ/L Carbon Dioxide 24 (22-30) MEQ/L Anion Gap 9 (5-15) meq/L BUN 25.0 H (7-17) MG/DL Creatinine 0.9 (0.7-1.2) mg/dL GFR Calculation 61 BUN/Creatinine Ratio 28 H (6-26) RATIO Glucose 92 (65-110) MG/DL Calculated Osmolality 283 H (261-280) MOSM/KG Calcium 8.3 L (8.4-10.2) MG/DL Total Bilirubin 0.40 (0.20-1.30) MG/DL Icterus Index < 2 (0-7) AST 22 (14-36) U/L ALT 14 (1-35) U/L Alkaline Phosphatase 78 (38-126) U/L Troponin I < 0.012 (0-0.12) ng/ml NT-Pro-B Natriuret Pep 356 H (0-175) pg/mL Total Protein 6.0 L (6.3-8.2) g/dL Albumin 3.6 (3.5-5.0) g/dL Globulin 2.4 (2.4-3.6) G/DL Albumin/Globulin Ratio 1.5 (1.1-2.2) RATIO Plasma Lactate (0.6-2.2) MMOL/L Procalcitonin NG/ML Specimen Hemolysis < 15 (0-25) 04/19/18 04/19/18 Range/Units 06:37 06:41 WBC (4.5-11.0) T/MM3 RBC (4.00-5.20) M/MM3 Hgb (12-16) GM/DL Hct (36-46) % MCV (80-100) UM3 MCH (26-34) UUG MCHC (31-37) GM/DL RDW Std Deviation (36.9-50.2) FL Plt Count (130-400) T/MM3 MPV (9.4-12.4) UM3 Immature Gran % (Auto) (0.0-0.5) % Neut % (Auto) (33-66) % Lymph % (Auto) (23-45) % Hyde % (Auto) (0-9.0) % Eos % (Auto) (0-4) % Baso % (Auto) (0-2) % Neut # (Auto) (1.8-7.7) T/MM3 Lymph # (Auto) (1-4.8) T/MM3 Hyde # (Auto) (0-0.8) T/MM3 Eos # (Auto) (0-0.5) T/MM3 Baso # (Auto) (0-0.2) T/MM3 Abs Immat Gran (auto) (0.00-0.03) T/MM3 Turbidity (0-20) Sodium (136-146) MEQ/L Potassium (3.6-5) MEQ/L Chloride (98-107) MEQ/L Carbon Dioxide (22-30) MEQ/L Anion Gap (5-15) meq/L BUN (7-17) MG/DL Creatinine (0.7-1.2) mg/dL GFR Calculation BUN/Creatinine Ratio (6-26) RATIO Glucose (65-110) MG/DL Calculated Osmolality (261-280) MOSM/KG Calcium (8.4-10.2) MG/DL Total Bilirubin (0.20-1.30) MG/DL Icterus Index (0-7) AST (14-36) U/L ALT (1-35) U/L Alkaline Phosphatase (38-126) U/L Troponin I (0-0.12) ng/ml NT-Pro-B Natriuret Pep (0-175) pg/mL Total Protein (6.3-8.2) g/dL Albumin (3.5-5.0) g/dL Globulin (2.4-3.6) G/DL Albumin/Globulin Ratio (1.1-2.2) RATIO Plasma Lactate 2.8 H (0.6-2.2) MMOL/L Procalcitonin < 0.05 NG/ML Specimen Hemolysis (0-25) - Radiology Data Chest x-ray: Right lower lobe atelectasis versus infiltrate. - EKG Data EKG #1 EKG results narrative: Sinus Rhythm. 78 bpm. No STEMI. Disposition Clinical Impression: COPD exacerbation Pneumonia Qualifiers: Pneumonia type: due to unspecified organism Laterality: right Lung location: lower lobe of lung Qualified Code(s): J18.1 - Lobar pneumonia, unspecified organism Disposition: 02 To [facility] [place] Condition: Improved Time of Disposition: 07:15 - Seen By: physician
[2018-04-19] MEDS: SALINE FLUSH 10ml SYRINGE IVF PRN ×4 (06:19→16:37)
--- OUTSIDE RECORDS SUMMARY | 2018-04-19 06:29 | External Medical Summary | Referral Summary ---
:1940 Author Organization [facility] [address] [place] [address] Care Team Providers Name Role Phone Feli Santiago Primary Care Physician Encounter VC Date(s): 07/16/17 - 07/16/17 [facility] [address] [place] [phone] [place] Discharge Diagnosis: COPD with acute exacerbation Discharge Disposition: 01-Home or Self Care Attending Physician: Feli Santiago DO Admitting Physician: Feli Santiago DO Vital Signs Most recent to oldest [Reference Range]: 1 Temperature Tympanic [36.6-38.1 degC] 37.0 degC (07/16/17 2:47 PM) Peripheral Pulse Rate [60-100 bpm] 84 bpm (07/16/17 2:47 PM) Blood Pressure [90-140/60-90 mmHg] 146/80 mmHg *HI* (07/16/17 2:47 PM) SpO2 92 % (07/16/17 2:47 PM) Problem List Condition Effective Dates Status Health Status Informant COPD with acute Active exacerbation(Confirmed) Anxiety(Confirmed) Active Asthma(Confirmed) Active Benign hypertension(Confirmed) Active Spondylosis of cervical Active joint(Confirmed) COPD (chronic obstructive pulmonary Active disease)(Confirmed) Chronic pain(Confirmed) Active Degenerative disc disease, Active cervical(Confirmed) Gout(Confirmed) Active Adult hypothyroidism(Confirmed) Active Cervicalgia(Confirmed) Active Obesity(Confirmed) Active patient Osteoarthritis(Confirmed) Active Acute and chronic respiratory failure Active with hypoxia(Confirmed) Restless leg syndrome(Confirmed) Active Acquired spondylolisthesis(Confirmed) Active Tobacco user(Confirmed) Active patient Allergies, Adverse Reactions, Alerts Substance Reaction Severity Status cefaclor MUSCLES RELAX Active Medications albuterol 2.5 mg/3 mL (0.083%) inhalation solution 2.5 mg 3 mL, Inhalation, q2hr, as needed for wheezing, DX: J44.9, # 100 Each, 4 Refill(s), Pharmacy:[facility] #[id number], 3 mL Inhalation q2hr,PRN:as needed for wheezing,Instr:DX: J44.9 Start Date: 01/16/17 Status: Orderedalbuterol 2.5 mg/3 mL (0.083%) inhalation solution 2.5 mg 3 mL, Inhalation, Daily, as needed for wheezing, Dx: J44.9, # 30 vials, 3 Refill(s), Pharmacy: [facility] #[id number], 3 mL Inhalation Daily,PRN:as needed for wheezing,Instr:Dx: J44.9 Start Date: 04/16/17 Status: Orderedallopurinol 100 mg oral tablet See Instructions, TAKE ONE TABLET BY MOUTH DAILY, # 90 tabs, 1 Refill(s), eRx: [facility] #[id number] Start Date: 02/12/17 Status: OrderedamLODIPine 5 mg oral tablet 5 mg 1 tabs, Oral, Daily, for blood pressures above 140, # 30 tabs, 11 Refill(s) , Pharmacy: [facility] #[id number], 1 tabs Oral Daily,Instr:for blood pressures above 140 Start Date: 08/14/16 Status: Orderedarformoterol 15 mcg/2 mL inhalation solution 1 Each, NEB, BID, Dx: J44.9, # 120 vials, 3 Refill(s), Pharmacy: [facility] #[id number] Start Date: 04/16/17 Status: Orderedaspirin 81 mg, Oral, Daily, 0 Refill(s) Start Date: 06/30/14 Status: OrderedAtivan 0.5 mg oral tablet 0.5 mg 1 tabs, Oral, Bedtime (once a day), # 30 tabs, 0 Refill(s) Start Date: 02/01/17 Status: OrderedAugmentin 875 mg-125 mg oral tablet 1 tabs, Oral, q12hr, X 10 days, # 20 tabs, 0 Refill(s), Pharmacy: [facility] #[id number] Start Date: 07/16/17 Stop Date: 07/26/17 Status: OrderedBreo Ellipta 100 mcg-25 mcg/inh inhalation powder 1 puffs, Inhalation, Daily, SAMPLE GIVEN, # 30 Each, 0 Refill(s) Start Date: 05/15/16 Status: Orderedbudesonide 0.5 mg/2 mL inhalation suspension 0.5 mg 2 mL, NEB, BID, Dx: J44.9, # 120 vials, 3 Refill(s), Pharmacy: [facility] #[id number], 2 mLNEB BID,Instr:Dx: J44.9 Start Date: 04/16/17 Status: OrderedCartia XT 180 mg/24 hours oral capsule, extended release See Instructions, TAKE ONE CAPSULE BY MOUTH DAILY, # 30 caps, 2 Refill(s), eRx: [facility] #[id number] Start Date: 06/26/17 Status: Orderedcitalopram 10 mg oral tablet 10 mg 1 tabs, Oral, Daily, # 30 tabs, 11 Refill(s), Pharmacy: [facility] # [id number], 1 tabs Oral Daily Start Date: 08/14/16 Status: Ordereddoxycycline hyclate 100 mg oral capsule 100 mg 1 caps, Oral, BID, X 10 days, # 20 caps, 0 Refill(s), Pharmacy: [facility] #[id number], 1 caps Oral BID,x10 days Start Date: 07/10/17 Stop Date: 07/20/17 Status: Orderedfurosemide 20 mg oral tablet See Instructions, TAKE ONE TABLET BY MOUTH DAILY, # 90 tabs, eRx: [facility] #[id number] Start Date: 04/09/17 Status: Orderedgabapentin 100 mg oral capsule 100 mg 1 caps, Oral, TID, as needed for pain, # 270 caps, 2 Refill(s), Pharmacy : [facility] #[id number], 1 caps Oral TID,PRN:as needed for pain Start Date: 04/10/17 Status: Orderedgabapentin 600 mg oral tablet See Instructions, TAKE ONE TABLET BY MOUTH AT BEDTIME WITH 100MG TAB, # 90 tabs , 2 Refill(s), Pharmacy: [facility] #[id number], TAKE ONE TABLET BY MOUTH AT BEDTIME WITH 100MG TAB Start Date: 04/10/17 Status: Orderedgabapentin 600 mg oral tablet 600 mg 1 tabs, Oral, Bedtime (once a day), # 90 tabs, 0 Refill(s), Pharmacy: [facility] #[id number], 1 tabs Oral Bedtime (once a day) Start Date: 01/09/17 Status: Orderedipratropium 500 mcg/2.5 mL inhalation solution 500 mcg 2.5 mL, NEB, QID, Dx: J44.9, # 300 vials, 3 Refill(s), Pharmacy: [facility] #[id number], 2.5 mL NEB QID,Instr:Dx: J44.9 Start Date: 04/16/17 Status: Orderedipratropium-albuterol 0.5 mg-2.5 mg/3 mLinhalation solution See Instructions, INHALE ONE VIAL VIA NEBULIZER BY MOUTH FOUR TIMES A DAY DX: J44.9(MEDICAR B LIMITS2 DOSES PER DAY), # 180 mL, 2 Refill(s), Pharmacy: [facility] #[id number] Start Date: 01/02/17 Status: Orderedmeloxicam 15 mg oral tablet 15 [...] # 90 tabs, 0 Refill(s) Start Date: 07/10/17 Status: Orderedomeprazole 20 mg oral delayed release capsule See Instructions, TAKE ONE CAPSULE BY MOUTH TWICE A DAY, # 180 caps, eRx: [facility] #[id number] Start Date: 04/24/17 Status: Orderedpotassium chloride 10 mEq oral tablet, extended release See Instructions, TAKE 1 TABLET BY MOUTH EVERY DAY, # 30 unknown unit, 2 Refill( s), eRx: [facility] #[id number], TAKE 1 TABLET BY MOUTH EVERY DAY Start Date: 01/12/15 Status: OrderedpredniSONE 10 mg oral tablet See Instructions, 60mg x4 days 50mg x4 days 40mg x4 days 30mg x4 days 20mg x4 days 10mg x4 days, # 84 tabs, 0 Refill(s), Pharmacy: [facility] # [id number], 60mg x4 days; 50mg x4 days; 40mg x4 days; 30mg x4 days; 20mg x4 days ; 10mg x4 days Start Date: 05/28/17 Status: OrderedpredniSONE 20 mg oral tablet See Instructions, 80mg x4 days 70mg x4 days 60mg x4 days 50mg x4 days 40mg x4 days 30mg x4 days 20mg x4 days 10mg x4 days, # 126 tabs, 0 Refill(s), Pharmacy: [facility] #[id number], 80mg x4 days; 70mg x4 days; 60mg x4 days; 50mg x4 days; 40mg... Start Date: 07/16/17 Status: OrderedPromethazine DM 6.25 mg-15 mg/5 mL oral syrup 5 mL, Oral, q6hr, as needed for cough, # 120 mL, 0 Refill(s), Pharmacy: [facility] #[id number] Start Date: 09/14/16 Status: OrderedPromethazine DM 6.25 mg-15 mg/5 mL oral syrup 5 mL, Oral, q6hr, as needed for cough, # 120 mL, 0 Refill(s), Pharmacy: [facility] #[id number] Start Date: 07/10/17 Status: OrderedraNITIdine 150 mg oral capsule See Instructions, TAKE ONE CAPSULE BY MOUTH TWICE A DAY FOR 14 DAYS, # 28 caps, eRx: [facility] #[id number] Start Date: 06/28/17 Status: Orderedsucralfate 1 g oral tablet See Instructions, TAKE ONE TABLET BY MOUTH FOUR TIMES A DAY FOR 7 DAYS, # 28 tabs, eRx: [facility] #[id number] Start Date: 06/25/17 Status: OrderedSynthroid 50 mcg (0.05 mg) oral tablet 50 mcg 1 tabs, Oral, Daily, # 30 tabs, 0 Refill(s) Start Date: 01/09/17 Status: OrderedVentolin HFA 90 mcg/inh inhalation aerosol See Instructions, INHALE ONE PUFF BY MOUTH FOUR TIMES A DAY NEEDED FOR WHEEZING, # 1 Each, 5 Refill(s), Pharmacy: [facility] #[id number], INHALE ONE PUFF BY MOUTH FOUR TIMES A DAY NEEDED FOR WHEEZING Start Date: 12/14/16 Status: Ordered Immunizations Given and Recorded Vaccine Date Status Refusal Reason influenza virus vaccine, inactivated1 06/22/16 Given influenza virus vaccine, inactivated 06/25/15 Recorded pneumococcal 13-valent conjugate vaccine 03/22/15 Given pneumococcal 13-valent conjugate vaccine2 08/14/13 Given pneumococcal 23-polyvalent vaccine 08/14/13 Given zoster vaccine live 08/07/13 Given influenza virus vaccine, live 06/25/13 Given influenza virus vaccine, live 07/15/12 Given tetanus-diphth toxoids (Td) adult/adol 03/27/08 Recorded 1Result Comment: [id number] Comment: [06/10/2015 Uncharted] Uploaded in Error - CC Procedures Procedure Date Related Diagnosis Body Site Appendectomy Cholecystectomy Hysterectomy Social History Social History Type Response Smoking Status Former smoker; Type: Cigarettes; Tobacco use per day: 1 Pack; Number of years: 30; Total pack years: 30; 1 entered on: 10/16/14 1Quit in 1990 Assessment and Plan Extracted from: Title: Office Visit Note Author: Feli Santiago DO Date: 07/16/17 COPD with acute exacerbation oral prednisone taper, dc doxycylcine and start augmentin, rtc if not improving in 2-3 days or with worsening symptoms. Ordered: Office Visit Level 3 Est 57432
--- OUTSIDE RECORDS SUMMARY | 2018-04-19 06:29 | External Medical Summary | Referral Summary ---
:1940 Author [facility] Address [address] [place] [address] [place] [address] Care Team Providers Name Role Phone Feli Santiago Primary Care Physician Encounter VC Date(s): 02/01/17 - 02/01/17 [facility] [address] [place] [phone] [place] Discharge Diagnosis: Chronic pain Discharge Diagnosis: Benign hypertension Discharge Diagnosis: Anxiety Discharge Diagnosis: COPD (chronic obstructive pulmonary disease) Discharge Disposition: 01-Home or Self Care Attending Physician: Feli Santiago DO Admitting Physician: Feli Santiago DO Vital Signs Most recent to oldest [Reference Range]: 1 Temperature Tympanic [36.6-38.1 degC] 36.9 degC (02/01/17 1:14 PM) Peripheral Pulse Rate [60-100 bpm] 70 bpm (02/01/17 1:14 PM) Respiratory Rate [14-20 br/min] 15 br/min (02/01/17 1:14 PM) Blood Pressure [90-140/60-90 mmHg] 118/60 mmHg (02/01/17 1:14 PM) SpO2 94 % (02/01/17 1:14 PM) Problem List Condition Effective Dates Status [...] DX: J44.9, # 100 Each, 4 Refill(s), Pharmacy:[facility] #[id number], 3 mL Inhalation q2hr,PRN:as needed for wheezing,Instr:DX: J44.9 Start Date: 01/16/17 Status: Orderedallopurinol 100 mg oral tablet 100 mg 1 tabs, Oral, Daily, # 90 tabs, 0 Refill(s), Pharmacy: [facility] # [id number], 1 tabs Oral Daily Start Date: 11/17/16 Status: OrderedamLODIPine 5 mg oral tablet 5 mg 1 tabs, Oral, Daily, for blood pressures above 140, # 30 tabs, 11 Refill(s) , Pharmacy: [facility] #[id number], 1 tabs Oral Daily,Instr:for blood pressures above 140 Start Date: 08/14/16 Status: Orderedaspirin 81 mg, Oral, Daily, 0 Refill(s) Start Date: 06/30/14 Status: OrderedAtivan 0.5 mg oral tablet 0.5 mg 1 tabs, Oral, Bedtime (once a day), # 30 tabs, 0 Refill(s) Start Date: 02/01/17 Status: OrderedBreo Ellipta 100 mcg-25 mcg/inh inhalation powder 1 puffs, Inhalation, Daily, SAMPLE GIVEN, # 30 Each, 0 Refill(s) Start Date: 05/15/16 Status: Orderedcitalopram 10 mg oral tablet 10 mg 1 tabs, Oral, Daily, # 30 tabs, 11 Refill(s), Pharmacy: [facility] # [id number], 1 tabs Oral Daily Start Date: 08/14/16 Status: Ordereddiltiazem 180 mg/24 hours oral capsule, extended release 180 mg 1 caps, Oral, Daily, # 30 caps, 0 Refill(s), Pharmacy: [facility] # [id number], 1 caps Oral Daily Start Date: 01/30/17 Status: Orderedgabapentin 100 mg oral capsule 100 mg 1 caps, Oral, BID, as needed for pain, 0 Refill(s) Start Date: 06/19/16 Status: Orderedgabapentin 600 mg oral tablet 600 mg 1 tabs, Oral, Bedtime (once a day), # 90 tabs, 0 Refill(s), Pharmacy: [facility] #[id number], 1 tabs Oral Bedtime (once a day) Start Date: 01/09/17 Status: Orderedgabapentin 600 mg oral tablet See Instructions, TAKE ONE TABLET BY MOUTH AT BEDTIME, # 90 tabs, 0 Refill(s), Pharmacy: [facility] #[id number], TAKE ONE TABLET BY MOUTH AT BEDTIME Start Date: 01/09/17 Status: Orderedipratropium-albuterol 0.5 mg-2.5 mg/3 mLinhalation solution See Instructions, INHALE ONE VIAL VIA NEBULIZER BY MOUTH FOUR TIMES A DAY DX: J44.9(MEDICAR B LIMITS2 DOSES PER DAY), # 180 mL, 2 Refill(s), Pharmacy: [facility] #[id number] Start Date: 01/02/17 Status: OrderedLasix 20 mg oral tablet 20 mg 1 tabs, Oral, Daily, # 90 tabs, 0 Refill(s), Pharmacy: [facility] # [id number], 1 tabs Oral Daily Start Date: 01/12/17 Status: Orderedmeloxicam 15 mg oral tablet 15 [...] # 90 tabs, 0 Refill(s) Start Date: 02/01/17 Status: Orderedpotassium chloride 10 mEq oral tablet, extended release See Instructions, TAKE 1 TABLET BY MOUTH EVERY DAY, # 30 unknown unit, 2 Refill( s), eRx: [facility] #[id number], TAKE 1 TABLET BY MOUTH EVERY DAY Start Date: 01/12/15 Status: OrderedpredniSONE 20 mg oral tablet See Instructions, 40 m daily x 2 weeks 20 mg daily x 2 weeks 10mg daily x 2 weeks, # 49 tabs, 0 Refill(s), Pharmacy: [facility] #[id number], 40 m daily x 2 weeks; 20 mg daily x 2 weeks; 10mg daily x 2 weeks Start Date: 01/09/17 Status: OrderedPriLOSEC 20 mg oral delayed release capsule 20 mg 1 caps, Oral, BID, # 180 caps, 0 Refill(s), Pharmacy: [facility] # [id number], 1 caps Oral BID Start Date: 11/14/16 Status: OrderedPromethazine DM 6.25 mg-15 mg/5 mL oral syrup 5 mL, Oral, q6hr, as needed for cough, # 120 mL, 0 Refill(s), Pharmacy: [facility] #[id number] Start Date: 09/14/16 Status: OrderedSynthroid 50 mcg (0.05 mg) oral tablet 50 mcg 1 tabs, Oral, Daily, # 30 tabs, 0 Refill(s) Start Date: 01/09/17 Status: OrderedVentolin HFA 90 mcg/inh inhalation aerosol See Instructions, INHALE ONE PUFF BY MOUTH FOUR TIMES A DAY NEEDED FOR WHEEZING, # 1 Each, 5 Refill(s), Pharmacy: [facility] #[id number], INHALE ONE PUFF BY MOUTH FOUR TIMES A DAY NEEDED FOR WHEEZING Start Date: 12/14/16 Status: Ordered Results No data available for [...] zoster vaccine live 08/07/13 Given 1Result Comment: [id number] Comment: [06/10/2015 Uncharted] Uploaded in Error - CC Procedures Procedure Date Related Diagnosis Body Site Appendectomy Cholecystectomy Hysterectomy Social History Social History Type Response Smoking Status Former smoker; Type: Cigarettes; Tobacco use per day: 1 Pack; Number of years: 30; Total pack years: 301 1Quit in 1990 Assessment and Plan Extracted from: Title: Office Visit Note Author: Feli Santiago DO Date: 02/01/17 Assessment/Plan Anxiety Continue Ativan, return to clinic in 3 months. Ordered: Office Visit Level 4 Est 18071 Benign hypertension Continue current regimen. Ordered: Office Visit Level 4 Est 01314 Chronic pain Continue current regimen, return to clinic in 3 months. Ordered: Office Visit Level 4 Est 65348 COPD (chronic obstructive pulmonary disease) Continue current regimen, can take nebulizers only as needed, continue steroid taper, return to clinic in about 5 weeks when she'll of been off of the steroid for a week or 2 to see how she does off. Ordered: Office Visit Level 4 Est 53716
--- OUTSIDE RECORDS SUMMARY | 2018-04-19 06:29 | External Medical Summary | Referral Summary ---
:1939 Author Organization [facility] Address [address] [place] [address] [place] [address] Care Team Providers Name Role Phone Feli Santiago Primary Care Physician Encounter [facility] [id number] Date(s): 01/12/17 - 01/12/17 [facility] [address] [place] [phone] [place] Discharge Diagnosis: Acute and chronic respiratory failure with hypoxia Discharge Diagnosis: COPD with acute exacerbation Discharge Diagnosis: Acute CHF Discharge Disposition: -Home or Self Care Attending Physician: Feli Santiago DO Admitting Physician: Feli Santiago DO Vital Signs Most recent to oldest [Reference Range]: 1 Temperature Tympanic [36.6-38.1 degC] 36.6 degC (01/12/17 2:35 PM) Peripheral Pulse Rate [60-100 bpm] 82 bpm (01/12/17 2:35 PM) Blood Pressure [90-140/60-90 mmHg] 118/54 mmHg (01/12/17 2:35 PM) SpO2 84 % (01/12/17 2:35 PM) Problem List Condition Effective Dates Status [...] mL, Inhalation, q2hr, as needed for wheezing, # 100 Each, 4 Refill(s), Pharmacy: [facility] #[id number], 3 mL Inhalation q2hr,PRN:as needed for wheezing Start Date: 01/12/17 Status: Orderedallopurinol 100 mg oral tablet 100 mg 1 tabs, Oral, Daily, # 90 tabs, 0 Refill(s), Pharmacy: [facility] # [id number], 1 tabs Oral Daily Start Date: 11/17/16 Status: OrderedamLODIPine 5 mg oral tablet 5 mg 1 tabs, Oral, Daily, for blood pressures above 140, # 30 tabs, 11 Refill(s) , Pharmacy: [facility] #[id number], 1 tabs Oral Daily,Instr:for blood pressures above 140 Start Date: 08/14/16 Status: Orderedaspirin 81 mg, Oral, Daily, 0 Refill(s) Start Date: 06/30/14 Status: OrderedAtivan 0.5 mg oral tablet 0.5 mg 1 tabs, Oral, Bedtime (once a day), 0 Refill(s) Start Date: 01/09/17 Status: OrderedBreo Ellipta 100 mcg-25 mcg/inh inhalation powder 1 puffs, Inhalation, Daily, SAMPLE GIVEN, # 30 Each, 0 Refill(s) Start Date: 05/15/16 Status: Orderedcitalopram 10 mg oral tablet 10 mg 1 tabs, Oral, Daily, # 30 tabs, 11 Refill(s), Pharmacy: [facility] # [id number], 1 tabs Oral Daily Start Date: 08/14/16 Status: Ordereddiltiazem 180 mg/24 hours oral capsule, extended release 180 mg 1 caps, Oral, Daily, # 30 caps, 0 Refill(s) Start Date: 01/09/17 Status: Orderedgabapentin 100 mg oral capsule 100 mg 1 caps, Oral, BID, as needed for pain, 0 Refill(s) Start Date: 06/19/16 Status: Orderedgabapentin 600 mg oral tablet 600 mg 1 tabs, Oral, Bedtime (once a day), # 90 tabs, 0 Refill(s), Pharmacy: [facility] #[id number], 1 tabs Oral Bedtime (once a day) Start Date: 01/09/17 Status: Orderedgabapentin 600 mg oral tablet See Instructions, TAKE ONE TABLET BY MOUTH AT BEDTIME, # 90 tabs, 0 Refill(s), Pharmacy: [facility] #[id number], TAKE ONE TABLET BY MOUTH AT BEDTIME Start Date: 01/09/17 Status: Orderedipratropium-albuterol 0.5 mg-2.5 mg/3 mLinhalation solution See Instructions, INHALE ONE VIAL VIA NEBULIZER BY MOUTH FOUR TIMES A DAY DX: J44.9(MEDICAR B LIMITS2 DOSES PER DAY), # 180 mL, 2 Refill(s), Pharmacy: [facility] #[id number] Start Date: 01/02/17 Status: OrderedLasix 20 mg oral tablet 20 mg 1 tabs, Oral, Daily, # 90 tabs, 0 Refill(s), Pharmacy: [facility] # [id number], 1 tabs Oral Daily Start Date: 01/12/17 [...] 30 unknown unit, 2 Refill( s), eRx: [facility] #[id number], TAKE 1 TABLET BY MOUTH EVERY DAY Start Date: 01/12/15 Status: OrderedpredniSONE 20 mg oral tablet See Instructions, 40 m daily x 2 weeks 20 mg daily x 2 weeks 10mg daily x 2 weeks, # 49 tabs, 0 Refill(s), Pharmacy: [facility] #[id number], 40 m daily x 2 weeks; 20 mg daily x 2 weeks; 10mg daily x 2 weeks Start Date: 01/09/17 Status: OrderedPriLOSEC 20 mg oral delayed release capsule 20 mg 1 caps, Oral, BID, # 180 caps, 0 Refill(s), Pharmacy: [facility] # [id number], 1 caps Oral BID Start Date: 11/14/16 Status: OrderedPromethazine DM 6.25 mg-15 mg/5 mL oral syrup 5 mL, Oral, q6hr, as needed for cough, # 120 mL, 0 Refill(s), Pharmacy: [facility] #[id number] Start Date: 09/14/16 Status: OrderedSynthroid 50 mcg (0.05 mg) oral tablet 50 mcg 1 tabs, Oral, Daily, # 30 tabs, 0 Refill(s) Start Date: 01/09/17 Status: OrderedVentolin HFA 90 mcg/inh inhalation aerosol See Instructions, INHALE ONE PUFF BY MOUTH FOUR TIMES A DAY NEEDED FOR WHEEZING, # 1 Each, 5 Refill(s), Pharmacy: [facility] #[id number], INHALE ONE PUFF BY MOUTH FOUR TIMES [...] zoster vaccine live 08/07/13 Given 1Result Comment: [id number] Comment: [06/10/2015 Uncharted] Uploaded in Error - CC Procedures Procedure Date Related Diagnosis Body Site Appendectomy Cholecystectomy Hysterectomy Social History Social History Type Response Smoking Status Former smoker; Type: Cigarettes; Tobacco use per day: 1 Pack; Number of years: 30; Total pack years: 301 1Quit in 1990 Assessment and Plan Extracted from: Title: Office Visit Note Author: Feli Santiago DO Date: 01/12/17 Assessment/Plan Acute and chronic respiratory failure with hypoxia Continue 4 Lof oxygen at home. Ordered: Office Visit Level 4 Est 28489 Acute CHF We will decrease patient's Lasix to 20 mg as she has severe cramping despitepotassium supplementation on the 40 mg Lasix and so she won't take it anymore as needed like she supposed to. Ordered: Office Visit Level 4 Est 35236 COPD with acute exacerbation Another Solu-Medrol injection provided today. Patient can haveher steroids as I instructed now per insurance. I have prescribed the patient albuterol to take every 2 hours as neededby her n ebulizerin between doing her DuoNeb treatments. She is to do her DuoNeb treatments now every 4 hours. Patient is to return to clinic next Sunday for further evaluation and to go to the ER over the weekend with any significant respiratory distress. Ordered: Office Visit Level 4 Est 65196
--- OUTSIDE RECORDS SUMMARY | 2018-04-19 06:29 | External Medical Summary | Referral Summary ---
:1940 Author Organization [facility] Address [address] [place] [address] [place] [address] Care Team Providers Name Role Phone Feli Santiago Primary Care Physician Encounter [facility] [id number] Date(s): 01/09/17 - 01/09/17 [facility] [place] [address] [place] Discharge Diagnosis: Hospital discharge follow-up Discharge Diagnosis: COPD with acute exacerbation Discharge Diagnosis: Shingles Discharge Diagnosis: Acute on chronic respiratory failure Discharge Disposition: -Home or Self Care Attending Physician: Feli Santiago DO Admitting Physician: Feli Santiago DO Vital Signs Most recent to oldest [Reference Range]: 1 Temperature Tympanic [36.6-38.1 degC] 36.9 degC (01/09/17 7:57 AM) Peripheral Pulse Rate [60-100 bpm] 77 bpm (01/09/17 7:57 AM) Respiratory Rate [14-20 br/min] 14 br/min (01/09/17 7:57 AM) Blood Pressure [90-140/60-90 mmHg] 109/70 mmHg (01/09/17 7:57 AM) SpO2 90 % (01/09/17 7:57 AM) Problem List Condition Effective Dates Status [...] Daily, # 90 tabs, 0 Refill(s), Pharmacy: [facility] # [id number], 1 tabs Oral Daily Start Date: 11/17/16 Status: OrderedamLODIPine 5 mg oral tablet 5 mg 1 tabs, Oral, Daily, for blood pressures above 140, # 30 tabs, 11 Refill(s) , Pharmacy: [facility] #[id number], 1 tabs Oral Daily,Instr:for blood pressures above [...] Daily, # 30 tabs, 11 Refill(s), Pharmacy: [facility] # [id number], 1 tabs Oral Daily Start Date: 08/14/16 [...] day), # 90 tabs, 0 Refill(s), Pharmacy: [facility] #[id number], 1 tabs Oral Bedtime (once a day) Start Date: 01/09/17 Status: Orderedgabapentin 600 mg oral tablet See Instructions, TAKE ONE TABLET BY MOUTH AT BEDTIME, # 90 tabs, 0 Refill(s), Pharmacy: [facility] #[id number], TAKE ONE TABLET BY MOUTH AT BEDTIME Start Date: 01/09/17 Status: Orderedipratropium-albuterol 0.5 mg-2.5 mg/3 mLinhalation solution See Instructions, INHALE ONE VIAL VIA NEBULIZER BY MOUTH FOUR TIMES A DAY DX: J44.9(MEDICAR B LIMITS2 DOSES PER DAY), # 180 mL, 2 Refill(s), Pharmacy: [facility] #[id number] Start Date: 01/02/17 Status: OrderedLasix 40 mg oral tablet See Instructions, TAKE 1 TABLET BY MOUTH EVERY DAY, # 30 tabs, 2 Refill(s), eRx : [facility] #[id number], TAKE 1 TABLET BY MOUTH EVERY DAY [...] 30 unknown unit, 2 Refill( s), eRx: [facility] #[id number], TAKE 1 TABLET BY MOUTH EVERY DAY Start Date: 01/12/15 Status: OrderedpredniSONE 20 mg oral tablet See Instructions, 40 m daily x 2 weeks 20 mg daily x 2 weeks 10mg daily x 2 weeks, # 49 tabs, 0 Refill(s), Pharmacy: [facility] #[id number], 40 m daily x 2 weeks; 20 mg daily x 2 weeks; 10mg daily x 2 weeks Start Date: 01/09/17 Status: OrderedPriLOSEC 20 mg oral delayed release capsule 20 mg 1 caps, Oral, BID, # 180 caps, 0 Refill(s), Pharmacy: [facility] # [id number], 1 caps Oral BID Start Date: 11/14/16 Status: OrderedPromethazine DM 6.25 mg-15 mg/5 mL oral syrup 5 mL, Oral, q6hr, as needed for cough, # 120 mL, 0 Refill(s), Pharmacy: [facility] #[id number] Start Date: 09/14/16 Status: OrderedSynthroid 50 mcg (0.05 mg) oral tablet 50 mcg 1 tabs, Oral, Daily, # 30 tabs, 0 Refill(s) Start Date: 01/09/17 Status: OrderedVentolin HFA 90 mcg/inh inhalation aerosol See Instructions, INHALE ONE PUFF BY MOUTH FOUR TIMES A DAY NEEDED FOR WHEEZING, # 1 Each, 5 Refill(s), Pharmacy: [facility] #[id number], INHALE ONE PUFF BY MOUTH FOUR TIMES [...] zoster vaccine live 08/07/13 Given 1Result Comment: [id number] Comment: [06/10/2015 Uncharted] Uploaded in Error - CC Procedures Procedure Date Related Diagnosis Body Site Appendectomy Cholecystectomy Hysterectomy Social History Social History Type Response Smoking Status Former smoker; Type: Cigarettes; Tobacco use per day: 1 Pack; Number of years: 30; Total pack years: 301 1Quit in 1990 Assessment and Plan Extracted from: Title: Office Visit Note Author: Feli Santiago DO Date: 01/09/17 Assessment/Plan Acute on chronic respiratory failure This is improving, continue home O2, return to clinic in 2-3 weeks. Ordered: Office Visit Level 4 Est 90960 COPD with acute exacerbation Chest x-ray shows the pneumonia has resolved but COPD exacerbation continues to a certain extentalong with deconditioning. We'll go ahead and restart patient's steroids and have her on a slowsteroid taper over the next 6 weeks. Ordered: Office Visit Level 4 Est 43959 Hospital discharge follow-up Improving, continue home health. Ordered: Office Visit Level 4 Est 93941 Pneumonia This is resolved on chest x-ray today. Ordered: Office Visit Level 4 Est 61500 XR Chest 2 Views Shingles Continue to monitor, steroid should help, patient should make home health nurse aware of this for continued monitoring, given signs and symptoms of infection to alert us to. Follow-up in 2-3 weeks. Ordered: Office Visit Level 4 Est 94740
--- OUTSIDE RECORDS SUMMARY | 2018-04-19 06:29 | External Medical Summary | Referral Summary ---
:1939 Author Organization [facility] [place] [address] Care Team Providers Name Role Phone Feli Santiago Primary Care Physician Encounter [facility] Date(s): 05/09/17 - 05/09/17 [facility] [place] [phone] [place] Discharge Diagnosis: Corticosteroid-induced gastritis Discharge Disposition: 01-Home or Self Care Attending Physician: Feli Santiago DO Admitting Physician: Feli Santiago DO Vital Signs Most recent to oldest [Reference Range]: 1 Temperature Tympanic [36.6-38.1 degC] 36.7 degC (05/09/17 10:56 AM) Peripheral Pulse Rate [60-100 bpm] 90 bpm (05/09/17 10:56 AM) Blood Pressure [90-140/60-90 mmHg] 144/82 mmHg *[place]* (05/09/17 10:56 AM) SpO2 95 % (05/09/17 10:56 AM) Problem List Condition Effective Dates Status [...] DX: J44.9, # 100 Each, 4 Refill(s), Pharmacy:[facility] #[id number], 3 mL Inhalation q2hr,PRN:as needed for wheezing,Instr:DX: J44.9 Start Date: 01/16/17 Status: Orderedalbuterol 2.5 mg/3 mL (0.083%) inhalation solution 2.5 mg 3 mL, Inhalation, Daily, as needed for wheezing, Dx: J44.9, # 30 vials, 3 Refill(s), Pharmacy: [facility] #[id number], 3 mL Inhalation Daily,PRN:as needed for wheezing,Instr:Dx: J44.9 Start Date: 04/16/17 Status: Orderedallopurinol 100 mg oral tablet See Instructions, TAKE ONE TABLET BY MOUTH DAILY, # 90 tabs, 1 Refill(s), eRx: [facility] #[id number] Start Date: 02/12/17 Status: OrderedamLODIPine 5 mg oral tablet 5 mg 1 tabs, Oral, Daily, for blood pressures above 140, # 30 tabs, 11 Refill(s) , Pharmacy: [facility] #[id number], 1 tabs Oral Daily,Instr:for blood pressures above 140 Start Date: 08/14/16 Status: Orderedarformoterol 15 mcg/2 mL inhalation solution 1 Each, NEB, BID, Dx: J44.9, # 120 vials, 3 Refill(s), Pharmacy: [facility] #[id number] Start Date: 04/16/17 Status: Orderedaspirin 81 mg, [...] J44.9, # 120 vials, 3 Refill(s), Pharmacy: [facility] #[id number], 2 mLNEB BID,Instr:Dx: J44.9 Start Date: 04/16/17 Status: OrderedCartia XT 180 mg/24 hours oral capsule, extended release See Instructions, TAKE ONE CAPSULE BY MOUTH DAILY, # 30 caps, 3 Refill(s), eRx: [facility] #[id number] Start Date: 02/27/17 Status: Orderedcitalopram 10 mg oral tablet 10 mg 1 tabs, Oral, Daily, # 30 tabs, 11 Refill(s), Pharmacy: [facility] # [id number], 1 tabs Oral Daily Start Date: 08/14/16 Status: Orderedfurosemide 20 mg oral tablet See Instructions, TAKE ONE TABLET BY MOUTH DAILY, # 90 tabs, eRx: [facility] #[id number] Start Date: 04/09/17 Status: Orderedgabapentin 100 mg oral capsule 100 mg 1 caps, Oral, TID, as needed for pain, # 270 caps, 2 Refill(s), Pharmacy : [facility] #[id number], 1 caps Oral TID,PRN:as needed for pain Start Date: 04/10/17 Status: Orderedgabapentin 600 mg oral tablet See Instructions, TAKE ONE TABLET BY MOUTH AT BEDTIME WITH 100MG TAB, # 90 tabs , 2 Refill(s), Pharmacy: [facility] #[id number], TAKE ONE TABLET BY MOUTH AT BEDTIME WITH 100MG TAB Start Date: 04/10/17 Status: Orderedgabapentin 600 mg oral tablet 600 mg 1 tabs, Oral, Bedtime (once a day), # 90 tabs, 0 Refill(s), Pharmacy: [facility] #[id number], 1 tabs Oral Bedtime (once a day) Start Date: 01/09/17 Status: Orderedipratropium 500 mcg/2.5 mL inhalation solution 500 mcg 2.5 mL, NEB, QID, Dx: J44.9, # 300 vials, 3 Refill(s), Pharmacy: [facility] #[id number], 2.5 mL NEB QID,Instr:Dx: J44.9 Start Date: 04/16/17 Status: Orderedipratropium-albuterol 0.5 mg-2.5 mg/3 mLinhalation solution See Instructions, INHALE ONE VIAL VIA NEBULIZER BY MOUTH FOUR TIMES A DAY DX: J44.9(MEDICAR B LIMITS2 DOSES PER DAY), # 180 mL, 2 Refill(s), Pharmacy: [facility] #[id number] Start Date: 01/02/17 Status: Orderedmeloxicam 15 mg [...] # 90 tabs, 0 Refill(s) Start Date: 04/10/17 Status: Orderedomeprazole 20 mg oral delayed release capsule See Instructions, TAKE ONE CAPSULE BY MOUTH TWICE A DAY, # 180 caps, eRx: [facility] #[id number] Start Date: 04/24/17 Status: Orderedpotassium chloride 10 mEq oral tablet, extended release See Instructions, TAKE 1 TABLET BY MOUTH EVERY DAY, # 30 unknown unit, 2 Refill( s), eRx: [facility] #[id number], TAKE 1 TABLET BY MOUTH EVERY DAY Start Date: 01/12/15 Status: OrderedpredniSONE 20 mg oral tablet See Instructions, 80mg x5 days 60mg x5 days 40mg x5 days 20mg x5 days 10mg x5 days, # 58 tabs, 0Refill(s), Pharmacy: [facility] #[id number], 80mg x5 days ; 60mg x5 days; 40mg x5 days; 20mg x5 days; 10mg x5 days Start Date: 04/23/17 Status: OrderedPromethazine DM 6.25 mg-15 mg/5 mL oral syrup 5 mL, Oral, q6hr, as needed for cough, # 120 mL, 0 Refill(s), Pharmacy: [facility] #[id number] Start Date: 09/14/16 Status: OrderedraNITIdine 150 mg oral capsule 150 mg 1 caps, Oral, BID, # 28 caps, 0 Refill(s), Pharmacy: [facility] # [id number], 1 caps Oral BID,x14 days Start Date: 05/09/17 Stop Date: 05/23/17 Status: Orderedsucralfate 1 g oral tablet 1 g 1 tabs, Oral, QID, # 28 tabs, 0 Refill(s), Pharmacy: [facility] # [id number], 1 tabs Oral QID,x7 days Start Date: 05/09/17 Stop Date: 05/16/17 Status: OrderedSynthroid 50 mcg (0.05 mg) oral tablet 50 mcg 1 tabs, Oral, Daily, # 30 tabs, 0 Refill(s) Start Date: 01/09/17 Status: OrderedVentolin HFA 90 mcg/inh inhalation aerosol See Instructions, INHALE ONE PUFF BY MOUTH FOUR TIMES A DAY NEEDED FOR WHEEZING, # 1 Each, 5 Refill(s), Pharmacy: [facility] #[id number], INHALE ONE PUFF BY MOUTH FOUR TIMES [...] toxoids (Td) adult/adol 03/27/08 Recorded 1Result Comment: [id number] Comment: [06/10/2015 Uncharted] Uploaded in Error - CC Procedures Procedure Date Related Diagnosis Body Site Appendectomy Cholecystectomy Hysterectomy Social History Social History Type Response Smoking Status Former smoker; Type: Cigarettes; Tobacco use per day: 1 Pack; Number of years: 30; Total pack years: 30; 1 1Quit in 1990 Assessment and Plan Extracted from: Title: Office Visit Note Author: Feli Santiago DO Date: 05/09/17 Corticosteroid-induced gastritis Ranitidine for 2 weeks and Carafate for 1 week, if symptoms are not improving return to clinic, patient advised to present to clinic or emergency department with any darkening stools, vomiting blood, etc. Ordered: Office Visit Level 3 Est 07859
--- OUTSIDE RECORDS SUMMARY | 2018-04-19 06:29 | External Medical Summary | Referral Summary ---
:1939 Author Organization [facility] Address [address] [place] [address] Care Team Providers Name Role Phone Feli Santiago Primary Care Physician Encounter [facility] Date(s): 05/23/17 - 05/23/17 [facility], [facility] [address] [place] [address] [place] Discharge Diagnosis: Chronic airway obstruction Discharge Disposition: 01-Home or Self Care Attending Physician: Xander Ford MD Admitting Physician: Xander Ford MD Referring Physician: Xander Ford MD Problem List Condition Effective Dates Status Health [...] DX: J44.9, # 100 Each, 4 Refill(s), Pharmacy:[facility] #[id number], 3 mL Inhalation q2hr,PRN:as needed for wheezing,Instr:DX: J44.9 Start Date: 01/16/17 Status: Orderedalbuterol 2.5 mg/3 mL (0.083%) inhalation solution 2.5 mg 3 mL, Inhalation, Daily, as needed for wheezing, Dx: J44.9, # 30 vials, 3 Refill(s), Pharmacy: [facility] #[id number], 3 mL Inhalation Daily,PRN:as needed for wheezing,Instr:Dx: J44.9 Start Date: 04/16/17 Status: Orderedallopurinol 100 mg oral tablet See Instructions, TAKE ONE TABLET BY MOUTH DAILY, # 90 tabs, 1 Refill(s), eRx: [facility] #[id number] Start Date: 02/12/17 Status: OrderedamLODIPine 5 mg oral tablet 5 mg 1 tabs, Oral, Daily, for blood pressures above 140, # 30 tabs, 11 Refill(s) , Pharmacy: [facility] #[id number], 1 tabs Oral Daily,Instr:for blood pressures above 140 Start Date: 08/14/16 Status: Orderedarformoterol 15 mcg/2 mL inhalation solution 1 Each, NEB, BID, Dx: J44.9, # 120 vials, 3 Refill(s), Pharmacy: [facility] #[id number] Start Date: 04/16/17 Status: Orderedaspirin 81 mg, [...] J44.9, # 120 vials, 3 Refill(s), Pharmacy: [facility] #[id number], 2 mLNEB BID,Instr:Dx: J44.9 Start Date: 04/16/17 Status: OrderedCartia XT 180 mg/24 hours oral capsule, extended release See Instructions, TAKE ONE CAPSULE BY MOUTH DAILY, # 30 caps, 3 Refill(s), eRx: [facility] #[id number] Start Date: 02/27/17 Status: Orderedcitalopram 10 mg oral tablet 10 mg 1 tabs, Oral, Daily, # 30 tabs, 11 Refill(s), Pharmacy: [facility] # [id number], 1 tabs Oral Daily Start Date: 08/14/16 Status: Orderedfurosemide 20 mg oral tablet See Instructions, TAKE ONE TABLET BY MOUTH DAILY, # 90 tabs, eRx: [facility] #[id number] Start Date: 04/09/17 Status: Orderedgabapentin 100 mg oral capsule 100 mg 1 caps, Oral, TID, as needed for pain, # 270 caps, 2 Refill(s), Pharmacy : [facility] #[id number], 1 caps Oral TID,PRN:as needed for pain Start Date: 04/10/17 Status: Orderedgabapentin 600 mg oral tablet See Instructions, TAKE ONE TABLET BY MOUTH AT BEDTIME WITH 100MG TAB, # 90 tabs , 2 Refill(s), Pharmacy: [facility] #[id number], TAKE ONE TABLET BY MOUTH AT BEDTIME WITH 100MG TAB Start Date: 04/10/17 Status: Orderedgabapentin 600 mg oral tablet 600 mg 1 tabs, Oral, Bedtime (once a day), # 90 tabs, 0 Refill(s), Pharmacy: [facility] #[id number], 1 tabs Oral Bedtime (once a day) Start Date: 01/09/17 Status: Orderedipratropium 500 mcg/2.5 mL inhalation solution 500 mcg 2.5 mL, NEB, QID, Dx: J44.9, # 300 vials, 3 Refill(s), Pharmacy: [facility] #[id number], 2.5 mL NEB QID,Instr:Dx: J44.9 Start Date: 04/16/17 Status: Orderedipratropium-albuterol 0.5 mg-2.5 mg/3 mLinhalation solution See Instructions, INHALE ONE VIAL VIA NEBULIZER BY MOUTH FOUR TIMES A DAY DX: J44.9(MEDICAR B LIMITS2 DOSES PER DAY), # 180 mL, 2 Refill(s), Pharmacy: [facility] #[id number] Start Date: 01/02/17 Status: Orderedmeloxicam 15 mg [...] TWICE A DAY, # 180 caps, eRx: [facility] #[id number] Start Date: 04/24/17 Status: Orderedpotassium chloride 10 mEq oral tablet, extended release See Instructions, TAKE 1 TABLET BY MOUTH EVERY DAY, # 30 unknown unit, 2 Refill( s), eRx: [facility] #[id number], TAKE 1 TABLET BY MOUTH EVERY DAY Start Date: 01/12/15 Status: OrderedPromethazine DM 6.25 mg-15 mg/5 mL oral syrup 5 mL, Oral, q6hr, as needed for cough, # 120 mL, 0 Refill(s), Pharmacy: [facility] #[id number] Start Date: 09/14/16 Status: OrderedraNITIdine 150 mg oral capsule See Instructions, TAKE ONE CAPSULE BY MOUTH TWICE A DAY FOR 14 DAYS, # 28 caps, eRx: [facility] #[id number] Start Date: 05/21/17 Status: Orderedsucralfate 1 g oral tablet See Instructions, TAKE ONE TABLET BY MOUTH FOUR TIMES A DAY FOR 7 DAYS, # 28 tabs, eRx: [facility] #[id number], TAKE ONE TABLET BY MOUTH FOUR TIMES A DAY FOR 7 DAYS Start Date: 05/14/17 Status: OrderedSynthroid 50 mcg (0.05 mg) oral tablet 50 mcg 1 tabs, Oral, Daily, # 30 tabs, 0 Refill(s) Start Date: 01/09/17 Status: OrderedVentolin HFA 90 mcg/inh inhalation aerosol See Instructions, INHALE ONE PUFF BY MOUTH FOUR TIMES A DAY NEEDED FOR WHEEZING, # 1 Each, 5 Refill(s), Pharmacy: [facility] #[id number], INHALE ONE PUFF BY MOUTH FOUR TIMES [...] toxoids (Td) adult/adol 03/27/08 Recorded 1Result Comment: [id number] Comment: [06/10/2015 Uncharted] Uploaded in Error - CC Procedures Procedure Date Related Diagnosis Body Site Appendectomy Cholecystectomy Hysterectomy Social History Social History Type Response Smoking Status Former smoker; Type: Cigarettes; Tobacco use per day: 1 Pack; Number of years: 30; Total pack years: 30; 1 1Quit in 1990
--- OUTSIDE RECORDS SUMMARY | 2018-04-19 06:30 | External Medical Summary | Referral Summary ---
:1940 Author Organization [facility] [place] [address] Care Team Providers Name Role Phone Feli Santiago Primary Care Physician Encounter VC Date(s): 05/28/17 - 05/28/17 [facility] [address] [place] [phone] [place] Discharge Diagnosis: COPD with acute exacerbation Discharge Disposition: 01-Home or Self Care Attending Physician: Feli Santiago DO Admitting Physician: Feli Santiago DO Vital Signs Most recent to oldest [Reference Range]: 1 Peripheral Pulse Rate [60-100 bpm] 62 bpm (05/28/17 2:31 PM) Blood Pressure [90-140/60-90 mmHg] 120/76 mmHg (05/28/17 2:31 PM) SpO2 95 % (05/28/17 2:31 PM) Problem List Condition Effective Dates Status [...] DX: J44.9, # 100 Each, 4 Refill(s), Pharmacy:[facility] #[id number], 3 mL Inhalation q2hr,PRN:as needed for wheezing,Instr:DX: J44.9 Start Date: 01/16/17 Status: Orderedalbuterol 2.5 mg/3 mL (0.083%) inhalation solution 2.5 mg 3 mL, Inhalation, Daily, as needed for wheezing, Dx: J44.9, # 30 vials, 3 Refill(s), Pharmacy: [facility] #[id number], 3 mL Inhalation Daily,PRN:as needed for wheezing,Instr:Dx: J44.9 Start Date: 04/16/17 Status: Orderedallopurinol 100 mg oral tablet See Instructions, TAKE ONE TABLET BY MOUTH DAILY, # 90 tabs, 1 Refill(s), eRx: [facility] #[id number] Start Date: 02/12/17 Status: OrderedamLODIPine 5 mg oral tablet 5 mg 1 tabs, Oral, Daily, for blood pressures above 140, # 30 tabs, 11 Refill(s) , Pharmacy: [facility] #[id number], 1 tabs Oral Daily,Instr:for blood pressures above 140 Start Date: 08/14/16 Status: Orderedarformoterol 15 mcg/2 mL inhalation solution 1 Each, NEB, BID, Dx: J44.9, # 120 vials, 3 Refill(s), Pharmacy: [facility] #[id number] Start Date: 04/16/17 Status: Orderedaspirin 81 mg, Oral, Daily, 0 Refill(s) Start Date: 06/30/14 Status: OrderedAtivan 0.5 mg oral tablet 0.5 mg 1 tabs, Oral, Bedtime (once a day), # 30 tabs, 0 Refill(s) Start Date: 02/01/17 Status: OrderedAugmentin 875 mg-125 mg oral tablet 1 tabs, Oral, q12hr, X 10 days, # 20 tabs, 0 Refill(s), Pharmacy: [facility] #[id number] Start Date: 05/28/17 Stop Date: 06/07/17 Status: OrderedBreo Ellipta 100 mcg-25 mcg/inh inhalation powder 1 puffs, Inhalation, Daily, SAMPLE GIVEN, # 30 Each, 0 Refill(s) Start Date: 05/15/16 Status: Orderedbudesonide 0.5 mg/2 mL inhalation suspension 0.5 mg 2 mL, NEB, BID, Dx: J44.9, # 120 vials, 3 Refill(s), Pharmacy: [facility] #[id number], 2 mLNEB BID,Instr:Dx: J44.9 Start Date: 04/16/17 Status: OrderedCartia XT 180 mg/24 hours oral capsule, extended release See Instructions, TAKE ONE CAPSULE BY MOUTH DAILY, # 30 caps, 3 Refill(s), eRx: [facility] #[id number] Start Date: 02/27/17 Status: Orderedcitalopram 10 mg oral tablet 10 mg 1 tabs, Oral, Daily, # 30 tabs, 11 Refill(s), Pharmacy: [facility] # [id number], 1 tabs Oral Daily Start Date: 08/14/16 Status: Orderedfurosemide 20 mg oral tablet See Instructions, TAKE ONE TABLET BY MOUTH DAILY, # 90 tabs, eRx: [facility] #[id number] Start Date: 04/09/17 Status: Orderedgabapentin 100 mg oral capsule 100 mg 1 caps, Oral, TID, as needed for pain, # 270 caps, 2 Refill(s), Pharmacy : [facility] #[id number], 1 caps Oral TID,PRN:as needed for pain Start Date: 04/10/17 Status: Orderedgabapentin 600 mg oral tablet See Instructions, TAKE ONE TABLET BY MOUTH AT BEDTIME WITH 100MG TAB, # 90 tabs , 2 Refill(s), Pharmacy: [facility] #[id number], TAKE ONE TABLET BY MOUTH AT BEDTIME WITH 100MG TAB Start Date: 04/10/17 Status: Orderedgabapentin 600 mg oral tablet 600 mg 1 tabs, Oral, Bedtime (once a day), # 90 tabs, 0 Refill(s), Pharmacy: [facility] #[id number], 1 tabs Oral Bedtime (once a day) Start Date: 01/09/17 Status: Orderedipratropium 500 mcg/2.5 mL inhalation solution 500 mcg 2.5 mL, NEB, QID, Dx: J44.9, # 300 vials, 3 Refill(s), Pharmacy: [facility] #[id number], 2.5 mL NEB QID,Instr:Dx: J44.9 Start Date: 04/16/17 Status: Orderedipratropium-albuterol 0.5 mg-2.5 mg/3 mLinhalation solution See Instructions, INHALE ONE VIAL VIA NEBULIZER BY MOUTH FOUR TIMES A DAY DX: J44.9(MEDICAR B LIMITS2 DOSES PER DAY), # 180 mL, 2 Refill(s), Pharmacy: [facility] #[id number] Start Date: 01/02/17 Status: Orderedmeloxicam 15 mg [...] TWICE A DAY, # 180 caps, eRx: [facility] #[id number] Start Date: 04/24/17 Status: Orderedpotassium chloride 10 mEq oral tablet, extended release See Instructions, TAKE 1 TABLET BY MOUTH EVERY DAY, # 30 unknown unit, 2 Refill( s), eRx: [facility] #[id number], TAKE 1 TABLET BY MOUTH EVERY DAY Start Date: 01/12/15 Status: OrderedpredniSONE 10 mg oral tablet See Instructions, 60mg x4 days 50mg x4 days 40mg x4 days 30mg x4 days 20mg x4 days 10mg x4 days, # 84 tabs, 0 Refill(s), Pharmacy: [facility] # [id number], 60mg x4 days; 50mg x4 days; 40mg x4 days; 30mg x4 days; 20mg x4 days ; 10mg x4 days Start Date: 05/28/17 Status: OrderedPromethazine DM 6.25 mg-15 mg/5 mL oral syrup 5 mL, Oral, q6hr, as needed for cough, # 120 mL, 0 Refill(s), Pharmacy: [facility] #[id number] Start Date: 09/14/16 Status: OrderedraNITIdine 150 mg oral capsule See Instructions, TAKE ONE CAPSULE BY MOUTH TWICE A DAY FOR 14 DAYS, # 28 caps, eRx: [facility] #[id number] Start Date: 05/21/17 Status: Orderedsucralfate 1 g oral tablet See Instructions, TAKE ONE TABLET BY MOUTH FOUR TIMES A DAY FOR 7 DAYS, # 28 tabs, eRx: [facility] #[id number], TAKE ONE TABLET BY MOUTH FOUR TIMES [...] WHEEZING, # 1 Each, 5 Refill(s), Pharmacy: [facility] #[id number], INHALE ONE PUFF BY MOUTH FOUR TIMES [...] toxoids (Td) adult/adol 03/27/08 Recorded 1Result Comment: [id number] Comment: [06/10/2015 Uncharted] Uploaded in Error - CC Procedures Procedure Date Related Diagnosis Body Site Appendectomy Cholecystectomy Hysterectomy Social History Social History Type Response Smoking Status Former smoker; Type: Cigarettes; Tobacco use per day: 1 Pack; Number of years: 30; Total pack years: 30; 1 1Quit in 1990 Assessment and Plan Extracted from: Title: Office Visit Note Author: Feli Santiago DO Date: 05/28/17 COPD with acute exacerbation Augmentin and a long steroid taper. Patient is to take ranitidine and Carafate while on prednisone. If this does not improve we'll refer patient back to insurance sales representative. Ordered: Office Visit Level 4 Est 57388
--- OUTSIDE RECORDS SUMMARY | 2018-04-19 06:30 | External Medical Summary | Referral Summary ---
:1940 Author Organization [facility] [address] [place] [address] Care Team Providers Name Role Phone Feli Santiago Primary Care Physician Encounter VC Date(s): 07/10/17 - 07/10/17 [facility] [address] [place] [phone] [place] Discharge Diagnosis: Asthma exacerbation in COPD Discharge Diagnosis: Chronic pain Discharge Disposition: 01-Home or Self Care Attending Physician: Feli Santiago DO Admitting Physician: Feli Santiago DO Vital Signs Most recent to oldest [Reference Range]: 1 Temperature Tympanic [36.6-38.1 degC] 36.4 degC *LOW* (07/10/17 9:19 AM) Peripheral Pulse Rate [60-100 bpm] 56 bpm *LOW* (07/10/17 9:19 AM) Blood Pressure [90-140/60-90 mmHg] 166/72 mmHg *[place]* (07/10/17 9:19 AM) SpO2 95 % (07/10/17 9:19 AM) Problem List Condition Effective Dates Status [...] DX: J44.9, # 100 Each, 4 Refill(s), Pharmacy:[facility] #[id number], 3 mL Inhalation q2hr,PRN:as needed for wheezing,Instr:DX: J44.9 Start Date: 01/16/17 Status: Orderedalbuterol 2.5 mg/3 mL (0.083%) inhalation solution 2.5 mg 3 mL, Inhalation, Daily, as needed for wheezing, Dx: J44.9, # 30 vials, 3 Refill(s), Pharmacy: [facility] #[id number], 3 mL Inhalation Daily,PRN:as needed for wheezing,Instr:Dx: J44.9 Start Date: 04/16/17 Status: Orderedallopurinol 100 mg oral tablet See Instructions, TAKE ONE TABLET BY MOUTH DAILY, # 90 tabs, 1 Refill(s), eRx: [facility] #[id number] Start Date: 02/12/17 Status: OrderedamLODIPine 5 mg oral tablet 5 mg 1 tabs, Oral, Daily, for blood pressures above 140, # 30 tabs, 11 Refill(s) , Pharmacy: [facility] #[id number], 1 tabs Oral Daily,Instr:for blood pressures above 140 Start Date: 08/14/16 Status: Orderedarformoterol 15 mcg/2 mL inhalation solution 1 Each, NEB, BID, Dx: J44.9, # 120 vials, 3 Refill(s), Pharmacy: [facility] #[id number] Start Date: 04/16/17 Status: Orderedaspirin 81 mg, [...] J44.9, # 120 vials, 3 Refill(s), Pharmacy: [facility] #[id number], 2 mLNEB BID,Instr:Dx: J44.9 Start Date: 04/16/17 Status: OrderedCartia XT 180 mg/24 hours oral capsule, extended release See Instructions, TAKE ONE CAPSULE BY MOUTH DAILY, # 30 caps, 2 Refill(s), eRx: [facility] #[id number] Start Date: 06/26/17 Status: Orderedcitalopram 10 mg oral tablet 10 mg 1 tabs, Oral, Daily, # 30 tabs, 11 Refill(s), Pharmacy: [facility] # [id number], 1 tabs Oral Daily Start Date: 08/14/16 Status: Ordereddoxycycline hyclate 100 mg oral capsule 100 mg 1 caps, Oral, BID, X 10 days, # 20 caps, 0 Refill(s), Pharmacy: [facility] #[id number], 1 caps Oral BID,x10 days Start Date: 07/10/17 Stop Date: 07/20/17 Status: Orderedfurosemide 20 mg oral tablet See Instructions, TAKE ONE TABLET BY MOUTH DAILY, # 90 tabs, eRx: [facility] #[id number] Start Date: 04/09/17 Status: Orderedgabapentin 100 mg oral capsule 100 mg 1 caps, Oral, TID, as needed for pain, # 270 caps, 2 Refill(s), Pharmacy : [facility] #[id number], 1 caps Oral TID,PRN:as needed for pain Start Date: 04/10/17 Status: Orderedgabapentin 600 mg oral tablet See Instructions, TAKE ONE TABLET BY MOUTH AT BEDTIME WITH 100MG TAB, # 90 tabs , 2 Refill(s), Pharmacy: [facility] #[id number], TAKE ONE TABLET BY MOUTH AT BEDTIME WITH 100MG TAB Start Date: 04/10/17 Status: Orderedgabapentin 600 mg oral tablet 600 mg 1 tabs, Oral, Bedtime (once a day), # 90 tabs, 0 Refill(s), Pharmacy: [facility] #[id number], 1 tabs Oral Bedtime (once a day) Start Date: 01/09/17 Status: Orderedipratropium 500 mcg/2.5 mL inhalation solution 500 mcg 2.5 mL, NEB, QID, Dx: J44.9, # 300 vials, 3 Refill(s), Pharmacy: [facility] #[id number], 2.5 mL NEB QID,Instr:Dx: J44.9 Start Date: 04/16/17 Status: Orderedipratropium-albuterol 0.5 mg-2.5 mg/3 mLinhalation solution See Instructions, INHALE ONE VIAL VIA NEBULIZER BY MOUTH FOUR TIMES A DAY DX: J44.9(MEDICAR B LIMITS2 DOSES PER DAY), # 180 mL, 2 Refill(s), Pharmacy: [facility] #[id number] Start Date: 01/02/17 Status: Orderedmeloxicam 15 mg [...] TWICE A DAY, # 180 caps, eRx: [facility] #[id number] Start Date: 04/24/17 Status: Orderedpotassium chloride 10 mEq oral tablet, extended release See Instructions, TAKE 1 TABLET BY MOUTH EVERY DAY, # 30 unknown unit, 2 Refill( s), eRx: [facility] #[id number], TAKE 1 TABLET BY MOUTH EVERY DAY Start Date: 01/12/15 Status: OrderedpredniSONE 10 mg oral tablet See Instructions, 60mg x4 days 50mg x4 days 40mg x4 days 30mg x4 days 20mg x4 days 10mg x4 days, # 84 tabs, 0 Refill(s), Pharmacy: [facility] # [id number], 60mg x4 days; 50mg x4 days; 40mg x4 days; 30mg x4 days; 20mg x4 days ; 10mg x4 days Start Date: 05/28/17 Status: OrderedPromethazine DM 6.25 mg-15 mg/5 mL oral syrup 5 mL, Oral, q6hr, as needed for cough, # 120 mL, 0 Refill(s), Pharmacy: [facility] #[id number] Start Date: 09/14/16 Status: OrderedPromethazine DM 6.25 mg-15 mg/5 mL oral syrup 5 mL, Oral, q6hr, as needed for cough, # 120 mL, 0 Refill(s), Pharmacy: [facility] #[id number] Start Date: 07/10/17 Status: OrderedraNITIdine 150 mg oral capsule See Instructions, TAKE ONE CAPSULE BY MOUTH TWICE A DAY FOR 14 DAYS, # 28 caps, eRx: [facility] #[id number] Start Date: 06/28/17 Status: Orderedsucralfate 1 g oral tablet See Instructions, TAKE ONE TABLET BY MOUTH FOUR TIMES A DAY FOR 7 DAYS, # 28 tabs, eRx: [facility] #[id number] Start Date: 06/25/17 Status: OrderedSynthroid 50 mcg (0.05 mg) oral tablet 50 mcg 1 tabs, Oral, Daily, # 30 tabs, 0 Refill(s) Start Date: 01/09/17 Status: OrderedVentolin HFA 90 mcg/inh inhalation aerosol See Instructions, INHALE ONE PUFF BY MOUTH FOUR TIMES A DAY NEEDED FOR WHEEZING, # 1 Each, 5 Refill(s), Pharmacy: [facility] #[id number], INHALE ONE PUFF BY MOUTH FOUR TIMES A DAY NEEDED FOR WHEEZING Start Date: 12/14/16 Status: Ordered Results Chemistry Most recent to oldest [Reference Range]: 1 Sodium Lvl [135-144 mEq/L] 142 mEq/L (07/10/17 10:30 AM) Potassium Lvl [3.5-5.2 mEq/L] 4.6 mEq/L (07/10/17 10:30 AM) Chloride [99-111 mEq/L] 108 mEq/L (07/10/17 10:30 AM) CO2 [22-31 mEq/L] 26 mEq/L (07/10/17 10:30 AM) AGAP [3-20 mEq/L] 8 mEq/L (07/10/17 10:30 AM) BUN [10-20 mg/dL] 18 mg/dL (07/10/17 10:30 AM) Glucose Lvl [70-99 mg/dL] 67 mg/dL *LOW* (07/10/17 10:30 AM) Creatinine Lvl [0.57-1.11 mg/dL] 0.90 mg/dL (07/10/17 10:30 AM) eGFR [>60 mL/min] >60 mL/min 1 (07/10/17 10:30 AM) Calcium Lvl [8.4-10.2 mg/dL] 9.3 mg/dL (07/10/17 10:30 AM) TSH with Reflex Free T4 [0.35-4.94] 1.71 (07/10/17 10:30 AM) 1Result Comment: Multiply eGFR results by 1.21 for race. Immunizations Given and Recorded Vaccine Date Status Refusal Reason influenza virus vaccine, inactivated1 06/22/16 Given influenza virus vaccine, inactivated 06/25/15 Recorded pneumococcal 13-valent conjugate vaccine 03/22/15 Given pneumococcal 13-valent conjugate vaccine2 08/14/13 Given pneumococcal 23-polyvalent vaccine 08/14/13 Given zoster vaccine live 08/07/13 Given influenza virus vaccine, live 06/25/13 Given influenza virus vaccine, live 07/15/12 Given tetanus-diphth toxoids (Td) adult/adol 03/27/08 Recorded 1Result Comment: [id number] Comment: [06/10/2015 Uncharted] Uploaded in Error - [...] Visit Note Author: Feli Santiago DO Date: 07/10/17 Asthma exacerbation in COPD Doxycycline, Solu-Medrol IM, continue current breathing treatment regimen. Ordered: Office Visit Level 4 Est 34426 Chronic pain Refill provided today, return to clinic in 2-3 months. Ordered: Office Visit Level 4 Est 88978 Cough See above. Ordered: Office Visit Level 4 Est 51011 Hypothyroid TSH today with further recommendations after results. Ordered: Office Visit Level 4 Est 27025 TSH with Reflex Free T4
--- OUTSIDE RECORDS SUMMARY | 2018-04-19 06:30 | External Medical Summary | Referral Summary ---
:1939 Author Organization [facility] [place] Address [address] [place] [address] [place] [address] Care Team Providers Name Role Phone Feli Santiago Primary Care Physician Encounter VC Date(s): 03/19/17 - 03/19/17 [facility] [address] [place] [phone] [place] Discharge Diagnosis: COPD with acute exacerbation Discharge Disposition: 01-Home or Self Care Attending Physician: Feli Santiago DO Admitting Physician: Feli Santiago DO Vital Signs Most recent to oldest [Reference Range]: 1 Peripheral Pulse Rate [60-100 bpm] 64 bpm (03/19/17 9:16 AM) Blood Pressure [90-140/60-90 mmHg] 118/68 mmHg (03/19/17 9:16 AM) SpO2 91 % (03/19/17 9:16 AM) Problem List Condition Effective Dates Status [...] DX: J44.9, # 100 Each, 4 Refill(s), [id number], 3 mL Inhalation q2hr,PRN:as needed for wheezing,Instr:DX: J44.9 Start Date: 01/16/17 Status: Orderedallopurinol 100 mg oral tablet See Instructions, TAKE ONE TABLET BY MOUTH DAILY, # 90 tabs, 1 Refill(s), eRx: [facility] #[id number] Start Date: 02/12/17 Status: OrderedamLODIPine 5 mg oral tablet 5 mg 1 tabs, Oral, Daily, for blood pressures above 140, # 30 tabs, 11 Refill(s) , Pharmacy: [facility] #[id number], 1 tabs Oral Daily,Instr:for blood pressures above [...] Each, 0 Refill(s) Start Date: 05/15/16 Status: OrderedCartia XT 180 mg/24 hours oral capsule, extended release See Instructions, TAKE ONE CAPSULE BY MOUTH DAILY, # 30 caps, 3 Refill(s), eRx: [facility] #[id number] Start Date: 02/27/17 Status: Orderedcitalopram 10 mg oral tablet 10 mg 1 tabs, Oral, Daily, # 30 tabs, 11 Refill(s), Pharmacy: [facility] # [id number], 1 tabs Oral Daily Start Date: 08/14/16 Status: Ordereddoxycycline hyclate 100 mg oral capsule 100 mg 1 caps, Oral, BID, X 10 days, # 20 caps, 0 Refill(s), Pharmacy: [facility] #[id number], 1 caps Oral BID,x10 days Start Date: 03/19/17 Stop Date: 03/29/17 Status: Orderedgabapentin 100 mg oral capsule 100 mg 1 caps, Oral, BID, as needed for pain, 0 Refill(s) Start Date: 06/19/16 Status: Orderedgabapentin 600 mg oral tablet 600 mg 1 tabs, Oral, Bedtime (once a day), # 90 tabs, 0 Refill(s), Pharmacy: [facility] #[id number], 1 tabs Oral Bedtime (once a day) Start Date: 01/09/17 Status: Orderedgabapentin 600 mg oral tablet See Instructions, TAKE ONE TABLET BY MOUTH AT BEDTIME, # 90 tabs, 0 Refill(s), Pharmacy: [facility] #[id number], TAKE ONE TABLET BY MOUTH AT BEDTIME Start Date: 01/09/17 Status: Orderedipratropium-albuterol 0.5 mg-2.5 mg/3 mLinhalation solution See Instructions, INHALE ONE VIAL VIA NEBULIZER BY MOUTH FOUR TIMES A DAY DX: J44.9(MEDICAR B LIMITS2 DOSES PER DAY), # 180 mL, 2 Refill(s), Pharmacy: [facility] #[id number] Start Date: 01/02/17 Status: OrderedLasix 20 mg oral tablet 20 mg 1 tabs, Oral, Daily, # 90 tabs, 0 Refill(s), Pharmacy: [facility] # [id number], 1 tabs Oral Daily Start Date: 01/12/17 [...] 30 unknown unit, 2 Refill( s), eRx: [facility] #[id number], TAKE 1 TABLET BY MOUTH EVERY DAY Start Date: 01/12/15 Status: OrderedpredniSONE 20 mg oral tablet See Instructions, 80mg x3 days 60mg x3 days 40mg x3 days 20mg x3 days 10mg x3 days, # 32 tabs, 0Refill(s), Pharmacy: [facility] #[id number], 80mg x3 days ; 60mg x3 days; 40mg x3 days; 20mg x3 days; 10mg x3 days Start Date: 03/19/17 Status: OrderedPriLOSEC 20 mg oral delayed release capsule 20 mg 1 caps, Oral, BID, # 180 caps, 0 Refill(s), Pharmacy: [facility] # [id number], 1 caps Oral BID Start Date: 11/14/16 Status: OrderedPromethazine DM 6.25 mg-15 mg/5 mL oral syrup 5 mL, Oral, q6hr, as needed for cough, # 120 mL, 0 Refill(s), Pharmacy: [facility] #[id number] Start Date: 09/14/16 Status: OrderedSynthroid 50 mcg (0.05 mg) oral tablet 50 mcg 1 tabs, Oral, Daily, # 30 tabs, 0 Refill(s) Start Date: 01/09/17 Status: OrderedVentolin HFA 90 mcg/inh inhalation aerosol See Instructions, INHALE ONE PUFF BY MOUTH FOUR TIMES A DAY NEEDED FOR WHEEZING, # 1 Each, 5 Refill(s), Pharmacy: [facility] #[id number], INHALE ONE PUFF BY MOUTH FOUR TIMES [...] zoster vaccine live 08/07/13 Given 1Result Comment: [id number] Comment: [06/10/2015 Uncharted] Uploaded in Error - CC Procedures Procedure Date Related Diagnosis Body Site Appendectomy Cholecystectomy Hysterectomy Social History Social History Type Response Smoking Status Former smoker; Type: Cigarettes; Tobacco use per day: 1 Pack; Number of years: 30; Total pack years: 301 1Quit in 1990 Assessment and Plan Extracted from: Title: Office Visit Note Author: Feli Santiago DO Date: 03/19/17 Assessment/Plan COPD with acute exacerbation Doxycycline and prednisone taper. We will discontinue patient's Breo. Patient was given samples ofAnoroand Qvar. Ordered: Office Visit Level 4 Est 57444
--- OUTSIDE RECORDS SUMMARY | 2018-04-19 06:30 | External Medical Summary | Referral Summary ---
:1940 Author Organization [facility] Address [address] [place] [address] Care Team Providers Name Role Phone Feli Santiago Primary Care Physician Encounter VC Date(s): 04/16/17 - 04/16/17 [facility] [address] [place] [address]- [place] Discharge Diagnosis: Abnormal CT scan Discharge Disposition: 01-Home or Self Care Attending Physician: Xander Ford MD Vital Signs No data available for this section Problem List Condition Effective Dates Status Health [...] DX: J44.9, # 100 Each, 4 Refill(s), [facility][id number], 3 mL Inhalation q2hr,PRN:as needed for wheezing,Instr:DX: J44.9 Start Date: 01/16/17 Status: Orderedalbuterol 2.5 mg/3 mL (0.083%) inhalation solution 2.5 mg 3 mL, Inhalation, Daily, as needed for wheezing, Dx: J44.9, # 30 vials, 3 Refill(s), Pharmacy: [facility] #[id number], 3 mL Inhalation Daily,PRN:as needed for wheezing,Instr:Dx: J44.9 Start Date: 04/16/17 Status: Orderedallopurinol 100 mg oral tablet See Instructions, TAKE ONE TABLET BY MOUTH DAILY, # 90 tabs, 1 Refill(s), eRx: [facility] #[id number] Start Date: 02/12/17 Status: OrderedamLODIPine 5 mg oral tablet 5 mg 1 tabs, Oral, Daily, for blood pressures above 140, # 30 tabs, 11 Refill(s) , Pharmacy: [facility] #[id number], 1 tabs Oral Daily,Instr:for blood pressures above 140 Start Date: 08/14/16 Status: Orderedarformoterol 15 mcg/2 mL inhalation solution 1 Each, NEB, BID, Dx: J44.9, # 120 vials, 3 Refill(s), Pharmacy: [facility] #[id number] Start Date: 04/16/17 Status: Orderedaspirin 81 mg, [...] # 120 vials, 3 Refill(s), Pharmacy: [facility] #[id number], 2 mLNEB BID,Instr:Dx: J44.9 Start Date: 04/16/17 Status: OrderedCartia XT 180 mg/24 hours oral capsule, extended release See Instructions, TAKE ONE CAPSULE BY MOUTH DAILY, # 30 caps, 3 Refill(s), eRx: [facility] #[id number] Start Date: 02/27/17 Status: Orderedcitalopram 10 mg oral tablet 10 mg 1 tabs, Oral, Daily, # 30 tabs, 11 Refill(s), Pharmacy: [facility] # [id number], 1 tabs Oral Daily Start Date: 08/14/16 Status: Orderedfurosemide 20 mg oral tablet See Instructions, TAKE ONE TABLET BY MOUTH DAILY, # 90 tabs, eRx: [facility] #[id number] Start Date: 04/09/17 Status: Orderedgabapentin 100 mg oral capsule 100 mg 1 caps, Oral, TID, as needed for pain, # 270 caps, 2 Refill(s), Pharmacy : [facility] #[id number], 1 caps Oral TID,PRN:as needed for pain Start Date: 04/10/17 Status: Orderedgabapentin 600 mg oral tablet See Instructions, TAKE ONE TABLET BY MOUTH AT BEDTIME WITH 100MG TAB, # 90 tabs , 2 Refill(s), Pharmacy: [facility] #[id number], TAKE ONE TABLET BY MOUTH AT BEDTIME WITH 100MG TAB Start Date: 04/10/17 Status: Orderedgabapentin 600 mg oral tablet 600 mg 1 tabs, Oral, Bedtime (once a day), # 90 tabs, 0 Refill(s), Pharmacy: [facility] #[id number], 1 tabs Oral Bedtime (once a day) Start Date: 01/09/17 Status: Orderedipratropium 500 mcg/2.5 mL inhalation solution 500 mcg 2.5 mL, NEB, QID, Dx: J44.9, # 300 vials, 3 Refill(s), Pharmacy: [facility] #[id number], 2.5 mL NEB QID,Instr:Dx: J44.9 Start Date: 04/16/17 Status: Orderedipratropium-albuterol 0.5 mg-2.5 mg/3 mLinhalation solution See Instructions, INHALE ONE VIAL VIA NEBULIZER BY MOUTH FOUR TIMES A DAY DX: J44.9(MEDICAR B LIMITS2 DOSES PER DAY), # 180 mL, 2 Refill(s), Pharmacy: [facility] #[id number] Start Date: 01/02/17 Status: Orderedmeloxicam 15 mg [...] tabs, 0 Refill(s) Start Date: 04/10/17 Status: Orderedpotassium chloride 10 mEq oral tablet, extended release See Instructions, TAKE 1 TABLET BY MOUTH EVERY DAY, # 30 unknown unit, 2 Refill( s), eRx: [facility] #[id number], TAKE 1 TABLET BY MOUTH EVERY DAY Start Date: 01/12/15 Status: OrderedPriLOSEC 20 mg oral delayed release capsule 20 mg 1 caps, Oral, BID, # 180 caps, 0 Refill(s), Pharmacy: [facility] # [id number], 1 caps Oral BID Start Date: 11/14/16 Status: OrderedPromethazine DM 6.25 mg-15 mg/5 mL oral syrup 5 mL, Oral, q6hr, as needed for cough, # 120 mL, 0 Refill(s), Pharmacy: [facility] #[id number] Start Date: 09/14/16 Status: OrderedSynthroid 50 mcg (0.05 mg) oral tablet 50 mcg 1 tabs, Oral, Daily, # 30 tabs, 0 Refill(s) Start Date: 01/09/17 Status: OrderedVentolin HFA 90 mcg/inh inhalation aerosol See Instructions, INHALE ONE PUFF BY MOUTH FOUR TIMES A DAY NEEDED FOR WHEEZING, # 1 Each, 5 Refill(s), Pharmacy: [facility] #[id number], INHALE ONE PUFF BY MOUTH FOUR TIMES [...] zoster vaccine live 08/07/13 Given 1Result Comment: [id number] Comment: [06/10/2015 Uncharted] Uploaded in Error - CC Procedures Procedure Date Related Diagnosis Body Site Appendectomy Cholecystectomy Hysterectomy Social History Social History Type Response Smoking Status Former smoker; Type: Cigarettes; Tobacco use per day: 1 Pack; Number of years: 30; Total pack years: 301 1Quit in 1990 Assessment and Plan No data available for this section
--- OUTSIDE RECORDS SUMMARY | 2018-04-19 06:30 | External Medical Summary | Referral Summary ---
:1940 Author Organization [facility] Address [address] [place] [address] Care Team Providers Name Role Phone Feli Santiago Primary Care Physician Encounter VC Date(s): 04/16/17 - 04/16/17 [facility] [address] [place] [address]- [place] Discharge Diagnosis: Stage 2 moderate COPD by GOLD classification Discharge Diagnosis: Focal atelectasis Discharge Diagnosis: Nocturnal hypoxia Discharge Diagnosis: Obesity Discharge Diagnosis: Abnormal chest CT Discharge Disposition: 01-Home or Self Care Attending Physician: Xander Ford MD Admitting Physician: Xander Ford MD Vital Signs Most recent to oldest [Reference Range]: 1 Peripheral Pulse Rate [60-100 bpm] 76 bpm (04/16/17 9:56 AM) Respiratory Rate [14-20 br/min] 20 br/min (04/16/17 9:56 AM) Blood Pressure [90-140/60-90 mmHg] 122/62 mmHg (04/16/17 9:56 AM) SpO2 93 % (04/16/17 9:56 AM) Problem List Condition Effective Dates Status [...] DX: J44.9, # 100 Each, 4 Refill(s), Pharmacy:[facility] #[id number], 3 mL Inhalation q2hr,PRN:as needed for wheezing,Instr:DX: J44.9 Start Date: 01/16/17 Status: Orderedalbuterol 2.5 mg/3 mL (0.083%) inhalation solution 2.5 mg 3 mL, Inhalation, Daily, as needed for wheezing, Dx: J44.9, # 30 vials, 3 Refill(s), Pharmacy: [facility] #[id number], 3 mL Inhalation Daily,PRN:as needed for wheezing,Instr:Dx: J44.9 Start Date: 04/16/17 Status: Orderedallopurinol 100 mg oral tablet See Instructions, TAKE ONE TABLET BY MOUTH DAILY, # 90 tabs, 1 Refill(s), eRx: [facility] #[id number] Start Date: 02/12/17 Status: OrderedamLODIPine 5 mg oral tablet 5 mg 1 tabs, Oral, Daily, for blood pressures above 140, # 30 tabs, 11 Refill(s) , Pharmacy: [facility] #[id number], 1 tabs Oral Daily,Instr:for blood pressures above 140 Start Date: 08/14/16 Status: Orderedarformoterol 15 mcg/2 mL inhalation solution 1 Each, NEB, BID, Dx: J44.9, # 120 vials, 3 Refill(s), Pharmacy: [facility] #[id number] Start Date: 04/16/17 Status: Orderedaspirin 81 mg, [...] J44.9, # 120 vials, 3 Refill(s), Pharmacy: [facility] #[id number], 2 mLNEB BID,Instr:Dx: J44.9 Start Date: 04/16/17 Status: OrderedCartia XT 180 mg/24 hours oral capsule, extended release See Instructions, TAKE ONE CAPSULE BY MOUTH DAILY, # 30 caps, 3 Refill(s), eRx: [facility] #[id number] Start Date: 02/27/17 Status: Orderedcitalopram 10 mg oral tablet 10 mg 1 tabs, Oral, Daily, # 30 tabs, 11 Refill(s), Pharmacy: [facility] # [id number], 1 tabs Oral Daily Start Date: 08/14/16 Status: Orderedfurosemide 20 mg oral tablet See Instructions, TAKE ONE TABLET BY MOUTH DAILY, # 90 tabs, eRx: [facility] #[id number] Start Date: 04/09/17 Status: Orderedgabapentin 100 mg oral capsule 100 mg 1 caps, Oral, TID, as needed for pain, # 270 caps, 2 Refill(s), Pharmacy : [facility] #[id number], 1 caps Oral TID,PRN:as needed for pain Start Date: 04/10/17 Status: Orderedgabapentin 600 mg oral tablet See Instructions, TAKE ONE TABLET BY MOUTH AT BEDTIME WITH 100MG TAB, # 90 tabs , 2 Refill(s), Pharmacy: [facility] #[id number], TAKE ONE TABLET BY MOUTH AT BEDTIME WITH 100MG TAB Start Date: 04/10/17 Status: Orderedgabapentin 600 mg oral tablet 600 mg 1 tabs, Oral, Bedtime (once a day), # 90 tabs, 0 Refill(s), Pharmacy: [facility] #[id number], 1 tabs Oral Bedtime (once a day) Start Date: 01/09/17 Status: Orderedipratropium 500 mcg/2.5 mL inhalation solution 500 mcg 2.5 mL, NEB, QID, Dx: J44.9, # 300 vials, 3 Refill(s), Pharmacy: [facility] #[id number], 2.5 mL NEB QID,Instr:Dx: J44.9 Start Date: 04/16/17 Status: Orderedipratropium-albuterol 0.5 mg-2.5 mg/3 mLinhalation solution See Instructions, INHALE ONE VIAL VIA NEBULIZER BY MOUTH FOUR TIMES A DAY DX: J44.9(MEDICAR B LIMITS2 DOSES PER DAY), # 180 mL, 2 Refill(s), Pharmacy: [facility] #[id number] Start Date: 01/02/17 Status: Orderedmeloxicam 15 mg [...] unknown unit, 2 Refill( s), eRx: [facility] #[id number], TAKE 1 TABLET BY MOUTH EVERY DAY Start Date: 01/12/15 Status: OrderedPriLOSEC 20 mg oral delayed release capsule 20 mg 1 caps, Oral, BID, # 180 caps, 0 Refill(s), Pharmacy: [facility] # [id number], 1 caps Oral BID Start Date: 11/14/16 Status: OrderedPromethazine DM 6.25 mg-15 mg/5 mL oral syrup 5 mL, Oral, q6hr, as needed for cough, # 120 mL, 0 Refill(s), Pharmacy: [facility] #[id number] Start Date: 09/14/16 Status: OrderedSynthroid 50 mcg (0.05 mg) oral tablet 50 mcg 1 tabs, Oral, Daily, # 30 tabs, 0 Refill(s) Start Date: 01/09/17 Status: OrderedVentolin HFA 90 mcg/inh inhalation aerosol See Instructions, INHALE ONE PUFF BY MOUTH FOUR TIMES A DAY NEEDED FOR WHEEZING, # 1 Each, 5 Refill(s), Pharmacy: [facility] #[id number], INHALE ONE PUFF BY MOUTH FOUR TIMES [...] zoster vaccine live 08/07/13 Given 1Result Comment: [email or web address] Comment: [06/10/2015 Uncharted] Uploaded in Error - CC Procedures Procedure Date Related Diagnosis Body Site Appendectomy Cholecystectomy Hysterectomy Social History Social History Type Response Smoking Status Former smoker; Type: Cigarettes; Tobacco use per day: 1 Pack; Number of years: 30; Total pack years: 301 1Quit in 1990 Assessment and Plan Extracted from: Title: Office Visit Note Author: Xander Ford MD Date: 04/16/17 Assessment/Plan 1.Abnormal chest CT 1. Patient is very concerned about these nodules. I've given her reassurance. She still would like to follow-up in a year with a CT scan without contrast. We'll go ahead and schedule this. 2. CT was reviewed with the patient. 2.Stage 2 moderate COPD by GOLD classification 1. We'll attempt to get her onmore affordable medications. We'll place her on a nebulizer with budesonide 0.5 mganda formoterol 15 gvia nebulizer twice a day. 2. Continue on with the albuterol andipratropiumvia nebulizer every 4 when necessary. 3. We'll have her come back and see our physician assistantwith a 6 minute walkand a complete pulmonary function test in 3weeks to seeif the above regimen is helpful. 4. Discontinue the Anoro, Breoand Qvar due to expense. 5. I have reviewed her spirometry with her which is consistent with moderate chronic obstructive pulmonary disease, GOLD stage II. 3.Obesity 1. Weight loss was encouraged. 4.Focal atelectasis 1. This does appear better on her current CT scan compared to the previous. 5.Nocturnal hypoxia 1. Continue oxygen at2 L/mof oxygen at night.
--- OUTSIDE RECORDS SUMMARY | 2018-04-19 06:30 | External Medical Summary | Referral Summary ---
:1940 Author Organization [facility] Address [address] [place] [address] Care Team Providers Name Role Phone Feli Santiago Primary Care Physician Encounter VC Date(s): 05/23/17 - 05/23/17 [facility], [facility] [address] [place] [address]- us Discharge Diagnosis: Nocturnal hypoxia Discharge Diagnosis: Stage 2 moderate COPD by GOLD classification Discharge Diagnosis: Abnormal CT scan, chest Discharge Disposition: 01-Home or Self Care Attending Physician: Xander Ford MD Admitting Physician: Xander Ford MD Referring Physician: Xander Ford MD Vital Signs Most recent to oldest [Reference Range]: 1 Peripheral Pulse Rate [60-100 bpm] 58 bpm *LOW* (05/23/17 10:09 AM) Respiratory Rate [14-20 br/min] 20 br/min (05/23/17 10:09 AM) Blood Pressure [90-140/60-90 mmHg] 118/62 mmHg (05/23/17 10:09 AM) SpO2 92 % (05/23/17 10:09 AM) Problem List Condition Effective Dates Status [...] DX: J44.9, # 100 Each, 4 Refill(s), Pharmacy:[facility] #[id number], 3 mL Inhalation q2hr,PRN:as needed for wheezing,Instr:DX: J44.9 Start Date: 01/16/17 Status: Orderedalbuterol 2.5 mg/3 mL (0.083%) inhalation solution 2.5 mg 3 mL, Inhalation, Daily, as needed for wheezing, Dx: J44.9, # 30 vials, 3 Refill(s), Pharmacy: [facility] #[id number], 3 mL Inhalation Daily,PRN:as needed for wheezing,Instr:Dx: J44.9 Start Date: 04/16/17 Status: Orderedallopurinol 100 mg oral tablet See Instructions, TAKE ONE TABLET BY MOUTH DAILY, # 90 tabs, 1 Refill(s), eRx: [facility] #[id number] Start Date: 02/12/17 Status: OrderedamLODIPine 5 mg oral tablet 5 mg 1 tabs, Oral, Daily, for blood pressures above 140, # 30 tabs, 11 Refill(s) , Pharmacy: [facility] #[id number], 1 tabs Oral Daily,Instr:for blood pressures above 140 Start Date: 08/14/16 Status: Orderedarformoterol 15 mcg/2 mL inhalation solution 1 Each, NEB, BID, Dx: J44.9, # 120 vials, 3 Refill(s), Pharmacy: [facility] #[id number] Start Date: 04/16/17 Status: Orderedaspirin 81 mg, [...] J44.9, # 120 vials, 3 Refill(s), Pharmacy: [facility] #[id number], 2 mLNEB BID,Instr:Dx: J44.9 Start Date: 04/16/17 Status: OrderedCartia XT 180 mg/24 hours oral capsule, extended release See Instructions, TAKE ONE CAPSULE BY MOUTH DAILY, # 30 caps, 3 Refill(s), eRx: [facility] #[id number] Start Date: 02/27/17 Status: Orderedcitalopram 10 mg oral tablet 10 mg 1 tabs, Oral, Daily, # 30 tabs, 11 Refill(s), Pharmacy: [facility] # [id number], 1 tabs Oral Daily Start Date: 08/14/16 Status: Orderedfurosemide 20 mg oral tablet See Instructions, TAKE ONE TABLET BY MOUTH DAILY, # 90 tabs, eRx: [facility] #[id number] Start Date: 04/09/17 Status: Orderedgabapentin 100 mg oral capsule 100 mg 1 caps, Oral, TID, as needed for pain, # 270 caps, 2 Refill(s), Pharmacy : [facility] #[id number], 1 caps Oral TID,PRN:as needed for pain Start Date: 04/10/17 Status: Orderedgabapentin 600 mg oral tablet See Instructions, TAKE ONE TABLET BY MOUTH AT BEDTIME WITH 100MG TAB, # 90 tabs , 2 Refill(s), Pharmacy: [facility] #[id number], TAKE ONE TABLET BY MOUTH AT BEDTIME WITH 100MG TAB Start Date: 04/10/17 Status: Orderedgabapentin 600 mg oral tablet 600 mg 1 tabs, Oral, Bedtime (once a day), # 90 tabs, 0 Refill(s), Pharmacy: [facility] #[id number], 1 tabs Oral Bedtime (once a day) Start Date: 01/09/17 Status: Orderedipratropium 500 mcg/2.5 mL inhalation solution 500 mcg 2.5 mL, NEB, QID, Dx: J44.9, # 300 vials, 3 Refill(s), Pharmacy: [facility] #[id number], 2.5 mL NEB QID,Instr:Dx: J44.9 Start Date: 04/16/17 Status: Orderedipratropium-albuterol 0.5 mg-2.5 mg/3 mLinhalation solution See Instructions, INHALE ONE VIAL VIA NEBULIZER BY MOUTH FOUR TIMES A DAY DX: J44.9(MEDICAR B LIMITS2 DOSES PER DAY), # 180 mL, 2 Refill(s), Pharmacy: [facility] #[id number] Start Date: 01/02/17 Status: Orderedmeloxicam 15 mg [...] TWICE A DAY, # 180 caps, eRx: [facility] #[id number] Start Date: 04/24/17 Status: Orderedpotassium chloride 10 mEq oral tablet, extended release See Instructions, TAKE 1 TABLET BY MOUTH EVERY DAY, # 30 unknown unit, 2 Refill( s), eRx: [facility] #[id number], TAKE 1 TABLET BY MOUTH EVERY DAY Start Date: 01/12/15 Status: OrderedPromethazine DM 6.25 mg-15 mg/5 mL oral syrup 5 mL, Oral, q6hr, as needed for cough, # 120 mL, 0 Refill(s), Pharmacy: [facility] #[id number] Start Date: 09/14/16 Status: OrderedraNITIdine 150 mg oral capsule See Instructions, TAKE ONE CAPSULE BY MOUTH TWICE A DAY FOR 14 DAYS, # 28 caps, eRx: [facility] #[id number] Start Date: 05/21/17 Status: Orderedsucralfate 1 g oral tablet See Instructions, TAKE ONE TABLET BY MOUTH FOUR TIMES A DAY FOR 7 DAYS, # 28 tabs, eRx: [facility] #[id number], TAKE ONE TABLET BY MOUTH FOUR TIMES [...] WHEEZING, # 1 Each, 5 Refill(s), Pharmacy: [facility] #[id number], INHALE ONE PUFF BY MOUTH FOUR TIMES [...] toxoids (Td) adult/adol 03/27/08 Recorded 1Result Comment: [id number] Comment: [06/10/2015 Uncharted] Uploaded in Error - CC Procedures Procedure Date Related Diagnosis Body Site Appendectomy Cholecystectomy Hysterectomy Social History Social History Type Response Smoking Status Former smoker; Type: Cigarettes; Tobacco use per day: 1 Pack; Number of years: 30; Total pack years: 30; 1 1Quit in 1990 Assessment and Plan Extracted from: Title: Ambulatory Patient Education Author: Xander Ford MD Date: Allergy Asthma, Adult Asthma is a recurring condition in which the airways tighten and narrow. Asthma can make it difficult to breathe. It can cause coughing, wheezing, and shortness of breath. Asthma episodes, also called a sthma attacks, range from minor to life-threatening. Asthma cannot be cured, but medicines and lifestyle changes can help control it. CAUSES Asthma is believed to be caused by inherited (genetic) and environmental factors, but its exact cause is unknown. Asthma may be triggered by allergens, lung infections, or irritants in the air. Asthma t riggers are different for each person. Common triggers include: Animal dander. Dust mites. Cockroaches. Pollen from trees or grass. Mold. Smoke. Air pollutants such as dust, household production planning supervisor, hair sprays, aerosol sprays, paint fumes, strong chemicals, or strong odors. Cold air, weather changes, and winds (which increase molds and pollens in the air). Strong emotional expressions such as crying or laughing hard. Stress. Certain medicines (such as aspirin) or types of drugs (such as beta-blockers). Sulfites in foods and drinks. Foods and drinks that may contain sulfites include dried fruit, potato chips, and sparkling grape juice. Infections or inflammatory conditions such as the flu, a cold, or an inflammation of the nasal membranes (rhinitis). Gastroesophageal reflux disease (GERD). Exercise or strenuous activity. SYMPTOMS Symptoms may occur immediately after asthma is triggered or many hours later. Symptoms include: Wheezing. Excessive nighttime or clinical services professional coughing. Frequent or severe coughing with a common cold. Chest tightness. Shortness of breath. DIAGNOSIS The diagnosis of asthma is made by a review of your medical history and a physical exam. Tests may also be performed. These may include: Lung function studies. These tests show how much air you breathe in and out. Allergy tests. Imaging tests such as X-rays. TREATMENT Asthma cannot be cured, but it can usually be controlled. Treatment involves identifying and avoiding your asthma triggers. It also involves medicines. There are 2 classes of medicine used for asthma treatment: Controller medicines. These prevent asthma symptoms from occurring. They are usually taken every day. Reliever or rescue medicines. These quickly relieve asthma symptoms. They are used as needed and provide short-term relief. Your health care provider will help you create an asthma action plan. An asthma action plan is a written plan for managing and treating your asthma attacks. It includes a list of your asthma triggers an d how they may be avoided. It also includes information on when medicines should be taken and when their dosage should be changed. An action plan may also involve the use of a device called a peak flow meter. A peak flow meter measures how well the lungs are working. It helps you monitor your condition. HOME CARE INSTRUCTIONS Take medicines only as directed by your health care provider. Speak with your health care provider if you have questions about how or when to take the medicines. Use a peak flow meter as directed by your health care provider. Record and keep track of readings. Understand and use the action plan to help minimize or stop an asthma attack without needing to seek medical care. Control your home environment in the following ways to help prevent asthma attacks: Do not smoke. Avoid being exposed to secondhand smoke. Change your heating and air conditioning filter regularly. Limit your use of fireplaces and wood stoves. Get rid of pests (such as roaches and mice) and their droppings. Throw away plants if you see mold on them. Clean your floors and dust regularly. Use unscented cleaning products. Try to have someone else vacuum for you regularly. Stay out of rooms while they are being vacuumed and for a short while afterward. If you vacuum, use a dust mask from a hardware store, a double-lay ered or microfilter vacuum can cleaner bag, or a vacuum can cleaner with a HEPA filter. Replace carpet with wood, tile, or vinyl bernabe. Carpet can trap dander and dust. Use allergy-proof pillows, mattress covers, and box spring covers. Wash bed sheets and blankets every week in hot water and dry them in a dryer. Use blankets that are made of polyester or cotton. Clean bathrooms and edil with bleach. If possible, have someone repaint the akins in these rooms with mold-resistant paint. Keep out of the rooms that are being cleaned and painted. Wash hands frequently. SEEK MEDICAL CARE IF: You have wheezing, shortness of breath, or a cough even if taking medicine to prevent attacks. The colored mucus you cough up (sputum) is thicker than usual. Your sputum changes from clear or white to yellow, green, nix, or bloody. You have any problems that may be related to the medicines you are taking ( such as a rash, itching, swelling, or trouble breathing). You are using a reliever medicine more than 2 3 times per week. Your peak flow is still at 50 79% of your personal best after following your action plan for 1 hour. You have a fever. SEEK IMMEDIATE MEDICAL CARE IF: You seem to be getting worse and are unresponsive to treatment during an asthma attack. You are short of breath even at rest. You get short of breath when doing very little physical activity. You have difficulty eating, drinking, or talking due to asthma symptoms. You develop chest pain. You develop a fast heartbeat. You have a bluish color to your lips or fingernails. You are light-headed, dizzy, or faint. Your peak flow is less than 50% of your personal best. This information is not intended to replace advice given to you by your health care provider. Make sure you discuss any questions you have with your health care provider. Document Released: 09/17/2006 Document Revised: 06/07/2016 Document Reviewed: 04/16/2014 [employer] Patient Education 2016 [employer] No follow up information was provided. Extracted from: Title: Office Visit Note Author: Xander Ford MD Date: 05/23/17 1.Stage 2 moderate COPD by GOLD classification 1. Continue on the same medical regimen. 2. I did not encourage portable oxygen this patient. I think seeadverse problem of having to care the suctionfar outweighs the benefit of just increasing her O2 sat from 88 percent. 3. Encouraged influenza vaccination in the fall. 4. We'll follow her up in one yearwith a CT scanas per previous office visit note. 5. Would be happy see the patient back when necessary should the need arise. Ordered: Diffusing [place] [id number] pulmonary stress testing simple [id number] pulmonary stress testing simple [id number] Spirometry POC 2.Abnormal CT scan, chest 1. We'll see her back one year with repeat CT scan as per previous office note. 3.Nocturnal hypoxia 1. Continue supplemental oxygen at 2 L/m at night.
[2018-04-19] MEDS: ACETAMINOPHEN 500 MG TABLET PO SCH (06:49)
--- NOTE | 2018-04-19 07:56 | XRay Report ---
Indication: cough, sob PROCEDURE: XR chest 1V: Encounter: Initial Comparison: March 18, 2018 Findings: New opacity in the right middle and lower lobe partially obscuring the right heart border. There is no pleural effusion or pneumothorax. The heart size, pulmonary vascularity and mediastinal contours are unchanged. Right IJ port. IMPRESSION: Right basilar atelectasis or pneumonia. .
[2018-04-19] MEDS: LEVOFLOXACIN PB 750 MG/150 ML BAG IV SCH (08:19)
[2018-04-19] MEDS ORDERED: ONDANSETRON 4 MG/2 ML INJECTION IVP PRN (09:15)
[2018-04-19] MEDS ORDERED: HYDROCODONE/APAP 5mg/325mg TABLET PO PRN (09:19)
[2018-04-19] MEDS ORDERED: ALLOPURINOL 100 MG TABLET PO PRN (09:19)
--- NOTE | 2018-04-19 09:19 | History & Physical Report ---
History of Present Illness Date: 04/19/18 Chief complaint: Can't catch my breath HPI: Delma Marcum is a 77-year-old female with a history of COPD, and uses 2L of nocturnal oxygen. She reports a 1-week history of progressive dyspnea along with a cough which has turned productive with yellow sputum. She has been using oxygen during the day to keep her sats up. She has increased her breathing treatment frequency. She has had mild sinus congestion but denies sore throat. She denies fevers, chills or sweating. She denies chest pain, palpitations, dizziness or lightheadedness. She denies appetite changes, nausea, vomiting, diarrhea or constipation. She has urinary frequency related to Lasix use but denies dysuria. She occasionally has leg swelling for which she takes Lasix. She denies any rashes or wounds. No recent falls. She saw her primary care provider, Dr. Santiago, on 04/18/18 and was started on prednisone. However, that evening she was unable to sleep because of dyspnea. She presented to [facility] emergency department on 04/19/18. Her oxygen saturation was 78% on 3 L flow rate was increased to 6 L. She was started on Solu-Medrol and given a DuoNeb treatment. Her white count was normal, but lactate was elevated at 2.8. Chest x-ray showed right sided pneumonia and she was started on Levaquin. Dr. Stanley was contacted and the patient was admitted to inpatient status. Length of stay is expected to exceed 2 overnights. Review of Systems All systems PM: 10-point ROS was reviewed, no additional remarkable complaints except - Constitutional Constitutional: Present: as per HPI - EENMT Eyes: Absent: change in vision Balance: Absent: vertigo Nose: Present: as per HPI Mouth/Throat: Present: as per HPI - Cardiovascular Cardiovascular: Present: as per HPI Vascular: Present: see HPI - Respiratory Respiratory: Present: as per HPI - Gastrointestinal Gastrointestinal: Present: as per HPI - Genitourinary Genitourinary: Present: as per HPI - Musculoskeletal Musculoskeletal: Present: back pain (chronic lower back) - Integumentary/Breasts Integumentary: Present: as per HPI - Neurological Neurological: Present: as per HPI - Psychiatric Psychiatric: Absent: anxiety - Endocrine Endocrine: Present: as per HPI - Hematologic/Lymphatic Hematologic/Lymphatic: Present: easy bruising - Allergic/Immunologic Allergic/Immunologic: Absent: lip swelling Past Medical History Medical History: Medical History (Last Updated 02/20/18 @ 13:15 by Kenna Huber) Anxiety Bronchitis CHF (congestive heart failure) Cataract Emphysema/COPD High blood pressure High cholesterol Hx of cataract Neuropathy Osteoarthritis Pneumonia Medical History Updates: IgG deficiency. Moderate pulmonary hypertension. Obesity with BMI 34.1 Surgical History: TAHBSO, appendectomy, cholecystectomy, arthroscopic procedure knee, cataract removal. insertion of PowerPort 03/18/2018 for monthly IVIG therapy. Echo on 07/23/17. 1. Technically difficult study. 2. Normal LV systolic function with ejection fraction of 70%. 3. Trace of mitral regurgitation. 4. Trace of tricuspid regurgitation with moderate pulmonary hypertension with estimated pulmonary artery systolic pressure of 44. Family History: Family History (Last Updated 02/20/18 @ 13:17 by Kenna Huber) Mother Cancer of lung Cancer Father Heart attack Arthritis Heart failure Brother Cancer of colon Skin cancer (melanoma) Family History Updates: Mother of oat cell cancer age 61. Father of heart disease at age 78. Sister of CHF at age 80. Brother still living, age 82. He has had cancer. Sister still living, age 76. Healthy. One daughter at age 54 of cardiac arrest. She has 2 sons and 2 daughters still living who are healthy. Family History: As Above - Social History Smoking status: Former smoker (quit in 1990) Packs per day: 1 Packs-years: 30 Substance use type: does not use Alcohol intake frequency: holidays/special occasions only Household members: none ( since 2006) Current residence: Apartment/Private Home Medications Home Medications Medication Instructions Recorded Confirmed Type Apixaban [Eliquis] 5 mg PO BID #60 tab 07/25/17 04/19/18 Rx Flecainide [Tambocor] 50 mg PO BID #60 tab 07/25/17 04/19/18 Rx Prilosec (Omeprazole) 20 mg 20 mg PO BID 90 Days #180 cap 09/18/17 04/19/18 History capsule,delayed release Allopurinol [Zyloprim] 100 mg PO PRN PRN 11/26/17 04/19/18 History Gabapentin [Neurontin] 600 mg PO HS 03/15/18 04/19/18 History Acetaminophen [Tylenol Arthritis] 650 mg PO PRN PRN 03/18/18 04/19/18 History Albuterol HFA Inhaler [Ventolin 1 puff ORAL INH PRN PRN 03/18/18 04/19/18 History Hfa 90 mcg/actuation] Hydrocodone/APAP 5/325 [[place] 1 - 2 tab PO Q6HR PRN #10 tab 03/18/18 04/19/18 Rx 5/325] Ibuprofen [Motrin] 400 - 800 mg PO Q6H PRN tab 03/18/18 04/19/18 Rx Furosemide [Lasix] 20 mg PO PRN PRN 04/19/18 04/19/18 History dilTIAZem HCl [Cartia Xt] 180 mg PO DAILY 04/19/18 04/19/18 History Allergies Allergy/AdvReac Type Severity Reaction Status Date / Time cefaclor AdvReac Intermediate "loss of Verified 03/18/18 08:29 muscle control" Exam Vital Signs: Temperature 96.4 F L 04/19/18 08:49 Pulse Rate 90 04/19/18 08:49 Respiratory Rate 18 04/19/18 08:49 Blood Pressure 139/68 04/19/18 08:49 Pulse Oximetry 93 04/19/18 08:49 Height/Weight/BMI: Height 1.57 m Weight 85.5 kg - Constitutional Present: no acute distress, well nourished, well developed - Routine HEENT Exam Head: Present: normocephalic Eye: Present: PERRL. Absent: conjunctival icterus, scleral injection ENT: Present: mucous membranes moist - Routine Neck Exam Present: supple - Routine Respiratory Exam Present: decreased breath sounds. Absent: wheezes, crackles - Routine Cardiovascular Exam Present: RRR, S1, S2 - Routine Abdominal Exam Present: soft, normoactive bowel sounds, non distended, non tender - Routine Extremities Exam Present: edema (1+ around ankles) - Routine Skin Exam Present: intact, dry, warm - Routine Neurological Exam Present: alert, oriented X3, CN II-XII intact, moving all extremities, vision grossly intact, hearing grossly intact, normal speech. Absent: sensory deficit , motor deficit, altered mental status, facial asymmetry - Routine Psychiatric Exam Present: normal affect, normal thought process, cooperative Results - Labs CBC & Chem 7: 04/19/18 06:17 07/20/18 06:17 Microbiology Results: Microbiology 04/19/18 06:41 Peripheral/Iv Start Blood Culture - Preliminary Culture Initiated - Results Pending 04/19/18 06:36 Peripheral/Iv Start Blood Culture - Preliminary Culture Initiated - Results Pending - ECG Data Tracing #1 I reviewed this ECG and interpreted as documented below: NSR, rate [address] segment elevation/depression Poor R-wave progression Normal axis - Imaging and Cardiology Chest x-ray Status: image reviewed by me Additional comments: Right sided infiltrate Port Assessment and Plan Assessment and Plan: Assessment COPD exacerbation Community-acquired pneumonia. Severe sepsis based on lactate of 2.8, and the following SIRS criteria: Tachycardia and tachypnea. Hypoxic respiratory insufficiency. Baseline oxygen use is 2 L at night. History of A. fib, anticoagulated on Eliquis. In NSR at time of admission. Moderate pulmonary hypertension. Dyslipidemia. Hypertension. Osteoarthritis. Anxiety. Obesity, BMI 34.1 Plan Admit inpatient status under the hospitalist service. PCP: Dr. Santiago. COPD with exacerbation -She received IV Solu-Medrol in the ER. Will continue with prednisone 60 mg daily. -DuoNeb treatments every 6 hours, Pulmicort twice a day. -Acapella -Wean oxygen as able. Encourage ambulation -She's seen Dr. Castanon in the past. Community-acquired pneumonia with severe sepsis -She received Levaquin in the ER, but since she is on flecainide will change antibiotics to Rocephin and doxycycline to cover for both pneumonia and COPD exacerbation. -Sputum culture, urine antigens for Legionella and strep pneumoniae -Repeat lactate. Check pro calcitonin -She has not been hypotensive. History of A. fib -Telemetry -Continue Eliquis, Flecainide -Grease Worker: Dr. Lind. Advanced directives -Completed: She has DPOA and living will. -Code status: DNR. Assessment/plan was discussed with Dr. Stanley. DVT Prophylaxis: SCD's, Eliquis GI Prophylaxis: Omeprazole Resuscitation Status: Do Not Resuscitate - Physician Narrative Physician: other (Cris Stanley MD) Narrative: Date: 04/19/18 Time: 907 I have independently interviewed and examined patient. Patient chart reviewed. Case discussed with my SOLE RUFFER. Care plan developed with my supervision, agree with above. A pleasant 77-year-old female patient with known history of COPD, presented to emergency room with 1 week history of worsening shortness of breath along with productive yellowish couple and expectoration. Patient usually requires 2 L supplemental oxygen via nasal cannula at nighttime however for the past week, she has been using 34 liters supplemental oxygen continuously with shortness of breath. Patient also was prescribed prednisone medication by PCP to assist with symptoms. On initial ER presentation, patient had oxygen saturations of 78 % on 3 L by nasal cannula. After DuoNeb nebulization treatment, IV Solu-Medrol, subjectively, patient started improving and oxygen saturations were maintained on 5 L by nasal cannula. At the time of examination at bedside, patient's oxygen saturations 97% on 5 L via nasal cannula. Portable chest x-ray showed evidence of right lung base atelectasis versus pneumonia. Review of previous chest x-rays ranging from shows persistent right lung base atelectasis findings. Patient will be admitted to medical floor. Exacerbation of COPD, significant hypoxia and concern for underlying pneumonia. Physical exam: AAO x 3, in moderate respiratory distress PERRLA, EOMI S1 and S2 heard on auscultation, tachycardic. No murmurs Breath sounds diminished on auscultation bilaterally, crackles on auscultation in lung bases. No wheezing. Abdomen soft, nontender, positive bowel sounds Trace edema bilateral lower extremities. Strength preserved, sensations intact bilateral upper and lower extremities. Assessment: Exacerbation of COPD Possible right lung base infiltrate versus atelectasis Acute on chronic hypoxemic respiratory failure Paroxysmal atrial fibrillation Hypertension Hyperlipidemia Pulmonary hypertension Anxiety Plan: Antibiotic coverage with IV Rocephin and doxycycline. Sputum culture, requested. Lactic acid 2.8, we will repeat lactic acid levels and monitor. Supplemental oxygen as needed to maintain oxygen saturations greater than 91%. Continue oral prednisone 60 mg daily. Continue home medications Eliquis with history of atrial fibrillation. Hospital Course Summary Disclaimer: The visit summary below is not to be considered part of the above Progress Note. Hospital Course: 04/19/18 Admit inpatient status under the hospitalist service. PCP: Dr. Santiago. COPD with exacerbation -She received IV Solu-Medrol in the ER. Will continue with prednisone 60 mg daily. -DuoNeb treatments every 6 hours, Pulmicort twice a day. -Acapella -Wean oxygen as able. Encourage ambulation -She's seen Dr. Castanon in the past. Community-acquired pneumonia with severe sepsis -She received Levaquin in the ER, but since she is on flecainide will change antibiotics to Rocephin and doxycycline to cover for both pneumonia and COPD exacerbation. -Sputum culture, urine antigens for Legionella and strep pneumoniae -Repeat lactate. Check pro calcitonin -She has not been hypotensive. History of A. fib -Telemetry -Continue Eliquis, Flecainide -Grease Worker: Dr. Lind. Advanced directives -Completed: She has DPOA and living will. -Code status: DNR.
[2018-04-19] MEDS: ALBUTEROL/IPRATROPIUM 2.5mg-0.5mg/3ml NEB AEROSOL SCH ×3 (10:03→21:30)
[2018-04-19] MEDS: OMEPRAZOLE 20 MG CAPSULE PO SCH ×2 (10:29→20:23)
[2018-04-19] MEDS: FLECAINIDE 50 MG TABLET PO SCH ×2 (10:29→20:23)
[2018-04-19] MEDS: CEFTRIAXONE 1 G in NS 100 ML IV SCH (10:38)
[2018-04-19] MEDS: FUROSEMIDE 20 MG TABLET PO PRN (10:38)
[2018-04-19] MEDS: APIXABAN 5 MG TABLET PO SCH ×2 (10:38→20:24)
[2018-04-19] MEDS: DOXYCYCLINE 100 MG in NS 250ml 250 ML IV SCH (11:49)
[2018-04-19] MEDS: ACETAMINOPHEN 325 MG TABLET PO PRN ×2 (13:00→20:26)
[2018-04-19] MEDS ORDERED: NS 1,000 ML IV SCH (16:30)
[2018-04-19] MEDS: GABAPENTIN 600 MG TABLET PO SCH (20:24)
[2018-04-19] MEDS: BUDESONIDE INH.SOLN 0.5mg/2ml NEB AEROSOL SCH (21:30)
[2018-04-20] MEDS: ALBUTEROL/IPRATROPIUM 2.5mg-0.5mg/3ml NEB AEROSOL PRN ×4 (01:05→23:49)
[2018-04-20] MEDS: DOXYCYCLINE 100 MG in NS 250ml 250 ML IV SCH ×3 (01:07→23:38)
[2018-04-20] MEDS: SALINE FLUSH 10ml SYRINGE IVF PRN ×2 (01:09→09:59)
[2018-04-20] MEDS: ACETAMINOPHEN 325 MG TABLET PO PRN (06:31)
[2018-04-20] MEDS: ACETAMINOPHEN 500 MG TABLET PO SCH ×2 (07:42→13:12)
[2018-04-20] MEDS: BUDESONIDE INH.SOLN 0.5mg/2ml NEB AEROSOL SCH ×2 (08:30→19:19)
[2018-04-20] MEDS: ALBUTEROL/IPRATROPIUM 2.5mg-0.5mg/3ml NEB AEROSOL SCH ×4 (08:30→19:19)
[2018-04-20] MEDS ORDERED: VANCOMYCIN - PHARMACY CONSULT MC ONE (08:33)
[2018-04-20] MEDS ORDERED: POLYETHYL GLYCOL 3350 17gm PACKET PO PRN (08:40)
--- NOTE | 2018-04-20 09:22 | Pharmacy Consult-Antibiotics ---
Pharmacy Consult-Vancomycin - Laboratory Information WBC 5.8 T/MM3 (4.5-11.0) 04/20/18 04:37 BUN 25.0 MG/DL (7-17) H 04/20/18 04:37 Creatinine 0.9 mg/dL (0.7-1.2) 04/20/18 04:37 Procalcitonin < 0.05 NG/ML 04/20/18 04:37 VANCOMYCIN THERAPY: Dx: CAP with severe sepsis, Exacerb. of COPD Renal fx is stable. Will give VANCOMYCIN 1500mg LOADING DOSE, then VANCOMYCIN 1250mg IV q12hrs. Trough ordered for tomorrow am prior to dose. Target Trough = 15-20 mcg/ml Thank you.
[2018-04-20] MEDS: CEFTRIAXONE 1 G in NS 100 ML IV SCH (09:57)
[2018-04-20] MEDS: APIXABAN 5 MG TABLET PO SCH (09:57)
[2018-04-20] MEDS: FUROSEMIDE 20 MG TABLET PO PRN (09:57)
[2018-04-20] MEDS: FLECAINIDE 50 MG TABLET PO SCH ×2 (09:58→20:44)
[2018-04-20] MEDS: OMEPRAZOLE 20 MG CAPSULE PO SCH ×2 (09:58→20:44)
[2018-04-20] MEDS: LEVOFLOXACIN PB 750 MG/150 ML BAG IV SCH (09:58)
[2018-04-20] MEDS ORDERED: PredniSONE 20 MG TABLET PO SCH (12:00)
[2018-04-20] MEDS: BENZONATATE 100 MG CAPSULE PO PRN ×2 (13:05→21:52)
[2018-04-20] MEDS: NYSTATIN 500,000 units/5 ml ORAL LIQUID PO SCH ×2 (17:09→20:45)
--- NOTE | 2018-04-20 17:47 | Progress Note ---
- Date 04/20/18 Subjective: Patient resting in bed at the time of interview. Patient had lactic acid of 4.0 last evening, repeat lactic acid this morning 3.7. Blood cultures growing Staphylococcus aureus with concern for MRSA. Patient has been placed in the contact and droplet precautions. Concern for right-sided PowerPort (which was placed on 03/18/[address] Wong) causing bacteremia/sepsis. Case discussed with general surgeon on-call, Dr. Schneider to remove port. Also, repeat portable chest x-ray requested, official report awaited however concern for developing left lung base infiltrate in addition to right lung base atelectasis/ infiltrate. Antibiotics switched to IV vancomycin as per pharmacy protocol. Legionella urine antigen, streptococcus pneumonia antigen test results negative. Objective Vital signs: Temperature 98.3 F 04/20/18 17:07 Pulse Rate 84 04/20/18 17:07 Respiratory Rate 24 04/20/18 17:07 Blood Pressure 160/68 H 04/20/18 17:07 Pulse Oximetry 92 04/20/18 17:11 Height/Weight/BMI: Height 1.57 m Weight 86.5 kg Body Mass Index 34.1 - Additional findings Additional findings: General: Alert, awake, oriented 3. Not in acute distress. Head: Pupils equal, round, reactive to light and accommodation. Extraocular movements intact. Neck: No elevation in JVP. No pharyngeal erythema noted. Chest: The patient does not use accessory muscles for breathing. Lungs: Diminished Breath sounds on auscultation bilateral lung mott. Occasional wheezing on both sides. Crepitations heard bilateral lung bases. CVS: S1, S2 heard on auscultation. Normal rate and rhythm. No murmur, no S3/S4 gallops. Abdomen: Soft, nontender, no distention. Bowel sounds appreciated on auscultation. : No flank tenderness, no suprapubic distention or tenderness. Skin: No rashes, no induration, no erythema. Capillary refill less than 4 seconds. Extremities: Trace pedal edema bilateral lower extremities. No calf tenderness bilaterally. Palpable dorsalis pedis and posterior tibial pulses bilateral lower extremities. Results - Labs CBC & Chem 7: 04/20/18 04:37 04/20/18 04:37 Microbiology Results: Microbiology 04/20/18 15:33 Sputum, Expectorated Gram Stain - Final 04/20/18 15:33 Sputum, Expectorated Sputum Culture - Preliminary Culture Initiated - Results Pending 04/19/18 06:36 Peripheral/Iv Start Gram Stain - Final 04/19/18 06:36 Peripheral/Iv Start Blood Culture - Preliminary Coag negative Staphylococcus 04/19/18 06:41 Peripheral/Iv Start Blood Culture - Preliminary No Growth After 1 Day 04/19/18 10:01 Urine Streptococcus pneumoniae Antigen (M - Final 04/19/18 10:01 Urine Legionella Urinary Antigen - Final Assessment and Plan (1) COPD exacerbation Current visit: Yes Status: Acute Assessment and Plan: Assessment Severe sepsis with Staphylococcus bacteria, concern for port/catheter related infection. COPD exacerbation Community-acquired pneumonia. Hypoxic respiratory insufficiency. Baseline oxygen use is 2 L at night. History of A. fib, anticoagulated on Eliquis. In NSR at time of admission. Moderate pulmonary hypertension. Dyslipidemia. Hypertension. Osteoarthritis. Anxiety. Obesity, BMI 34.1 Plan Severe sepsis with Staphylococcus bacteria, concern for port/catheter related infection -IV vancomycin as per pharmacy dosing. -Cautious IV fluids at 40 mL per hour. -Patient placed under contact, droplet precautions. -Case discussed with infectious disease doctor masonry supervisor at [facility] , Dr. Emery. Recommendation to remove port and continue antibiotic regimen. -Echocardiogram ordered next available -General surgery on-call, Dr. Schneider consulted to remove port. Tentative plan to remove port tomorrow morning. -Patient placed nothing by mouth after midnight. We will hold eliquis dose this evening and provide subcutaneous heparin 5000 units 1 instead. COPD with exacerbation -In view of sepsis, prednisone discontinued. -DuoNeb treatments every 6 hours, Pulmicort twice a day. -Acapella -Wean oxygen as tolerated. Patient currently on 3 L supplemental oxygen via nasal cannula. -Incentive spirometry to be used every hour as needed. -She's seen Dr. Castanon in the past. Community-acquired pneumonia with severe sepsis -We'll continue IV Rocephin and doxycycline to cover for both pneumonia and COPD exacerbation. -Blood culture growing Staphylococcus, complete sensitivity results elevated -Sputum culture results elevated, urine antigens for Legionella and strep pneumoniae negative -Repeat lactate 3.7 this morning, repeat level 2.9. -She has not been hypotensive. Fluid overload -BNP 1360 when compared to 356 yesterday. -IV Lasix 40 mg twice a day initiated. History of A. fib -Telemetry -Continue Eliquis, Flecainide -Jewelry Dipper: Dr. Lind. Advanced directives -Completed: She has DPOA and living will. -Code status: DNR. DVT Prophylaxis: Eliquis - Time spent with patient Time with patient PN: 50 minutes - Physician Narrative Narrative: Date: 04/20/18 Time: 1742 Hospital Course Summary Disclaimer: The visit summary below is not to be considered part of the above Progress Note. Hospital Course: 04/19/18 Admit inpatient status under the hospitalist service. PCP: Dr. Santiago. COPD with exacerbation -She received IV Solu-Medrol in the ER. Will continue with prednisone 60 mg daily. -DuoNeb treatments every 6 hours, Pulmicort twice a day. -Acapella -Wean oxygen as able. Encourage ambulation -She's seen Dr. Castanon in the past. Community-acquired pneumonia with severe sepsis -She received Levaquin in the ER, but since she is on flecainide will change antibiotics to Rocephin and doxycycline to cover for both pneumonia and COPD exacerbation. -Sputum culture, urine antigens for Legionella and strep pneumoniae -Repeat lactate. Check pro calcitonin -She has not been hypotensive. History of A. fib -Telemetry -Continue Eliquis Flecainide -Jewelry Dipper: Dr. Lind. Advanced directives -Completed: She has DPOA and living will. -Code status: DNR. 04/20/2018 Severe sepsis with Staphylococcus bacteria, concern for port/catheter related infection -IV vancomycin as per pharmacy dosing. -Patient placed under contact, droplet precautions. -Case discussed with infectious disease doctor masonry supervisor at [facility] , Dr. Emery. Recommendation to remove port and continue antibiotic regimen. -Echocardiogram ordered next available -General surgery on-call, Dr. Schneider consulted to remove port. Tentative plan to remove port tomorrow morning. -Patient placed nothing by mouth after midnight. We will hold eliquis dose this evening and provide subcutaneous heparin 5000 units 1 instead. COPD with exacerbation -In view of sepsis, prednisone discontinued. -DuoNeb treatments every 6 hours, Pulmicort twice a day. -Acapella -Wean oxygen as tolerated. Patient currently on 3 L supplemental oxygen via nasal cannula. -Incentive spirometry to be used every hour as needed. -She's seen Dr. Castanon in the past. Community-acquired pneumonia with severe sepsis -We'll continue IV Rocephin and doxycycline to cover for both pneumonia and COPD exacerbation. -Blood culture growing Staphylococcus, complete sensitivity results elevated -Sputum culture results elevated, urine antigens for Legionella and strep pneumoniae negative -Repeat lactate 3.7 this morning, repeat level 2.9. -She has not been hypotensive. Fluid overload -BNP 1360 when compared to 356 yesterday. -Cautious IV fluids normal saline at 40 mL per hour. History of A. fib -Telemetry -Continue Kana Leone -Jewelry Dipper: Dr. Lind. Advanced directives -Completed: She has DPOA and living will. -Code status: DNR.
[2018-04-20] MEDS ORDERED: NS 1,000 ML IV SCH (18:00)
--- NOTE | 2018-04-20 18:40 | Consultation ---
DATE OF CONSULTATION 04/20/2018 HISTORY OF PRESENT ILLNESS This patient is 77 years old. This patient did undergo insertion of a PowerPort Vascular Access Device on 03/18/[address] Meza for monthly IVIG therapy. The patient did come to [facility] Emergency Room on 04/19/2018 with a one-week history of progressive dyspnea and cough. The patient was having worsening dyspnea. The patient did undergo a chest x-ray at the time of evaluation in the emergency room which showed right lower lobe pneumonia. The patient was started on antibiotic treatment. The patient was admitted to [facility] from the emergency room on 04/19/2018. The patient is known to have an IgG deficiency. The patient was thought to have COPD exacerbation and community-acquired pneumonia. The patient was thought to have sepsis based on a lactate of 2.8 and tachycardia and tachypnea. The patient does have severe baseline COPD with oxygen use at 2 liters per minute by nasal cannula at night. Blood cultures were performed at the emergency room at the time the patient was admitted. Antibiotic coverage with Rocephin and doxycycline was started at admission. The serum lactate later increased to 4.1. The patient did have a repeat lactic acid of 3.7 on the morning of 04/20/2018. Blood cultures on specimens drawn at the time of admission to the hospital were now growing out Staphylococcus aureus with concern that the patient might have MRSA. The patient was placed in contact and droplet precautions. Dr. Stanley did discuss the case with the on-call Infectious Disease physician at [facility]. This physician did recommend the patient undergo removal of the PowerPort Vascular Access Device. There was concern that the PowerPort Vascular Access Device might be the source for the Staphylococcus aureus bacteremia. The Infectious Disease specialist also recommended that the intravenous antibiotics be continued. The warehouse operations manager for this patient is Dr. Lind. The patient does have a history of atrial fibrillation. The patient is anticoagulated with Eliquis. PHYSICAL EXAMINATION VITAL SIGNS: Temperature is 98.3 degrees Fahrenheit oral. Pulse is 84. Respiratory rate is 24. Blood pressure is 160/68. Oxygen saturation is 95% on oxygen at 4 liters per minute by nasal cannula. CHEST: The patient does have a PowerPort Vascular Access Device in place at the right anterior chest. Skin overlying the port looks good. There is no redness at this area. A catheter for the port can be seen going from the port superiorly up to the right internal jugular vein. LABORATORY DATA White blood cell count is 5800 on 04/20/2018. Hemoglobin is 10.9. Hematocrit is 34.1. Serum sodium is 140. Serum potassium is 4.1. Plasma lactate was 3.7 at 0903 hours on 04/20/2018. Plasma lactate was 2.9 at 1324 hours on 2017. IMPRESSION 1. Severe sepsis with Staphylococcus aureus bacteremia. 2. Chronic obstructive pulmonary disease exacerbation. 3. Community-acquired pneumonia. 4. Hypoxic respiratory insufficiency. 5. History of atrial fibrillation. 6. Anticoagulation with Eliquis. 7. IgG deficiency. RECOMMENDATION Removal of PowerPort Vascular Access Device. PATIENT EDUCATION I did inform the patient and her daughter of the nature of the operation for removal of the PowerPort Vascular Access Device. The operation was described to them [id number]. Anesthesia for the procedure was discussed. Expected benefits of the procedure were discussed. Alternatives were discussed. Potential risks and complications were discussed including bleeding and infection and wound-healing complications. The increased risk of bleeding because of the fact that the patient is anticoagulated with Eliquis was discussed with the patient. Questions were solicited from the patient and her daughter. All of their questions were answered. The patient does wish to proceed. PLAN 1. Hold Eliquis for the rest of today. 2. Removal of PowerPort Vascular Access Device tomorrow. MTDD
[2018-04-20] MEDS: GABAPENTIN 600 MG TABLET PO SCH (20:44)
[2018-04-20] MEDS ORDERED: HEPARIN SUB-Q 5,000units/0.5ml INJECTION SQ ONE (21:00)
[2018-04-20] MEDS: LORazepam 0.5 MG TABLET PO PRN (21:51)
[2018-04-20] MEDS: FUROSEMIDE 40 MG/4 ML INJECTION IVP SCH (21:51)
[2018-04-21] MEDS: ACETAMINOPHEN 500 MG TABLET PO SCH (06:53)
[2018-04-21] MEDS: ALBUTEROL/IPRATROPIUM 2.5mg-0.5mg/3ml NEB AEROSOL SCH ×4 (07:43→19:01)
[2018-04-21] MEDS: BUDESONIDE INH.SOLN 0.5mg/2ml NEB AEROSOL SCH ×2 (07:43→19:01)
[2018-04-21] MEDS: OMEPRAZOLE 20 MG CAPSULE PO SCH ×3 (08:29→21:21)
[2018-04-21] MEDS: NYSTATIN 500,000 units/5 ml ORAL LIQUID PO SCH ×4 (08:29→21:24)
[2018-04-21] MEDS: CEFTRIAXONE 1 G in NS 100 ML IV SCH (08:33)
--- NOTE | 2018-04-21 09:02 | Progress Note ---
- Date 04/21/18 Subjective: Delma's biggest complaint is her cough. She denies any pleuritic pain from the cough. She is more short of breath today as well and is demonstrating mild conversational dyspnea. She is NPO for port removal scheduled for this morning. She denies fever or sweats. She denies abd pain or n/v. She denies feeling weak/ dizzy. Objective Vital signs: Temperature 96.4 F L 04/21/18 07:27 Pulse Rate 74 04/21/18 07:27 Respiratory Rate 24 04/21/18 07:44 Blood Pressure 157/68 H 04/21/18 07:27 Pulse Oximetry 92 04/21/18 07:44 Height/Weight/BMI: Height 1.57 m Weight 86.6 kg Body Mass Index 34.1 - Constitutional Present: mild distress, well nourished, well developed - Routine HEENT Exam Head: Present: normocephalic Eye: Present: PERRL. Absent: conjunctival icterus, scleral injection ENT: Present: mucous membranes moist - Routine Respiratory Exam Present: dyspnea (conversational), decreased breath sounds, wheezes - Routine Cardiovascular Exam Present: RRR, S1, S2 - Routine Abdominal Exam Present: soft, normoactive bowel sounds, non distended, non tender - Routine Extremities Exam Present: edema (trace BLE) - Routine Skin Exam Present: intact, dry, warm - Routine Neurological Exam Present: alert, oriented X3, CN II-XII intact, normal speech - Routine Psychiatric Exam Present: normal affect, normal thought process, cooperative Results - Labs CBC & Chem 7: 04/21/18 03:56 04/21/18 08:12 Microbiology Results: Microbiology 04/19/18 06:41 Peripheral/Iv Start Blood Culture - Preliminary No Growth After 2 Days 04/20/18 15:33 Sputum, Expectorated Gram Stain - Final 04/20/18 15:33 Sputum, Expectorated Sputum Culture - Preliminary Culture Initiated - Results Pending 04/19/18 06:36 Peripheral/Iv Start Gram Stain - Final 04/19/18 06:36 Peripheral/Iv Start Blood Culture - Preliminary Coag negative Staphylococcus 04/19/18 10:01 Urine Streptococcus pneumoniae Antigen (M - Final 04/19/18 10:01 Urine Legionella Urinary Antigen - Final Assessment and Plan (1) COPD exacerbation Current visit: Yes Status: Acute Assessment and Plan: Assessment Severe sepsis with progression to septic shock on 04/19/18 d/t lactate >4; with ADMINISTRATIVE MEDICAL DIRECTOR, concern for port/catheter related infection. COPD exacerbation Community-acquired pneumonia. Hypoxic respiratory insufficiency. Baseline oxygen use is 2 L at night. Fluid overload History of Juan Antonio lozano, anticoagulated on Eliquis. In NSR at time of admission. Moderate pulmonary hypertension. Dyslipidemia. Hypertension. Osteoarthritis. Anxiety. Obesity, BMI 34.1 Plan Severe sepsis with ADMINISTRATIVE MEDICAL DIRECTOR, concern for port/catheter related infection -IV vancomycin as per pharmacy dosing. -DC IVF d/t increased wheezing this morning. -Place consult for Dr. Lindsay tomorrow am -Echocardiogram pending -Dr. Schneider plans to remove port today. -Resume Eliquis post-procedure Community-acquired pneumonia with severe sepsis/shock -We'll continue IV Rocephin and doxycycline to cover for both pneumonia and COPD exacerbation. -Sputum culture results growing GPC, GPR, and GNR, urine antigens for Legionella and strep pneumoniae negative COPD with exacerbation -Consider resuming steroids if wheezing does not improve. -DuoNeb treatments every 6 hours, Pulmicort twice a day. -Acapella, IS. -Wean oxygen as tolerated. Still on 3 L supplemental oxygen via nasal cannula. Fluid overload -BNP decreasing. -Continue IV Lasix 40 mg twice a day -Renal function stable. DVT Prophylaxis: Eliquis Resuscitation Status: Do Not Resuscitate - Physician Narrative Physician: Cris Stanley Narrative: Date: 04/21/18 Time: 0858 I have independently interviewed and examined patient. Patient chart reviewed. Case discussed with my ORGANIC SECTION TECHNICAL LEAD. Care plan developed with my supervision, agree with above. Patient resting in bed at the time of evaluation. Patient's daughter present at bedside. Status post port removal procedure performed earlier this morning by Dr. Schnedier. Subjectively, states shortness of breath improving. Continues to have cough. Discussed with patient about culture report showing coagulase- negative bacteria. Contact/droplet precautions discontinued. Patient has BNP of 1070 today. WBC count 9200. Physical exam: AAO x 3, in mild respiratory distress PERRLA, EOMI S1 and S2 heard on auscultation, no murmurs Crackles on auscultation bilateral lung bases with occasional wheezing. Abdomen soft, nontender, positive bowel sounds Trace edema bilateral lower extremities. Assessment: Severe sepsis with history of immunocompromised status and blood culture 1/2 growing coagulase-negative staphylococci. Exacerbation of COPD, community-acquired pneumonia, paroxysmal atrial fibrillation, moderate pulmonary hypertension with concern for diastolic congestive heart failure, hypertension, hyperlipidemia, osteoarthritis, anxiety. Plan: Patient status post port removal procedure performed by Dr. Schneider today. Catheter tip has been sent for culture and sensitivity. Contact/droplet precautions discontinued. Echocardiogram ordered for tomorrow. Patient's infectious disease doctor, Dr. Lindsay consulted for evaluation tomorrow. Continue IV vancomycin, IV Rocephin, IV doxycycline. IV fluids discontinued. Continue Lasix 40 mg IV twice a day. We'll monitor intake and output. Continue breathing treatments and RT on board. Hospital Course Summary Disclaimer: The visit summary below is not to be considered part of the above Progress Note. Hospital Course: 04/19/18 Admit inpatient status under the hospitalist service. PCP: Dr. Santiago. COPD with exacerbation -She received IV Solu-Medrol in the ER. Will continue with prednisone 60 mg daily. -DuoNeb treatments every 6 hours, Pulmicort twice a day. -Acapella -Wean oxygen as able. Encourage ambulation -She's seen Dr. Castanon in the past. Community-acquired pneumonia with severe sepsis -She received Levaquin in the ER, but since she is on flecainide will change antibiotics to Rocephin and doxycycline to cover for both pneumonia and COPD exacerbation. -Sputum culture, urine antigens for Legionella and strep pneumoniae -Repeat lactate. Check pro calcitonin -She has not been hypotensive. History of A. fib -Telemetry -Continue Eliquis, Flecainide -Epic Stork Specialists: Dr. Lind. Advanced directives -Completed: She has DPOA and living will. -Code status: DNR. 04/20/2018 Severe sepsis with Staphylococcus bacteria, concern for port/catheter related infection -IV vancomycin as per pharmacy dosing. -Patient placed under contact, droplet precautions. -Case discussed with infectious disease doctor guest relations associate at [facility] , Dr. Emery. Recommendation to remove port and continue antibiotic regimen. -Echocardiogram ordered next available -General surgery on-call, Dr. Schneider consulted to remove port. Tentative plan to remove port tomorrow morning. -Patient placed nothing by mouth after midnight. We will hold eliquis dose this evening and provide subcutaneous heparin 5000 units 1 instead. COPD with exacerbation -In view of sepsis, prednisone discontinued. -Wean oxygen as tolerated. Patient currently on 3 L supplemental oxygen via nasal cannula. Community-acquired pneumonia with severe sepsis -We'll continue IV Rocephin and doxycycline to cover for both pneumonia and COPD exacerbation. -Blood culture growing Staphylococcus, complete sensitivity results elevated -Sputum culture results elevated, urine antigens for Legionella and strep pneumoniae negative -Repeat lactate 3.7 this morning, repeat level 2.9. -She has not been hypotensive. Fluid overload -BNP 1360 when compared to 356 yesterday. -Cautious IV fluids normal saline at 40 mL per hour. 04/21/18 Severe sepsis with ADMINISTRATIVE MEDICAL DIRECTOR, concern for port/catheter related infection -IV vancomycin as per pharmacy dosing. -DC IVF d/t increased wheezing this morning. -Place consult for Dr. Lindsay tomorrow am -Echocardiogram pending -Dr. Schneider plans to remove port today. -Resume Eliquis post-procedure Community-acquired pneumonia with severe sepsis/shock -We'll continue IV Rocephin and doxycycline to cover for both pneumonia and COPD exacerbation. -Sputum culture results growing GPC, GPR, and GNR, urine antigens for Legionella and strep pneumoniae negative Fluid overload -BNP decreasing.
[2018-04-21] MEDS: FLECAINIDE 50 MG TABLET PO SCH ×2 (09:13→21:21)
[2018-04-21] MEDS: FUROSEMIDE 40 MG/4 ML INJECTION IVP SCH ×2 (09:13→21:22)
[2018-04-21] MEDS: SALINE FLUSH 10ml SYRINGE IV PRN (09:13)
[2018-04-21] MEDS: APIXABAN 5 MG TABLET PO SCH ×2 (09:14→21:21)
[2018-04-21] MEDS ORDERED: MENTHOL COUGH DROPS (RICOLA) MM PRN (09:22)
--- NOTE | 2018-04-21 10:00 | Pharmacy Consult-Antibiotics ---
Pharmacy Consult-Vancomycin - Laboratory Information WBC 9.2 T/MM3 (4.5-11.0) D 04/21/18 03:56 BUN 26.0 MG/DL (7-17) H 04/21/18 03:56 Creatinine 1.0 mg/dL (0.7-1.2) 04/21/18 08:12 Procalcitonin < 0.05 NG/ML 04/20/18 04:37 Vancomycin Trough 20.18 ug/mL (15-20) H 04/21/18 08:12 VANCOMYCIN THERAPY: DAY TWO 77yo with CAP with severe sepsis / shock. Trough slightly above therapeutic level. Renal fx is stable. AM dose was held until results. Will adjust regimen to VANCOMYCIN 750 MG IV Q 12 HOURS starting with this am dose. This gives calculated peak/trough of 36/16.5 mcg/ml respectively. thank you.
--- NOTE | 2018-04-21 10:21 | Anesthesia Preoperative Report ---
Anesthesia Preoperative Record - Date and Time Date: 04/21/18 Preoperative Diagnosis: COPD exacerbation Proposed Procedure: Removal of [id number] NPO Since Date: 04/21/18 NPO Since Time: 00:00 Allergies/Adverse Reactions: Allergies Allergy/AdvReac Type Severity Reaction Status Date / Time cefaclor AdvReac Intermediate "loss of Verified 03/18/18 08:29 muscle control" - Vital Signs Vital Signs: Temperature 96.4 F L 04/21/18 07:27 Pulse Rate 74 04/21/18 07:27 Respiratory Rate 24 04/21/18 07:44 Blood Pressure 157/68 H 04/21/18 07:27 Pulse Oximetry 92 04/21/18 07:44 Height and Weight: Height 5 ft 2 in Weight 86.6 kg Body Mass Index 34.1 - Medications Inpatient Medications: Current Medications Acetaminophen (Tylenol) 325 - 650 mg PO Q5H PRN PRN Reason: Discomfort Last Admin: 04/20/18 06:31 Dose: 650 mg Hydrocodone Bitart/Acetaminophen ([place] 5/325) 1 - 2 tab PO Q6HR PRN PRN Reason: Pain Albuterol/Ipratropium (Duoneb) 3 ml AEROSOL RTQID [facility] Last Admin: 04/21/18 07:43 Dose: 3 ml Albuterol/Ipratropium (Duoneb) 3 ml AEROSOL RTQID PRN Last Admin: 04/20/18 23:49 Dose: 3 ml Allopurinol (Zyloprim) 100 mg PO PRN PRN PRN Reason: Gout pain Apixaban (Eliquis) 5 mg PO BID [facility] Last Admin: 04/21/18 09:14 Dose: Not Given Benzonatate (Tessalon Perles) 100 mg PO TID PRN PRN Reason: Cough Last Admin: 04/20/18 21:52 Dose: 100 mg Budesonide (Pulmicort Inhalation) 0.5 mg AEROSOL RTBID [facility] Last Admin: 04/21/18 07:43 Dose: 0.5 mg Diltiazem HCl (Cardizem Cd 180 Mg) 180 mg PO DAILY [facility] Last Admin: 04/21/18 09:13 Dose: 180 mg Flecainide Acetate (Tambocor) 50 mg PO BID [facility] Last Admin: 04/21/18 09:13 Dose: 50 mg Furosemide (Lasix 40 Mg/4 Ml) 40 mg IVP Q12HR [facility] Last Admin: 04/21/18 09:13 Dose: 40 mg Gabapentin (Neurontin) 600 mg PO HS [facility] Last Admin: 04/20/18 20:44 Dose: 600 mg Guaifenesin/Dextromethorphan (Mucinex Dm) 1 tab PO BID PRN PRN Reason: Cough /Congestion Doxycycline Hyclate 100 mg/ (Sodium Chloride) 250 mls @ 250 mls/hr IV Q12H [facility] Last Infusion: 04/21/18 00:40 Dose: Infused Ceftriaxone Sodium 1 g/ Sodium (Chloride) 100 mls @ 200 mls/hr IV DAILY [facility] Last Admin: 04/21/18 08:33 Dose: 200 mls/hr Vancomycin HCl 750 mg/ Sodium (Chloride) 250 mls @ 250 mls/hr IV Q12HR [facility] Last Admin: 04/21/18 09:56 Dose: 250 mls/hr Lorazepam (Ativan Inj) 0.5 mg IVP Q4H PRN Last Admin: 04/20/18 01:08 Dose: 0.5 mg Lorazepam (Ativan) 0.5 mg PO Q4H PRN Last Admin: 04/20/18 21:51 Dose: 0.5 mg Menthol (Ricola Sf) 1 lozenge MM PRN PRN PRN Reason: Cough Nystatin (Mycostatin) 5 ml PO QID [facility] Last Admin: 04/21/18 08:29 Dose: Not Given Nystatin (Mycostatin) 1 applic TP TID [facility] Last Admin: 04/21/18 09:14 Dose: Not Given Omeprazole (Prilosec) 20 mg PO BID [facility] Last Admin: 04/21/18 08:29 Dose: Not Given Ondansetron HCl (Zofran) 4 mg IVP Q6H PRN PRN Reason: Nausea &/or vomiting Polyethylene Glycol (Miralax) 17 gm PO DAILY PRN PRN Reason: Constipation Last Admin: 04/20/18 09:57 Dose: 17 gm Sodium Chloride (Iv Flush) 10 - 80 ml IV PRN PRN PRN Reason: Flushing Last Admin: 04/21/18 09:13 Dose: 10 ml Home Medications: Home Medications Medication Instructions Recorded Confirmed Type Apixaban [Eliquis] 5 mg PO BID #60 tab 07/25/17 04/19/18 Rx Flecainide [Tambocor] 50 mg PO BID #60 tab 07/25/17 04/19/18 Rx Prilosec (Omeprazole) 20 mg 20 mg PO BID 90 Days #180 cap 09/18/17 04/19/18 History capsule,delayed release Allopurinol [Zyloprim] 100 mg PO PRN PRN 11/26/17 04/19/18 History Gabapentin [Neurontin] 600 mg PO HS 03/15/18 04/19/18 History Acetaminophen [Tylenol Arthritis] 650 mg PO PRN PRN 03/18/18 04/19/18 History Albuterol HFA Inhaler [Ventolin 1 puff ORAL INH PRN PRN 03/18/18 04/19/18 History Hfa 90 mcg/actuation] Hydrocodone/APAP 5/325 [[place] 1 - 2 tab PO Q6HR PRN #10 tab 03/18/18 04/19/18 Rx 5/325] Ibuprofen [Motrin] 400 - 800 mg PO Q6H PRN tab 03/18/18 04/19/18 Rx Furosemide [Lasix] 20 mg PO PRN PRN 04/19/18 04/19/18 History dilTIAZem HCl [Cartia Xt] 180 mg PO DAILY 04/19/18 04/19/18 History Is Patient on Beta Lee?: No - Medical History Respiratory: Reports: Asthma, Bronchitis, Chronic Obstructive Pulmonary Disease (COPD), Pneumonia, Sleep Apnea (copd/chf) Cardiovascular: Reports: Arrhythmia (A FIB), Congestive Heart Failure (per H&P) , Hypertension Gastrointestional: Reports: Gastroesophageal Reflux Disease (well controlled with meds), Ulcer Neuro/Musculoskeletal: Reports: Back Problems (chronic back aches) Other History: Reports: Anesthesia Reactions (airway problems) - Surgical History HEENT Surgeries: Reports: Eye Surgery (cataract removal OU) Respiratory Surgery/Treatments: Reports: Oxygen Administration (PRN during day and uses 2L/NC at HS) GI Surgery/Treatments: Reports: Appendectomy, Cholecystectomy Musculoskeletal Surgery/Tx: Reports: Knee Arthroscopy (left knee), Total Knee Replacement (left knee), Other (bunions removed bilat feet) Reproductive Surgery/Treatment: Reports: Hysterectomy Anesthesia Reactions: Other (poor lung function. physician recommends minimal to no anesthesia) Hx Family Anesthesia Reaction: No History of Motion Sickness: No - Social History Smoking Status: Former smoker Packs per day: 1 Pack-years: 30 Substance Use Type: does not use Alcohol Intake Frequency: holidays/special occasions only - Pertinent Findings Laboratory: CBC and BMP 04/21/18 03:56 04/21/18 08:12 BMP 04/21/18 04/21/18 03:56 08:12 Sodium 141 Potassium 3.9 Chloride 104 Carbon Dioxide 26 BUN 26.0 H Creatinine 1.0 1.0 Glucose 89 Calcium 8.9 Liver Function 04/21/18 Range/Units 03:56 Total Bilirubin 0.30 (0.20-1.30) MG/DL AST 38 H D (14-36) U/L ALT 18 (1-35) U/L Alkaline Phosphatase 77 (38-126) U/L Albumin 3.7 (3.5-5.0) g/dL EKG: Sinus Rhythm - Physical Exam Respiratory Exam: Present: wheezing Cardiovascular Exam: Present: irregularly irregular, no murmur - Airway Assessment Mallampati Score: III TMD: 2 Fingerbreadths Neck Extension: fair Teeth: upper dentures, lower dentures Overall Assessment: may be difficult mask vent, may be difficult intubation - ASA ASA Score: 4 - Plan Anesthesia: General TIVA (vs MAC), MAC - Discussion Discussion: Discussed risks/options/alternatives of anesthesia and questions answered. Patient consents. Nursing pain assessment noted. Present for Discussion: family member Attestation Statement: Prior to the delivery of any anesthetic medication, I examined the patient, developed the plan, obtained the patient's consent and discussed the risk and benefits of the procedure with the patient/guardian. - Additional Information Seen by Anesthesia: Yes
[2018-04-21] MEDS ORDERED: FentaNYL 100 MCG/2 ML INJECTION ONE (10:27)
[2018-04-21] MEDS ORDERED: MIDAZOLAM 2mg/2ml INJECTION ONE (10:27)
[2018-04-21] MEDS ORDERED: KETAMINE 500 MG/10 ML INJECTION ONE (10:27)
[2018-04-21] MEDS ORDERED: BUPIVACAINE 0.5% (5mg/ml) PF 30ml INJ SDV ONE (10:30)
[2018-04-21] MEDS ORDERED: BUPIVACAINE 0.5% (5mg/ml) PF 30ml INJ SDV ID ONE (11:15)
--- NOTE | 2018-04-21 11:33 | General Surgery Procedure Note ---
Date of Procedure: 04/21/18 Surgeon: Jennie Postoperative Diagnosis: Severe sepsis with Staphyloccus aureus bacteremia Procedure: Removal of Power Port vascular access device Estimated Blood Loss: See Anesthesia Record.
--- NOTE | 2018-04-21 11:36 | XRay Report ---
Indication: dyspnea PROCEDURE: XR chest 1V: Encounter: Initial Comparison: April 19, 2018 Findings: Improving aeration of the chest. Prominent epicardial fat-pad. No new opacity. No pneumothorax or effusion. Heart size and mediastinal contours are stable. Pulmonary vascularity is normal. Right IJ port catheter in place. Impression: Improving appearance of the chest. .
--- NOTE | 2018-04-21 11:48 | Anesthesia Postoperative Note ---
- Date and Time Date: 04/21/18 Time: 11:48 - Status Patient Participated in Evaluation: Patient Participated in Person Vital Signs: Temperature 97.2 F 04/21/18 11:31 Pulse Rate 68 04/21/18 11:45 Respiratory Rate 16 04/21/18 11:45 Blood Pressure 140/62 H 04/21/18 11:45 Pulse Oximetry 94 04/21/18 11:45 Respiratory Function: Airway Patent Cardiovascular Function: Regular Pulse EKG: Sinus Rhythm Mental Status: Alert and Oriented Pain Intensity: 2 Hydration: IV Infusing Complications During Recover: None Apparent - Follow-Up Instructions Instructions: Per Surgeon
[2018-04-21] MEDS: LORazepam 0.5 MG TABLET PO PRN ×2 (12:44→21:22)
[2018-04-21] MEDS: DOXYCYCLINE 100 MG in NS 250ml 250 ML IV SCH ×2 (12:44→23:11)
[2018-04-21] MEDS: GUAIFENESIN/D-METHORPHAN 600mg/30mg TABLET PO PRN ×2 (12:44→21:21)
[2018-04-21] MEDS: ACETAMINOPHEN 325 MG TABLET PO PRN ×2 (15:03→21:39)
[2018-04-21] MEDS: GABAPENTIN 600 MG TABLET PO SCH (21:21)
[2018-04-21] MEDS: BENZONATATE 100 MG CAPSULE PO PRN (21:21)
[2018-04-21] MEDS: ALBUTEROL/IPRATROPIUM 2.5mg-0.5mg/3ml NEB AEROSOL PRN (23:25)
[2018-04-22] MEDS: LORazepam 0.5 MG TABLET PO PRN ×3 (03:29→20:41)
[2018-04-22] MEDS: GUAIFENESIN/D-METHORPHAN 600mg/30mg TABLET PO PRN ×2 (03:30→20:41)
[2018-04-22] MEDS: BENZONATATE 100 MG CAPSULE PO PRN ×2 (03:30→20:42)
[2018-04-22] MEDS: ALBUTEROL/IPRATROPIUM 2.5mg-0.5mg/3ml NEB AEROSOL PRN ×2 (03:46→23:56)
[2018-04-22] MEDS: BUDESONIDE INH.SOLN 0.5mg/2ml NEB AEROSOL SCH ×2 (07:37→20:00)
[2018-04-22] MEDS: ALBUTEROL/IPRATROPIUM 2.5mg-0.5mg/3ml NEB AEROSOL SCH ×4 (07:38→20:00)
--- NOTE | 2018-04-22 08:50 | Progress Note ---
- Date 04/22/18 Subjective: Delma is doing ok, she doesn't feel great but she doesn't feel like she's worsening. She doesn't feel particularly short of breath but would like to be weaned down on oxygen, as she's still on 3L. She plans on going on a few walks today. She continues to cough but reports that the cough medicines are helpful. Her thrush is improving. She denies n/v. She denies feeling weak or dizzy. Her left chest wall is sore from the port removal, as expected. Objective Vital signs: Temperature 96.3 F L 04/22/18 07:28 Pulse Rate 76 04/22/18 07:28 Respiratory Rate 22 04/22/18 07:38 Blood Pressure 189/79 H 04/22/18 07:28 Pulse Oximetry 92 04/22/18 07:38 Height/Weight/BMI: Height 1.57 m Weight 86.1 kg Body Mass Index 34.1 - Constitutional Present: no acute distress, well nourished, well developed - Routine HEENT Exam Head: Present: normocephalic Eye: Present: PERRL. Absent: conjunctival icterus, scleral injection ENT: Present: mucous membranes moist. Absent: oropharynx clear (minimal thrush) - Routine Respiratory Exam Present: decreased breath sounds Comments: bulky dressing to left anterior chest wall - Routine Cardiovascular Exam Present: RRR, S1, S2 - Routine Abdominal Exam Present: soft, normoactive bowel sounds, non distended, non tender - Routine Extremities Exam Present: edema (trace BLE) - Routine Skin Exam Present: intact, dry, warm - Routine Neurological Exam Present: alert, oriented X3, CN II-XII intact, moving all extremities, vision grossly intact, hearing grossly intact, normal speech. Absent: sensory deficit , motor deficit, altered mental status, facial asymmetry - Routine Psychiatric Exam Present: normal affect, normal thought process, cooperative Results - Labs CBC & Chem 7: 04/22/18 04:04 04/22/18 04:04 Microbiology Results: Microbiology 04/20/18 15:33 Sputum, Expectorated Gram Stain - Final 04/20/18 15:33 Sputum, Expectorated Sputum Culture - Preliminary Early growth 04/19/18 06:41 Peripheral/Iv Start Blood Culture - Preliminary No Growth After 3 Days 04/19/18 06:36 Peripheral/Iv Start Gram Stain - Final 04/19/18 06:36 Peripheral/Iv Start Blood Culture - Preliminary Coag negative Staphylococcus 04/19/18 10:01 Urine Streptococcus pneumoniae Antigen (M - Final 04/19/18 10:01 Urine Legionella Urinary Antigen - Final Assessment and Plan (1) COPD exacerbation Current visit: Yes Status: Acute Assessment and Plan: Assessment Severe sepsis with progression to septic shock on 04/19/18 d/t lactate >4; with BANK VAULT CUSTODIAN, concern for port/catheter related infection. Port removed 04/21/18. COPD exacerbation Community-acquired pneumonia. Hypoxic respiratory insufficiency. Baseline oxygen use is 2 L at night. Fluid overload History of A. fib, anticoagulated on Eliquis. In NSR at time of admission. Moderate pulmonary hypertension. Dyslipidemia. Hypertension. Osteoarthritis. Anxiety. Obesity, BMI 34.1 Plan Severe sepsis with BANK VAULT CUSTODIAN, concern for port/catheter related infection -IV vancomycin as per pharmacy dosing. -Dr. Lindsay consulted -Echocardiogram done this am; pending -s/p port removal 04/21/18 Community-acquired pneumonia with severe sepsis/shock -Continue IV Rocephin and doxycycline to cover for both pneumonia and COPD exacerbation. -Sputum culture results growing GPC, GPR, and GNR, urine antigens for Legionella and strep pneumoniae negative -repeat CXR today COPD with exacerbation -Wheezing improved; hold off on steroids. -DuoNeb treatments every 6 hours, Pulmicort twice a day. Acapella, IS. -Wean oxygen as tolerated. Still on 3 L supplemental oxygen via nasal cannula. Fluid overload -Weight decreasing; fluid up about 500 mL. -May be able to reduce IV Lasix dose - currently on 40 mg twice a day -Renal function stable. Noted hyperkalemia on grossly hemolyzed specimen this am. DVT Prophylaxis: Eliquis GI Prophylaxis: Omeprazole Resuscitation Status: Do Not Resuscitate - Physician Narrative Physician: Cris Stanley Narrative: Date: 04/22/18 Time: 0847 I have independently interviewed and examined patient. Patient chart reviewed. Case discussed with my FOOD COUNTER WORKER. Care plan developed with my supervision, agree with above. Patient is resting in bed at the time of interview. Patient's family present at bedside. Reports subjective symptoms of shortness of breath improving. Continues to have cough although states that Tessalon Perles medication assisting with symptoms of cough. Case discussed with patient's infectious disease doctor, Dr. Lindsay and as patient's final culture report demonstrated coag-negative staph in 1 out of 2 blood culture bottles, likely contaminant. Recommendations from Dr. Lindsay to keep patient's IV line in place at the time of discharge for IVIG as an outpatient. Also recommendation to discontinue IV vancomycin. Echocardiogram has been performed, results are awaited. We'll continue IV Rocephin, doxycycline for now. Repeat 2 view chest x-ray does not demonstrate acute process. Physical exam: AAO x 3, NAD PERRLA, EOMI S1 and S2 heard on auscultation, no murmurs Audible breath sounds auscultation bilaterally. Crackles appreciated bilateral lung bases. Occasional wheezing. Abdomen soft, nontender, positive bowel sounds Trace edema bilateral lower extremities. Assessment: Severe sepsis with history of immunocompromised status and blood culture 1/2 growing coagulase-negative staphylococci. CVID. Exacerbation of COPD , community-acquired pneumonia, paroxysmal atrial fibrillation, moderate pulmonary hypertension with concern for diastolic congestive heart failure, hypertension, hyperlipidemia, osteoarthritis, anxiety. Plan: Patient status post port removal procedure performed by Dr. Schneider 2017. Catheter tip has been sent for culture and sensitivity, results awaited. Echocardiogram has been performed, report awaited. Case discussed with Dr. Lindsay , recommendation to stop IV vancomycin and to keep patient's present midline IV in place for outpatient IVIG. We will continue nystatin swish and swallow and nystatin powder to be applied to local areas. Repeat chest x-ray today does not demonstrate any acute process. Continue Lasix 40 mg IV twice a day. We'll monitor intake and output. Continue breathing treatments and RT on board. Hospital Course Summary Disclaimer: The visit summary below is not to be considered part of the above Progress Note. Hospital Course: 04/19/18 Admit inpatient status under the hospitalist service. PCP: Dr. Santiago. COPD with exacerbation -She received IV Solu-Medrol in the ER. Will continue with prednisone 60 mg daily. -DuoNeb treatments every 6 hours, Pulmicort twice a day. -Acapella -Wean oxygen as able. Encourage ambulation -She's seen Dr. Castanon in the past. Community-acquired pneumonia with severe sepsis -She received Levaquin in the ER, but since she is on flecainide will change antibiotics to Rocephin and doxycycline to cover for both pneumonia and COPD exacerbation. -Sputum culture, urine antigens for Legionella and strep pneumoniae -Repeat lactate. Check pro calcitonin -She has not been hypotensive. History of A. fib -Telemetry -Continue Eliquis, Flecainide -Hogshead Mat Assembler: Dr. Lind. Advanced directives -Completed: She has DPOA and living will. -Code status: DNR. 04/20/2018 Severe sepsis with Staphylococcus bacteria, concern for port/catheter related infection -IV vancomycin as per pharmacy dosing. -Patient placed under contact, droplet precautions. -Case discussed with infectious disease doctor integration analyst at [facility] , Dr. Emery. Recommendation to remove port and continue antibiotic regimen. -Echocardiogram ordered next available -General surgery on-call, Dr. Schneider consulted to remove port. Tentative plan to remove port tomorrow morning. -Patient placed nothing by mouth after midnight. We will hold eliquis dose this evening and provide subcutaneous heparin 5000 units 1 instead. COPD with exacerbation -In view of sepsis, prednisone discontinued. -Wean oxygen as tolerated. Patient currently on 3 L supplemental oxygen via nasal cannula. Community-acquired pneumonia with severe sepsis -We'll continue IV Rocephin and doxycycline to cover for both pneumonia and COPD exacerbation. -Blood culture growing Staphylococcus, complete sensitivity results elevated -Sputum culture results elevated, urine antigens for Legionella and strep pneumoniae negative -Repeat lactate 3.7 this morning, repeat level 2.9. -She has not been hypotensive. Fluid overload -BNP 1360 when compared to 356 yesterday. -Cautious IV fluids normal saline at 40 mL per hour. 04/21/18 Severe sepsis with BANK VAULT CUSTODIAN, concern for port/catheter related infection -IV vancomycin as per pharmacy dosing. -DC IVF d/t increased wheezing this morning. -Dr. Schneider removed port today. -Resume Eliquis post-procedure Community-acquired pneumonia with severe sepsis/shock -We'll continue IV Rocephin and doxycycline to cover for both pneumonia and COPD exacerbation. -Sputum culture results growing GPC, GPR, and GNR, urine antigens for Legionella and strep pneumoniae negative Fluid overload -BNP decreasing. 04/22/18 Severe sepsis with BANK VAULT CUSTODIAN, concern for port/catheter related infection -IV vancomycin as per pharmacy dosing. -Dr. Lindsay consulted -Echocardiogram done this am; pending -s/p port removal 7/22/18 Community-acquired pneumonia with severe sepsis/shock -Continue IV Rocephin and doxycycline to cover for both pneumonia and COPD exacerbation. -repeat CXR today COPD with exacerbation -Wheezing improved; hold off on steroids. Fluid overload -Weight decreasing; fluid up about 500 mL. -May be able to reduce IV Lasix dose - currently on 40 mg twice a day -Renal function stable. Noted hyperkalemia on grossly hemolyzed specimen this am. Addendum entered and electronically signed by Caitie Gallardo APRN 04/22/18 10: 33: Code status clarified - pt wishes for limited code. She is agreeable to shocks and medications but does not want chest compressions or intubation.
[2018-04-22] MEDS: FUROSEMIDE 40 MG/4 ML INJECTION IVP SCH ×2 (09:42→20:41)
[2018-04-22] MEDS: APIXABAN 5 MG TABLET PO SCH ×2 (09:43→20:41)
[2018-04-22] MEDS: OMEPRAZOLE 20 MG CAPSULE PO SCH ×2 (09:43→20:41)
[2018-04-22] MEDS: ACETAMINOPHEN 325 MG TABLET PO PRN ×2 (09:43→20:52)
[2018-04-22] MEDS: FLECAINIDE 50 MG TABLET PO SCH ×2 (09:44→20:42)
[2018-04-22] MEDS: SALINE FLUSH 10ml SYRINGE IV PRN ×2 (09:44→13:12)
[2018-04-22] MEDS: CEFTRIAXONE 1 G in NS 100 ML IV SCH (09:44)
--- NOTE | 2018-04-22 09:49 | Operative Note ---
DATE OF OPERATION 04/21/2018 PREOPERATIVE DIAGNOSIS Severe sepsis with Staphylococcus aureus bacteremia. POSTOPERATIVE DIAGNOSIS Severe sepsis with Staphylococcus aureus bacteremia. OPERATION Removal of PowerPort vascular access device. SURGEON Varghese Schneider MD ANESTHESIA TIVA ASA CLASS 4 FINDINGS This patient did have a PowerPort vascular access device in place at the right infraclavicular area. The catheter for the vascular access device did enter the right internal jugular vein. DESCRIPTION OF OPERATION The patient was placed in Don's position on the operating table. The patient was premedicated with intravenous sedation medication administered by the nurse public safety director. The right side of the neck, right supraclavicular area and right infraclavicular area and right anterior chest were all prepped and draped in routine sterile fashion. Bupivacaine 0.5% without epinephrine was infiltrated into the skin and subcutaneous tissue at the old incision scar at the right infraclavicular area which had been used for insertion of the PowerPort vascular access device. An elliptical transversely oriented incision was made around the old skin incision scar. This incision was extended down to the subcutaneous tissue in wedge-shaped fashion to excise the old skin incision scar. The incision was extended down to the level of the catheter for the vascular access device. Additional bupivacaine was infiltrated into subcutaneous tissue all around the PowerPort vascular access device. The catheter was dissected out further and exposed at the level of the incision. The catheter then was pulled out of the internal jugular vein and pulled out of the tunnel going up to the internal jugular vein. The tip of the catheter was cut off with sterile scissors and the tip of the catheter was placed in a sterile specimen container to be submitted to the laboratory for catheter tip culture and sensitivity. The opening at the subcutaneous space where the catheter was removed was sewn closed with a 3-0 Vicryl [id number] type of stitch. The port was dissected out sharply and excised. Additional bupivacaine was infiltrated all around the port as it was dissected out to maintain patient comfort. The stitches which held the port in place were divided. The port was completely dissected free of surrounding tissue. The port was left attached to the remaining catheter. The port and catheter were removed from the patient. Hemostasis was achieved throughout the wound by coagulating bleeding points with the monopolar electrosurgery device. Satisfactory hemostasis was achieved. The subcutaneous tissue margins at the incision were reapproximated with a continuous simple [id number] stitch using 3-0 Vicryl suture. Skin margins at the incision were closed at the level of the incision with a continuous subcuticular stitch using 4-0 Vicryl suture. Benzoin and 1/4-inch wide Steri-Strips were applied to the incision. Sterile dressings were applied. The patient did continue to receive intravenous sedation medication administered by the nurse public safety director throughout the operation to maintain patient comfort. Additional bupivacaine was also infiltrated into tissue throughout the operation to maintain patient comfort. The patient did appear to tolerate the operation well. The patient was transferred from the operating room to the recovery room in satisfactory condition. KEISHA
--- NOTE | 2018-04-22 10:00 | XRay Report ---
Indication: f/u pneumonia PROCEDURE: XR chest 2V: Encounter: Initial Comparison: 04/20/2018 Findings: There is a discoid atelectasis and/or scarring in both lung bases. Heart size is normal. There is no focal opacity to suggest lobar pneumonia. No mediastinal or hilar adenopathy. No pleural effusion. There is mild tortuosity of the descending thoracic aorta. There is no significant degenerative disc disease of the thoracic spine. IMPRESSION: No acute process. .
--- NOTE | 2018-04-22 10:21 | Infectious Disease Consult ---
Infectious Disease Consult Date of Consultation: 04/22/18 Requesting Physician: Cris Stanley Reason for Consultation: antibiotic recs History of Present Illness: Ms. Marcum is a 77 y/o woman with a relatively recent diagnosis of CVID on IVIG therapy. I believe she's had about 2 infusions of IVIG as an outpatient. She is a "hard stick" and had a Port placed on 03/16/18. She was admitted here on 04/19 after she presented to the ED with dyspnea. She also reports coughing a lot but this is non-productive. She was noted to have lactic acidosis with a lactate of 4.1 on admission. Her PCT has been negative. Her WBC was normal, and she has not had documented fever. Blood cultures, one of two, drawn on admission , was positive for Staph. Initially this was reported as presumptive MRSA, but later it was changed to CoNS. Urine S. pneumo and Legionella antigens are negative. Sputum culture from 04/20 has "early growth" and the gram stain has mod GPRs, mod GPC in pairs, few GNRs, few neutrophils. She has been on 4L of O2 , and is now on 3L. She typically wears 2L of O2 only at night. Her initial CXR showed R basilar atelectasis or pneumonia. CXR 04/20 showed improvement. CXR today shows no acute process. She reports to me that she feels some improved , but is still short of breath and is wheezing. Medications Home Medications Medication Instructions Recorded Confirmed Type Apixaban [Eliquis] 5 mg PO BID #60 tab 07/25/17 04/19/18 Rx Flecainide [Tambocor] 50 mg PO BID #60 tab 07/25/17 04/19/18 Rx Prilosec (Omeprazole) 20 mg 20 mg PO BID 90 Days #180 cap 09/18/17 04/19/18 History capsule,delayed release Allopurinol [Zyloprim] 100 mg PO PRN PRN 11/26/17 04/19/18 History Gabapentin [Neurontin] 600 mg PO HS 03/15/18 04/19/18 History Acetaminophen [Tylenol Arthritis] 650 mg PO PRN PRN 03/18/18 04/19/18 History Albuterol HFA Inhaler [Ventolin 1 puff ORAL INH PRN PRN 03/18/18 04/19/18 History Hfa 90 mcg/actuation] Hydrocodone/APAP 5/325 [Morrow 1 - 2 tab PO Q6HR PRN #10 tab 03/18/18 04/19/18 Rx 5/325] Ibuprofen [Motrin] 400 - 800 mg PO Q6H PRN tab 03/18/18 04/19/18 Rx Furosemide [Lasix] 20 mg PO PRN PRN 04/19/18 04/19/18 History dilTIAZem HCl [Cartia Xt] 180 mg PO DAILY 04/19/18 04/19/18 History Allergies Allergy/AdvReac Type Severity Reaction Status Date / Time cefaclor AdvReac Intermediate "loss of Verified 03/18/18 08:29 muscle control" [facility] Patient Stated Medical History Cataracts Yes Cardiac Arrhythmia Yes: A FIB Congestive Heart Failure Yes: per H&P Hypertension Yes Asthma Yes Bronchitis Yes Chronic Obstructive Pulmonary Yes Disease (COPD) Pneumonia Yes Sleep Apnea Yes: high risk/COPD Gastroesophageal Reflux Yes: well controlled with meds Disease Ulcer Yes Shingles Yes Anesthesia Reactions Yes: airway problems Clinic Medical History (Last Updated 02/20/18 @ 13:15 by Kenna Huber) Anxiety (Acute Medical) Bronchitis (Acute Medical) CHF (congestive heart failure) (Acute Medical) Cataract (Acute Medical) Emphysema/COPD (Acute Medical) High blood pressure (Acute Medical) High cholesterol (Acute Medical) Hx of cataract (Acute Medical) Neuropathy (Acute Medical) Osteoarthritis (Acute Medical) Pneumonia (Acute Medical) Medical History Updates: IgG deficiency. Moderate pulmonary hypertension. Obesity with BMI 34.1 Surgical History: TAHBSO, appendectomy, cholecystectomy, arthroscopic procedure knee, cataract removal. insertion of PowerPort 03/18/2018 for IVIG therapy Derrick. Family History: Family History (Last Updated 02/20/18 @ 13:17 by Kenna Huber) Mother Cancer of lung Cancer Father Heart attack Arthritis Heart failure Brother Cancer of colon Skin cancer (melanoma) Family History Updates: Mother of oat cell cancer age 61. Father of heart disease at age 78. Sister of CHF at age 80. Brother still living, age 82. He has had cancer. Sister still living, age 76. Healthy. One daughter at age 54 of cardiac arrest. She has 2 sons and 2 daughters still living who are healthy. - Social History Smoking status: Former smoker Packs per day: 1 Packs-years: 30 Substance use type: does not use Alcohol intake frequency: holidays/special occasions only Household members: none Current occupational status: retired Current residence: Apartment/Private Home Review of Systems All systems PM: 10-point ROS was reviewed, no additional remarkable complaints except - Constitutional Constitutional: Absent: fever(s) - EENMT Eyes: Absent: change in vision - Cardiovascular Cardiovascular: Absent: chest pain - Respiratory Respiratory: Present: cough (nonproductive), dyspnea, wheezing - Gastrointestinal Gastrointestinal: Absent: diarrhea, nausea, vomiting - Genitourinary Genitourinary: Absent: dysuria - Integumentary/Breasts Integumentary: Absent: rash Integumentary Comments: soreness from former Port site - Neurological Neurological: Absent: headache(s) Exam Vital Signs: Temperature 96.3 F L 04/22/18 07:28 Pulse Rate 76 04/22/18 07:28 Respiratory Rate 22 04/22/18 09:43 Blood Pressure 189/79 H 04/22/18 07:28 Pulse Oximetry 92 04/22/18 07:38 Height/Weight/BMI: Height 1.57 m Weight 86.1 kg Body Mass Index 34.1 - Constitutional Present: no acute distress, well nourished, well developed - Routine HEENT Exam Head: Present: normocephalic, atraumatic Eye: Present: EOMI, PERRL ENT: Present: mucous membranes moist, oropharynx clear - Routine Neck Exam Present: supple - Routine Respiratory Exam Present: prolonged expiratory phase, wheezes (diffusely) Comments: On O2 by NC - Routine Cardiovascular Exam Present: RRR - Routine Abdominal Exam Present: soft, normoactive bowel sounds, non distended, non tender - Routine Exam Comments: no mcqueen - Routine Extremities Exam Absent: cyanosis, clubbing, edema, joint swelling - Routine Back/Spine/Pelvis Exam Back/Spine: Present: full ROM - Routine Skin Exam Absent: rash Comments: Former Port site R chest is covered with dressing. LUE midline in place - Routine Neurological Exam Present: alert, oriented X3, CN II-XII intact, normal speech. Absent: motor deficit - Routine Psychiatric Exam Present: normal affect, normal thought process Results - Labs CBC & Chem 7: 04/22/18 04:04 04/22/18 04:04 Microbiology Results: Microbiology 04/19/18 06:36 Peripheral/Iv Start Gram Stain - Final 04/19/18 06:36 Peripheral/Iv Start Blood Culture - Preliminary Coag negative Staphylococcus 04/20/18 15:33 Sputum, Expectorated Gram Stain - Final 04/20/18 15:33 Sputum, Expectorated Sputum Culture - Preliminary Early growth 04/19/18 06:41 Peripheral/Iv Start Blood Culture - Preliminary No Growth After 3 Days 04/19/18 10:01 Urine Streptococcus pneumoniae Antigen (M - Final 04/19/18 10:01 Urine Legionella Urinary Antigen - Final Impression: Sepsis, secondary to pulmonary source. CXR now improved. Sputum cx with early growth (per Micro, this appears to be only Nimo at this point). Diffuse wheezing, consistent with COPD exacerbation. Acute hypoxic respiratory failure One of two blood cultures with CoNS (initially reported as presumptive MRSA), likely a contaminant. CVID on monthly IVIG CHF with volume overload S/p Port-a-Cath placement 03/16 for IVIG, s/p removal of Port 04/21, cath tip culture pending Recommendation: I think the CoNS was a contaminant. Recommend stopping the Vancomycin. Continue ceftriaxone and doxycycline for another day, to complete 5 days. With the negative PCT, I'm not convinced that she needs continued antibiotics. I would continue diuresis and breathing treatments for her wheezing. I would leave her midline in for use next week when she gets her IVIG. I discussed other options for her regarding her IVIG. She is not interested in another Port. She could potentially have a PICC or we could consider subcutaneous immune globulin. Discussed with Dr. Alvarez.
[2018-04-22] MEDS: NYSTATIN 500,000 units/5 ml ORAL LIQUID PO SCH ×4 (11:28→20:42)
[2018-04-22] MEDS: DOXYCYCLINE 100 MG in NS 250ml 250 ML IV SCH (13:12)
--- NOTE | 2018-04-22 18:13 | Echocardiogram ---
DATE OF PROCEDURE 04/22/2018 PROCEDURE PERFORMED Transthoracic echocardiography, M-mode assessment, full color flow spectral Doppler assessment. FINDINGS 1. LEFT VENTRICLE: Left ventricle appears normal in size. Normal LV wall thickness noted. Normal left ventricular systolic function. Estimated LVEF 55%- 60%. No significant regional wall motion abnormalities noted. Grade 1 diastolic dysfunction indicative of impaired relaxation noted. 2. RIGHT VENTRICLE: Right ventricle appears normal in size. Normal right ventricular wall thickness noted. Normal RV systolic function noted. 3. RIGHT ATRIUM: Right atrium appears normal in size. 4. LEFT ATRIUM: Left atrium appears normal in size. 5. MITRAL VALVE: Mitral valve appears normal structure. No significant mitral stenosis noted. Only trivia mitral regurgitation noted. 6. AORTIC VALVE: Poorly visualized on today's study. Mild aortic sclerosis noted. No significant aortic stenosis noted. No significant aortic vegetations noted. 7. TRICUSPID VALVE: Tricuspid valve poorly visualized on today's study. Trivial tricuspid regurgitation noted. 8. PULMONIC VALVE: Pulmonic valve not visualized on today's study. 9. IVC normal in size. No respiratory variations noted. 10. PULMONARY ARTERY: Pulmonary artery pressure could not be estimated due to incomplete tricuspid regurgitation jet. CONCLUSION 1. Normal left ventricular systolic function. Estimated LVEF 55%-60%. 2. Normal RV systolic function. 3. Trivial mitral regurgitation noted. 4. Trivial tricuspid regurgitation noted. MTDD
--- NOTE | 2018-04-22 19:26 | Progress Note ---
DATE 04/22/2018 POSTOP DAY #1 HISTORY The patient is feeling better today. PHYSICAL EXAMINATION CHEST: The wound at the right anterior chest at the right infraclavicular area from the operation performed on 04/21/2018 looks good. No sign of infection at the wound. No fluid collection at the wound. IMPRESSION Doing well following removal of a PowerPort Vascular Access Device on 2017. PLAN I did tell the patient that we can leave dressings off of this wound at the right anterior chest. The patient can bathe and shower over this wound. KEISHA
[2018-04-22] MEDS: GABAPENTIN 600 MG TABLET PO SCH (20:41)
[2018-04-23] MEDS: DOXYCYCLINE 100 MG in NS 250ml 250 ML IV SCH ×2 (00:15→12:12)
[2018-04-23] MEDS: ALBUTEROL/IPRATROPIUM 2.5mg-0.5mg/3ml NEB AEROSOL SCH ×4 (06:44→19:28)
[2018-04-23] MEDS: BUDESONIDE INH.SOLN 0.5mg/2ml NEB AEROSOL SCH ×2 (06:45→19:28)
[2018-04-23] MEDS: APIXABAN 5 MG TABLET PO SCH ×2 (08:13→20:54)
[2018-04-23] MEDS: OMEPRAZOLE 20 MG CAPSULE PO SCH ×2 (08:13→20:53)
[2018-04-23] MEDS: FLECAINIDE 50 MG TABLET PO SCH ×2 (08:13→20:54)
[2018-04-23] MEDS: GUAIFENESIN/D-METHORPHAN 600mg/30mg TABLET PO PRN (08:14)
[2018-04-23] MEDS: BENZONATATE 100 MG CAPSULE PO PRN (08:14)
[2018-04-23] MEDS: ACETAMINOPHEN 325 MG TABLET PO PRN ×3 (08:14→20:54)
[2018-04-23] MEDS: FUROSEMIDE 40 MG/4 ML INJECTION IVP SCH ×2 (08:15→20:56)
[2018-04-23] MEDS: NYSTATIN 500,000 units/5 ml ORAL LIQUID PO SCH ×4 (08:15→20:55)
[2018-04-23] MEDS: CEFTRIAXONE 1 G in NS 100 ML IV SCH (08:15)
[2018-04-23] MEDS: SALINE FLUSH 10ml SYRINGE IV PRN ×2 (08:16→12:13)
--- NOTE | 2018-04-23 11:57 | Progress Note ---
- Date 04/23/18 Subjective: Valeria is seen today in follow up. She still has a coarse, fairly non- productive cough. SOA remains persistent, but stable. Site of port removal is tender, mild redness at site that she is concerned about, however the redness has been marked and does not extend around margins. Chart reviewed for collateral information. Objective Vital signs: Temperature 96.6 F L 04/23/18 07:20 Pulse Rate 84 04/23/18 08:00 Respiratory Rate 18 04/23/18 10:15 Blood Pressure 160/67 H 04/23/18 07:20 Pulse Oximetry 96 04/23/18 10:15 Height/Weight/BMI: Height 1.57 m Weight 84.1 kg Body Mass Index 34.1 - Constitutional Present: mild distress, obese, cooperative - Routine HEENT Exam Head: Present: normocephalic, atraumatic Eye: Present: EOMI, PERRL ENT: Present: mucous membranes moist - Routine Respiratory Exam Present: dyspnea, rhonchi (Coarse throughout. Diminished in bases. ), wheezes ( Expiratory), diminished air movement (In bases. ) - Routine Cardiovascular Exam Present: RRR, S1, S2 - Routine Abdominal Exam Present: soft, normoactive bowel sounds, non distended, non tender - Routine Extremities Exam Present: no edema, non tender - Routine Musculoskeletal Exam Musculoskeletal: Present: moving extremities well - Routine Skin Exam Present: dry, warm, wounds (Removal site of port with mild redness around site. No drainage. Well within marked borders. ) - Routine Neurological Exam Present: alert, oriented X3, moving all extremities - Routine Psychiatric Exam Present: normal affect, cooperative Results - Labs CBC & Chem 7: 04/23/18 04:02 04/23/18 04:02 Microbiology Results: Microbiology 04/20/18 15:33 Sputum, Expectorated Gram Stain - Final 04/20/18 15:33 Sputum, Expectorated Sputum Culture - Final Normal Resp Dorothy incl. Yeast 04/19/18 06:41 Peripheral/Iv Start Blood Culture - Preliminary No Growth After 4 Days 04/19/18 06:36 Peripheral/Iv Start Gram Stain - Final 04/19/18 06:36 Peripheral/Iv Start Blood Culture - Preliminary Coag negative Staphylococcus 04/21/18 11:05 Surgical Site Gram Stain - Final 04/21/18 11:05 Surgical Site Surgical Culture - Preliminary No Growth After 1 Day 04/19/18 10:01 Urine Streptococcus pneumoniae Antigen (M - Final 04/19/18 10:01 Urine Legionella Urinary Antigen - Final - Echocardiogram History of Echocardiogram: CONCLUSION. 1. Normal left ventricular systolic function. Estimated LVEF 55%-60%. 2. Normal RV systolic function. 3. Trivial mitral regurgitation noted. 4. Trivial tricuspid regurgitation noted. -valves w/o obvious vegetation. - Impressions CXR no acute findings per reading. I reviewed film- possible ongoing right LL atelectasis vs infiltrate in hilar area? Assessment and Plan (1) COPD exacerbation Current visit: Yes Status: Acute Assessment and Plan: Assessment Severe sepsis with progression to septic shock on 04/19/18 d/t lactate >4; with SALES ACCOUNT LEADER, concern for port/catheter related infection. Port removed 04/21/18. COPD exacerbation Community-acquired pneumonia. Hypoxic respiratory insufficiency. Baseline oxygen use is 2 L at night. Fluid overload History of A. fib, anticoagulated on Eliquis. In NSR at time of admission. Moderate pulmonary hypertension. Dyslipidemia. Hypertension. Osteoarthritis. Anxiety. Obesity, BMI 34.1 Plan 04/23/2018 Severe sepsis with SALES ACCOUNT LEADER, concern for port/catheter related infection -s/p port removal 04/21/18 Concern cx may have been contaminant. Hold Vanco and observe per ID notes. Community-acquired pneumonia with severe sepsis/shock -Continue IV Rocephin and doxycycline to cover for both pneumonia and COPD exacerbation. D#5 -Sputum culture results growing GPC, GPR, and GNR, urine antigens for Legionella and strep pneumoniae negative -CXR reviewed. Concern underlying viral component as well. Check Viral PCR. COPD with exacerbation -Wheezing ongoing. Could consider steroids, but hesitant due to immunocompromised status on outpatient IVIG. -DuoNeb treatments every 6 hours, Pulmicort twice a day. Acapella, IS. -Wean oxygen as tolerated. Still on 3 L supplemental oxygen via nasal cannula. -Check resp viral PCR. Fluid overload -Weight decreasing - wt down 2kg overnight. EF preserved, hx pHTN. -May be able to reduce IV Lasix dose - currently on 40 mg twice a day- continue current due to pulm status. -Renal function stable. Potassium normal on labs today- restart low dose due to IV Lasix. Repeat labs in AM. Ongoing supportive care. Plan to leave in Midline IV until IVIG can be given next week per Dr. Lindsay' note. DVT Prophylaxis: Eliquis GI Prophylaxis: Omeprazole Resuscitation Status: Limited Code - Physician Narrative Physician: Cris Stanley MD Narrative: Date: 04/23/18 Time: 1154 I have independently interviewed and examined patient. Patient chart reviewed. Case discussed with my IT APPLICATIONS DEVELOPER. Care plan developed with my supervision, agree with above. Patient resting in bed at the time of interview. Leukocytosis is resolved. Currently on IV Rocephin and doxycycline antibiotics. Sputum culture growing normal respiratory dorothy including yeast. Awaiting catheter tip culture results , so far negative. Respiratory viral panel negative. Physical exam: AAO x 3, in mild respiratory distress PERRLA, EOMI S1 and S2 heard on auscultation, no murmurs Lungs clear to auscultation bilaterally, no wheezing, no crackles Abdomen soft, nontender, positive bowel sounds No edema bilateral lower extremities. Data: Echocardiogram shows 1. Normal left ventricular systolic function. Estimated LVEF 55%-60%. 2. Normal RV systolic function. 3. Trivial mitral regurgitation noted. 4. Trivial tricuspid regurgitation noted. Assessment: Severe sepsis likely secondary to pneumonia, resolved. Concern for catheter related infection, status post port removal. Acute COPD exacerbation. Acute hypoxemic respiratory failure. Paroxysmal atrial fibrillation, anticoagulated with eliquis. Pulmonary hypertension. Hypertension, hyperlipidemia, osteoarthritis, anxiety. Plan: Sputum culture growing yeast, patient on nystatin. Will avoid Diflucan at this point as patient already on flecainide home medication, and has history of rhythm abnormalities. We will continue IV Rocephin and doxycycline. Nocturnal oximetry ordered for tonight, exercise oximetry ordered for tomorrow morning. Echocardiogram did not show any significant changes. Catheter tip culture results elevated, so far negative. Hospital Course Summary Disclaimer: The visit summary below is not to be considered part of the above Progress Note. Hospital Course: 04/19/18 Admit inpatient status under the hospitalist service. PCP: Dr. Santiago. COPD with exacerbation -She received IV Solu-Medrol in the ER. Will continue with prednisone 60 mg daily. -DuoNeb treatments every 6 hours, Pulmicort twice a day. -Acapella -Wean oxygen as able. Encourage ambulation -She's seen Dr. Castanon in the past. Community-acquired pneumonia with severe sepsis -She received Levaquin in the ER, but since she is on flecainide will change antibiotics to Rocephin and doxycycline to cover for both pneumonia and COPD exacerbation. -Sputum culture, urine antigens for Legionella and strep pneumoniae -Repeat lactate. Check pro calcitonin -She has not been hypotensive. History of A. fib -Telemetry -Continue Eliquis, Flecainide -Occupational Health Nurse Supervisor: Dr. Lind. Advanced directives -Completed: She has DPOA and living will. -Code status: DNR. 04/20/2018 Severe sepsis with Staphylococcus bacteria, concern for port/catheter related infection -IV vancomycin as per pharmacy dosing. -Patient placed under contact, droplet precautions. -Case discussed with infectious disease doctor sedimentationist at [facility] , Dr. Emery. Recommendation to remove port and continue antibiotic regimen. -Echocardiogram ordered next available -General surgery on-call, Dr. Schneider consulted to remove port. Tentative plan to remove port tomorrow morning. -Patient placed nothing by mouth after midnight. We will hold eliquis dose this evening and provide subcutaneous heparin 5000 units 1 instead. COPD with exacerbation -In view of sepsis, prednisone discontinued. -Wean oxygen as tolerated. Patient currently on 3 L supplemental oxygen via nasal cannula. Community-acquired pneumonia with severe sepsis -We'll continue IV Rocephin and doxycycline to cover for both pneumonia and COPD exacerbation. -Blood culture growing Staphylococcus, complete sensitivity results elevated -Sputum culture results elevated, urine antigens for Legionella and strep pneumoniae negative -Repeat lactate 3.7 this morning, repeat level 2.9. -She has not been hypotensive. Fluid overload -BNP 1360 when compared to 356 yesterday. -Cautious IV fluids normal saline at 40 mL per hour. 04/21/18 Severe sepsis with SALES ACCOUNT LEADER, concern for port/catheter related infection -IV vancomycin as per pharmacy dosing. -DC IVF d/t increased wheezing this morning. -Dr. Schneider removed port today. -Resume Eliquis post-procedure Community-acquired pneumonia with severe sepsis/shock -We'll continue IV Rocephin and doxycycline to cover for both pneumonia and COPD exacerbation. -Sputum culture results growing GPC, GPR, and GNR, urine antigens for Legionella and strep pneumoniae negative Fluid overload -BNP decreasing. 04/22/18 Severe sepsis with SALES ACCOUNT LEADER, concern for port/catheter related infection -IV vancomycin as per pharmacy dosing. -Dr. Lindsay consulted -Echocardiogram done this am; pending -s/p port removal 04/21/18 Community-acquired pneumonia with severe sepsis/shock -Continue IV Rocephin and doxycycline to cover for both pneumonia and COPD exacerbation. -repeat CXR today COPD with exacerbation -Wheezing improved; hold off on steroids. Fluid overload -Weight decreasing; fluid up about 500 mL. -May be able to reduce IV Lasix dose - currently on 40 mg twice a day -Renal function stable. Noted hyperkalemia on grossly hemolyzed specimen this am. 04/23/2018 Severe sepsis with SALES ACCOUNT LEADER, concern for port/catheter related infection -s/p port removal 04/21/18 Concern cx may have been contaminant. Hold Vanco and observe per ID notes. Community-acquired pneumonia with severe sepsis/shock -Continue IV Rocephin and doxycycline to cover for both pneumonia and COPD exacerbation. D#5 -Sputum culture results growing GPC, GPR, and GNR, urine antigens for Legionella and strep pneumoniae negative -CXR reviewed. Concern underlying viral component as well. Check Viral PCR. COPD with exacerbation -Wheezing ongoing. Could consider steroids, but hesitant due to immunocompromised status on outpatient IVIG. -DuoNeb treatments every 6 hours, Pulmicort twice a day. Acapella, IS. -Wean oxygen as tolerated. Still on 3 L supplemental oxygen via nasal cannula. -Check resp viral PCR. Fluid overload -Weight decreasing - wt down 2kg overnight. EF preserved, hx pHTN. -May be able to reduce IV Lasix dose - currently on 40 mg twice a day- continue current due to pulm status. -Renal function stable. Potassium normal on labs today- restart low dose due to IV Lasix. Repeat labs in AM. Ongoing supportive care. Plan to leave in Midline IV until IVIG can be given next week per Dr. Lindsay' note
[2018-04-23] MEDS ORDERED: NS FLUSH BAG 500ml IV PRN (13:03)
[2018-04-23 18:23] VITALS: BMI 33.9
--- NOTE | 2018-04-23 20:29 | Progress Note ---
DATE 04/23/2018 POSTOP DAY #2 HISTORY The patient is feeling better each day. She is hoping to go home tomorrow. PHYSICAL EXAMINATION CHEST: The wound at the right anterior chest at the right infraclavicular area from the operation performed on 04/21/2018 looks good. There is no sign of infection at the wound. There is no fluid collection at the wound. No wound- healing problems. IMPRESSION Doing well following removal of PowerPort Vascular Access Device on 04/21/2018. PLAN Continue current care. KEISHA
[2018-04-23] MEDS: GABAPENTIN 600 MG TABLET PO SCH (20:53)
[2018-04-24] MEDS: DOXYCYCLINE 100 MG in NS 250ml 250 ML IV SCH (00:01)
[2018-04-24] MEDS: LORazepam 0.5 MG TABLET PO PRN (00:05)
[2018-04-24] MEDS: BENZONATATE 100 MG CAPSULE PO PRN ×2 (00:06→09:53)
[2018-04-24] MEDS: ALBUTEROL/IPRATROPIUM 2.5mg-0.5mg/3ml NEB AEROSOL SCH ×2 (06:19→10:53)
[2018-04-24] MEDS: BUDESONIDE INH.SOLN 0.5mg/2ml NEB AEROSOL SCH (06:19)
[2018-04-24 07:16] VITALS: BP 151/69; TEMP 96.2
[2018-04-24 08:14] VITALS: PULSE 90
[2018-04-24] MEDS: NYSTATIN 500,000 units/5 ml ORAL LIQUID PO SCH (08:18)
[2018-04-24] MEDS: CEFTRIAXONE 1 G in NS 100 ML IV SCH (08:18)
[2018-04-24] MEDS: FUROSEMIDE 40 MG/4 ML INJECTION IVP SCH (08:18)
[2018-04-24] MEDS: OMEPRAZOLE 20 MG CAPSULE PO SCH (08:18)
[2018-04-24] MEDS: APIXABAN 5 MG TABLET PO SCH (08:18)
[2018-04-24] MEDS: FLECAINIDE 50 MG TABLET PO SCH (08:18)
--- NOTE | 2018-04-24 09:38 | ID Progress Note ---
Subjective Date: 04/24/18 Subjective: Ms. Marcum reports that she's feeling better, but still is coughing a lot and wheezing. Her cough is nonproductive. She is still on 1.5 to 2L of O2. Denies fever, chills, N/V/D. Exam Vital Signs: Temperature 96.2 F L 04/24/18 07:14 Pulse Rate 90 04/24/18 08:00 Respiratory Rate 18 04/24/18 07:14 Blood Pressure 151/69 H 04/24/18 07:14 Pulse Oximetry 93 04/24/18 07:14 Height/Weight/BMI: Height 1.57 m Weight 83.7 kg Body Mass Index 33.9 - Constitutional Present: no acute distress, well nourished, well developed - Routine HEENT Exam Head: Present: normocephalic, atraumatic Eye: Present: EOMI, PERRL ENT: Present: mucous membranes moist, oropharynx clear - Routine Neck Exam Present: supple - Routine Respiratory Exam Present: wheezes (diffusely). Absent: respiratory distress, rhonchi Comments: On O2 2L - Routine Cardiovascular Exam Present: RRR - Routine Abdominal Exam Present: soft, normoactive bowel sounds, non distended, non tender - Routine Exam Comments: no mcqueen - Routine Extremities Exam Absent: cyanosis, clubbing, edema - Routine Skin Exam Absent: rash Comments: former Port site looks good, incision intact - Routine Neurological Exam Present: alert, oriented X3, CN II-XII intact, normal speech. Absent: motor deficit - Routine Psychiatric Exam Present: normal affect, normal thought process Results - Labs CBC & Chem 7: 04/24/18 03:58 04/24/18 03:58 Microbiology Results: Microbiology 04/19/18 06:41 Peripheral/Iv Start Blood Culture - Final No Growth After 5 Days 04/21/18 11:05 Surgical Site Gram Stain - Final 04/21/18 11:05 Surgical Site Surgical Culture - Preliminary No Growth After 2 Days 04/20/18 15:33 Sputum, Expectorated Gram Stain - Final 04/20/18 15:33 Sputum, Expectorated Sputum Culture - Final Normal Resp Dorothy incl. Yeast 04/19/18 06:36 Peripheral/Iv Start Gram Stain - Final 04/19/18 06:36 Peripheral/Iv Start Blood Culture - Preliminary Coag negative Staphylococcus 04/19/18 10:01 Urine Streptococcus pneumoniae Antigen (M - Final 04/19/18 10:01 Urine Legionella Urinary Antigen - Final Impression: Sepsis, secondary to pulmonary source. CXR now improved. Sputum cx with normal dorothy. Diffuse wheezing, consistent with COPD exacerbation. Acute hypoxic respiratory failure One of two blood cultures with CoNS (initially reported as presumptive MRSA), likely a contaminant. CVID on monthly IVIG CHF with volume overload S/p Port-a-Cath placement 03/16 for IVIG, s/p removal of Port 04/21, cath tip culture negative Recommendation: Recommend stopping antibiotics today. I think she might need some Prednisone for her wheezing. OK to d/c home at your discretion. I'll see her in my office in follow up in a few weeks. Please keep [employer] in for her IVIG infusion next week.
[2018-04-24] MEDS: ACETAMINOPHEN 325 MG TABLET PO PRN (09:52)
--- NOTE | 2018-04-24 10:13 | Progress Note ---
DATE 04/24/2018 POSTOP DAY #3 HISTORY The patient is doing well. She is feeling better each day. PHYSICAL EXAMINATION CHEST: The wound at the right anterior chest at the right infraclavicular area where the operation was performed on 04/21/2018 looks good. There is no sign of infection at the wound. There is no sign of any wound healing problems. There is no fluid collection at the wound. IMPRESSION Doing well following removal of PowerPort vascular access device on 04/21/2018. PLAN I did give the patient an appointment card for a postoperative office visit appointment with Dr. Schneider next week to recheck the wound at the right infraclavicular area after she has been dismissed from the hospital. KEISHA
[2018-04-24 11:06] VITALS: RESP 20
[2018-04-24 11:52] VITALS: O2SAT 86
--- NOTE | 2018-04-24 12:57 | Discharge Summary ---
Discharge Information Date of admission: 04/19/18 07:53 Anticipated date of discharge: 04/24/18 Attending Physician: Cris Stanley MD Primary care physician: Feli Santiago DO Consults: Consulting Provider: Varghese Schneider Consulting Provider: Windy Lindsay - Discharge Diagnosis (1) COPD exacerbation Status: Acute Severe sepsis with progression to septic shock on 04/19/18 d/t lactate >4; with NETWORK SECURITY CONSULTANT, concern for port/catheter related infection. Port removed 04/21/18. COPD exacerbation Community-acquired pneumonia. Hypoxic respiratory insufficiency. Baseline oxygen use is 2 L at night. Fluid overload History of A. fib, anticoagulated on Eliquis. In NSR at time of admission. Moderate pulmonary hypertension. Dyslipidemia. Hypertension. Osteoarthritis. Anxiety. Obesity, BMI 34.1 - Procedures Procedures: 04/21/18-removal of PowerPort vascular access device by Dr. Schneider - Laboratory Labs: 04/24/18 03:58 04/24/18 03:58 Laboratory Tests 04/19/18 04/19/18 04/19/18 06:37 11:30 15:22 Plasma Lactate 2.8 H 3.7 H 4.1 H* 04/19/18 04/20/18 04/20/18 18:25 09:03 13:24 Plasma Lactate 4.0 H 3.7 H 2.9 H Laboratory Tests 04/19/18 04/20/18 04/21/18 06:17 09:03 03:56 NT-Pro-B Natriuret Pep 356 H 1360 H 1070 H Laboratory Tests 04/23/18 12:20 Adenovirus (PCR) Negative B.parapertussis DNA PCR Negative C. pneumoniae DNA (PCR) Negative Coronavirus OC43 (PCR) Negative Coronavirus HKU1 (PCR) Negative Coronavirus 229E (PCR) Negative Coronavirus NL63 (PCR) Negative Human Metapneumovir PCR Negative Influenza Type A (PCR) Negative Influenza Type B (PCR) Negative M. pneumoniae (PCR) Negative Parainfluenza 1 (PCR) Negative Parainfluenza 2 (PCR) Negative Parainfluenza 3 (PCR) Negative Parainfluenza 4 (PCR) Negative RSV (PCR) Negative Entero/Rhino (PCR) Negative - Microbiology Microbiology 04/21/18 11:05 Surgical Site Gram Stain - Final 04/21/18 11:05 Surgical Site Surgical Culture - Final No Growth After 3 Days 04/19/18 06:41 Peripheral/Iv Start Blood Culture - Final No Growth After 5 Days 04/20/18 15:33 Sputum, Expectorated Gram Stain - Final 04/20/18 15:33 Sputum, Expectorated Sputum Culture - Final Normal Resp Rona incl. Yeast 04/19/18 06:36 Peripheral/Iv Start Gram Stain - Final 04/19/18 06:36 Peripheral/Iv Start Blood Culture - Preliminary Coag negative Staphylococcus 04/19/18 10:01 Urine Streptococcus pneumoniae Antigen (M - Final 04/19/18 10:01 Urine Legionella Urinary Antigen - Final - Radiology Radiology: 04/19/18-chest x-ray-right basilar pneumonia 04/20/18-Chest Xray- Improvement in above 04/22/18-chest x-ray-no acute process noted 04/22/18-echocardiogram 1. Normal left ventricular systolic function. Estimated LVEF 55%-60%. 2. Normal RV systolic function. 3. Trivial mitral regurgitation noted. 4. Trivial tricuspid regurgitation noted. - Pathology None History of Present Illness HPI: Delma Marcum is a 77-year-old female with a history of COPD, and uses 2L of nocturnal oxygen. She reports a 1-week history of progressive dyspnea along with a cough which has turned productive with yellow sputum. She has been using oxygen during the day to keep her sats up. She has increased her breathing treatment frequency. She has had mild sinus congestion but denies sore throat. She denies fevers, chills or sweating. She denies chest pain, palpitations, dizziness or lightheadedness. She denies appetite changes, nausea, vomiting, diarrhea or constipation. She has urinary frequency related to Lasix use but denies dysuria. She occasionally has leg swelling for which she takes Lasix. She denies any rashes or wounds. No recent falls. She saw her primary care provider, Dr. Santiago, on 04/18/18 and was started on prednisone. However, that evening she was unable to sleep because of dyspnea. She presented to [facility] emergency department on 04/19/18. Her oxygen saturation was 78% on 3 L flow rate was increased to 6 L. She was started on Solu-Medrol and given a DuoNeb treatment. Her white count was normal, but lactate was elevated at 2.8. Chest x-ray showed right sided pneumonia and she was started on Levaquin. Dr. Stanley was contacted and the patient was admitted to inpatient status. Length of stay is expected to exceed 2 overnights. Objective Vital signs: Temperature 96.2 F L 04/24/18 07:14 Pulse Rate 90 04/24/18 08:00 Respiratory Rate 20 04/24/18 10:53 Blood Pressure 151/69 H 04/24/18 07:14 Pulse Oximetry 86 L 04/24/18 11:50 Height/Weight/BMI: Height 1.57 m Weight 83.7 kg Body Mass Index 33.9 - Constitutional Present: no acute distress, well nourished, well developed - Routine HEENT Exam Eye: Present: EOMI ENT: Present: mucous membranes moist, dentition normal - Routine Respiratory Exam Present: decreased breath sounds. Absent: wheezes - Routine Cardiovascular Exam Present: RRR, S1, S2. Absent: murmur - Routine Abdominal Exam Present: soft, normoactive bowel sounds, non distended. Absent: tenderness - Routine Extremities Exam Present: normal capillary refill - Routine Skin Exam Present: intact, dry, warm - Routine Neurological Exam Present: alert, oriented X3, CN II-XII intact - Routine Lymphatic Exam Lymphatic: Absent: adenopathy - Routine Psychiatric Exam Present: normal affect, normal thought process, cooperative Hospital Course This is a general summary of the patient's hospital course. For more details refer to the complete medical record. Hospital course: 04/19/18- Admission Admit inpatient status under the hospitalist service. PCP: Dr. Santiago. COPD with exacerbation -She received IV Solu-Medrol in the ER. Will continue with prednisone 60 mg daily. -DuoNeb treatments every 6 hours, Pulmicort twice a day. -Acapella -Wean oxygen as able. Encourage ambulation -She's seen Dr. Castanon in the past. Community-acquired pneumonia with severe sepsis -She received Levaquin in the ER, but since she is on flecainide will change antibiotics to Rocephin and doxycycline to cover for both pneumonia and COPD exacerbation. -Sputum culture, urine antigens for Legionella and strep pneumoniae -Repeat lactate. Check pro calcitonin -She has not been hypotensive. History of A. fib -Telemetry -Continue Eliquis, Flecainide -Desktop Architect: Dr. Lind. Advanced directives -Completed: She has DPOA and living will. -Code status: DNR. 04/20/2018 Severe sepsis with Staphylococcus bacteria, concern for port/catheter related infection -IV vancomycin as per pharmacy dosing. -Patient placed under contact, droplet precautions. -Case discussed with infectious disease doctor tongue presser at [facility] , Dr. Emery. Recommendation to remove port and continue antibiotic regimen. -Echocardiogram ordered next available -General surgery on-call, Dr. Schneider consulted to remove port. Tentative plan to remove port tomorrow morning. -Patient placed nothing by mouth after midnight. We will hold eliquis dose this evening and provide subcutaneous heparin 5000 units 1 instead. COPD with exacerbation -In view of sepsis, prednisone discontinued. -Wean oxygen as tolerated. Patient currently on 3 L supplemental oxygen via nasal cannula. Community-acquired pneumonia with severe sepsis -We'll continue IV Rocephin and doxycycline to cover for both pneumonia and COPD exacerbation. -Blood culture growing Staphylococcus, complete sensitivity results elevated -Sputum culture results elevated, urine antigens for Legionella and strep pneumoniae negative -Repeat lactate 3.7 this morning, repeat level 2.9. -She has not been hypotensive. Fluid overload -BNP 1360 when compared to 356 yesterday. -Cautious IV fluids normal saline at 40 mL per hour. 04/21/18 Severe sepsis with NETWORK SECURITY CONSULTANT, concern for port/catheter related infection -IV vancomycin as per pharmacy dosing. -DC IVF d/t increased wheezing this morning. -Dr. Schneider removed port today. -Resume Eliquis post-procedure Community-acquired pneumonia with severe sepsis/shock -We'll continue IV Rocephin and doxycycline to cover for both pneumonia and COPD exacerbation. -Sputum culture results growing GPC, GPR, and GNR, urine antigens for Legionella and strep pneumoniae negative Fluid overload -BNP decreasing. 04/22/18 Severe sepsis with NETWORK SECURITY CONSULTANT, concern for port/catheter related infection -IV vancomycin as per pharmacy dosing. -Dr. Lindsay consulted -Echocardiogram done this am; pending -s/p port removal 04/21/18 Community-acquired pneumonia with severe sepsis/shock -Continue IV Rocephin and doxycycline to cover for both pneumonia and COPD exacerbation. -repeat CXR today COPD with exacerbation -Wheezing improved; hold off on steroids. Fluid overload -Weight decreasing; fluid up about 500 mL. -May be able to reduce IV Lasix dose - currently on 40 mg twice a day -Renal function stable. Noted hyperkalemia on grossly hemolyzed specimen this am. 04/23/2018 Severe sepsis with NETWORK SECURITY CONSULTANT, concern for port/catheter related infection -s/p port removal 04/21/18 Concern cx may have been contaminant. Hold Vanco and observe per ID notes. Community-acquired pneumonia with severe sepsis/shock -Continue IV Rocephin and doxycycline to cover for both pneumonia and COPD exacerbation. D#5 -Sputum culture results growing GPC, GPR, and GNR, urine antigens for Legionella and strep pneumoniae negative -CXR reviewed. Concern underlying viral component as well. Check Viral PCR. COPD with exacerbation -Wheezing ongoing. Could consider steroids, but hesitant due to immunocompromised status on outpatient IVIG. -DuoNeb treatments every 6 hours, Pulmicort twice a day. Acapella, IS. -Wean oxygen as tolerated. Still on 3 L supplemental oxygen via nasal cannula. -Check resp viral PCR. Fluid overload -Weight decreasing - wt down 2kg overnight. EF preserved, hx pHTN. -May be able to reduce IV Lasix dose - currently on 40 mg twice a day- continue current due to pulm status. -Renal function stable. Potassium normal on labs today- restart low dose due to IV Lasix. Repeat labs in AM. Ongoing supportive care. Plan to leave in Midline IV until IVIG can be given next week per Dr. Lindsay' note 04/24/18- Discharge Delma is seen and examined today prior to discharge. She continues to require 2 liters of oxygen by nasal cannula at rest. Ambulatory oximetry, does reveal that she will need 4 liters of oxygen with exertion. Overall she feels that her breathing is stable and feels ready to be discharged home. She would like to start on oral prednisone that she has at home for a two-week tapered to help with her breathing. She is instructed to resume her home dosing of lasix while following daily weights. Take for >3 lbs gain in a day. Otherwise, she will return on her normal home medications. She will need to follow closely with her primary care provider, Dr. Feli Santiago in 1 week, as well as infectious disease , Dr. Lindsay in the next 2 weeks. Discharged in stable condition. Time spent with patient: discharge greater than 30 minutes Resuscitation Status: Limited Code Discharge Plan - Discharge Disposition Discharge Date: 04/24/18 Disposition: 01 Discharged Home, Self-Care *Condition: Improved Reason For Visit (Visit label in EMR): COPD exacerbation - Discharge Medications *Discharge Medications: New predniSONE [Prednisone] 10 mg PO DAILY #20 tab Continue Flecainide [Tambocor] 50 mg PO BID #60 tab Gabapentin [Neurontin] 600 mg PO HS Hydrocodone/APAP 5/325 [[place] 5/325] 1 - 2 tab PO Q6HR PRN #10 tab PRN Reason: Pain Furosemide [Lasix] 20 mg PO PRN PRN PRN Reason: weight gain Apixaban [Eliquis] 5 mg PO BID #60 tab Allopurinol [Zyloprim] 100 mg PO PRN PRN PRN Reason: Gout Pain Albuterol HFA Inhaler [Ventolin Hfa 90 mcg/actuation] 1 puff ORAL INH PRN PRN PRN Reason: Shortness Of Air/Wheezing Acetaminophen [Tylenol Arthritis] 650 mg PO PRN PRN PRN Reason: Pain Ibuprofen [Motrin] 400 - 800 mg PO Q6H PRN tab PRN Reason: Pain dilTIAZem HCl [Cartia Xt] 180 mg PO DAILY Prilosec (Omeprazole) 20 mg capsule,delayed release 20 mg PO BID 90 Days # 180 cap - Discharge Packet/Instructions *Diet: Cardiac diet with 2 gm sodium *Activity: As tolerated *Pain Management/Treatment: Home [place] as needed for pain control *Wound Care: None Additional Instructions: Take prednisone taper that you have at home as directed , 2 week taper. Use 4 liters of oxygen with ambulation and exertion, 2 liters of oxygen at night *Expected Signs/Symptoms: Improvement in breathing *Notify Physician if: Fever, chills, worsening shortness of breath, chest pain or other concerning symptoms *During Business Hours Contact: PCP Dr Santiago *After Business Hours Contact: Present to the ER *Pending Lab/Results: Follow up w/Provider - Referrals/Follow Up *Referrals/Follow Up: Windy Lindsay MD [Physician] - 05/21/18 2:20 pm (Schedule follow-up appointment for 2 weeks) Feli Santiago DO [Primary Care Provider] - 05/01/18 8:40 am (Schedule follow- up appointment for one week) - Patient Handouts Patient Handouts: COPD (Chronic Obstructive Pulmonary Disease) (GEN) - Dismissal Complete Discharge Instructions are:: Complete Physician Narrative - Narrative Physician: Cris Stanley MD Attestation Narrative: Date: 04/24/18 Time: 7373 I have independently interviewed and examined patient. Patient chart reviewed. Case discussed with my PRINT CONTROLLER. Care plan developed with my supervision, agree with above. A pleasant 77-year-old female patient admitted with shortness of breath, subjective fever. Initial consideration for COPD exacerbation with underlying community-acquired pneumonia. Patient noted to have severe sepsis with lactic acid greater than 4 during hospital stay requiring cautious IV fluid challenges. Blood cultures initially reported to be Staphylococcus aureus, methicillin-resistant and at this point patient placed under contact and droplet precautions. Patient on IV vancomycin, IV Rocephin and doxycycline antibiotics. Patient has a history of CVID and requiring monthly IVIG injections. Patient has PowerPort placed on 03/18/2018, and general surgery on- call, Dr. Schneider was consulted to remove port after case was discussed with infectious disease doctor tongue presser at [facility], Dr. Yuly Nathan. Thereafter, port was removed and later blood culture growing coagulase-negative bacteria. Patient was also seen by infectious disease doctor, Dr. Lindsay at bedside after she was available on Sunday. Recommendation to stop IV vancomycin and then DC precautions. Echocardiogram ordered, did not show any significant valvular abnormalities. As per infectious disease doctor, patient discharged on 2 week prednisone taper (which she already has a prescription off at home). Follow-up with PCP, infectious diseases, product introduction manager on discharge.
== END 2018-04-24 13:53 | disposition home or self-care (01) | DRG 853 ==
LOC: ED 05:48 → EDHOLD 07:53 → MED 08:20 → EDHOLD 08:30
PROVIDERS: ADMIT Internal Medicine; ATTEND Internal Medicine